=== PATIENT | male | born 1945 | race Caucasian/White ===

== ENCOUNTER 2019-05-18 07:57 | Inpatient (IN) ==
--- NOTE | 2019-05-06 10:32 | PAT Medication Instructions ---
Medication Instructions Date of Service May 06, 2019 Home Medications Medication Instructions Recorded albuterol sulfate 90 mcg/actuation 2 puffs INH Q6H PRN #8.5 gm 12/23/18 aerosol inhaler varenicline 1 mg tablet 1 mg PO BID #60 tab 04/10/19 CPAP Machine #1 ea 04/22/19 miscellaneous medical supply #1 ea 04/22/19 albuterol sulfate 90 mcg/actuation aerosol inhaler 2 puffs INH Q6H PRN aspirin 81 mg tablet,delayed release 81 mg PO DAILY atorvastatin 20 mg tablet 20 mg PO QAM citalopram 40 mg tablet 60 mg PO QAM clopidogrel 75 mg tablet 75 mg PO QAM insulin glargine 100 unit/mL (3 mL) subcutaneous pen 64 units SQ QAM magnesium oxide 200 mg PO BID metformin 1,000 mg tablet 1,000 mg PO BID nitroglycerin 0.4 mg sublingual tablet 0.4 mg SL Q5M PRN pantoprazole 40 mg tablet,delayed release 40 mg PO QAM sitagliptin 100 mg tablet 100 mg PO QAM tolterodine 4 mg capsule,extended release 24 hr 4 mg PO HS valsartan 40 mg tablet 40 mg PO HS varenicline 1 mg tablet 1 mg PO BID gabapentin [Neurontin] 600 mg PO TID Continue as directed nitroglycerin 0.4 mg sublingual tablet 0.4 mg SL Q5M PRN (if needed) ASK your prescriber and surgeon aspirin 81 mg tablet,delayed release 81 mg PO DAILY clopidogrel 75 mg tablet 75 mg PO QAM DO NOT take the morning of surgery magnesium oxide 200 mg PO BID metformin 1,000 mg tablet 1,000 mg PO BID sitagliptin 100 mg tablet 100 mg PO QAM varenicline 1 mg tablet 1 mg PO BID Take morning of surgery With a small sip of water, OTHERWISE NOTHING TO EAT OR DRINK AFTER MIDNIGHT: albuterol sulfate 90 mcg/actuation aerosol inhaler 2 puffs INH Q6H PRN (use if needed; please bring with you to hospital day of surgery if possible) atorvastatin 20 mg tablet 20 mg PO QAM citalopram 40 mg tablet 60 mg PO QAM pantoprazole 40 mg tablet,delayed release 40 mg PO QAM sitagliptin 100 mg tablet 100 mg PO QAM gabapentin [Neurontin] 600 mg PO TID Take evening before surgery albuterol sulfate 90 mcg/actuation aerosol inhaler 2 puffs INH Q6H PRN (if needed) magnesium oxide 200 mg PO BID metformin 1,000 mg tablet 1,000 mg PO BID tolterodine 4 mg capsule,extended release 24 hr 4 mg PO HS valsartan 40 mg tablet 40 mg PO HS varenicline 1 mg tablet 1 mg PO BID gabapentin [Neurontin] 600 mg PO TID Insulin Dependent Diabetic Patients * Test your blood sugar the morning of surgery * If Blood Sugar is GREATER THAN 150, take HALF of your regular dose of: insulin glargine take 32 units * If Blood Sugar is LESS THAN 150, DO NOT TAKE ANY: insulin glargine Other Notes If you have any questions please call us at [phone] or [phone] or [phone] or [phone]
--- NOTE | 2019-05-07 10:25 | Anesthesiology Consultation ---
Date of Service May 07, 2019 Assessment & Plan (1) Encounter for pre-operative examination: - Awaiting most recent vascular note (Dr. Connor). - Cardiology office visit: 04/23/19: "CHF is clinically compensated.. patient is cleared for the required back surgery from cardiac standpoint.. he will be low cardiac risk." - Check BSG AM DOS - ASA/plavix instructions per surgeon/prescriber - Possible difficult intubation: due to anatomy Chart Review Chart Review: Patient seen in Pre Admission Testing Teaching & Discussion Pre-Anesthesia Teaching/Discussion Notes: Instructed NPO after midnight before surgery,except medications with 15 cc of water. Medication instructions provided according to the PAT guidelines. History Surgery Operation Date: 05/21/19 09:55 Proposed Procedures p L5-S1 Decompression and Fusion, Possible L4-L5, Spinal Cord Monitoring - Wilberto Garcia DO Height/Weight Height: 5 ft 11 in Weight: 96.8 kg Allergies Allergy/AdvReac Type Severity Reaction Status Date / Time adhesive Allergy Unknown ADHESIVE Verified 05/07/19 11:00 TAPE: REDNESS AND BLISTERS Medications Home Medications Medication Instructions Recorded Confirmed Last Taken albuterol sulfate 90 mcg/actuation 2 puffs INH Q6H PRN #8.5 gm 12/23/18 04/30/19 Unknown aerosol inhaler aspirin 81 mg tablet,delayed 81 mg PO DAILY 12/23/18 04/30/19 Unknown release atorvastatin 20 mg tablet 20 mg PO QAM 12/23/18 04/30/19 Unknown citalopram 40 mg tablet 60 mg PO QAM 12/23/18 04/30/19 Unknown clopidogrel 75 mg tablet 75 mg PO QAM 12/23/18 04/30/19 Unknown insulin glargine 100 unit/mL (3 64 units SQ QAM ml 12/23/18 04/30/19 Unknown mL) subcutaneous pen magnesium oxide 200 mg PO BID tab 12/23/18 04/30/19 Unknown metformin 1,000 mg tablet 1,000 mg PO BID 12/23/18 04/30/19 Unknown nitroglycerin 0.4 mg sublingual 0.4 mg SL Q5M PRN 12/23/18 04/30/19 Unknown tablet pantoprazole 40 mg tablet,delayed 40 mg PO QAM 12/23/18 04/30/19 Unknown release sitagliptin 100 mg tablet 100 mg PO QAM 12/23/18 04/30/19 Unknown tolterodine 4 mg capsule,extended 4 mg PO HS 12/23/18 04/30/19 Unknown release 24 hr valsartan 40 mg tablet 40 mg PO HS tab 12/23/18 04/30/19 Unknown varenicline 1 mg tablet 1 mg PO BID #60 tab 04/10/19 04/30/19 Unknown CPAP Machine #1 ea 04/22/19 Unknown miscellaneous medical supply #1 ea 04/22/19 Unknown gabapentin [Neurontin] 600 mg PO TID 04/30/19 04/30/19 Unknown Past Medical History Medical History (Updated 05/07/19 @ 10:41 by Maria Ellison) Arthritis CAD (coronary artery disease) angioplasty/KARRIE to pRCA (2014) Carotid arterial disease "mild plaquing but no ICA stenosis.. severe left ECA stenosis" per cardiology office visit note 03/2019 Cataract COPD (chronic obstructive pulmonary disease) stable Diabetes IDDM GERD (gastroesophageal reflux disease) controlled Hyperlipidemia Hypertension Lung nodule R Peripheral arterial occlusive disease "total occlusion of the SFA and the left mid thigh area with reconstitution with collaterals and monophasic flow bilateral below knee area" per cardiology office visit note 03/2019 Sleep apnea prescribed CPAP (has not arrived yet as of 05/07/19 PAT visit) Spinal stenosis Urinary problem urinary hesitancy Exercise / Class Metabolic Activity III < 4 Walking/Shop/Light housework Past Family History Family History Mother Diabetes Heart disease Father Cancer Past Surgical History Surgical History (Updated 05/07/19 @ 10:43 by Maria Ellison) History of arthroscopy of right shoulder History of cardiac cath stent x1 (2014) History of colonoscopy History of hernia surgery X2 History of repair of left rotator cuff History of thumb surgery BILAT History of tonsillectomy Past Anesthesia History No Hx of Anesthesia Complications and No Family Hx of Anesthesia Complications History of PONV No Hx of PONV and No Hx of Motion Sickness Social History Smoking Status: Current every day smoker tobacco type: cigarettes Smoking cigarettes per day: 10 CIGS/PER DAY- TAPERING (INTERMITTENT TOBACCO USE X 50+ YEARS) Do You Dip or Chew Tobacco: No Hx Alcohol Use: Yes alcohol intake frequency: holidays/special occasions only Hx Substance Use: No substance use type: does not use Review of Systems Chronic cough (unchanged). Patient denies chest pain, shortness of breath, wheezing, palpitations. Physical Exam Vital Signs VITALS BP 150/83 P 87 TEMP 98.0 SP02 96%RA RESP 18 PHYSICAL Full neck and c-spine range of motion. Full TMJ range of motion. TMD 3.5 finger breaths Mallampati Score 4 (small oral opening) Dentition: several missing teeth, poor dentition Lungs: clear throughout to auscultation Cardiac: regular rate and rhythm, no murmurs noted Spine: normal Carotid arteries: negative bruit Extremities: no edema Testing Laboratory Results 05/07/19 10:58 05/07/19 10:58 PT 10.5 Seconds (9.0-12.0) 05/07/19 10:58 INR 1.0 (0.9-1.1) 05/07/19 10:58 APTT 27.6 Seconds (21.0-31.0) 05/07/19 10:58 Hemoglobin A1c 8.3 % (4.5-5.6) H 05/07/19 10:58 Urine Color Yellow 05/07/19 10:58 Urine Appearance Clear (Clear) 05/07/19 10:58 Urine pH 6.0 (4.5-7.5) 05/07/19 10:58 Ur Specific [place] 1.017 (1.000-1.030) 05/07/19 10:58 Urine Protein 3+ (Negative) H 05/07/19 10:58 Urine Glucose (UA) Trace (Negative) H 05/07/19 10:58 Urine Ketones Negative (Negative) 05/07/19 10:58 Urine Nitrite Negative (Negative) 05/07/19 10:58 Ur Leukocyte Esterase Negative (Negative) 05/07/19 10:58 Urine WBC (Auto) 1-5 /hpf (0-5) 05/07/19 10:58 Urine RBC (Auto) 10-30 /hpf (0-4) H 05/07/19 10:58 U Hyaline Cast (Auto) 0 /lpf (0-5) 05/07/19 10:58 U Epithel Cells (Auto) 0-5 /lpf (0-5) 05/07/19 10:58 Urine Bacteria (Auto) Negative (Negative) 05/07/19 10:58 Blood Type AB Positive 05/07/19 10:58 Antibody Screen NEGATIVE 05/07/19 10:58 *Surgeon's office made aware of elevated hgba1c/WBC. Labs will be forwarded to PCP for their reference* Electrocardiogram Date: 04/23/19 SR at 89bpm. Low voltage is precordial leads. PRWP V1-V3. Stress Test Date: 12/19/18 Type: nuclear (Lexiscan) Lexiscan stress EKG was negative for myocardial ischemia. "No ischemia noted, LVEF 47%" per cardiology office visit from 04/23/19- attempts to obtain official report nuclear portion of stress test unsuccessful. Cardiac Catheterization Date: 02/16/15 Angiographically moderate to severe 2 vessel occlusive coronary disease. S/P successful angioplasty and stenting of the pRCA with KARRIE. Other Testing Chest CT: 01/01/19: NS regions of diffuse ground-glass disease in both lungs. Findings may be secondary chronic inflammation or respiratory pneumonitis. Multiple calcified and noncalcified lymph nodes in the mediastinum. Effusion is nonspecific but may be seen in pulmonary sarcoid. Finding is stable dating back to 2014. No suspicious pulmonary nodules. Patient subsequently seen by pulmonary 01/06/19: "Patient has a combination of a specified interstitial lung disease with COPD/asthma aggravated by ongoing smoking history.. I do not believe he is a candidate currently for an open lung biopsy and the radiographic findings could be NSIP or UIP/IPF or perhaps even sarcoidosis ."
[2019-05-07 12:04] LABS: Basophils # (auto) 0.03 K/uL (0-0.2); Basophils % (auto) 0.2 %; Eosinophils # (auto) 0.12 K/uL (0-0.5); Hematocrit (blood only) 40.3 % (42-52); Hemoglobin 13.6 g/dL (14.0-18.0); Immature Granulocytes # (auto) 0.05 K/uL (0.00-0.02); Immature Granulocytes % (auto) 0.4 %; Lymphocytes # (auto) 2.33 K/uL (1.2-3.4); Mean Corpuscular Hemoglobin 32.2 pg (25-34); Mean Corpuscular Hgb Conc 33.7 g/dL (32-36); Mean Corpuscular Volume 95.3 fL (80-100); Mean Platelet Volume 9.8 fL (7.4-10.4); Monocytes # (auto) 1.02 K/uL (0.11-0.59); Monocytes % (auto) 8.3 %; Neutrophils # (auto) 8.71 K/uL (1.4-6.5); Neutrophils % (auto) 71.1 %; Platelet Count 314 K/uL (130-400); RDW Coefficient of Variation 13.1 % (11.5-14.5); RDW Standard Deviation 45.7 fL (36.4-46.3); Red Blood Count 4.23 M/uL (4.7-6.1); White Blood Count 12.26 K/uL (4.8-10.8)
[2019-05-07 12:18] LABS: BUN Creatinine Ratio 20.5 (10-20); Creatinine Clr Calc Pharmacy 52.5 ml/min; Est GFR (African American) 52.7; Est GFR (Non-African American) 45.5; Potassium 4.7 mmol/L (3.5-5.1)
[2019-05-07 12:23] LABS: Appearance Urine Clear (Clear); Bacteria Urine Automated Negative (Negative); Bilirubin Urine Negative (Negative); Blood Urine 1+ (Negative); Cast Urine Automated 0 /lpf (0-5); Color Urine Yellow; Epithelial Cell Urine Auto 0-5 /lpf (0-5); Glucose Urine UA Trace (Negative); Ketones Urine Negative (Negative); Leukocyte Esterase Urine Negative (Negative); Nitrite Urine Negative (Negative); Protein Urine 3+ (Negative); Specific Gravity Urine 1.017 (1.000-1.030); Urobilinogen Urine Negative (Negative)
[2019-05-07 12:26] LABS: Partial Thromboplastin Time 27.6 Seconds (21.0-31.0); Prothrombin Time 10.5 Seconds (9.0-12.0)
[2019-05-07 12:35] LABS: Estimated Average Glucose 192 mg/dl; Hemoglobin A1C 8.3 % (4.5-5.6)
[~2019-05-18 07:57] MED LIST: ACETAMINOPHEN 500 MG TAB PO SCH; CEFAZOLIN 2000MG 2,000 MG/15 ML SYR IV SCH; CeleBREX 200 MG CAP PO SCH; GABAPENTIN 300 MG CAP PO SCH; LR 15ML/HR IV SCH
[2019-05-18] MEDS ORDERED: LIDOCAINE HCL 2% 2 ML VIAL/AMP(20MG/ML) INFIL ONE (08:35)
[2019-05-18] MEDS ORDERED: ROCURONIUM BROMIDE 10 MG/ML 5 ML VIAL ONE (08:35)
[2019-05-18] MEDS ORDERED: ONDANSETRON INJ 2 MG/ML 2 ML VIAL ONE (08:35)
[2019-05-18] MEDS ORDERED: PROPOFOL IV EMULSION 10 MG/ML 20 ML VIAL IV ONE (08:35)
[2019-05-18] MEDS ORDERED: fentaNYL citrate 100 MCG/2 ML VIAL ONE ×2 (08:36→08:50)
[2019-05-18] MEDS ORDERED: MIDAZOLAM HCL 1 MG/ML 2ML VIAL ONE (08:36)
[2019-05-18] MEDS: D5W AND LACTATED RINGERS 1,000 ML IV SCH (09:02)
--- NOTE | 2019-05-18 09:42 | History & Physical Bridge Note ---
Date of Service May 18, 2019 History & Physical Bridge Note I have examined the patient, reviewed the History & Physical and in the interval since the performance of the History & Physical I have noted the following changes of clinical significance: no changes noted
--- NOTE | 2019-05-18 09:43 | History & Physical Report ---
Date of Service May 18, 2019 Assessment & Plan (1) Neurogenic claudication due to lumbar spinal stenosis: L5-S1 decompression/fusion, possible L4-5 Present on Admission?: Yes History of Present Illness Chief Complaint: Back and bilateral leg pain Primary Care Provider: Duran Singh This is a 73-year-old male that presents with worsening back and bilateral leg pain after failing extensive course of nonoperative care is here for surgical invention. Allergies Allergy/AdvReac Type Severity Reaction Status Date / Time adhesive Allergy Unknown ADHESIVE Verified 05/18/19 08:14 TAPE: REDNESS AND BLISTERS Home Medications Home Medications Medication Instructions Recorded Confirmed Type albuterol sulfate 90 mcg/actuation 2 puffs INH Q6H PRN #8.5 gm 12/23/18 05/18/19 Rx aerosol inhaler aspirin 81 mg tablet,delayed 81 mg PO DAILY 12/23/18 05/18/19 History release atorvastatin 20 mg tablet 20 mg PO QAM 12/23/18 05/18/19 History citalopram 40 mg tablet 60 mg PO QAM 12/23/18 05/18/19 History clopidogrel 75 mg tablet 75 mg PO QAM 12/23/18 05/18/19 History insulin glargine 100 unit/mL (3 64 units SQ QAM ml 12/23/18 05/18/19 History mL) subcutaneous pen magnesium oxide 200 mg PO BID tab 12/23/18 05/18/19 History metformin 1,000 mg tablet 1,000 mg PO BID 12/23/18 05/18/19 History nitroglycerin 0.4 mg sublingual 0.4 mg SL Q5M PRN 12/23/18 05/18/19 History tablet pantoprazole 40 mg tablet,delayed 40 mg PO QAM 12/23/18 05/18/19 History release sitagliptin 100 mg tablet 100 mg PO QAM 12/23/18 05/18/19 History tolterodine 4 mg capsule,extended 4 mg PO HS 12/23/18 05/18/19 History release 24 hr valsartan 40 mg tablet 40 mg PO HS tab 12/23/18 05/18/19 History varenicline 1 mg tablet 1 mg PO BID #60 tab 04/10/19 05/18/19 Rx CPAP Machine #1 ea 04/22/19 Rx miscellaneous medical supply #1 ea 04/22/19 Rx gabapentin [Neurontin] 600 mg PO TID 04/30/19 05/18/19 History Past Med/Surg History Family History Mother Diabetes Heart disease Father Cancer Social History (Updated 01/06/19 @ 13:22 by Munira Fagan) Preferred Language: Yoruba Communication Ability: Effective Roll Setter Required: No Beliefs That Will Affect Care: Mormon Mormon Beliefs: [employer]BAPTISM Current Living Situation: Spouse Other Information That Helps Us Care for You: No Feels Safe at Home: Yes Smoking Status: Current every day smoker Tobacco Type: cigarettes ; Cigarettes Per Day: 10 CIGS/PER DAY- TAPERING (INTERMITTENT TOBACCO USE X 50+ YEARS) ; Do You Dip or Chew Tobacco: No ; Tobacco Cessation Education Requested by Patient: No (STONE CURRENT) Hx Alcohol Use: Yes Hx Substance Use: No Childhood Exposure to Second-Hand Smoke: Yes Physical Exam Physical Exam: Patient is alert and oriented neurologically intact. Results & Data Vital Signs (Past 12 Hours) Vital Signs Temp Pulse Resp BP Pulse Ox 05/18/19 08:23 36.5 C 88 20 172/80 H 96
[2019-05-18] MEDS ORDERED: ONDANSETRON INJ 2 MG/ML 2 ML VIAL IV PRN (09:57)
[2019-05-18] MEDS ORDERED: ATROPINE SULFATE 0.1 MG/ML 10ML SYR IV PRN (09:57)
[2019-05-18] MEDS ORDERED: ALBUTEROL 0.083% NEBU SOLN 3 ML VIAL INH PRN (09:57)
[2019-05-18] MEDS ORDERED: BACITRACIN INJ 50,000 UNIT VIAL ONE (10:06)
[2019-05-18] MEDS ORDERED: BUPIVACAINE/EPINEPHRINE 0.5% MPF 1:200,000 10 ML VIAL ONE (10:06)
[2019-05-18] MEDS ORDERED: FLOSEAL HEMOSTATIC MATRIX 10ML TOP ONE (10:39)
--- NOTE | 2019-05-18 11:43 | Operative Report ---
Post Operative Report Pre & Post Diagnosis Operation Date: 05/18/19 09:35 Pre-Op Diagnosis: Neurogenic Claudication Due to lumbar Spinal Stenosis L5-S1 Post-Op Diagnosis: Neurogenic Claudication Due to lumbar Spinal Stenosis L5-S1 I identified the patient and participated in the time-out.: Yes Procedure Operation Date: 05/18/19 09:35 Actual Procedures #1 lumbar decompression with bilateral medial facetectomies and foraminotomies L4-5 L5-S1. #2 posterior spinal fusion L5-S1. #3 placement posterior instrumentation L5-S1. #4 interbody fusion L5-S1. #5 placement of peek cage 10 x 26 mm at L5-S1 peer #6 placement locally harvested morselized autograft in the posterior gutters. #7 placement infuse collagen sponge, master graft in the posterior gutters and ostial amp and interbody space. Surgeon Wilberto Garcia DO Quality Control Auditor Domi Santos Estimated Blood Loss 100 Findings Consistent with Post-Op Diagnosis Specimens None Indications This is a 73-year-old male with a marked decline in status and inability to ambulate secondary to severe neural compression. Subsequently we elected undergo the above-mentioned procedure. Description of Procedure Patient was met with identified informed consent obtained. Patient was then taken to the operative suite underwent intubation placed in a prone position on the Pedro table on top of the [place] frame. All bony prominences well-padded eyes inspected to ensure no external pressure placed upon the. This point the lumbar spine was prepped and draped in a normal sterile fashion. Sharp dissection with the assistance of Bovie cautery was performed down to and exposing the lamina and transverse processes of L5 and the sacral ala bilaterally. From caudal cephalad fashion complete laminectomy of L5 and partial laminectomy of L4 was performed including bilateral medial facetectomies and foraminotomies addressing severe spinal stenosis. Pedicle screws were then placed in L5 and S1 levels bilaterally with assistance of fluoroscopy the process siddharth plate placed by way to transfer approach and complete discectomy was performed endplates curetted to subcortical bleeding bone and a 10 x 26 mm peek cage filled with osteo-bone graft tapped in position. Rods were then locked into final position bilaterally. The transverse processes of L5 and the sacral ala burred to subcortical bleeding bone. Infuse collagen sponge master graft local autograft was placed in the posterior lateral gutters. 15 round MILES drain inserted. The incision was then closed with 1 Vicryl in the fascia 2-0 Vicryl subcutaneously and 4 Monocryl for final skin closure. Steri-Strips dressings placed. Patient will continue to PACU stable disc. Please note Domi Santos present at the entire procedure involved in patient positioning complex portions of the surgery and final skin closure. Lastly spinal cord monitoring was utilized that the procedure no changes noted. I attest to the content of the Intraoperative Record and any orders documented therein. Any exceptions are noted below.
--- NOTE | 2019-05-18 12:08 | Fluoroscopy Report ---
FL lumbar spine 2-3V CLINICAL HISTORY: L5-S1 DECOMPRESSION/FUSION/INTERBODY POSS L4-5 COMPARISON STUDY: None. FLUOROSCOPY TIME: 18 seconds. FINDINGS: 2 fluoroscopic spot images of the lower lumbar spine demonstrate posterior decompression fu lizzy at L5-S1 with pedicle screws and rods. The hardware is intact. IMPRESSION: Fluoroscopy provided for L5-S1 posterior decompression and fusion ACT 112: Negative or not required by law. Electronically signed by: Ed Rodríguez M.D. 05/18/2019 12:07 PM
[2019-05-18] MEDS: HYDROmorphone INJ 1 MG/ML SYRINGE IV PRN ×4 (12:12→12:27)
--- NOTE | 2019-05-18 12:54 | Anesthesiology Progress Note ---
Date of Service May 18, 2019 Anesthesia Post Procedure Vital Signs Vital Signs: Temp Pulse Pulse Resp BP Pulse Ox 05/18/19 12:45 36.4 C L 78 12 129/66 95 05/18/19 12:35 36.4 C L 84 12 142/63 H 98 05/18/19 12:25 86 12 129/86 98 05/18/19 12:15 83 12 156/60 H 98 05/18/19 12:05 84 13 155/68 H 99 05/18/19 11:58 36.0 C L 85 18 180/93 H 99 05/18/19 08:23 36.5 C 88 20 172/80 H 96 Pain Intensity Right Lower Back: Pain Intensity: 4 Lower Back: Pain Intensity: 5 Transfer of Care Handoff Completed per policy Notes Mental Status: alert / awake / arousable Patient Amnestic to Procedure: Yes Nausea / Vomiting: adequately controlled Pain: adequately controlled Airway Patency, RR, SpO2: stable & adequate BP & HR: stable & adequate Hydration State: stable & adequate Anesthetic Complications: no major complications apparent
[2019-05-18] MEDS ORDERED: LORazepam 0.5 MG/1 ML VIAL IV PRN (13:12)
[2019-05-18] MEDS ORDERED: ALUMINUM/MAGNESIUM SUSP 30 ML UDC PO PRN (13:12)
[2019-05-18] MEDS ORDERED: ACETAMINOPHEN 500 MG TAB PO PRN (13:12)
[2019-05-18] MEDS ORDERED: DO NOT ADMINISTER PNEUMOCOCCAL VACCINE PRN (13:12)
[2019-05-18] MEDS ORDERED: NITROGLYCERIN SL 0.4 MG/TAB TAB SL PRN (13:12)
[2019-05-18] MEDS ORDERED: ALBUTEROL HFA 8 GM INHALER INH PRN (13:12)
[2019-05-18] MEDS ORDERED: ACETAMINOPHEN 1,000 MG/100 ML VIAL IV PRN (13:12)
[2019-05-18] MEDS ORDERED: TRAMADOL HCL 50 MG TABLET PO PRN (13:12)
[2019-05-18] MEDS ORDERED: PROMETHAZINE HCL 12.5 MG in SODIUM CHLORIDE 0.9% 50 ML IV PRN (13:12)
[2019-05-18] MEDS ORDERED: FAMOTIDINE 20 MG TAB PO PRN (13:12)
[2019-05-18] MEDS ORDERED: MAGNESIUM HYDROXIDE SUSP 30 ML UDC PO PRN (13:12)
[2019-05-18] MEDS ORDERED: HYDROmorphone INJ 1 MG/ML SYRINGE IV PRN (13:12)
[2019-05-18] MEDS ORDERED: HYDROmorphone INJ 0.5 MG/0.5 ML SYR IV PRN (13:12)
[2019-05-18] MEDS ORDERED: bisacodyL 10 MG SUPP PR PRN (13:12)
[2019-05-18] MEDS ORDERED: LORazepam 0.5 MG TAB PO PRN (13:12)
[2019-05-18] MEDS ORDERED: SOD PHOSPHATE/SOD BIPHOSPHATE ENEMA 132 ML BTL PR PRN (13:12)
[2019-05-18] MEDS ORDERED: ONDANSETRON 4 MG OD TAB PO PRN (13:12)
[2019-05-18] MEDS ORDERED: NALOXONE HCL 0.4 MG/1 ML VIAL/CARP IV PRN (13:12)
[2019-05-18] MEDS ORDERED: DO NOT ADMINISTER FLU VACCINE PRN (13:12)
[2019-05-18] MEDS ORDERED: METOCLOPRAMIDE HCL INJ 5 MG/ML 2 ML VIAL IV PRN (13:12)
[2019-05-18] MEDS: OXYCODONE HCL IR 5 MG TAB (IMMEDIATE RELEASE) PO PRN ×2 (13:47→22:08)
[2019-05-18] MEDS: SODIUM CHLORIDE 0.9% 1000ML 1,000 ML IV SCH ×2 (13:48→23:40)
[2019-05-18] MEDS ORDERED: GLUCAGON FOR INJ 1 MG VIAL SQ PRN (13:59)
[2019-05-18] MEDS ORDERED: GLUCOSE 40% GEL 15 GM TUBE PO PRN (13:59)
[2019-05-18] MEDS ORDERED: GLUCOSE 10 TABS/TUBE PO PRN (13:59)
[2019-05-18] MEDS ORDERED: DEXTROSE 50% 50 ML SYRINGE IV PRN (13:59)
--- NOTE | 2019-05-18 14:08 | Consultation ---
Date of Consultation May 18, 2019 Assessment & Plan (1) Status post lumbar surgery: Post op day# 0 S/P L4-S1 lumbar decompression and fusion by Dr Garcia EBBozena#100ml -pain management per ortho -wound management per ortho -PT/OT as appropriate -DVT prophylaxis per ortho -incentive spirometry -monitor H&H for acute blood loss anemia; pre-op hgb: 13.6 (2) COPD (chronic obstructive pulmonary disease): No acute exacerbation -Continue home inhalers (3) DM type 2 (diabetes mellitus, type 2): A1c: 8.3 in 05/07/2019 -Hold metformin, sitagliptin and home insulin -Basal bolus insulin per protocol (4) Hypertension: Stable -Continue valsartan (5) CKD (chronic kidney disease), stage III: Pre-op Cr: 1.5, GFR: 45 -Monitor renal functions -Avoid nephrotoxic agents when possible (6) JAY on CPAP: -CPAP HS (7) Tobacco use: -Currently attempting to quit and is on Chantix, will continue Chantix -Smoking cessation encouraged DVT Prophylaxis -SCDs per ortho Disposition per primary service Follows with Duran Singh PA-C for routine care Pt was seen and care coordinated with Dr Mortensen . See addendum Thank you for this consultation. We will follow the patient with you during their hospital stay. You can reach a member of the [facility] Team 17/09 via pager @ [phone]. Supervising Physician Co-Signing Physician Notes Attending addendum: Patient seen and examined care coordinated with Sofya Jones PA-C This 73-year-old male underwent lumbar decompression surgery by Dr. Garcia today Denies of any chest pain shortness of breath, has moderate back pain/soreness in the surgical area Patient reports of being unable to void since recovering from anesthesia Denies of any lower abdominal discomfort or pain Patient reports he never had any problem/issue with voiding in the past Physical exam: GENERAL: No sign of distress, HEENT: Sclera nonicteric, pink-purple bilateral equal reactive to light extraocular muscle intact Normal oral mucosa, neck: No JVD, no thyromegaly, trachea midline Lungs: Clear to auscultate, no wheeze or rales Cardiovascular: Regular S1 and S2, no murmur or gallop, no JVD, no lower extremity edema Abdomen: Soft, mildly distended,, nontender Extremities: No rash or deformity, normal joint/status post lumbar decompression surgery Neuro: No focal neurological deficit, no dysarthria, no facial droop Psych: Alert awake oriented x3: Euthymic Lumbar decompression surgery: Patient is status post lumbar decompression surgery chronic back pain lumbar spinal stenosis Postoperative day 0 Continue pain management, PT OT as per orthopedics recommendation Urinary retention Developed acute urinary retention postoperatively Bladder scan showed more than 510 urine volume Possible acute urinary retention secondary to anesthesia, pain medications Ordered Gould catheter for bladder drainage, Voiding will be done a day before discharge Ordered for Flomax for possible underlying BPH Please refer to further documentation by Bety Jones PA-C for discussion of other chronic issues Katlin Mortensen MD History of Present Illness Requesting Physician: Dr Garcia Reason for Consultation: Post op medical management Attending Physician: Wilberto Garcia DO History of Present Illness Pt is 73 y/o M with PMH CAD s/p stent in 2014, DM II, CKD III, HTN, CHF, PAD, COPD, JAY on CPAP, tobacco use seen in consultation for postop medical management s/p L4-S1 decompression fusion today by Dr. Garcia. Postop patient reporting some low back pain. Denies nausea, vomiting, chest pain, shortness of breath, dizziness, headache. Denies lower extremity pain or paresthesias. Reports last BM yesterday. Denies fever/chills, diaphoresis,neck pain, orthopnea, palpitations, cough, sore throat, choking, otalgia, rhinorrhea, abdominal pain, paresthesias, extremity weakness, extremity edema, rashes, urinary symptoms. Allergies Allergy/AdvReac Type Severity Reaction Status Date / Time adhesive Allergy Unknown ADHESIVE Verified 05/18/19 08:14 TAPE: REDNESS AND BLISTERS Home Medications Home Medications Medication Instructions Recorded Confirmed Type albuterol sulfate 90 mcg/actuation 2 puffs INH Q6H PRN #8.5 gm 12/23/18 05/18/19 Rx aerosol inhaler aspirin 81 mg tablet,delayed 81 mg PO DAILY 12/23/18 05/18/19 History release atorvastatin 20 mg tablet 20 mg PO QAM 12/23/18 05/18/19 History citalopram 40 mg tablet 60 mg PO QAM 12/23/18 05/18/19 History clopidogrel 75 mg tablet 75 mg PO QAM 12/23/18 05/18/19 History insulin glargine 100 unit/mL (3 64 units SQ QAM ml 12/23/18 05/18/19 History mL) subcutaneous pen magnesium oxide 200 mg PO BID tab 12/23/18 05/18/19 History metformin 1,000 mg tablet 1,000 mg PO BID 12/23/18 05/18/19 History nitroglycerin 0.4 mg sublingual 0.4 mg SL Q5M PRN 12/23/18 05/18/19 History tablet pantoprazole 40 mg tablet,delayed 40 mg PO QAM 12/23/18 05/18/19 History release sitagliptin 100 mg tablet 100 mg PO QAM 12/23/18 05/18/19 History tolterodine 4 mg capsule,extended 4 mg PO HS 12/23/18 05/18/19 History release 24 hr valsartan 40 mg tablet 40 mg PO HS tab 12/23/18 05/18/19 History varenicline 1 mg tablet 1 mg PO BID #60 tab 04/10/19 05/18/19 Rx CPAP Machine #1 ea 04/22/19 Rx miscellaneous medical supply #1 ea 04/22/19 Rx gabapentin [Neurontin] 600 mg PO TID 04/30/19 05/18/19 History Patient History Medical History (Updated 05/18/19 @ 14:11 by Diamond Jones PA-C) Arthritis CAD (coronary artery disease) angioplasty/KARRIE to pRCA (2014) Carotid arterial disease "mild plaquing but no ICA stenosis.. severe left ECA stenosis" per cardiology office visit note 03/2019 Cataract CKD (chronic kidney disease), stage III COPD (chronic obstructive pulmonary disease) stable Diabetes IDDM GERD (gastroesophageal reflux disease) controlled Hyperlipidemia Hypertension Lung nodule R Peripheral arterial occlusive disease "total occlusion of the SFA and the left mid thigh area with reconstitution with collaterals and monophasic flow bilateral below knee area" per cardiology office visit note 03/2019 Sleep apnea prescribed CPAP (has not arrived yet as of 05/07/19 PAT visit) Spinal stenosis Urinary problem urinary hesitancy Surgical History (Updated 05/18/19 @ 14:11 by Diamond Jones PA-C) History of arthroscopy of right shoulder History of cardiac cath stent x1 (2015) History of colonoscopy History of hernia surgery X2 History of repair of left rotator cuff History of thumb surgery BILAT History of tonsillectomy Family History Mother Diabetes Heart disease Father Cancer Social History (Updated 05/18/19 @ 14:07 by Diamond Jones PA-C) Preferred Language: German Communication Ability: Effective Vegetable Vendor Required: No Beliefs That Will Affect Care: Religion Religion Beliefs: DRUZE Current Living Situation: Spouse Other Information That Helps Us Care for You: No Feels Safe at Home: Yes Smoking Status: Current every day smoker Tobacco Type: cigarettes ; Cigarettes Per Day: 1/2-1ppd, currently TAPERING (INTERMITTENT TOBACCO USE X 50+ YEARS) ; Do You Dip or Chew Tobacco: No ; Tobacco Cessation Education Requested by Patient: No (CHANTIX CURRENT) Hx Alcohol Use: Yes Alcohol Intake Frequency: Rarely Hx Substance Use: No Childhood Exposure to Second-Hand Smoke: Yes Review of Systems Review of Systems: All systems reviewed & are unremarkable except as noted in HPI & below Physical Exam Physical Exam: General: no distress, WDWN Head: normocephalic, atraumatic Eyes: PERRL, EOM's intact, conjunctiva non-injected, anicteric ENT: normal inspection external ears, nose, mucous membranes moist Neck: supple, trachea midline, non-tender Lungs: clear, no respiratory distress, no wheezing/rhonchi/rales CV: RRR, no murmur, no pretibial edema Abd: normal BS, soft, non-tender Ext: no cyanosis, no calf tenderness; pedal pushes and pulls intact bilaterally, sensation to light touch intact, distal pulses intact Back: surgical dressing dry and intact Neuro: A&O x 3, no focal deficits noted, normal affect Skin: warm, dry Results & Data ([facility]) Vital Signs (Past 12 Hours) Vital Signs Temp Pulse Pulse Pulse Resp BP Pulse Ox 05/18/19 13:38 84 15 143/63 H 95 05/18/19 13:17 36.4 C L 78 16 141/64 H 94 05/18/19 12:45 36.4 C L 78 12 129/66 95 05/18/19 12:35 36.4 C L 84 12 142/63 H 98 03/23/20 12:25 86 12 129/86 98 05/18/19 12:15 83 12 156/60 H 98 05/18/19 12:05 84 13 155/68 H 99 05/18/19 11:58 36.0 C L 85 18 180/93 H 99 05/18/19 08:23 36.5 C 88 20 172/80 H 96
[2019-05-18] MEDS: GABAPENTIN 600 MG TAB PO SCH ×2 (15:17→22:09)
[2019-05-18] MEDS: INSULIN ASPART 100 UNITS/ML 3 ML PEN SC SCH ×2 (19:10→22:11)
[2019-05-18] MEDS: CEFAZOLIN 2000MG 2,000 MG/15 ML SYR IV SCH (19:12)
[2019-05-18] MEDS ORDERED: VALSARTAN 80 MG TAB PO SCH (21:00)
[2019-05-18] MEDS ORDERED: TOLTERODINE TARTRATE LA 4 MG CAPCR PO SCH (21:00)
[2019-05-18] MEDS ORDERED: DOCUSATE SODIUM/SENNA 50/8.6MG TAB PO SCH (21:00)
[2019-05-18] MEDS: INSULIN GLARGINE SOLOSTAR 100 UNITS/ML 3 ML PEN SC SCH (22:12)
[2019-05-18] MEDS: MAGNESIUM OXIDE 400 MG TAB PO SCH (22:15)
[2019-05-18] MEDS: VARENICLINE 1 MG TAB PO SCH (22:16)
[2019-05-18] MEDS: CARBOHYDRATES FOR HYPOGLYCEMIA PO PRN (23:56)
[2019-05-19] MEDS: CARBOHYDRATES FOR HYPOGLYCEMIA PO PRN ×2 (00:10→00:25)
[2019-05-19 00:11] LABS: Appearance Urine Clear (Clear); Bilirubin Urine Negative (Negative); Blood Urine 2+ (Negative); Color Urine Yellow; Glucose Urine UA Negative (Negative); Ketones Urine Negative (Negative); Leukocyte Esterase Urine Negative (Negative); Nitrite Urine Negative (Negative); Protein Urine 1+ (Negative); Specific Gravity Urine <= 1.005 (1.000-1.030); Urobilinogen Urine Negative (Negative); pH Urine 5.5 (4.5-7.5)
[2019-05-19 00:20] LABS: Bacteria Urine Negative (Negative); RBC Urine 0-4 /hpf (0-4)
[2019-05-19] MEDS ORDERED: DEXTROSE 50% 50 ML SYRINGE IV STA (00:51)
[2019-05-19] MEDS: CEFAZOLIN 2000MG 2,000 MG/15 ML SYR IV SCH (02:07)
[2019-05-19] MEDS: OXYCODONE HCL IR 5 MG TAB (IMMEDIATE RELEASE) PO PRN ×2 (02:07→06:13)
[2019-05-19] MEDS: ONDANSETRON INJ 2 MG/ML 2 ML VIAL IV PRN (04:47)
[2019-05-19] MEDS: POLYETHYLENE (MIRALAX) 17 GM PACK PO SCH ×2 (05:46→13:07)
[2019-05-19 05:53] LABS: Basophils # (auto) 0.03 K/uL (0-0.2); Basophils % (auto) 0.2 %; Eosinophils # (auto) 0.05 K/uL (0-0.5); Eosinophils % (auto) 0.3 %; Hematocrit (blood only) 36.1 % (42-52); Hemoglobin 11.8 g/dL (14.0-18.0); Immature Granulocytes # (auto) 0.04 K/uL (0.00-0.02); Immature Granulocytes % (auto) 0.2 %; Mean Corpuscular Hemoglobin 31.6 pg (25-34); Mean Corpuscular Hgb Conc 32.7 g/dL (32-36); Mean Corpuscular Volume 96.8 fL (80-100); Monocytes % (auto) 8.5 %; Neutrophils # (auto) 12.65 K/uL (1.4-6.5); Neutrophils % (auto) 76.8 %; Platelet Count 284 K/uL (130-400); RDW Coefficient of Variation 13.5 % (11.5-14.5); RDW Standard Deviation 47.4 fL (36.4-46.3); Red Blood Count 3.73 M/uL (4.7-6.1); White Blood Count 16.47 K/uL (4.8-10.8)
[2019-05-19 06:33] LABS: BUN Creatinine Ratio 14.5 (10-20); Calcium 8.7 mg/dl (8.5-10.1); Creatinine Clr Calc Pharmacy 51.6 ml/min; Est GFR (African American) 51.9; Est GFR (Non-African American) 44.8; Potassium 5.3 mmol/L (3.5-5.1)
[2019-05-19] MEDS: D5W AND LACTATED RINGERS 1,000 ML IV SCH (08:55)
[2019-05-19] MEDS: FLUTICASONE/VILANTEROL 200/25MCG 14 PUFFS/INHALER INH SCH ×2 (08:59→10:04)
[2019-05-19] MEDS: GABAPENTIN 600 MG TAB PO SCH ×3 (09:00→15:21)
[2019-05-19] MEDS ORDERED: SITAGLIPTIN PHOSPHATE 100 MG TAB PO SCH (09:00)
[2019-05-19] MEDS: PANTOprazole 40 MG TAB PO SCH ×2 (09:00→10:05)
[2019-05-19] MEDS: MAGNESIUM OXIDE 400 MG TAB PO SCH ×2 (09:00→10:04)
[2019-05-19] MEDS: ASPIRIN 81 MG ECTAB PO SCH ×2 (09:01→10:04)
[2019-05-19] MEDS: ATORVASTATIN 20 MG TAB PO SCH ×2 (09:01→10:04)
[2019-05-19] MEDS: VARENICLINE 1 MG TAB PO SCH ×2 (09:02→10:04)
[2019-05-19] MEDS: CITALOPRAM 20 MG TAB PO SCH ×2 (09:02→10:04)
[2019-05-19] MEDS: INSULIN GLARGINE SOLOSTAR 100 UNITS/ML 3 ML PEN SC SCH (09:03)
[2019-05-19] MEDS: INSULIN ASPART 100 UNITS/ML 3 ML PEN SC SCH ×5 (09:10→23:50)
[2019-05-19] MEDS ORDERED: ACETAMINOPHEN 1,000 MG/100 ML VIAL IV STA (09:12)
[2019-05-19] MEDS: SODIUM CHLORIDE 0.9% 1000ML 1,000 ML IV SCH (09:19)
--- NOTE | 2019-05-19 09:23 | Hospitalist Progress Note ---
Date of Service May 19, 2019 Assessment & Plan (1) Somnolence: (2) Hypoxia: During my evaluation this morning patient was very somnolent and difficult to arouse. He did arouse with verbal and tactile stimuli but immediately fell back to sleep. He was alert to self and place. According to nurse patient with episode of hypoglycemia overnight with BSG in the 40s. BSG 142 this morning. He did have 0.5 mg of Dilaudid IV at approximately 4 AM; he also had IV Phenergan and 10 mg of oral oxycodone at 6 AM. Elevated temp this morning at 37.9. He did receive 1 g IV acetaminophen at 6 AM and temp now 37.5. He is otherwise hemodynamically stable. Per CMS guidelines he does meet criteria for seizures secondary to elevated heart rate 98 & leukocytosis 16 K. He did have elevated to WBC at 12 K preoperatively and he did receive IV Decadron preoperatively which could be causing the leukocytosis. Hypoxia ? 2/2 to CHF, PNA, Opoid induced, PE, CAD Placed patient on CPAP Obtain stat chest x-ray Obtain stat ABG, proBNP, lactic acid, procalcitonin, blood cultures, troponin CBC and BMP reviewed from this morning, urinalysis performed last evening which appears negative Continue oxygen segmentation obtain echocardiogram lasix 20mg IV x 1 now please refer to Dr. Mortensen addendum for further assessment and plan (3) Hyperkalemia: K5.3 Hold valsartan Repeat in a.m. (4) Urinary retention: Likely in setting of postop state as well as likely underlying BPH Continue Gould catheter for now will need voiding trial eventually Hold tolterodine (5) Status post lumbar surgery: Post op day# 1 S/P L4-S1 lumbar decompression and fusion by Dr Radha HUBER#100ml Pain/wound management per Ortho Activity and therapy as directed by Ortho Encourage use of incentive spirometry Hemoglobin 11.8 this morning; pre-op hgb: 13.6 (6) COPD (chronic obstructive pulmonary disease): as above Continue home inhalers (7) DM type 2 (diabetes mellitus, type 2): A1c: 8.3 in 05/07/2019 Hold metformin, sitagliptin and home insulin Patient with episode of hypoglycemia last evening Consult glycemic pharmacy -appreciate their input (8) Hypertension: Stable Hold valsartan 2/2 to elevated K (9) CKD (chronic kidney disease), stage III: BUN/creatinine 22 and 1.53 Pre-op Cr: 1.5, GFR: 45 Monitor renal functions Avoid nephrotoxic agents when possible (10) JAY on CPAP: CPAP HS (11) Tobacco use: Currently attempting to quit and is on Chantix, will continue Chantix Smoking cessation encouraged DVT Prophylaxis SCDs per ortho Disposition per primary service Follows with Duran Singh PA-C for routine care Pt was seen and care coordinated with Dr Mortensen . See addendum Thank you for this consultation. We will follow the patient with you during their hospital stay. You can reach a [facility] via pager @ [phone]. Admission and Anticipated Discharge Date Admission Date: May 18, 2019 Supervising Physician Co-Signing Physician Notes ATTENDING ADDENDUM : pt noted be very lethergic and hypoxic ordred for Narcane as has recieved combination of pain meds this AM for back pain pt woke up briefly remains hypoxic with requiring 3-4 L 02 via nasal canula remains unresponsive Cxray shows pulm vascular congestion lab reveals worsening of renal function cr elevated 1.9 with hyperkalemia Nephrology consulted Lasix 80 mg IV ordered pt developed acute renal failure with ATN /anuria no urine out put noted in Gould after IV Lasix repeat labs contineus to worsen pt remains lethergic due to metabolic encephalopathh with uremia D/w Neprho pt will need emegent dialysi due to vol over load causing hypoxemic resp failure /uremia , worsening of hyperkalemia , no improvement with Lasix , insuin , dextose PO kaeyxalate not given as pt was too lathergic to take PO Critical care team consulted for dilasyis catheter placemement Rt IJ temprorary catheter placed emegent HD with low K bath per nephrology LOW GRADE FEVER : no evidence of sepsis leukopcytosis noted , received IV steroids post procedure blood culture ordered Empiric ABX Van /Zosyn as pt had recent spinal surgery pro calcintoning and lactic acid negative ACUTE CHF WITH DIASTOLIC DYSFUNCITON/HFpEF vol over load due to ATN , ,with aneuria no urine out put with JOHN lasix geting emergent HD ACUTE RENAL FAILURE ON CKD STAGE 3 : no urine out put with IV fluids /ATN ? emergent HD per Nephrilogy follow BMP Acute hypoxemic resp failure : due to vol over load cont bipap Dialysis for vol and uremia management CONFUSION /LETHERGY /ALTERED MENTAL STATUS : metabolic encephalopahty due to uremia /hypoxemia emergent dialysis for vol manamement , uremia cont bipap FULL CODE pt's updated over phone DISPOSITION: pts status updated to Primary service spinal Ortho Dr Garcia discussed pts acute change of status given multiple for acute medical issues , pt will be transferred to Hospitalist service per Spine Ortho -there is no post op complication from Lumber decompression surgery Katlin Mortensen MD Subjective Patient was seen and examined in room 316-1. POD #[address] Garcia. Nurse Leandro is at bedside. According to nurse patient had a rough night as he had episode of hypoglycemia with blood sugars in the 40s. It required multiple attempts to elevate blood sugar and this morning he was in the 140s. There was also complained of some nausea around 6 AM therefore he received IV Phenergan. Regarding pain medications he did receive 0.5 mg of IV Dilaudid at approximately 4 AM and 10 mg of Roxicodone at 6 AM. I am unable to obtain history from patient as he is very somnolent. He does arouse to tactile stimuli but falls right back to sleep. He is currently requiring 4 L of oxygen which is new. Review of Systems Review of Systems: Unobtainable due to cognitive status and Unobtainable due to reduced consciousness Physical Exam Physical Exam: Constitutional: Obese male, lying in bed, very somnolent and snoring, arousable to verbal and tactile stimuli but falls right back asleep, WD/WN vitals as above, NAD Head: Normocephalic, Atraumatic Eyes: conjunctivae normal, anicteric sclerae ENMT: external ear and nose normal, oropharynx normal Neck: trachea midline, no thyromegaly normal visual inspection Respiratory: Increased respiratory effort, snoring, bilateral rales and rhonchi noted bibasilarly, mouth breathing, no accessory muscle use normal. Cardiovascular: RRR, no murmur, no edema Vessels: no JVD or carotid bruit Chest: normal inspection of chest Abdomen: Distended abdomen secondary to obesity, firm, positive BS x4, nontender, no hepatosplenomegaly Musculoskeletal: no cyanosis or clubbing, unable to examine strength secondary to somnolence Skin: no rashes, warm and dry normal turgor, lumbar dressing CDI Neurologic: nl, no face palsy, no dysarthria CN's II-XI intact bilaterally and moves all extremities Psychiatric: Somnolent, arouses to tactile and verbal stimuli A+Ox3, euthymic affect Lymphatic: no cervical or axillary lymphadenopathy : Gould catheter in place Results & Data ([facility]) Vital Signs (Past 12 Hours) Vital Signs Temp Pulse Pulse Resp BP Pulse Ox 05/19/19 07:14 37.9 C H 98 H 20 130/66 93 05/19/19 06:22 91 05/19/19 06:20 82 L 05/19/19 03:54 92 H 18 90 05/19/19 03:46 36.5 C 86 18 149/75 H 94 05/18/19 23:33 37.0 C 80 20 149/58 H 90 05/18/19 22:56 76 16 96 Laboratory Results Short CBC 05/07/19 05/18/19 05/18/19 Range/Units 10:58 08:18 09:58 WBC (4.8-10.8) K/uL Hgb (14.0-18.0) g/dL Hct (42-52) % Plt Count (130-400) K/uL Creatinine 1.51 H (0.6-1.4) mg/dl POC Glucose 74 56 L* (70-99) mg/dl 05/18/19 05/18/19 05/18/19 Range/Units 10:05 12:01 13:38 WBC (4.8-10.8) K/uL Hgb (14.0-18.0) g/dL Hct (42-52) % Plt Count (130-400) K/uL Creatinine (0.6-1.4) mg/dl POC Glucose 109 H 166 H 128 H (70-99) mg/dl 05/18/19 05/18/19 05/18/19 Range/Units 17:08 20:35 23:52 WBC (4.8-10.8) K/uL Hgb (14.0-18.0) g/dL Hct (42-52) % Plt Count (130-400) K/uL Creatinine (0.6-1.4) mg/dl POC Glucose 141 H 161 H 41 L* (70-99) mg/dl 05/19/19 05/19/19 05/19/19 Range/Units 00:08 00:22 00:37 WBC (4.8-10.8) K/uL Hgb (14.0-18.0) g/dL Hct (42-52) % Plt Count (130-400) K/uL Creatinine (0.6-1.4) mg/dl POC Glucose 49 L* 61 L* 61 L* (70-99) mg/dl 05/19/19 05/19/19 05/19/19 Range/Units 01:10 05:42 05:42 WBC 16.47 H (4.8-10.8) K/uL Hgb 11.8 L (14.0-18.0) g/dL Hct 36.1 L (42-52) % Plt Count 284 (130-400) K/uL Creatinine 1.53 H (0.6-1.4) mg/dl POC Glucose 125 H (70-99) mg/dl 05/19/19 05/19/19 05/19/19 Range/Units 05:51 07:19 08:09 WBC (4.8-10.8) K/uL Hgb (14.0-18.0) g/dL Hct (42-52) % Plt Count (130-400) K/uL Creatinine (0.6-1.4) mg/dl POC Glucose 132 H 153 H 142 H (70-99) mg/dl BMP 05/19/19 05:42 Sodium 136 Potassium 5.3 H Chloride 103 Carbon Dioxide 28 BUN 22 H Creatinine 1.53 H Glucose 140 H Calcium 8.7 Urine 05/19/19 Range/Units 00:00 Urine Color Yellow Urine Appearance Clear (Clear) Urine pH 5.5 (4.5-7.5) Ur Specific [place] <= 1.005 (1.000-1.030) Urine Protein 1+ H (Negative) Urine Glucose (UA) Negative (Negative) Medications Administered Aspirin (Ecotrin Ectab) 81 mg PO DAILY [facility] Stop: 06/18/19 08:59 Last Admin: 05/19/19 09:01 Dose: 81 mg Documented by: [id number] Atorvastatin Calcium (Lipitor) 20 mg PO [facility] Stop: 06/18/19 08:59 Last Admin: 05/19/19 09:01 Dose: 20 mg Documented by: [id number] Citalopram Hydrobromide (Celexa) 60 mg PO QAM [facility] Stop: 06/18/19 08:59 Last Admin: 05/19/19 09:02 Dose: 60 mg Documented by: [id number] Fluticasone/Vilanterol (Breo Ellipta 200/25 Mcg Inh) 1 puffs INH DAILY [facility] Stop: 06/18/19 08:59 Last Admin: 05/19/19 08:59 Dose: 1 puffs Documented by: [id number] Gabapentin (Neurontin) 600 mg PO TID [facility] Stop: 06/17/19 13:59 Last Admin: 05/19/19 09:00 Dose: 600 mg Documented by: [id number] Admin: 05/18/19 22:09 Dose: 600 mg Documented by: [id number] Admin: 05/18/19 15:17 Dose: 600 mg Documented by: [id number] Hydromorphone HCl (Dilaudid) 0.5 mg IV Q3H PRN PRN Reason: MOD pain (scale 4-6) & Pre PT Stop: 06/01/19 13:11 Last Admin: 05/19/19 04:40 Dose: 0.5 mg Documented by: [id number] Dextrose/Lactated Ringer's (D5w And Lactated Ringers) 1,000 mls @ 15 mls/hr IV .Q24H [facility] Stop: 06/17/19 08:59 Last Admin: 05/19/19 08:55 Dose: Not Given Documented by: [id number] Infusion: 05/18/19 10:08 Dose: 0 mls/hr Documented by: [id number] Admin: 05/18/19 09:02 Dose: 15 mls/hr Documented by: [id number] Acetaminophen (Ofirmev) 1,000 mg in 100 mls @ 400 mls/hr IV Q8H PRN PRN Reason: MILD Pain Rating 1,2,3 Stop: 05/19/19 13:11 Last Infusion: 05/19/19 06:09 Dose: 0 mls/hr Documented by: [id number] Admin: 05/19/19 05:54 Dose: 400 mls/hr Documented by: [id number] Promethazine HCl 12.5 mg/ (Sodium Chloride) 50.5 mls @ 204 mls/hr IV Q6H PRN PRN Reason: Nausea &/or Vomiting Stop: 06/17/19 13:11 Last Infusion: 05/19/19 06:29 Dose: 0 mls/hr Documented by: [id number] Admin: 05/19/19 06:14 Dose: 204 mls/hr Documented by: [id number] Sodium Chloride (Nss 1000ml) 1,000 mls @ 100 mls/hr IV .Q10H [facility] Stop: 06/17/19 13:11 Last Admin: 05/19/19 09:19 Dose: 100 mls/hr Documented by: [id number] Infusion: 05/19/19 09:02 Dose: 0 mls/hr Documented by: [id number] Infusion: 05/19/19 06:29 Dose: 100 mls/hr Documented by: [id number] Infusion: 05/19/19 05:54 Dose: 0 mls/hr Documented by: [id number] Admin: 05/18/19 23:40 Dose: 100 mls/hr Documented by: [id number] Infusion: 05/18/19 23:40 Dose: 100 mls/hr Documented by: [id number] Admin: 05/18/19 13:48 Dose: 100 mls/hr Documented by: [id number] Insulin Aspart (Novolog Flexpen) 0 units SC ACHS [facility] Stop: 06/17/19 16:29 Last Admin: 05/19/19 09:10 Dose: Not Given Documented by: [id number] Admin: 05/18/19 22:11 Dose: 1 units Documented by: [id number] Cosigned by: [id number] Admin: 05/18/19 19:10 Dose: 17 units Documented by: [id number] Cosigned by: [id number] Insulin Glargine (Lantus Solostar Pen) 0 - 30 units SC BID MONI; Protocol Stop: 06/17/19 20:59 Last Admin: 05/19/19 09:03 Dose: 16 units Documented by: [id number] Cosigned by: [id number] Admin: 05/18/19 22:12 Dose: 16 units Documented by: [id number] Cosigned by: [id number] Magnesium Oxide (Mag-Ox) 200 mg PO BID [facility] Stop: 06/17/19 20:59 Last Admin: 05/19/19 09:00 Dose: 200 mg Documented by: [id number] Admin: 05/18/19 22:15 Dose: 200 mg Documented by: [id number] Miscellaneous (Carbohydrates For Hypoglycemia) 15 - 30 gm PO UD PRN PRN Reason: Hypoglycemia Protocol Stop: 06/17/19 13:58 Last Admin: 05/19/19 00:25 Dose: 15 gm Documented by: [id number] Admin: 05/19/19 00:10 Dose: 30 gm Documented by: [id number] Admin: 05/18/19 23:56 Dose: 30 gm Documented by: [id number] Ondansetron HCl (Zofran) 4 mg IV Q6H PRN PRN Reason: Nausea &/or Vomiting Stop: 06/17/19 13:11 Last Admin: 05/19/19 04:47 Dose: 4 mg Documented by: [id number] Oxycodone HCl (Roxicodone Immediate Rel) 5 - 10 mg PO Q4H PRN PRN Reason: Moderate-Severe Pain & Pre PT Stop: 06/01/19 13:11 Last Admin: 05/19/19 06:13 Dose: 10 mg Documented by: [id number] Admin: 05/19/19 02:07 Dose: 10 mg Documented by: [id number] Admin: 05/18/19 22:08 Dose: 10 mg Documented by: [id number] Admin: 05/18/19 13:47 Dose: 10 mg Documented by: [id number] Pantoprazole Sodium (Protonix) 40 mg PO QAM [facility] Stop: 06/18/19 08:59 Last Admin: 05/19/19 09:00 Dose: 40 mg Documented by: [id number] Polyethylene Glycol (Miralax Powder Packet) 17 gm PO Q6 [facility] Stop: 06/18/19 05:59 Last Admin: 05/19/19 05:46 Dose: Not Given Documented by: [id number] Senna/Docusate Sodium (Senokot S) 2 tab PO HS [facility] Stop: 06/17/19 20:59 Last Admin: 05/18/19 22:09 Dose: 2 tab Documented by: [id number] Tolterodine Tartrate (Detrol La) 4 mg PO HS [facility] Stop: 06/17/19 20:59 Last Admin: 05/18/19 22:15 Dose: 4 mg Documented by: [id number] Tramadol HCl (Ultram) 50 - 100 mg PO Q4H PRN PRN Reason: Moderate-Severe Pain & Pre PT Stop: 06/17/19 13:11 Last Admin: 05/19/19 00:28 Dose: 100 mg Documented by: [id number] Valsartan (Diovan) 40 mg PO HS [facility] Stop: 06/17/19 20:59 Last Admin: 05/18/19 22:09 Dose: 40 mg Documented by: [id number] Varenicline (Chantix) 1 mg PO BID [facility] Stop: 06/17/19 20:59 Last Admin: 05/19/19 09:02 Dose: 1 mg Documented by: [id number] Admin: 05/18/19 22:16 Dose: 1 mg Documented by: [id number] Discontinued Medications Acetaminophen (Tylenol) 1,000 mg PO PREOP [facility] Stop: 05/18/19 18:00 Last Admin: 05/18/19 08:43 Dose: 1,000 mg Documented by: [id number] Bacitracin (Bacitracin) Confirm Administered Dose 50,000 units .ROUTE .STK-MED ONE Stop: 05/18/19 10:07 Last Admin: 05/18/19 11:38 Dose: 50,000 units Documented by: [id number] Bupivacaine HCl/Epinephrine Bitart (Sensorcaine/Epinephrine 0.5% Mpf 1:200,000) Confirm Administered Dose 30 ml .ROUTE .STK-MED ONE Stop: 05/18/19 10:07 Last Admin: 05/18/19 11:05 Dose: 20 ml Documented by: [id number] Celecoxib (Celebrex) 200 mg PO PREOP [facility]I Stop: 05/18/19 18:00 Last Admin: 05/18/19 08:43 Dose: 200 mg Documented by: [id number] Dextrose (Dextrose 50%) 25 ml IV NOW STA Stop: 05/19/19 00:52 Last Admin: 05/19/19 00:57 Dose: 25 ml Documented by: [id number] Gabapentin (Neurontin) 300 mg PO PREOP [facility] Stop: 05/18/19 18:00 Last Admin: 05/18/19 08:43 Dose: 300 mg Documented by: [id number] Hydromorphone HCl (Dilaudid) 0.25 mg IV Q5M PRN PRN Reason: PACU Use Only-Pain Stop: 05/18/19 17:57 Last Admin: 05/18/19 12:27 Dose: 0.25 mg Documented by: [id number] Admin: 05/18/19 12:22 Dose: 0.25 mg Documented by: [id number] Admin: 05/18/19 12:17 Dose: 0.25 mg Documented by: [id number] Admin: 05/18/19 12:12 Dose: 0.25 mg Documented by: [id number] Cefazolin Sodium (Ancef 2000mg) 2,000 mg in 15 mls @ 3.75 mls/min IV PREOP MONI; Protocol Stop: 05/18/19 18:00 Last Admin: 05/18/19 10:08 Dose: 3.75 mls/min Documented by: [id number] Lactated Ringer's (Lr) 1,000 mls @ 15 mls/hr IV .Q24H [facility] Stop: 05/19/19 05:59 Last Infusion: 05/18/19 09:00 Dose: 0 mls/hr Documented by: [id number] Admin: 05/18/19 08:35 Dose: 15 mls/hr Documented by: [id number] Cefazolin Sodium (Ancef 2000mg) 2,000 mg in 15 mls @ 3.75 mls/min IV Q8H MONI; Protocol Stop: 05/19/19 02:03 Last Admin: 05/19/19 02:07 Dose: 3.75 mls/min Documented by: [id number] Admin: 05/18/19 19:12 Dose: 3.75 mls/min Documented by: [id number] Acetaminophen (Ofirmev) 1,000 mg in 100 mls @ 400 mls/hr IV NOW STA Stop: 05/19/19 09:26 Last Infusion: 05/19/19 09:27 Dose: 0 mls/hr Documented by: [id number] Admin: 05/19/19 09:20 Dose: 400 mls/hr Documented by: [id number] Miscellaneous (Floseal Hemostatic Matrix 10ml) 10 ml TOP ONCE ONE Stop: 05/18/19 10:40 Last Admin: 05/18/19 11:38 Dose: 10 ml Documented by: [id number]
[2019-05-19] MEDS ORDERED: PHARMACY GLYCEMIC MGMT CONSULT PRN (09:31)
[2019-05-19 10:05] LABS: Basophils # (auto) 0.03 K/uL (0-0.2); Basophils % (auto) 0.2 %; Eosinophils # (auto) 0.04 K/uL (0-0.5); Eosinophils % (auto) 0.2 %; Hematocrit (blood only) 36.3 % (42-52); Hemoglobin 11.6 g/dL (14.0-18.0); Immature Granulocytes # (auto) 0.07 K/uL (0.00-0.02); Immature Granulocytes % (auto) 0.4 %; Lymphocytes # (auto) 2.39 K/uL (1.2-3.4); Lymphocytes % (auto) 13.5 %; Mean Corpuscular Hemoglobin 31.4 pg (25-34); Mean Corpuscular Volume 98.1 fL (80-100); Mean Platelet Volume 9.3 fL (7.4-10.4); Monocytes # (auto) 1.95 K/uL (0.11-0.59); Neutrophils # (auto) 13.25 K/uL (1.4-6.5); Neutrophils % (auto) 74.7 %; Platelet Count 288 K/uL (130-400); RDW Coefficient of Variation 13.5 % (11.5-14.5); RDW Standard Deviation 48.1 fL (36.4-46.3); White Blood Count 17.73 K/uL (4.8-10.8)
--- NOTE | 2019-05-19 10:06 | Anesthesiology Progress Note ---
Date of Service May 19, 2019 Anesthesia Post Procedure Vital Signs Vital Signs: Temp Pulse Pulse Pulse Resp BP Pulse Ox 05/19/19 09:05 37.5 C 91 05/19/19 07:14 37.9 C H 98 H 20 130/66 93 05/19/19 06:22 91 05/19/19 06:20 82 L 05/19/19 03:54 92 H 18 90 05/19/19 03:46 36.5 C 86 18 149/75 H 94 05/18/19 23:33 37.0 C 80 20 149/58 H 90 05/18/19 22:56 76 16 96 05/18/19 19:04 36.6 C 88 16 177/72 H 91 05/18/19 16:11 36.4 C L 82 16 158/75 H 92 05/18/19 15:09 36.3 C L 87 16 178/65 H 97 05/18/19 14:09 87 18 162/64 H 96 05/18/19 13:38 84 15 143/63 H 95 05/18/19 13:17 36.4 C L 78 16 141/64 H 94 05/18/19 12:45 36.4 C L 78 12 129/66 95 05/18/19 12:35 36.4 C L 84 12 142/63 H 98 05/18/19 12:25 86 12 129/86 98 05/18/19 12:15 83 12 156/60 H 98 05/18/19 12:05 84 13 155/68 H 99 05/18/19 11:58 36.0 C L 85 18 180/93 H 99 Pain Intensity Right Lower Back: Pain Intensity: 4 Lower Back: Pain Intensity: 4 Notes Mental Status: see notes below Pain: see Notes below Airway Patency, RR, SpO2: see Notes below Notes: Attempted to do evaluation, patient only mildly responsive on CPAP. Sat probe placed and finger, reading 79% on 4L CPAP. Pt rousing with sternal rub, but back to sleep immediately. Nurse made aware. Dr. Mortensen called and at bedside. Narcan administered by nurse, with immediate results of patient opening eyes and sats up into 90's. Patient in stable condition at this time.
--- NOTE | 2019-05-19 10:10 | Hospitalist Progress Note ---
Date of Service May 19, 2019 Assessment & Plan Admission and Anticipated Discharge Date Admission Date: May 18, 2019 Subjective ATTENDING ADDENDUM : pt noted be very lethergic and hypoxic ordred for Narcane as has recieved combination of pain meds this AM for back pain pt woke up briefly remains hypoxic with requiring 3-4 L 02 via nasal canula remains unresponsive Cxray shows pulm vascular congestion lab reveals worsening of renal function cr elevated 1.9 with hyperkalemia Nephrology consulted Lasix 80 mg IV ordered pt developed acute renal failure with ATN /anuria no urine out put noted in [place] after IV Lasix repeat labs contineus to worsen pt remains lethergic due to metabolic encephalopathh with uremia D/w Neprho pt will need emegent dialysi due to vol over load causing hypoxemic resp failure /uremia , worsening of hyperkalemia , no improvement with Lasix , insuin , dextose PO kaeyxalate not given as pt was too lathergic to take PO Critical care team consulted for dilasyis catheter placemement Rt IJ temprorary catheter placed emegent HD with low K bath per nephrology LOW GRADE FEVER : no evidence of sepsis leukopcytosis noted , received IV steroids post procedure blood culture ordered Empiric ABX Van /Zosyn as pt had recent spinal surgery pro calcintoning and lactic acid negative ACUTE CHF WITH DIASTOLIC DYSFUNCITON/HFpEF vol over load due to ATN , ,with aneuria no urine out put with JOHN lasix geting emergent HD ACUTE RENAL FAILURE ON CKD STAGE 3 : no urine out put with IV fluids /ATN ? emergent HD per Nephrilogy follow BMP Acute hypoxemic resp failure : due to vol over load cont bipap Dialysis for vol and uremia management CONFUSION /LETHERGY /ALTERED MENTAL STATUS : metabolic encephalopahty due to uremia /hypoxemia emergent dialysis for vol manamement , uremia cont bipap FULL CODE pt's updated over phone DISPOSITION: pts status updated to Primary service spinal Ortho Dr Garcia discussed pts acute change of status given multiple for acute medical issues , pt will be transferred to Hospitalist service per Spine Ortho -there is no post op complication from Lumber decompression surgery Katlin Mortensen MD Results & Data ([facility]) Vital Signs (Past 12 Hours) Vital Signs Temp Pulse Pulse Resp BP Pulse Ox 05/19/19 09:05 37.5 C 91 05/19/19 07:14 37.9 C H 98 H 20 130/66 93 05/19/19 06:22 91 05/19/19 06:20 82 L 05/19/19 03:54 92 H 18 90 05/19/19 03:46 36.5 C 86 18 149/75 H 94 05/18/19 23:33 37.0 C 80 20 149/58 H 90 05/18/19 22:56 76 16 96
--- NOTE | 2019-05-19 10:10 | XRay Report ---
XR chest 1V portable HISTORY: hypoxia COMPARISON: Chest 05/29/2012. FINDINGS: The heart is mildly enlarged. Mild diffuse interstitial and vascular thickening consistent with pulmonary edema. No pneumothorax. No pleural effusions. No new focal lung consolidations to sugg est pneumonia. IMPRESSION: Mild clinically and mild interstitial pulmonary edema. ACT 112: Negative or not required by law. Electronically signed by: Ed Rodríguez M.D. 05/19/2019 10:08 AM
[2019-05-19] MEDS ORDERED: NALOXONE HCL 0.4 MG/1 ML VIAL/CARP IV STA (10:12)
[2019-05-19 10:21] LABS: Base Excess ABG -1.3 mEq/L (-9-1.8); HCO3 ABG 26 mmol/L (19-24); PCO2 ABG 52 mmHg (35-46); PO2 ABG 46 mmHg (80-95); pH ABG 7.31 (7.35-7.45)
--- NOTE | 2019-05-19 10:23 | Pharmacy Report ---
Glycemic Control Consultation - Date of Service May 19, 2019 - Scope Scope: Glycemic Pharmacist consulted for glycemic control and to write orders per formerly [facility] inpatient glycemic control protocol. - Objective Weight: 96.116 kg Accuchecks BSG (last 24hrs): 05/18/19 05/18/19 05/18/19 12:01 13:38 17:08 Glucose POC Glucose 166 H 128 H 141 H 05/18/19 05/18/19 05/19/19 20:35 23:52 00:08 Glucose POC Glucose 161 H 41 L* 49 L* 05/19/19 05/19/19 05/19/19 00:22 00:37 01:10 Glucose POC Glucose 61 L* 61 L* 125 H 05/19/19 05/19/19 05/19/19 05:42 05:51 07:19 Glucose 140 H POC Glucose 132 H 153 H 05/19/19 08:09 Glucose POC Glucose 142 H Laboratory Data (last 24hrs): 05/19/19 05:42 Potassium 5.3 H Carbon Dioxide 28 Anion Gap 5.0 Creatinine 1.53 H Est Cr Clr Drug Dosing 51.6 HbA1c: Hemoglobin A1c 8.3 % (4.5-5.6) H 05/07/19 10:58 - Recent Pertinent Medications Outpatient Anti-diabetic Regimen: * Basaglar 64 units SQ AM * Metformin 1000 mg PO BIDM * Januvia 100 mg PO Daily * A1c = 8.3% on 05/07/2019 The patient is currently receiving: * Basal insulin: Lantus 0-30 units BID * Lantus 0 units for BSG < 110 mg/dL * Lantus 16 units for BSG 110 - 180 mg/dL * Lantus 30 units for BSG > 180 mg/dL * Correctional Insulin: Novolog Correction per scale ACHS Goal Range: Low 120 mg/dL - High 160 mg/dL Correction Factor: 15 mg/dL/unit * Prandial insulin: Per carb ratio of 1 unit per 4 grams CHO consumed * Oral Agents: on hold Risk Factors for Insulin Resistance: * Steroids: * No steroids received pre- or post-op * IVF: * D5LR @ KVO pre-op, now on NSS @ 100 cc/hr * Recent Surgery: * POD #1 s/p L4-S1 lumbar decompression and fusion * Diet: * T2DM - Assessment & Plan Assessment & Plan: ASSESSMENT: * 73 yo M who is POD #1 s/p L4-S1 lumbar decompression and fusion * Patient took 50% of home dose (Basaglar 32 units) prior to surgery on 05/17 AM * Patient was hypoglycemic (BSG 54 mg/dL) pre-op which may be indicative of too large a basal dose as an outpatient * BSGs were well controlled post-op and patient did not received pre- or post-op steroids * Patient was started on CF 15, CR 4 based on estimation of current basal needs and stress of 3 * Received 18 units novolog last evening with meal which ultimately resulted in symptomatic hypoglycemic event * Hypoglycemia was treated appropriately with 16 oz orange juice and 25 mL D50, BSG improved from 41 mg/dL --> 125 mg/dL * Patient received a total of 66 units insulin yesterday, 48 units basal * Fasting BSG 142 mg/dL this AM * Novolog parameters will need loosened for today, may need to tighten in future but not appropriate for now given hypoglycemic event PLAN FOR INPATIENT GLYCEMIC CONTROL: * Pt is maintained on oral antidiabetic agents as an outpatient * Oral agents are not recommended for inpatient use d/t drug interactions, changing PO intake, and difficulty titrating for acute hyper/hypoglycemia. ADA recommends re-initiating outpatient oral agents 1-2 days prior to discharge if/when appropriate if they were held on admission. * Will hold oral agents for admission and utilize SQ basal bolus insulin regimen which is the recommended regimen for inpatient glycemic control. * Will initiate weight based insulin dosing for insulin joann patient and titrate based on BSG trends. * ADA & AACE recommend a goal blood sugar range 140-180 mg/dl for the majority of critically ill & non-critically ill patients. However, more stringent targets may be selected in individual cases. Will utilize more stringent goal of 120 - 160 mg/dl based on patient age & comorbidities. Additionally, tighter glycemic control is warranted to facilitate wound/infection healing. * Basal insulin * Lantus 16 units this AM + 6 units with Lunch (total = 22 units) * Lantus 18-26 units PM depending on BSG * Bolus insulin * NovoLog per scale ACHS or Q6hrs while NPO * Goal Range: Low 120 mg/dL - High 160 mg/dL * LOOSENED: Correction Factor: 25 mg/dL/unit * LOOSENED: Nutritional / Prandial insulin per carb ratio of 1 unit per 8 grams CHO consumed * Please note that the plan above was derived based on current level of insulin resistance and hospital stress. These recommendations are appropriate for inpatient admission only. Plan of care upon discharge will need to be reassessed to avoid potential outpatient hypo/hyperglycemia. Thank you.
[2019-05-19 10:27] LABS: Allen Test Pos (Pos)
[2019-05-19 10:31] LABS: Albumin Globulin Ratio 0.8 (0.9-2); Albumin Level 2.8 gm/dl (3.4-5.0); Bilirubin,Total 0.3 mg/dl (0.2-1); Calcium 8.2 mg/dl (8.5-10.1); Creatinine Clr Calc Pharmacy 42.7 ml/min; Est GFR (African American) 41.2; Est GFR (Non-African American) 35.6; Globulin 3.5 gm/dl (2.5-4.0); Potassium 6.6 mmol/L (3.5-5.1); Total Protein 6.3 gm/dl (6.4-8.2)
--- NOTE | 2019-05-19 10:36 | Orthopedic Progress Note ---
Date of Service May 19, 2019 Assessment & Plan (1) Neurogenic claudication due to lumbar spinal stenosis: At this time he is being transferred to the PCU. We will advance therapy once he is able to tolerate it. Present on Admission?: Yes Admission and Anticipated Discharge Date Admission Date: May 18, 2019 Subjective Patient complaining mostly of back pain and some calf tenderness. Physical Exam Physical Exam: On exam he is sitting up in bed. He is alert and oriented. He is answering questions appropriately. He demonstrates excellent strength detailed testing to the lower extremities. Results & Data ([facility]) Vital Signs (Past 12 Hours) Vital Signs Temp Pulse Pulse Resp BP Pulse Ox 05/19/19 09:05 37.5 C 91 05/19/19 07:14 37.9 C H 98 H 20 130/66 93 05/19/19 06:22 91 05/19/19 06:20 82 L 05/19/19 03:54 92 H 18 90 05/19/19 03:46 36.5 C 86 18 149/75 H 94 05/18/19 23:33 37.0 C 80 20 149/58 H 90 05/18/19 22:56 76 16 96
[2019-05-19] MEDS ORDERED: PIPERACILL/TAZOBAC CONSULT ACTIVE PRN (10:39)
[2019-05-19] MEDS ORDERED: VANCOMYCIN CONSULT ACTIVE PRN (10:39)
[2019-05-19] MEDS ORDERED: FUROSEMIDE 20 MG in SYRINGE 0 ML IV ONE (10:45)
[2019-05-19] MEDS ORDERED: VANCOMYCIN HCL 2,250 MG in SODIUM CHLORIDE 0.9% 500 ML IV ONE (11:15)
[2019-05-19] MEDS ORDERED: PIPERACILLIN/TAZOBACTAM 4.5 GM in DEXTROSE 5% 100 ML IV ONE (11:15)
[2019-05-19] MEDS ORDERED: PERFLUTREN LIPID MICROSPHERE (DEFINITY) IV ONE (11:27)
[2019-05-19] MEDS ORDERED: INSULIN GLARGINE SOLOSTAR 100 UNITS/ML 3 ML PEN SC STA (12:02)
[2019-05-19 12:14] LABS: BUN Creatinine Ratio 13.2 (10-20); Calcium 8.2 mg/dl (8.5-10.1); Creatinine Clr Calc Pharmacy 40.7 ml/min; Est GFR (African American) 38.9; Est GFR (Non-African American) 33.6; Potassium 6.5 mmol/L (3.5-5.1)
[2019-05-19] MEDS ORDERED: SODIUM POLYSTYRENE SULFONATE 15G/60ML SUSP PO STA (12:39)
[2019-05-19] MEDS ORDERED: FUROSEMIDE 80 MG in SYRINGE 0 ML IV ONE (12:45)
[2019-05-19] MEDS ORDERED: DEXTROSE 50% 50 ML SYRINGE IV ONE (12:45)
[2019-05-19] MEDS ORDERED: SODIUM CHLORIDE 0.9% 1000ML 1,000 ML IV SCH (12:45)
[2019-05-19] MEDS ORDERED: INSULIN HUMAN REGULAR PER UNIT 10 UNITS in SYRINGE 9.9 ML IV ONE (12:45)
--- NOTE | 2019-05-19 14:08 | Pharmacy Report ---
Pharmacy Abx Initial Consult - Date of Service May 19, 2019 - Pharmacy Dosing Scope Date of Consult: 05/19/19 Consultation requested by: Andreina Chopra PA-C Pharmacy is consulted to initiate vancomycin and Zosyn IV dosing therapy, order appropriate labs and adjust drug dose/frequency. - Subjective The patient is a 73 year old M admitted on 05/18/19 12:09. - Objective Height: 5 ft 11 in Weight: 96.116 kg Vital Signs (Past 12hrs): Vital Signs Temp Pulse Pulse Resp BP Pulse Ox 05/19/19 12:03 88 05/19/19 11:57 36.6 C 88 16 135/63 90 05/19/19 11:00 36.9 C 84 16 128/68 93 05/19/19 09:05 37.5 C 91 05/19/19 07:14 37.9 C H 98 H 20 130/66 93 05/19/19 06:22 91 05/19/19 06:20 82 L 05/19/19 03:54 92 H 18 90 05/19/19 03:46 36.5 C 86 18 149/75 H 94 Lab Results (24hrs): Laboratory Tests (24 Hours) 05/19/19 05/19/19 05/19/19 11:44 09:53 09:53 WBC 17.73 H Neut # (Auto) 13.25 H Creatinine 1.94 H 1.85 H D Est Cr Clr Drug Dosing 40.7 42.7 Procalcitonin 05/19/19 05/19/19 05/19/19 09:36 09:36 05:42 WBC Neut # (Auto) Creatinine Cancelled 1.53 H Est Cr Clr Drug Dosing Cancelled 51.6 Procalcitonin < 0.05 05/19/19 05:42 WBC 16.47 H Neut # (Auto) 12.65 H Creatinine Est Cr Clr Drug Dosing Procalcitonin Micro Results: 05/19/19 09:26 Aerobic Blood Culture - Pending Blood Anaerobic Blood Culture - Pending 05/19/19 09:21 Aerobic Blood Culture - Pending Blood Anaerobic Blood Culture - Pending - Assessment & Plan Assessment 73 year old M POD #1 s/p L5-S1 decompression and fusion now ordered empiric vancomycin and Zosyn for possible sepsis. Significant PMH includes type 2 diabetes, COPD, and CKD stage 3. Blood cultures x 2 pending. JAVED noted - current SCr is 1.94 mg/dL up from 1.5 mg/dL on 05/07/19. Low grade fever this morning of 37.9 C. Procalcitonin < 0.05 ng/mL, lactate: 1.3 mmol/L. Broad spectrum antibiotics appropriate at this time. Plan Vancomycin IV * Estimated PK Parameters: Vd 0.7 L/kg, Pierce 0.038 hr-1, t1/2 18 hr * Loading dose: 2250 mg (23 mg/kg) * Maintenance dose: 1250 mg IV (13 mg/kg) every 24 hours * Goal trough level for sepsis : 15 to 20 mcg/mL * Will assess AM renal function and adjust dosing interval as necessary. Will hold off on ordering trough until AM labs can be reviewed. Piperacillin/tazobactam * 4.5 g bolus administered over 30 minutes, then 3.375 g IV extended infusion every 8 hours for CrCl greater than 20 mL/min Pharmacy will continue to follow and will adjust dose/frequency as necessary. Thank you.
[2019-05-19 15:46] LABS: HCO3 ABG 25 mmol/L (19-24); Oxygen Saturation ABG 98.5 % (90-95); PCO2 ABG 59 mmHg (35-46); PO2 ABG 134 mmHg (80-95); pH ABG 7.24 (7.35-7.45)
[2019-05-19 15:47] LABS: Allen Test POS (Pos)
[2019-05-19 16:00] LABS: BUN Creatinine Ratio 12.8 (10-20); Creatinine Clr Calc Pharmacy 35.7 ml/min; Est GFR (African American) 33.3; Est GFR (Non-African American) 28.7
[2019-05-19] MEDS: PIPERACILLIN/TAZOBACTAM 3.375 GM in DEXTROSE 5% 100 ML IV SCH ×2 (16:39→23:50)
--- NOTE | 2019-05-19 16:40 | Procedure Note ---
Procedure Note Date of Service May 19, 2019 CENTRAL LINE PROCEDURE NOTE: Procedure: Central Line Placement Provider: Wilberto Thao MD Indication: HD line for dialysis access Anesthesia: 5 mL's lidocaine 1% Site: Right internal jugular Consent was signed and placed on the chart prior to procedure. Consent was obtained via phone from the patient's and verified A time-out was completed verifying correct patient, procedure, site, positioning, and implants(s) or special equipment if applicable. Patients right neck was cleansed and draped in the typical sterile fashion using Chloraprep. The Internal Jugular Vein and Carotid Artery were identified using ultrasound. The superficial tissue was anesthetized using 5 mL's of 1% lidocaine without epinephrine under direct visualization with the ultrasound. After adequate anesthetization was achieved, the Internal Jugular vein was cannulated under direct ultrasound guidance using an introducer needle on a syringe. Good venous blood return was maintained prior to removal of syringe from introducer needle. Using Seldinger Technique, a guide wire was advanced through the introducer needle without resistance. The introducer needle was removed and ultrasound images were obtained of the guide wire within the Internal Jugular Vein and saved to the patients medical record. A small incision was made in penetrating fashion at the guide wire insertion site utilizing an 11 blade scalpel. The serial dilators was advanced to the vessel without resistance. The dilator was e xchanged for the 12 Ukrainian 13 cm temporary hemodialysis catheter which was advanced into the vessel without resistance. The guide wire was removed intact from the catheter without issue. Claves were placed on each catheter tip with confirmation of good blood flow from each lumen. Each port was easily flushed with sterile saline. The catheter was sutured in place. Antibiotic impregnated gauze was applied to the catheter and a sterile dressing was applied over the catheter with careful attention to sterility. Patient tolerated procedure well. No immediate complications were met. Post procedure x-ray was completed, placement was appropriate and no pneumothorax was noted. Images obtained are saved for permanent record Procedural Ultrasound Guidance: Procedure Date: 05/19/2019 Indication: Vascular axis Proceduralist: Wilberto Thao MD Artery AND Vein visualized: x Compressible Vein: x Line confirmed in Vein with ultrasound: x Images obtained are saved for permanent record. Coding CPT Codes Tubes, Drains, and Vasc Access - Tubes, Drains, and Vasc Access: [id number] Insertion of cannula for hemodialysis ([id number]) [facility] [place] Procedure Codes (Charges) Tubes, Drains, and Vasc Access Procedure 1: Tubes, Drains, and Vasc Access: [id number] Insertion of cannula for hemodialysis
--- NOTE | 2019-05-19 16:47 | Critical Care Consultation ---
Date of Consultation May 19, 2019 Assessment & Plan (1) Acute on chronic renal failure: Most likely due to ATN Nephrology is consulted and following and has asked us to place a temporary di alysis catheter Patient's labs were reviewed. INR, platelets are appropriate for pursuing the procedure Dr. Spencer to place dialysis line at bedside Consent was obtained by the patient's Geno over the phone as we are not permitting visitors at this time due to Covid19 policy expressed concern about pulmonary edema. Requested pulmonary consult with Dr. Can. Advised patient's that Dr. Can is not on-call this week and that Dr. Thao is doing the procedure. We anticipate the pulmonary fluid overload to improve with ultrafiltration with dialysis Also discussed with Dr. Mortensen. In the event that the patient does not improve her respiratory standpoint, Dr. Mortensen will consider pulmonary consult but will hold at this time. Thank you very much for including us in this procedure. Critical care will sign off at this time. Please call us when it is time to remove the catheter and we will gladly do so. Supervising Physician Co-Signing Physician Notes Patient seen and examined. Discussed with TODD metz and with the admitting hospitalist service. Consent for catheter was obtained via telephone from the patient's spouse. Agree with assessment and plan as noted by TODD metz. Pulmonary critical care will sign off at this point time after the line is been placed. Feel free to contact us if we can be of additional assistance History of Present Illness Attending Physician: Wilberto Garcia, History of Present Illness Attending: Dr. Thao This is a 73-year-old male that has a history of chronic kidney disease stage III, hypertension, CAD, obstructive sleep apnea, neurogenic claudication due to lumbar spinal stenosis, COPD, diabetes mellitus type 2. Patient underwent lumbar fusion by Dr. Garcia yesterday. Today he was found to be in acute renal failure suspect to be ATN. The critical care team was consulted to evaluate for a temporary dialysis catheter. Patient was obtunded and could not give permission. Patient's Geno was contacted and telephoned with consent was obtained by Dr. Thao prior to the procedure. Patient was not able to give any review of systems. And was also not able to give any past medical history. Review of the chart was completed. Patient is on clopidogrel at home daily. His last dose was last Saturday as reported by the . Patient is on aspirin 81 mg p.o. daily. This is been continued during his hospital stay. The patient is not on any other anticoagulation. Platelet count is 288. There are no other relative contraindications for the procedure. Dr. Thao will proceed with the procedure. Allergies Allergy/AdvReac Type Severity Reaction Status Date / Time adhesive Allergy Unknown ADHESIVE Verified 05/18/19 08:14 TAPE: REDNESS AND BLISTERS Home Medications Home Medications Medication Instructions Recorded Confirmed Type albuterol sulfate 90 mcg/actuation 2 puffs INH Q6H PRN #8.5 gm 12/23/18 05/18/19 Rx aerosol inhaler aspirin 81 mg tablet,delayed 81 mg PO DAILY 12/23/18 05/18/19 History release atorvastatin 20 mg tablet 20 mg PO QAM 12/23/18 05/18/19 History citalopram 40 mg tablet 60 mg PO QAM 12/23/18 05/18/19 History clopidogrel 75 mg tablet 75 mg PO QAM 12/23/18 05/18/19 History insulin glargine 100 unit/mL (3 64 units SQ QAM ml 12/23/18 05/18/19 History mL) subcutaneous pen magnesium oxide 200 mg PO BID tab 12/23/18 05/18/19 History metformin 1,000 mg tablet 1,000 mg PO BID 12/23/18 05/18/19 History nitroglycerin 0.4 mg sublingual 0.4 mg SL Q5M PRN 12/23/18 05/18/19 History tablet pantoprazole 40 mg tablet,delayed 40 mg PO QAM 12/23/18 05/18/19 History release sitagliptin 100 mg tablet 100 mg PO QAM 12/23/18 05/18/19 History tolterodine 4 mg capsule,extended 4 mg PO HS 12/23/18 05/18/19 History release 24 hr valsartan 40 mg tablet 40 mg PO HS tab 12/23/18 05/18/19 History varenicline 1 mg tablet 1 mg PO BID #60 tab 04/10/19 05/18/19 Rx CPAP Machine #1 ea 04/22/19 Rx miscellaneous medical supply #1 ea 04/22/19 Rx gabapentin [Neurontin] 600 mg PO TID 04/30/19 05/18/19 History Patient History Medical History Arthritis CAD (coronary artery disease) angioplasty/KARRIE to pRCA (2014) Carotid arterial disease "mild plaquing but no ICA stenosis.. severe left ECA stenosis" per cardiology office visit note 03/2019 Cataract CKD (chronic kidney disease), stage III COPD (chronic obstructive pulmonary disease) stable Diabetes IDDM GERD (gastroesophageal reflux disease) controlled Hyperlipidemia Hypertension Lung nodule R Peripheral arterial occlusive disease "total occlusion of the SFA and the left mid thigh area with reconstitution with collaterals and monophasic flow bilateral below knee area" per cardiology office visit note 03/2019 Sleep apnea prescribed CPAP (has not arrived yet as of 05/07/19 PAT visit) Spinal stenosis Urinary problem urinary hesitancy Surgical History History of arthroscopy of right shoulder History of cardiac cath stent x1 (2014) History of colonoscopy History of hernia surgery X2 History of repair of left rotator cuff History of thumb surgery BILAT History of tonsillectomy Family History Mother Diabetes Heart disease Father Cancer Social History Preferred Language: Gibraltarian Communication Ability: Effective [employer] Operator Required: No Beliefs That Will Affect Care: Restorationist Restorationist Beliefs: MORAVIAN Current Living Situation: Spouse Other Information That Helps Us Care for You: No Feels Safe at Home: Yes Smoking Status: Current every day smoker Tobacco Type: cigarettes ; Cigarettes Per Day: 1/2-1ppd, currently TAPERING (INTERMITTENT TOBACCO USE X 50+ YEARS) ; Do You Dip or Chew Tobacco: No ; Tobacco Cessation Education Requested by Patient: No (STONE CURRENT) Hx Alcohol Use: Yes Alcohol Intake Frequency: Rarely Hx Substance Use: No Childhood Exposure to Second-Hand Smoke: Yes Review of Systems Review of Systems: All systems reviewed & are unremarkable except as noted in HPI & below Physical Exam Physical Exam: GENERAL : No acute distress EYES: No icterus, gaze conjugate NOSE: No evidence of epistaxis MOUTH: No lesions or candidiasis NECK: Supple LUNGS: Patient has coarse rales throughout. No appreciated bronchospasm. Good breath sounds at the bases. Patient currently on BiPAP 10/10, FiO2 30% HEART: Regular, rate controlled ABDOMEN: Soft, NT, ND, BS Present EXTREMITIES: No LE edema, pedal pulses intact NEURO: Patient unresponsive and currently on BiPAP. Results & Data ([facility]) Vital Signs (Past 12 Hours) Vital Signs Temp Pulse Pulse Resp BP Pulse Ox 05/19/19 15:28 82 26 H 94 05/19/19 15:11 80 05/19/19 14:50 36.5 C 83 22 118/64 92 05/19/19 12:03 88 05/19/19 11:57 36.6 C 88 16 135/63 90 05/19/19 11:00 36.9 C 84 16 128/68 93 05/19/19 09:05 37.5 C 91 05/19/19 07:14 37.9 C H 98 H 20 130/66 93 05/19/19 06:22 91 05/19/19 06:20 82 L Laboratory Results 05/19/19 09:53 05/19/19 15:34 INR 1.0 (0.9-1.1) 05/07/19 10:58 Diagnostic Findings XR chest 1V portable HISTORY: hypoxia COMPARISON: Chest 05/29/2012. FINDINGS: The heart is mildly enlarged. Mild diffuse interstitial and vascular thickening consistent with pulmonary edema. No pneumothorax. No pleural effusions. No new focal lung consolidations to suggest pneumonia. IMPRESSION: Mild clinically and mild interstitial pulmonary edema. ACT 112: Negative or not required by law. Electronically signed by: Ed Rodríguez M.D. 05/19/2019 10:08 AM Coding Level of Care Code 32495 Inpt Consult Level 4 Diagnoses Acute on chronic renal failure N17.9; N18.9 Time Spent (min) 40 Comment 40 minutes in chart review, discussion with Dr. Morgan, discussion with at home, discussion with nephrology. This time is independent of any procedures.
--- NOTE | 2019-05-19 16:48 | XRay Report ---
XR chest 1V portable HISTORY: 73 years-old Male S/P right IJ dialysis catheter status post placement of a right IJ hemodi alysis catheter COMPARISON: Chest radiograph 05/19/2019 at 9:50 AM TECHNIQUE: Portable AP view the chest FINDINGS: Cardiac silhouette is enlarged. Persistent pulmonary vascular congestion. No pneumothorax or large pl eural effusion. The lateral right lung base is excluded from the [id number]. Status post placement of a right IJ hemodialysis catheter, distal tip terminating within the expected location of the brac hiocephalic SVC confluence. There is a subtle line projecting over the right lung apex with probable lung parenchyma interposed between the adjacent rib. No large pneumothorax. Mild left greater then ri ght bibasilar opacities. Degenerative changes of the spine. IMPRESSION: 1. Cardiomegaly with pulmonary vascular congestion. 2. Status post placement of a right IJ hemodialysis catheter, distal tip terminating in the expected location of the brachiocephalic SVC confluence. 3. Subtle line projects over the right lung apex suggestive of probable skinfold however as a precaut ionary measure follow-up inspiratory and expiratory films are recommended to exclude a tiny pneumotho rax. 4. Left lung base opacities suggest atelectasis or pneumonia. ACT 112: Negative or not required by law. The above report was generated using voice recognition software. It may contain grammatical, syntax o r spelling errors. Electronically signed by: Surya Healy M.D. 05/19/2019 4:47 PM
[2019-05-19] MEDS ORDERED: SODIUM CHLORIDE 0.9% 1000ML 1,000 ML IV PRN (16:54)
--- NOTE | 2019-05-19 17:33 | Nephrology Consultation ---
Date of Consultation May 19, 2019 Assessment & Plan (1) Acute on chronic renal failure: Patient with acute renal failure likely due to ischemic ATN in setting of lumbar fusion and postoperative NSAID use. Baseline creatinine of 1.5. Creatinine now up to 2.2 and patient is anuric. Due to hyperkalemia and somnolence, will do urgent dialysis today for 2 hours on a 1K bath and target UF of 1 L. Will reassess dialysis need tomorrow. -Continue to monitor renal function with daily BMP. -Avoid nephrotoxins such as NSAIDs and contrast unless lifesaving -We will check a urine microscopy (2) Hyperkalemia: Due to acute renal failure. Patient has received several rounds of insulin dextrose. We will dialyze him on a 1K bath. We will monitor potassium 2 hours post dialysis. (3) Hypoxia: Due to pulmonary edema based on the chest x-ray. Will take off 1 L UF today. Continue BiPAP as needed (4) Status post lumbar surgery: Patient is postoperative day 1. Management per Dr. Garcia. Recommend morphine or oxycodone for pain control. Fentanyl and Dilaudid are acceptable to use in setting of acute renal failure. History of Present Illness Reason for Consultation: Acute kidney injury Requesting Physician: Wilberto Garcia DO Attending Physician: Wilberto Garcia DO History of Present Illness This is 74-year-old male with history of hypertension, obstructive sleep apnea on CPAP, COPD, coronary disease, type 2 diabetes, neurogenic claudication due to lumbar spinal stenosis and CKD stage III with baseline creatinine of 1.5 who was admitted on 05/18/2019 for lumbar fusion. He underwent lumbar decompression and fusion on 05/18/[address] Garcia. Patient did receive some celecoxib for pain control. Postoperatively patient has remained drowsy and was found to have hyperkalemia today of 6.6 which is improved to 6.5 after a round of medical therapy with insulin dextrose. His creatinine is also jumped to 2.2. I challenged him with IV Lasix 80 mg and patient did not make any urine. At the moment patient is drowsy but arousable. He is on BiPAP. I requested ICU to place a temporary dialysis catheter which has been successfully placed in the right IJ. I spoke with the patient and his Geno who are agreeable to u rgent dialysis to correct hyperkalemia. Chest x-ray also showing pulmonary edema. Allergies Allergy/AdvReac Type Severity Reaction Status Date / Time adhesive Allergy Unknown ADHESIVE Verified 05/18/19 08:14 TAPE: REDNESS AND BLISTERS Home Medications Home Medications Medication Instructions Recorded Confirmed Type albuterol sulfate 90 mcg/actuation 2 puffs INH Q6H PRN #8.5 gm 12/23/18 05/18/19 Rx aerosol inhaler aspirin 81 mg tablet,delayed 81 mg PO DAILY 12/23/18 05/18/19 History release atorvastatin 20 mg tablet 20 mg PO QAM 12/23/18 05/18/19 History citalopram 40 mg tablet 60 mg PO QAM 12/23/18 05/18/19 History clopidogrel 75 mg tablet 75 mg PO QAM 12/23/18 05/18/19 History insulin glargine 100 unit/mL (3 64 units SQ QAM ml 12/23/18 05/18/19 History mL) subcutaneous pen magnesium oxide 200 mg PO BID tab 12/23/18 05/18/19 History metformin 1,000 mg tablet 1,000 mg PO BID 12/23/18 05/18/19 History nitroglycerin 0.4 mg sublingual 0.4 mg SL Q5M PRN 12/23/18 05/18/19 History tablet pantoprazole 40 mg tablet,delayed 40 mg PO QAM 12/23/18 05/18/19 History release sitagliptin 100 mg tablet 100 mg PO QAM 12/23/18 05/18/19 History tolterodine 4 mg capsule,extended 4 mg PO HS 12/23/18 05/18/19 History release 24 hr valsartan 40 mg tablet 40 mg PO HS tab 12/23/18 05/18/19 History varenicline 1 mg tablet 1 mg PO BID #60 tab 04/10/19 05/18/19 Rx CPAP Machine #1 ea 04/22/19 Rx miscellaneous medical supply #1 ea 04/22/19 Rx gabapentin [Neurontin] 600 mg PO TID 04/30/19 05/18/19 History Patient History Medical History Arthritis CAD (coronary artery disease) angioplasty/[facility] to [facility] (2014) Carotid arterial disease "mild plaquing but no ICA stenosis.. severe left ECA stenosis" per cardiology office visit note 03/2019 Cataract CKD (chronic kidney disease), stage III COPD (chronic obstructive pulmonary disease) stable Diabetes IDDM GERD (gastroesophageal reflux disease) controlled Hyperlipidemia Hypertension Lung nodule R Peripheral arterial occlusive disease "total occlusion of the SFA and the left mid thigh area with reconstitution with collaterals and monophasic flow bilateral below knee area" per cardiology office visit note 03/2019 Sleep apnea prescribed CPAP (has not arrived yet as of 05/07/19 PAT visit) Spinal stenosis Urinary problem urinary hesitancy Surgical History History of arthroscopy of right shoulder History of cardiac cath stent x1 (2014) History of colonoscopy History of hernia surgery X2 History of repair of left rotator cuff History of thumb surgery BILAT History of tonsillectomy Family History Mother Diabetes Heart disease Father Cancer Social History Preferred Language: Thai Communication Ability: Effective Youth Advocate Required: No Beliefs That Will Affect Care: Taoist Taoist Beliefs: ADVENTISM Current Living Situation: Spouse Other Information That Helps Us Care for You: No Feels Safe at Home: Yes Smoking Status: Current every day smoker Tobacco Type: cigarettes ; Cigarettes Per Day: 1/2-1ppd, currently TAPERING (INTERMITTENT TOBACCO USE X 50+ YEARS) ; Do You Dip or Chew Tobacco: No ; Tobacco Cessation Education Requested by Patient: No (CHANTIChristian CURRENT) Hx Alcohol Use: Yes Alcohol Intake Frequency: Rarely Hx Substance Use: No Childhood Exposure to Second-Hand Smoke: Yes Review of Systems Review of Systems: Unobtainable due to reduced consciousness Physical Exam Physical Exam: General exam: Appears comfortable, no acute distress on BiPAP HEENT: Pupils are equal and reactive to light Neck: No JVD, neck is supple trachea is midline Respiratory system: Clear breath sounds bilaterally. Gastrointestinal: Abdomen is soft, non distended, non tender, bowel sounds are present CVS: Regular rate and rhythm. No murmurs, rubs or gallops Musculoskeletal: No joint or muscle tenderness Extremities: Non tender, no edema, peripheral pulses are present Neuro: Drowsy but answers yes to his name, no tremors, no focal neurological deficits Skin: No rashes Results & Data Vital Signs (Past 12 Hours) Vital Signs Temp Pulse Pulse Resp BP Pulse Ox 05/19/19 16:00 36.7 C 88 16 138/80 95 05/19/19 15:28 82 26 H 94 05/19/19 15:11 80 05/19/19 14:50 36.5 C 83 22 118/64 92 05/19/19 12:03 88 05/19/19 11:57 36.6 C 88 16 135/63 90 05/19/19 11:00 36.9 C 84 16 128/68 93 05/19/19 09:05 37.5 C 91 05/19/19 07:14 37.9 C H 98 H 20 130/66 93 05/19/19 06:22 91 05/19/19 06:20 82 L Laboratory Results 05/19/19 15:34 05/19/19 05/19/19 05/19/19 05:42 09:53 09:53 WBC 16.47 H 17.73 H RBC 3.73 L 3.70 L MCV 96.8 98.1 MCH 31.6 31.4 MCHC 32.7 32.0 RDW Std Deviation 47.4 H 48.1 H RDW Coeff of Jono 13.5 13.5 Plt Count 284 288 MPV 9.0 9.3 Albumin 2.8 L
--- NOTE | 2019-05-19 17:46 | Electrocardiogram Report ---
Test Reason : Blood Pressure : / mmHG Vent. Rate : 082 BPM Atrial Rate : 082 BPM P-R Int : 146 ms QRS Dur : 086 ms QT Int : 390 ms P-R-T Axes : 056 056 055 degrees QTc Int : 455 ms Normal sinus rhythm No previous ECGs available Confirmed by Carlo Hofmfan ([id number]) on 05/19/2019 5:45:49 PM Referred By: Wilberto Garcia Confirmed By:Ross Hoffman
[2019-05-19 18:29] LABS: BUN Creatinine Ratio 12.7 (10-20); Calcium 8.1 mg/dl (8.5-10.1); Creatinine Clr Calc Pharmacy 34.2 ml/min; Est GFR (African American) 31.5; Est GFR (Non-African American) 27.2; Potassium 6.6 mmol/L (3.5-5.1)
[2019-05-19 18:40] LABS: Hepatitis B Surface Ab Quant < 3.10 mIU/mL (>or=10mIU/mL Immune); Hepatitis B Surface Antibody Non-Immune
[2019-05-19 18:42] LABS: Hepatitis B Surface Antigen Neg (Neg)
[2019-05-19] MEDS ORDERED: MoRPHine SULFATE 2 MG/ML CARP IV STA (20:00)
[2019-05-19 23:01] LABS: BUN Creatinine Ratio 11.2 (10-20); Creatinine Clr Calc Pharmacy 38.4 ml/min; Est GFR (African American) 34.6; Est GFR (Non-African American) 29.8; Potassium 5.5 mmol/L (3.5-5.1)
[2019-05-20] MEDS ORDERED: MoRPHine SULFATE 2 MG/ML CARP IV STA ×2 (05:29→08:06)
[2019-05-20] MEDS ORDERED: VANCOMYCIN HCL 1,000 MG in SODIUM CHLORIDE 0.9% 250 ML IV SCH (06:00)
[2019-05-20] MEDS: INSULIN ASPART 100 UNITS/ML 3 ML PEN SC SCH ×3 (06:08→17:21)
[2019-05-20 06:11] LABS: Basophils # (auto) 0.01 K/uL (0-0.2); Basophils % (auto) 0.1 %; Eosinophils # (auto) 0.04 K/uL (0-0.5); Eosinophils % (auto) 0.2 %; Hematocrit (blood only) 34.9 % (42-52); Hemoglobin 11.1 g/dL (14.0-18.0); Immature Granulocytes # (auto) 0.05 K/uL (0.00-0.02); Immature Granulocytes % (auto) 0.3 %; Lymphocytes # (auto) 1.81 K/uL (1.2-3.4); Lymphocytes % (auto) 9.8 %; Mean Corpuscular Hemoglobin 31.2 pg (25-34); Mean Corpuscular Hgb Conc 31.8 g/dL (32-36); Mean Platelet Volume 9.2 fL (7.4-10.4); Monocytes # (auto) 1.62 K/uL (0.11-0.59); Monocytes % (auto) 8.8 %; Neutrophils # (auto) 14.96 K/uL (1.4-6.5); Neutrophils % (auto) 80.8 %; Platelet Count 240 K/uL (130-400); RDW Coefficient of Variation 13.5 % (11.5-14.5); RDW Standard Deviation 48.5 fL (36.4-46.3); Red Blood Count 3.56 M/uL (4.7-6.1); White Blood Count 18.49 K/uL (4.8-10.8)
[2019-05-20 06:52] LABS: Calcium 8.7 mg/dl (8.5-10.1); Creatinine Clr Calc Pharmacy 40.5 ml/min; Est GFR (Non-African American) 32.8; Potassium 4.8 mmol/L (3.5-5.1)
[2019-05-20] MEDS: PIPERACILLIN/TAZOBACTAM 3.375 GM in DEXTROSE 5% 100 ML IV SCH (08:10)
[2019-05-20] MEDS: FLUTICASONE/VILANTEROL 200/25MCG 14 PUFFS/INHALER INH SCH (08:10)
--- NOTE | 2019-05-20 08:31 | XRay Report ---
XR chest 1V portable HISTORY: Shortness of breath. COMPARISON: Chest 05/19/2019. FINDINGS: Right jugular central venous catheter terminates at the proximal SVC. This remains unchange d. No definite pneumothorax. No pleural effusions. The heart remains borderline enlarged. There is di ffuse interstitial thickening, unchanged. No new focal lung consolidations to suggest pneumonia. IMPRESSION: 1. No definite pneumothorax. 2. Mild diffuse interstitial thickening, unchanged. This could be chronic or represent mild congestiv e change. ACT 112: Negative or not required by law. Electronically signed by: Ed Rodríguez M.D. 05/20/2019 8:29 AM
[2019-05-20 08:43] LABS: Allen Test Pos (Pos); Base Excess ABG 0.6 mEq/L (-9-1.8); HCO3 ABG 26 mmol/L (19-24); PCO2 ABG 44 mmHg (35-46); PO2 ABG 72 mmHg (80-95); pH ABG 7.39 (7.35-7.45)
[2019-05-20] MEDS: LIDOCAINE 5% 1 PATCH TD SCH (08:50)
--- NOTE | 2019-05-20 08:57 | Pulmonology Progress Note ---
Date of Service May 20, 2019 Assessment & Plan (1) Acute on chronic renal failure: Gould catheter to gravity with improved urine output No abel hematuria in the collection bag Right IJ dialysis catheter placed 05/19/[address] العراقي When patient no longer needs dialysis, please contact us for removal of the catheter Further management per nephrology and primary care team (2) Acute and chronic respiratory failure with hypercapnia: Patient placed on BiPAP yesterday with significant improvement in ABGs This morning's ABG reveals a pH of 7.39, PCO2 44, PaO2 72, HCO3 26 on an FiO2 of 40%. Patient converted to high flow O2 at 35 L/min with an FiO2 of 40% Titrate SaO2 to 88 to 92% And observation of the patient, it appears that hypoxia is exacerbated by splinting secondary to back pain Recommend getting patient out of bed to bedside chair as tolerated Continue with incentive spirometry High flow supplemental O2 during the day and continue BiPAP at night (3) JAY on CPAP: Continue BiPAP while inpatient Follow closely Further management outpatient by Dr. Can (4) COPD (chronic obstructive pulmonary disease): Home medications include albuterol HFA, Breo-Ellipta Most recent pulmonary appointment was 01/06/[address] Can PFTs 01/01/2019 * FVC 94% of predicted * FEV1 79% of predicted * FEV1/FVC percentage 67% * TLC 103% * VC 98% * DLCOunc 54% This appears to be normal spirometry with no significant postbronchodilator responseWith moderate decrease in DLCO Continue with Brio Ellipta and as needed nebulizer treatments. No bronchospasm on exam No indication for steroids at this time. Continue to monitor Thank you for including us in the care of this patient. We will continue to follow along with you. Please refer to Dr. Thao's addendum for further recommendations. Supervising Physician Co-Signing Physician Notes Patient seen and examined. EMR reviewed. Discussed with hospitalist and with TODD hurst. Agree with his assessment and plan as noted. The patient does have evidence of interstitial lung disease with increased subpleural reticular markings which have progressed over the last for 5 years. At a definitive diagnosis is not yet been made. Unclear exactly what evaluation has been conducted in the past. These findings certainly could represent a variant of smoking-related interstitial lung disease, specifically RB ILD or DIP. Treatment would primarily be directed at smoking cessation which the patient is not been able to achieve as of yet. He is not a candidate for consideration of surgical lung biopsy currently. His acute hypoxemic respiratory failure is likely multifactorial due to commendations of mild fluid overload, obesity with atelectasis, VQ mismatch, and interstitial lung disease resulting in diminished diffusion capacity. Continue oxygen for now. He should continue nocturnal positive airway pressure. Fluid m anagement per primary service and nephrology with caveat that remain the patient on a slightly euvolemic to dry side may be beneficial with regards to his breathing and oxygen requirement. We will continue to follow. Feel free to contact us with questions or concerns Subjective Attending: Dr. Thao We are asked to follow up from a pulmonary perspective. We met the patient yesterday. Please refer to the Critical Care Consult. Patient was hypercapnic yesterday with associated hypoxia. He has a history of JAY and COPD and follows with Dr. Can as an outpatient. Patient underwent dialysis yesterday but no fluid was taken off. This morning, patient reported to have hypoxia. Patient seen at bedside and found to be splinting secondary to pain. Unable to reposition without shortness of breath. Patient denies chest pain or tightness. He has persistent complaints of back pain. No hemoptysis or significant sputum production. No other acute complaints. Review of Systems Review of Systems: All systems reviewed & are unremarkable except as noted in HPI & below Results & Data ([facility]) Vital Signs (Past 12 Hours) Vital Signs Temp Pulse Pulse Resp BP Pulse Ox 05/20/19 07:41 36.7 C 110 H 21 144/70 H 86 L 05/20/19 07:07 105 H 19 98 05/20/19 04:00 36.6 C 103 H 19 140/71 95 05/20/19 03:26 103 H 20 97 05/20/19 01:38 102 H 05/19/19 23:35 37.7 C H 103 H 21 115/61 95 05/19/19 22:41 102 H 18 97 Laboratory Results 05/20/19 05:59 05/20/19 05:59 Diagnostic Findings XR chest 1V portable HISTORY: Shortness of breath. COMPARISON: Chest 05/19/2019. FINDINGS: Right jugular central venous catheter terminates at the proximal SVC. This remains unchanged. No definite pneumothorax. No pleural effusions. The heart remains borderline enlarged. There is diffuse interstitial thickening, unchanged. No new focal lung consolidations to suggest pneumonia. IMPRESSION: 1. No definite pneumothorax. 2. Mild diffuse interstitial thickening, unchanged. This could be chronic or represent mild congestive change. ACT 112: Negative or not required by law. Electronically signed by: Ed Rodríguez M.D. 05/20/2019 8:29 AM PG Care Time/CCT Total # of Minutes Spent Total Time Spent with Patient: Total time spent is greater than 50% in coordination of care (as documented) at patient's floor/unit and/or counseling patient: Coding Level of Care Code 10954 Subseq Hosp Care Lvl 3 Diagnoses Acute on chronic renal failure N17.9; N18.9 Acute and chronic respiratory failure with hypercapnia J96.22 JAY on CPAP G47.33; Z99.89 COPD (chronic obstructive pulmonary disease) J44.9
[2019-05-20] MEDS ORDERED: SODIUM CHLORIDE 0.9% 1000ML 1,000 ML IV PRN (09:00)
[2019-05-20] MEDS ORDERED: INSULIN GLARGINE SOLOSTAR 100 UNITS/ML 3 ML PEN SC SCH ×2 (09:00→21:00)
--- NOTE | 2019-05-20 09:36 | Hospitalist Progress Note ---
Date of Service May 20, 2019 Assessment & Plan (1) Acute on chronic renal failure: Renal failure with underlying CKD stage III Acute renal failure/ ATN with underlying CKD stage III Baseline creatinine 1.5/as per preop lab work on 05/07/2019 diminished urine out put with Iv Lasix challange anuric/oliguric renal failure, elevated creatinine 2.21 Patient developed hyperkalemia volume overload, overtly uremic with metabolic encephalopathy/confusion Appreciate input from nephrology- Had emergent dialysis yesterday 05/19/2019 Scheduled for repeat acute dialysis today Electrolytes improved, hyperkalemia/metabolic acidosis resolved Follow BMP daily, continue telemetry monitoring Acute CHF with diastolic dysfunction/HFp EF: Patient developed florid volume overload, Due to developed ATN, with oliguric renal failure, Given 80 mg IV Lasix, with minimum urine output Status post emergent dialysis yesterday Echo shows: No wall motion abnormality, normal ejection fraction, grade 1 diastolic dysfunction (2) Hyperkalemia: Due to acute renal failure/poor urine output Losartan discontinued Status post dialysis, with normalization of potassium level (3) Hypoxia: Possible secondary to volume overload, decompensated CHF with diastolic dysfunction Was treated with BiPAP, yesterday-patient remained on BiPAP overnight ABG this morning shows improvement of hypoxemia Respiratory status continues to improve after emergent dialysis yesterday Scheduled for repeat dialysis Chest x-ray today shows improvement of pulmonary congestion Pulmonology team consulted, appreciate input (4) Status post lumbar surgery: Day #2 of lumbar spinal decompression surgery by Dr. Garcia No postoperative complication noted, surgical site/area looked well-healed, no sign of infection Spinal orthopedics be notified to evaluate patient as experiencing severe/stabbing pain on the right buttock area (5) CAD (coronary artery disease): History of coronary artery disease, status post PTCA in 2014 No complaint of chest pain dyspnea on exertion, Echo shows no wall motion abnormality, grade 1 diastolic dysfunction Continue outpatient meds Imdur, beta-sharona, aspirin CODE STATUS: Full code DVT prophylaxis: SCD and teds, Patient status updated to over the phone Admission and Anticipated Discharge Date Admission Date: May 18, 2019 Subjective Patient is awake and alert today oriented to time place person and Complains of severe back/right buttock area pain 10 out of 10, becomes tachycardic, pulse oximetry noted to be desaturation to 70% while on 4 L oxygen via nasal cannula Patient was given 2 mg of IV morphine overnight Had dialysis yesterday, started to have urine output No cough, denies of any orthopnea no shortness of breath, No temperature spike, vitals been stable Review of Systems Review of Systems: All systems reviewed & are unremarkable except as noted in HPI & below Musculoskeletal: + back pain Back pain, mostly localized to right buttock area Physical Exam Constitutional: WD/WN, vitals as above + acute distress (Due to backslash right buttock area pain/tenderness) Eyes: PERRL, conjunctivae normal, anicteric sclerae ENMT: external ear and nose normal, oropharynx normal Neck: trachea midline, no thyromegaly Respiratory: + respiratory distress Auscultation: + crackles, + rales and + wheezes Bilateral rales/crackles noted throughout the lung field Cardiovascular: RRR, no murmur, no edema Gastrointestinal (Abdomen): Percussion/Palpation: abdomen soft; abdomen nontender Musculoskeletal: Point tenderness noted on right buttock area especially on the trochanteric side, very painful to touch, no overlying skin erythema, skin changes noted Surgical bandage present on lumbar decompression surgery area, no surrounding erythema, swelling noted MILES drain present, has minimum serosanguineous fluid Skin: no rashes, warm and dry Neurologic: PERRL, EOMI, accommodation nl, no face palsy, no dysarthria Psychiatric: Orientation: alert and oriented x 3 Mood: + anxious mood Results & Data ([facility]) Vital Signs (Past 12 Hours) Vital Signs Temp Pulse Pulse Resp BP Pulse Ox Pulse Ox 05/20/19 09:02 100 H 18 95 05/20/19 07:41 36.7 C 110 H 21 144/70 H 86 L 05/20/19 07:07 105 H 19 98 05/20/19 04:00 36.6 C 103 H 19 140/71 95 05/20/19 03:26 103 H 20 97 05/20/19 01:38 102 H 05/19/19 23:35 37.7 C H 103 H 21 115/61 95 05/19/19 22:41 102 H 18 97 Diagnostic Findings XR chest 1V portable HISTORY: hypoxia COMPARISON: Chest 05/29/2012. FINDINGS: The heart is mildly enlarged. Mild diffuse interstitial and vascular thickening consistent with pulmonary edema. No pneumothorax. No pleural effusions. No new focal lung consolidations to suggest pneumonia. IMPRESSION: Mild clinically and mild interstitial pulmonary edema. ACT 112: Negative or not required by law. Electronically signed by: Ed Rodríguez M.D. 05/19/2019 10:08 AM
[2019-05-20] MEDS ORDERED: LEVALBUTEROL 1.25MG/0.5ML NEB INH PRN (09:43)
[2019-05-20] MEDS ORDERED: XOPENEX/ATROVENT 1.25mg/0.5MG NEB COMBO NEB PRN (09:43)
[2019-05-20] MEDS ORDERED: IPRATROPIUM BROMIDE NEB SOLN 0.02% 2.5 ML VIAL INH PRN (09:43)
[2019-05-20] MEDS ORDERED: SITAGLIPTIN PHOSPHATE 100 MG TAB PO SCH (09:45)
[2019-05-20] MEDS: MAGNESIUM OXIDE 400 MG TAB PO SCH ×2 (10:04→21:34)
[2019-05-20] MEDS: ATORVASTATIN 20 MG TAB PO SCH (10:05)
[2019-05-20] MEDS: PANTOprazole 40 MG TAB PO SCH (10:05)
[2019-05-20] MEDS: ASPIRIN 81 MG ECTAB PO SCH (10:05)
[2019-05-20] MEDS: ONDANSETRON INJ 2 MG/ML 2 ML VIAL IV PRN (10:59)
[2019-05-20] MEDS ORDERED: VANCOMYCIN HCL 1,250 MG in SODIUM CHLORIDE 0.9% 250 ML IV SCH (11:00)
--- NOTE | 2019-05-20 11:09 | Pharmacy Report ---
Pharmacy Glycemic Short Note 2 - Date of Service May 20, 2019 - Glycemic Short BSG Results (Last 24 hours): 05/19/19 05/19/19 05/19/19 09:36 11:33 11:44 Glucose Cancelled 193 H POC Glucose 209 H 05/19/19 05/19/19 05/19/19 15:34 17:20 17:47 Glucose 134 H 144 H POC Glucose 137 H 05/19/19 05/19/19 05/19/19 20:03 22:11 23:46 Glucose 163 H POC Glucose 134 H 154 H 05/20/19 05/20/19 05:59 06:07 Glucose 129 H POC Glucose 134 H OUTPATIENT ANTIDIABETIC REGIMEN: * Basaglar 64 units SQ AM * Metformin 1000 mg PO BIDM * Januvia 100 mg PO Daily * A1c = 8.3% on 05/07/2019 ASSESSMENT: 05/20/19: * POD #2, on Vancomycin + Zosyn empirically, patient had hyperkalemia and was anuric yesterday, emergent dialyzed, to be dialyzed again today * BSGs ranging 142 - 209 mg/dL yesterday, received 50 units of insulin, 38 units of basal * Novolog parameters were adjusted to CF 25 CR 8 yesterday secondary to elevated lunchtime BSG * Fasting BSG this AM is 134 mg/dL, no breakfast consumed as patient was NPO, T2DM since resumed * Basal requirements may decrease given acute renal dysfunction 05/19/19: * 73 yo M who is POD #1 s/p L4-S1 lumbar decompression and fusion * Patient took 50% of home dose (Basaglar 32 units) prior to surgery on 05/17 AM * Patient was hypoglycemic (BSG 54 mg/dL) pre-op which may be indicative of too large a basal dose as an outpatient * BSGs were well controlled post-op and patient did not received pre- or post-op steroids * Patient was started on CF 15, CR 4 based on estimation of current basal needs and stress of 3 * Received 18 units novolog last evening with meal which ultimately resulted in symptomatic hypoglycemic event * Hypoglycemia was treated appropriately with 16 oz orange juice and 25 mL D50, BSG improved from 41 mg/dL --> 125 mg/dL * Patient received a total of 66 units insulin yesterday, 48 units basal * Fasting BSG 142 mg/dL this AM * Novolog parameters will need loosened for today, may need to tighten in future but not appropriate for now given hypoglycemic event PLAN FOR INPATIENT GLYCEMIC CONTROL: * Hold outpatient oral diabetes medications * Basal insulin * Lantus 20 units SQ AM * Lantus scale HS, 16-24 units depending on BSG, see protocol tab of Glargine order on APR * Bolus insulin * NovoLog per scale ACHS or Q6hrs while NPO * ADJUSTED: Goal Range: Low 120 mg/dL - High 150 mg/dL * Correction Factor: 25 mg/dL/unit * Nutritional / Prandial insulin per carb ratio of 1 unit per 8 grams CHO consumed PLAN FOR DISCHARGE: * To be determined
--- NOTE | 2019-05-20 11:39 | Nephrology Progress Note ---
Date of Service May 20, 2019 Assessment & Plan (1) Acute on chronic renal failure: Patient with acute renal failure likely due to ischemic ATN in setting of lumbar fusion and postoperative NSAID use. Baseline creatinine of 1.5. Creatinine peak 2.2 and patient anuric. Due to hyperkalemia and somnolence, Patient had urgent dialysis 05/18 for 2 hours on a 1K bath and target UF of 1 L. Patient is getting another 2 hours of isolated ultrafiltration today for net UF of 3 L. -Continue to monitor renal function with daily BMP. -Avoid nephrotoxins such as NSAIDs and contrast unless lifesaving (2) Hyperkalemia: Due to acute renal failure. Patient has received several rounds of insulin dextrose 05/18. K is better at 4.8 today We will dialyze him on a 2K bath. Monitor k daily (3) Hypoxia: Due to pulmonary edema based on the chest x-ray. Will take off 3 L UF today. Continue BiPAP as needed (4) Status post lumbar surgery: Patient is postoperative day 2. Management per Dr. Garcia. Avoid morphine or oxycodone for pain control. Fentanyl and Dilaudid are acceptable to use in setting of acute renal failure. Admission and Anticipated Discharge Date Admission Date: May 18, 2019 Subjective Patient seen and examined while on dialysis. Patient had dialysis yesterday as well for hyperkalemia. He is more awake today and able to give history. He reports shortness of breath and back pain. Review of Systems Review of Systems: All systems reviewed & are unremarkable except as noted in HPI & below Physical Exam Physical Exam: General exam: Appears comfortable On oxygen, no acute distress HEENT: Pupils are equal and reactive to light Neck: No JVD, neck is supple trachea is midline Respiratory system: Crackles bilaterally. Gastrointestinal: Abdomen is soft, non distended, non tender, bowel sounds are present CVS: Regular rate and rhythm. No murmurs, rubs or gallops Musculoskeletal: No joint or muscle tenderness Extremities: Non tender, no edema, peripheral pulses are present Neuro: Oriented, no tremors, no focal neurological deficits Skin: No rashes Results & Data ([facility]) Vital Signs (Past 12 Hours) Vital Signs Temp Pulse Pulse Resp BP Pulse Ox Pulse Ox 05/20/19 11:00 94 H 18 100 05/20/19 09:02 100 H 18 95 03/25/20 07:41 36.7 C 110 H 21 144/70 H 86 L 05/20/19 07:07 105 H 19 98 05/20/19 04:00 36.6 C 103 H 19 140/71 95 05/20/19 03:26 103 H 20 97 05/20/19 01:38 102 H 05/19/19 23:35 37.7 C H 103 H 21 115/61 95 Laboratory Results 05/20/19 05:59 05/20/19 05:59 WBC 18.49 H RBC 3.56 L MCV 98.0 MCH 31.2 MCHC 31.8 L RDW Std Deviation 48.5 H RDW Coeff of Jono 13.5 Plt Count 240 MPV 9.2 Diagnostic Findings Chest x-ray showing mild congestive changes
--- NOTE | 2019-05-20 11:57 | Orthopedic Progress Note ---
Date of Service May 20, 2019 Assessment & Plan (1) Neurogenic claudication due to lumbar spinal stenosis: At this time we will encourage bed to chair as tolerated and eventually physical therapy if okay with medicine. Strongly suspect his back pain will improve as he begins activity. Present on Admission?: Yes Admission and Anticipated Discharge Date Admission Date: May 18, 2019 Subjective Patient complaining mostly of some back pain no leg pain. Physical Exam Physical Exam: On exam is excellent strength testing. Is some tenderness palpation of the paravertebral musculature. Results & Data ([facility]) Vital Signs (Past 12 Hours) Vital Signs Temp Pulse Pulse Resp BP Pulse Ox Pulse Ox 05/20/19 11:48 37.0 C 90 18 136/62 95 05/20/19 11:00 94 H 18 100 05/20/19 09:02 100 H 18 95 05/20/19 07:41 36.7 C 110 H 21 144/70 H 86 L 05/20/19 07:07 105 H 19 98 05/20/19 04:00 36.6 C 103 H 19 140/71 95 05/20/19 03:26 103 H 20 97 05/20/19 01:38 102 H
[2019-05-21] MEDS: INSULIN ASPART 100 UNITS/ML 3 ML PEN SC SCH ×5 (00:22→21:04)
[2019-05-21 05:47] LABS: Hematocrit (blood only) 29.8 % (42-52); Hemoglobin 9.8 g/dL (14.0-18.0); Mean Corpuscular Hemoglobin 31.6 pg (25-34); Mean Corpuscular Hgb Conc 32.9 g/dL (32-36); Mean Corpuscular Volume 96.1 fL (80-100); Mean Platelet Volume 9.1 fL (7.4-10.4); Platelet Count 219 K/uL (130-400); RDW Coefficient of Variation 13.3 % (11.5-14.5); RDW Standard Deviation 46.2 fL (36.4-46.3); White Blood Count 16.23 K/uL (4.8-10.8)
[2019-05-21 06:18] LABS: BUN Creatinine Ratio 19.3 (10-20); Calcium 8.6 mg/dl (8.5-10.1); Creatinine Clr Calc Pharmacy 46.4 ml/min; Est GFR (African American) 46.7; Est GFR (Non-African American) 40.3; Potassium 4.4 mmol/L (3.5-5.1)
--- NOTE | 2019-05-21 07:15 | Hospitalist Progress Note ---
Date of Service May 21, 2019 Assessment & Plan (1) Acute on chronic renal failure: Renal failure with underlying CKD stage III Acute renal failure/ ATN with underlying CKD stage III Baseline creatinine 1.5/as per preop lab work on 05/07/2019 diminished urine out put with Iv Lasix challenge anuric/oliguric renal failure, elevated creatinine 2.21 Patient developed hyperkalemia volume overload, overtly uremic with metabolic encephalopathy/confusion Appreciate input from nephrology- Had emergent dialysis on 05/19/2019 (1L removed) then again HD on 04/21 (2.5 L removed), no anticipated HD today (05/20) per nephro. Will start IV lasix 80 BID (05/20) Electrolytes improved, hyperkalemia/metabolic acidosis resolved Follow BMP daily, continue telemetry monitoring Acute CHF with diastolic dysfunction/HFp EF: Patient developed florid volume overload, Due to developed ATN, with oliguric renal failure, Given 80 mg IV Lasix initially, with minimum urine output Status post emergent dialysis on 05/18 Echo shows: No wall motion abnormality, normal ejection fraction, grade 1 diastolic dysfunction (2) Hyperkalemia: Resolved Due to acute renal failure/poor urine output Losartan discontinued Status post dialysis, with normalization of potassium level (3) Hypoxia: Possible secondary to volume overload, decompensated CHF with diastolic dysfunction, in the setting of interstitial lung disease Was treated with BiPAP ABG showed improvement of hypoxemia yesterday AM (05/19) Respiratory status continues to improve after emergent dialysis and repeat HD Chest x-ray on 05/19 shows improvement of pulmonary congestion Pulmonology team consulted, appreciate input - switched pt from HF to NC currently on 3L satting 97% (05/20) (4) Status post lumbar surgery: Day #3 of lumbar spinal decompression surgery by Dr. Garcia No postoperative complication noted, surgical site seems to be healing, no sign of infection Spinal orthopedics was notified to evaluate patient as experiencing severe/stabbing pain on the right buttock area yesterday 05/19 - believed to be trochanteric bursitis Anemia - acute blood loss/ post op anemia - cont. to monitor (5) CAD (coronary artery disease): History of coronary artery disease, status post PTCA in 2014 No complaint of chest pain dyspnea on exertion, Echo shows no wall motion abnormality, grade 1 diastolic dysfunction Continue outpatient meds Imdur, beta-sharona, aspirin CODE STATUS: Full code DVT prophylaxis: SCD and teds Pt's updated over the phone Admission and Anticipated Discharge Date Admission Date: May 18, 2019 Subjective Sitting up on the edge of the bed, just switched from high flow to NC 3L satting 97%. Denies any fever, chills, chest pain, shortness of breath, abd. pain, nausea or vomiting. Says leg pain and back pain feel better. Had BM this AM. Still has Gould in, drains dark yellow urine. No HD anticipated today. Start IV lasix. Possibly removing R IJ catheter soon if no need for HD. Renal US ordered by Dr. Mortensen Review of Systems Review of Systems: All systems reviewed & are unremarkable except as noted in HPI & below Constitutional: no fever and no chills Respiratory: no cough and no dyspnea (but just switched from HF to NC 3L) Cardiovascular: no chest pain and no palpitations Gastrointestinal: no abdominal pain, no nausea and no vomiting Musculoskeletal: + back pain improved Physical Exam Physical Exam: Constitutional: elderly male sitting up in bed, WD/WN, vitals as above, in no acute distress, currently on 3L NC Eyes: PERRL, conjunctivae normal, anicteric sclerae ENMT: external ear and nose normal, oropharynx normal Neck: trachea midline, no thyromegaly Respiratory: no respiratory distress Auscultation: + mild bibasilar crackles, no wheezes Cardiovascular: RRR, no murmur, no edema Gastrointestinal (Abdomen): Percussion/Palpation: abdomen soft, obese, nontender Musculoskeletal: Surgical dressings present on lumbar decompression surgery area, no surrounding erythema, swelling noted : Gould placed, drains dark yellow urine Skin: no rashes, warm and dry Neurologic: PERRL, EOMI, accommodation nl, no face palsy, no dysarthria, moves extremities spontaneously Psychiatric: Orientation: alert and oriented x 3 Mood: euthymic mood Results & Data Results & Data ([facility]) Vital Signs (Past 12 Hours) Vital Signs Temp Pulse Pulse Pulse Pulse Resp BP 05/21/19 07:08 108 H 20 05/21/19 06:55 36.8 C 96 H 18 135/66 05/21/19 03:35 102 H 18 05/21/19 02:54 36.4 C L 96 H 18 154/79 H 05/20/19 23:57 37.1 C 05/20/19 23:47 96 H 18 143/66 H 05/20/19 22:30 102 H 05/20/19 22:22 102 H 25 H 05/20/19 22:17 36.8 C 101 H 18 153/53 H 05/20/19 19:19 106 H 18 Pulse Ox 05/21/19 07:08 94 05/21/19 06:55 94 05/21/19 03:35 93 05/21/19 02:54 95 05/20/19 23:57 05/20/19 23:47 95 05/20/19 22:30 05/20/19 22:22 95 05/20/19 22:17 96 05/20/19 19:19 95 Laboratory Results 05/21/19 05/21/19 05/21/19 Range/Units 05:41 05:21 05:21 WBC 16.23 H (4.8-10.8) K/uL RBC 3.10 L (4.7-6.1) M/uL Hgb 9.8 L (14.0-18.0) g/dL Hct 29.8 L (42-52) % MCV 96.1 (80-100) fL MCH 31.6 (25-34) pg MCHC 32.9 (32-36) g/dL RDW Std Deviation 46.2 (36.4-46.3) fL RDW Coeff of Jono 13.3 (11.5-14.5) % Plt Count 219 (130-400) K/uL MPV 9.1 (7.4-10.4) fL ABG pH (7.35-7.45) ABG pCO2 (35-46) mmHg ABG pO2 (80-95) mmHg ABG HCO3 (19-24) mmol/L ABG O2 Saturation (90-95) % ABG Base Excess (-9-1.8) mEq/L [place] Test (Pos) Barometric Pressure mm/Hg Oxygen Given Sodium 136 (136-145) mmol/L Potassium 4.4 (3.5-5.1) mmol/L Chloride 103 (98-107) mmol/L Carbon Dioxide 30 (21-32) mmol/L Anion Gap 2.0 L (3-11) BUN 32 H (7-18) mg/dl Creatinine 1.67 H D (0.6-1.4) mg/dl Est Cr Clr Drug Dosing 46.4 ml/min Est GFR ( Amer) 46.7 Est GFR (Non-Af Amer) 40.3 BUN/Creatinine Ratio 19.3 (10-20) Glucose 112 H (70-99) mg/dl POC Glucose 121 H (70-99) mg/dl Calcium 8.6 (8.5-10.1) mg/dl 05/21/19 05/20/19 05/20/19 Range/Units 00:19 21:37 17:02 WBC (4.8-10.8) K/uL RBC (4.7-6.1) M/uL Hgb (14.0-18.0) g/dL Hct (42-52) % MCV (80-100) fL MCH (25-34) pg MCHC (32-36) g/dL RDW Std Deviation (36.4-46.3) fL RDW Coeff of Jono (11.5-14.5) % Plt Count (130-400) K/uL MPV (7.4-10.4) fL ABG pH (7.35-7.45) ABG pCO2 (35-46) mmHg ABG pO2 (80-95) mmHg ABG HCO3 (19-24) mmol/L ABG O2 Saturation (90-95) % ABG Base Excess (-9-1.8) mEq/L D[place]a Test (Pos) Barometric Pressure mm/Hg Oxygen Given Sodium (136-145) mmol/L Potassium (3.5-5.1) mmol/L Chloride (98-107) mmol/L Carbon Dioxide (21-32) mmol/L Anion Gap (3-11) BUN (7-18) mg/dl Creatinine (0.6-1.4) mg/dl Est Cr Clr Drug Dosing ml/min Est GFR ( Amer) Est GFR (Non-Af Amer) BUN/Creatinine Ratio (10-20) Glucose (70-99) mg/dl POC Glucose 172 H 181 H 162 H (70-99) mg/dl Calcium (8.5-10.1) mg/dl 05/20/19 Range/Units 08:30 WBC (4.8-10.8) K/uL RBC (4.7-6.1) M/uL Hgb (14.0-18.0) g/dL Hct (42-52) % MCV (80-100) fL MCH (25-34) pg MCHC (32-36) g/dL RDW Std Deviation (36.4-46.3) fL RDW Coeff of Jono (11.5-14.5) % Plt Count (130-400) K/uL MPV (7.4-10.4) fL ABG pH 7.39 (7.35-7.45) ABG pCO2 44 (35-46) mmHg ABG pO2 72 L (80-95) mmHg ABG HCO3 26 H (19-24) mmol/L ABG O2 Saturation 95.0 (90-95) % ABG Base Excess 0.6 (-9-1.8) mEq/L [place] Test Pos (Pos) Barometric Pressure 731.6 mm/Hg Oxygen Given 40% Sodium (136-145) mmol/L Potassium (3.5-5.1) mmol/L Chloride (98-107) mmol/L Carbon Dioxide (21-32) mmol/L Anion Gap (3-11) BUN (7-18) mg/dl Creatinine (0.6-1.4) mg/dl Est Cr Clr Drug Dosing ml/min Est GFR ( Amer) Est GFR (Non-Af Amer) BUN/Creatinine Ratio (10-20) Glucose (70-99) mg/dl POC Glucose (70-99) mg/dl Calcium (8.5-10.1) mg/dl Medications Administered Current Inpatient Medications Albuterol (Ventolin Hfa) 2 puffs INH Q6H PRN PRN Reason: shortness of breath or wheezing Stop: 06/17/19 13:11 Aspirin (Ecotrin Ectab) 81 mg PO QAM MONI Stop: 06/19/19 09:44 Last Admin: 05/20/19 10:05 Dose: 81 mg Documented by: Atorvastatin Calcium (Lipitor) 20 mg PO QAM MONI Stop: 06/19/19 09:44 Last Admin: 05/20/19 10:05 Dose: 20 mg Documented by: Dextrose (Dextrose 50%) 25 - 50 ml IV UD PRN; Protocol PRN Reason: Hypoglycemia Protocol Stop: 06/17/19 13:58 Fluticasone/Vilanterol (Breo Ellipta 200/25 Mcg Inh) 1 puffs INH DAILY MONI Stop: 06/18/19 08:59 Last Admin: 05/20/19 08:10 Dose: 1 puffs Documented by: Glucagon (Glucagen) 1 mg SQ UD PRN; Protocol PRN Reason: Hypoglycemia Protocol Stop: 06/17/19 13:58 Glucose (Dex4 Glucose) 4 - 8 tabs PO UD PRN; Protocol PRN Reason: Hypoglycemia Protocol Stop: 06/17/19 13:58 Glucose (Glucose 40%) 15 - 30 gm PO UD PRN; Protocol PRN Reason: Hypoglycemia Protocol Stop: 06/17/19 13:58 Promethazine HCl 12.5 mg/ (Sodium Chloride) 50.5 mls @ 204 mls/hr IV Q6H PRN PRN Reason: Nausea &/or Vomiting Stop: 06/17/19 13:11 Last Infusion: 05/19/19 06:29 Dose: Infused Documented by: Influenza Virus Vaccine Quadrival (Flu Vaccine, Do Not Administer) 1 ea N/A PRN PRN PRN Reason: Notification Stop: 06/17/19 13:11 Insulin Aspart (Novolog Flexpen) 0 units SC Q6 MONI Stop: 06/19/19 00:00 Last Admin: 05/21/19 05:41 Dose: Not Given Documented by: Insulin Glargine (Lantus Solostar Pen) 0 units SC HS MONI; Protocol Stop: 06/19/19 20:59 Last Admin: 05/20/19 21:38 Dose: 24 units Documented by: Ipratropium Dexter (Atrovent 0.02% 0.5mg/2.5ml) 0.5 mg INH Q4H PRN PRN Reason: wheeze Stop: 06/19/19 09:44 Levalbuterol HCl (Xopenex 1.25mg/0.5ml Neb) 1.25 mg INH Q4 PRN PRN Reason: wheeze Stop: 06/19/19 11:59 Lidocaine (Lidoderm 5%) 1 patch TD QAM MONI Stop: 06/19/19 08:29 Last Admin: 05/20/19 08:50 Dose: 1 patch Documented by: Magnesium Oxide (Mag-Ox) 200 mg PO BID MONI Stop: 06/19/19 09:44 Last Admin: 05/20/19 21:34 Dose: 200 mg Documented by: Miscellaneous (Carbohydrates For Hypoglycemia) 15 - 30 gm PO UD PRN PRN Reason: Hypoglycemia Protocol Stop: 06/17/19 13:58 Last Admin: 05/19/19 00:25 Dose: 15 gm Documented by: Miscellaneous (Remove Lidoderm Patch) 1 ea N/A DAILY@2100 [facility] Stop: 06/19/19 20:59 Last Admin: 05/20/19 21:33 Dose: 1 ea Documented by: Miscellaneous Information (Consult Glycemic Management Pharmacy) 1 ea N/A UD PRN PRN Reason: Consult Stop: 06/18/19 09:30 Naloxone HCl (Narcan) 0.1 mg IV Q5M PRN; Protocol PRN Reason: Oversedation/Resp Depression Stop: 06/17/19 13:11 Ondansetron HCl (Zofran) 4 mg IV Q6H PRN PRN Reason: Nausea &/or Vomiting Stop: 06/17/19 13:11 Last Admin: 05/20/19 10:59 Dose: 4 mg Documented by: Pantoprazole Sodium (Protonix) 40 mg PO QAM [facility] Stop: 06/20/19 08:59 Last Admin: 05/20/19 10:05 Dose: 40 mg Documented by: Pneumococcal Polyvalent Vaccine (Pneumococcal Vacc, Do Not Administer) 1 ea N/A PRN PRN PRN Reason: Notification Stop: 06/17/19 13:11 Sodium Biphosphate/Sodium Phosphate (Fleet Enema) 132 ml NM ONE PRN PRN Reason: Constipation Stop: 06/17/19 13:11
--- NOTE | 2019-05-21 08:54 | Orthopedic Progress Note ---
Date of Service May 21, 2019 Assessment & Plan (1) Neurogenic claudication due to lumbar spinal stenosis: This time I would continue to encourage bed to chair and ambulation as tolerated. He is requesting to have his Luis Fernando BELTRE'd. This is up to medicine. Present on Admission?: Yes Admission and Anticipated Discharge Date Admission Date: May 18, 2019 Subjective Back pain improved leg pain improved. Physical Exam Physical Exam: Patient is good strength testing appears much more comfortable today. Results & Data ([facility]) Vital Signs (Past 12 Hours) Vital Signs Temp Pulse Pulse Pulse Pulse Resp BP 05/21/19 07:08 108 H 20 05/21/19 06:55 36.8 C 96 H 18 135/66 05/21/19 03:35 102 H 18 05/21/19 02:54 36.4 C L 96 H 18 154/79 H 05/20/19 23:57 37.1 C 05/20/19 23:47 96 H 18 143/66 H 05/20/19 22:30 102 H 05/20/19 22:22 102 H 25 H 05/20/19 22:17 36.8 C 101 H 18 153/53 H Pulse Ox 05/21/19 07:08 94 05/21/19 06:55 94 05/21/19 03:35 93 05/21/19 02:54 95 05/20/19 23:57 05/20/19 23:47 95 05/20/19 22:30 05/20/19 22:22 95 05/20/19 22:17 96
--- NOTE | 2019-05-21 09:59 | Pharmacy Report ---
Pharmacy Glycemic Short Note 2 - Date of Service May 21, 2019 - Glycemic Short BSG Results (Last 24 hours): 05/20/19 05/20/19 05/21/19 17:02 21:37 00:19 Glucose POC Glucose 162 H 181 H 172 H 05/21/19 05/21/19 05/21/19 05:21 05:41 07:39 Glucose 112 H POC Glucose 121 H 113 H OUTPATIENT ANTIDIABETIC REGIMEN: * Basaglar 64 units SQ AM * Metformin 1000 mg PO BIDM * Januvia 100 mg PO Daily * A1c = 8.3% on 05/07/2019 ASSESSMENT: 05/21/19: * 73 yo M who is POD #3 s/p L4-S1 lumbar decompression and fusion * BSGs ranging 134 - 181 mg/dL yesterday * Received 49 units of insulin total, 44 units basal * Patient not scheduled for dialysis today * Fasting BSG this AM was 113 mg/dL * Correctional/Prandial insulin may need adjusted secondary to high post- prandial BSGg 05/20/19: * POD #2, on Vancomycin + Zosyn empirically, patient had hyperkalemia and was anuric yesterday, emergent dialyzed, to be dialyzed again today * BSGs ranging 142 - 209 mg/dL yesterday, received 50 units of insulin, 38 units of basal * Novolog parameters were adjusted to CF 25 CR 8 yesterday secondary to elevated lunchtime BSG * Fasting BSG this AM is 134 mg/dL, no breakfast consumed as patient was NPO, T2DM since resumed * Basal requirements may decrease given acute renal dysfunction PLAN FOR INPATIENT GLYCEMIC CONTROL: * Hold outpatient oral diabetes medications * Basal insulin * Lantus 16 units SQ BID (for BSG < 110 mg/dL) * Lantus 20 units SQ BID (for BSG 110 - 180 mg/dL) * Lantus 24 units SQ BID (for BSG > 180 mg/dL) * Bolus insulin * NovoLog per scale ACHS or Q6hrs while NPO * ADJUSTED: Goal Range: Low 110 mg/dL - High 140 mg/dL * TIGHTENED: Correction Factor: 20 mg/dL/unit * TIGHTENED: Nutritional / Prandial insulin per carb ratio of 1 unit per 7 grams CHO consumed PLAN FOR DISCHARGE: * Recommend 15% reduction in Basaglar outpatient dose secondary to hypoglycemia upon admission. 15% reduction would result in Basaglar 54 units SQ AM. * Continue Metformin and Januvia.
[2019-05-21] MEDS: FLUTICASONE/VILANTEROL 200/25MCG 14 PUFFS/INHALER INH SCH (10:05)
[2019-05-21] MEDS: ASPIRIN 81 MG ECTAB PO SCH (10:07)
[2019-05-21] MEDS: MAGNESIUM OXIDE 400 MG TAB PO SCH ×2 (10:08→20:19)
[2019-05-21] MEDS: ATORVASTATIN 20 MG TAB PO SCH (10:08)
[2019-05-21] MEDS: PANTOprazole 40 MG TAB PO SCH (10:08)
[2019-05-21] MEDS: INSULIN GLARGINE SOLOSTAR 100 UNITS/ML 3 ML PEN SC SCH ×2 (10:18→21:04)
[2019-05-21] MEDS: LIDOCAINE 5% 1 PATCH TD SCH (10:19)
--- NOTE | 2019-05-21 10:40 | Pulmonology Progress Note ---
Date of Service May 21, 2019 Assessment & Plan (1) Acute on chronic renal failure: Gould catheter to gravity with improved urine output No abel hematuria in the collection bag Right IJ dialysis catheter placed 05/19/[address] العراقي Is anticipated the patient will not need any further dialysis and may have catheter removed tomorrow When patient no longer needs dialysis, please contact us for removal of the catheter Further management per nephrology and primary care team (2) Acute and chronic respiratory failure with hypercapnia: Patient placed on BiPAP 05/18/2019 with significant improvement in ABGs ABG 05/21/2019 revealed a pH of 7.39, PCO2 44, PaO2 72, HCO3 26 on an FiO2 of 40%. Patient converted to high flow O2 at 35 L/min with an FiO2 of 40% yesterday * Will discontinue high flow for now and do titration with nasal cannula as tolerated * Once patient is comfortably converted to nasal cannula, ambulate as tolerated Titrate SaO2 to 88 to 92% Hypoxia was exacerbated by splinting secondary to back pain. Patient no longer splinting and is sitting at edge of bed Continue out of bed to bedside chair as tolerated Ambulate as tolerated * Discussed with Dr. Óscar Garcia -no limitations to ambulation Continue with incentive spirometry High BiPAP HS (3) JAY on CPAP: Continue BiPAP while inpatient Follow closely Further management outpatient by Dr. Can (4) COPD (chronic obstructive pulmonary disease): Home medications include albuterol HFA, Breo-Ellipta Most recent pulmonary appointment was 01/06/[address] Can PFTs 01/01/2019 * FVC 94% of predicted * FEV1 79% of predicted * FEV1/FVC percentage 67% * TLC 103% * VC 98% * DLCOunc 54% This appears to be normal spirometry with no significant postbronchodilator responseWith moderate decrease in DLCO Continue with Brio Ellipta and as needed nebulizer treatments. No bronchospasm on exam No indication for steroids at this time. Continue to monitor Thank you for including us in the care of this patient. We will sign off at this time. Patient should follow-up outpatient with Dr. Can on discharge Admission and Anticipated Discharge Date Admission Date: May 18, 2019 Subjective Attending: Dr. Thao There is a 73-year-old male with history of COPD and JAY. Recent PFTs to not show any abnormal spirometry. Patient presented for lumbar surgery and then experienced profound hypercapnia and hypoxia. The patient had received narcotics for the pain and this exacerbated his shortness of breath. Yesterday the patient was placed on high flow oxygen. He has tolerated this well and the high flow has been titrated and he is currently on 35 L/min and an FiO2 of 30%. Patient denies any acute shortness of breath. Back pain is improved but still rated 7 out of 10. All pain meds have been held secondary to his lethargy yesterday. Patient denies any fever chills. No sweats or rigors. He has no chest pain or tightness. He has no feelings of air hunger. He can talk in full sentences without any shortness of breath. Review of Systems Review of Systems: All systems reviewed & are unremarkable except as noted in HPI & below Physical Exam Physical Exam: GENERAL : No acute distress EYES: No icterus, gaze conjugate NOSE: No evidence of epistaxis MOUTH: No lesions or candidiasis NECK: Supple LUNGS: Slight crackles at the bilateral bases. Good inspiratory effort. No cough induced with deep inspiration. HEART: Regular, rate controlled BACK: Dressing is dry and intact from recent surgery ABDOMEN: Soft, NT, ND, BS Present EXTREMITIES: No LE edema, pedal pulses intact NEURO: A&OX3 Results & Data Results & Data ([facility]) Vital Signs (Past 12 Hours) Vital Signs Temp Pulse Pulse Pulse Resp BP Pulse Ox 05/21/19 10:27 90 20 92 05/21/19 07:08 108 H 20 94 05/21/19 06:55 36.8 C 96 H 18 135/66 94 05/21/19 03:35 102 H 18 93 05/21/19 02:54 36.4 C L 96 H 18 154/79 H 95 05/20/19 23:57 37.1 C 05/20/19 23:47 96 H 18 143/66 H 95 Laboratory Results 05/21/19 05:21 05/21/19 05:21 Diagnostic Findings No further diagnostic testing from a pulmonary perspective since 05/20/2019 PG Care Time/CCT Total # of Minutes Spent Total Time Spent with Patient: Total time spent is greater than 50% in coordination of care (as documented) at patient's floor/unit and/or counseling patient: 20 minutes Coding Level of Care Code 85612 Subseq Hosp Care Lvl 2 Diagnoses Acute on chronic renal failure N17.9; N18.9 Acute and chronic respiratory failure with hypercapnia J96.22 JAY on CPAP G47.33; Z99.89 COPD (chronic obstructive pulmonary disease) J44.9
[2019-05-21] MEDS ORDERED: FUROSEMIDE 80 MG in SYRINGE 0 ML IV ONE (18:45)
--- NOTE | 2019-05-21 19:41 | Nephrology Progress Note ---
Date of Service May 21, 2019 Assessment & Plan (1) Acute on chronic renal failure: Patient with acute renal failure likely due to ischemic ATN in setting of lumbar fusion and postoperative NSAID use. Baseline creatinine of 1.5. Creatinine peak 2.2. Due to hyperkalemia and somnolence, Patient had urgent dialysis 05/18 for 2 hours on a 1K bath and target UF of 1 L. Patient had another 2 hours of isolated ultrafiltration yesterday for net UF of 2.5 L. No need for HD today -Continue to monitor renal function with daily BMP. -Avoid nephrotoxins such as NSAIDs and contrast unless lifesaving (2) Hyperkalemia: Due to acute renal failure. Patient has received several rounds of insulin dextrose 05/18. K is better at 4.4 today. Monitor k daily (3) Hypoxia: Due to pulmonary edema based on the chest x-ray. Will start lasix 80mg iv bid today. Continue BiPAP as needed (4) Status post lumbar surgery: Patient is postoperative day 3. Management per Dr. Garcia. Avoid morphine or oxycodone for pain control. Fentanyl and Dilaudid are acceptable to use in setting of acute renal failure. Admission and Anticipated Discharge Date Admission Date: May 18, 2019 Subjective He is feeling better. he requests stewart removal. He has a sitter due to pulling on things. He is high flow oxygen Review of Systems Review of Systems: All systems reviewed & are unremarkable except as noted in HPI & below Physical Exam Physical Exam: General exam: Appears comfortable, no acute distress HEENT: Pupils are equal and reactive to light Neck: No JVD, neck is supple trachea is midline Respiratory system: Reduced breath sounds bilaterally. Gastrointestinal: Abdomen is soft, non distended, non tender, bowel sounds are present CVS: Regular rate and rhythm. No murmurs, rubs or gallops Musculoskeletal: No joint or muscle tenderness Extremities: Non tender, no edema, peripheral pulses are present Neuro: Oriented, no tremors, no focal neurological deficits Skin: No rashes Results & Data ([facility]) Vital Signs (Past 12 Hours) Vital Signs Temp Pulse Pulse Resp BP BP Pulse Ox 05/21/19 16:39 100 H 05/21/19 15:54 95 05/21/19 15:35 36.9 C 90 18 141/57 H 97 05/21/19 12:00 36.6 C 94 H 15 153/61 H 98 05/21/19 10:55 36.7 C 90 15 153/61 H 99 05/21/19 10:27 90 20 92 Laboratory Results 05/21/19 05:21 05/21/19 05:21 WBC 16.23 H RBC 3.10 L MCV 96.1 MCH 31.6 MCHC 32.9 RDW Std Deviation 46.2 RDW Coeff of Jono 13.3 Plt Count 219 MPV 9.1
[2019-05-21] MEDS: DICLOFENAC SOD 1% GEL 100 GM TUBE EXT PRN (22:02)
[2019-05-22 05:41] LABS: Hemoglobin 10.7 g/dL (14.0-18.0); Mean Corpuscular Hemoglobin 31.7 pg (25-34); Mean Corpuscular Hgb Conc 33.4 g/dL (32-36); Mean Corpuscular Volume 94.7 fL (80-100); Mean Platelet Volume 9.3 fL (7.4-10.4); Platelet Count 244 K/uL (130-400); RDW Coefficient of Variation 12.8 % (11.5-14.5); RDW Standard Deviation 43.8 fL (36.4-46.3); Red Blood Count 3.38 M/uL (4.7-6.1); White Blood Count 15.38 K/uL (4.8-10.8)
[2019-05-22 06:22] LABS: BUN Creatinine Ratio 21.7 (10-20); Calcium 8.7 mg/dl (8.5-10.1); Creatinine Clr Calc Pharmacy 55.4 ml/min; Est GFR (African American) 57.3; Est GFR (Non-African American) 49.4; Magnesium 1.9 mg/dl (1.8-2.4); Phosphorus 2.7 mg/dl (2.5-4.9); Potassium 3.3 mmol/L (3.5-5.1)
[2019-05-22] MEDS ORDERED: POTASSIUM CHLORIDE 20 MEQ TABCR PO STA (07:15)
--- NOTE | 2019-05-22 07:19 | Hospitalist Progress Note ---
Date of Service May 22, 2019 Assessment & Plan (1) Acute on chronic renal failure: Renal failure with underlying CKD stage III Acute renal failure/ ATN with underlying CKD stage III Baseline creatinine 1.5/as per preop lab work on 05/07/2019 diminished urine out put with Iv Lasix challenge anuric/oliguric renal failure, elevated creatinine 2.21 Patient developed hyperkalemia volume overload, overtly uremic with metabolic encephalopathy/confusion Appreciate input from nephrology- Had emergent dialysis on 05/19/2019 (1L removed) then again HD on 05/19 (2.5 L removed) Gave 80 mg IV lasix on (05/20), no HD - No more plan for HD, ok to remove R IJ line Electrolytes improved, hyperkalemia/metabolic acidosis resolved Follow BMP daily, continue telemetry monitoring Pt now hypokalemic (from diuretics), K replaced, will cont. to monitor Acute CHF with diastolic dysfunction/HFp EF: Patient developed florid volume overload, Due to developed ATN, with oliguric renal failure, Given 80 mg IV Lasix initially, with minimum urine output Status post emergent dialysis on 05/18 Echo shows: No wall motion abnormality, normal ejection fraction, grade 1 diastolic dysfunction (2) Hyperkalemia: Resolved Due to acute renal failure/poor urine output Losartan discontinued Status post dialysis, with normalization of potassium level Pt is now hypokalemic (2/2 diuretic use), K replaced, will cont. to monitor (3) Hypoxia: Possible secondary to volume overload, decompensated CHF with diastolic dysfunction, in the setting of interstitial lung disease Was treated with BiPAP ABG showed improvement of hypoxemia (05/19) Respiratory status continues to improve after emergent dialysis and repeat HD Chest x-ray on 05/19 shows improvement of pulmonary congestion Pulmonology team consulted, appreciate input - switched pt from HF to NC, currently on 2-3L (4) Status post lumbar surgery: Day #4 of lumbar spinal decompression surgery by Dr. Garcia No postoperative complication noted, surgical site seems to be healing, no sign of infection Spinal ortho was notified to evaluate patient as experiencing severe/stabbing pain on the right buttock area on 05/19 - believed to be trochanteric bursitis, no current complaints Anemia - acute blood loss/ post op anemia - cont. to monitor (5) CAD (coronary artery disease): History of coronary artery disease, status post PTCA in 2014 No complaint of chest pain dyspnea on exertion, Echo shows no wall motion abnormality, grade 1 diastolic dysfunction Continue outpatient meds Imdur, beta-sharona, aspirin CODE STATUS: Full code DVT prophylaxis: SCD and teds Pt's updated over the phone Admission and Anticipated Discharge Date Admission Date: May 18, 2019 Subjective Pt seen and examined this AM, pt is lying in bed, in NAD, on 2-3L NC. Gould drains dark yellow urine. R IJ placed. Pt denies any fever, chills, chest pain, shortness of breath, abd. pain, nausea or vomiting. Says he feels better and is inquiring about going home. Able to ambulate in hallway with a walker. Discussed with nephrology, no plan for further HD and IV lasix discontinued, ok to remove R IJ line. Strainer Cleaner notified about no further need for the catheter. Update: Renal US reviewed, no signs of obstruction, Gould catheter removed and pt voiding w/o difficulty. Pt also weaned off O2 this PM. Pt's discussed her concern with me and CM regarding pt's discharge. They have stairs at home and she does not believe pt could ambulate at home safely. She is also concerned about his recovery and safety given his complicated hospital course. Review of Systems Review of Systems: All systems reviewed & are unremarkable except as noted in HPI & below Constitutional: no fever and no chills Respiratory: no cough and no dyspnea (but on suppl. O2) Cardiovascular: no chest pain and no palpitations Gastrointestinal: no abdominal pain, no nausea and no vomiting Musculoskeletal: + back pain improved Physical Exam Physical Exam: Constitutional: elderly male sitting up in bed, WD/WN, vitals as above, in no acute distress, currently on 2L NC Eyes: PERRL, EOMI, conjunctivae normal, anicteric sclerae ENMT: external ear and nose normal, oropharynx normal Neck: trachea midline, no thyromegaly Respiratory: no respiratory distress Auscultation: + mild bibasilar crackles, no wheezes Cardiovascular: RRR, no murmur, no edema Gastrointestinal (Abdomen): Percussion/Palpation: abdomen soft, obese, nontender Musculoskeletal: Surgical dressings present on lumbar decompression surgery area, no surrounding erythema, swelling noted : Gould placed, drains dark yellow urine Skin: no rashes, warm and dry Neurologic: PERRL, EOMI, accommodation nl, no face palsy, no dysarthria, moves extremities spontaneously Psychiatric: Orientation: alert and oriented x 3 Mood: euthymic mood Results & Data Results & Data ([facility]) Vital Signs (Past 12 Hours) Vital Signs Temp Pulse Pulse Resp BP Pulse Ox 05/22/19 03:37 37.1 C 84 16 147/65 H 95 05/22/19 00:00 99 H 05/21/19 23:17 37.3 C 91 H 18 156/68 H 94 05/21/19 19:37 36.9 C 95 H 18 139/61 97 Laboratory Results 05/22/19 05/22/19 05/22/19 Range/Units 07:08 05:27 05:27 WBC 15.38 H (4.8-10.8) K/uL RBC 3.38 L (4.7-6.1) M/uL Hgb 10.7 L (14.0-18.0) g/dL Hct 32.0 L (42-52) % MCV 94.7 (80-100) fL MCH 31.7 (25-34) pg MCHC 33.4 (32-36) g/dL RDW Std Deviation 43.8 (36.4-46.3) fL RDW Coeff of Jono 12.8 (11.5-14.5) % Plt Count 244 (130-400) K/uL MPV 9.3 (7.4-10.4) fL ABG pH ABG pCO2 ABG pO2 ABG HCO3 ABG O2 Saturation ABG Base Excess Donta Test Barometric Pressure Oxygen Given Sodium 135 L (136-145) mmol/L Potassium 3.3 L D (3.5-5.1) mmol/L Chloride 101 (98-107) mmol/L Carbon Dioxide 28 (21-32) mmol/L Anion Gap 6.0 (3-11) BUN 31 H (7-18) mg/dl Creatinine 1.41 H (0.6-1.4) mg/dl Est Cr Clr Drug Dosing 55.4 ml/min Est GFR ( Amer) 57.3 Est GFR (Non-Af Amer) 49.4 BUN/Creatinine Ratio 21.7 H (10-20) Glucose 116 H (70-99) mg/dl POC Glucose 115 H (70-99) mg/dl Calcium 8.7 (8.5-10.1) mg/dl Phosphorus 2.7 (2.5-4.9) mg/dl Magnesium 1.9 (1.8-2.4) mg/dl 05/21/19 05/21/19 05/21/19 Range/Units 23:53 20:16 16:22 WBC (4.8-10.8) K/uL RBC (4.7-6.1) M/uL Hgb (14.0-18.0) g/dL Hct (42-52) % MCV (80-100) fL MCH (25-34) pg MCHC (32-36) g/dL RDW Std Deviation (36.4-46.3) fL RDW Coeff of Jono (11.5-14.5) % Plt Count (130-400) K/uL MPV (7.4-10.4) fL ABG pH ABG pCO2 ABG pO2 ABG HCO3 ABG O2 Saturation ABG Base Excess [place] Test Barometric Pressure Oxygen Given Sodium (136-145) mmol/L Potassium (3.5-5.1) mmol/L Chloride (98-107) mmol/L Carbon Dioxide (21-32) mmol/L Anion Gap (3-11) BUN (7-18) mg/dl Creatinine (0.6-1.4) mg/dl Est Cr Clr Drug Dosing ml/min Est GFR ( Amer) Est GFR (Non-Af Amer) BUN/Creatinine Ratio (10-20) Glucose (70-99) mg/dl POC Glucose 94 84 183 H (70-99) mg/dl Calcium (8.5-10.1) mg/dl Phosphorus (2.5-4.9) mg/dl Magnesium (1.8-2.4) mg/dl 05/21/19 05/21/19 05/19/19 Range/Units 11:02 07:39 09:35 WBC (4.8-10.8) K/uL RBC (4.7-6.1) M/uL Hgb (14.0-18.0) g/dL Hct (42-52) % MCV (80-100) fL MCH (25-34) pg MCHC (32-36) g/dL RDW Std Deviation (36.4-46.3) fL RDW Coeff of Jono (11.5-14.5) % Plt Count (130-400) K/uL MPV (7.4-10.4) fL ABG pH Cancelled ABG pCO2 Cancelled ABG pO2 Cancelled ABG HCO3 Cancelled ABG O2 Saturation Cancelled ABG Base Excess Cancelled [place]a Test Cancelled Barometric Pressure Cancelled Oxygen Given Cancelled Sodium (136-145) mmol/L Potassium (3.5-5.1) mmol/L Chloride (98-107) mmol/L Carbon Dioxide (21-32) mmol/L Anion Gap (3-11) BUN (7-18) mg/dl Creatinine (0.6-1.4) mg/dl Est Cr Clr Drug Dosing ml/min Est GFR ( Amer) Est GFR (Non-Af Amer) BUN/Creatinine Ratio (10-20) Glucose (70-99) mg/dl POC Glucose 148 H 113 H (70-99) mg/dl Calcium (8.5-10.1) mg/dl Phosphorus (2.5-4.9) mg/dl Magnesium (1.8-2.4) mg/dl Medications Administered Current Inpatient Medications Acetaminophen (Tylenol) 650 mg PO Q4H PRN PRN Reason: Mild Pain Stop: 06/20/19 10:45 Albuterol (Ventolin Hfa) 2 puffs INH Q6H PRN PRN Reason: shortness of breath or wheezing Stop: 06/17/19 13:11 Aspirin (Ecotrin Ectab) 81 mg PO [facility] Stop: 06/19/19 09:44 Last Admin: 05/21/19 10:07 Dose: 81 mg Documented by: Atorvastatin Calcium (Lipitor) [facility] [place] Stop: 06/19/19 09:44 Last Admin: 05/21/19 10:08 Dose: 20 mg Documented by: Dextrose (Dextrose 50%) 25 - 50 ml IV UD PRN; Protocol PRN Reason: Hypoglycemia Protocol Stop: 06/17/19 13:58 Diclofenac Sodium (Voltaren 1% Top) 2 gm EXT TID PRN PRN Reason: Pain Stop: 06/05/19 21:35 Last Admin: 05/21/19 22:02 Dose: 2 gm Documented by: Fluticasone/Vilanterol (Breo Ellipta 200/25 Mcg Inh) 1 puffs INH DAILY MONI Stop: 06/18/19 08:59 Last Admin: 05/21/19 10:05 Dose: 1 puffs Documented by: Glucagon (Glucagen) 1 mg SQ UD PRN; Protocol PRN Reason: Hypoglycemia Protocol Stop: 06/17/19 13:58 Glucose (Dex4 Glucose) 4 - 8 tabs PO UD PRN; Protocol PRN Reason: Hypoglycemia Protocol Stop: 06/17/19 13:58 Glucose (Glucose 40%) 15 - 30 gm PO UD PRN; Protocol PRN Reason: Hypoglycemia Protocol Stop: 06/17/19 13:58 Promethazine HCl 12.5 mg/ (Sodium Chloride) 50.5 mls @ 204 mls/hr IV Q6H PRN PRN Reason: Nausea &/or Vomiting Stop: 06/17/19 13:11 Last Infusion: 05/19/19 06:29 Dose: Infused Documented by: Furosemide 80 mg/ Syringe 8 mls @ 4 mls/min IV BID17 [facility] Stop: 06/21/19 08:59 Influenza Virus Vaccine Quadrival (Flu Vaccine, Do Not Administer) 1 ea N/A PRN PRN PRN Reason: Notification Stop: 06/17/19 13:11 Insulin Aspart (Novolog Flexpen) 0 units SC ACHS [facility] Stop: 06/19/19 00:00 Last Admin: 05/21/19 21:04 Dose: Not Given Documented by: Insulin Glargine (Lantus Solostar Pen) 0 units SC BID [facility]; Protocol Stop: 06/19/19 20:59 Last Admin: 05/21/19 21:04 Dose: 16 units Documented by: Ipratropium [place] (Atrovent 0.02% 0.5mg/2.5ml) 0.5 mg INH Q4H PRN PRN Reason: wheeze Stop: 06/19/19 09:44 Levalbuterol HCl (Xopenex 1.25mg/0.5ml Neb) 1.25 mg INH Q4 PRN PRN Reason: wheeze Stop: 06/19/19 11:59 Lidocaine (Lidoderm 5%) 1 patch TD QAM MONI Stop: 06/19/19 08:29 Last Admin: 05/21/19 10:19 Dose: 1 patch Documented by: Magnesium Oxide (Mag-Ox) 200 mg PO BID [facility] Stop: 06/19/19 09:44 Last Admin: 05/21/19 20:19 Dose: 200 mg Documented by: Miscellaneous (Carbohydrates For Hypoglycemia) 15 - 30 gm PO UD PRN PRN Reason: Hypoglycemia Protocol Stop: 06/17/19 13:58 Last Admin: 05/19/19 00:25 Dose: 15 gm Documented by: Miscellaneous (Remove Lidoderm Patch) 1 ea N/A DAILY@2100 [facility] Stop: 06/19/19 20:59 Last Admin: 05/21/19 21:05 Dose: 1 ea Documented by: Miscellaneous Information (Consult Glycemic Management Pharmacy) 1 ea N/A UD PRN PRN Reason: Consult Stop: 06/18/19 09:30 Naloxone HCl (Narcan) 0.1 mg IV Q5M PRN; Protocol PRN Reason: Oversedation/Resp Depression Stop: 06/17/19 13:11 Ondansetron HCl (Zofran) 4 mg IV Q6H PRN PRN Reason: Nausea &/or Vomiting Stop: 06/17/19 13:11 Last Admin: 05/20/19 10:59 Dose: 4 mg Documented by: Pantoprazole Sodium (Protonix) 40 mg PO QAM MONI Stop: 06/20/19 08:59 Last Admin: 05/21/19 10:08 Dose: 40 mg Documented by: Pneumococcal Polyvalent Vaccine (Pneumococcal Vacc, Do Not Administer) 1 ea N/A PRN PRN PRN Reason: Notification Stop: 06/17/19 13:11 Potassium Chloride (Klor-Con M20) 40 meq PO 1300 [facility] Stop: 05/22/19 13:01 Sodium Biphosphate/Sodium Phosphate (Fleet Enema) 132 ml IA ONE PRN PRN Reason: Constipation Stop: 06/17/19 13:11
--- NOTE | 2019-05-22 07:41 | Orthopedic Progress Note ---
Date of Service May 22, 2019 Assessment & Plan (1) Neurogenic claudication due to lumbar spinal stenosis: At this time would encourage him to continue with physical therapy as tolerated. Present on Admission?: Yes Admission and Anticipated Discharge Date Admission Date: May 18, 2019 Subjective Patient resting comfortably Results & Data ([facility]) Vital Signs (Past 12 Hours) Vital Signs Temp Pulse Pulse Pulse Resp BP Pulse Ox 05/22/19 07:38 37.1 C 82 19 176/60 H 92 05/22/19 03:37 37.1 C 84 16 147/65 H 95 05/22/19 00:00 99 H 05/21/19 23:17 37.3 C 91 H 18 156/68 H 94
[2019-05-22] MEDS ORDERED: FUROSEMIDE 80 MG in SYRINGE 0 ML IV SCH (09:00)
[2019-05-22] MEDS: INSULIN ASPART 100 UNITS/ML 3 ML PEN SC SCH ×4 (09:10→21:27)
[2019-05-22] MEDS: FLUTICASONE/VILANTEROL 200/25MCG 14 PUFFS/INHALER INH SCH (09:13)
[2019-05-22] MEDS: ASPIRIN 81 MG ECTAB PO SCH (09:14)
[2019-05-22] MEDS: MAGNESIUM OXIDE 400 MG TAB PO SCH ×2 (09:14→21:27)
[2019-05-22] MEDS: PANTOprazole 40 MG TAB PO SCH (09:14)
[2019-05-22] MEDS: ATORVASTATIN 20 MG TAB PO SCH (09:14)
[2019-05-22] MEDS: LIDOCAINE 5% 1 PATCH TD SCH ×2 (09:15→10:20)
[2019-05-22] MEDS: INSULIN GLARGINE SOLOSTAR 100 UNITS/ML 3 ML PEN SC SCH ×2 (09:33→21:27)
--- NOTE | 2019-05-22 09:40 | Pharmacy Report ---
Pharmacy Glycemic Short Note 2 - Date of Service May 22, 2019 - Glycemic Short BSG Results (Last 24 hours): 05/21/19 05/21/19 05/21/19 11:02 16:22 20:16 Glucose POC Glucose 148 H 183 H 84 05/21/19 05/22/19 05/22/19 23:53 05:27 07:08 Glucose 116 H POC Glucose 94 115 H OUTPATIENT ANTIDIABETIC REGIMEN: * Basaglar 64 units SQ AM * Metformin 1000 mg PO BIDM * Januvia 100 mg PO Daily * A1c = 8.3% on 05/07/2019 ASSESSMENT: 05/22/19: * POD #4, renal function improving, unlikely to require HD today * BSGs ranging 84 - 183 mg/dL yesterday, receive 49 units of insulin total, 36 units basal * Fasting BSG this AM was 115 mg/dL * RN called to say patient is refusing breakfast this AM, instructed her to give 16 units of Lantus * Will adjust PM Lantus dose if patient continues to have poor appetite * Patient dropped from 183 mg/dL at dinner to 84 mg/dL prior to bed * Will loosen correction factor and carb ratio today 05/21/19: * 73 yo M who is POD #3 s/p L4-S1 lumbar decompression and fusion * BSGs ranging 134 - 181 mg/dL yesterday * Received 49 units of insulin total, 44 units basal * Patient not scheduled for dialysis today * Fasting BSG this AM was 113 mg/dL * Correctional/Prandial insulin may need adjusted secondary to high post- prandial BSGg PLAN FOR INPATIENT GLYCEMIC CONTROL: * Hold outpatient oral diabetes medications * Basal insulin * Lantus 16 units SQ BID (for BSG < 110 mg/dL) * Lantus 20 units SQ BID (for BSG 110 mg/dL or above) * Bolus insulin * NovoLog per scale ACHS or Q6hrs while NPO * Goal Range: Low 110 mg/dL - High 140 mg/dL * LOOSENED: Correction Factor: 25 mg/dL/unit * LOOSENED: Nutritional / Prandial insulin per carb ratio of 1 unit per 8 grams CHO consumed PLAN FOR DISCHARGE: * Recommend 15% reduction in Basaglar outpatient dose secondary to hypoglycemia upon admission. 15% reduction would result in Basaglar 54 units SQ AM. * Continue Metformin and Januvia.
--- NOTE | 2019-05-22 10:46 | Nephrology Progress Note ---
Date of Service May 22, 2019 Assessment & Plan (1) Acute on chronic renal failure: Patient with acute renal failure likely due to ischemic ATN in setting of lumbar fusion and postoperative NSAID use. Baseline creatinine of 1.5. Creatinine peak 2.2. Due to hyperkalemia and somnolence, Patient had urgent dialysis 05/18 for 2 hours on a 1K bath and target UF of 1 L. Patient had another 2 hours of isolated ultrafiltration 05/19 for net UF of 2.5 L. Patient is recovering renal function. No need for further HD -Remove right IJ catheter -Continue to monitor renal function with daily BMP. -Avoid nephrotoxins such as NSAIDs and contrast unless lifesaving (2) Hyperkalemia: Due to acute renal failure. Improved after dialysis. Potassium is now low in setting of diuresis. Agree with the potassium chloride supplementation today (3) Hypoxia: Due to pulmonary edema based on the chest x-ray. Improved with the diuresis. Patient was net -3 L yesterday. We will stop Lasix today. Continue to monitor respiratory status and diuresis as needed. (4) Status post lumbar surgery: Patient is postoperative day 4. Management per Dr. Garcia. Avoid morphine or oxycodone for pain control. Fentanyl and Dilaudid are acceptable to use in setting of acute renal failure. Admission and Anticipated Discharge Date Admission Date: May 18, 2019 Subjective Patient feels better today and eager to be discharged. He complains of back pain. He is complaining of pain for Gould catheter. He diuresed well with Lasix yesterday. No shortness of breath today Review of Systems Review of Systems: All systems reviewed & are unremarkable except as noted in HPI & below Physical Exam Physical Exam: General exam: Appears comfortable, no acute distress HEENT: Pupils are equal and reactive to light Neck: No JVD, neck is supple trachea is midline Respiratory system: Clear breath sounds bilaterally. Gastrointestinal: Abdomen is soft, non distended, non tender, bowel sounds are present CVS: Regular rate and rhythm. No murmurs, rubs or gallops Musculoskeletal: No joint or muscle tenderness Extremities: Non tender, no edema, peripheral pulses are present Neuro: Oriented, no tremors, no focal neurological deficits Skin: No rashes Results & Data ([facility]) Vital Signs (Past 12 Hours) Vital Signs Temp Pulse Pulse Pulse Resp BP Pulse Ox 05/22/19 07:38 37.1 C 82 19 176/60 H 92 05/22/19 03:37 37.1 C 84 16 147/65 H 95 05/22/19 00:00 99 H 05/21/19 23:17 37.3 C 91 H 18 156/68 H 94 Laboratory Results 05/22/19 05:27 05/22/19 05/22/19 05:27 05:27 WBC 15.38 H RBC 3.38 L MCV 94.7 MCH 31.7 MCHC 33.4 RDW Std Deviation 43.8 RDW Coeff of Jono 12.8 Plt Count 244 MPV 9.3 Phosphorus 2.7
--- NOTE | 2019-05-22 11:19 | Ultrasound Report ---
RENAL ULTRASOUND HISTORY: prior anuria, r/o obstruction COMPARISON: None. FINDINGS: Right kidney: 10.4 cm. No hydronephrosis. Normal corticomedullary differentiation and cortical thickn ess. Left kidney: 11.6 cm. No hydronephrosis. Normal corticomedullary differentiation and cortical thickne ss. Bladder: Trace urine within the bladder. The bladder is mostly decompressed by Gould catheter. IMPRESSION: No hydronephrosis. The bladder is decompressed by a Gould catheter. ACT 112: Negative or not required by law. Electronically signed by: Ed Rodríguez M.D. 05/22/2019 11:17 AM
[2019-05-22] MEDS ORDERED: POTASSIUM CHLORIDE 20 MEQ TABCR PO SCH (13:00)
[2019-05-22] MEDS: ACETAMINOPHEN 325 MG TAB PO PRN (16:40)
[2019-05-23 06:38] LABS: Creatinine Clr Calc Pharmacy 62.1 ml/min; Est GFR (African American) 66.9; Est GFR (Non-African American) 57.7; Potassium 3.8 mmol/L (3.5-5.1)
--- NOTE | 2019-05-23 08:31 | Hospitalist Progress Note ---
Date of Service May 23, 2019 Assessment & Plan (1) Acute on chronic renal failure: Renal failure with underlying CKD stage III Acute renal failure/ ATN with underlying CKD stage III Baseline creatinine 1.5/as per preop lab work on 05/07/2019 After surgery, anuric/oliguric renal failure, elevated creatinine 2.21 Patient developed hyperkalemia volume overload, overtly uremic with metabolic encephalopathy/confusion Appreciate input from nephrology- Had emergent dialysis on 05/19/2019 (1L removed) then again HD on 05/19 (2.5 L removed) Gave 80 mg IV lasix on (05/20), no HD - No more plan for HD, diuresis only as needed - ok to remove R IJ line Electrolytes improved, hyperkalemia/metabolic acidosis resolved Follow BMP daily, continue telemetry monitoring Pt then hypokalemic (from diuretics), K replaced, will cont. to monitor Acute CHF with diastolic dysfunction/HFp EF: Patient developed florid volume overload, Due to developed ATN, with oliguric renal failure, Given 80 mg IV Lasix initially, with minimum urine output Status post emergent dialysis on 05/18 Echo shows: No wall motion abnormality, normal ejection fraction, grade 1 diastolic dysfunction (2) Hyperkalemia: Resolved Due to acute renal failure/poor urine output Losartan discontinued Status post dialysis, with normalization of potassium level Pt then hypokalemic (2/2 diuretic use), K replaced, will cont. to monitor (3) Hypoxia: Possible secondary to volume overload,renal failure/ATN, decompensated CHF with diastolic dysfunction, in the setting of interstitial lung disease Was treated with BiPAP ABG showed improvement of hypoxemia (05/19) Respiratory status continues to improve after emergent dialysis and repeat HD Chest x-ray on 05/19 shows improvement of pulmonary congestion Pulmonology team consulted, appreciate input - switched pt from HF to NC, 2-3LPM - currently pt on RA, breathing comfortably, not requiring suppl. O2 (4) Status post lumbar surgery: Day #5 of lumbar spinal decompression surgery by Dr. Garcia No postoperative complication noted, surgical site seems to be healing, no sign of infection Spinal ortho was notified to evaluate patient as experiencing severe/stabbing pain on the right buttock area on 05/19 - believed to be trochanteric bursitis, no current complaints Anemia - acute blood loss/ post op anemia - stable Hgb - no s/s - cont. to monitor (5) CAD (coronary artery disease): History of coronary artery disease, status post PTCA in 2015 No complaint of chest pain dyspnea on exertion, Echo shows no wall motion abnormality, grade 1 diastolic dysfunction Continue outpatient meds Imdur, beta-sharona, aspirin CODE STATUS: Full code DVT prophylaxis: SCD and teds Pt's updated over the phone Admission and Anticipated Discharge Date Admission Date: May 18, 2019 Subjective Patient is lying in bed, complains of back pain, during my interview, he needs to switch and lay on the other side, due to back discomfort. He otherwise denies any chest pain, shortness of breath, fevers, chills, abdominal pain, nausea or vomiting. Discussed that his renal function has much improved, and the fact that he does not need any more supplemental oxygen is reassuring. Discussed that he will not need anymore dialysis, and dialysis catheter will be removed. Gould catheter was removed yesterday and renal ultrasound was also performed yesterday, no obstruction or hydronephrosis noted. Patient has been voiding after Gould removed. Patient had accident earlier though, voided on the floor, as he was not able to make it/get help in time. PT/OT Review of Systems Review of Systems: All systems reviewed & are unremarkable except as noted in HPI & below Constitutional: no fever and no chills Respiratory: no cough and no dyspnea Cardiovascular: no chest pain, no palpitations and no edema Gastrointestinal: no abdominal pain, no nausea and no vomiting Musculoskeletal: + back pain improved Physical Exam Physical Exam: Constitutional: elderly male sitting up in bed, WD/WN, vitals as above, in no acute distress, currently on RA breathing comfortably Eyes: PERRL, EOMI, conjunctivae normal, anicteric sclerae ENMT: external ear and nose normal, oropharynx normal Neck: trachea midline, no thyromegaly Respiratory: no respiratory distress Auscultation: CTAB, no rhonchi, crac kles, or wheezes Cardiovascular: RRR, no murmur, no edema Gastrointestinal (Abdomen): Percussion/Palpation: abdomen soft, obese, nontender Musculoskeletal: Surgical dressings present on lumbar decompression surgery area, no surrounding erythema, swelling noted (: Gould removed on 05/21) Skin: no rashes, warm and dry Neurologic: PERRL, EOMI, accommodation nl, no face palsy, no dysarthria, moves extremities spontaneously Psychiatric: Orientation: alert and oriented x 3 Mood: euthymic mood Results & Data Results & Data ([facility]) Vital Signs (Past 12 Hours) Vital Signs Temp Pulse Pulse Pulse Resp BP Pulse Ox 05/23/19 07:10 36.6 C 88 17 160/76 H 92 05/23/19 03:33 36.5 C 88 16 160/68 H 93 05/23/19 00:00 77 05/22/19 23:59 36.5 C 90 18 164/67 H 93 Laboratory Results 05/23/19 05/23/19 05/22/19 Range/Units 07:08 05:30 20:19 Sodium 137 (136-145) mmol/L Potassium 3.8 D (3.5-5.1) mmol/L Chloride 106 (98-107) mmol/L Carbon Dioxide 26 (21-32) mmol/L Anion Gap 5.0 (3-11) BUN 28 H (7-18) mg/dl Creatinine 1.24 (0.6-1.4) mg/dl Est Cr Clr Drug Dosing 62.1 ml/min Est GFR ( Amer) 66.9 Est GFR (Non-Af Amer) 57.7 BUN/Creatinine Ratio 23.0 H (10-20) Glucose 106 H (70-99) mg/dl POC Glucose 106 H 130 H (70-99) mg/dl Calcium 9.0 (8.5-10.1) mg/dl 05/22/19 05/22/19 Range/Units 16:41 11:10 Sodium (136-145) mmol/L Potassium (3.5-5.1) mmol/L Chloride (98-107) mmol/L Carbon Dioxide (21-32) mmol/L Anion Gap (3-11) BUN (7-18) mg/dl Creatinine (0.6-1.4) mg/dl Est Cr Clr Drug Dosing ml/min Est GFR ( Amer) Est GFR (Non-Af Amer) BUN/Creatinine Ratio (10-20) Glucose (70-99) mg/dl POC Glucose 156 H 153 H (70-99) mg/dl Calcium (8.5-10.1) mg/dl Medications Administered Current Inpatient Medications Acetaminophen (Tylenol) 650 mg PO Q4H PRN PRN Reason: Mild Pain Stop: 06/20/19 10:45 Last Admin: 05/22/19 16:40 Dose: 650 mg Documented by: Albuterol (Ventolin Hfa) 2 puffs INH Q6H PRN PRN Reason: shortness of breath or wheezing Stop: 06/17/19 13:11 Aspirin (Ecotrin Ectab) 81 mg PO QAM [facility] Stop: 06/19/19 09:44 Last Admin: 05/22/19 09:14 Dose: 81 mg Documented by: Atorvastatin Calcium (Lipitor) 20 mg PO QAM [facility] Stop: 06/19/19 09:44 Last Admin: 05/22/19 09:14 Dose: 20 mg Documented by: Dextrose (Dextrose 50%) 25 - 50 ml IV UD PRN; Protocol PRN Reason: Hypoglycemia Protocol Stop: 06/17/19 13:58 Diclofenac Sodium (Voltaren 1% Top) 2 gm EXT TID PRN PRN Reason: Pain Stop: 06/05/19 21:35 Last Admin: 05/21/19 22:02 Dose: 2 gm Documented by: Fluticasone/Vilanterol (Breo Ellipta 200/25 Mcg Inh) 1 puffs INH DAILY [facility] Stop: 06/18/19 08:59 Last Admin: 05/22/19 09:13 Dose: 1 puffs Documented by: Glucagon (Glucagen) 1 mg SQ UD PRN; Protocol PRN Reason: Hypoglycemia Protocol Stop: 06/17/19 13:58 Glucose (Dex4 Glucose) 4 - 8 tabs PO UD PRN; Protocol PRN Reason: Hypoglycemia Protocol Stop: 06/17/19 13:58 Glucose (Glucose 40%) 15 - 30 gm PO UD PRN; Protocol PRN Reason: Hypoglycemia Protocol Stop: 06/17/19 13:58 Promethazine HCl 12.5 mg/ (Sodium Chloride) 50.5 mls @ 204 mls/hr IV Q6H PRN PRN Reason: Nausea &/or Vomiting Stop: 06/17/19 13:11 Last Infusion: 05/19/19 06:29 Dose: Infused Documented by: Influenza Virus Vaccine Quadrival (Flu Vaccine, Do Not Administer) 1 ea N/A PRN PRN PRN Reason: Notification Stop: 06/17/19 13:11 Insulin Aspart (Novolog Flexpen) 0 units SC ACHS [facility] Stop: 06/19/19 00:00 Last Admin: 05/22/19 21:27 Dose: Not Given Documented by: Insulin Glargine (Lantus Solostar Pen) 15 units SC BID [facility] Stop: 06/22/19 08:59 Ipratropium Schurz (Atrovent 0.02% 0.5mg/2.5ml) 0.5 mg INH Q4H PRN PRN Reason: wheeze Stop: 06/19/19 09:44 Levalbuterol HCl (Xopenex 1.25mg/0.5ml Neb) 1.25 mg INH Q4 PRN PRN Reason: wheeze Stop: 06/19/19 11:59 Lidocaine (Lidoderm 5%) 1 patch TD QAM [facility] Stop: 06/19/19 08:29 Last Admin: 05/22/19 09:15 Dose: 1 patch Documented by: Lidocaine (Lidoderm 5%) 1 patch TD QAM [facility] Stop: 06/21/19 09:44 Last Admin: 05/22/19 10:20 Dose: 1 patch Documented by: Magnesium Oxide (Mag-Ox) 200 mg PO BID [facility] Stop: 06/19/19 09:44 Last Admin: 05/22/19 21:27 Dose: 200 mg Documented by: Miscellaneous (Carbohydrates For Hypoglycemia) 15 - 30 gm PO UD PRN PRN Reason: Hypoglycemia Protocol Stop: 06/17/19 13:58 Last Admin: 05/19/19 00:25 Dose: 15 gm Documented by: Miscellaneous (Remove Lidoderm Patch) 1 ea N/A DAILY@2099 [facility] Stop: 06/19/19 20:59 Last Admin: 05/22/19 21:28 Dose: 1 ea Documented by: Miscellaneous (Remove Lidoderm Patch) 1 ea N/A DAILY@2099 [facility] Stop: 06/21/19 20:59 Last Admin: 05/22/19 21:28 Dose: 1 ea Documented by: Miscellaneous Information (Consult Glycemic Management Pharmacy) 1 ea N/A UD PRN PRN Reason: Consult Stop: 06/18/19 09:30 Naloxone HCl (Narcan) 0.1 mg IV Q5M PRN; Protocol PRN Reason: Oversedation/Resp Depression Stop: 06/17/19 13:11 Ondansetron HCl (Zofran) 4 mg IV Q6H PRN PRN Reason: Nausea &/or Vomiting Stop: 06/17/19 13:11 Last Admin: 05/20/19 10:59 Dose: 4 mg Documented by: Pantoprazole Sodium (Protonix) [facility] [place]: 06/20/19 08:59 Last Admin: 05/22/19 09:14 Dose: 40 mg Documented by: Pneumococcal Polyvalent Vaccine (Pneumococcal Vacc, Do Not Administer) 1 ea N/A PRN PRN PRN Reason: Notification Stop: 06/17/19 13:11 Sodium Biphosphate/Sodium Phosphate (Fleet Enema) 132 ml OR ONE PRN PRN Reason: Constipation Stop: 06/17/19 13:11
--- NOTE | 2019-05-23 08:59 | Pharmacy Report ---
Glycemic Control Progress Note - Date of Service May 23, 2019 - Scope Glycemic Pharmacist consulted for glycemic control to write orders per [facility] inpatient glycemic control protocol. - Objective Accuchecks BSG(last 24 hours):: 05/22/19 05/22/19 05/22/19 11:10 16:41 20:19 Glucose POC Glucose 153 H 156 H 130 H 05/23/19 05/23/19 05:30 07:08 Glucose 106 H POC Glucose 106 H HbA1c:: Hemoglobin A1c 8.3 % (4.5-5.6) H 05/07/19 10:58 - Recent Pertinent Medications The patient is currently receiving: * Basal insulin: Lantus 16-20 units every 12 hours * Correctional Insulin: Novolog Correction per scale ACHS Goal Range: Low 110 mg/dL - High 140 mg/dL Correction Factor: 25 mg/dL/unit * Prandial insulin: Per carb ratio of 1 unit per 8 grams CHO consumed - Outpatient Anti-Diabetic Meds Basaglar 64 units SQ qAM metformin 1000 mg PO BID Januvia 100 mg PO daily - Assessment & Plan ASSESSMENT: * See progress note from 05/19/2019 for more background info, in short: * Pt receiving SQ basal bolus insulin regimen for hyperglycemia secondary to baseline DM (outpatient regimen on hold). * Patient is currently receiving an average of 42 units of insulin per day * 36 units of basal insulin * 6 units of prandial/correctional insulin * BSGs ranging 115 - 156 mg/dl over the past 24hrs * Changes needed to insulin regimen: * AM Fasting BSG = 106 mg/dl. This is in goal range for patient based on inpatient targets and co-morbidities. Fasting blood sugars have been trending downwards -- reduce basal by 20% to 15 units SQ BID. Work towards once daily dosing in the morning - give 15 units at dinner tonight. Then Give 30 units tomorrow at lunch and on Saturday give 30 units in the morning. * Post-prandial BSGs are in range therefore no changes needed to CF/CR. * Total daily dose = ~40 units. Reduced insulin appropriately. PLAN FOR INPATIENT GLYCEMIC CONTROL: * Decreasing Lantus to 15 units SQ BID * Continuing correction factor of 25 mg/dl/unit * Continuing carb ratio of 1 unit per 8 grams CHO consumed * Continuing goal range of Low 110 mg/dL - High 140 mg/dL RECOMMENDATIONS FOR DISCHARGE: * Continue Januvia and metformin as long as patient is not at risk for JAVED at home. * Recommend reduction in Basaglar dose ... could do 40 units daily. * Recommend starting Novolog or Humalog with largest meal of the day to offset extremely basal heavy regimen. Thank you.
[2019-05-23] MEDS ORDERED: INSULIN GLARGINE SOLOSTAR 100 UNITS/ML 3 ML PEN SC SCH (09:00)
--- NOTE | 2019-05-23 10:10 | Procedure Note ---
Procedure Note Date of Service May 23, 2019 Asked by hospitalist to remove hemodialysis access. Discussed case. Patient is no longer in need of dialysis. Presented to the floor. The patient was ambulating to the chair. He was placed sitting upright in the chair. The dressing was removed. Stitches were cut. The dialysis catheter was removed. The catheter was completely intact. I held pressure for 5 minutes and applied an occlusive dressing. No evidence of bleeding. He tolerated the procedure well with no complications. Please call if we can be of additional assistance Coding
--- NOTE | 2019-05-23 10:23 | Orthopedic Progress Note ---
Date of Service May 23, 2019 Assessment & Plan (1) Neurogenic claudication due to lumbar spinal stenosis: This time I will continue to encourage him to ambulate as tolerated. Encourage him to eat all his meals in a chair versus the bed. Present on Admission?: Yes Admission and Anticipated Discharge Date Admission Date: May 18, 2019 Subjective Patient is in the chair at the bedside. Is complaining of some back pain. Minimal leg pain. Physical Exam Physical Exam: Patient has reasonable strength testing. He is tenderness palpation of the lumbar spine. Results & Data ([facility]) Vital Signs (Past 12 Hours) Vital Signs Temp Pulse Pulse Pulse Resp BP Pulse Ox 05/23/19 07:10 36.6 C 88 17 160/76 H 92 05/23/19 03:33 36.5 C 88 16 160/68 H 93 05/23/19 00:00 77 05/22/19 23:59 36.5 C 90 18 164/67 H 93
[2019-05-23] MEDS: INSULIN ASPART 100 UNITS/ML 3 ML PEN SC SCH ×4 (11:21→21:11)
[2019-05-23] MEDS: MAGNESIUM OXIDE 400 MG TAB PO SCH ×2 (11:25→21:09)
[2019-05-23] MEDS: FLUTICASONE/VILANTEROL 200/25MCG 14 PUFFS/INHALER INH SCH (11:25)
[2019-05-23] MEDS: ATORVASTATIN 20 MG TAB PO SCH (11:26)
[2019-05-23] MEDS: ASPIRIN 81 MG ECTAB PO SCH (11:26)
[2019-05-23] MEDS: LIDOCAINE 5% 1 PATCH TD SCH ×2 (11:26→11:27)
[2019-05-23] MEDS: INSULIN GLARGINE SOLOSTAR 100 UNITS/ML 3 ML PEN SC SCH (11:27)
[2019-05-23] MEDS: ACETAMINOPHEN 325 MG TAB PO PRN (21:07)
[2019-05-24] MEDS: ACETAMINOPHEN 325 MG TAB PO PRN ×3 (05:54→21:07)
[2019-05-24 05:59] LABS: Hematocrit (blood only) 35.5 % (42-52); Hemoglobin 12.1 g/dL (14.0-18.0); Mean Corpuscular Hemoglobin 31.7 pg (25-34); Mean Corpuscular Hgb Conc 34.1 g/dL (32-36); Mean Corpuscular Volume 92.9 fL (80-100); Mean Platelet Volume 9.1 fL (7.4-10.4); Platelet Count 294 K/uL (130-400); RDW Coefficient of Variation 12.7 % (11.5-14.5); RDW Standard Deviation 43.1 fL (36.4-46.3); Red Blood Count 3.82 M/uL (4.7-6.1); White Blood Count 13.92 K/uL (4.8-10.8)
[2019-05-24 06:28] LABS: Calcium 9.3 mg/dl (8.5-10.1); Creatinine Clr Calc Pharmacy 53.1 ml/min; Est GFR (African American) 60.9; Est GFR (Non-African American) 52.6; Magnesium 2.2 mg/dl (1.8-2.4); Potassium 3.6 mmol/L (3.5-5.1)
[2019-05-24] MEDS ORDERED: POTASSIUM CHLORIDE 20 MEQ TABCR PO STA (07:32)
[2019-05-24] MEDS: FLUTICASONE/VILANTEROL 200/25MCG 14 PUFFS/INHALER INH SCH (08:44)
[2019-05-24] MEDS: LIDOCAINE 5% 1 PATCH TD SCH ×2 (08:45→08:46)
[2019-05-24] MEDS: PANTOprazole 40 MG TAB PO SCH (08:45)
[2019-05-24] MEDS: ASPIRIN 81 MG ECTAB PO SCH (08:45)
[2019-05-24] MEDS: MAGNESIUM OXIDE 400 MG TAB PO SCH ×2 (08:45→21:08)
[2019-05-24] MEDS: ATORVASTATIN 20 MG TAB PO SCH (08:45)
[2019-05-24] MEDS: INSULIN GLARGINE SOLOSTAR 100 UNITS/ML 3 ML PEN SC SCH (08:46)
[2019-05-24] MEDS: INSULIN ASPART 100 UNITS/ML 3 ML PEN SC SCH ×4 (08:47→21:09)
--- NOTE | 2019-05-24 10:54 | Orthopedic Progress Note ---
Date of Service May 24, 2019 Assessment & Plan (1) Neurogenic claudication due to lumbar spinal stenosis: This time we will encourage bed to chair transfers to tolerance and ambulation as tolerated. Present on Admission?: Yes Admission and Anticipated Discharge Date Admission Date: May 18, 2019 Subjective Back pain controlled leg pain improving. Physical Exam Physical Exam: Patient is neurologically intact. Results & Data ([facility]) Vital Signs (Past 12 Hours) Vital Signs Temp Pulse Pulse Resp BP BP Pulse Ox 05/24/19 07:17 36.5 C 81 18 162/57 H 96 05/24/19 04:51 36.9 C 88 17 169/81 H 95 05/23/19 23:34 36.9 C 89 16 146/90 H 96
--- NOTE | 2019-05-24 11:31 | Pharmacy Report ---
PHA: Glycemic Control AP - Date of Service May 24, 2019 - Assessment & Plan Current Regimen * Lantus 30 units daily * Novolog CF 25 CR 8 Goal Range 110-140 mg/dL ASSESSMENT: * See progress note from 05/19/2019 for more background info, in short: * Pt receiving SQ basal bolus insulin regimen for hyperglycemia secondary to baseline DM (outpatient regimen on hold). Patient s/p removal of dialysis catheter yesterday 05/25/2019. * Patient is currently receiving an average of 36 units of insulin per day * 30 units of basal insulin * 6 units of prandial/correctional insulin * BSGs ranging 106 - 154 mg/dl over the past 24hrs * Changes needed to insulin regimen: * AM Fasting BSG = 128 mg/dl. This is in goal range for patient based on inpatient targets and co-morbidities. Therefore Basal insulin will be continued at Lantus 30 units daily. * Post-prandial BSGs are in range therefore no changes needed to CF/CR. * Total daily dose = ~35-40 units. PLAN FOR INPATIENT GLYCEMIC CONTROL: * Continuing Lantus 30 units SQ daily * Continuing correction factor of 25 mg/dl/unit * Continuing carb ratio of 1 unit per 8 grams CHO consumed * Continuing goal range of Low 110 mg/dL - High 140 mg/dL RECOMMENDATIONS FOR DISCHARGE: * see note from 05/23/2019
[2019-05-24] MEDS: CLOPIDOGREL BISULFATE 75 MG TAB PO SCH (11:53)
[2019-05-24] MEDS ORDERED: INSULIN GLARGINE SOLOSTAR 100 UNITS/ML 3 ML PEN SC SCH (12:00)
--- NOTE | 2019-05-24 17:15 | Hospitalist Progress Note ---
Date of Service May 24, 2019 Assessment & Plan (1) Acute on chronic renal failure: Renal failure with underlying CKD stage III Acute renal failure/ ATN with underlying CKD stage III Baseline creatinine 1.5/as per preop lab work on 05/07/2019 After surgery, anuric/oliguric renal failure, elevated creatinine 2.21 Patient developed hyperkalemia volume overload, overtly uremic with metabolic encephalopathy/confusion Appreciate input from nephrology- Had emergent dialysis on 05/19/2019 (1L removed) then again HD on 05/19 (2.5 L removed) Gave 80 mg IV lasix on (05/20), no HD - No more plan for HD, diuresis only as needed - R IJ catheter removed Electrolytes improved, hyperkalemia/metabolic acidosis resolved Follow BMP daily, continue telemetry monitoring Pt then hypokalemic (from diuretics), K replaced, will cont. to monitor Acute CHF with diastolic dysfunction/HFp EF: Patient developed florid volume overload, Due to developed ATN, with oliguric renal failure, Given 80 mg IV Lasix initially, with minimum urine output Status post emergent dialysis on 05/18 Echo shows: No wall motion abnormality, normal ejection fraction, grade 1 diastolic dysfunction (2) Hyperkalemia: Resolved Due to acute renal failure/poor urine output Losartan discontinued Status post dialysis, with normalization of potassium level Pt then hypokalemic (2/2 diuretic use), K replaced, will cont. to monitor (3) Hypoxia: Possible secondary to volume overload,renal failure/ATN, decompensated CHF with diastolic dysfunction, in the setting of interstitial lung disease Was treated with BiPAP ABG showed improvement of hypoxemia (05/19) Respiratory status continues to improve after emergent dialysis and repeat HD Chest x-ray on 05/19 shows improvement of pulmonary congestion Pulmonology team consulted, appreciate input - switched pt from HF to NC, 2-3LPM - currently pt on RA, breathing comfortably, not requiring suppl. O2 (4) Status post lumbar surgery: Day #6 of lumbar spinal decompression surgery by Dr. Garcia No postoperative complication noted, surgical site seems to be healing, no sign of infection Spinal ortho was notified to evaluate patient as experiencing severe/stabbing pain on the right buttock area on 05/19 - believed to be trochanteric bursitis, no current complaints Anemia - acute blood loss/ post op anemia - stable Hgb - no s/s - cont. to monitor JAY - cont. CPAP (5) CAD (coronary artery disease): History of coronary artery disease, status post PTCA in 2015 No complaint of chest pain dyspnea on exertion, Echo shows no wall motion abnormality, grade 1 diastolic dysfunction Continue outpatient meds Imdur, beta-sharona, aspirin CODE STATUS: Full code DVT prophylaxis: SCD and teds Pt's appreciates updates over the phone Admission and Anticipated Discharge Date Admission Date: May 18, 2019 Subjective Pt is lying in bed in NAD. Breathing comfortably on room air. Denies any fever, chills, chest pain, shortness of breath, abd. pain, nausea or vomiting. He has abrasion on his nose (nasal bridge), poss. from CPAP/BiPAP (will need to make sure there's padding for that when using the machine), communicated this with RT Updated pt's over the phone. Also, she reported that [facility] accepted the pt and he could possibly go there on Saturday. Will check w/ CM on Saturday. Review of Systems Review of Systems: All systems reviewed & are unremarkable except as noted in HPI & below Constitutional: no fever and no chills Respiratory: no cough and no dyspnea Cardiovascular: no chest pain and no palpitations Gastrointestinal: no abdominal pain, no nausea and no vomiting Musculoskeletal: + back pain (improved) Physical Exam Physical Exam: Constitutional: elderly male sitting up in bed, WD/WN, vitals as above, in no acute distress, currently on RA breathing comfortably Eyes: PERRL, EOMI, conjunctivae normal, anicteric sclerae ENMT: external ear and nose normal, oropharynx normal Neck: trachea midline, no thyromegaly, R IJ cath. removed Respiratory: no respiratory distress Auscultation: CTAB, no rhonchi, crackles, or wheezes Cardiovascular: RRR, no murmur, no edema Gastrointestinal (Abdomen): Percussion/Palpation: abdomen soft, obese, nontender Musculoskeletal: Surgical dressings present on lumbar decompression surgery area, no surrounding erythema, swelling noted (: Gould removed on 05/21) Skin: no rashes, warm and dry Neurologic: PERRL, EOMI, accommodation nl, no face palsy, no dysarthria, moves extremities spontaneously Psychiatric: Orientation: alert and oriented x 3 Mood: euthymic mood Results & Data Results & Data ([facility]) Vital Signs (Past 12 Hours) Vital Signs Temp Pulse Pulse Resp BP Pulse Ox 05/24/19 15:45 36.7 C 79 16 173/63 H 98 05/24/19 12:20 36.4 C L 91 H 18 166/78 H 97 05/24/19 11:17 36.9 C 84 18 165/74 H 94 05/24/19 07:17 36.5 C 81 18 162/57 H 96 Laboratory Results 05/24/19 05/24/19 05/24/19 Range/Units 11:15 07:15 05:45 WBC 13.92 H (4.8-10.8) K/uL RBC 3.82 L (4.7-6.1) M/uL Hgb 12.1 L (14.0-18.0) g/dL Hct 35.5 L (42-52) % MCV 92.9 (80-100) fL MCH 31.7 (25-34) pg MCHC 34.1 (32-36) g/dL RDW Std Deviation 43.1 (36.4-46.3) fL RDW Coeff of Jono 12.7 (11.5-14.5) % Plt Count 294 (130-400) K/uL MPV 9.1 (7.4-10.4) fL Sodium (136-145) mmol/L Potassium (3.5-5.1) mmol/L Chloride (98-107) mmol/L Carbon Dioxide (21-32) mmol/L Anion Gap (3-11) BUN (7-18) mg/dl Creatinine (0.6-1.4) mg/dl Est Cr Clr Drug Dosing ml/min Est GFR ( Amer) Est GFR (Non-Af Amer) BUN/Creatinine Ratio (10-20) Glucose (70-99) mg/dl POC Glucose 138 H 136 H (70-99) mg/dl Calcium (8.5-10.1) mg/dl Magnesium (1.8-2.4) mg/dl 05/24/19 05/23/19 Range/Units 05:45 20:15 WBC (4.8-10.8) K/uL RBC (4.7-6.1) M/uL Hgb (14.0-18.0) g/dL Hct (42-52) % MCV (80-100) fL MCH (25-34) pg MCHC (32-36) g/dL RDW Std Deviation (36.4-46.3) fL RDW Coeff of Jono (11.5-14.5) % Plt Count (130-400) K/uL MPV (7.4-10.4) fL Sodium 136 (136-145) mmol/L Potassium 3.6 (3.5-5.1) mmol/L Chloride 104 (98-107) mmol/L Carbon Dioxide 26 (21-32) mmol/L Anion Gap 6.0 (3-11) BUN 32 H (7-18) mg/dl Creatinine 1.34 (0.6-1.4) mg/dl Est Cr Clr Drug Dosing 53.1 ml/min Est GFR ( Amer) 60.9 Est GFR (Non-Af Amer) 52.6 BUN/Creatinine Ratio 24.0 H (10-20) Glucose 122 H (70-99) mg/dl POC Glucose 132 H (70-99) mg/dl Calcium 9.3 (8.5-10.1) mg/dl Magnesium 2.2 (1.8-2.4) mg/dl Medications Administered Current Inpatient Medications Acetaminophen (Tylenol) 650 mg PO Q4H PRN PRN Reason: Mild Pain Stop: 06/20/19 10:45 Last Admin: 05/24/19 15:20 Dose: 650 mg Documented by: Albuterol (Ventolin Hfa) 2 puffs INH Q6H PRN PRN Reason: shortness of breath or wheezing Stop: 06/17/19 13:11 Aspirin (Ecotrin Ectab) 81 mg PO [facility] Stop: 06/19/19 09:44 Last Admin: 05/24/19 08:45 Dose: 81 mg Documented by: Atorvastatin Calcium (Lipitor) 20 mg PO [facility] Stop: 06/19/19 09:44 Last Admin: 05/24/19 08:45 Dose: 20 mg Documented by: Clopidogrel Bisulfate (Plavix) 75 mg PO [facility] Stop: 06/23/19 11:29 Last Admin: 05/24/19 11:53 Dose: 75 mg Documented by: Dextrose (Dextrose 50%) 25 - 50 ml IV UD PRN; Protocol PRN Reason: Hypoglycemia Protocol Stop: 06/17/19 13:58 Diclofenac Sodium (Voltaren 1% Top) 2 gm EXT TID PRN PRN Reason: Pain Stop: 06/05/19 21:35 Last Admin: 05/21/19 22:02 Dose: 2 gm Documented by: Fluticasone/Vilanterol (Breo Ellipta 200/25 Mcg Inh) 1 puffs INH DAILY [facility] Stop: 06/18/19 08:59 Last Admin: 05/24/19 08:44 Dose: 1 puffs Documented by: Glucagon (Glucagen) 1 mg SQ UD PRN; Protocol PRN Reason: Hypoglycemia Protocol Stop: 06/17/19 13:58 Glucose (Dex4 Glucose) 4 - 8 tabs PO UD PRN; Protocol PRN Reason: Hypoglycemia Protocol Stop: 06/17/19 13:58 Glucose (Glucose 40%) 15 - 30 gm PO UD PRN; Protocol PRN Reason: Hypoglycemia Protocol Stop: 06/17/19 13:58 Promethazine HCl 12.5 mg/ (Sodium Chloride) 50.5 mls @ 204 mls/hr IV Q6H PRN PRN Reason: Nausea &/or Vomiting Stop: 06/17/19 13:11 Last Infusion: 05/19/19 06:29 Dose: Infused Documented by: Insulin Aspart (Novolog Flexpen) 0 units SC ACHS [facility] Stop: 06/19/19 00:00 Last Admin: 05/24/19 11:53 Dose: Not Given Documented by: Insulin Glargine (Lantus Solostar Pen) [facility] Stop: 06/22/19 11:59 Last Admin: 05/24/19 08:46 Dose: 30 units Documented by: Ipratropium [place] (Atrovent 0.02% 0.5mg/2.5ml) 0.5 mg INH Q4H PRN PRN Reason: wheeze Stop: 06/19/19 09:44 Levalbuterol HCl (Xopenex 1.25mg/0.5ml Neb) 1.25 mg INH Q4 PRN PRN Reason: wheeze Stop: 06/19/19 11:59 Lidocaine (Lidoderm 5%) 1 patch [facility] [place] Stop: 06/19/19 08:29 Last Admin: 05/24/19 08:45 Dose: 1 patch Documented by: Lidocaine (Lidoderm 5%) 1 patch TD [facility] [place] Stop: 06/21/19 09:44 Last Admin: 05/24/19 08:46 Dose: 1 patch Documented by: Magnesium Oxide (Mag-Ox) 200 mg PO BID [facility] Stop: 06/19/19 09:44 Last Admin: 05/24/19 08:45 Dose: 200 mg Documented by: Miscellaneous (Carbohydrates For Hypoglycemia) 15 - 30 gm PO UD PRN PRN Reason: Hypoglycemia Protocol Stop: 06/17/19 13:58 Last Admin: 05/19/19 00:25 Dose: 15 gm Documented by: Miscellaneous (Remove Lidoderm Patch) 1 ea N/A DAILY@2099 [facility] Stop: 06/19/19 20:59 Last Admin: 05/23/19 21:12 Dose: 1 ea Documented by: Miscellaneous (Remove Lidoderm Patch) 1 ea N/A DAILY@2100 [facility] Stop: 06/21/19 20:59 Last Admin: 05/23/19 21:12 Dose: 1 ea Documented by: Miscellaneous Information (Consult Glycemic Management Pharmacy) 1 ea N/A UD PRN PRN Reason: Consult Stop: 06/18/19 09:30 Naloxone HCl (Narcan) 0.1 mg IV Q5M PRN; Protocol PRN Reason: Oversedation/Resp Depression Stop: 06/17/19 13:11 Ondansetron HCl (Zofran) 4 mg IV Q6H PRN PRN Reason: Nausea &/or Vomiting Stop: 06/17/19 13:11 Last Admin: 05/20/19 10:59 Dose: 4 mg Documented by: Pantoprazole Sodium (Protonix) 40 mg PO [facility] Stop: 06/20/19 08:59 Last Admin: 05/24/19 08:45 Dose: 40 mg Documented by: Sodium Biphosphate/Sodium Phosphate (Fleet Enema) 132 ml [place] ONE PRN PRN Reason: Constipation Stop: 06/17/19 13:11
[2019-05-25] MEDS: ACETAMINOPHEN 325 MG TAB PO PRN (05:34)
[2019-05-25] MEDS: DICLOFENAC SOD 1% GEL 100 GM TUBE EXT PRN ×2 (05:35→08:55)
[2019-05-25 06:26] LABS: BUN Creatinine Ratio 20.9 (10-20); Calcium 9.2 mg/dl (8.5-10.1); Creatinine Clr Calc Pharmacy 47.7 ml/min; Est GFR (African American) 53.6; Est GFR (Non-African American) 46.2; Magnesium 2.1 mg/dl (1.8-2.4); Potassium 3.7 mmol/L (3.5-5.1)
[2019-05-25] MEDS: INSULIN ASPART 100 UNITS/ML 3 ML PEN SC SCH ×3 (08:19→12:19)
[2019-05-25] MEDS ORDERED: HydrALAZINE HCL 20 MG/ML VIAL IV ONE (08:29)
[2019-05-25] MEDS: INSULIN GLARGINE SOLOSTAR 100 UNITS/ML 3 ML PEN SC SCH (08:34)
[2019-05-25] MEDS: ASPIRIN 81 MG ECTAB PO SCH (08:35)
[2019-05-25] MEDS: PANTOprazole 40 MG TAB PO SCH (08:36)
[2019-05-25] MEDS: MAGNESIUM OXIDE 400 MG TAB PO SCH (08:36)
[2019-05-25] MEDS: CLOPIDOGREL BISULFATE 75 MG TAB PO SCH (08:36)
[2019-05-25] MEDS: ATORVASTATIN 20 MG TAB PO SCH (08:36)
[2019-05-25] MEDS: FLUTICASONE/VILANTEROL 200/25MCG 14 PUFFS/INHALER INH SCH (08:36)
[2019-05-25] MEDS: LIDOCAINE 5% 1 PATCH TD SCH ×2 (08:37→08:38)
--- NOTE | 2019-05-25 08:37 | Hospitalist Progress Note ---
Date of Service May 25, 2019 Assessment & Plan (1) Acute on chronic renal failure: Renal failure with underlying CKD stage III Acute renal failure/ ATN with underlying CKD stage III Baseline creatinine 1.5/as per preop lab work on 05/07/2019 After surgery, anuric/oliguric renal failure, elevated creatinine 2.21 Patient developed hyperkalemia volume overload, overtly uremic with metabolic encephalopathy/confusion Appreciate input from nephrology- Had emergent dialysis on 05/19/2019 (1L removed) then again HD on 05/19 (2.5 L removed) Gave 80 mg IV lasix on (05/20), no HD - No more plan for HD, diuresis only as needed - R IJ catheter removed Electrolytes improved, hyperkalemia/metabolic acidosis resolved Follow BMP daily, continue telemetry monitoring Pt then hypokalemic (from diuretics), K replaced, will cont. to monitor Acute CHF with diastolic dysfunction/HFp EF: Patient developed florid volume overload, Due to developed ATN, with oliguric renal failure, Given 80 mg IV Lasix initially, with minimum urine output Status post emergent dialysis on 05/18 Echo shows: No wall motion abnormality, normal ejection fraction, grade 1 diastolic dysfunction (2) Hyperkalemia: Resolved Due to acute renal failure/poor urine output ARB discontinued Status post dialysis, with normalization of potassium level Pt then hypokalemic (2/2 diuretic use), K replaced, will cont. to monitor (3) Hypoxia: Possible secondary to volume overload,renal failure/ATN, decompensated CHF with diastolic dysfunction, in the setting of interstitial lung disease Was treated with BiPAP ABG showed improvement of hypoxemia (05/19) Respiratory status continued to improve after emergent dialysis and repeat HD Chest x-ray on 05/19 shows improvement of pulmonary congestion Pulmonology team consulted, appreciate input - currently pt on RA, breathing comfortably, not requiring suppl. O2 (4) Status post lumbar surgery: Day #7 of lumbar spinal decompression surgery by Dr. Garcia No postoperative complication noted, surgical site seems to be healing, no sign of infection Spinal ortho was notified to evaluate patient as experiencing severe/stabbing pain on the right buttock area on 05/19 - believed to be trochanteric bursitis, no current complaints Anemia - acute blood loss/ post op anemia - stable Hgb - no s/s - cont. to monitor JAY - cont. CPAP Hypertension - pt's BP somewhat elevated now - pt on valsartan at home, resume (5) CAD (coronary artery disease): History of coronary artery disease, status post PTCA in 2014 No complaint of chest pain dyspnea on exertion, Echo shows no wall motion abnormality, grade 1 diastolic dysfunction Continue outpatient meds Imdur, beta-sharona, aspirin CODE STATUS: Full code DVT prophylaxis: SCD and teds Pt's appreciates updates over the phone Admission and Anticipated Discharge Date Admission Date: May 18, 2019 Subjective No acute events overnight, patient refused CPAP. Currently breathing comfortably on room air. Hypertensive. Currently patient is lying in bed, in no acute distress, however complains of some back pain. Denies fevers, chills, chest pain, shortness of breath, abdominal pain, nausea or vomiting. Review of Systems Review of Systems: All systems reviewed & are unremarkable except as noted in HPI & below Constitutional: no fever and no chills Respiratory: no cough and no dyspnea Cardiovascular: no chest pain, no palpitations and no edema Gastrointestinal: no abdominal pain, no nausea and no vomiting Musculoskeletal: + back pain (improved) Physical Exam Physical Exam: Constitutional: elderly male lying in bed, WD/WN, vitals as above, in no acute distress, currently on RA breathing comfortably Eyes: PERRL, EOMI, conjunctivae normal, anicteric sclerae ENMT: external ear and nose normal, oropharynx normal Neck: trachea midline, no thyromegaly, R IJ cath. removed Respiratory: no respiratory distress Auscultation: CTAB, no rhonchi, crackles, or wheezes Cardiovascular: RRR, no murmur, no edema Gastrointestinal (Abdomen): Percussion/Palpation: abdomen soft, obese, nontender to palp. Musculoskeletal: Surgical dressings present on lumbar decompression surgery area, no surrounding erythema, swelling noted (: Gould removed on 05/21) Skin: no rashes, warm and dry Neurologic: PERRL, EOMI, accommodation nl, no face palsy, no dysarthria, moves extremities spontaneously Psychiatric: Orientation: alert and oriented x 3 Mood: somewhat anxious mood Results & Data Results & Data ([facility] [place]) Vital Signs (Past 12 Hours) Vital Signs Temp Pulse Pulse Resp BP BP Pulse Ox 05/25/19 08:32 172/84 H 05/25/19 08:09 36.8 C 90 18 195/95 H 97 05/24/19 23:20 36.7 C 79 18 165/72 H 94 Laboratory Results 05/25/19 05/25/19 05/24/19 Range/Units 08:06 05:23 20:55 Sodium 138 (136-145) mmol/L Potassium 3.7 (3.5-5.1) mmol/L Chloride 105 (98-107) mmol/L Carbon Dioxide 25 (21-32) mmol/L Anion Gap 8.0 (3-11) BUN 31 H (7-18) mg/dl Creatinine 1.49 H (0.6-1.4) mg/dl Est Cr Clr Drug Dosing 47.7 ml/min Est GFR ( Amer) 53.6 Est GFR (Non-Af Amer) 46.2 BUN/Creatinine Ratio 20.9 H (10-20) Glucose 130 H (70-99) mg/dl POC Glucose 129 H 171 H (70-99) mg/dl Calcium 9.2 (8.5-10.1) mg/dl Magnesium 2.1 (1.8-2.4) mg/dl 05/24/19 05/24/19 Range/Units 17:12 11:15 Sodium (136-145) mmol/L Potassium (3.5-5.1) mmol/L Chloride (98-107) mmol/L Carbon Dioxide (21-32) mmol/L Anion Gap (3-11) BUN (7-18) mg/dl Creatinine (0.6-1.4) mg/dl Est Cr Clr Drug Dosing ml/min Est GFR ( Amer) Est GFR (Non-Af Amer) BUN/Creatinine Ratio (10-20) Glucose (70-99) mg/dl POC Glucose 177 H 138 H (70-99) mg/dl Calcium (8.5-10.1) mg/dl Magnesium (1.8-2.4) mg/dl Medications Administered Current Inpatient Medications Acetaminophen (Tylenol) 650 mg PO Q4H PRN PRN Reason: Mild Pain Stop: 06/20/19 10:45 Last Admin: 05/25/19 05:34 Dose: 650 mg Documented by: Albuterol (Ventolin Hfa) 2 puffs INH Q6H PRN PRN Reason: shortness of breath or wheezing Stop: 06/17/19 13:11 Aspirin (Ecotrin Ectab) 81 mg PO QAM [facility] Stop: 06/19/19 09:44 Last Admin: 05/24/19 08:45 Dose: 81 mg Documented by: Atorvastatin Calcium (Lipitor) 20 mg PO QAM [facility] Stop: 06/19/19 09:44 Last Admin: 05/24/19 08:45 Dose: 20 mg Documented by: Clopidogrel Bisulfate (Plavix) 75 mg PO QAM [facility] Stop: 06/23/19 11:29 Last Admin: 05/24/19 11:53 Dose: 75 mg Documented by: Dextrose (Dextrose 50%) 25 - 50 ml IV UD PRN; Protocol PRN Reason: Hypoglycemia Protocol Stop: 06/17/19 13:58 Diclofenac Sodium (Voltaren 1% Top) 2 gm EXT TID PRN PRN Reason: Pain Stop: 06/05/19 21:35 Last Admin: 05/25/19 05:35 Dose: 2 gm Documented by: Fluticasone/Vilanterol (Breo Ellipta 200/25 Mcg Inh) 1 puffs INH DAILY [facility] Stop: 06/18/19 08:59 Last Admin: 05/24/19 08:44 Dose: 1 puffs Documented by: Furosemide (Lasix) 40 mg PO ONE ONE Stop: 05/25/19 08:46 Glucagon (Glucagen) 1 mg SQ UD PRN; Protocol PRN Reason: Hypoglycemia Protocol Stop: 06/17/19 13:58 Glucose (Dex4 Glucose) 4 - 8 tabs PO UD PRN; Protocol PRN Reason: Hypoglycemia Protocol Stop: 06/17/19 13:58 Glucose (Glucose 40%) 15 - 30 gm PO UD PRN; Protocol PRN Reason: Hypoglycemia Protocol Stop: 06/17/19 13:58 Promethazine HCl 12.5 mg/ (Sodium Chloride) 50.5 mls @ 204 mls/hr IV Q6H PRN PRN Reason: Nausea &/or Vomiting Stop: 06/17/19 13:11 Last Infusion: 05/19/19 06:29 Dose: Infused Documented by: Insulin Aspart (Novolog Flexpen) 0 units SC ACHS [facility] Stop: 06/19/19 00:00 Last Admin: 05/25/19 08:19 Dose: Not Given Documented by: Insulin Glargine (Lantus Solostar Pen) 30 units SC [facility] Stop: 06/22/19 11:59 Last Admin: 05/24/19 08:46 Dose: 30 units Documented by: Ipratropium [place] (Atrovent 0.02% 0.5mg/2.5ml) 0.5 mg INH Q4H PRN PRN Reason: wheeze Stop: 06/19/19 09:44 Levalbuterol HCl (Xopenex 1.25mg/0.5ml Neb) 1.25 mg INH Q4 PRN PRN Reason: wheeze Stop: 06/19/19 11:59 Lidocaine (Lidoderm 5%) 1 patch TD [facility] Stop: 06/19/19 08:29 Last Admin: 05/24/19 08:45 Dose: 1 patch Documented by: Lidocaine (Lidoderm 5%) 1 patch TD [facility] Stop: 06/21/19 09:44 Last Admin: 05/24/19 08:46 Dose: 1 patch Documented by: Magnesium Oxide (Mag-Ox) 200 mg PO BID [facility] Stop: 06/19/19 09:44 Last Admin: 05/24/19 21:08 Dose: 200 mg Documented by: Miscellaneous (Carbohydrates For Hypoglycemia) 15 - 30 gm PO UD PRN PRN Reason: Hypoglycemia Protocol Stop: 06/17/19 13:58 Last Admin: 05/19/19 00:25 Dose: 15 gm Documented by: Miscellaneous (Remove Lidoderm Patch) 1 ea N/A DAILY@2099 [facility] Stop: 06/19/19 20:59 Last Admin: 05/24/19 21:08 Dose: 1 ea Documented by: Miscellaneous (Remove Lidoderm Patch) 1 ea N/A DAILY@2099 [facility] Stop: 06/21/19 20:59 Last Admin: 05/24/19 21:08 Dose: 1 ea Documented by: Miscellaneous Information (Consult Glycemic Management Pharmacy) 1 ea N/A UD PRN PRN Reason: Consult Stop: 06/18/19 09:30 Naloxone HCl (Narcan) 0.1 mg IV Q5M PRN; Protocol PRN Reason: Oversedation/Resp Depression Stop: 06/17/19 13:11 Ondansetron HCl (Zofran) 4 mg IV Q6H PRN PRN Reason: Nausea &/or Vomiting Stop: 06/17/19 13:11 Last Admin: 05/20/19 10:59 Dose: 4 mg Documented by: Pantoprazole Sodium (Protonix) 40 mg PO [facility] Stop: 06/20/19 08:59 Last Admin: 05/24/19 08:45 Dose: 40 mg Documented by: Sodium Biphosphate/Sodium Phosphate (Fleet Enema) 132 ml [place] ONE PRN PRN Reason: Constipation Stop: 06/17/19 13:11
[2019-05-25] MEDS ORDERED: FUROSEMIDE 40 MG TAB PO ONE (08:45)
[2019-05-25] MEDS ORDERED: POTASSIUM CHLORIDE 20 MEQ TABCR PO ONE (09:00)
--- NOTE | 2019-05-25 09:05 | Nephrology Progress Note ---
Date of Service May 25, 2019 Assessment & Plan (1) Acute on chronic renal failure: Patient with acute renal failure likely due to ischemic ATN in setting of lumbar fusion and postoperative NSAID use. Baseline creatinine of 1.5. Creatinine peak 2.2. Due to hyperkalemia and somnolence, Patient had urgent dialysis 05/18 for 2 hours on a 1K bath and target UF of 1 L. Patient had another 2 hours of isolated ultrafiltration 05/19 for net UF of 2.5 L. Patient is recovering renal function. No need for further HD. Creatinine at 1.49 today. -From renal standpoint patient can be discharged. 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 -Continue to monitor renal function with daily BMP while in-house. -Avoid nephrotoxins such as NSAIDs and contrast unless lifesaving (2) Hyperkalemia: Due to acute renal failure. Improved after dialysis. She 3.7 today. (3) Hypoxia: Improved with the diuresis. Continue to monitor respiratory status and diuresis as needed. (4) Status post lumbar surgery: Patient is postoperative day 7. Management per Dr. Garcia. Given renal recovery, okay to use opioids for pain control. Patient appears to be in significant pain. Okay to use tramadol or Vicodin for pain control Admission and Anticipated Discharge Date Admission Date: May 18, 2019 Subjective Patient is complaining of back pain. No shortness of breath. No dysuria. Creatinine stable at 1.49. Review of Systems Review of Systems: All systems reviewed & are unremarkable except as noted in HPI & below Physical Exam Physical Exam: General exam: Appears comfortable, no acute distress HEENT: Pupils are equal and reactive to light Neck: No JVD, neck is supple trachea is midline Respiratory system: Clear breath sounds bilaterally. Gastrointestinal: Abdomen is soft, non distended, non tender, bowel sounds are present CVS: Regular rate and rhythm. No murmurs, rubs or gallops Musculoskeletal: No joint or muscle tenderness Extremities: Non tender, no edema, peripheral pulses are present Neuro: Oriented, no tremors, no focal neurological deficits Skin: No rashes Results & Data ([facility]) Vital Signs (Past 12 Hours) Vital Signs Temp Pulse Pulse Resp BP BP Pulse Ox 05/25/19 08:47 164/83 H 05/25/19 08:32 172/84 H 05/25/19 08:09 36.8 C 90 18 195/95 H 97 05/24/19 23:20 36.7 C 79 18 165/72 H 94 Laboratory Results 05/25/19 05:23
[2019-05-25] MEDS ORDERED: OXYCODONE HCL IR 5 MG TAB (IMMEDIATE RELEASE) PO PRN (09:56)
--- NOTE | 2019-05-25 09:59 | Orthopedic Progress Note ---
Date of Service May 25, 2019 Assessment & Plan (1) Neurogenic claudication due to lumbar spinal stenosis: At this time he is ambulating well. I will begin him on 1 OxyIR every 6 hours to see if this help with his pain. He is stable for discharge per orthopedic standpoint. Present on Admission?: Yes Admission and Anticipated Discharge Date Admission Date: May 18, 2019 Subjective Patient complaining of back pain and some leg pain but ambulating without difficulty. Physical Exam Physical Exam: On exam is good strength testing. Is some tenderness palpation of lumbar musculature. Results & Data ([facility]) Vital Signs (Past 12 Hours) Vital Signs Temp Pulse Pulse Resp BP BP Pulse Ox 05/25/19 08:47 164/83 H 05/25/19 08:32 172/84 H 05/25/19 08:09 36.8 C 90 18 195/95 H 97 05/24/19 23:20 36.7 C 79 18 165/72 H 94
--- NOTE | 2019-05-25 11:28 | Pharmacy Report ---
Pharmacy Glycemic Short Note 2 - Date of Service May 25, 2019 - Glycemic Short BSG Results (Last 24 hours): 05/24/19 05/24/19 05/25/19 17:12 20:55 05:23 Glucose 130 H POC Glucose 177 H 171 H 05/25/19 08:06 Glucose POC Glucose 129 H OUTPATIENT ANTIDIABETIC REGIMEN: * Basaglar 64 units SQ AM * Metformin 1000 mg PO BIDM * Januvia 100 mg PO Daily * A1c = 8.3% on 05/07/2019 ASSESSMENT: * 73 yo M with T2DM * Inpatient stressors stable * BSG's ranging 128-177 mg/dL yesterday - no changes to inpatient regimen for now PLAN FOR INPATIENT GLYCEMIC CONTROL: * Hold outpatient oral diabetes medications * Basal insulin * Lantus 30 units daily * Bolus insulin * NovoLog per scale ACHS or Q6hrs while NPO * Goal Range: Low 110 mg/dL - High 140 mg/dL * Correction Factor: 25 mg/dL/unit * Nutritional / Prandial insulin per carb ratio of 1 unit per 8 grams CHO consumed PLAN FOR DISCHARGE: * See 05/22 note
--- NOTE | 2019-05-25 12:04 | Discharge Summary ---
Date of Service May 25, 2019 Admission HPI Per Admitting Provider This is a 73-year-old male that presents with worsening back and bilateral leg pain after failing extensive course of nonoperative care is here for surgical invention. - per ortho/spine surgeon Per med consult: Pt is 73 y/o M with PMH CAD s/p stent in 2014, DM II, CKD III, HTN, CHF, PAD, COPD, JAY on CPAP, tobacco use seen in consultation for postop medical management s/p L4-S1 decompression fusion today by Dr. Garcia. Postop patient reporting some low back pain. Denies nausea, vomiting, chest pain, shortness of breath, dizziness, headache. Denies lower extremity pain or paresthesias. Reports last BM yesterday. Denies fever/chills, diaphoresis,neck pain, orthopnea, palpitations, cough, sore throat, choking, otalgia, rhinorrhea, abdominal pain, paresthesias, extremity weakness, extremity edema, rashes, urinary symptoms. Admission Exam Per Admitting Provider Physical Exam: Patient is alert and oriented neurologically intact. - per orto/spine surgery (admitting service) Physical exam per med consult team General: no distress, WDWN Head: normocephalic, atraumatic Eyes: PERRL, EOM's intact, conjunctiva non-injected, anicteric ENT: normal inspection external ears, nose, mucous membranes moist Neck: supple, trachea midline, non-tender Lungs: clear, no respiratory distress, no wheezing/rhonchi/rales CV: RRR, no murmur, no pretibial edema Abd: normal BS, soft, non-tender Ext: no cyanosis, no calf tenderness; pedal pushes and pulls intact bilaterally, sensation to light touch intact, distal pulses intact Back: surgical dressing dry and intact Neuro: A&O x 3, no focal deficits noted, normal affect Skin: warm, dry Principal Diagnosis Neurogenic claudication d/t lumbar spinal stenosis Acute on chronic renal failure (underlying CKD stage III) Hyperkalemia Acute hypoxic respiratory failure Acute CHF with diastolic dysfunction Discharge Exam Constitutional: elderly male lying in bed, WD/WN, in no acute distress, currently on RA breathing comfortably VS: BP 164/83, HR 90, %% 18, Temp. 36.8C, O2 sat 97 on room air Eyes: PERRL, EOMI, conjunctivae normal, anicteric sclerae ENMT: external ear and nose normal, oropharynx normal Neck: trachea midline, no thyromegaly, (R IJ cath. removed) Respiratory: no respiratory distress Auscultation: CTAB, no rhonchi, crackles, or wheezes Cardiovascular: RRR, no murmur, no edema Gastrointestinal (Abdomen): Percussion/Palpation: abdomen soft, obese, nontender to palp. Musculoskeletal: Surgical dressings present on lumbar decompression surgery area, no surrounding erythema, swelling noted (: Gould removed on 05/21) Skin: no rashes, warm and dry Neurologic: PERRL, EOMI, accommodation nl, no face palsy, no dysarthria, moves extremities spontaneously Psychiatric: Orientation: alert and oriented x 3 Mood: somewhat anxious mood Discharge Data Allergies Allergy/AdvReac Type Severity Reaction Status Date / Time adhesive Allergy Unknown ADHESIVE Verified 05/18/19 08:14 TAPE: REDNESS AND BLISTERS Consultations 05/18/19 13:12 Consult Case Management - Discharge Planning Routine Consult Hospitalist Routine 05/19/19 10:38 Consult Nephrology Routine 05/19/19 15:13 Consult Security Operations Manager Routine 05/20/19 08:05 Consult Pulmonology Routine Procedures Performed Operation Date: 05/18/19 09:35 Actual Procedures p L5-S1 Decompression and Fusion, Interbody Cage at L5-S1, Application of Bone Morphogenetic Protein, Application of Osteoamp Allograft, Spinal Cord Monitoring(Not Applicable) - Wilberto Garcia, Ordered Studies 05/18/19 09:35 FL fluoroscopy <1hr Routine FL lumbar spine 2-3V Routine 05/19/19 15:51 US point of care ultrasound Stat 05/22/19 10:15 US renal/blad retro comp Routine FINDINGS: Right kidney: 10.4 cm. No hydronephrosis. Normal corticomedullary differentiation and cortical thickness. Left kidney: 11.6 cm. No hydronephrosis. Normal corticomedullary differentiation and cortical thickness. Bladder: Trace urine within the bladder. The bladder is mostly decompressed by Gould catheter. IMPRESSION: No hydronephrosis. The bladder is decompressed by a Gould catheter. Hospital Course (1) Acute on chronic renal failure: Renal failure with underlying CKD stage III Acute renal failure/ ATN with underlying CKD stage III Baseline creatinine 1.5/as per preop lab work on 05/07/2019 After surgery, anuric/oliguric renal failure, elevated creatinine 2.21 Patient developed hyperkalemia volume overload, overtly uremic with metabolic encephalopathy/confusion Appreciate input from nephrology- Had emergent dialysis on 05/19/2019 (1L removed) then again HD on 05/19 (2.5 L removed) Gave 80 mg IV lasix on (05/20), no HD - No more plan for HD, diuresis only as needed - R IJ catheter removed - current Cr back to baseline - check BMP in 1 week, and follow up with nephrology in 1- 2 weeks Electrolytes improved, hyperkalemia/metabolic acidosis resolved Follow BMP daily, continue telemetry monitoring Pt then hypokalemic (from diuretics), K replaced, will cont. to monitor Acute CHF with diastolic dysfunction/HFp EF: Patient developed florid volume overload, Due to developed ATN, with oliguric renal failure, Given 80 mg IV Lasix initially, with minimum urine output Status post emergent dialysis on 05/18 Echo shows: No wall motion abnormality, normal ejection fraction, grade 1 diastolic dysfunction (2) Hyperkalemia: Resolved Due to acute renal failure/poor urine output ARB discontinued Status post dialysis, with normalization of potassium level Pt then hypokalemic (2/2 diuretic use), K replaced, will cont. to monitor - now K wnl - check BMP in 1 week (3) Hypoxia: Possible secondary to volume overload,renal failure/ATN, decompensated CHF with diastolic dysfunction, in the setting of interstitial lung disease Was treated with BiPAP ABG showed improvement of hypoxemia (05/19) Respiratory status continued to improve after emergent dialysis and repeat HD Chest x-ray on 05/19 shows improvement of pulmonary congestion Pulmonology team consulted, appreciate input - currently pt on RA, breathing comfortably, not requiring suppl. O2 (4) Status post lumbar surgery: Day #7 of lumbar spinal decompression surgery by Dr. Garcia No postoperative complication noted, surgical site seems to be healing, no sign of infection Spinal ortho was notified to evaluate patient as experiencing severe/stabbing pain on the right buttock area on 05/19 - believed to be trochanteric bursitis, no current complaints Anemia - acute blood loss/ post op anemia - stable Hgb - no s/s - cont. to monitor JAY - cont. CPAP Hypertension - pt's BP somewhat elevated now - pt on valsartan at home, resume (5) CAD (coronary artery disease): History of coronary artery disease, status post PTCA in 2014 No complaint of chest pain dyspnea on exertion, Echo shows no wall motion abnormality, grade 1 diastolic dysfunction Continue outpatient meds Imdur, beta-sharona, aspirin CODE STATUS: Full code DVT prophylaxis: SCD and teds Pt's appreciates updates over the phone Total Time Total Time Spent Total Time Spent (In Minutes): 40 Total Time Includes: Examination of the Patient, Discharge Planning, Medication Reconciliation and Communication With Other Providers Discharge Plan Discharge Items Patient Disposition: Transfer Inpatient Rehab Fac Reason For Visit: LUMBAR SPINAL STENOSIS WO NEUROGENIC CLAUDICATION Discharge Diagnosis: Neurogenic claudication d/t lumbar spinal stenosis Acute on chronic renal failure (underlying CKD stage III) Hyperkalemia Acute hypoxic respiratory failure Acute CHF with diastolic dysfunction Activity: As commented below Non-emergency contact: Primary Care Provider and Surgeon Call non-emergency contact if: you have any medication questions Follow-up/Referrals: Duran Singh PA-C [Primary Care Provider] - Diet: Carb Consistent or DM2 and Heart Healthy Addtl Attending Provider Instructions: For pain you can take Tylenol 1000 mg 3 times a day, max dose is 3000 mg a day. For more severe pain, you can take oxycodone, which was prescribed to you, every 6 hours, as needed. You will need to have a blood work done, BMP, to check on your kidney function, in 1 week. You will also need to follow-up with kidney doctor. Avoid NSAIDs, such as Aleve, ibuprofen, Motrin. Make sure to read further instructions from your orthopedic surgeon below: ACTIVITY RECOMMENDATIONS: SELF CARE INSTRUCTIONS AFTER THORACIC/LUMBAR FUSIONS 1. You may walk to your tolerance. It is good exercise for your legs and back. Expect some back and intermittent leg aches and pains. 2. You may perform "counter-top" level activities (make a sandwich, clay with a project, etc.). 3. No bending or lifting of more than 10 pounds or back twisting of any nature (roll like a log when turning in bed). 4. You may ride in a car for 20-30 minutes at a time. No driving until after your first visit with your doctor. 5. Frequent changes of position and restricting sitting to 30 minutes at a time will help limit the amount of back spasms and stiffness you may experience. 6. You may discontinue the use of ambulatory aids (cane, crutches, etc.) once your strength and confidence allow. 7. You may information services consultant the shower and let water strike your incision when you arrive home at least once daily. Do not take a tub bath, sit in a hot tub or go into a swimming pool until after your first recheck in the office. SPECIAL CARE INSTRUCTIONS: VERY IMPORTANT TO READ AND REVIEW A. Your surgical incision has been closed with a cosmetic suture under the skin that will dissolve in about 6 weeks. In 14 days, you can use a pair of clean scissors and cut the suture that is left outside of the skin at the ends of your incision. 1. The small skin tapes can be removed 7 days after surgery if they have not fallen off by that point. 2. You may keep the wound open to air as much as possible to promote healing after post-op day number 5 unless told otherwise by your doctor. 3. If you think the wound looks like it is becoming infected (redness or worsening drainage) and/or you are experiencing fever, chill or worsening back pain and muscle spasms, contact the office so that we may evaluate you as soon as possible. B. Complications are uncommon, but please contact us if you have any signs or symptoms of: 1. wound infection (fever higher than 102.5 degrees F, redness, separation of wound, drainage, or increasing pain from the incision) 2. blood clots in legs (pain, swelling, redness and warmth in legs) 3. urinary tract infection (fever higher than 102.5 degrees F, burning upon urination or increased frequency of urination) 4. nerve problems (inability to walk on your toes or heels, numbness, loss of bowel or bladder control) 5. any other symptoms that concern you C. Please call the office at if you have any concerns or questions about your operation or recovery. D. No smoking! Smoking drastically decreases the chance of a solid fusion. E. Do not take any anti-inflammatory medications (Indocin, Advil, Motrin, Aspirin, Naprosyn, etc.) as these may inhibit the chance of a solid fusion. Tylenol is okay to take for pain. MANAGING PAIN AFTER SPINAL SURGERY 1. Narcotic medication is intended for short-term use and will be provided for surgical pain. Surgical pain usually lasts for a period of 4-6 weeks. Narcotic medication includes Percocet, Vicodin, Darvocet, Tylenol #3 or Lortab. 2. Longer-term pain is more appropriately treated with non-narcotic medication such as Tylenol ES. 3. Muscle spasm is not appropriately treated with narcotics. Muscle relaxers such as Soma, Flexeril or Skelaxin can be used along with Tylenol ES. 4. Remember that we all live with some "aches and pains". This is not unusual or uncommon after an injury or as we get older. a. Back pain is expected and may include muscle spasms for 4 to 6 weeks after surgery. The pain should gradually improve. If the pain worsens for no apparent reason, please contact the office. b. Intermittent leg pain may also be experienced and should not be concerned about unless it worsens for no apparent reason. If so, please contact the office. 5. We will provide appropriate medication within the normal guidelines of their prescribed use. We will also be very cautious and aware of potential abuse and extended duration of patients' medication needs. a. Pain medications are for your comfort and to assist with sleep and rest so that the tissue can heal. They are not provided in order to return to normal activity and should not be used through the day. To do so or worsening pain at night can result from ongoing tissue damage and development of tolerance to the prescribed medicine. 6. Please allow 2-3 days to process refills. Prescriptions will not be mailed but must be picked up at the office. FOLLOW UP VISIT: Keep your scheduled follow-up appointment. Any questions, please call the office at . Addtl [facility] Provider Instructions: PLAN FOR INPATIENT GLYCEMIC CONTROL: Decreasing Lantus to 15 units SQ BID Continuing correction factor of 25 mg/dl/unit Continuing carb ratio of 1 unit per 8 grams CHO consumed Continuing goal range of Low 110 mg/dL - High 140 mg/dL RECOMMENDATIONS FOR DISCHARGE: Continue Januvia and metformin as long as patient is not at risk for JAVED at home. Recommend reduction in Basaglar dose ... could do 40 units daily. Recommend starting Novolog or Humalog with largest meal of the day to offset extremely basal heavy regimen. Pending Studies at Discharge: No Stand-Alone Forms: My [facility] [address] Skilled Items Patient informed of condition?: Yes DNR: No Discharge Level of Care: Acute rehab Communicable Disease: No Discharge Prognosis: Stable Lines: None Urinary Catheter: No Medications and DC Order Prescriptions: New oxycodone 5 mg tablet 5 mg PO Q6H PRN (Reason: pain, severe) Qty: 20 RF: 0 Continued Chantix Continuing Month Box 1 mg tablet 1 mg PO BID Qty: 60 RF: 2 (DME) CPAP Machine Misc See Rx Instructions .ROUTE .MEDSUPPLY Qty: 1 RF: 0 (DME) CPAP Supplies Misc See Rx Instructions .ROUTE .MEDSUPPLY Qty: 1 RF: 0 metformin 1,000 mg tablet 1,000 mg PO BID RF: 0 citalopram [Celexa] 40 mg tablet 60 mg PO QAM RF: 0 valsartan [Diovan] 40 mg tablet 40 mg PO HS RF: 0 Januvia 100 mg tablet 100 mg PO QAM RF: 0 atorvastatin [Lipitor] 20 mg tablet 20 mg PO QAM RF: 0 magnesium oxide 200 mg magnesium tablet 200 mg PO BID RF: 0 aspirin 81 mg tablet,delayed release (DR/EC) 81 mg PO DAILY RF: 0 clopidogrel [Plavix] 75 mg tablet 75 mg PO QAM RF: 0 pantoprazole [Protonix] 40 mg tablet,delayed release (DR/EC) 40 mg PO QAM RF: 0 nitroglycerin 0.4 mg tablet, sublingual 0.4 mg SL Q5M PRN (Reason: Chest Pain) RF: 0 fluticasone furoate-vilanterol [Breo Ellipta] 200-25 mcg/dose blister with device 1 ea inhalation QAM RF: 0 albuterol sulfate [Ventolin HFA] 90 mcg/actuation HFA aerosol inhaler 2 puffs INH Q6H PRN (Reason: shortness of breath or wheezing) Qty: 8.5 RF: 5 gabapentin [Neurontin] 600 mg Tablet 600 mg PO TID RF: 0 Changed Basaglar KwikPen U-100 Insulin 100 unit/mL (3 mL) insulin pen 40 units SQ QAM Qty: 0 RF: 0 Discontinued tolterodine [Detrol LA] 4 mg capsule,extended release 24hr 4 mg PO HS RF: 0 Discharge Orders: Discharge Order (Routine); Ordered 05/25/19 Ordered By: Patrick Monaco Admission Data Admit Date/Time: 05/18/19 12:09 Attending Provider: Patrick Monaco Admit Provider: Wilberto Garcia Primary Care Provider: Duran Singh Other Providers: Katlin Mortensen ; Wilberto Thao ; [facility] ; Edwin Partida ; Logan العراقي
== END 2019-05-25 15:37 | DRG 453 ==
LOC: ASU 07:57 → SUATTDRO 12:09 → 3E 12:09 → 2N 05-19 10:55 → 2E 05-19 15:16 → 3E 05-24 12:36

== ENCOUNTER 2021-07-27 17:03 | Observation (INO) ==
[2021-07-27] MEDS ORDERED: SODIUM CHLORIDE 0.9% 500 ML IV ONE (17:11)
--- NOTE | 2021-07-27 17:25 | XRay Report ---
XR chest 1V portable CLINICAL HISTORY: Weakness, sob. COMPARISON STUDY: 08/10/2019 TECHNIQUE: 1 view of the chest FINDINGS: Single frontal view of the chest demonstrates the cardiomediastinal silhouette to be within normal li mits. There is hyperinflation of the lungs with attenuation of the pulmonary vasculature peripherally donell cteristic of underlying chronic obstructive pulmonary disease. Mild prominence of interstitial markin gs is seen at the lung bases and unchanged. The lungs are clear of alveolar opacities. There is no ev idence for pleural effusion. There is no evidence for vascular congestion. There is no acute osseous pathology. IMPRESSION: 1. No acute cardiopulmonary disease. 2. Evidence for underlying COPD is again seen. ACT 112: Negative or not required by law. Electronically signed by: Angus Mcgarry M.D. 07/27/2021 5:23 PM
--- NOTE | 2021-07-27 17:27 | Emergency Department Note ---
Impression & Plan Acute kidney injury, Acidosis, lactic, Acute hypotension, Acute dehydration ED Provider Note Name: RAFAL BONNER Age: 75 Sex: M Arrives Via: Walk-In Informant: Patient, ED Provider: Michael Kruse MD Chief Complaint: Illness Impression: As per impression above Medical Decision Makin-year-old gentleman with a history of type 2 diabetes, CVA, CAD, PAD, anxiety/depression, hyperlipidemia, COPD, GERD, hypertension arrives for evaluation of worsening weakness, fatigue but also irritability. Patient brought to my attention by CARROLL due to illness and hypotensives and requesting physician evaluation in room P2. I immediately went and evaluated patient where he was hypotensive quite dry appearing and unwell. Severe sepsis work-up initiated and fluids begun. Patient admits that he has been taking his depression for the last few days and this made him quite irritable. He also notes that he just feels well and notes that he time some hypoglycemia at home. On examination patient is dehydrated appearing and is not septic appearing necessarily. In this setting I did feel is reasonable to get blood cultures and lactic acid that were already ordered. Work-up reveals acute JAVED with bump in his creatinine and a mild bump in his lactic acid along with generalized acidosis. He did recently return from [place] where he may not been eating and drinking as well and was in for some seconds sideroblast heat. I suspect this may be the cause of his acute renal injury and may be the cause of his acidosis as well. However in the setting of his multiple medical comorbidities I do think it prudent to give a dose of empiric antibiotics while awaiting blood cultures and further declaration from patient. He is given 2 L IV fluids and does appear vastly improved though with the initial labs I do not think would be reasonable to discharge him home at this time and he is on board with staying. Hospitalist consulted for further management. I will note patient has no headache no neurologic deficits. Prior Medical Record and Triage/Nursing Notes reviewed by Me Additional history obtained from chart and Differentials:Infection, dehydration, metabolic abnormality, hypo/hyperglyce deidre, electrolyte disturbance, anemia, hypoxia, cardiac sources, intracerebral event, toxicologic, neurologic, as well as other pathologies. Vital Signs: reviewed and remarkable for hypotensive Interventions: Normal saline bolus 2 L IV, cefepime 2 g IV Labs:Reviewed and remarkable for mildly elevated troponin, mildly elevated lactate, elevated creatinine Imagin view chest x-ray no acute findings as per radiologist EKG:Per My Interpretation: Indication weakness: NSR 95bpm, qtc 464. No Ectopy. No Ischemia. Compared to EKG May 19, 2019, no significant changes. Cardiac/Tele Monitoring: Cardiac Monitoring: An Order was placed for continuous cardiac monitoring. The monitor shows a rate of 90with a normal sinus rhythm. Consults:Dr. Montes [facility] Plan: Disposition:Hospitalization. Condition: Good History of Present Illness: 75-year-old male arrives for evaluation of illness. Patient notes he has been feeling increasingly tired and unwell for the last week. Over the last few days increasing tachypnea, exhaustion, excitability, tremors, chills, rapid breathing, dehydration, increased urination amongst other symptoms. He states he just does not feel well at all. He noted some left lower chest pain earlier today as well as some left upper abdominal pain at times. He notes pressing on the area makes it feel little bit better. He denies any significant shortness of breath or difficulty breathing but does state he feels like he is breathing faster at times. No recent change to his medications. He has not taken any new medications recently. He does have a history of hyperglycemia but notes his blood sugars have been in the 170s. He is on insulin and has not changed his dosing recently. He does have a history of CAD with stenting as well as peripheral artery disease with stenting. He has also had several strokes. He is on Plavix. Patient notes he continues to smoke daily. Any exertion makes symptoms worse and rest makes them better. ROS: See above HPI for pertinent positives & negatives. A total of 10 systems reviewed and were otherwise negative. Past Medical History:Type 2 diabetes, CVA, CAD, PAD, anxiety/depression, hyperlipidemia, COPD, GERD, hypertension Past Surgical History:Multiple cardiac and arterial stenting, amongst others, see below Family History:See Below Social History:See Below - continues to smoke Home Medications:See Below Allergies:adhesive Vitals:Blood Pressure: 94/49, Pulse 88, RR 24, T 36.4C, O2 99% on RA Physical Exam: GENERAL: Patient is unwell appearing and in moderate distress. EYES: No scleral icterus, unremarkable pupils. ENT: Mucous membranes moist, no nasal congestion. NECK: No masses appreciated, nomeningismus, trachea is midline. RESPIRATORY: Tachypneic, dyspneic. Clear to auscultation and equal bilaterally. Mild expiratory wheeze, no rhonchi. CARDIOVASCULAR: Regular rate and rhythm.No murmurs, rubs, gallops appreciated. GASTROINTESTINAL: Abdomen soft, non-tender, no peritonitis.Bowel sounds positive.No masses appreciated. BACK: No midline tenderness, no CVA tenderness EXTREMITIES: Normal motion all extremities, no cyanosis, no edema. NEUROLOGIC: Alert and oriented, no acute motor or sensory deficits, no focal weakness, cranial nerves grossly intact. SKIN: No rash, no jaundice, no diaphoresis. PSYCH: Appropriate GCS: 15 ED Course: Times/Reassessments: Patient vastly improved with normal saline bolus blood pressure has come up significantly. He looks well and he is answering questions he is agreeable to hospitalization given initial work-up and evaluation. I will note after second liter fluid patient appears quite well he is well hydrated now is not hypotensive and I do not feel further fluids are necessary at this time. Critical Care: I have personally spent 35 minutes of critical care time in the direct management of this patient. Hypotensive patient with lactic acidosis requiring fluid resuscitation and aggressive critical management. This was a life/limb threatening event. This 35 minutes is in excess of all separately billable procedures. Michael Kruse MD Past Med/Surg History Medical History (Updated 07/28/21 @ 14:16 by Michael Kurse MD) Acute and chronic respiratory failure with hypercapnia Arthritis CAD (coronary artery disease) angioplasty/KARRIE to pRCA (2014) Synergy stent (11/03/2020) after failed stress test Carotid arterial disease "no ICA stenosis.. severe left ECA stenosis" per cardiology office visit note 03/2019 > follows with Dr. Reyes in [place] Chronic obstructive pulmonary disease CKD (chronic kidney disease), stage III Diabetes IDDM DM type 2 (diabetes mellitus, type 2) GERD (gastroesophageal reflux disease) controlled Hyperkalemia Hyperlipidemia Hypertension Hypoxia Interstitial lung disease Neurogenic claudication due to lumbar spinal stenosis JAY on CPAP Peripheral arterial occlusive disease "total occlusion of the SFA and the left mid thigh area with reconstitution with collaterals and monophasic flow bilateral below knee area" per card iology office visit note 03/2019 Pulmonary nodule 1 cm or greater in diameter (08/25/20) Sleep apnea awaiting CPAP Somnolence Spinal stenosis Stroke Immediately after spinal fusion 04/2019---went into kidney failure at the same time > only deficit is sometimes he "dribbles out of the left side of his mouth" Tobacco use Urinary problem urinary hesitancy Urinary retention Surgical History (Updated 02/23/21 @ 09:17 by Caridad Servin, RN) History of arthroscopy of right shoulder History of cardiac cath stent x1 (2014) Synergy stent x1 (11/03/2020) History of colonoscopy History of elbow surgery right History of hernia surgery X2 History of lumbar spinal fusion L5-S1 decompression/fusion (09/17/19): Grade view 2, Glidescope#3, ETT 8.0 at [facility] History of melanoma excision History of repair of left rotator cuff History of thumb surgery R/L History of tonsillectomy Status post lumbar surgery Family History (Updated 04/04/21 @ 08:46 by Maryanne Morfin, ALISHA) Mother Diabetes Heart disease Cancer Lung cancer Father Cancer Oral cancer Other No family history of adverse response to anesthesia Social History (Updated 04/04/21 @ 08:51 by Maryanne Morfin RN) Smoking Status: Current every day smoker Tobacco Type: Cigarettes Cigarettes Per Day: 2; Second Hand Exposure: No; Hx Alcohol Use: Yes Alcohol type: beer and hard liquor Hx Substance Use: No Preferred Language: Sammarinese Communication Ability: Effective Visual Impairment: No Limitations Hearing Ability: Normal Worm Picker Required: No Beliefs That Will Affect Care: None Current Living Situation: Spouse current occupational status: retired Feels Safe at Home: Yes Childhood Exposure to Second-Hand Smoke: Yes Diet Comment: food choices with less carbs, uses sugar substitute Assistive Devices: None Allergies Allergies Allergy/AdvReac Type Severity Reaction Status Date / Time adhesive Allergy Mild Silk/plastic Verified 05/04/21 11:57 adhesive tape (redness, blistering) Home Meds Home Medications Medication Instructions Recorded Confirmed clopidogrel 75 mg tablet (Plavix) 75 mg PO QAM 12/23/18 07/27/21 nitroglycerin 0.4 mg sublingual 0.4 mg SL Q5M PRN 12/23/18 07/27/21 tablet pantoprazole 40 mg tablet,delayed 40 mg PO BID 12/23/18 07/27/21 release (Protonix) rosuvastatin 20 mg tablet (Crestor) 20 mg PO QAM 07/13/21 06/02/22 fluticasone furoate 100 1 inh INHALATION QAM 11/15/20 07/27/21 mcg-vilanterol 25 mcg/dose inhalation powder (Breo Ellipta) atorvastatin 20 mg tablet 20 mg PO DAILY 02/23/21 07/27/21 cholecalciferol (vitamin D3) 1,250 50,000 unit PO DAILY cap 02/23/21 07/27/21 mcg (50,000 unit) capsule docusate sodium 100 mg capsule 100 mg PO DAILY 02/23/21 07/27/21 (Colace) gabapentin 600 mg tablet 600 mg PO HS tab 02/23/21 07/27/21 (Neurontin) magnesium oxide 200 mg PO DAILY tab 02/23/21 07/27/21 citalopram 40 mg tablet (Celexa) 60 mg PO QAM tab 04/04/21 07/27/21 insulin NPH isoph U-100 human 100 0 unit SUBCUT TIDM ml 04/04/21 07/27/21 unit/mL (3 mL) subcutaneous pen (Novolin N Flexpen) insulin degludec 100 unit/mL (3 26 unit SUBCUT QAM ml 04/04/21 07/27/21 mL) subcutaneous pen (Tresiba FlexTouch U-100 insulin) valsartan 40 mg tablet (Diovan) 20 mg PO HS tab 04/04/21 07/27/21 aspirin 325 mg tablet 325 mg PO DAILY 07/27/21 07/27/21 semaglutide 1 mg/dose (4 mg/3 mL) 1 mg SUBCUT JACKSON 07/27/21 07/27/21 subcutaneous pen injector (Ozempic) Previous Rx's Medication Instructions Recorded CPAP Machine #1 ea 04/22/19 CPAP Supplies #1 ea 04/22/19 CPAP Machine #1 ea 08/10/19 albuterol sulfate 90 mcg/actuation 2 puffs INH Q6H PRN #8.5 gm 08/10/19 aerosol inhaler (Ventolin HFA) bupropion HCl (smoking deter) 150 150 mg PO BID #60 tab 03/08/21 mg tablet,12 hr sustained-release(smoking deterrent) Results & Data (ED) Vital Signs Vital Signs - 24 hr 07/27/21 17:09 07/27/21 17:38 07/27/21 17:40 Temperature 36.4 C L Temperature Source Oral Pulse Rate 88 Pulse Rate [Left] 84 Pulse Rhythm Regular Pulse Rhythm [Left] Regular Pulse Strength [Left] Normal Respiratory Rate 24 20 Respiratory Effort / Characteristics Spontaneous Non-Labored Respiratory Depth Normal Respiratory Pattern Regular Blood Pressure 94/49 L Blood Pressure [Left Arm] 130/70 Blood Pressure Mean 64 Blood Pressure Mean [Left Arm] 90 Blood Pressure Position Sitting Blood Pressure Position [Left Arm] Pulse Oximetry 99 99 100 Oxygen Delivery Method Room Air Room Air Room Air Sepsis Recent Fever Within 48 Hours No Sepsis New/Unexplained Change in Mental Status No Sepsis Action Taken by Nursing Physician Notified 07/27/21 19:04 Temperature Temperature Source Pulse Rate Pulse Rate [Left] 87 Pulse Rhythm Pulse Rhythm [Left] Regular Pulse Strength [Left] Normal Respiratory Rate 20 Respiratory Effort / Characteristics Non-Labored Respiratory Depth Normal Respiratory Pattern Blood Pressure Blood Pressure [Left Arm] 147/88 H Blood Pressure Mean Blood Pressure Mean [Left Arm] 107 Blood Pressure Position Blood Pressure Position [Left Arm] Lying Pulse Oximetry 97 Oxygen Delivery Method Room Air Sepsis Recent Fever Within 48 Hours Sepsis New/Unexplained Change in Mental Status Sepsis Action Taken by Nursing Laboratory Data Result diagrams: 07/28/21 08:04 07/28/21 08:04 Lab Results 07/27/21 07/27/21 07/27/21 Range/Units 17:34 17:34 17:34 WBC 12.38 H (4.8-10.8) K/uL RBC 4.63 L (4.7-6.1) M/uL Hgb 14.5 (14.0-18.0) g/dL Hct 42.6 (42-52) % MCV 92.0 (80-100) fL MCH 31.3 (25-34) pg MCHC 34.0 (32-36) g/dL RDW Std Deviation 50.1 H (36.4-46.3) fL RDW Coeff of Jono 14.9 H (11.5-14.5) % Plt Count 341 (130-400) K/uL MPV 9.9 (7.4-10.4) fL Immature Gran % (Auto) 0.2 % Neut % (Auto) 67.7 % Lymph % (Auto) 22.5 % [place] % (Auto) 9.0 % Eos % (Auto) 0.3 % Baso % (Auto) 0.3 % Neut # (Auto) 8.37 H (1.4-6.5) K/uL Lymph # (Auto) 2.78 (1.2-3.4) K/uL [place] # (Auto) 1.12 H (0.11-0.59) K/uL Eos # (Auto) 0.04 (0-0.5) K/uL Baso # (Auto) 0.04 (0-0.2) K/uL Immature Gran # (Auto) 0.03 H (0.00-0.02) K/uL ESR (0-20) mm/hr VBG pH (7.36-7.41) VBG pCO2 (38-50) mmHg VBG pO2 mmHg VBG HCO3 mmol/L VBG O2 Saturation % VBG Base Excess mEq/L Barometric Pressure mm/Hg Sodium (136-145) mmol/L Potassium (3.5-5.1) mmol/L Chloride (98-107) mmol/L Carbon Dioxide (21-32) mmol/L Anion Gap (3-11) BUN (6-23) mg/dl Creatinine (0.6-1.4) mg/dl Est Cr Clr Drug Dosing Est GFR ( Amer) ml/min Est GFR (Non-Af Amer) ml/min BUN/Creatinine Ratio (10-20) Glucose (70-99(Fasting)) mg/dl Osmolality (280-300) mOsm/kg Lactate 2.3 H* (0.4-2.0) mmol/L Calcium (8.5-10.1) mg/dl Magnesium (1.7-2.4) mg/dl Total Bilirubin (0.2-1.0) mg/dl AST (13-39) U/L ALT (7-52) U/L Alkaline Phosphatase (34-104) U/L Total Creatine Kinase (30-223) U/L Troponin I High Sens 64.2 H* (0-20) pg/ml Total Protein (6.0-8.3) gm/dl Albumin (3.4-5.0) gm/dl Globulin (2.5-4.0) gm/dl Albumin/Globulin Ratio (0.9-2) Procalcitonin (0-0.5) ng/ml SARS-CoV-2 (PCR) (Negative) Influenza Type A (PCR) (Neg) Influenza Type B (PCR) (Neg) RSV (RT-PCR) (Neg) 07/27/21 07/27/21 07/27/21 Range/Units 17:34 17:34 17:34 WBC (4.8-10.8) K/uL RBC (4.7-6.1) M/uL Hgb (14.0-18.0) g/dL Hct (42-52) % MCV (80-100) fL MCH (25-34) pg MCHC (32-36) g/dL RDW Std Deviation (36.4-46.3) fL RDW Coeff of Jono (11.5-14.5) % Plt Count (130-400) K/uL MPV (7.4-10.4) fL Immature Gran % (Auto) % Neut % (Auto) % Lymph % (Auto) % [place] % (Auto) % Eos % (Auto) % Baso % (Auto) % Neut # (Auto) (1.4-6.5) K/uL Lymph # (Auto) (1.2-3.4) K/uL [place] # (Auto) (0.11-0.59) K/uL Eos # (Auto) (0-0.5) K/uL Baso # (Auto) (0-0.2) K/uL Immature Gran # (Auto) (0.00-0.02) K/uL ESR 52 H (0-20) mm/hr VBG pH (7.36-7.41) VBG pCO2 (38-50) mmHg VBG pO2 mmHg VBG HCO3 mmol/L VBG O2 Saturation % VBG Base Excess mEq/L Barometric Pressure mm/Hg Sodium 134 L (136-145) mmol/L Potassium 4.1 (3.5-5.1) mmol/L Chloride 104 (98-107) mmol/L Carbon Dioxide 18 L (21-32) mmol/L Anion Gap 12 H (3-11) BUN 46 H (6-23) mg/dl Creatinine 2.37 H (0.6-1.4) mg/dl Est Cr Clr Drug Dosing Not Reportable Est GFR ( Amer) 30.1 ml/min Est GFR (Non-Af Amer) 26.0 ml/min BUN/Creatinine Ratio 19.4 (10-20) Glucose 158 H (70-99(Fasting)) mg/dl Osmolality (280-300) mOsm/kg Lactate (0.4-2.0) mmol/L Calcium 11.3 H (8.5-10.1) mg/dl Magnesium 2.0 (1.7-2.4) mg/dl Total Bilirubin 0.6 (0.2-1.0) mg/dl AST 20 (13-39) U/L ALT 12 (7-52) U/L Alkaline Phosphatase 84 (34-104) U/L Total Creatine Kinase 149 (30-223) U/L Troponin I High Sens (0-20) pg/ml Total Protein 7.2 (6.0-8.3) gm/dl Albumin 4.1 (3.4-5.0) gm/dl Globulin 3.1 (2.5-4.0) gm/dl Albumin/Globulin Ratio 1.3 (0.9-2) Procalcitonin (0-0.5) ng/ml SARS-CoV-2 (PCR) (Negative) Influenza Type A (PCR) (Neg) Influenza Type B (PCR) (Neg) RSV (RT-PCR) (Neg) 07/27/21 07/27/21 07/27/21 Range/Units 17:45 18:08 19:25 WBC (4.8-10.8) K/uL RBC (4.7-6.1) M/uL Hgb (14.0-18.0) g/dL Hct (42-52) % MCV (80-100) fL MCH (25-34) pg MCHC (32-36) g/dL RDW Std Deviation (36.4-46.3) fL RDW Coeff of Jono (11.5-14.5) % Plt Count (130-400) K/uL MPV (7.4-10.4) fL Immature Gran % (Auto) % Neut % (Auto) % Lymph % (Auto) % [place] % (Auto) % Eos % (Auto) % Baso % (Auto) % Neut # (Auto) (1.4-6.5) K/uL Lymph # (Auto) (1.2-3.4) K/uL [place] # (Auto) (0.11-0.59) K/uL Eos # (Auto) (0-0.5) K/uL Baso # (Auto) (0-0.2) K/uL Immature Gran # (Auto) (0.00-0.02) K/uL ESR (0-20) mm/hr VBG pH 7.53 H (7.36-7.41) VBG pCO2 24 L (38-50) mmHg VBG pO2 34 mmHg VBG HCO3 20 mmol/L VBG O2 Saturation 71.0 % VBG Base Excess -1.2 mEq/L Barometric Pressure 724.8 mm/Hg Sodium (136-145) mmol/L Potassium (3.5-5.1) mmol/L Chloride (98-107) mmol/L Carbon Dioxide (21-32) mmol/L Anion Gap (3-11) BUN (6-23) mg/dl Creatinine (0.6-1.4) mg/dl Est Cr Clr Drug Dosing Est GFR ( Amer) ml/min Est GFR (Non-Af Amer) ml/min BUN/Creatinine Ratio (10-20) Glucose (70-99(Fasting)) mg/dl Osmolality 301 H (280-300) mOsm/kg Lactate (0.4-2.0) mmol/L Calcium (8.5-10.1) mg/dl Magnesium (1.7-2.4) mg/dl Total Bilirubin (0.2-1.0) mg/dl AST (13-39) U/L ALT (7-52) U/L Alkaline Phosphatase (34-104) U/L Total Creatine Kinase (30-223) U/L Troponin I High Sens (0-20) pg/ml Total Protein (6.0-8.3) gm/dl Albumin (3.4-5.0) gm/dl Globulin (2.5-4.0) gm/dl Albumin/Globulin Ratio (0.9-2) Procalcitonin (0-0.5) ng/ml SARS-CoV-2 (PCR) NEGATIVE (Negative) Influenza Type A (PCR) Negative (Neg) Influenza Type B (PCR) Negative (Neg) RSV (RT-PCR) Negative (Neg) 07/27/21 07/27/21 Range/Units 19:25 19:35 WBC (4.8-10.8) K/uL RBC (4.7-6.1) M/uL Hgb (14.0-18.0) g/dL Hct (42-52) % MCV (80-100) fL MCH (25-34) pg MCHC (32-36) g/dL RDW Std Deviation (36.4-46.3) fL RDW Coeff of Jono (11.5-14.5) % Plt Count (130-400) K/uL MPV (7.4-10.4) fL Immature Gran % (Auto) % Neut % (Auto) % Lymph % (Auto) % [place] % (Auto) % Eos % (Auto) % Baso % (Auto) % Neut # (Auto) (1.4-6.5) K/uL Lymph # (Auto) (1.2-3.4) K/uL [place] # (Auto) (0.11-0.59) K/uL Eos # (Auto) (0-0.5) K/uL Baso # (Auto) (0-0.2) K/uL Immature Gran # (Auto) (0.00-0.02) K/uL ESR (0-20) mm/hr VBG pH (7.36-7.41) VBG pCO2 (38-50) mmHg VBG pO2 mmHg VBG HCO3 mmol/L VBG O2 Saturation % VBG Base Excess mEq/L Barometric Pressure mm/Hg Sodium (136-145) mmol/L Potassium (3.5-5.1) mmol/L Chloride (98-107) mmol/L Carbon Dioxide (21-32) mmol/L Anion Gap (3-11) BUN (6-23) mg/dl Creatinine (0.6-1.4) mg/dl Est Cr Clr Drug Dosing Est GFR ( Amer) ml/min Est GFR (Non-Af Amer) ml/min BUN/Creatinine Ratio (10-20) Glucose (70-99(Fasting)) mg/dl Osmolality (280-300) mOsm/kg Lactate 1.7 (0.4-2.0) mmol/L Calcium (8.5-10.1) mg/dl Magnesium (1.7-2.4) mg/dl Total Bilirubin (0.2-1.0) mg/dl AST (13-39) U/L ALT (7-52) U/L Alkaline Phosphatase (34-104) U/L Total Creatine Kinase (30-223) U/L Troponin I High Sens (0-20) pg/ml Total Protein (6.0-8.3) gm/dl Albumin (3.4-5.0) gm/dl Globulin (2.5-4.0) gm/dl Albumin/Globulin Ratio (0.9-2) Procalcitonin 0.06 (0-0.5) ng/ml SARS-CoV-2 (PCR) (Negative) Influenza Type A (PCR) (Neg) Influenza Type B (PCR) (Neg) RSV (RT-PCR) (Neg) Administered Medications Aspirin (Aspirin 325 Mg Ectab) 325 mg PO DAILY [facility] Stop: 08/27/21 08:59 Last Admin: 07/28/21 07:57 Dose: 325 mg Documented by: [id number] Bupropion HCl (Bupropion Sr 150 Mg Tabcr) 150 mg PO BID [facility] Stop: 08/27/21 08:59 Last Admin: 07/28/21 07:57 Dose: 150 mg Documented by: [id number] Citalopram Hydrobromide (Citalopram 20 Mg Tab) 60 mg PO [facility] Stop: 08/27/21 08:59 Last Admin: 07/28/21 07:57 Dose: 60 mg Documented by: [id number] Clopidogrel Bisulfate (Clopidogrel Bisulfate 75 Mg Tab) 75 mg PO [facility] Stop: 08/27/21 08:59 Last Admin: 07/28/21 07:57 Dose: 75 mg Documented by: [id number] Docusate Sodium (Docusate Sodium 100 Mg Cap) 100 mg PO DAILY [facility] Stop: 08/27/21 08:59 Last Admin: 07/28/21 08:01 Dose: 100 mg Documented by: [id number] Enoxaparin Sodium (Enoxaparin Inj 30 Mg/0.3 Ml Syr) 30 mg SQ [facility] Stop: 08/27/21 08:59 Last Admin: 07/28/21 08:01 Dose: 30 mg Documented by: [id number] Fluticasone/Vilanterol (Fluticasone/Vilanterol 100/25mcg 14 Puffs/Inhaler) 1 pu ffs INH [facility] Stop: 08/27/21 08:59 Last Admin: 07/28/21 08:01 Dose: 1 puffs Documented by: [id number] Insulin Aspart (Insulin Aspart Per Unit) 0 units SC ACHS [facility] Stop: 08/27/21 03:59 Last Admin: 07/28/21 12:16 Dose: 2 units Documented by: [id number] Cosigned by: [id number] Admin: 07/28/21 08:09 Dose: Not Given Documented by: [id number] Admin: 07/28/21 04:30 Dose: Not Given Documented by: [id number] Pantoprazole Sodium (Pantoprazole 40 Mg Tab) 40 mg PO BID [facility] Stop: 08/26/21 21:59 Last Admin: 07/28/21 07:57 Dose: 40 mg Documented by: [id number] Admin: 07/28/21 00:28 Dose: 40 mg Documented by: [id number] Rosuvastatin Calcium (Rosuvastatin Calcium 20 Mg Tab) 20 mg PO [facility] Stop: 08/27/21 08:59 Last Admin: 07/28/21 07:58 Dose: 20 mg Documented by: [id number] Discontinued Medications Bupropion HCl (Bupropion Sr 150 Mg Tabcr) 150 mg PO ONE STA Stop: 07/27/21 21:58 Last Admin: 07/27/21 22:24 Dose: 150 mg Documented by: [id number] Diphtheria/Pertussis/Tetanus Vacc (Diphtheria/Tetanus/Pertussis 0.5 Ml Syr/Vial) 0.5 ml IM .ONCE ONE Stop: 07/27/21 21:22 Last Admin: 07/27/21 22:23 Dose: 0.5 ml Documented by: [id number] Sodium Chloride (Nss) 500 mls @ 999 mls/hr IV .Q31M ONE Stop: 07/27/21 17:41 Last Infusion: 07/27/21 18:16 Dose: 0 mls/hr Documented by: [id number] Admin: 07/27/21 17:42 Dose: 999 mls/hr Documented by: [id number] Sodium Chloride (Nss 1000ml) 1,000 mls @ 999 mls/hr IV .Q1H1M ONE Stop: 07/27/21 19:59 Last Infusion: 07/27/21 20:07 Dose: 0 mls/hr Documented by: [id number] Admin: 07/27/21 19:06 Dose: 999 mls/hr Documented by: [id number] Cefepime HCl (Maxipime) 2,000 mg in 20 mls @ 5 mls/min IV NOW STA; Protocol Stop: 07/27/21 19:24 Last Admin: 07/27/21 19:43 Dose: 5 mls/min Documented by: [id number] Insulin Human Regular 5 units/ (Syringe) 5 mls @ 30 mls/min IV ONE ONE Stop: 07/28/21 00:31 Last Admin: 07/28/21 00:28 Dose: 30 mls/min Documented by: [id number] Cosigned by: [id number] Parenteral Electrolytes (Plasma-Lyte A) 1,000 mls @ 100 mls/hr IV .Q10H MONI Stop: 07/28/21 11:29 Last Infusion: 07/28/21 13:36 Dose: 0 mls/hr Documented by: [id number] Admin: 07/28/21 03:23 Dose: 100 mls/hr Documented by: [id number] Insulin Aspart (Insulin Aspart Per Unit) 0 units SC ONE ONE Stop: 07/28/21 00:31 Last Admin: 07/28/21 00:35 Dose: 11 units Documented by: [id number] Cosigned by: [id number] Insulin Glargine (Insulin Glargine Solostar 100 Units/Ml 3 Ml Pen) 10 units SC ONE ONE Stop: 07/28/21 00:31 Last Admin: 07/28/21 00:30 Dose: 10 units Documented by: [id number] Cosigned by: [id number] Imaging Data Radiologist's Impression: Chest CT 07/27/21 21:30 CT chest diagnostic wo con CT DOSE: 410.59 mGy.cm HISTORY: rib fracture chest mass TECHNIQUE: Multiaxial CT images of the chest were performed without contrast. A dose lowering technique was utilized adhering to the principles of ALARA. COMPARISON: Chest CT 04/13/2021. FINDINGS: There is an old nonunited fracture of the right coracoid process. Advanced degenerative changes within the right sternoclavicular joint. Old left- sided rib fractures are again noted. This includes a nonunited left lateral seventh rib fracture. There is a spiculated 1.8 x 1.3 cm nodule within the left upper lobe on image 137. This abuts the adjacent pleura results in mild pleural thickening at this location. This is similar in size compared to the prior chest CT. No pneumothorax. No pleural effusions. Chronic interstitial thickening and scattered peripheral groundglass densities remain unchanged. There is mild emphysema. Stable 1.2 cm subpleural nodule within the right lower lobe abutting the major fissure. There are few additional tiny peripheral nodules within the right mid to lower lung zone. These are also unchanged. Calcified granuloma again noted within the right lower lobe. No new focal lung consolidations to suggest pneumonia. No evidence for pulmonary edema. Mild diffuse bronchial wall thickening. The central airways remain patent. No mediastinal or hilar lymphadenopathy. Calcified subcarinal and right hilar lymph nodes are again noted. The heart is normal in size. No pericardial effusion. A few scattered punctate calcified granulomas within the liver and spleen. Adrenal glands are unremarkable. Renal calcifications are again noted. Normal esophagus. Mild calcified plaque within the normal caliber thoracic aorta. IMPRESSION: 1. No significant change in the 1.8 cm spiculated nodule within the left upper lobe. 2. Emphysema and chronic interstitial thickening persists. 3. Additional stable findings as described above. ACT 112: Negative or not required by law. Electronically signed by: Ed Rodríguez M.D. 07/28/2021 9:08 AM Discharge Plan Visit Data Chief Complaint: Illness Stated Complaint: SOB, FEVER, HYPER, DIZZINESS, HEADACHE ED Provider: Michael Kruse Discharge Problem: Acute kidney injury, Acidosis, lactic, Acute hypotension, Acute dehydration Patient Disposition: Admitted As Inpatient Discharge Instructions Interventions: ED Discharge Assessment Last Done: 07/27/21 22:41
[2021-07-27 17:55] LABS: Basophils # (auto) 0.04 K/uL (0-0.2); Basophils % (auto) 0.3 %; Eosinophils # (auto) 0.04 K/uL (0-0.5); Eosinophils % (auto) 0.3 %; Hematocrit (blood only) 42.6 % (42-52); Hemoglobin 14.5 g/dL (14.0-18.0); Immature Granulocytes # (auto) 0.03 K/uL (0.00-0.02); Immature Granulocytes % (auto) 0.2 %; Lymphocytes # (auto) 2.78 K/uL (1.2-3.4); Lymphocytes % (auto) 22.5 %; Mean Corpuscular Hemoglobin 31.3 pg (25-34); Mean Platelet Volume 9.9 fL (7.4-10.4); Monocytes # (auto) 1.12 K/uL (0.11-0.59); Neutrophils # (auto) 8.37 K/uL (1.4-6.5); Neutrophils % (auto) 67.7 %; Platelet Count 341 K/uL (130-400); RDW Coefficient of Variation 14.9 % (11.5-14.5); RDW Standard Deviation 50.1 fL (36.4-46.3); Red Blood Count 4.63 M/uL (4.7-6.1); White Blood Count 12.38 K/uL (4.8-10.8)
[2021-07-27 18:04] LABS: Alanine Aminotransferase 12 U/L (7-52); Albumin Globulin Ratio 1.3 (0.9-2); Albumin Level 4.1 gm/dl (3.4-5.0); Alkaline Phosphatase 84 U/L (34-104); Anion Gap 12 (3-11); Aspartate Aminotransferase 20 U/L (13-39); BUN Creatinine Ratio 19.4 (10-20); Bilirubin,Total 0.6 mg/dl (0.2-1.0); Blood Urea Nitrogen 46 mg/dl (6-23); Calcium 11.3 mg/dl (8.5-10.1); Carbon Dioxide 18 mmol/L (21-32); Chloride 104 mmol/L (98-107); Est GFR (African American) 30.1 ml/min; Globulin 3.1 gm/dl (2.5-4.0); Glucose 158 mg/dl (70-99(Fasting)); Potassium 4.1 mmol/L (3.5-5.1); Sodium 134 mmol/L (136-145); Total Protein 7.2 gm/dl (6.0-8.3)
[2021-07-27 18:41] LABS: Base Excess VBG -1.2 mEq/L; pH VBG 7.53 (7.36-7.41)
[2021-07-27 18:44] LABS: Influenza A virus by PCR Negative (Neg); Influenza B virus by PCR Negative (Neg); RSV by PCR Negative (Neg); SARS CoV2 RNA(COVID-19) InHosp NEGATIVE (Negative)
[2021-07-27] MEDS ORDERED: SODIUM CHLORIDE 0.9% 1000ML 1,000 ML IV ONE (18:59)
[2021-07-27] MEDS ORDERED: CEFEPIME 2,000 MG/20 ML VIAL IV STA (19:21)
--- NOTE | 2021-07-27 20:20 | History & Physical Report ---
Date of Service July 27, 2021 Assessment & Plan (1) Lung cancer: (2) Chest pain: (3) Peripheral arterial occlusive disease: (4) GERD (gastroesophageal reflux disease): (5) DM type 2 (diabetes mellitus, type 2): (6) CAD (coronary artery disease): (7) CKD (chronic kidney disease), stage III: (8) Hyperlipidemia: (9) Chronic obstructive pulmonary disease: Plan: 75yo Male PMH Lung cancer s/p radiation DM2 CAD with stentx2, PAD with 2 groin stends and stents in legs, CKD3, HLD, COPD here for evaluation of weakness fatigue. Found to have elevated troponin and chest pain. ()Chest Pain Left anterior rib bordering abdomen -pain on palpation increases suspicion of rib fracture -combined with elevated troponin possible pericarditis, myocarditis -WBC 12.38 possible reactive -Lactate 2.3, recieved 2L NS 1x cefepime in ED, recheck 1.7 -CXR demonstrates COPD normal heart size difficult to evaluate ribs -CT chest w/o contrast: mass noted on left lung -Bcx, UA pending -depending on patient's clinical picture can consider continued abx -recheck BMP, CBC am ()Alkalosis -possible hyperventilation -pH 7.53, CO2 24, bicarb 18 -no pain on deep inspiration expiration -continue to monitor ()Elevated Trop -Trop 64.2 repeat pending -EKG unremarkable (unchanged from prev) -Low suspicion DVT, PE -Echo in AM ()Elevated Lactate -fine crackles at base, no infiltrate noted on CXR, low risk PNA -COVID flue RSV neg -lactate 2.3 recheck 1.7, continue to monitor for signs of infection -recieved 1x cefepime in ED -ordered ESR, CRP, Procal ()Marcella Can cut -order tdap vaccine ()COPD, Tobacco Abuse -continue albuterol, breo ellipta -ordered smoking cessation counselling -continue bupropion ()DM2 -consulted glycemic management ()CAD -continue aspirin 325, plavix ()GERD -continue protonix ()HLD -continue rosuvastatin ()HTN -continue valsartan ()Depression -continue citalopram FENa: carb consistent DM2 Code Status: Full DVT PPX: lovenox 30mg, ASA plavix PT/OT: not ordered Case Management: pending Dispo: med/tele admit inYessi Dexter Do PGY 1, FCM History of Present Illness Chief Complaint: Fatigue Weakness Chest Pain Primary Care Provider: Duran Singh 75yo Male PMH Lung cancer s/p radiation DM2 CAD with stentx2, PAD with 2 groin stends and stents in legs, CKD3, HLD, COPD here for evaluation of weakness fatigue. States 4-5 days ago he woke up and started feeling off, felt jittery dizziness headache slight blurry vision SOB calves hurt panting felt hot and cold, sweating coughing spitting up white mucus, had green sinus discharge and decreased appetite. Had no new medication food injuries, last fall was several weeks ago.This would occur on and off throughout the days. Per the next day he continued to have symptoms but would also lay down exhausted. 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 Patient called PCP who directed him to the ED. Patient states he has left sided chest pain worse with palpation jumps off bed when press on anterior left chest by abdomen, states better laying on left side. States no recent falls, does have history of rib fractures. Last radiation therapy in April. At this time describes mild headache dizziness blurred vision. He has not needed to use his home nitro. He states he also got a cut on his left leg from a marcella can, unsure when last tetanus shot was. He smokes 1.5 packs a day since he was 9 years old, no alcohol or illicit drugs. PSH tonsils back and right shoulder surgery, has some residual right shoulder pain. No history blood clots. In ED found to have troponin 64.2, lactate 2.3, given 2L NS and 1x cefepime. Allergies Allergy/AdvReac Type Severity Reaction Status Date / Time adhesive Allergy Mild Silk/plastic Verified 05/04/21 11:57 adhesive tape (redness, blistering) Home Medications Medication Instructions Recorded Confirmed Type clopidogrel 75 mg tablet (Plavix) 75 mg PO QAM 12/23/18 07/27/21 History nitroglycerin 0.4 mg sublingual 0.4 mg SL Q5M PRN 12/23/18 07/27/21 History tablet pantoprazole 40 mg tablet,delayed 40 mg PO BID 12/23/18 07/27/21 History release (Protonix) CPAP Machine #1 ea 04/22/19 05/04/21 Rx CPAP Supplies #1 ea 04/22/19 05/04/21 Rx CPAP Machine #1 ea 08/10/19 05/04/21 Rx albuterol sulfate 90 mcg/actuation 2 puffs INH Q6H PRN #8.5 gm 08/10/19 07/27/21 Rx aerosol inhaler (Ventolin HFA) rosuvastatin 20 mg tablet (Crestor) 20 mg PO QAM 09/06/20 07/27/21 History fluticasone furoate 100 1 inh INHALATION QAM 11/15/20 07/27/21 History mcg-vilanterol 25 mcg/dose inhalation powder (Breo Ellipta) atorvastatin 20 mg tablet 20 mg PO DAILY 02/23/21 07/27/21 History cholecalciferol (vitamin D3) 1,250 50,000 unit PO DAILY cap 02/23/21 07/27/21 History mcg (50,000 unit) capsule docusate sodium 100 mg capsule 100 mg PO DAILY 02/23/21 07/27/21 History (Colace) gabapentin 600 mg tablet 600 mg PO HS tab 02/23/21 07/27/21 History (Neurontin) magnesium oxide 200 mg PO DAILY tab 02/23/21 07/27/21 History bupropion HCl (smoking deter) 150 150 mg PO BID #60 tab 03/08/21 07/27/21 Rx mg tablet,12 hr sustained-release(smoking deterrent) citalopram 40 mg tablet (Celexa) 60 mg PO QAM tab 04/04/21 07/27/21 History insulin NPH isoph U-100 human 100 0 unit SUBCUT TIDM ml 04/04/21 07/27/21 History unit/mL (3 mL) subcutaneous pen (Novolin N Flexpen) insulin degludec 100 unit/mL (3 26 unit SUBCUT QAM ml 04/04/21 07/27/21 History mL) subcutaneous pen (Tresiba FlexTouch U-100 insulin) valsartan 40 mg tablet (Diovan) 20 mg PO HS tab 04/04/21 07/27/21 History aspirin 325 mg tablet 325 mg PO DAILY 07/27/21 07/27/21 History semaglutide 1 mg/dose (4 mg/3 mL) 1 mg SUBCUT JACKSON 07/27/21 07/27/21 History subcutaneous pen injector (Ozempic) Past Med/Surg History Medical History (Updated 07/27/21 @ 22:26 by Yessi Plunkett DO) Acute and chronic respiratory failure with hypercapnia Arthritis CAD (coronary artery disease) angioplasty/KARRIE to pRCA (2014) Synergy stent (11/03/2020) after failed stress test Carotid arterial disease "no ICA stenosis.. severe left ECA stenosis" per cardiology office visit note 03/2019 > follows with Dr. Reyes in [place] Chronic obstructive pulmonary disease CKD (chronic kidney disease), stage III Diabetes IDDM DM type 2 (diabetes mellitus, type 2) GERD (gastroesophageal reflux disease) controlled Hyperkalemia Hyperlipidemia Hypertension Hypoxia Interstitial lung disease Neurogenic claudication due to lumbar spinal stenosis JAY on CPAP Peripheral arterial occlusive disease "total occlusion of the SFA and the left mid thigh area with reconstitution with collaterals and monophasic flow bilateral below knee area" per cardiology office visit note 03/2019 Pulmonary nodule 1 cm or greater in diameter (08/25/20) Sleep apnea awaiting CPAP Somnolence Spinal stenosis Stroke Immediately after spinal fusion 04/2019---went into kidney failure at the same time > only deficit is sometimes he "dribbles out of the left side of his mouth" Tobacco use Urinary problem urinary hesitancy Urinary retention Surgical History (Updated 02/23/21 @ 09:17 by Caridad Servin RN) History of arthroscopy of right shoulder History of cardiac cath stent x1 (2014) Synergy stent x1 (11/03/2020) History of colonoscopy History of elbow surgery right History of hernia surgery X2 History of lumbar spinal fusion L5-S1 decompression/fusion (09/17/19): Grade view 2, Glidescope#3, ETT 8.0 at [facility] History of melanoma excision History of repair of left rotator cuff History of thumb surgery R/L History of tonsillectomy Status post lumbar surgery Family History (Updated 04/04/21 @ 08:46 by Maryanne Morfin, ALISHA) Mother Diabetes Heart disease Cancer Lung cancer Father Cancer Oral cancer Other No family history of adverse response to anesthesia Social History (Updated 04/04/21 @ 08:51 by Maryanne Morfin, RN) Smoking Status: Current every day smoker Tobacco Type: Cigarettes Cigarettes Per Day: 2; Second Hand Exposure: No; Hx Alcohol Use: Yes Alcohol type: beer and hard liquor Hx Substance Use: No Preferred Language: Mohawk Communication Ability: Effective Visual Impairment: No Limitations Hearing Ability: Normal Tow Car Driver Required: No Beliefs That Will Affect Care: None Current Living Situation: Spouse current occupational status: retired Feels Safe at Home: Yes Childhood Exposure to Second-Hand Smoke: Yes Diet Comment: food choices with less carbs, uses sugar substitute Assistive Devices: Glasses Review of Systems Review of Systems: see hpi Physical Exam Constitutional: well developed, well nourished, cooperative and comfortable Eyes: PERRL, conjunctivae normal, anicteric sclerae ENMT: external ear and nose normal, oropharynx normal Neck: trachea midline, no thyromegaly Respiratory: normal respiratory effort Auscultation: + crackles (fine crackles b/l bases); no wheezes Cardiovascular: RRR, no murmur, no edema Chest (Breasts): Chest: normal inspection of chest Additional Comments: Palpation of left chest pain disproportionate to exam Gastrointestinal (Abdomen): normal bowel sounds, soft, nontender, no hepa tosplenomegaly Musculoskeletal: no cyanosis or clubbing, extremities motor strength 5/5 Skin: no rashes, warm and dry Neurologic: CN2-12 intact b/l Psychiatric: A+Ox3, euthymic affect Results & Data Results & Data ([facility]) Vital Signs (Past 12 Hours) Vital Signs Temp Pulse Pulse Resp BP BP Pulse Ox 07/27/21 17:40 84 20 130/70 100 07/27/21 17:38 99 07/27/21 17:09 36.4 C L 88 24 94/49 L 99 Laboratory Results 07/27/21 07/27/21 07/27/21 Range/Units 19:35 19:25 19:25 WBC (4.8-10.8) K/uL RBC (4.7-6.1) M/uL Hgb (14.0-18.0) g/dL Hct (42-52) % MCV (80-100) fL MCH (25-34) pg MCHC (32-36) g/dL RDW Std Deviation (36.4-46.3) fL RDW Coeff of Jono (11.5-14.5) % Plt Count (130-400) K/uL MPV (7.4-10.4) fL Immature Gran % (Auto) % Neut % (Auto) % Lymph % (Auto) % Bureau % (Auto) % Eos % (Auto) % Baso % (Auto) % Neut # (Auto) (1.4-6.5) K/uL Lymph # (Auto) (1.2-3.4) K/uL Bureau # (Auto) (0.11-0.59) K/uL Eos # (Auto) (0-0.5) K/uL Baso # (Auto) (0-0.2) K/uL Immature Gran # (Auto) (0.00-0.02) K/uL VBG pH (7.36-7.41) VBG pCO2 (38-50) mmHg VBG pO2 mmHg VBG HCO3 mmol/L VBG O2 Saturation % VBG Base Excess mEq/L Barometric Pressure mm/Hg Sodium (136-145) mmol/L Potassium (3.5-5.1) mmol/L Chloride (98-107) mmol/L Carbon Dioxide (21-32) mmol/L Anion Gap (3-11) BUN (6-23) mg/dl Creatinine (0.6-1.4) mg/dl Est Cr Clr Drug Dosing Est GFR ( Amer) ml/min Est GFR (Non-Af Amer) ml/min BUN/Creatinine Ratio (10-20) Glucose (70-99(Fasting)) mg/dl Osmolality 301 H (280-300) mOsm/kg Lactate 1.7 (0.4-2.0) mmol/L Calcium (8.5-10.1) mg/dl Magnesium (1.7-2.4) mg/dl Total Bilirubin (0.2-1.0) mg/dl AST (13-39) U/L ALT (7-52) U/L Alkaline Phosphatase (34-104) U/L Total Creatine Kinase (30-223) U/L Troponin I High Sens (0-20) pg/ml Total Protein (6.0-8.3) gm/dl Albumin (3.4-5.0) gm/dl Globulin (2.5-4.0) gm/dl Albumin/Globulin Ratio (0.9-2) Procalcitonin 0.06 (0-0.5) ng/ml SARS-CoV-2 (PCR) (Negative) Influenza Type A (PCR) (Neg) Influenza Type B (PCR) (Neg) RSV (RT-PCR) (Neg) 07/27/21 07/27/21 07/27/21 Range/Units 18:08 17:45 17:34 WBC (4.8-10.8) K/uL RBC (4.7-6.1) M/uL Hgb (14.0-18.0) g/dL Hct (42-52) % MCV (80-100) fL MCH (25-34) pg MCHC (32-36) g/dL RDW Std Deviation (36.4-46.3) fL RDW Coeff of Jono (11.5-14.5) % Plt Count (130-400) K/uL MPV (7.4-10.4) fL Immature Gran % (Auto) % Neut % (Auto) % Lymph % (Auto) % Bureau % (Auto) % Eos % (Auto) % Baso % (Auto) % Neut # (Auto) (1.4-6.5) K/uL Lymph # (Auto) (1.2-3.4) K/uL Bureau # (Auto) (0.11-0.59) K/uL Eos # (Auto) (0-0.5) K/uL Baso # (Auto) (0-0.2) K/uL Immature Gran # (Auto) (0.00-0.02) K/uL VBG pH 7.53 H (7.36-7.41) VBG pCO2 24 L (38-50) mmHg VBG pO2 34 mmHg VBG HCO3 20 mmol/L VBG O2 Saturation 71.0 % VBG Base Excess -1.2 mEq/L Barometric Pressure 724.8 mm/Hg Sodium (136-145) mmol/L Potassium (3.5-5.1) mmol/L Chloride (98-107) mmol/L Carbon Dioxide (21-32) mmol/L Anion Gap (3-11) BUN (6-23) mg/dl Creatinine (0.6-1.4) mg/dl Est Cr Clr Drug Dosing Est GFR ( Amer) ml/min Est GFR (Non-Af Amer) ml/min BUN/Creatinine Ratio (10-20) Glucose (70-99(Fasting)) mg/dl Osmolality (280-300) mOsm/kg Lactate (0.4-2.0) mmol/L Calcium (8.5-10.1) mg/dl Magnesium (1.7-2.4) mg/dl Total Bilirubin (0.2-1.0) mg/dl AST (13-39) U/L ALT (7-52) U/L Alkaline Phosphatase (34-104) U/L Total Creatine Kinase 149 (30-223) U/L Troponin I High Sens (0-20) pg/ml Total Protein (6.0-8.3) gm/dl Albumin (3.4-5.0) gm/dl Globulin (2.5-4.0) gm/dl Albumin/Globulin Ratio (0.9-2) Procalcitonin (0-0.5) ng/ml SARS-CoV-2 (PCR) NEGATIVE (Negative) Influenza Type A (PCR) Negative (Neg) Influenza Type B (PCR) Negative (Neg) RSV (RT-PCR) Negative (Neg) 07/27/21 07/27/21 07/27/21 Range/Units 17:34 17:34 17:34 WBC (4.8-10.8) K/uL RBC (4.7-6.1) M/uL Hgb (14.0-18.0) g/dL Hct (42-52) % MCV (80-100) fL MCH (25-34) pg MCHC (32-36) g/dL RDW Std Deviation (36.4-46.3) fL RDW Coeff of Jono (11.5-14.5) % Plt Count (130-400) K/uL MPV (7.4-10.4) fL Immature Gran % (Auto) % Neut % (Auto) % Lymph % (Auto) % Bureau % (Auto) % Eos % (Auto) % Baso % (Auto) % Neut # (Auto) (1.4-6.5) K/uL Lymph # (Auto) (1.2-3.4) K/uL Bureau # (Auto) (0.11-0.59) K/uL Eos # (Auto) (0-0.5) K/uL Baso # (Auto) (0-0.2) K/uL Immature Gran # (Auto) (0.00-0.02) K/uL VBG pH (7.36-7.41) VBG pCO2 (38-50) mmHg VBG pO2 mmHg VBG HCO3 mmol/L VBG O2 Saturation % VBG Base Excess mEq/L Barometric Pressure mm/Hg Sodium 134 L (136-145) mmol/L Potassium 4.1 (3.5-5.1) mmol/L Chloride 104 (98-107) mmol/L Carbon Dioxide 18 L (21-32) mmol/L Anion Gap 12 H (3-11) BUN 46 H (6-23) mg/dl Creatinine 2.37 H (0.6-1.4) mg/dl Est Cr Clr Drug Dosing Not Reportable Est GFR ( Amer) 30.1 ml/min Est GFR (Non-Af Amer) 26.0 ml/min BUN/Creatinine Ratio 19.4 (10-20) Glucose 158 H (70-99(Fasting)) mg/dl Osmolality (280-300) mOsm/kg Lactate 2.3 H* (0.4-2.0) mmol/L Calcium 11.3 H (8.5-10.1) mg/dl Magnesium 2.0 (1.7-2.4) mg/dl Total Bilirubin 0.6 (0.2-1.0) mg/dl AST 20 (13-39) U/L ALT 12 (7-52) U/L Alkaline Phosphatase 84 (34-104) U/L Total Creatine Kinase (30-223) U/L Troponin I High Sens 64.2 H* (0-20) pg/ml Total Protein 7.2 (6.0-8.3) gm/dl Albumin 4.1 (3.4-5.0) gm/dl Globulin 3.1 (2.5-4.0) gm/dl Albumin/Globulin Ratio 1.3 (0.9-2) Procalcitonin (0-0.5) ng/ml SARS-CoV-2 (PCR) (Negative) Influenza Type A (PCR) (Neg) Influenza Type B (PCR) (Neg) RSV (RT-PCR) (Neg) 07/27/21 Range/Units 17:34 WBC 12.38 H (4.8-10.8) K/uL RBC 4.63 L (4.7-6.1) M/uL Hgb 14.5 (14.0-18.0) g/dL Hct 42.6 (42-52) % MCV 92.0 (80-100) fL MCH 31.3 (25-34) pg MCHC 34.0 (32-36) g/dL RDW Std Deviation 50.1 H (36.4-46.3) fL RDW Coeff of Jono 14.9 H (11.5-14.5) % Plt Count 341 (130-400) K/uL MPV 9.9 (7.4-10.4) fL Immature Gran % (Auto) 0.2 % Neut % (Auto) 67.7 % Lymph % (Auto) 22.5 % Bureau % (Auto) 9.0 % Eos % (Auto) 0.3 % Baso % (Auto) 0.3 % Neut # (Auto) 8.37 H (1.4-6.5) K/uL Lymph # (Auto) 2.78 (1.2-3.4) K/uL Bureau # (Auto) 1.12 H (0.11-0.59) K/uL Eos # (Auto) 0.04 (0-0.5) K/uL Baso # (Auto) 0.04 (0-0.2) K/uL Immature Gran # (Auto) 0.03 H (0.00-0.02) K/uL VBG pH (7.36-7.41) VBG pCO2 (38-50) mmHg VBG pO2 mmHg VBG HCO3 mmol/L VBG O2 Saturation % VBG Base Excess mEq/L Barometric Pressure mm/Hg Sodium (136-145) mmol/L Potassium (3.5-5.1) mmol/L Chloride (98-107) mmol/L Carbon Dioxide (21-32) mmol/L Anion Gap (3-11) BUN (6-23) mg/dl Creatinine (0.6-1.4) mg/dl Est Cr Clr Drug Dosing Est GFR ( Amer) ml/min Est GFR (Non-Af Amer) ml/min BUN/Creatinine Ratio (10-20) Glucose (70-99(Fasting)) mg/dl Osmolality (280-300) mOsm/kg Lactate (0.4-2.0) mmol/L Calcium (8.5-10.1) mg/dl Magnesium (1.7-2.4) mg/dl Total Bilirubin (0.2-1.0) mg/dl AST (13-39) U/L ALT (7-52) U/L Alkaline Phosphatase (34-104) U/L Total Creatine Kinase (30-223) U/L Troponin I High Sens (0-20) pg/ml Total Protein (6.0-8.3) gm/dl Albumin (3.4-5.0) gm/dl Globulin (2.5-4.0) gm/dl Albumin/Globulin Ratio (0.9-2) Procalcitonin (0-0.5) ng/ml SARS-CoV-2 (PCR) (Negative) Influenza Type A (PCR) (Neg) Influenza Type B (PCR) (Neg) RSV (RT-PCR) (Neg) Supervising Physician Co-Signing Physician Notes Patient seen and examined, chart reviewed, case discussed with Dr. Plunkett and I agree with the assessment and plan as above. In brief, patient is a 75yo male with history of lung CA s/p XRT, CAD, DM, PAD, CKD and COPD presenting with weakness and fatigue. Patient has been feeling dizzy, "jittery", BOLIVAR with blurred vision, elevated BSG of 300 - 400. Also with tachypnea, tremors, chills, increased urination Cut on LLE from a tomato cage - possibly marcella. Last Tdap 09/27/20 by record review Given Cefepime in ER On exam he is afebrile, HD stable, nontoxic in appearance but appears restless Skin - cut on LLE with no erythema, cellulitis, crepitus or bullae HEENT -NC/AT, PERRL, MMM Heart - +S1/S2, regular, pain with palpation of left chest wall Lungs - CTA Abd - +BS, soft, NT/ND Ext - no edema Labs and images reviewed Patient with stable leukocytosis - WBC=12.38 (baseline 12-18 over the last 2 years with neutrophil predominance), procalcitonin is negative at 0.06 Elevation of Hgb and Hct compared to baseline - ?hemoconcentration/dehydration Elevation of ESR and CRP Chemistry with AGMA with gap of 12, HCO3 of 18, elevated BUN of 46 (from baseline of 30) and Cr of 2.37 (from baseline of 1.5) with respiratory alkalosis Elevated glucose 352 Elevated Ca 11.3 Troponin of 64.2 --> 49.8 Assessment/plan - 75yo male with DM, HTN, HLP, PAD, Lung CA and COPD presenting with weakness and fatigue as well as feeling jittery, BOLIVAR, blurred vision. Possibly secondary to hyperglycemia, dehydration suggested on labs. Consideration to infection - WBC stable, procalcitonin negative, no overt source identified thus far. Weakness/Fatigue:-IVF - Normosol 100mL/hr x 1 liters, Will hold additional antibiotics for now and follow cultures Hyperglycemia - 5u IV insulin given, start Lantus 10u BID with ISS, Glycemic management consultation ordered. Repeat blood sugar 158 Mild hypercalcemia - Ca=11.3. Patient with known malignancy. Will check Ionized Ca, PTH and Vitamin D level for now. JAVED - IVF as above, avoid nephrotoxic agents, will hold Losartan PAD - Continue ASA/Plavix/Crestor Anxiety - Continue Bupropion, Citalopram Remainder of plan as above Resident Activity Tracking Resident Involvement: Resident Care Provided Care Provided: Adult [facility]
[2021-07-27] MEDS ORDERED: DIPHTHERIA/TETANUS/PERTUSSIS 0.5 ML SYR/VIAL IM ONE (21:21)
[2021-07-27] MEDS ORDERED: ACETAMINOPHEN 325 MG TAB PO PRN (21:42)
[2021-07-27] MEDS ORDERED: ONDANSETRON INJ 2 MG/ML 2 ML VIAL IV PRN (21:42)
[2021-07-27] MEDS ORDERED: POLYETHYLENE (MIRALAX) 17 GM PACK PO PRN (21:42)
[2021-07-27] MEDS ORDERED: ALBUTEROL HFA 8 GM INHALER INH PRN (21:46)
[2021-07-27] MEDS ORDERED: buPROPion SR 150 MG TABCR PO STA (21:57)
[2021-07-27] MEDS ORDERED: PHARMACY GLYCEMIC MGMT CONSULT PRN (22:11)
[2021-07-27] MEDS ORDERED: DEXTROSE 50% 50 ML SYRINGE IV PRN (23:03)
[2021-07-27] MEDS ORDERED: GLUCAGON FOR INJ 1 MG VIAL SQ PRN (23:03)
[2021-07-27] MEDS ORDERED: GLUCOSE 10 TABS/TUBE PO PRN (23:03)
[2021-07-27] MEDS ORDERED: GLUCOSE 40% GEL 15 GM TUBE PO PRN (23:03)
[2021-07-27] MEDS ORDERED: CARBOHYDRATES FOR HYPOGLYCEMIA PO PRN (23:03)
[2021-07-28 00:23] LABS: C Reactive Protein 0.9 mg/dl (0-0.5)
[2021-07-28] MEDS: PANTOprazole 40 MG TAB PO SCH ×2 (00:28→07:57)
[2021-07-28] MEDS ORDERED: INSULIN HUMAN REGULAR PER UNIT 5 UNITS in SYRINGE 4.95 ML IV ONE (00:30)
[2021-07-28] MEDS ORDERED: INSULIN GLARGINE SOLOSTAR 100 UNITS/ML 3 ML PEN SC ONE (00:30)
[2021-07-28] MEDS ORDERED: INSULIN ASPART PER UNIT SC ONE (00:30)
[2021-07-28 00:51] LABS: Troponin I High Sensitivity 49.8 pg/ml (0-20)
[2021-07-28 01:01] LABS: Appearance Urine Clear (Clear); Bacteria Urine Automated Negative (Negative); Bilirubin Urine Negative (Negative); Blood Urine Negative (Negative); Color Urine Yellow; Glucose Urine UA Trace (Negative); Ketones Urine 1+ (Negative); Leukocyte Esterase Urine Negative (Negative); Nitrite Urine Negative (Negative); Protein Urine 2+ (Negative); RBC Urine Automated 0-4 /hpf (0-4); Specific Gravity Urine 1.019 (1.000-1.030); Urobilinogen Urine Negative (Negative)
--- NOTE | 2021-07-28 01:04 | Billing Data ---
Date of Service July 27, 2021 Coding Level of Care Code 72235 Initial Inpt Care Lvl 3
[2021-07-28] MEDS ORDERED: NORMOSOL-R 1,000 ML IV SCH (01:30)
[2021-07-28] MEDS: INSULIN ASPART PER UNIT SC SCH ×3 (04:30→12:16)
--- NOTE | 2021-07-28 07:27 | Hospitalist Progress Note ---
Date of Service July 28, 2021 Assessment & Plan (1) Lung cancer: Plan: 75yo Male PMH Lung cancer s/p radiation DM2 CAD with stentx2, PAD with 2 groin stends and stents in legs, CKD3, HLD, COPD here for evaluation of weakness fatigue. Found to have elevated troponin and chest pain. ()Chest Pain Left anterior rib bordering abdomen -pain on palpation increases suspicion of rib fracture -combined with elevated troponin possible pericarditis, myocarditis -WBC 12.38 possible reactive -Lactate 2.3, recieved 2L NS 1x cefepime in ED, recheck 1.7 -CXR demonstrates COPD normal heart size difficult to evaluate ribs -CT chest w/o contrast: mass noted on left lung -Bcx, UA pending -depending on patient's clinical picture can consider continued abx -recheck BMP, CBC am ()Alkalosis -possible hyperventilation -pH 7.53, CO2 24, bicarb 18 -no pain on deep inspiration expiration -continue to monitor ()Elevated Trop -Trop 64.2 repeat pending -EKG unremarkable (unchanged from prev) -Low suspicion DVT, PE -Echo in AM ()Elevated Lactate -fine crackles at base, no infiltrate noted on CXR, low risk PNA -COVID flue RSV neg -lactate 2.3 recheck 1.7, continue to monitor for signs of infection -recieved 1x cefepime in ED -ordered ESR, CRP, Procal ()Sean Can cut -order tdap vaccine ()COPD, Tobacco Abuse -continue albuterol, breo ellipta -ordered smoking cessation counselling -continue bupropion ()DM2 -consulted glycemic management ()CAD -continue aspirin 325, plavix ()GERD -continue protonix ()HLD -continue rosuvastatin ()HTN -continue valsartan ()Depression -continue citalopram FENa: carb consistent DM2 Code Status: Full DVT PPX: lovenox 30mg, ASA plavix PT/OT: not ordered Case Management: pending Dispo: med/tele admit inpt (2) Chest pain: (3) Peripheral arterial occlusive disease: (4) GERD (gastroesophageal reflux disease): (5) DM type 2 (diabetes mellitus, type 2): (6) CAD (coronary artery disease): (7) CKD (chronic kidney disease), stage III: (8) Hyperlipidemia: (9) Chronic obstructive pulmonary disease: Admission and Anticipated Discharge Date Admission Date: July 27, 2021 Results & Data Results & Data ([facility]) Vital Signs (Past 12 Hours) Vital Signs Temp Pulse Pulse Resp BP BP Pulse Ox 07/28/21 06:31 36.6 C 82 18 128/70 96 07/28/21 03:01 36.5 C 80 18 124/64 94 07/27/21 23:16 36.4 C L 84 18 121/66 94 07/27/21 23:09 85 07/27/21 22:41 73 18 123/70 97
[2021-07-28 08:22] LABS: Basophils # (auto) 0.04 K/uL (0-0.2); Basophils % (auto) 0.4 %; Eosinophils # (auto) 0.12 K/uL (0-0.5); Eosinophils % (auto) 1.3 %; Hematocrit (blood only) 38.1 % (42-52); Immature Granulocytes # (auto) 0.01 K/uL (0.00-0.02); Immature Granulocytes % (auto) 0.1 %; Lymphocytes # (auto) 3.22 K/uL (1.2-3.4); Lymphocytes % (auto) 36.1 %; Mean Corpuscular Hemoglobin 31.9 pg (25-34); Mean Corpuscular Hgb Conc 34.1 g/dL (32-36); Mean Corpuscular Volume 93.6 fL (80-100); Mean Platelet Volume 9.7 fL (7.4-10.4); Monocytes # (auto) 0.64 K/uL (0.11-0.59); Monocytes % (auto) 7.2 %; Neutrophils % (auto) 54.9 %; Platelet Count 279 K/uL (130-400); RDW Standard Deviation 51.3 fL (36.4-46.3); Red Blood Count 4.07 M/uL (4.7-6.1); White Blood Count 8.93 K/uL (4.8-10.8)
[2021-07-28 08:46] LABS: BUN Creatinine Ratio 22.6 (10-20); Creatinine Clr Calc Pharmacy 37.1 ml/min; Est GFR (African American) 40.4 ml/min; Est GFR (Non-African American) 34.9 ml/min; Potassium 3.8 mmol/L (3.5-5.1)
[2021-07-28] MEDS ORDERED: FLUTICASONE/VILANTEROL 100/25MCG 14 PUFFS/INHALER INH SCH (09:00)
[2021-07-28] MEDS ORDERED: CITALOPRAM 20 MG TAB PO SCH (09:00)
[2021-07-28] MEDS ORDERED: NON-FORMULARY MEDICATION (Cholecalciferol (Vitamin D3) 1,250 mcg (50,000 unit) capsule) PO SCH (09:00)
[2021-07-28] MEDS ORDERED: CLOPIDOGREL BISULFATE 75 MG TAB PO SCH (09:00)
[2021-07-28] MEDS ORDERED: ROSUVASTATIN CALCIUM 20 MG TAB PO SCH (09:00)
[2021-07-28] MEDS ORDERED: DOCUSATE SODIUM 100 MG CAP PO SCH (09:00)
[2021-07-28] MEDS ORDERED: buPROPion SR 150 MG TABCR PO SCH (09:00)
[2021-07-28] MEDS ORDERED: INSULIN GLARGINE SOLOSTAR 100 UNITS/ML 3 ML PEN SC SCH ×2 (09:00→21:00)
[2021-07-28] MEDS ORDERED: ENOXAPARIN INJ 30 MG/0.3 ML SYR SQ SCH (09:00)
[2021-07-28] MEDS ORDERED: ASPIRIN 325 MG ECTAB PO SCH (09:00)
--- NOTE | 2021-07-28 09:09 | CT Scan Report ---
CT chest diagnostic wo con CT DOSE: 410.59 mGy.cm HISTORY: rib fracture chest mass TECHNIQUE: Multiaxial CT images of the chest were performed without contrast. A dose lowering techni que was utilized adhering to the principles of ALARA. COMPARISON: Chest CT 04/13/2021. FINDINGS: There is an old nonunited fracture of the right coracoid process. Advanced degenerative fredy nges within the right sternoclavicular joint. Old left-sided rib fractures are again noted. This incl udes a nonunited left lateral seventh rib fracture. There is a spiculated 1.8 x 1.3 cm nodule within the left upper lobe on image 137. This abuts the adjacent pleura results in mild pleural thickening a t this location. This is similar in size compared to the prior chest CT. No pneumothorax. No pleural effusions. Chronic interstitial thickening and scattered peripheral groundglass densities remain unch anged. There is mild emphysema. Stable 1.2 cm subpleural nodule within the right lower lobe abutting the major fissure. There are few additional tiny peripheral nodules within the right mid to lower madalyn g zone. These are also unchanged. Calcified granuloma again noted within the right lower lobe. No new focal lung consolidations to suggest pneumonia. No evidence for pulmonary edema. Mild diffuse bronch ial wall thickening. The central airways remain patent. No mediastinal or hilar lymphadenopathy. Calc ified subcarinal and right hilar lymph nodes are again noted. The heart is normal in size. No pericar dial effusion. A few scattered punctate calcified granulomas within the liver and spleen. Adrenal gla nds are unremarkable. Renal calcifications are again noted. Normal esophagus. Mild calcified plaque w ithin the normal caliber thoracic aorta. IMPRESSION: 1. No significant change in the 1.8 cm spiculated nodule within the left upper lobe. 2. Emphysema and chronic interstitial thickening persists. 3. Additional stable findings as described above. ACT 112: Negative or not required by law. Electronically signed by: Ed Rodríguez M.D. 07/28/2021 9:08 AM
--- NOTE | 2021-07-28 12:47 | Discharge Summary ---
Date of Service July 28, 2021 Admission HPI Per Admitting Provider 75yo Male PMH Lung cancer s/p radiation DM2 CAD with stentx2, PAD with 2 groin stends and stents in legs, CKD3, HLD, COPD here for evaluation of weakness fatigue. States 4-5 days ago he woke up and started feeling off, felt jittery dizziness headache slight blurry vision SOB calves hurt panting felt hot and cold, sweating coughing spitting up white mucus, had green sinus discharge and decreased appetite. Had no new medication food injuries, last fall was several weeks ago.This would occur on and off throughout the days. Per the next day he continued to have symptoms but would also lay down exhausted. 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 Patient called PCP who directed him to the ED. Patient states he has left sided chest pain worse with palpation jumps off bed when press on anterior left chest by abdomen, states better laying on left side. States no recent falls, does have history of rib fractures. Last radiation t herapy in April. At this time describes mild headache dizziness blurred vision. He has not needed to use his home nitro. He states he also got a cut on his left leg from a marcella can, unsure when last tetanus shot was. He smokes 1.5 packs a day since he was 9 years old, no alcohol or illicit drugs. PSH tonsils back and right shoulder surgery, has some residual right shoulder pain. No history blood clots. In ED found to have troponin 64.2, lactate 2.3, given 2L NS and 1x cefepime. Admission Exam Per Admitting Provider Constitutional: well developed, well nourished, cooperative and comfortable Eyes: PERRL, conjunctivae normal, anicteric sclerae ENMT: external ear and nose normal, oropharynx normal Neck: trachea midline, no thyromegaly Respiratory: normal respiratory effort Auscultation: + crackles (fine crackles b/l bases); no wheezes Cardiovascular: RRR, no murmur, no edema Chest (Breasts): Chest: normal inspection of chest Additional Comments: Palpation of left chest pain disproportionate to exam Gastrointestinal (Abdomen): normal bowel sounds, soft, nontender, no hepatosplenomegaly Musculoskeletal: no cyanosis or clubbing, extremities motor strength 5/5 Skin: no rashes, warm and dry Neurologic: CN2-12 intact b/l Psychiatric: A+Ox3, euthymic affect Principal Diagnosis Hyperglycemia, JAVED, Dehydration Discharge Exam Constitutional WD/WN, vitals as above Eyes PERRL, conjunctivae normal, anicteric sclerae Neck trachea midline, no thyromegaly Respiratory normal respiratory effort, lungs clear to auscultation Cardiovascular Rate/Rhythm: regular rate and regular rhythm Gastrointestinal (Abdomen) normal bowel sounds, soft, nontender, no hepatosplenomegaly Discharge Data Allergies Allergy/AdvReac Type Severity Reaction Status Date / Time adhesive Allergy Mild Silk/plastic Verified 05/04/21 11:57 adhesive tape (redness, blistering) Consultations 07/27/21 19:28 ED Decision to Admit Stat Ordered Studies 07/27/21 21:30 CT chest diagnostic wo con Routine Hospital Course (1) Acute kidney injury: 75yo Male PMH Lung cancer s/p radiation DM2 CAD with stentx2, PAD with 2 groin stents and stents in legs, CKD3, HLD, COPD here for evaluation of weakness fatigue. Found to have elevated troponin and chest pain. Weakness/Fatigue -Last radiation therapy in April 2021 -Glucose reportedly 400+ on admission -Lactate elevated initially 2.3 -- downtrend to 1.7 after appropriate fluid hydration -Procal negative -Troponin elevated 64 on admission -- downtrend 49.8 -CT chest negative for signs concerning for pneumonia -Received 1x cefepime in ED -Suspect weakness secondary to poor PO intake in addition to Hyperglycemia on admission Acute kidney failure -Cr elevated 2.37 on admission, suspect secondary to poor PO intake per patient history -Downtrended to Cr 1.86 after 1.5L NSS in addition to 1L Normosol -Continue to hold Valsartan after discharge -Continue increased PO intake after discharge, discussed with patient -Repeat BMP at follow up PCP visit in 1 week recommended to ensure resolution of JAVED Hyperglycemia in the setting of DM2 -Improved with IV Insulin and IVF -Discussed increasing home SSI -Glucose 109 on discharge -Patient to resume home Lantus 26u QD and SSI -- appointment in 1 week to further titrate SSI with PCP CAD -Continued home ASA and Plavix COPD -Continued Albuterol, Breo ellipta -Smoking cessation discussed GERD -Continued Protonix HTN -Hold Valsartan while in JAVED -Continue to hold on discharge - resume per PCP Anxiety -Continued Bupropion and Citalopram (2) Lung cancer: (3) Chest pain: (4) Peripheral arterial occlusive disease: (5) GERD (gastroesophageal reflux disease): (6) DM type 2 (diabetes mellitus, type 2): (7) CAD (coronary artery disease): (8) CKD (chronic kidney disease), stage III: (9) Hyperlipidemia: (10) Chronic obstructive pulmonary disease: Total Time Total Time Spent Total Time Spent (In Minutes): see attending attestation Discharge Plan Discharge Items Patient Disposition: Home - Self-Care Reason For Visit: ELEVATED TROPONIN Discharge Diagnosis: Dehydration, Hyperglycemia Activity: Per Instructions section Non-emergency contact: Primary Care Provider Call non-emergency contact if: you have any medication questions and your symptoms worsen Follow-up/Referrals: Duran Singh PA-C [Primary Care Provider] - 08/17/21 12:40 pm Diet: Regular Addtl Attending Provider Instructions: Mr. Alvarez, It was our pleasure caring for you at [facility] from 07/27 - 07/28/21 for your symptoms of weakness and hyperglycemia. While inpatient, you were found to be severely hyperglycemic (high blood sugar levels) in addition to dehydrated as noted on your lab work. You were given IV fluids which improved your kidney function. You were also given Insulin to help reduce your blood sugar levels. You also had a CT scan of your lungs which did not show signs for concern for infection. In the morning you had noted that over all your symptoms had significantly improved and that you felt well enough to return home. As your kidneys are still improving, we ask that you follow up with your PCP in the next 1 week to have a repeat BMP (basic metabolic profile) to ensure that your kidney numbers return to baseline. We also ask that you continue to HOLD your Losartan until you are seen again in order to allow for your kidneys to return to baseline. Please continue to stay hydrated at home with continued oral intake of fluids. -Please follow up with your PCP in the next 1 week -Please have a repeat BMP taken at that 1 week follow up -Please continue to HOLD your Losartan until seen by your PCP and resumed at the office -If your symtpoms worsen or return, please return to the ED for reevaluation Pending Studies at Discharge: No Stand-Alone Forms: My [facility], Smoking Cessation Medications and DC Order Prescriptions: Continued atorvastatin 20 mg tablet 20 mg PO DAILY RF: 0 cholecalciferol (vitamin D3) 1,250 mcg (50,000 unit) capsule 50,000 unit PO DAILY RF: 0 docusate sodium [Colace] 100 mg capsule 100 mg PO DAILY RF: 0 (DME) CPAP Machine Misc See Rx Instructions .ROUTE .MEDSUPPLY Qty: 1 RF: 0 (DME) CPAP Supplies Misc See Rx Instructions .ROUTE .MEDSUPPLY Qty: 1 RF: 0 bupropion HCl (smoking deter) 150 mg tablet extended release 12 hr 150 mg PO BID Qty: 60 RF: 2 clopidogrel [Plavix] 75 mg tablet 75 mg PO QAM RF: 0 pantoprazole [Protonix] 40 mg tablet,delayed release (DR/EC) 40 mg PO BID RF: 0 nitroglycerin 0.4 mg tablet, sublingual 0.4 mg SL Q5M PRN (Reason: Chest Pain) RF: 0 magnesium oxide 200 mg magnesium tablet 200 mg PO DAILY RF: 0 citalopram [Celexa] 40 mg tablet 60 mg PO QAM RF: 0 valsartan [Diovan] 40 mg tablet 20 mg PO HS RF: 0 (DME) CPAP Machine Misc See Rx Instructions .ROUTE .MEDSUPPLY Qty: 1 RF: 0 albuterol sulfate [Ventolin HFA] 90 mcg/actuation HFA aerosol inhaler 2 puffs INH Q6H PRN (Reason: shortness of breath or wheezing) Qty: 8.5 RF: 5 rosuvastatin [Crestor] 20 mg tablet 20 mg PO QAM RF: 0 gabapentin [Neurontin] 600 mg tablet 600 mg PO HS RF: 0 fluticasone furoate-vilanterol [Breo Ellipta] 100-25 mcg/dose Blister With Device 1 inh INHALATION QAM RF: 0 Tresiba FlexTouch U-100 100 unit/mL (3 mL) insulin pen 26 unit SUBCUT QAM RF: 0 Novolin N Flexpen 100 unit/mL (3 mL) insulin pen 0 unit SUBCUT TIDM RF: 0 aspirin 325 mg Tablet 325 mg PO DAILY RF: 0 Ozempic 1 mg/dose (4 mg/3 mL) pen injector 1 mg SUBCUT JACKSON RF: 0 Discharge Orders: Discharge Order (Routine); Ordered 07/28/21 Ordered By: Samson Rios Admission Data Admit Date/Time: 07/27/21 21:42 Attending Provider: Caty Moralez Admit Provider: Karly Montes Primary Care Provider: Duran Singh Other Providers: Karly Montes Other Interventions: Discharge Summary Assessment (RN) Last Done: 07/28/21 14:21 Supervising Physician Co-Signing Physician Notes Resident Physician Supervision Note: I independently interviewed and examined the patient and verified the hawk history and physical, reviewed labs and image studies and agree with resident Dr. Rios findings and care plan. Resident Activity Tracking Resident Involvement: Resident Care Provided Care Provided: Adult Hospital Medicine
[2021-07-28] MEDS ORDERED: VALSARTAN 80 MG TAB PO SCH (21:00)
[2021-07-28] MEDS ORDERED: GABAPENTIN 600 MG TAB PO SCH (21:00)
--- NOTE | 2021-07-29 14:20 | Electrocardiogram Report ---
Test Reason : Blood Pressure : / mmHG Vent. Rate : 095 BPM Atrial Rate : 095 BPM P-R Int : 140 ms QRS Dur : 092 ms QT Int : 370 ms P-R-T Axes : 081 043 048 degrees QTc Int : 464 ms Normal sinus rhythm Cannot rule out Anterior infarct (cited on or before 27-JUL-2021) Abnormal ECG When compared with ECG of 19-MAY-2019 15:16, No significant change was found Confirmed by Arsen Calvo ([id number]) on 07/29/2021 2:20:11 PM Referred By: REFERRED SELF Confirmed By:Arsen Calvo
== END 2021-07-28 15:34 | disposition home or self-care (01) | DRG 181 ==
LOC: ED 17:03 → 2N 21:42 → INTOOBSV 21:42 → SUATTDRO 21:42 → 2N 22:41

== ENCOUNTER 2022-05-03 17:11 | Observation (INO) ==
[2022-05-03] MEDS ORDERED: ONDANSETRON INJ 2 MG/ML 2 ML VIAL IV STA ×2 (17:50→18:53)
[2022-05-03] MEDS ORDERED: SODIUM CHLORIDE 0.9% 500 ML IV STA (17:50)
[2022-05-03 18:11] LABS: Basophils # (auto) 0.04 K/uL (0-0.2); Basophils % (auto) 0.3 %; Eosinophils # (auto) 0.01 K/uL (0-0.50); Eosinophils % (auto) 0.1 %; Hematocrit (blood only) 47.7 % (42.0-52.0); Hemoglobin 16.6 g/dl (14.0-18.0); Immature Granulocytes # (auto) 0.04 K/uL (0.01-0.20); Immature Granulocytes % (auto) 0.3 %; Lymphocytes # (auto) 2.32 K/uL (1.2-3.4); Lymphocytes % (auto) 16.3 %; Mean Corpuscular Hemoglobin 31.7 pg (25.0-34.0); Mean Corpuscular Hgb Conc 34.8 g/dL (32.0-36.0); Mean Platelet Volume 9.6 fL (9.4-12.4); Monocytes # (auto) 0.73 K/uL (0.11-0.59); Monocytes % (auto) 5.1 %; Neutrophils # (auto) 11.07 K/uL (1.40-6.50); Neutrophils % (auto) 77.9 %; Platelet Count 294 K/uL (130-400); RDW Standard Deviation 43.3 fL (36.4-46.3); Red Blood Count 5.24 M/uL (4.70-6.10); White Blood Count 14.21 K/ul (4.8-10.8)
[2022-05-03] MEDS ORDERED: MoRPHine SULFATE 4 MG/ML 1 ML CARP\\VIAL IV STA (18:53)
[2022-05-03] MEDS ORDERED: LABETALOL HCL IV 5 MG/ML 20ML IV STA ×2 (18:53→21:05)
--- NOTE | 2022-05-03 19:02 | Emergency Department Note ---
Impression & Plan LUQ abdominal pain, Hypoxia, Leukocytosis, Pneumonia, Vomiting, Hypertension ED Provider Note NAME: RAFAL BONNER AGE: 76 SEX: M : 1945 ARRIVES VIA: Walk-In INFORMANT: [Patient][family] ED PROVIDER(S): [Asim Hernández MD] CHIEF COMPLAINT: Vomiting, left upper abdominal and back pain HISTORY OF PRESENT ILLNESS: The patient is a 76-year-old male who has had 18 hours of pain across the left upper abdomen and back/flank. The pain has been persistent. He also is vomiting. He has had some chills. No increased cough. No urinary complaints, no diarrhea. No trauma to the abdomen. Patient did have a kidney stone a very long time ago, he has not had any recent stone passage. PMHx/PSHx: See Below SOCIAL HISTORY: See Below. PHYSICAL EXAM: GENERAL: Patient is in mild distress from pain. HEENT: No acute trauma, normocephalic atraumatic, mucous membranes moist, no nasal congestion. NECK: No stridor, no adenopathy, no meningismus, trachea is midline. LUNGS: Few scattered wheezes heard, no respiratory distress, breath sounds are equal. HEART: Without murmurs gallops or rubs, regular rate and rhythm. ABDOMEN: Soft, mildly tender along the entire left side of the abdomen, no abdominal distention, no peritonitis. EXTREMITIES: No cyanosis or edema, full range of motion of all the joints without pain or difficulty, no signs for acute trauma. NEUROLOGIC: Oriented x 3, no acute motor or sensory deficits, no focal weakness. SKIN: No rash, no jaundice, no diaphoresis. DIFFERENTIAL DIAGNOSIS: Diverticulitis, pneumonia, pancreatitis, bowel obstruction, colitis, renal colic, pyelonephritis, among others. EMERGENCY DEPARTMENT COURSE/PROCEDURES: Prior/Outside records reviewed: None. ECG per my interpretation: Indication was abdominal pain. The ECG shows a normal sinus rhythm with some sinus arrhythmia. There is a poor baseline. The rate is 80. There is no obvious ST elevation, no PVCs. The QTc is 463. Continuous Cardiac Monitoring per my interpretation: An order was placed for continuous cardiac monitoring. The monitor shows a rate of 79 with normal sinus rhythm. MEDICAL DECISION MAKING: There is a leukocytosis at 14,000, this certainly could be consistent with infection. There was a normal hemoglobin and platelet count. Creatinine was slightly high at 1.56, the patient does have a history of renal insufficiency. Glucose somewhat elevated at 247, lactic acid level was not elevated making severe sepsis less likely. Magnesium was low at 1.6. No evidence for pancreatitis. ECG shows a normal sinus rhythm, no obvious ST elevation or acute ischemia. Cardiac enzyme testing x1 is slightly elevated, this elevation could be secondary to cardiac injury or potentially mismatch. BNP was elevated at 296 however, patient does not appear to be in heart failure clinically. Abdominal and pelvis CT suggested some constipation, no acute surgical process by CT imaging, no diverticulitis, no bowel perforation or bowel obstruction. Patient was given IV Zofran for nausea. He received IV saline, 500 cc. He was given IV morphine for pain, he received 2 doses of IV labetalol, 10 mg at a time for his high blood pressure. He was given IV magnesium, IV cefepime and a DuoNeb. Patient did become hypoxic here in the ED, he required O2 supplementation. I suspect the patient has pneumonia as the cause for his presentation. Given the hypoxia, given his vomiting and age, I do think a hospital stay would be warranted. I spoke with the patient and case management, the on-call hospitalist was consulted. DISPOSITION: The patient's presentation and findings warrant a hospital stay. Past Med/Surg History Medical History Acute and chronic respiratory failure with hypercapnia Arthritis CAD (coronary artery disease) angioplasty/KARRIE to pRCA (2014) Synergy stent (11/03/2020) after failed stress test Carotid arterial disease "no ICA stenosis.. severe left ECA stenosis" per cardiology office visit note 03/2019 > follows with Dr. Reyes in [place] Chronic obstructive pulmonary disease CKD (chronic kidney disease), stage III Diabetes IDDM DM type 2 (diabetes mellitus, type 2) GERD (gastroesophageal reflux disease) controlled Hyperkalemia Hyperlipidemia Hypertension Hypoxia Interstitial lung disease Neurogenic claudication due to lumbar spinal stenosis JAY on CPAP Peripheral arterial occlusive disease "total occlusion of the SFA and the left mid thigh area with reconstitution with collaterals and monophasic flow bilateral below knee area" per cardiology office visit note 03/2019 Pulmonary nodule 1 cm or greater in diameter (08/25/20) Sleep apnea awaiting CPAP Somnolence Spinal stenosis Stroke Immediately after spinal fusion 04/2019---went into kidney failure at the same time > only deficit is sometimes he "dribbles out of the left side of his mouth" Tobacco use Urinary problem urinary hesitancy Urinary retention Surgical History (Updated 02/23/21 @ 09:17 by Caridad Servin, RN) History of arthroscopy of right shoulder History of cardiac cath stent x1 (2014) Synergy stent x1 (11/03/2020) History of colonoscopy History of elbow surgery right History of hernia surgery X2 History of lumbar spinal fusion L5-S1 decompression/fusion (09/17/19): Grade view 2, Glidescope#3, ETT 8.0 at [facility] History of melanoma excision History of repair of left rotator cuff History of thumb surgery R/L History of tonsillectomy Status post lumbar surgery Family History (Updated 04/04/21 @ 08:46 by Maryanne Morfin RN) Mother Diabetes Heart disease Cancer Lung cancer Father Cancer Oral cancer Other No family history of adverse response to anesthesia Social History Smoking Status: Current every day smoker Tobacco Type: Cigarettes Cigarettes Per Day: 2; Second Hand Exposure: No; Hx Alcohol Use: Yes Alcohol type: beer and hard liquor Hx Substance Use: No Preferred Language: P[place]in[place] Communication Ability: Effective Visual Impairment: No Limitations Hearing Ability: Normal [employer] Required: No Beliefs That Will Affect Care: None Current Living Situation: Spouse current occupational status: retired Feels Safe at Home: Yes Childhood Exposure to Second-Hand Smoke: Yes Diet Comment: food choices with less carbs, uses sugar substitute Assistive Devices: None Allergies Allergies Allergy/AdvReac Type Severity Reaction Status Date / Time adhesive Allergy Mild Silk/plastic Verified 05/03/22 20:31 adhesive tape (redness, blistering) Home Meds Home Medications Medication Instructions Recorded Confirmed clopidogrel 75 mg tablet (Plavix) 75 mg PO QAM 12/23/18 05/03/22 nitroglycerin 0.4 mg sublingual 0.4 mg sublingual Q5M PRN Chest 12/23/18 05/03/22 tablet Pain pantoprazole 40 mg tablet,delayed 40 mg PO BID 12/23/18 05/03/22 release (Protonix) rosuvastatin 20 mg tablet (Crestor) 20 mg PO QAM 09/06/20 05/03/22 atorvastatin 20 mg tablet 20 mg PO DAILY 02/23/21 05/03/22 cholecalciferol (vitamin D3) 1,250 50,000 unit PO DAILY 02/23/21 05/03/22 mcg (50,000 unit) capsule docusate sodium 100 mg capsule 200 mg PO DAILY 02/23/21 05/03/22 (Colace) magnesium oxide 200 mg PO DAILY 02/23/21 05/03/22 citalopram 40 mg tablet (Celexa) 60 mg PO QAM 04/04/21 05/03/22 insulin NPH isoph U-100 human 100 0 unit subcut TIDM 04/04/21 05/03/22 unit/mL (3 mL) subcutaneous pen (Novolin N FlexPen) insulin degludec 100 unit/mL (3 26 unit subcut QAM 04/04/21 05/03/22 mL) subcutaneous pen (Tresiba FlexTouch U-100 insulin) aspirin 325 mg tablet 325 mg PO DAILY 07/27/21 05/03/22 gabapentin 600 mg tablet 800 mg PO HS 08/11/21 05/03/22 (Neurontin) semaglutide 1 mg/dose (4 mg/3 mL) 2 mg subcut WK 09/07/21 05/03/22 subcutaneous pen injector (Ozempic) Previous Rx's Medication Instructions Recorded CPAP Machine #1 ea 04/22/19 CPAP Supplies #1 ea 04/22/19 CPAP Machine #1 ea 08/10/19 albuterol sulfate 90 mcg/actuation 2 puffs inhalation Q6H PRN 08/10/19 aerosol inhaler (Ventolin HFA) shortness of breath or wheezing #8.5 grams bupropion HCl (smoking deter) 150 150 mg PO BID #60 tabs 09/07/21 mg tablet,12 hr sustained-release(smoking deterrent) fluticasone fur. 100 mcg-umeclid 1 inh inhalation DAILY #60 ea 09/07/21 62.5 mcg-vilant 25 mcg inhalat.powder (Trelegy Ellipta) Results & Data (ED) Vital Signs Vital Signs - 24 hr 05/03/22 17:24 05/03/22 18:26 05/03/22 18:17 Temperature 36.5 C Temperature Source Temporal Artery Scan Pulse Rate 82 78 Pulse Rate [Apical] Pulse Rate from SpO2 Sensor Respiratory Rate 20 Respiratory Effort / Characteristics Non-Labored Spontaneous Respiratory Depth Normal Respiratory Pattern Regular Blood Pressure 184/92 H 234/107 H Blood Pressure [Left Arm] Blood Pressure Mean 122 149 Blood Pressure Mean [Left Arm] Pulse Oximetry 99 Oxygen Delivery Method Room Air Oxygen Flow Rate Sepsis Recent Fever Within 48 Hours No Sepsis New/Unexplained Change in Mental Status N/A Sepsis Action Taken by Nursing No Action Required Oxygen Flow Rate - Titration Pulse Oximetry Post Tiitration 05/03/22 18:17 05/03/22 18:30 05/03/22 18:33 Temperature Temperature Source Pulse Rate 73 76 Pulse Rate [Apical] Pulse Rate from SpO2 Sensor 77 76 Respiratory Rate 26 H 28 H Respiratory Effort / Characteristics Respiratory Depth Respiratory Pattern Blood Pressure 227/89 H Blood Pressure [Left Arm] Blood Pressure Mean 135 Blood Pressure Mean [Left Arm] Pulse Oximetry 99 99 Oxygen Delivery Method Oxygen Flow Rate Sepsis Recent Fever Within 48 Hours Sepsis New/Unexplained Change in Mental Status Sepsis Action Taken by Nursing Oxygen Flow Rate - Titration Pulse Oximetry Post Tiitration 05/03/22 18:33 05/03/22 18:40 05/03/22 18:40 Temperature Temperature Source Pulse Rate 77 79 Pulse Rate [Apical] Pulse Rate from SpO2 Sensor 77 83 Respiratory Rate 22 24 Respiratory Effort / Characteristics Respiratory Depth Respiratory Pattern Blood Pressure 221/102 H Blood Pressure [Left Arm] Blood Pressure Mean 141 Blood Pressure Mean [Left Arm] Pulse Oximetry 99 98 Oxygen Delivery Method Oxygen Flow Rate Sepsis Recent Fever Within 48 Hours Sepsis New/Unexplained Change in Mental Status Sepsis Action Taken by Nursing Oxygen Flow Rate - Titration Pulse Oximetry Post Tiitration 05/03/22 19:16 05/03/22 19:20 05/03/22 19:40 Temperature Temperature Source Pulse Rate 88 80 Pulse Rate [Apical] 77 Pulse Rate from SpO2 Sensor 87 81 Respiratory Rate 15 16 12 Respiratory Effort / Characteristics Non-Labored Spontaneous Respiratory Depth Normal Respiratory Pattern Blood Pressure 192/94 H 211/89 H Blood Pressure [Left Arm] 213/92 H Blood Pressure Mean 126 129 Blood Pressure Mean [Left Arm] 132 Pulse Oximetry 98 94 Oxygen Delivery Method Oxygen Flow Rate Sepsis Recent Fever Within 48 Hours Sepsis New/Unexplained Change in Mental Status Sepsis Action Taken by Nursing Oxygen Flow Rate - Titration Pulse Oximetry Post Tiitration 05/03/22 19:50 05/03/22 20:00 05/03/22 20:45 Temperature Temperature Source Pulse Rate 85 79 Pulse Rate [Apical] Pulse Rate from SpO2 Sensor 81 78 Respiratory Rate 13 14 Respiratory Effort / Characteristics Respiratory Depth Respiratory Pattern Blood Pressure 206/90 H 203/89 H Blood Pressure [Left Arm] Blood Pressure Mean 128 127 Blood Pressure Mean [Left Arm] Pulse Oximetry 95 93 88 L Oxygen Delivery Method Room Air Oxygen Flow Rate 0 Sepsis Recent Fever Within 48 Hours Sepsis New/Unexplained Change in Mental Status Sepsis Action Taken by Nursing Oxygen Flow Rate - Titration 2 Pulse Oximetry Post Tiitration 97 05/03/22 20:10 05/03/22 20:20 05/03/22 20:30 Temperature Temperature Source Pulse Rate 76 82 80 Pulse Rate [Apical] Pulse Rate from SpO2 Sensor 77 81 80 Respiratory Rate 16 13 15 Respiratory Effort / Characteristics Respiratory Depth Respiratory Pattern Blood Pressure 201/99 H 185/91 H 203/101 H Blood Pressure [Left Arm] Blood Pressure Mean 133 122 135 Blood Pressure Mean [Left Arm] Pulse Oximetry 95 92 95 Oxygen Delivery Method Oxygen Flow Rate Sepsis Recent Fever Within 48 Hours Sepsis New/Unexplained Change in Mental Status Sepsis Action Taken by Nursing Oxygen Flow Rate - Titration Pulse Oximetry Post Tiitration 05/03/22 20:40 05/03/22 20:50 05/03/22 21:01 Temperature Temperature Source Pulse Rate 80 87 83 Pulse Rate [Apical] Pulse Rate from SpO2 Sensor 80 86 84 Respiratory Rate 12 22 24 Respiratory Effort / Characteristics Respiratory Depth Respiratory Pattern Blood Pressure 197/88 H 199/106 H 188/89 H Blood Pressure [Left Arm] Blood Pressure Mean 124 137 122 Blood Pressure Mean [Left Arm] Pulse Oximetry 97 97 92 Oxygen Delivery Method Oxygen Flow Rate Sepsis Recent Fever Within 48 Hours Sepsis New/Unexplained Change in Mental Status Sepsis Action Taken by Nursing Oxygen Flow Rate - Titration Pulse Oximetry Post Tiitration 05/03/22 21:10 05/03/22 21:20 05/03/22 21:30 Temperature Temperature Source Pulse Rate 87 80 80 Pulse Rate [Apical] Pulse Rate from SpO2 Sensor 86 81 80 Respiratory Rate 17 13 13 Respiratory Effort / Characteristics Respiratory Depth Respiratory Pattern Blood Pressure 204/97 H 193/84 H 169/87 H Blood Pressure [Left Arm] Blood Pressure Mean 132 120 114 Blood Pressure Mean [Left Arm] Pulse Oximetry 92 99 98 Oxygen Delivery Method Oxygen Flow Rate Sepsis Recent Fever Within 48 Hours Sepsis New/Unexplained Change in Mental Status Sepsis Action Taken by Nursing Oxygen Flow Rate - Titration Pulse Oximetry Post Tiitration 05/03/22 22:46 Temperature Temperature Source Pulse Rate 81 Pulse Rate [Apical] Pulse Rate from SpO2 Sensor Respiratory Rate Respiratory Effort / Characteristics Respiratory Depth Respiratory Pattern Blood Pressure Blood Pressure [Left Arm] Blood Pressure Mean Blood Pressure Mean [Left Arm] Pulse Oximetry Oxygen Delivery Method Oxygen Flow Rate Sepsis Recent Fever Within 48 Hours Sepsis New/Unexplained Change in Mental Status Sepsis Action Taken by Nursing Oxygen Flow Rate - Titration Pulse Oximetry Post Tiitration Home Medications Current Medication List: was personally reviewed by me Laboratory Data Attestation: I reviewed the patient's lab results. 05/03/22 17:50 05/03/22 18:43 Lab Results 05/03/22 05/03/22 05/03/22 Range/Units 17:50 17:50 18:43 WBC 14.21 H (4.8-10.8) K/ul RBC 5.24 (4.70-6.10) M/uL Hgb 16.6 (14.0-18.0) g/dl Hct 47.7 (42.0-52.0) % MCV 91.0 (80.0-100.0) fL MCH 31.7 (25.0-34.0) pg MCHC 34.8 (32.0-36.0) g/dL RDW Std Deviation 43.3 (36.4-46.3) fL RDW Coeff of Jono 13.0 (11.5-14.5) % Plt Count 294 (130-400) K/uL MPV 9.6 (9.4-12.4) fL Immature Gran % (Auto) 0.3 % Neut % (Auto) 77.9 % Lymph % (Auto) 16.3 % Twiggs % (Auto) 5.1 % Eos % (Auto) 0.1 % Baso % (Auto) 0.3 % Neut # (Auto) 11.07 H (1.40-6.50) K/uL Lymph # (Auto) 2.32 (1.2-3.4) K/uL [place]gs # (Auto) 0.73 H (0.11-0.59) K/uL Eos # (Auto) 0.01 (0-0.50) K/uL Baso # (Auto) 0.04 (0-0.2) K/uL Immature Gran # (Auto) 0.04 (0.01-0.20) K/uL Sodium Cancelled 136 Potassium Cancelled 4.3 Chloride Cancelled 100 Carbon Dioxide Cancelled 24 Anion Gap Cancelled 12 H BUN Cancelled 28 H Creatinine Cancelled 1.56 H Est Cr Clr Drug Dosing Cancelled 42.2 Est GFR ( Amer) Cancelled 49.6 Est GFR (Non-Af Amer) Cancelled 42.8 BUN/Creatinine Ratio Cancelled 17.9 Glucose Cancelled 247 H Lactate (0.4-2.0) mmol/L Calcium Cancelled 10.1 Magnesium 1.6 L (1.7-2.4) mg/dl Total Bilirubin Cancelled 0.6 AST Cancelled 13 ALT Cancelled 10 Alkaline Phosphatase Cancelled 82 Troponin I High Sens 20.2 H (0-20) pg/ml B-Natriuretic Peptide (0-100) pg/ml Total Protein Cancelled 7.1 Albumin Cancelled 3.9 Globulin Cancelled 3.2 Albumin/Globulin Ratio Cancelled 1.2 Lipase Cancelled 13 SARS-CoV-2 (PCR) (Negative) Influenza Type A (PCR) (Neg) Influenza Type B (PCR) (Neg) RSV (RT-PCR) (Neg) 05/03/22 05/03/22 05/03/22 Range/Units 19:22 20:00 20:00 WBC (4.8-10.8) K/ul RBC (4.70-6.10) M/uL Hgb (14.0-18.0) g/dl Hct (42.0-52.0) % MCV (80.0-100.0) fL MCH (25.0-34.0) pg MCHC (32.0-36.0) g/dL RDW Std Deviation (36.4-46.3) fL RDW Coeff of Jono (11.5-14.5) % Plt Count (130-400) K/uL MPV (9.4-12.4) fL Immature Gran % (Auto) % Neut % (Auto) % Lymph % (Auto) % Twiggs % (Auto) % Eos % (Auto) % Baso % (Auto) % Neut # (Auto) (1.40-6.50) K/uL Lymph # (Auto) (1.2-3.4) K/uL Twiggs # (Auto) (0.11-0.59) K/uL Eos # (Auto) (0-0.50) K/uL Baso # (Auto) (0-0.2) K/uL Immature Gran # (Auto) (0.01-0.20) K/uL Sodium Potassium Chloride Carbon Dioxide Anion Gap BUN Creatinine Est Cr Clr Drug Dosing Est GFR ( Amer) Est GFR (Non-Af Amer) BUN/Creatinine Ratio Glucose Lactate 1.8 (0.4-2.0) mmol/L Calcium Magnesium (1.7-2.4) mg/dl Total Bilirubin AST ALT Alkaline Phosphatase Troponin I High Sens (0-20) pg/ml B-Natriuretic Peptide 296 H (0-100) pg/ml Total Protein Albumin Globulin Albumin/Globulin Ratio Lipase SARS-CoV-2 (PCR) NEGATIVE (Negative) Influenza Type A (PCR) Negative (Neg) Influenza Type B (PCR) Negative (Neg) RSV (RT-PCR) Negative (Neg) Administered Medications Discontinued Medications Albuterol (Albut/Ipratrop 3mg/0.5mg Neb 3 Ml Vial) 3 ml NEB NOW STA; Protocol Stop: 05/03/22 21:05 Last Admin: 05/03/22 21:10 Dose: 3 ml Documented By: CANDIDO Sodium Chloride (Nss) 500 mls @ 999 mls/hr IV .Q31M STA Stop: 05/03/22 18:20 Last Infusion: 05/03/22 20:12 Dose: 0 mls/hr Documented By: Admin: 05/03/22 17:56 Dose: 999 mls/hr Documented By: KELLEE Cefepime HCl (Maxipime) 2,000 mg in 20 mls @ 5 mls/min IV NOW STA; Protocol Stop: 05/03/22 18:58 Last Admin: 05/03/22 20:08 Dose: 5 mls/min Documented By: CANDIDO Magnesium Sulfate/Dextrose (Magnesium Sulfate / D5w) 1 gm in 100 mls @ 100 mls/hr IV NOW STA Stop: 05/03/22 22:04 Last Infusion: 05/03/22 22:02 Dose: 0 mls/hr Documented By: Admin: 05/03/22 21:10 Dose: 100 mls/hr Documented By: CANDIDO Ioversol (Optiray 350 100ml) 83 ml IV ONCE ONE Stop: 05/03/22 21:54 Last Admin: 05/03/22 21:53 Dose: 83 ml Documented By: MICHELLE Labetalol HCl (Labetalol Hcl Iv 5 Mg/Ml 20ml) 10 mg IV NOW STA Stop: 05/03/22 18:54 Last Admin: 05/03/22 19:12 Dose: 10 mg Documented By: CANDIDO Co-signed By: IVANA Labetalol HCl (Labetalol Hcl Iv 5 Mg/Ml 20ml) 10 mg IV NOW STA Stop: 05/03/22 21:06 Last Admin: 05/03/22 21:10 Dose: 10 mg Documented By: CANDIDO Co-signed By: LUPE Morphine Sulfate (Morphine Sulfate 4 Mg/Ml 1 Ml Carp\\Vial) 4 mg IV NOW STA Stop: 05/03/22 18:54 Last Admin: 05/03/22 19:11 Dose: 4 mg Documented By: CANDIDO Ondansetron HCl (Ondansetron Inj 2 Mg/Ml 2 Ml Vial) 4 mg IV NOW STA Stop: 05/03/22 17:51 Last Admin: 05/03/22 17:56 Dose: 4 mg Documented By: KELLEE Ondansetron HCl (Ondansetron Inj 2 Mg/Ml 2 Ml Vial) 4 mg IV NOW STA Stop: 05/03/22 18:54 Last Admin: 05/03/22 19:11 Dose: 4 mg Documented By: CANDIDO Imaging Data Radiologist's Impression: Abdomen/Pelvis CT 05/03/22 18:30 Exam(s): CT ABDOMEN + PELVIS With Contrast EXAM: CT Abdomen and Pelvis With Intravenous Contrast CLINICAL HISTORY: Reason for exam: pain, vomiting. TECHNIQUE: Axial computed tomography images of the abdomen and pelvis with intravenous contrast. CTDI is 10.91 mGy and DLP is 530.31 mGy-cm. Automated exposure control was utilized for the study. A dose lowering technique was utilized adhering to the principles of ALARA. CONTRAST: 83 mL of Optiray 350. COMPARISON: April 13, 2021 FINDINGS: Lung bases: Unremarkable. No mass. No consolidation. ABDOMEN: Liver: Unremarkable. No mass. Gallbladder and bile ducts: Unremarkable. No calcified stones. No ductal dilation. Pancreas: Unremarkable. No mass. No ductal dilation. Spleen: Unremarkable. No splenomegaly. Adrenals: Unremarkable. No mass. Kidneys and ureters: Unremarkable. No solid mass. No hydronephrosis. Stomach and bowel: See below. PELVIS: Appendix: The appendix is normal. There is diverticulosis of the sigmoid colon without signs of acute diverticulitis. There is a large amount of stool throughout the right and transverse colon measuring up to 7 cm in diameter suggesting mild constipation. No acute inflammatory changes are seen involving the bowel. Bladder: Unremarkable. No mass. Reproductive: Unremarkable as visualized. ABDOMEN and PELVIS: Intraperitoneal space: Unremarkable. No free air. No significant fluid collection. Bones/joints: Artifact from instrumentation and fusion at L5-S1. There are moderate degenerative changes throughout the spine. No acute fracture or subluxation is seen. Soft tissues: Unremarkable. Vasculature: The abdominal aorta is heavily calcified but nondilated. There are bilateral external iliac artery stents which appear to be patent. Lymph nodes: Unremarkable. No enlarged lymph nodes. IMPRESSION: The appendix is normal. There is diverticulosis of the sigmoid colon without signs of acute diverticulitis. There is a large amount of stool throughout the right and transverse colon measuring up to 7 cm in diameter suggesting mild constipation. No acute inflammatory changes are seen involving the bowel. Electronically signed by: Isauro Montes MD 05/03/22 22:33 PM Chest X-Ray 05/03/22 18:30 XR chest 1V portable CLINICAL HISTORY: abd pain TECHNIQUE: Single frontal radiograph of the chest was obtained. Comparison: Comparison is made to chest radiograph 07/27/2021 FINDINGS: No lines and tubes are seen. Cardiomegaly is noted. Prominence and cephalization of the vasculature is seen. Faint bilateral airspace opacities are seen. No evidence of pleural effusion or pneumothorax. IMPRESSION: 1. Cardiomegaly and mild pulmonary edema. 2. Faint bilateral lower lung predominant airspace opacities. These may represent atelectasis, pneumonia, and/or aspiration. ACT 112: Negative or not required by law. Electronically signed by: Yuriy Romero M.D. 05/03/2022 7:01 PM Discharge Plan Visit Data Chief Complaint: Vomiting Stated Complaint: PAIN ON L SIDE AND RIB, VOMIT, ED Provider: Asim Hernández Discharge Problem: LUQ abdominal pain, Hypoxia, Leukocytosis, Pneumonia, Vomiting, Hypertension Patient Disposition: Admitted As Inpatient Condition: Fair Forms Stand Alone Forms: My [facility] Prescriptions Prescriptions: No Action atorvastatin 20 mg tablet 20 mg PO DAILY cholecalciferol (vitamin D3) 1,250 mcg (50,000 unit) capsule 50,000 unit PO DAILY docusate sodium [Colace] 100 mg capsule 200 mg PO DAILY (DME) CPAP Machine Mis See Rx Instructions .ROUTE .MEDSUPPLY Qty: 1 0RF Rx Instructions: Auto CPAP 5-17 cmH2O; heated humidification; capable of collecting AHI and compliance data with modem; duration use 99 years (DME) CPAP Supplies Misc See Rx Instructions .ROUTE .MEDSUPPLY Qty: 1 0RF Rx Instructions: tubing, filters, all appropriate supplies; mask fit clopidogrel [Plavix] 75 mg tablet 75 mg PO QAM pantoprazole [Protonix] 40 mg tablet,delayed release (DR/EC) 40 mg PO BID nitroglycerin 0.4 mg tablet, sublingual 0.4 mg SL Q5M PRN (Reason: Chest Pain) magnesium oxide 200 mg magnesium tablet 200 mg PO DAILY citalopram [Celexa] 40 mg tablet 60 mg PO QAM Patient Comments: 1.5 TAB, ( 40 MG) Trelegy Ellipta 100-62.5-25 mcg blister with device 1 inh inhalation DAILY Qty: 60 2RF bupropion HCl (smoking deter) 150 mg tablet extended release 12 hr 150 mg PO BID Qty: 60 2RF (DME) CPAP Machine [facility] [place] Rx Instructions .ROUTE .MEDSUPPLY Qty: 1 0RF Rx Instructions: INCREASE CPPAP TO 12 CMS TO OPAL HOME albuterol sulfate [Ventolin HFA] 90 mcg/actuation HFA aerosol inhaler 2 puffs INH Q6H PRN (Reason: shortness of breath or wheezing) Qty: 8.5 5RF rosuvastatin [Crestor] 20 mg tablet 20 mg PO QAM gabapentin [Neurontin] 600 mg tablet 800 mg PO HS Tresiba FlexTouch U-100 100 unit/mL (3 mL) insulin pen 26 unit SUBCUT QAM Novolin N FlexPen 100 unit/mL (3 mL) insulin pen 0 unit SUBCUT TIDM Patient Comments: With meals and at bedtime Rx Instructions: >120-10 units 121-150-15 units 151-200-20 units aspirin 325 mg Tablet 325 mg PO DAILY Ozempic 1 mg/dose (4 mg/3 mL) pen injector 2 mg SUBCUT WK Rx Instructions: SUNDAYS--PER SPOUSE "TOOK LATE THIS WEEK". Referrals Referrals: Duran Singh PA-C [Primary Care Provider] -
[2022-05-03] MEDS: CEFEPIME 2,000 MG/20 ML VIAL IV STA ×2 (19:12→20:08)
[2022-05-03 20:03] LABS: Troponin I High Sensitivity 20.2 pg/ml (0-20)
[2022-05-03 20:08] LABS: Influenza A virus by PCR Negative (Neg); Influenza B virus by PCR Negative (Neg); RSV by PCR Negative (Neg); SARS CoV2 RNA(COVID-19) Ceph NEGATIVE (Negative)
[2022-05-03 21:04] LABS: Albumin Level 3.9 gm/dl (3.4-5.0); Bilirubin,Total 0.6 mg/dl (0.2-1.0); Calcium 10.1 mg/dl (8.5-10.1); Magnesium 1.6 mg/dl (1.7-2.4); Potassium 4.3 mmol/L (3.5-5.1)
[2022-05-03] MEDS ORDERED: ALBUT/IPRATROP 3MG/0.5MG NEB 3 ML VIAL NEB STA (21:04)
[2022-05-03] MEDS ORDERED: MAGNESIUM SULFATE / D5W 1 GM/100 ML BAG IV STA (21:05)
[2022-05-03 21:10] LABS: Albumin Globulin Ratio 1.2 (0.9-2); BUN Creatinine Ratio 17.9 (10-20); Creatinine Clr Calc Pharmacy 42.2 ml/min; Est GFR (African American) 49.6 ml/min; Est GFR (Non-African American) 42.8 ml/min; Globulin 3.2 gm/dl (2.5-4.0); Total Protein 7.1 gm/dl (6.0-8.3)
[2022-05-03] MEDS ORDERED: OPTIRAY 350 100ml IV ONE (21:53)
--- NOTE | 2022-05-03 22:34 | CT Scan Report ---
Exam(s): CT ABDOMEN + PELVIS With Contrast EXAM: CT Abdomen and Pelvis With Intravenous Contrast CLINICAL HISTORY: Reason for exam: pain, vomiting. TECHNIQUE: Axial computed tomography images of the abdomen and pelvis with intravenous contrast. CTDI is 10.91 mGy and DLP is 530.31 mGy-cm. Automated exposure control was utilized for the study. A dose lowering technique was utilized adhering to the principles of ALARA. CONTRAST: 83 mL of Optiray 350. COMPARISON: April 13, 2021 FINDINGS: Lung bases: Unremarkable. No mass. No consolidation. ABDOMEN: Liver: Unremarkable. No mass. Gallbladder and bile ducts: Unremarkable. No calcified stones. No ductal dilation. Pancreas: Unremarkable. No mass. No ductal dilation. Spleen: Unremarkable. No splenomegaly. Adrenals: Unremarkable. No mass. Kidneys and ureters: Unremarkable. No solid mass. No hydronephrosis. Stomach and bowel: See below. PELVIS: Appendix: The appendix is normal. There is diverticulosis of the sigmoid colon without signs of acute diverticulitis. There is a large amount of stool throughout the right and transverse colon measuring up to 7 cm in diameter suggesting mild constipation. No acute inflammatory changes are seen involving the bowel. Bladder: Unremarkable. No mass. Reproductive: Unremarkable as visualized. ABDOMEN and PELVIS: Intraperitoneal space: Unremarkable. No free air. No significant fluid collection. Bones/joints: Artifact from instrumentation and fusion at L5-S1. There are moderate degenerative changes throughout the spine. No acute fracture or subluxation is seen. Soft tissues: Unremarkable. Vasculature: The abdominal aorta is heavily calcified but nondilated. There are bilateral external iliac artery stents which appear to be patent. Lymph nodes: Unremarkable. No enlarged lymph nodes. IMPRESSION: The appendix is normal. There is diverticulosis of the sigmoid colon without signs of acute diverticulitis. There is a large amount of stool throughout the right and transverse colon measuring up to 7 cm in diameter suggesting mild constipation. No acute inflammatory changes are seen involving the bowel. Electronically signed by: Isauro Montes MD 05/03/22 22:33 PM
--- NOTE | 2022-05-03 23:59 | History & Physical Report ---
Patient seen and examined. I agree with the history and physical and the plan as outlined in the resident's note. Date of Service May 03, 2022 Assessment & Plan (1) Pneumonia: Plan: -Admission labs with leukocytosis, CXR with b/l lower lobe airspace opacities possibly suggesting pneumonia. Will treat as CAP -Lactate negative. Pt did not meet SIRS criteria on admission -Procalcitonin, MRSA nares, BCx pending -Continue cefepime, azithromycin added for atypical coverage -Currently saturating well on RA, afebrile, hemodynamically stable -Trend CBC (2) Hypervolemia: Plan: -CXR with evidence of b/l pulmonary edema and cardiomegaly, along with elevated BNP 296 -04/2019 echocardiogram- 60-65 EF, grade 1 diastolic dysfunction, mild LVH -Pt is without overt fluid overload on exam apart from mild bibasilar crackles. No formal history of CHF in chart but may potentially have exacerbation 2/2 pneumonia. Repeat echocardiogram ordered -Lasix 20 mg IV daily ordered -Monitor I's and O's -Supplement KCl while diuresis ongoing -Trend BMP (3) Hypertension: Plan: -Pt with profound BP elevation 200s/100s+, improved with labetalol -Suspect elevation due to pain and does not represent HTN crisis -Pt seemingly not on any antihypertensives per home medications -Consider initiation as outpatient -Continue to monitor (4) Elevated troponin: Plan: -Troponin 20 on admission, EKG without acute ST change -Likely mild demand ischemia from acute illness + potential CHF exacerbation -Trend to peak (5) Chronic obstructive pulmonary disease: Plan: -Known history of COPD and pt is longstanding smoker- quit summer 2021 -Pt does have wheezing on exam and may potentially have mild COPD exacerbation from pneumonia -Currently stable respiratory status with no dyspnea and mild wheezing -Continue azithromycin -Prednisone 40 mg daily initiated -Continue home Trelegy or formulary equivalent -Albuterol PRN, duoneb PRN (6) Hypomagnesemia: Plan: -Mg 1.6 on admission -Repleted in ER -Trend Mg (7) Hyperlipidemia: Plan: -Pt apparently on atorvastatin 20 mg and rosuvastatin 20 mg per home medication list -Last PCP note 01/16 reports pt is on rosuvastatin 40 mg daily -Continue rosuvastatin 20 mg at present, this should be clarified prior to discharge by PCP (8) GERD (gastroesophageal reflux disease): Plan: -Continue home pantoprazole (9) DM type 2 (diabetes mellitus, type 2): Plan: -Last A1C 8.3% in 04/2019 -Repeat A1C ordered -Lantus, SSI ordered- adjust per glucose trend (10) CAD (coronary artery disease): Plan: -Continue aspirin, Plavix, statin -Pt not on any beta sharona per home list (11) CKD (chronic kidney disease), stage III: Plan: -Cr 1.56 on admission, unclear baseline -Suspect possible JAVED given volume losses from emesis, though as above- pt's workup does suggest volume overload. 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 -Continue Wellbutrin (13) JAY on CPAP: Plan: -CPAP Hs (14) Neurogenic claudication due to lumbar spinal stenosis: Plan: -Continue gabapentin (15) Constipation: Plan: -CTAP with evidence of constipation -Bowel regimen ordered (16) Depression: Plan: -Continue Celexa Plan FENGI: DM2, heart-healthy, fluid restriction 1500 mls Code status: Full DVT ppx: Lovenox Isolation: None Disposition: PCU History of Present Illness Chief Complaint: Chest and torso pain, vomiting Primary Care Provider: Duran Singh 76 yo M with PMH lung cancer s/p SBRT, PAD, HTN, HLD, IDDM2, CAD s/p stenting, COPD, CKD3, GERD, depression presenting with rib pain. Pt reports yesterday afternoon he experienced sudden onset chest/abdominal pain- mostly over L ribs with some radiation downward to abdomen. This was associated with dry cough, chills and posttussive NBNB emesis. Coughing exacerbates the pain. Denies substernal chest pain or fever. Symptoms persisted and increased in severity which limited his sleep last night. He continued to worsen until he came to ER this evening. Pt arrived to ER with BP over 200s/100s, normal HR, O2 normal on RA. ED labs with WBC 14, Cr 1.56 (unclear baseline), glucose 247, Mg 1.6, troponin 20, BNP 296, CTAP with evidence of stool burden in transverse and ascending colon, CXR with cardiomegaly, pulmonary edema and faint b/l airspace opacities. ER interventions include 500 cc NS bolus, Zofran, morphine, labetalol 10 mg IV x2, Mg repletion, albuterol nebulizer and cefepime. On my evaluation, pt reports feeling better than before though the L rib pain is still present. He reported fatigue and wanted to sleep. Denied dyspnea, fever, chest pain. Allergies Allergy/AdvReac Type Severity Reaction Status Date / Time adhesive Allergy Mild Silk/plastic Verified 05/03/22 20:31 adhesive tape (redness, blistering) Home Medications Medication Instructions Recorded Confirmed Type clopidogrel 75 mg tablet (Plavix) 75 mg PO QAM 12/23/18 05/03/22 History nitroglycerin 0.4 mg sublingual 0.4 mg sublingual Q5M PRN Chest 12/23/18 05/03/22 History tablet Pain pantoprazole 40 mg tablet,delayed 40 mg PO BID 12/23/18 05/03/22 History release (Protonix) CPAP Machine #1 ea 04/22/19 01/05/22 Rx CPAP Supplies #1 04/22/19 01/05/22 Rx CPAP Machine #1 ea 08/10/19 01/05/22 Rx albuterol sulfate 90 mcg/actuation 2 puffs inhalation Q6H PRN 08/10/19 05/03/22 Rx aerosol inhaler (Ventolin HFA) shortness of breath or wheezing #8.5 grams rosuvastatin 20 mg tablet (Crestor) 20 mg PO QAM 09/06/20 05/03/22 History atorvastatin 20 mg tablet 20 mg PO DAILY 02/23/21 05/03/22 History cholecalciferol (vitamin D3) 1,250 50,000 unit PO DAILY 02/23/21 05/03/22 History mcg (50,000 unit) capsule docusate sodium 100 mg capsule 200 mg PO DAILY 02/23/21 05/03/22 History (Colace) magnesium oxide 200 mg PO DAILY 02/23/21 05/03/22 History citalopram 40 mg tablet (Celexa) 60 mg PO QAM 04/04/21 05/03/22 History insulin NPH isoph U-100 human 100 0 unit subcut TIDM 04/04/21 05/03/22 History unit/mL (3 mL) subcutaneous pen (Novolin N FlexPen) insulin degludec 100 unit/mL (3 26 unit subcut QAM 04/04/21 05/03/22 History mL) subcutaneous pen (Tresiba FlexTouch U-100 insulin) aspirin 325 mg tablet 325 mg PO DAILY 07/27/21 05/03/22 History gabapentin 600 mg tablet 800 mg PO HS 08/11/21 05/03/22 History (Neurontin) bupropion HCl (smoking deter) 150 150 mg PO BID #60 tabs 09/07/21 05/03/22 Rx mg tablet,12 hr sustained-release(smoking deterrent) fluticasone fur. 100 mcg-umeclid 1 inh inhalation DAILY #60 ea 09/07/21 05/03/22 Rx 62.5 mcg-vilant 25 mcg inhalat.powder (Trelegy Ellipta) semaglutide 1 mg/dose (4 mg/3 mL) 2 mg subcut WK 09/07/21 05/03/22 History subcutaneous pen injector (Ozempic) Past Med/Surg History Medical History (Updated 05/04/22 @ 01:01 by Marlee Carrion MD) Acute and chronic respiratory failure with hypercapnia Arthritis CAD (coronary artery disease) angioplasty/KARRIE to pRCA (2014) Synergy stent (11/03/2020) after failed stress test Carotid arterial disease "no ICA stenosis.. severe left ECA stenosis" per cardiology office visit note 03/2019 > follows with Dr. Reyes in [place] Chronic obstructive pulmonary disease CKD (chronic kidney disease), stage III Diabetes IDDM DM type 2 (diabetes mellitus, type 2) GERD (gastroesophageal reflux disease) controlled Hyperkalemia Hyperlipidemia Hypertension Hypoxia Interstitial lung disease Neurogenic claudication due to lumbar spinal stenosis JAY on CPAP Peripheral arterial occlusive disease "total occlusion of the SFA and the left mid thigh area with reconstitution with collaterals and monophasic flow bilateral below knee area" per cardiology office visit note 03/2019 Pulmonary nodule 1 cm or greater in diameter (08/25/20) Sleep apnea awaiting CPAP Somnolence Spinal stenosis Stroke Immediately after spinal fusion 04/2019---went into kidney failure at the same time > only deficit is sometimes he "dribbles out of the left side of his mouth" Tobacco use Urinary problem urinary hesitancy Urinary retention Surgical History (Updated 02/23/21 @ 09:17 by Caridad Servin RN) History of arthroscopy of right shoulder History of cardiac cath stent x1 (2014) Synergy stent x1 (11/03/2020) History of colonoscopy History of elbow surgery right History of hernia surgery X2 History of lumbar spinal fusion L5-S1 decompression/fusion (09/17/19): Grade view 2, Glidescope#3, ETT 8.0 at [facility] History of melanoma excision History of repair of left rotator cuff History of thumb surgery R/L History of tonsillectomy Status post lumbar surgery Family History (Updated 04/04/21 @ 08:46 by Maryanne Morfin RN) Mother Diabetes Heart disease Cancer Lung cancer Father Cancer Oral cancer Other No family history of adverse response to anesthesia Social History Smoking Status: Current every day smoker Tobacco Type: Cigarettes Cigarettes Per Day: 2; Second Hand Exposure: No; Hx Alcohol Use: Yes Alcohol type: beer and hard liquor Hx Substance Use: No Preferred Language: [place] Communication Ability: Effective Visual Impairment: No Limitations Hearing Ability: Normal Telecommunication Lines Repairer Required: No Beliefs That Will Affect Care: None Current Living Situation: Spouse current occupational status: retired Feels Safe at Home: Yes Childhood Exposure to Second-Hand Smoke: Yes Diet Comment: food choices with less carbs, uses sugar substitute Assistive Devices: None Review of Systems Review of Systems: Per HPI Physical Exam Physical Exam: General: tired, elderly male, no acute distress, wearing nasal cannula but no oxygen flowing HEENT: moist mucous membranes, PERRLA, EOMI, no JVD b/l CV: RRR, normal S1 and S2, no murmurs Resp: Mild expiratory wheezing across upper lung casey, faint bibasilar crackles L > R, no increased work of breathing, good inspiratory effort Abd: soft, nondistended, nontender, no guarding or rebound MSK: tender to palpation along lateral L torso over rib distribution Neuro: AOx3, no focal motor or sensory deficit Skin: No rashes, warm and dry Ext: no peripheral edema, pedal pulses intact b/l, Results & Data Results & [facility] ([facility]) Vital Signs (Past 12 Hours) Vital Signs Temp Pulse Pulse Resp BP BP Pulse Ox 05/03/22 22:46 81 05/03/22 21:30 80 13 169/87 H 98 03/09/23 21:20 80 13 193/84 H 99 05/03/22 21:10 87 17 204/97 H 92 05/03/22 21:01 83 24 188/89 H 92 05/03/22 20:50 87 22 199/106 H 97 05/03/22 20:40 80 12 197/88 H 97 05/03/22 20:30 80 15 203/101 H 95 05/03/22 20:20 82 13 185/91 H 92 05/03/22 20:10 76 16 201/99 H 95 05/03/22 20:45 88 L 05/03/22 20:00 79 14 203/89 H 93 05/03/22 19:50 85 13 206/90 H 95 05/03/22 19:40 80 12 211/89 H 94 05/03/22 19:20 88 16 192/94 H 98 05/03/22 19:16 77 15 213/92 H 05/03/22 18:40 221/102 H 05/03/22 18:40 79 24 98 05/03/22 18:33 77 22 99 05/03/22 18:33 227/89 H 05/03/22 18:30 76 28 H 99 05/03/22 18:17 73 26 H 99 05/03/22 18:17 234/107 H 05/03/22 18:26 78 05/03/22 17:24 36.5 C 82 20 184/92 H 99 O2 Del Method O2 Flow Rate 05/03/22 22:46 05/03/22 21:30 05/03/22 21:20 05/03/22 21:10 05/03/22 21:01 05/03/22 20:50 05/03/22 20:40 05/03/22 20:30 05/03/22 20:20 05/03/22 20:10 05/03/22 20:45 Room Air 0 05/03/22 20:00 05/03/22 19:50 05/03/22 19:40 05/03/22 19:20 05/03/22 19:16 05/03/22 18:40 05/03/22 18:40 05/03/22 18:33 05/03/22 18:33 05/03/22 18:30 05/03/22 18:17 05/03/22 18:17 05/03/22 18:26 05/03/22 17:24 Room Air Resident Activity Tracking Resident Involvement: Resident Care Provided Care Provided: Adult Hospital Medicine (1) Pneumonia Laterality: bilateral Lung location: lower lobe of lung Pneumonia type: due to unspecified organism Qualified Code(s): J18.9 - Pneumonia, unspecified organism (3) Hypertension Hypertension type: unspecified Qualified Code(s): I10 - Essential (primary) hypertension
[2022-05-04] MEDS ORDERED: GLUCOSE 10 TAB/TUBE PO PRN (01:29)
[2022-05-04] MEDS ORDERED: GLUCOSE 40% GEL 15 GM TUBE PO PRN (01:29)
[2022-05-04] MEDS ORDERED: DEXTROSE 50% 50 ML SYRINGE IV PRN (01:29)
[2022-05-04] MEDS ORDERED: ALBUTEROL HFA 8 GM INHALER INH PRN (01:29)
[2022-05-04] MEDS ORDERED: ONDANSETRON INJ 2 MG/ML 2 ML VIAL IV PRN (01:29)
[2022-05-04] MEDS ORDERED: CARBOHYDRATES FOR HYPOGLYCEMIA PO PRN (01:29)
[2022-05-04] MEDS ORDERED: ACETAMINOPHEN 325 MG TAB PO PRN (01:29)
[2022-05-04] MEDS ORDERED: GLUCAGON FOR INJ 1 MG VIAL SQ PRN (01:29)
[2022-05-04] MEDS ORDERED: NITROGLYCERIN SL 0.4 MG/TAB TAB SL PRN (01:29)
[2022-05-04] MEDS ORDERED: ALBUT/IPRATROP 3MG/0.5MG NEB 3 ML VIAL NEB PRN (01:29)
[2022-05-04] MEDS: INSULIN ASPART PER UNIT SC SCH ×5 (01:56→21:17)
[2022-05-04] MEDS ORDERED: AZITHROMYCIN 500 MG in DEXTROSE 5% 250 ML IV ONE (02:00)
[2022-05-04 02:45] LABS: Basophils # (auto) 0.04 K/uL (0-0.2); Basophils % (auto) 0.4 %; Hematocrit (blood only) 42.8 % (42.0-52.0); Hemoglobin 14.6 g/dl (14.0-18.0); Immature Granulocytes # (auto) 0.03 K/uL (0.01-0.20); Immature Granulocytes % (auto) 0.3 %; Lymphocytes # (auto) 2.08 K/uL (1.2-3.4); Lymphocytes % (auto) 18.4 %; Mean Corpuscular Hemoglobin 31.6 pg (25.0-34.0); Mean Corpuscular Hgb Conc 34.1 g/dL (32.0-36.0); Mean Corpuscular Volume 92.6 fL (80.0-100.0); Mean Platelet Volume 9.6 fL (9.4-12.4); Monocytes # (auto) 0.64 K/uL (0.11-0.59); Monocytes % (auto) 5.6 %; Neutrophils # (auto) 8.54 K/uL (1.40-6.50); Neutrophils % (auto) 75.3 %; Platelet Count 291 K/uL (130-400); RDW Coefficient of Variation 13.2 % (11.5-14.5); Red Blood Count 4.62 M/uL (4.70-6.10); White Blood Count 11.33 K/ul (4.8-10.8)
[2022-05-04 02:51] LABS: Albumin Globulin Ratio 1.3 (0.9-2); Albumin Level 3.8 gm/dl (3.4-5.0); BUN Creatinine Ratio 17.6 (10-20); Bilirubin,Total 0.5 mg/dl (0.2-1.0); Calcium 9.8 mg/dl (8.5-10.1); Creatinine Clr Calc Pharmacy 37.4 ml/min; Est GFR (African American) 42.9 ml/min; Globulin 2.9 gm/dl (2.5-4.0); Potassium 4.7 mmol/L (3.5-5.1); Total Protein 6.7 gm/dl (6.0-8.3)
--- NOTE | 2022-05-04 06:37 | Hospitalist Progress Note ---
Date of Service May 04, 2022 Assessment & Plan (1) Pneumonia: Plan: -Admission labs with leukocytosis, CXR with b/l lower lobe airspace opacities possibly suggesting pneumonia. Will treat as CAP -Lactate negative. Pt did not meet SIRS criteria on admission -Procalcitonin, MRSA nares, BCx pending -Continue cefepime, azithromycin added for atypical coverage -Currently saturating well on RA, afebrile, hemodynamically stable -Trend CBC (2) Hypervolemia: Plan: -CXR with evidence of b/l pulmonary edema and cardiomegaly, along with elevated BNP 296 -04/2019 echocardiogram- 60-65 EF, grade 1 diastolic dysfunction, mild LVH -Pt is without overt fluid overload on exam apart from mild bibasilar crackles. No formal history of CHF in chart but may potentially have exacerbation 2/2 pneumonia. Repeat echocardiogram ordered -Lasix 20 mg IV daily ordered -Monitor I's and O's -Supplement KCl while diuresis ongoing -Trend BMP (3) Hypertension: Plan: -Pt with profound BP elevation 200s/100s+, improved with labetalol -Suspect elevation due to pain and does not represent HTN crisis -Pt seemingly not on any antihypertensives per home medications -Consider initiation as outpatient -Continue to monitor (4) Elevated troponin: Plan: -Troponin 20 on admission, EKG without acute ST change -Likely mild demand ischemia from acute illness + potential CHF exacerbation -Trend to peak (5) Chronic obstructive pulmonary disease: Plan: -Known history of COPD and pt is longstanding smoker- quit summer 2021 -Pt does have wheezing on exam and may potentially have mild COPD exacerbation from pneumonia -Currently stable respiratory status with no dyspnea and mild wheezing -Continue azithromycin -Prednisone 40 mg daily initiated -Continue home Trelegy or formulary equivalent -Albuterol PRN, duoneb PRN (6) Hypomagnesemia: Plan: -Mg 1.6 on admission -Repleted in ER -Trend Mg (7) Hyperlipidemia: Plan: -Pt apparently on atorvastatin 20 mg and rosuvastatin 20 mg per home medication list -Last PCP note 01/16 reports pt is on rosuvastatin 40 mg daily -Continue rosuvastatin 20 mg at present, this should be clarified prior to discharge by PCP (8) GERD (gastroesophageal reflux disease): Plan: -Continue home pantoprazole (9) DM type 2 (diabetes mellitus, type 2): Plan: -Last A1C 8.3% in 04/2019 -Repeat A1C ordered -[place], SSI ordered- adjust per glucose trend (10) CAD (coronary artery disease): Plan: -Continue aspirin, Plavix, statin -Pt not on any beta sharona per home list (11) CKD (chronic kidney disease), stage III: Plan: -Cr 1.56 on admission, unclear baseline -Suspect possible JAVED given volume losses from emesis, though as above- pt's workup does suggest volume overload. 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 -Continue Wellbutrin (13) JAY on CPAP: Plan: -CPAP Hs (14) Neurogenic claudication due to lumbar spinal stenosis: Plan: -Continue gabapentin (15) Constipation: Plan: -CTAP with evidence of constipation -Bowel regimen ordered (16) Depression: Plan: -Continue Celexa Plan FENGI: DM2, heart-healthy, fluid restriction 1500 mls Code status: Full DVT ppx: Lovenox Isolation: None Disposition: PCU Admission and Anticipated Discharge Date Admission Date: May 04, 2022 Review of Systems Review of Systems: All systems reviewed & are unremarkable except as noted in HPI & below Physical Exam Physical Exam: General: Grossly A&O. NAD. Cooperative. HEENT: Atraumatic, normocephalic. EOMI Pulm: CTAB. -wheezes, -rales, -rhonchi. No respiratory distress. Cardiac: RRR, -mrg. Radial pulses intact and symmetrical. Abdominal: Nontender, nondistended, soft. Results & Data Results & [facility] ([facility]) Vital Signs (Past 12 Hours) Vital Signs Temp Pulse Pulse Resp BP BP Pulse Ox 05/04/22 04:12 36.8 C 82 18 123/62 94 05/04/22 02:00 36.6 C 85 16 136/64 98 05/04/22 02:00 05/04/22 02:00 36.6 C 85 16 136/64 98 05/04/22 01:48 87 05/04/22 01:00 80 15 170/88 H 95 05/04/22 00:45 79 18 148/95 H 94 05/04/22 00:15 77 17 152/79 H 93 05/04/22 00:00 81 14 163/77 H 96 05/03/22 23:45 80 15 166/82 H 94 05/03/22 23:30 81 16 133/81 94 05/03/22 23:15 80 12 137/67 90 05/03/22 23:00 82 16 120/65 92 05/03/22 22:45 80 15 149/73 H 95 05/03/22 22:30 86 15 131/62 92 05/03/22 22:15 82 17 130/72 92 05/03/22 22:08 84 16 173/82 H 93 05/04/22 01:11 79 16 170/88 H 94 05/03/22 22:46 81 05/03/22 21:30 80 13 169/87 H 98 05/03/22 21:20 80 13 193/84 H 99 05/03/22 21:10 87 17 204/97 H 92 05/03/22 21:01 83 24 188/89 H 92 05/03/22 20:50 87 22 199/106 H 97 05/03/22 20:40 80 12 197/88 H 97 05/03/22 20:30 80 15 203/101 H 95 05/03/22 20:20 82 13 185/91 H 92 05/03/22 20:10 76 16 201/99 H 95 05/03/22 20:45 88 L 05/03/22 20:00 79 14 203/89 H 93 05/03/22 19:50 85 13 206/90 H 95 05/03/22 19:40 80 12 211/89 H 94 05/03/22 19:20 88 16 192/94 H 98 05/03/22 19:16 77 15 213/92 H 05/03/22 18:40 221/102 H 05/03/22 18:40 79 24 98 O2 Del Method O2 Flow Rate 05/04/22 04:12 Room Air 05/04/22 02:00 Nasal Cannula 2 05/04/22 02:00 Nasal Cannula 2 05/04/22 02:00 Nasal Cannula 2 05/04/22 01:48 05/04/22 01:00 05/04/22 00:45 05/04/22 00:15 05/04/22 00:00 05/03/22 23:45 05/03/22 23:30 05/03/22 23:15 05/03/22 23:00 05/03/22 22:45 05/03/22 22:30 05/03/22 22:15 05/03/22 22:08 05/04/22 01:11 Nasal Cannula 2 05/03/22 22:46 05/03/22 21:30 05/03/22 21:20 05/03/22 21:10 05/03/22 21:01 05/03/22 20:50 05/03/22 20:40 05/03/22 20:30 05/03/22 20:20 05/03/22 20:10 05/03/22 20:45 Room Air 0 05/03/22 20:00 05/03/22 19:50 05/03/22 19:40 05/03/22 19:20 05/03/22 19:16 05/03/22 18:40 05/03/22 18:40 Resident Activity Tracking Resident Involvement: Resident Care Provided Care Provided: Adult Hospital Medicine (1) Pneumonia Laterality: bilateral Lung location: lower lobe of lung Pneumonia type: due to unspecified organism Qualified Code(s): J18.9 - Pneumonia, unspecified organism (3) Hypertension Hypertension type: unspecified Qualified Code(s): I10 - Essential (primary) hypertension
[2022-05-04 06:39] LABS: Estimated Average Glucose 263 mg/dl; Hemoglobin A1C 10.8 % (4.5-5.6)
[2022-05-04] MEDS ORDERED: CEFEPIME 2,000 MG in SYRINGE 0 ML IV SCH (08:00)
[2022-05-04] MEDS: ASPIRIN 325 MG ECTAB PO SCH (08:21)
[2022-05-04] MEDS: ROSUVASTATIN CALCIUM 20 MG TAB PO SCH (08:21)
[2022-05-04] MEDS: PANTOprazole 40 MG TAB PO SCH ×2 (08:21→21:15)
[2022-05-04] MEDS: CLOPIDOGREL BISULFATE 75 MG TAB PO SCH (08:21)
[2022-05-04] MEDS: CITALOPRAM 20 MG TAB PO SCH (08:22)
[2022-05-04] MEDS: DOCUSATE SODIUM 100 MG CAP PO SCH (08:22)
[2022-05-04] MEDS: buPROPion SR 150 MG TABCR PO SCH ×2 (08:22→21:16)
[2022-05-04] MEDS: POTASSIUM CHLORIDE CRTAB 20 MEQ TABCR PO SCH (08:22)
[2022-05-04] MEDS: MAGNESIUM OXIDE 400 MG TAB PO SCH (08:22)
[2022-05-04] MEDS: ENOXAPARIN INJ 40 MG/0.4 ML SYR SQ SCH (08:23)
[2022-05-04] MEDS: POLYETHYLENE (MIRALAX) 17 GM PACK PO SCH ×2 (08:24→21:17)
[2022-05-04] MEDS: FLUTICASONE FUROATE 100MCG 14 PUFFS/INHALER INH SCH (08:24)
[2022-05-04] MEDS: UMECLIDINIUM/VILANTEROL 62.5/25MCG 7 PUFFS/INHALER INH SCH (08:24)
[2022-05-04] MEDS: LANTUS PER UNIT CHARGE SQ SCH ×2 (08:35→21:18)
[2022-05-04] MEDS ORDERED: FUROSEMIDE INJ 20 MG/2 ML VIAL IV SCH (09:00)
[2022-05-04] MEDS ORDERED: NON-FORMULARY MEDICATION (Fluticasone-Umeclidin-Vilanter [Trelegy Ellipta] 100-62.5-25 mcg INH SCH (09:00)
[2022-05-04] MEDS ORDERED: predniSONE 20 MG TAB PO SCH (09:00)
--- NOTE | 2022-05-04 15:13 | Hospitalist Progress Note ---
Date of Service May 04, 2022 Assessment & Plan (1) Hypervolemia: (2) Acute kidney injury: (3) Pneumonia: (4) Hypertension: (5) Elevated troponin: (6) Chronic obstructive pulmonary disease: (7) Hypomagnesemia: (8) Hyperlipidemia: (9) GERD (gastroesophageal reflux disease): (10) DM type 2 (diabetes mellitus, type 2): (11) CAD (coronary artery disease): (12) CKD (chronic kidney disease), stage III: (13) Tobacco use: (14) JAY on CPAP: (15) Neurogenic claudication due to lumbar spinal stenosis: (16) Constipation: (17) Depression: Yoselyn Alvarez is a 76 yo M with PMH lung nodule s/p SBRT, COPD, CAD s/p stenting, PAD, HTN, HLD, IDDM2, CKD3, GERD, and depression admitted for acute left-sided chest pain associated with dry cough, chills, and posttussive NBNB emesis that was worsening prior to hospital presentation. Hypervolemia - CXR with mild bilateral pulmonary edema, along with elevated BNP 296 - 04/2019 echocardiogram- 60-65 EF, grade 1 diastolic dysfunction, mild LVH - Pt exam with mild vs inconclusive evidence of fluid overload. - Repeat echocardiogram ordered - s/p Lasix 20 mg IV x1. No diuretics on home regimen. - Strict I's and O's Left Chest and Rib Pain - Ddx msk vs cardiac origin. Significant cardiac history and risk factors noted. - Appears to be [id number] episode of pain that has been present since 8- foot fall 1 year prior. - CXR without evidence of rib fracture. Notable tenderness on palpation of left lateral ribs. - Will continue cardiac work-up: awaiting echo result Acute Kidney Injury on CKD III - Creatinine baseline 1.4-1.5 -> 1.76 - Hold further Lasix. Trend BMP Emphysema/COPD - Quit smoking summer 2021 but has relapsed. Currently smoking 0.5 - 1 PPD. - Clinical status less suggestive of exacerbation; dc prednisone - Lower suspicion for pneumonia; dc cefepime and azithomycin - Blood cultures pending, Procalcitonin negative. RSV/COVID/Influenza A&B negative. - Continue home Trelegy; PRN DuoNebs - History suggestive of recent partial medication non-adherence. Hypertension - Pt with BP elevation 200s/100s+ in the ER, s/p with labetalol. - Returned to normotensive state, now without anti-hypertensive. - Suspect elevation due to pain and does not represent HTN crisis - Has history of hypertensive episodes in the past. - Continue to monitor Elevated Troponin - Troponin 20 on admission, EKG without acute ST change - Likely mild demand ischemia from acute illness + potential CHF exacerbation - Trend to peak Hypomagnesemia, mild, repleted Hyperlipidemia - Pt on atorvastatin 20 mg and rosuvastatin 20 mg per home medication list - Last PCP note 01/16 reports pt is on rosuvastatin 40 mg daily - Continue rosuvastatin 20 mg at present, this should be clarified prior to discharge by PCP Hyperlipidemia - Continue home pantoprazole Insulin-Dependent Diabetes Mellitus Type 2 - Last A1C 8.3% in [id number] ordered - [place], SSI ordered- adjust per glucose trend Coronary Artery Disease -Continue aspirin, Plavix, statin Spinal Stenosis leading to Neurologic Claudication -Continue gabapentin Depression -Continue Celexa NUNO: DM2, heart-healthy, low sodium, fluid restriction 1500 mls Code status: Full DVT ppx: sq Lovenox Disposition: PCU Admission and Anticipated Discharge Date Admission Date: May 04, 2022 Supervising Physician Co-Signing Physician Notes Medical Student Supervision Note: I was personally present during medical student patient encounter and independently interviewed and examined the patient and verified the hawk history and physical, reviewed labs and image studies, discussed the case with Isauro Cornejo and agree with the findings and care plan. 76 y/o M with h/o HTN, HLD, DM, copd here with shortness of breath. He had not been taking his home meds for few days. In the ED he was noted to have sbp of >200 for concern of pneumonia, copd exacerbation - he was started on IV abx and steroids. o/e - A, sleep, Ox3, heart - regular, lungs - distant heart sounds. a/p - Shortness of breath - likely Mild Acute diastolic CHF - last echo from 2020 with diastolic dysfunction. fluid overload likely from sudden rise in BP from non- compliance of meds. repeat echo ordered. received dose of lasix this am. Hold further diuretics due to rise in creatinine. continue home meds. breathing improved overnight. monitor I and Os will d/c abx and steroids. Left side chest pain - sec to previous rib injury. No concern of ACS Troponin elevation - likely from demand ischemia JAVED - received dose of lasix last night. creatinine rise likely due to it. will do bladder scan for obstructive cause. follow renal function. Subjective Robson Alvarez is a 76 yo M with PMH lung cancer s/p SBRT, COPD, CAD s/p stenting, PAD, HTN, HLD, IDDM2, CKD3, GERD, and depression admitted for acute left-sided chest pain associated with dry cough, chills, and posttussive NBNB emesis that was worsening prior to hospital presentation. He reports feeling much better today. Feels that his breathing has improved and that he can sleep better. 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 Has stopped coughing and no longer feels he has chills. Fatigue improving with better rest. Clarified that he has left rib pain is chronic and has been present for years after a 7-foot fall from a riding tractor and suspects that at that time he fractured his rib(s). He endorses, however, that the pain was worse than normal on admission yesterday and that the pain has returned to its normal chronic state today. Endorses partial home medication non-compliance over the past few days with no other change in lifestyle. Review of Systems Review of Systems: Constitutional: No fever, No chills. Sleepy. Respiratory: No shortness of breath, No cough, No wheezing. Cardiovascular: No lightheadedness/presyncope, No chest pain, No palpitations. Gastrointestinal: No nausea, No vomiting, No diarrhea, No constipation, No heartburn, No abdominal pain. Musculoskeletal: Lateral left-sided pain over ribs. Exacerbated by coughing. No trauma. Skin: No rash, No pruritus, No breakdown. Neurologic: No abnormal balance, No numbness, No tingling, No headache. Physical Exam Physical Exam: General: Alert and oriented x3. No acute distress. Sleepy. HEENT: Normocephalic, moist oral mucosa. Cardiovascular: RRR, no M/R/G. No JVD. Respiratory: Lungs clear to auscultation, Respirations non-labored, Breath sounds equal. No wheezes, rales, rhonchi. Gastrointestinal: Soft, Non-tender, Non-distended, Normal bowel sounds. Musculoskeletal: Lateral left lower rib region tender to palpation. At baseline. Integumentary: Warm, Dry. No rashes. Psych: Appropriate mood and affect. Speech is of normal pace and content Results & Data Results & Data ([facility]) Vital Signs (Past 12 Hours) Vital Signs Temp Pulse Pulse Resp BP BP Pulse Ox 05/04/22 11:01 36.6 C 84 18 136/61 95 05/04/22 09:21 05/04/22 07:44 79 05/04/22 07:40 36.6 C 70 18 120/49 L 93 05/04/22 04:12 36.8 C 82 18 123/62 94 05/04/22 02:00 36.6 C 85 16 136/64 98 05/04/22 02:00 05/04/22 02:00 36.6 C 85 16 136/64 98 05/04/22 01:48 87 05/04/22 01:00 80 15 170/88 H 95 05/04/22 00:45 79 18 148/95 H 94 05/04/22 00:15 77 17 152/79 H 93 05/04/22 00:00 81 14 163/77 H 96 05/03/22 23:45 80 15 166/82 H 94 05/03/22 23:30 81 16 133/81 94 05/03/22 23:15 80 12 137/67 90 05/03/22 23:00 82 16 120/65 92 05/03/22 22:45 80 15 149/73 H 95 05/03/22 22:30 86 15 131/62 92 05/03/22 22:15 82 17 130/72 92 05/03/22 22:08 84 16 173/82 H 93 05/04/22 01:11 79 16 170/88 H 94 05/03/22 22:46 81 05/03/22 21:30 80 13 169/87 H 98 05/03/22 21:20 80 13 193/84 H 99 05/03/22 21:10 87 17 204/97 H 92 05/03/22 21:01 83 24 188/89 H 92 05/03/22 20:50 87 22 199/106 H 97 05/03/22 20:40 80 12 197/88 H 97 05/03/22 20:30 80 15 203/101 H 95 05/03/22 20:20 82 13 185/91 H 92 05/03/22 20:10 76 16 201/99 H 95 05/03/22 20:45 88 L 05/03/22 20:00 79 14 203/89 H 93 05/03/22 19:50 85 13 206/90 H 95 05/03/22 19:40 80 12 211/89 H 94 05/03/22 19:20 88 16 192/94 H 98 05/03/22 19:16 77 15 213/92 H 05/03/22 18:40 221/102 H 05/03/22 18:40 79 24 98 05/03/22 18:33 77 22 99 05/03/22 18:33 227/89 H 05/03/22 18:30 76 28 H 99 05/03/22 18:17 73 26 H 99 05/03/22 18:17 234/107 H 05/03/22 18:26 78 05/03/22 17:24 36.5 C 82 20 184/92 H 99 O2 Del Method O2 Flow Rate 05/04/22 11:01 Room Air 05/04/22 09:21 Room Air 05/04/22 07:44 05/04/22 07:40 Room Air 05/04/22 04:12 Room Air 05/04/22 02:00 Nasal Cannula 2 05/04/22 02:00 Nasal Cannula 2 05/04/22 02:00 Nasal Cannula 2 05/04/22 01:48 05/04/22 01:00 05/04/22 00:45 05/04/22 00:15 05/04/22 00:00 05/03/22 23:45 05/03/22 23:30 05/03/22 23:15 05/03/22 23:00 05/03/22 22:45 05/03/22 22:30 05/03/22 22:15 05/03/22 22:08 05/04/22 01:11 Nasal Cannula 2 05/03/22 22:46 05/03/22 21:30 05/03/22 21:20 05/03/22 21:10 05/03/22 21:01 05/03/22 20:50 05/03/22 20:40 05/03/22 20:30 05/03/22 20:20 05/03/22 20:10 05/03/22 20:45 Room Air 0 05/03/22 20:00 05/03/22 19:50 05/03/22 19:40 05/03/22 19:20 05/03/22 19:16 05/03/22 18:40 05/03/22 18:40 05/03/22 18:33 05/03/22 18:33 05/03/22 18:30 05/03/22 18:17 05/03/22 18:17 05/03/22 18:26 05/03/22 17:24 Room Air Intake and Output 05/03/22 05/04/22 05/04/22 22:59 06:59 14:59 Intake Total 600 / 980 380 / 980 Output Total 375 / 375 Balance 600 / 605 5 / 605 Intake: IV 600 / 855 255 / 855 Azithromycin 500 mg In Dextrose 255 / 255 5% 250 ml @ 127.5 mls/hr IV ONE ONE Rx#:[id number] Magnesium Sulfate / D5w 1 gm In 100 / 100 100 ml @ 100 mls/hr IV NOW STA Rx#:[id number] Sodium Chloride 0.9% 500 ml @ 500 / 500 999 mls/hr IV .Q31M STA Rx#: [id number] Oral 125 / 125 Output: Urine 375 / 375 Other: Other Intake Source sips Weight 85.9 kg 84.2 kg Weight Measurement Method Chair Scale Standing Scale Laboratory Results Cardiac Enzymes 05/03/22 05/03/22 05/03/22 Range/Units 17:50 18:43 20:00 AST Cancelled 13 Troponin I High Sens 20.2 H (0-20) pg/ml B-Natriuretic Peptide 296 H (0-100) pg/ml 05/04/22 05/04/22 05/04/22 Range/Units 02:25 02:25 09:46 AST 13 Troponin I High Sens 26.0 H 24.0 H (0-20) pg/ml B-Natriuretic Peptide (0-100) pg/ml Coagulation 05/03/22 Range/Units 20:00 B-Natriuretic Peptide 296 H (0-100) pg/ml CBC 05/03/22 05/04/22 Range/Units 17:50 02:25 WBC 14.21 H 11.33 H (4.8-10.8) K/ul RBC 5.24 4.62 L (4.70-6.10) M/uL Hgb 16.6 14.6 (14.0-18.0) g/dl Hct 47.7 42.8 (42.0-52.0) % Plt Count 294 291 (130-400) K/uL Neut # (Auto) 11.07 H 8.54 H (1.40-6.50) K/uL Lymph # (Auto) 2.32 2.08 (1.2-3.4) K/uL [place] # (Auto) 0.73 H 0.64 H (0.11-0.59) K/uL Eos # (Auto) 0.01 0.00 (0-0.50) K/uL Baso # (Auto) 0.04 0.04 (0-0.2) K/uL Comprehensive Metabolic Panel 05/03/22 05/03/22 05/04/22 Range/Units 17:50 18:43 02:25 Sodium Cancelled 136 135 L Potassium Cancelled 4.3 4.7 Chloride Cancelled 100 99 Carbon Dioxide Cancelled 24 31 BUN Cancelled 28 H 31 H Creatinine Cancelled 1.56 H 1.76 H Glucose Cancelled 247 H 258 H Calcium Cancelled 10.1 9.8 AST Cancelled 13 13 ALT Cancelled 10 10 Alkaline Phosphatase Cancelled 82 74 Total Protein Cancelled 7.1 6.7 Albumin Cancelled 3.9 3.8 (3) Pneumonia Laterality: bilateral Lung location: lower lobe of lung Pneumonia type: due to unspecified organism Qualified Code(s): J18.9 - Pneumonia, unspecified organism (4) Hypertension Hypertension type: unspecified Qualified Code(s): I10 - Essential (primary) hypertension
[2022-05-04 15:23] LABS: Calcium 9.8 mg/dl (8.5-10.1); Est GFR (African American) 40.9 ml/min; Est GFR (Non-African American) 35.3 ml/min; Potassium 4.6 mmol/L (3.5-5.1)
--- NOTE | 2022-05-04 16:03 | XCELERA ---
[id number]
[2022-05-04] MEDS ORDERED: GABAPENTIN 800 MG TAB PO SCH (21:00)
[2022-05-05] MEDS ORDERED: AZITHROMYCIN 250 MG in DEXTROSE 5% 250 ML IV SCH (06:00)
[2022-05-05 07:52] LABS: Basophils # (auto) 0.06 K/uL (0-0.2); Basophils % (auto) 0.5 %; Eosinophils # (auto) 0.02 K/uL (0-0.50); Eosinophils % (auto) 0.2 %; Hematocrit (blood only) 38.4 % (42.0-52.0); Hemoglobin 13.4 g/dl (14.0-18.0); Immature Granulocytes # (auto) 0.03 K/uL (0.01-0.20); Immature Granulocytes % (auto) 0.2 %; Lymphocytes # (auto) 3.22 K/uL (1.2-3.4); Lymphocytes % (auto) 26.7 %; Mean Corpuscular Hemoglobin 32.2 pg (25.0-34.0); Mean Corpuscular Hgb Conc 34.9 g/dL (32.0-36.0); Mean Corpuscular Volume 92.3 fL (80.0-100.0); Mean Platelet Volume 9.6 fL (9.4-12.4); Monocytes # (auto) 1.09 K/uL (0.11-0.59); Neutrophils # (auto) 7.66 K/uL (1.40-6.50); Neutrophils % (auto) 63.4 %; Platelet Count 237 K/uL (130-400); RDW Coefficient of Variation 13.1 % (11.5-14.5); RDW Standard Deviation 44.4 fL (36.4-46.3); Red Blood Count 4.16 M/uL (4.70-6.10); White Blood Count 12.08 K/ul (4.8-10.8)
[2022-05-05 08:09] LABS: BUN Creatinine Ratio 21.5 (10-20); Calcium 9.4 mg/dl (8.5-10.1); Creatinine Clr Calc Pharmacy 37.2 ml/min; Est GFR (African American) 42.6 ml/min; Est GFR (Non-African American) 36.8 ml/min
[2022-05-05] MEDS: INSULIN ASPART PER UNIT SC SCH ×2 (08:46→11:45)
[2022-05-05] MEDS: LANTUS PER UNIT CHARGE SQ SCH (08:46)
[2022-05-05] MEDS: PANTOprazole 40 MG TAB PO SCH (08:47)
[2022-05-05] MEDS: POTASSIUM CHLORIDE CRTAB 20 MEQ TABCR PO SCH (08:47)
[2022-05-05] MEDS: buPROPion SR 150 MG TABCR PO SCH (08:47)
[2022-05-05] MEDS: ASPIRIN 325 MG ECTAB PO SCH (08:47)
[2022-05-05] MEDS: CLOPIDOGREL BISULFATE 75 MG TAB PO SCH (08:47)
[2022-05-05] MEDS: MAGNESIUM OXIDE 400 MG TAB PO SCH (08:47)
[2022-05-05] MEDS: ENOXAPARIN INJ 40 MG/0.4 ML SYR SQ SCH (08:47)
[2022-05-05] MEDS: ROSUVASTATIN CALCIUM 20 MG TAB PO SCH (08:48)
[2022-05-05] MEDS: CITALOPRAM 20 MG TAB PO SCH (08:48)
[2022-05-05] MEDS: FLUTICASONE FUROATE 100MCG 14 PUFFS/INHALER INH SCH (09:06)
[2022-05-05] MEDS: UMECLIDINIUM/VILANTEROL 62.5/25MCG 7 PUFFS/INHALER INH SCH (09:07)
[2022-05-05] MEDS: DOCUSATE SODIUM 100 MG CAP PO SCH (09:07)
[2022-05-05] MEDS: POLYETHYLENE (MIRALAX) 17 GM PACK PO SCH (09:08)
--- NOTE | 2022-05-05 09:10 | Electrocardiogram Report ---
Test Reason : Blood Pressure : / mmHG Vent. Rate : 080 BPM Atrial Rate : 080 BPM P-R Int : 140 ms QRS Dur : 088 ms QT Int : 402 ms P-R-T Axes : 068 058 055 degrees QTc Int : 463 ms Poor data quality, interpretation may be adversely affected Normal sinus rhythm with sinus arrhythmia Normal ECG When compared with ECG of 27-JUL-2021 17:18, No significant change was found Confirmed by Arsen Calvo ([id number]) on 05/05/2022 9:09:58 AM Referred By: REFERRED SELF Confirmed By:Arsen Calvo
--- NOTE | 2022-05-05 09:22 | Electrocardiogram Report ---
Test Reason : Blood Pressure : / mmHG Vent. Rate : 080 BPM Atrial Rate : 080 BPM P-R Int : 152 ms QRS Dur : 096 ms QT Int : 434 ms P-R-T Axes : 058 051 060 degrees QTc Int : 500 ms Normal sinus rhythm Normal ECG When compared with ECG of 03-MAY-2022 17:33, (unconfirmed) No significant change was found Confirmed by Arsen Calvo ([id number]) on 05/05/2022 9:22:28 AM Referred By: REFERRED SELF Confirmed By:Arsen Calvo
--- NOTE | 2022-05-05 10:52 | Discharge Summary ---
Date of Service May 05, 2022 Admission HPI Per Admitting Provider 76 yo M with PMH lung cancer s/p SBRT, PAD, HTN, HLD, IDDM2, CAD s/p stenting, COPD, CKD3, GERD, depression presenting with rib pain. Pt reports yesterday afternoon he experienced sudden onset chest/abdominal pain- mostly over L ribs with some radiation downward to abdomen. This was associated with dry cough, chills and posttussive NBNB emesis. Coughing exacerbates the pain. Denies substernal chest pain or fever. Symptoms persisted and increased in severity which limited his sleep last night. He continued to worsen until he came to ER this evening. Pt arrived to ER with BP over 200s/100s, normal HR, O2 normal on RA. ED labs with WBC 14, Cr 1.56 (unclear baseline), glucose 247, Mg 1.6, troponin 20, BNP 296, CTAP with evidence of stool burden in transverse and ascending colon, CXR with cardiomegaly, pulmonary edema and faint b/l airspace opacities. ER interventions include 500 cc NS bolus, Zofran, morphine, labetalol 10 mg IV x2, Mg repletion, albuterol nebulizer and cefepime. On my evaluation, pt reports feeling better than before though the L rib pain is still present. He reported fatigue and wanted to sleep. Denied dyspnea, fever, chest pain. Admission Exam Per Admitting Provider General: tired, elderly male, no acute distress, wearing nasal cannula but no oxygen flowing HEENT: moist mucous membranes, PERRLA, EOMI, no JVD b/l CV: RRR, normal S1 and S2, no murmurs Resp: Mild expiratory wheezing across upper lung casey, faint bibasilar crackles L > R, no increased work of breathing, good inspiratory effort Abd: soft, nondistended, nontender, no guarding or rebound MSK: tender to palpation along lateral L torso over rib distribution Neuro: AOx3, no focal motor or sensory deficit Skin: No rashes, warm and dry Ext: no peripheral edema, pedal pulses intact b/l, Principal Diagnosis MSK chest/rib pain Discharge Exam GENERAL: No acute distress. Well developed and well nourished. Vital signs reviewed. EYES: Anicteric sclerae. HENT: Moist mucous membranes. RESPIRATORY: No increased work of breathing. No rhonci. CARDIOVASCULAR: Regular rate and rhythm. No murmurs. CHEST WALL: + TTP over left chest wall ABDOMEN: Soft, non-tender and non-distended. Normal bowel sounds. SKIN: Warm, dry. NEUROLOGIC: A/O x3. Normal speech. No focal neurological deficits. PSYCHIATRIC: Cooperative. Appropriate mood and affect. Discharge Data Allergies Allergy/AdvReac Type Severity Reaction Status Date / Time adhesive Allergy Mild Silk/plastic Verified 05/03/22 20:31 adhesive tape (redness, blistering) Consultations 05/03/22 23:50 ED Decision to Admit Stat Ordered Studies 05/03/22 18:30 CT abd pelvis IV con only Stat Hospital Course (1) Chest pain: Robson Alvarez is a 76 yo M with PMH lung nodule s/p SBRT, COPD, CAD s/p sten ting, PAD, HTN, HLD, IDDM2, CKD3, GERD, and depression admitted for acute left- sided chest pain associated with dry cough, chills, and posttussive NBNB emesis that was worsening prior to hospital presentation. Left Chest and Rib Pain - Appears to be [id number] episode of pain that has been present since 7- foot fall 1 year prior. Pain exacerbated with recent episode of posttussive emesis - CXR without evidence of rib fracture. Notable tenderness on palpation of left lateral ribs. - Patient did undergo acute cardiac eval to r/o cardiac origin for his pain - Repeat echo 05/04/22 w/ LVEF 60-65%, grade 1 diastolic dysfunction Elevated Troponin Coronary Artery Disease - Troponin 20 on admission, EKG without acute ST change - Likely mild demand ischemia from acute illness - Continue aspirin, Plavix, statin Acute gastroenteritis - wasn't able to tolerate PO at home. Didn't take his home meds before admission - symptoms resolved by next day of admission. Hypertensive urgency - Pt with BP elevation 200s/100s+ in the ER, s/p with labetalol. - Returned to normotensive state, now without anti-hypertensive. - Suspect elevation due to pain and does not represent HTN crisis - Has history of hypertensive episodes in the past. - Recommend recheck with PCP within 1 week of hospital discharge Hypervolemia, likely mild acute diastolic CHF - CXR on admission with mild bilateral pulmonary edema, along with elevated BNP 296 - 04/2019 echocardiogram- 60-65 EF, grade 1 diastolic dysfunction, mild LVH - Repeat echo as noted above, unchanged - Patient did receive 1 dose of Lasix 20 mg IV during admission. SOB/hypervolemia improved overnight. No further diuretics given d/t rise in creatinine. - No diuretics on home regimen. - Fluid overload likely from sudden rise in BP from inability to take home meds Emphysema/COPD - Quit smoking summer 2021 but has relapsed. Currently smoking 0.5 - 1 PPD. - Received dose of steroid and antibiotics. No concern of infection or copd exacerbation - abx and steroids stopped. - Continue home Trelegy; - History suggestive of recent partial medication non-adherence. Acute Kidney Injury on CKD III - Creatinine baseline 1.4-1.5; 1.77 on discharge - Recommend repeat BMP as outpatient in 1 week Pulmonary Nodule - Patient under evaluation with rad/onc and pulmonology - He does have repeat scheduled outpatient chest CT scheduled for next Sunday 05/07 - Outpatient rad/onc appt scheduled for next Tuesday 05/09 - No indication for more emergent imaging or f/u at this time Hyperlipidemia - Pt on atorvastatin 20 mg and rosuvastatin 20 mg per home medication list - Last PCP note 01/16 reports pt is on rosuvastatin 40 mg daily - Continue rosuvastatin 20 mg on discharge - Patient advised to clarify this with PCP after hospital discharge Insulin-Dependent Diabetes Mellitus Type 2 - Last A1C 8.3% in [id number] ordered - Continue home regimen Continued other home meds Disposition: home/self-care Code status: Full code (2) Acute kidney injury: (3) Hypertension: (4) Hypervolemia: (5) Elevated troponin: (6) Hypomagnesemia: (7) Tobacco use: (8) Neurogenic claudication due to lumbar spinal stenosis: (9) JAY on CPAP: (10) Solitary pulmonary nodule: (11) DM type 2 (diabetes mellitus, type 2): Yoselyn Alvarez is a 76 yo M with PMH lung nodule s/p SBRT, COPD, CAD s/p stenting, PAD, HTN, HLD, IDDM2, CKD3, GERD, and depression admitted for acute left-sided chest pain associated with dry cough, chills, and posttussive NBNB emesis that was worsening prior to hospital presentation. Left Chest and Rib Pain - Appears to be [id number] episode of pain that has been present since 7- foot fall 1 year prior. Pain exacerbated with recent episode of posttussive emesis - CXR without evidence of rib fracture. Notable tenderness on palpation of left lateral ribs. - Patient did undergo acute cardiac eval to r/o cardiac origin for his pain - Repeat echo 05/04/22 w/ LVEF 60-65%, grade 1 diastolic dysfunction Elevated Troponin Coronary Artery Disease - Troponin 20 on admission, EKG without acute ST change - Likely mild demand ischemia from acute illness -Continue aspirin, Plavix, statin Acute gastroenteritis - improved on admission. - wasn't able to tolerate PO hence wasn't able to take his home meds Hypertensive urgency - Pt with BP elevation 200s/100s+ in the ER with troponin elevation - Returned to normotensive state. - Suspect elevation due to pain - Recommend recheck with PCP within 1 week of hospital discharge Possible mild acute diastolic congestion heart failure - CXR on admission with mild bilateral pulmonary edema, along with elevated BNP 296 - 04/2019 echocardiogram- 60-65 EF, grade 1 diastolic dysfunction, mild LVH - Repeat echo as noted above, unchanged - Patient did receive 1 dose of Lasix 20 mg IV during admission. No further dose due to rise in creat. -No diuretics on home regimen. -hypertensive episode likely contributed. Acute Kidney Injury on CKD III - Creatinine baseline 1.4-1.5; 1.77 on discharge - Recommend repeat BMP as outpatient in 1 week Emphysema/COPD - Quit smoking summer 2021 but has relapsed. Currently smoking 0.5 - 1 PPD. - Blood cultures negative, Procalcitonin negative. RSV/COVID/Influenza A&B negative. - started on steroids and abx but d/eliecer due to no concern of infection - Continue home Trelegy; PRN DuoNebs - History suggestive of recent partial medication non-adherence. Hyperlipidemia - Pt on atorvastatin 20 mg and rosuvastatin 20 mg per home medication list - Last PCP note 01/16 reports pt is on rosuvastatin 40 mg daily - Continue rosuvastatin 20 mg on discharge - Patient advised to clarify this with PCP after hospital discharge Insulin-Dependent Diabetes Mellitus Type 2 - Last A1C 8.3% in [id number] ordered - Continue home regimen Continued home medication Disposition: home/self-care Code status: Full code Total Time Total Time Spent Total Time Spent (In Minutes): See attending attestation Discharge Plan Discharge Items Patient Disposition: Home - Self-Care Reason For Visit: PNEUMONIA Discharge Diagnosis: Left chest wall/rib pain Condition on Discharge: Fair Activity: Resume your previous activity Non-emergency contact: Primary Care Provider Call non-emergency contact if: you have any medication questions, your symptoms worsen and your pain is not controlled Follow-up/Referrals: Duran Singh, CARROLL [Primary Care Provider] - Diet: Carb Consistent or DM2 Addtl Attending Provider Instructions: Mr. Alvarez, It was our pleasure to care for you at [facility] from 05/03/22 to 05/05/22. You initially presented to the ER with concern for LUQ abdominal/chest wall pain and vomiting with concern for pneumonia. You were admitted to the hospital and were further evaluated with close monitoring, labs, and imaging. You have done well and it appears that the left side pain is most likely related to musculoskeletal pain (from your prior ribs fractures) that was aggravated by the recent episodes of vomiting. This pain also caused your blood pressure to increase. At this time, your pain has improved, your blood pressure is stable, and we feel that it is safe for you to be discharged home. Please follow up with your outpatient chest CT as scheduled this upcoming week (05/07) and your rad/onc follow up appointment as scheduled on 05/11. Otherwise, you should follow up with your PCP in 1 week. It is important that you take all of your home medications as prescribed. There are no medication changes to your home regiment that were made during this hospitalization. It is important that you review your home medications with your PCP. Please return to the ER for any worsening or concerning symptoms including fever, chest pain, shortness of breath, or worsening pain. Pending Studies at Discharge: No Stand-Alone Forms: My [employer], Smoking Cessation Medications and DC Order Prescriptions: Continued cholecalciferol (vitamin D3) 1,250 mcg (50,000 unit) capsule 50,000 unit PO DAILY docusate sodium [Colace] 100 mg capsule 200 mg PO DAILY clopidogrel [Plavix] 75 mg tablet 75 mg PO QAM pantoprazole [Protonix] 40 mg tablet,delayed release (DR/EC) 40 mg PO BID nitroglycerin 0.4 mg tablet, sublingual 0.4 mg SL Q5M PRN (Reason: Chest Pain) magnesium oxide 200 mg magnesium tablet 200 mg PO DAILY citalopram [Celexa] 40 mg tablet 60 mg PO QAM Patient Comments: 1.5 TAB, ( 40 MG) Trelegy Ellipta 100-62.5-25 mcg blister with device 1 inh inhalation DAILY Qty: 60 2RF bupropion HCl (smoking deter) 150 mg tablet extended release 12 hr 150 mg PO BID Qty: 60 2RF albuterol sulfate [Ventolin HFA] 90 mcg/actuation HFA aerosol inhaler 2 puffs INH Q6H PRN (Reason: shortness of breath or wheezing) Qty: 8.5 5RF rosuvastatin [Crestor] 20 mg tablet 20 mg PO QAM gabapentin [Neurontin] 600 mg tablet 800 mg PO HS Tresiba FlexTouch U-100 100 unit/mL (3 mL) insulin pen 26 unit SUBCUT QAM Novolin N FlexPen 100 unit/mL (3 mL) insulin pen 0 unit SUBCUT TIDM Patient Comments: With meals and at bedtime Rx Instructions: >120-10 units 121-150-15 units 151-200-20 units aspirin 325 mg Tablet 325 mg PO DAILY Ozempic 1 mg/dose (4 mg/3 mL) pen injector 2 mg SUBCUT WK Rx Instructions: SUNDAYS--PER SPOUSE "TOOK LATE THIS WEEK". Discontinued atorvastatin 20 mg tablet 20 mg PO DAILY No Action (DME) CPAP Machine Misc See Rx Instructions .ROUTE .MEDSUPPLY Qty: 1 0RF Rx Instructions: Auto CPAP 5-17 cmH2O; heated humidification; capable of collecting AHI and compliance data with modem; duration use 99 years (DME) CPAP Supplies Misc See Rx Instructions .ROUTE .MEDSUPPLY Qty: 1 0RF Rx Instructions: tubing, filters, all appropriate supplies; mask fit (DME) CPAP Machine Misc See Rx Instructions .ROUTE .MEDSUPPLY Qty: 1 0RF Rx Instructions: INCREASE CPPAP TO 12 CMS TO OPAL HOME Discharge Orders: Discharge Order (Routine); Ordered 05/05/22 Ordered By: Savita Miranda Admission Data Admit Date/Time: 05/04/22 00:37 Attending Provider: Caty Moralez Admit Provider: Marlee Carrion Primary Care Provider: Duran Singh Other Providers: Mike Miller Other Interventions: Discharge Summary Assessment (RN) Last Done: 05/05/22 11:19 Supervising Physician Co-Signing Physician Notes Resident Physician Supervision Note: I independently interviewed and examined the patient and verified the hawk history and physical, reviewed labs and image studies and agree with resident findings and care plan.
--- NOTE | 2022-05-09 10:02 | Coding Query ---
CODING QUERY To promote full compliance with coding requirements relating to patient care, provider participation is requested in all cases of sawmill manager uncertainty. Please assist us with the question(s) below: Coding Question(s): Pneumonia is documented on the ER and H&P, and the 05/04 Progress Note documents, "Lower suspicion for pneumonia; dc cefepime and azithomycin", and the documentation, regarding Pneumonia on the Discharge Summary is under Adtl Attending Provider Instructions, "You initially presented to the ER with concern for LUQ abdominal/chest wall pain and vomiting with concern for pneumonia. You were admitted to the hospital and were further evaluated with close monitoring, labs, and imaging. You have done well and it appears that the left side pain is most likely related to musculoskeletal pain (from your prior ribs fractures) that was aggravated by the recent episodes of vomiting". Please specify below, in your clinical opinion, regarding Pneumonia: (x ) Pneumonia is Ruled-Out ( ) Pneumonia still possible ( ) Other: Please Specify Physician's Response(s): Thank you Becky Galvan Principal Diagnosis: "that condition established after study, to be chiefly responsible for occasioning the admission of the patient to the hospital for care." Co-Existing Principal Diagnosis: "when two or more diagnoses equally meet the criteria for principal diagnosis as determined by the circumstances of admission, diagnostic work up, and/or therapy provided, and the Alphabetic Index, Tabular List, or another coding guideline does not provide sequencing direction, any one of the diagnoses may be sequenced first." "When the physician has documented what appears to be a current diagnosis in the body of the record, but has not included the diagnosis in the final diagnostic statement, the physician should be asked whether the diagnosis should be added." (Source Coding [facility] 2 QTR90. p3-4) LULI
== END 2022-05-05 13:43 | disposition home or self-care (01) ==
LOC: ED 17:11 → INTOOBSV 05-04 00:37 → 4W 05-04 00:37 → SUATTDRO 05-04 00:37 → 4W 05-04 01:11
DX: E11.51 Type 2 diabetes mellitus with diabetic peripheral angiopathy without gangrene; F17.211 Nicotine dependence, cigarettes, in remission; E83.42 Hypomagnesemia; Z79.82 Long term (current) use of aspirin; E11.22 Type 2 diabetes mellitus with diabetic chronic kidney disease; I13.0 Hypertensive heart and chronic kidney disease with heart failure and stage 1 through stage 4 chronic kidney disease, or unspecified chronic kidney disease; M19.90 Unspecified osteoarthritis, unspecified site; I50.31 Acute diastolic (congestive) heart failure; Z79.02 Long term (current) use of antithrombotics/antiplatelets; E78.5 Hyperlipidemia, unspecified; Z95.5 Presence of coronary angioplasty implant and graft; R09.02 Hypoxemia; Z83.3 Family history of diabetes mellitus; Z79.51 Long term (current) use of inhaled steroids; Z79.899 Other long term (current) drug therapy; N17.9 Acute kidney failure, unspecified; M48.062 Spinal stenosis, lumbar region with neurogenic claudication; S22.39XS Fracture of one rib, unspecified side, sequela; K59.00 Constipation, unspecified; Z91.138 Patient's unintentional underdosing of medication regimen for other reason; J43.9 Emphysema, unspecified; G47.33 Obstructive sleep apnea (adult) (pediatric); N18.30 Chronic kidney disease, stage 3 unspecified; G89.21 Chronic pain due to trauma; I69.398 Other sequelae of cerebral infarction; Z91.81 History of falling; K52.9 Noninfective gastroenteritis and colitis, unspecified; T50.906A Underdosing of unspecified drugs, medicaments and biological substances, initial encounter; I16.0 Hypertensive urgency; R07.89 Other chest pain; Z91.048 Other nonmedicinal substance allergy status; I25.10 Atherosclerotic heart disease of native coronary artery without angina pectoris; I24.8 Other forms of acute ischemic heart disease; R91.1 Solitary pulmonary nodule; Z79.4 Long term (current) use of insulin; Z79.85 Long-term (current) use of injectable non-insulin antidiabetic drugs

== ENCOUNTER 2024-02-28 18:53 | Observation (INO) ==
[2024-02-28] MEDS: SODIUM CHLORIDE 0.9% 1,000 ML IV ONE (19:43)
[2024-02-28] MEDS: DEXTROSE 50% 50 ML SYRINGE IV ONE (19:47)
--- NOTE | 2024-02-28 20:35 | Emergency Department Note ---
Impression & Plan Acute hypotension, Pain in right testicle, Hypoglycemia ED Provider Note NAME: RAFAL BONNER AGE: 78 SEX: M : 1945 ARRIVES VIA: Walk-In INFORMANT: Patient, ED PROVIDER(S): Lara Dozier MD CHIEF COMPLAINT: Right testicular pain HPI: This is a 78-year-old male present for right testicular pain. Patient notes with past 2 days he has had shooting right testicular pain that is intermittent. Not associated with palpation. He has history of adrenal cancer otherwise. He notes that that he feels somewhat unwell at this time, dizzy without chest pain or shortness of breath. No fevers at home. No redness or swelling to the groin/testicle as per ROS: See above HPI for pertinent positives & negatives. A total of 10 systems reviewed and were otherwise negative. PAST MEDICAL HISTORY: See Below PAST SURGICAL HISTORY: See Below FAMILY HISTORY: See Below SOCIAL HISTORY: See Below HOME MEDICATIONS: See Below ALLERGIES: See Below VITALS: See Below PHYSICAL EXAMINATION: General: resting comfortably in no acute distress Head: Normocephalic and atraumatic Eyes: Normal inspection, extraocular muscles intact Ear, nose, throat: Normal external exam Neck: Normal range of motion Respiratory: lungs clear to auscultation bilaterally Cardiovascular: Regular rate/rhythm, no murmur GI: soft, nontender, no guarding or rebound : No obvious erythema, crepitus or tenderness to palpation of the scrotum/testicles, and palpation reveals no nodule Extremities: nontender, moves all extremities Neuro: The patient awake and alert, appropriately conversive, no focal deficits, symmetric faces Skin: Warm, dry, and intact MEDICAL DECISION MAKING: This is 78-year-old male present for right testicular pain. Consider sepsis as patient has currently 70s over 40s. 2 large-bore IVs are obtained. Patient's blood glucose is in the 30s, will give amp of D50 as well. Will give 1 L normal saline. Otherwise patient spies and looks clinically well. Consider source for sepsis possible urine, prostate, epididymitis, pneumonia. -Will do chest x-ray to help rule out for pneumonia. does mention dry cough for the past few days -Will do basic blood work and ultrasound no abdominal tenderness otherwise -No significant leukocytosis is noted, leukopenia is actually noted with a WC count of 3.42. Anemia to 9.3. Slight hyponatremia is noted. Creatinine 2.08. Urinalysis does not reveal signs of UTI -Patient not appear signs of Braulio's gangrene otherwise. -Upper respiratory panel negative -ECG independently interpreted by me with normal sinus rhythm, rate of 85, normal axis, normal VT, normal QRS, normal QTc, no ST segment elevations consistent with STEMI criteria -Ultrasound of the scrotum does not reveal torsion -Chest x-ray as Independently interpreted by me reveals stable left midlung lesion, no other focal opacities or pneumothorax -Patient required mission due to his hypotension, hypoglycemia, testicular pain -Discussed care for admission at this time Differential diagnosis: Urosepsis, testicular torsion, sepsis, PE, pneumonia, hypoglycemia Independent History obtained from: Diagnostics interpreted by me: ECG: See above Cardiac Monitoring: An order was placed for continuous cardiac monitoring. The monitor shows a rate of 84 with sinus rhythm. Critical Care Note: I have personally spent 45 minutes of critical care time in the direct management of this patient. This includes bedside care, interpretation of diagnostic studies, and testing, discussion with consultants, patient, and family members, and other required patient management activities. This 45 minutes is in excess of all separately billable procedures. Past Med/Surg History Problem List (Updated 03/01/24 @ 23:17 by Lara Dozier MD) Hypoglycemia (Acute) Pain in right testicle (Acute) Testicular pain, right Metastatic lung cancer (metastasis from lung to other site) Lesion of adrenal gland Anemia Vitamin D deficiency Stage 3b chronic kidney disease Constipation JAY on CPAP Neurogenic claudication due to lumbar spinal stenosis Tobacco use Hypomagnesemia Elevated troponin Hypervolemia LUQ abdominal pain (Acute) Hypoxia (Acute) Leukocytosis (Acute) Pneumonia (Acute) Vomiting (Acute) Hypertension (Acute) Acute kidney injury (Acute) Acidosis, lactic (Acute) Acute hypotension (Acute) Acute dehydration (Acute) Solitary pulmonary nodule (Chronic) Depression Chest pain Lung cancer Stroke Immediately after spinal fusion 04/2019---went into kidney failure at the same time > only deficit is sometimes he "dribbles out of the left side of his mouth" Peripheral arterial occlusive disease "total occlusion of the SFA and the left mid thigh area with reconstitution with collaterals and monophasic flow bilateral below knee area" per cardiology office visit note 03/2019 Hyperlipidemia GERD (gastroesophageal reflux disease) controlled DM type 2 (diabetes mellitus, type 2) CAD (coronary artery disease) angioplasty/KARRIE to pRCA (2014) Synergy stent (11/03/2020) after failed stress test Chronic obstructive pulmonary disease CKD (chronic kidney disease), stage III Pulmonary nodule 1 cm or greater in diameter (Chronic 08/25/20) Medical History (Updated 03/01/24 @ 23:17 by Lara Dozier MD) Acute and chronic respiratory failure with hypercapnia Hyperkalemia Urinary retention Hypoxia Somnolence Arthritis Urinary problem urinary hesitancy Spinal stenosis Diabetes IDDM Sleep apnea awaiting CPAP Hypertension Carotid arterial disease "no ICA stenosis.. severe left ECA stenosis" per cardiology office visit note 03/2019 > follows with Dr. Reyes in [place] Interstitial lung disease Surgical History (Updated 02/23/21 @ 09:17 by Caridad Servin RN) History of elbow surgery right History of melanoma excision History of lumbar spinal fusion L5-S1 decompression/fusion (09/17/19): Grade view 2, Glidescope#3, ETT 8.0 at [facility] Status post lumbar surgery History of arthroscopy of right shoulder History of colonoscopy History of tonsillectomy History of hernia surgery X2 History of thumb surgery R/L History of repair of left rotator cuff History of cardiac cath stent x1 (2014) Synergy stent x1 (11/03/2020) Family History (Updated 04/04/21 @ 08:46 by Maryanne Morfin RN) Mother Diabetes Heart disease Cancer Lung cancer Father Cancer Oral cancer Other No family history of adverse response to anesthesia Social History Smoking Status: Current every day smoker Tobacco Type: Cigarettes Cigarettes Per Day: 2; Second Hand Exposure: No; Do You Dip or Chew Tobacco: No; Hx Alcohol Use: Yes Alcohol type: beer and hard liquor Hx Substance Use: No Preferred Language: Malagasy Communication Ability: Effective Visual Impairment: No Limitations Hearing Ability: Normal Software Business Analyst Required: No Beliefs That Will Affect Care: None Current Living Situation: Spouse current occupational status: retired Feels Safe at Home: Yes Childhood Exposure to Second-Hand Smoke: Yes Diet Comment: food choices with less carbs, uses sugar substitute Assistive Devices: Glasses Allergies Allergies Allergy/AdvReac Type Severity Reaction Status Date / Time adhesive Allergy Mild Silk/plastic Verified 02/28/24 23:31 adhesive tape (redness, blistering) Sulfa (Sulfonamide AdvReac Intermediate nausea & Verified 02/28/24 23:31 Antibiotics) vomiting Home Meds Home Medications Medication Instructions Recorded Confirmed pantoprazole 40 mg tablet,delayed 40 mg PO BID 12/23/18 02/28/24 release (Protonix) rosuvastatin 20 mg tablet (Crestor) 20 mg PO QAM 09/06/20 02/28/24 citalopram 40 mg tablet (Celexa) 60 mg PO QAM 04/04/21 02/28/24 insulin NPH isoph U-100 human 100 0 unit subcut TIDM 04/04/21 02/28/24 unit/mL (3 mL) subcutaneous pen (Novolin N FlexPen) aspirin 325 mg tablet 325 mg PO DAILY 07/27/21 02/28/24 benzonatate 200 mg capsule 200 mg PO Q8H PRN cough 01/08/23 02/28/24 insulin aspart U-100 100 unit/mL 10 unit subcut AC 01/08/23 02/28/24 (3 mL) subcutaneous pen (Novolog FlexPen U-100 Insulin aspart) insulin degludec 100 unit/mL (3 34 unit subcut QAM diabetes 01/08/23 02/28/24 mL) subcutaneous pen (Tresiba FlexTouch U-100 insulin) linaclotide 290 mcg capsule 290 mcg PO DAILY 01/08/23 02/28/24 (Linzess) nitroglycerin 0.4 mg sublingual 0.4 mg sublingual Q5M PRN Chest 01/08/23 02/28/24 tablet (Nitrostat) Pain fluticasone furoate 50 1 inh inhalation DAILY 07/30/23 02/28/24 mcg-vilanterol 25 mcg/dose inhalation powder (Breo Ellipta) clopidogrel 75 mg tablet 75 mg PO DAILY 02/28/24 02/28/24 gabapentin 800 mg tablet 800 mg PO TID 02/28/24 02/28/24 ondansetron 8 mg disintegrating 8 mg PO Q8 PRN N/V 02/28/24 02/28/24 tablet oxycodone 5 mg tablet 5 mg PO .EVERY 4-6 HRS PRN Pain 02/28/24 02/28/24 Previous Rx's Medication Instructions Recorded CPAP Machine #1 ea 04/22/19 CPAP Supplies #1 ea 04/22/19 CPAP Machine #1 ea 08/10/19 albuterol sulfate 90 mcg/actuation 2 puffs inhalation Q6H PRN 08/10/19 aerosol inhaler (Ventolin HFA) shortness of breath or wheezing #8.5 grams cefdinir 300 mg capsule 300 mg PO BID 4 days #8 caps 03/01/24 doxycycline hyclate 100 mg capsule 100 mg PO BID 4 days #8 caps 03/01/24 magnesium oxide 400 mg PO DAILY #14 tabs 03/01/24 Results & Data (ED) Vital Signs Vital Signs - 24 hr 02/28/24 19:09 02/28/24 19:50 02/28/24 20:04 Temperature 36.4 C L Temperature Source Oral Pulse Rate 84 80 Pulse Rate [Apical] 76 Pulse Strength Normal Respiratory Rate 16 17 Respiratory Effort / Characteristics Non-Labored Spontaneous Non-Labored Respiratory Depth Normal Normal Respiratory Pattern Regular Blood Pressure 82/57 L Blood Pressure [Right Arm] 103/49 L Blood Pressure Mean 65 Blood Pressure Mean [Right Arm] 67 Blood Pressure Position Sitting Pulse Oximetry 96 92 Oxygen Delivery Method Room Air Room Air Sepsis Recent Fever Within 48 Hours No Sepsis New/Unexplained Change in Mental Status No Sepsis Action Taken by Nursing No Action Required Laboratory Data 03/01/24 05:33 03/01/24 14:02 Lab Results 02/28/24 02/28/24 02/28/24 Range/Units 19:32 19:56 20:16 WBC (4.8-10.8) K/ul RBC (4.70-6.10) M/uL Hgb (14.0-18.0) g/dl POC Hgb (14.0-18.0) g/dl Hct (42.0-52.0) % POC Hct (42-52) % MCV (80.0-100.0) fL MCH (25.0-34.0) pg MCHC (32.0-36.0) g/dL RDW Std Deviation (36.4-46.3) fL RDW Coeff of Jono (11.5-14.5) % Plt Count (130-400) K/uL MPV (9.4-12.4) fL Immature Gran % (Auto) % Neut % (Auto) % Lymph % (Auto) % Wells % (Auto) % Eos % (Auto) % Baso % (Auto) % Neut # (Auto) (1.40-6.50) K/uL Lymph # (Auto) (1.20-3.40) K/uL Wells # (Auto) (0.11-0.59) K/uL Eos # (Auto) (0.00-0.50) K/uL Baso # (Auto) (0.00-0.20) K/uL Immature Gran # (Auto) (0.01-0.20) K/uL RBC Morphology POC Sodium (135-144) mmol/L Sodium (136-145) mmol/L POC Potassium (3.3-5.0) mmol/L Potassium (3.5-5.1) mmol/L POC Chloride (101-112) mmol/L Chloride (98-107) mmol/L Carbon Dioxide (21-32) mmol/L POC Total CO2 (24-31) mmol/L Anion Gap (3-11) POC Anion Gap (16-25) mmol/L POC BUN (7-18) mg/dl BUN (6-23) mg/dl Creatinine (0.6-1.4) mg/dl POC Creatinine (0.6-1.3) mg/dl Est Cr Clr Drug Dosing eGFR BUN/Creatinine Ratio (10-20) Glucose (70-99(Fasting)) mg/dl POC Glucose 31 L* 139 H (70-99) mg/dl POC Glucose (other) (70-99) mg/dl Lactate 1.0 (0.4-2.0) mmol/L Calcium (8.6-10.3) mg/dl POC Ioniz Calcium Kassie (1.12-1.32) mmol/l Total Bilirubin (0.2-1.0) mg/dl AST (13-39) U/L ALT (7-52) U/L Alkaline Phosphatase (34-104) U/L Troponin I High Sens (0-20) pg/ml Total Protein (6.0-8.3) gm/dl Albumin (3.4-5.0) gm/dl Globulin (2.5-4.0) gm/dl Albumin/Globulin Ratio (0.9-2) Lipase (11-82) U/L Procalcitonin (0-0.5) ng/ml Urine Color Urine Appearance (Clear) Urine pH (4.5-7.5) Ur Specific [place] (1.000-1.030) Urine Protein (Negative) Urine Glucose (UA) (Negative) Urine Ketones (Negative) Urine Blood (Negative) Urine Nitrite (Negative) Urine Bilirubin (Negative) Urine Urobilinogen (Negative) Ur Leukocyte Esterase (Negative) Urine WBC (Auto) (0-5) /hpf Urine RBC (Auto) (0-2) /hpf U Hyaline Cast (Auto) (0-2) /lpf U Epithel Cells (Auto) (0-2) /hpf Urine Bacteria (Auto) (None Seen) 02/28/24 02/28/24 02/28/24 Range/Units 20:23 20:28 20:34 WBC 3.42 L (4.8-10.8) K/ul RBC 2.86 L (4.70-6.10) M/uL Hgb 9.3 L (14.0-18.0) g/dl POC Hgb 9.5 L (14.0-18.0) g/dl Hct 27.3 L (42.0-52.0) % POC Hct 28 L (42-52) % MCV 95.5 (80.0-100.0) fL MCH 32.5 (25.0-34.0) pg MCHC 34.1 (32.0-36.0) g/dL RDW Std Deviation 49.4 H (36.4-46.3) fL RDW Coeff of Jono 14.3 (11.5-14.5) % Plt Count 176 (130-400) K/uL MPV 10.3 (9.4-12.4) fL Immature Gran % (Auto) 0.0 % Neut % (Auto) 30.2 % Lymph % (Auto) 60.5 % Wells % (Auto) 6.4 % Eos % (Auto) 2.0 % Baso % (Auto) 0.9 % Neut # (Auto) 1.03 L (1.40-6.50) K/uL Lymph # (Auto) 2.07 (1.20-3.40) K/uL Wells # (Auto) 0.22 (0.11-0.59) K/uL Eos # (Auto) 0.07 (0.00-0.50) K/uL Baso # (Auto) 0.03 (0.00-0.20) K/uL Immature Gran # (Auto) 0.00 L (0.01-0.20) K/uL RBC Morphology Unremarkable POC Sodium 132 L (135-144) mmol/L Sodium 132 L (136-145) mmol/L POC Potassium 4.2 (3.3-5.0) mmol/L Potassium 4.2 (3.5-5.1) mmol/L POC Chloride 103 (101-112) mmol/L Chloride 106 (98-107) mmol/L Carbon Dioxide 21 (21-32) mmol/L POC Total CO2 19 L (24-31) mmol/L Anion Gap 5 (3-11) POC Anion Gap 16.0 (16-25) mmol/L POC BUN 50 H (7-18) mg/dl BUN 53 H (6-23) mg/dl Creatinine 2.08 H (0.6-1.4) mg/dl POC Creatinine 2.2 H (0.6-1.3) mg/dl Est Cr Clr Drug Dosing Not Reportable eGFR 32.19 BUN/Creatinine Ratio 25.5 H (10-20) Glucose 120 H (70-99(Fasting)) mg/dl POC Glucose (70-99) mg/dl POC Glucose (other) 114 H (70-99) mg/dl Lactate (0.4-2.0) mmol/L Calcium 8.3 L (8.6-10.3) mg/dl POC Ioniz Calcium Kassie 1.26 (1.12-1.32) mmol/l Total Bilirubin 0.2 (0.2-1.0) mg/dl AST 16 (13-39) U/L ALT 13 (7-52) U/L Alkaline Phosphatase 53 (34-104) U/L Troponin I High Sens 17.4 (0-20) pg/ml Total Protein 5.1 L (6.0-8.3) gm/dl Albumin 2.9 L (3.4-5.0) gm/dl Globulin 2.2 L (2.5-4.0) gm/dl Albumin/Globulin Ratio 1.3 (0.9-2) Lipase 10 L (11-82) U/L Procalcitonin 0.09 (0-0.5) ng/ml Urine Color Urine Appearance (Clear) Urine pH (4.5-7.5) Ur Specific [place] (1.000-1.030) Urine Protein (Negative) Urine Glucose (UA) (Negative) Urine Ketones (Negative) Urine Blood (Negative) Urine Nitrite (Negative) Urine Bilirubin (Negative) Urine Urobilinogen (Negative) Ur Leukocyte Esterase (Negative) Urine WBC (Auto) (0-5) /hpf Urine RBC (Auto) (0-2) /hpf U Hyaline Cast (Auto) (0-2) /lpf U Epithel Cells (Auto) (0-2) /hpf Urine Bacteria (Auto) (None Seen) 02/28/24 Range/Units 21:37 WBC (4.8-10.8) K/ul RBC (4.70-6.10) M/uL Hgb (14.0-18.0) g/dl POC Hgb (14.0-18.0) g/dl Hct (42.0-52.0) % POC Hct (42-52) % MCV (80.0-100.0) fL MCH (25.0-34.0) pg MCHC (32.0-36.0) g/dL RDW Std Deviation (36.4-46.3) fL RDW Coeff of Jono (11.5-14.5) % Plt Count (130-400) K/uL MPV (9.4-12.4) fL Immature Gran % (Auto) % Neut % (Auto) % Lymph % (Auto) % Wells % (Auto) % Eos % (Auto) % Baso % (Auto) % Neut # (Auto) (1.40-6.50) K/uL Lymph # (Auto) (1.20-3.40) K/uL Wells # (Auto) (0.11-0.59) K/uL Eos # (Auto) (0.00-0.50) K/uL Baso # (Auto) (0.00-0.20) K/uL Immature Gran # (Auto) (0.01-0.20) K/uL RBC Morphology POC Sodium (135-144) mmol/L Sodium (136-145) mmol/L POC Potassium (3.3-5.0) mmol/L Potassium (3.5-5.1) mmol/L POC Chloride (101-112) mmol/L Chloride (98-107) mmol/L Carbon Dioxide (21-32) mmol/L POC Total CO2 (24-31) mmol/L Anion Gap (3-11) POC Anion Gap (16-25) mmol/L POC BUN (7-18) mg/dl BUN (6-23) mg/dl Creatinine (0.6-1.4) mg/dl POC Creatinine (0.6-1.3) mg/dl Est Cr Clr Drug Dosing eGFR BUN/Creatinine Ratio (10-20) Glucose (70-99(Fasting)) mg/dl POC Glucose (70-99) mg/dl POC Glucose (other) (70-99) mg/dl Lactate (0.4-2.0) mmol/L Calcium (8.6-10.3) mg/dl POC Ioniz Calcium Kassie (1.12-1.32) mmol/l Total Bilirubin (0.2-1.0) mg/dl AST (13-39) U/L ALT (7-52) U/L Alkaline Phosphatase (34-104) U/L Troponin I High Sens (0-20) pg/ml Total Protein (6.0-8.3) gm/dl Albumin (3.4-5.0) gm/dl Globulin (2.5-4.0) gm/dl Albumin/Globulin Ratio (0.9-2) Lipase (11-82) U/L Procalcitonin (0-0.5) ng/ml Urine Color Yellow Urine Appearance Clear (Clear) Urine pH 5.0 (4.5-7.5) Ur Specific [place] 1.016 (1.000-1.030) Urine Protein 1+ H (Negative) Urine Glucose (UA) Negative (Negative) Urine Ketones Trace H (Negative) Urine Blood Negative (Negative) Urine Nitrite Negative (Negative) Urine Bilirubin Negative (Negative) Urine Urobilinogen Negative (Negative) Ur Leukocyte Esterase Negative (Negative) Urine WBC (Auto) 0-5 (0-5) /hpf Urine RBC (Auto) 0-2 (0-2) /hpf U Hyaline Cast (Auto) 0-2 (0-2) /lpf U Epithel Cells (Auto) 0-2 (0-2) /hpf Urine Bacteria (Auto) None Seen (None Seen) Administered Medications Discontinued Medications Acetaminophen (Acetaminophen 325 Mg Tab) 650 mg PO Q4H PRN PRN Reason: Pain or Fever Stop: 03/30/24 02:16 Last Admin: 02/29/24 12:21 Dose: 650 mg Documented By: CHENTE Aspirin (Aspirin 325 Mg Ectab) 325 mg PO DAILY [facility] Stop: 03/31/24 10:44 Last Admin: 03/01/24 11:24 Dose: 325 mg Documented By: LUIS Citalopram Hydrobromide (Citalopram 20 Mg Tab) 60 mg PO QAM [facility] Stop: 03/30/24 08:59 Last Admin: 03/01/24 08:27 Dose: 60 mg Documented By: Admin: 02/29/24 09:27 Dose: 60 mg Documented By: JULIO CESAR Clopidogrel Bisulfate (Clopidogrel Bisulfate 75 Mg Tab) 75 mg PO DAILY [facility] Stop: 03/31/24 10:44 Last Admin: 03/01/24 11:24 Dose: 75 mg Documented By: LUIS Dextrose (Dextrose 50% 50 Ml Syringe) 50 ml IV NOW ONE Stop: 02/28/24 19:43 Last Admin: 02/28/24 19:47 Dose: 50 ml Documented By: WILFRIDO Furosemide (Furosemide Inj 20 Mg/2 Ml Vial) 20 mg IV ONE ONE Stop: 03/01/24 10:49 Last Admin: 03/01/24 11:35 Dose: 20 mg Documented By: LUIS Gabapentin (Gabapentin 800 Mg Tab) 800 mg PO TID [facility] Stop: 03/30/24 08:59 Last Admin: 03/01/24 13:43 Dose: 800 mg Documented By: Admin: 03/01/24 08:27 Dose: 800 mg Documented By: Admin: 02/29/24 21:53 Dose: 800 mg Documented By: Admin: 02/29/24 15:07 Dose: 800 mg Documented By: Admin: 02/29/24 09:25 Dose: 800 mg Documented By: JULIO CESAR Heparin Sodium (Porcine) (Heparin Sod 5,000 Unit/0.5 Ml Vial) 5,000 units SQ Q12 [facility] Stop: 03/30/24 08:59 Last Admin: 03/01/24 08:31 Dose: 5,000 units Documented By: Admin: 02/29/24 21:53 Dose: 5,000 units Documented By: Admin: 02/29/24 09:29 Dose: 5,000 units Documented By: JULIO CESAR Sodium Chloride (Nss) 1,000 mls @ 999 mls/hr IV .Q1H1M ONE Stop: 02/28/24 20:42 Last Infusion: 02/29/24 00:38 Dose: Infused Documented By: designer/writer: 02/28/24 19:43 Dose: 999 mls/hr Documented By: WILFRIDO Ceftriaxone Sodium (Rocephin) 1,000 mg in 50 mls @ 100 mls/hr IV NOW STA Stop: 02/28/24 22:32 Last Infusion: 02/28/24 22:50 Dose: Infused Documented By: Admin: 02/28/24 22:11 Dose: 100 mls/hr Documented By: MED Sodium Chloride (Nss) 1,000 mls @ 999 mls/hr IV .Q1H1M MONI Stop: 02/29/24 00:15 Last Infusion: 02/29/24 03:04 Dose: Infused Documented By: Admin: 02/29/24 00:17 Dose: 999 mls/hr Documented By: MED Albumin Human (Albumin 25%) 25 gm in 100 mls @ 50 mls/hr IV Q2H MONI Stop: 02/29/24 03:29 Last Infusion: 02/29/24 05:01 Dose: Infused Documented By: Admin: 02/29/24 02:36 Dose: 50 mls/hr Documented By: Infusion: 02/29/24 02:22 Dose: Infused Documented By: designer/writer: 02/29/24 00:22 Dose: 50 mls/hr Documented By: MED Ceftriaxone Sodium (Rocephin) 2,000 mg in 50 mls @ 100 mls/hr IV Q24H MONI Stop: 03/10/24 09:59 Last Infusion: 03/01/24 10:40 Dose: Infused Documented By: Admin: 03/01/24 10:03 Dose: 100 mls/hr Documented By: Infusion: 02/29/24 12:18 Dose: Infused Documented By: Admin: 02/29/24 10:54 Dose: 100 mls/hr Documented By: MNE Sodium Chloride (Nss) 500 mls @ 999 mls/hr IV .Q31M ONE Stop: 02/29/24 08:16 Last Infusion: 02/29/24 10:28 Dose: Infused Documented By: Admin: 02/29/24 09:45 Dose: 999 mls/hr Documented By: YRIS Sodium Chloride (Nss) 500 mls @ 125 mls/hr IV .Q4H [facility] Stop: 02/29/24 11:59 Last Infusion: 02/29/24 13:36 Dose: Infused Documented By: Admin: 02/29/24 09:46 Dose: 125 mls/hr Documented By: YRIS Doxycycline Hyclate 100 mg/ (Dextrose) 100 mls @ 50 mls/hr IV Q12H [facility] Stop: 03/05/24 14:29 Last Infusion: 03/01/24 16:10 Dose: Infused Documented By: Admin: 03/01/24 14:09 Dose: 50 mls/hr Documented By: Infusion: 03/01/24 04:51 Dose: Infused Documented By: Admin: 03/01/24 02:36 Dose: 50 mls/hr Documented By: Infusion: 02/29/24 17:11 Dose: Infused Documented By: Admin: 02/29/24 15:07 Dose: 50 mls/hr Documented By: YRIS Magnesium Sulfate/Dextrose (Magnesium Sulfate / D5w) 1 gm in 100 mls @ 50 mls/hr IV ONE ONE Stop: 03/01/24 09:25 Last Infusion: 03/01/24 10:40 Dose: Infused Documented By: Admin: 03/01/24 08:21 Dose: 50 mls/hr Documented By: ARDEN Insulin Aspart (Insulin Aspart Per Unit Charge) 0 units SC ACHS [facility] Stop: 03/30/24 16:29 Last Admin: 03/01/24 16:35 Dose: Not Given Documented By: Admin: 03/01/24 11:35 Dose: 1 units Documented By: LUIS Co-signed By: KIKI Admin: 03/01/24 08:20 Dose: 2 units Documented By: ARDEN Co-signed By: LUIS Admin: 02/29/24 21:53 Dose: 1 units Documented By: KARYN Co-signed By: SAYDA Admin: 02/29/24 18:41 Dose: Not Given Documented By: HOLDEN Co-signed By: ALEXA Insulin Glargine (Lantus Per Unit Charge) [facility] [place]: 03/30/24 08:59 Last Admin: 02/29/24 09:35 Dose: 15 units Documented By: JULIO CESAR Co-signed By: EMEKA Linaclotide (Linaclotide 145 Mcg Capsule) 290 mcg PO DAILY [facility] Stop: 03/31/24 10:59 Last Admin: 03/01/24 11:23 Dose: 290 mcg Documented By: LUIS Magnesium Oxide (Magnesium Oxide 400 Mg Tab) 400 mg PO QAM [facility] Stop: 03/31/24 08:59 Last Admin: 03/01/24 08:31 Dose: 400 mg Documented By: ARDEN Miscellaneous (Breo Ellipta 50-25 Mcg/Dose - Order Awaiting Action) 1 each N/A QS [facility] Stop: 03/30/24 07:59 Last Admin: 03/01/24 16:10 Dose: Not Given Documented By: Admin: 03/01/24 08:22 Dose: Not Given Documented By: Admin: 03/01/24 00:35 Dose: Not Given Documented By: Admin: 02/29/24 18:41 Dose: Not Given Documented By: Admin: 02/29/24 10:55 Dose: Not Given Documented By: YRIS Miscellaneous (Carbohydrates For Hypoglycemia ) 15 - 30 gm PO UD PRN PRN Reason: Hypoglycemia Treatment Stop: 03/30/24 02:44 Last Admin: 02/29/24 12:54 Dose: 30 gm Documented By: YRIS Miscellaneous (Carbohydrates For Hypoglycemia ) 15 - 30 gm PO UD PRN PRN Reason: Hypoglycemia Protocol Stop: 03/30/24 12:26 Last Admin: 03/01/24 01:35 Dose: 30 gm Documented By: KARYN Morphine Sulfate (Morphine Sulfate 4 Mg/Ml 1 Ml Carp\\Vial) 4 mg IV Q3H PRN PRN Reason: Severe Pain (Scale 7, 8, 9,10) Stop: 03/13/24 23:06 Last Admin: 02/29/24 00:20 Dose: 4 mg Documented By: HAILEY Pantoprazole Sodium (Pantoprazole 40 Mg Tab) 40 mg PO BID [facility] Stop: 03/30/24 08:59 Last Admin: 03/01/24 08:27 Dose: 40 mg Documented By: Admin: 02/29/24 21:53 Dose: 40 mg Documented By: Admin: 02/29/24 09:26 Dose: 40 mg Documented By: JULIO CESAR Discharge Plan Visit Data Chief Complaint: Testicular Pain Stated Complaint: RT TESTICLE PAIN, CANCER PAT ED Provider: Lara Dozier Discharge Problem: Acute hypotension, Pain in right testicle, Hypoglycemia Patient Disposition: Admitted As Inpatient Discharge Instructions Interventions: ED Discharge Assessment Last Done: 02/29/24 02:18
[2024-02-28 20:41] LABS: iSTAT Creatinine 2.2 mg/dl (0.6-1.3); iSTAT Hemoglobin 9.5 g/dl (14.0-18.0); iSTAT Ionized Calcium 1.26 mmol/l (1.12-1.32); iSTAT Potassium 4.2 mmol/L (3.3-5.0)
[2024-02-28 20:53] LABS: Hematocrit (blood only) 27.3 % (42.0-52.0); Hemoglobin 9.3 g/dl (14.0-18.0); Mean Corpuscular Hemoglobin 32.5 pg (25.0-34.0); Mean Corpuscular Hgb Conc 34.1 g/dL (32.0-36.0); Mean Corpuscular Volume 95.5 fL (80.0-100.0); Mean Platelet Volume 10.3 fL (9.4-12.4); Platelet Count 176 K/uL (130-400); RDW Coefficient of Variation 14.3 % (11.5-14.5); RDW Standard Deviation 49.4 fL (36.4-46.3); Red Blood Count 2.86 M/uL (4.70-6.10); White Blood Count 3.42 K/ul (4.8-10.8)
[2024-02-28 21:05] LABS: Alanine Aminotransferase 13 U/L (7-52); Albumin Globulin Ratio 1.3 (0.9-2); Albumin Level 2.9 gm/dl (3.4-5.0); Alkaline Phosphatase 53 U/L (34-104); Anion Gap 5 (3-11); Aspartate Aminotransferase 16 U/L (13-39); BUN Creatinine Ratio 25.5 (10-20); Bilirubin,Total 0.2 mg/dl (0.2-1.0); Blood Urea Nitrogen 53 mg/dl (6-23); Calcium 8.3 mg/dl (8.6-10.3); Carbon Dioxide 21 mmol/L (21-32); Chloride 106 mmol/L (98-107); Globulin 2.2 gm/dl (2.5-4.0); Glucose 120 mg/dl (70-99(Fasting)); Lipase 10 U/L (11-82); Potassium 4.2 mmol/L (3.5-5.1); Sodium 132 mmol/L (136-145); Total Protein 5.1 gm/dl (6.0-8.3)
[2024-02-28 21:12] LABS: Troponin I High Sensitivity 17.4 pg/ml (0-20)
[2024-02-28 21:47] LABS: Appearance Urine Clear (Clear); Bacteria Urine Automated None Seen (None Seen); Bilirubin Urine Negative (Negative); Blood Urine Negative (Negative); Cast Urine Automated 0-2 /lpf (0-2); Color Urine Yellow; Epithelial Cell Urine Auto 0-2 /hpf (0-2); Glucose Urine UA Negative (Negative); Ketones Urine Trace (Negative); Leukocyte Esterase Urine Negative (Negative); Nitrite Urine Negative (Negative); Protein Urine 1+ (Negative); RBC Urine Automated 0-2 /hpf (0-2); Specific Gravity Urine 1.016 (1.000-1.030); Urobilinogen Urine Negative (Negative); WBC Urine Automated 0-5 /hpf (0-5)
[2024-02-28] MEDS: cefTRIAXone SODIUM 1,000 MG/50 ML BAG IV STA (22:11)
[2024-02-28 22:41] LABS: Basophils # (auto) 0.03 K/uL (0.00-0.20); Basophils % (auto) 0.9 %; Eosinophils # (auto) 0.07 K/uL (0.00-0.50); Lymphocytes # (auto) 2.07 K/uL (1.20-3.40); Lymphocytes % (auto) 60.5 %; Monocytes # (auto) 0.22 K/uL (0.11-0.59); Monocytes % (auto) 6.4 %; Neutrophils # (auto) 1.03 K/uL (1.40-6.50); Neutrophils % (auto) 30.2 %; RBC Morphology Unremarkable
--- NOTE | 2024-02-28 23:17 | History & Physical Report ---
Date of Service February 28, 2024 Assessment & Plan (1) Testicular pain, right: (2) Metastatic lung cancer (metastasis from lung to other site): (3) Anemia: (4) Stage 3b chronic kidney disease: Plan The patient is a 78-year-old male with past medical history including metastatic lung cancer, gland lesion, stage IIIb CKD, JAY on CPAP, tobacco use, hypertension, PAD, GERD, CAD, COPD, and diabetes mellitus. The patient presents to the emergency department with severe intermittent right testicular pain. He denies any trauma, he denies any urinary frequency, urgency, dysuria or hematuria. He denies fevers or chills. He denies any previous episodes. Patient did have scrotal ultrasound in the ED, which showed no torsion of either testicle. Showed small bilateral hydroceles. Bilateral inguinal hernias were present, with question of bowel within the left hernia. #Intermittent sharp right testicular pain- Of 2 days duration Follow urine culture and sensitivity Ultrasound of scrotum nonrevealing Question orchitis versus epididymitis Ceftriaxone 2 g IV daily Acetaminophen 650 mg by mouth every 6 hours as needed for mild pain or fever Oxycodone 5 mg by mouth every 4 hours as needed for moderate pain Morphine sulfate 4 mg IV every 3 hours as needed for severe pain Order follow-up CT scan demented pelvis without contrast Consult urology Hypotension- NPO Blood pressure 93/44 Status post 2 L normal saline bolus from the ED Question secondary to sepsis associated with process Albumin 50 g IV x 1 Given additional normal saline 1 L fluid bolus Admit to monitored bed Monitor for need for pressors JAY on CPAP- Consult Diabetes mellitus- Reduce Tresiba from 34 to 15 units subcu daily Placed on Accu-Cheks with NovoLog SSI Anemia- Hemoglobin was 14.1, then 12.1, with today 9.3 Hemoccult stools History of CKD stage IIIb, may be an element of anemia of chronic disease History of Present Illness Chief Complaint: The patient presents to the emergency department with his , with complaint of right testicular pain that began about 2 days ago, described as intermittent and sharp. Without any history of trauma, and without change in urinary function. Primary Care Provider: ISSAC Villarreal The patient is a 78-year-old male with past medical history including metastatic lung cancer, gland lesion, stage IIIb CKD, JAY on CPAP, tobacco use, hypertension, PAD, GERD, CAD, COPD, and diabetes mellitus. The patient presents to the emergency department with severe intermittent right testicular pain. He denies any trauma, he denies any urinary frequency, urgency, dysuria or hematuria. He denies fevers or chills. He denies any previous episodes. Patient did have scrotal ultrasound in the ED, which showed no torsion of either testicle. Showed small bilateral hydroceles. Bilateral inguinal hernias were present, with question of bowel within the left hernia. Allergies Allergy/AdvReac Type Severity Reaction Status Date / Time adhesive Allergy Mild Silk/plastic Verified 02/28/24 23:31 adhesive tape (redness, blistering) Sulfa (Sulfonamide AdvReac Intermediate nausea & Verified 02/28/24 23:31 Antibiotics) vomiting Home Medications Medication Instructions Recorded Confirmed Type pantoprazole 40 mg tablet,delayed 40 mg PO BID 12/23/18 02/28/24 History release (Protonix) CPAP Machine #1 ea 04/22/19 02/28/24 Rx CPAP Supplies #1 ea 04/22/19 02/28/24 Rx CPAP Machine #1 ea 08/10/19 02/28/24 Rx albuterol sulfate 90 mcg/actuation 2 puffs inhalation Q6H PRN 08/10/19 02/28/24 Rx aerosol inhaler (Ventolin HFA) shortness of breath or wheezing #8.5 grams rosuvastatin 20 mg tablet (Crestor) 20 mg PO QAM 09/06/20 02/28/24 History citalopram 40 mg tablet (Celexa) 60 mg PO QAM 04/04/21 02/28/24 History insulin NPH isoph U-100 human 100 0 unit subcut TIDM 04/04/21 02/28/24 History unit/mL (3 mL) subcutaneous pen (Novolin N FlexPen) aspirin 325 mg tablet 325 mg PO DAILY 07/27/21 02/28/24 History benzonatate 200 mg capsule 200 mg PO Q8H PRN cough 01/08/23 02/28/24 History insulin aspart U-100 100 unit/mL 10 unit subcut AC 01/08/23 02/28/24 History (3 mL) subcutaneous pen (Novolog FlexPen U-100 Insulin aspart) insulin degludec 100 unit/mL (3 34 unit subcut QAM diabetes 01/08/23 02/28/24 History mL) subcutaneous pen (Tresiba FlexTouch U-100 insulin) linaclotide 290 mcg capsule 290 mcg PO DAILY 01/08/23 02/28/24 History (Linzess) nitroglycerin 0.4 mg sublingual 0.4 mg sublingual Q5M PRN Chest 01/08/23 02/28/24 History tablet (Nitrostat) Pain lisinopril 5 mg tablet 5 mg PO DAILY #90 tabs 03/19/23 02/28/24 Rx fluticasone furoate 50 1 inh inhalation DAILY 07/30/23 02/28/24 History mcg-vilanterol 25 mcg/dose inhalation powder (Breo Ellipta) clopidogrel 75 mg tablet 75 mg PO DAILY 02/28/24 02/28/24 History gabapentin 800 mg tablet 800 mg PO TID 02/28/24 02/28/24 History ondansetron 8 mg disintegrating 8 mg PO Q8 PRN N/V 02/28/24 02/28/24 History tablet oxycodone 5 mg tablet 5 mg PO .EVERY 4-6 HRS PRN Pain 02/28/24 02/28/24 History Past Med/Surg History Problem List (Updated 02/29/24 @ 04:15 by Isidoro Adler MD) Testicular pain, right Metastatic lung cancer (metastasis from lung to other site) Lesion of adrenal gland Anemia Vitamin D deficiency Stage 3b chronic kidney disease Constipation JAY on CPAP Neurogenic claudication due to lumbar spinal stenosis Tobacco use Hypomagnesemia Elevated troponin Hypervolemia LUQ abdominal pain (Acute) Hypoxia (Acute) Leukocytosis (Acute) Pneumonia (Acute) Vomiting (Acute) Hypertension (Acute) Acute kidney injury (Acute) Acidosis, lactic (Acute) Acute hypotension (Acute) Acute dehydration (Acute) Solitary pulmonary nodule (Chronic) Depression Chest pain Lung cancer Stroke Immediately after spinal fusion 04/2019---went into kidney failure at the same time > only deficit is sometimes he "dribbles out of the left side of his mouth" Peripheral arterial occlusive disease "total occlusion of the SFA and the left mid thigh area with reconstitution with collaterals and monophasic flow bilateral below knee area" per cardiology office visit note 03/2019 Hyperlipidemia GERD (gastroesophageal reflux disease) controlled DM type 2 (diabetes mellitus, type 2) CAD (coronary artery disease) angioplasty/KARRIE to pRCA (2014) Synergy stent (11/03/2020) after failed stress test Chronic obstructive pulmonary disease CKD (chronic kidney disease), stage III Pulmonary nodule 1 cm or greater in diameter (Chronic 08/25/20) Medical History (Updated 02/29/24 @ 04:15 by Isidoro Adler MD) Acute and chronic respiratory failure with hypercapnia Hyperkalemia Urinary retention Hypoxia Somnolence Arthritis Urinary problem urinary hesitancy Spinal stenosis Diabetes IDDM Sleep apnea awaiting CPAP Hypertension Carotid arterial disease "no ICA stenosis.. severe left ECA stenosis" per cardiology office visit note 03/2019 > follows with Dr. Reyes in [place] Interstitial lung disease Surgical History (Updated 02/23/21 @ 09:17 by Caridad Servin, RN) History of elbow surgery right History of melanoma excision History of lumbar spinal fusion L5-S1 decompression/fusion (09/17/19): Grade view 2, Glidescope#3, ETT 8.0 at [facility] Status post lumbar surgery History of arthroscopy of right shoulder History of colonoscopy History of tonsillectomy History of hernia surgery X2 History of thumb surgery R/L History of repair of left rotator cuff History of cardiac cath stent x1 (2014) Synergy stent x1 (11/03/2020) Family History (Updated 04/04/21 @ 08:46 by Maryanne Morfin RN) Mother Diabetes Heart disease Cancer Lung cancer Father Cancer Oral cancer Other No family history of adverse response to anesthesia Social History Smoking Status: Current every day smoker Tobacco Type: Cigarettes Cigarettes Per Day: 2; Second Hand Exposure: No; Do You Dip or Chew Tobacco: No; Hx Alcohol Use: Yes Alcohol type: beer and hard liquor Hx Substance Use: No Preferred Language: [place] Communication Ability: Effective Visual Impairment: No Limitations Hearing Ability: Normal 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 Beliefs That Will Affect Care: None Current Living Situation: Spouse current occupational status: retired Feels Safe at Home: Yes Childhood Exposure to Second-Hand Smoke: Yes Diet Comment: food choices with less carbs, uses sugar substitute Assistive Devices: Glasses Review of Systems Review of Systems: The patient denies chest pain, palpitations, shortness of breath, dyspnea on exertion, cough, lower extremity swelling, sore throat, fevers, chills, sweats, weight change, fatigue, nausea, vomiting, diarrhea , constipation, blood in urine or stool, dysuria, urinary frequency or urgency, lightheadedness, dizziness, headache, memory loss, loss of consciousness, rash, abnormal bruising or bleeding, imbalance, focal or generalized weakness, numbness or tingling in arms or legs, generalized arthralgias or myalgias, back or neck pain, or night sweats. The review of systems is otherwise negative other than for that already noted above, and at least 10 systems have been reviewed. Physical Exam Physical Exam: The patient is awake, alert and oriented 3, well developed and well nourished, normocephalic and atraumatic, lying in bed and in no acute distress, except for extreme intermittent testicular pain HEENT--PERRL, EOMI, mucous membranes and oropharynx mildly dry. Neck--supple. No JVD. No bruits. Thyroid normal, trachea midline, no adenopathy. Heart--normal S1 and S2. No murmurs, rubs or gallops. Lungs--clear bilaterally, no respiratory distress, no accessory muscle use. Abdomen--normal bowel sounds and soft. Nontender. Nondistended, no hernias or masses, no organomegaly. Extremities--no cyanosis or clubbing. No edema. There are good distal pulses b/l. Dermatologic--normal skin turgor, normal color, no abnormal lymph nodes, no rash. Neurologic--cranial nerves II through XII grossly intact. Rheumatologic--normal range of motion. Psychiatric--normal affect. Results & Data Results & Data Vital Signs (Past 12 Hours) Vital Signs Temp Pulse Pulse Resp BP BP Pulse Ox 02/28/24 22:00 78 19 105/66 95 02/28/24 20:04 76 17 103/49 L 92 02/28/24 19:50 80 02/28/24 19:09 36.4 C L 84 16 82/57 L 96 O2 Del Method 02/28/24 22:00 Room Air 02/28/24 20:04 Room Air 02/28/24 19:50 02/28/24 19:09 Room Air Laboratory Results Laboratory Results WBC 3.92 K/ul (4.8-10.8) L 02/29/24 02:34 RBC 3.05 M/uL (4.70-6.10) L 02/29/24 02:34 Hgb 9.7 g/dl (14.0-18.0) L 02/29/24 02:34 POC Hgb 9.5 g/dl (14.0-18.0) L 02/28/24 20:28 Hct 29.1 % (42.0-52.0) L 02/29/24 02:34 POC Hct 28 % (42-52) L 02/28/24 20:28 MCV 95.4 fL (80.0-100.0) 02/29/24 02:34 MCH 31.8 pg (25.0-34.0) 02/29/24 02:34 MCHC 33.3 g/dL (32.0-36.0) 02/29/24 02:34 RDW Std Deviation 49.1 fL (36.4-46.3) H 02/29/24 02:34 RDW Coeff of Jono 14.3 % (11.5-14.5) 02/29/24 02:34 Plt Count 179 K/uL (130-400) 02/29/24 02:34 MPV 10.4 fL (9.4-12.4) 02/29/24 02:34 Immature Gran % (Auto) 0.3 % 02/29/24 02:34 Neut % (Auto) 29.9 % 02/29/24 02:34 Lymph % (Auto) 60.2 % 02/29/24 02:34 [place] % (Auto) 7.1 % 02/29/24 02:34 Eos % (Auto) 2.0 % 02/29/24 02:34 Baso % (Auto) 0.5 % 02/29/24 02:34 Neut # (Auto) 1.17 K/uL (1.40-6.50) L 02/29/24 02:34 Lymph # (Auto) 2.36 K/uL (1.20-3.40) 02/29/24 02:34 [place] # (Auto) 0.28 K/uL (0.11-0.59) 02/29/24 02:34 Eos # (Auto) 0.08 K/uL (0.00-0.50) 02/29/24 02:34 Baso # (Auto) 0.02 K/uL (0.00-0.20) 02/29/24 02:34 Immature Gran # (Auto) 0.01 K/uL (0.01-0.20) 02/29/24 02:34 RBC Morphology Unremarkable 02/28/24 20:23 POC Sodium 132 mmol/L (135-144) L 02/28/24 20:28 Sodium 134 mmol/L (136-145) L 02/29/24 02:34 POC Potassium 4.2 mmol/L (3.3-5.0) 02/28/24 20:28 Potassium 5.0 mmol/L (3.5-5.1) 02/29/24 02:34 POC Chloride 103 mmol/L (101-112) 02/28/24 20:28 Chloride 107 mmol/L (98-107) 02/29/24 02:34 Carbon Dioxide 21 mmol/L (21-32) 02/29/24 02:34 POC Total CO2 19 mmol/L (24-31) L 02/28/24 20:28 Anion Gap 6 (3-11) 02/29/24 02:34 POC Anion Gap 16.0 mmol/L (16-25) 02/28/24 20:28 POC BUN 50 mg/dl (7-18) H 02/28/24 20:28 BUN 55 mg/dl (6-23) H 02/29/24 02:34 Creatinine 1.95 mg/dl (0.6-1.4) H 02/29/24 02:34 POC Creatinine 2.2 mg/dl (0.6-1.3) H 02/28/24 20:28 Est Cr Clr Drug Dosing 36.5 ml/min 02/29/24 02:34 eGFR 34.78 02/29/24 02:34 BUN/Creatinine Ratio 28.2 (10-20) H 02/29/24 02:34 Glucose 77 mg/dl (70-99(Fasting)) 02/29/24 02:34 POC Glucose 139 mg/dl (70-99) H 02/28/24 20:16 POC Glucose (other) 114 mg/dl (70-99) H 02/28/24 20:28 Lactate 1.0 mmol/L (0.4-2.0) 02/28/24 19:56 Calcium 9.0 mg/dl (8.6-10.3) 02/29/24 02:34 POC Ioniz Calcium Kass[place] 1.26 mmol/l (1.12-1.32) 02/28/24 20:28 Phosphorus 3.5 mg/dl (2.5-4.9) 02/29/24 02:34 Magnesium 1.7 mg/dl (1.7-2.4) 02/29/24 02:34 Total Bilirubin 0.2 mg/dl (0.2-1.0) 02/28/24 20:23 AST 16 U/L (13-39) 02/28/24 20:23 ALT 13 U/L (7-52) 02/28/24 20:23 Alkaline Phosphatase 53 U/L (34-104) 02/28/24 20:23 Troponin I High Sens 17.4 pg/ml (0-20) 02/28/24 20:23 Total Protein 5.1 gm/dl (6.0-8.3) L 02/28/24 20:23 Albumin 3.7 gm/dl (3.4-5.0) 02/29/24 02:34 Globulin 2.2 gm/dl (2.5-4.0) L 02/28/24 20:23 Albumin/Globulin Ratio 1.3 (0.9-2) 02/28/24 20:23 Lipase 10 U/L (11-82) L 02/28/24 20:23 Urine Color Yellow 02/28/24 21:37 Urine Appearance Clear (Clear) 02/28/24 21:37 Urine pH 5.0 (4.5-7.5) 02/28/24 21:37 Ur Specific [place] 1.016 (1.000-1.030) 02/28/24 21:37 Urine Protein 1+ (Negative) H 02/28/24 21:37 Urine Glucose (UA) Negative (Negative) 02/28/24 21:37 Urine Ketones Trace (Negative) H 02/28/24 21:37 Urine Blood Negative (Negative) 02/28/24 21:37 Urine Nitrite Negative (Negative) 02/28/24 21:37 Urine Bilirubin Negative (Negative) 02/28/24 21:37 Urine Urobilinogen Negative (Negative) 02/28/24 21:37 Ur Leukocyte Esterase Negative (Negative) 02/28/24 21:37 Urine WBC (Auto) 0-5 /hpf (0-5) 02/28/24 21:37 Urine RBC (Auto) 0-2 /hpf (0-2) 02/28/24 21:37 U Hyaline Cast (Auto) 0-2 /lpf (0-2) 02/28/24 21:37 U Epithel Cells (Auto) 0-2 /hpf (0-2) 02/28/24 21:37 Urine Bacteria (Auto) None Seen (None Seen) 02/28/24 21:37 Impressions Scrotum Ultrasound 02/28/24 19:42 Exam(s): US SCROTAL EXAM: US Scrotum CLINICAL HISTORY: Concern for torsion. TECHNIQUE: Real-time ultrasound of the scrotum with color Doppler and image documentation. COMPARISON: CT abdomen and pelvis 05/03/2022. FINDINGS: Right testicle: The right testicle measures 4.0 x 1.9 x 2.7 cm. No torsion. Left testicle: The left testicle measures 2.8 x 1.7 x 2.2 cm. No torsion. Epididymides: Unremarkable. Scrotum: Small bilateral hydroceles. Inguinal canal: Bilateral inguinal hernias are present. IMPRESSION: 1. No torsion of either testicle. 2. Small bilateral hydroceles. 3. Bilateral inguinal hernias are present. Question bowel within the left hernia. Clinical correlation is recommended. Electronically signed by: Lizzie Angel MD 02/29/24 00:53 AM Chest X-Ray 02/28/24 19:43 Exam(s): XR CXR 1 VIEW EXAM: XR Chest, 1 View CLINICAL HISTORY: Pneumonia. TECHNIQUE: Frontal view of the chest. COMPARISON: Chest radiograph 01/22/2024 FINDINGS: Lungs: Left lower lobe pneumonia is not significant change. Additional subtle airspace opacities of the right lung have increased. Pleural space: Small left pleural effusion is stable. No pneumothorax. Heart: Unremarkable. No cardiomegaly. Mediastinum: Unremarkable. Normal mediastinal contour. Bones/joints: There are degenerative changes of the spine. No acute fracture. IMPRESSION: 1. Left lower lobe pneumonia is not significant changed. Recommend further evaluation with CT of the chest. 2. Additional subtle airspace opacities of the right lung have increased. 3. Small left pleural effusion is stable. Electronically signed by: Lizzie Angel MD 02/29/24 00:17 AM Code Status & VTE Plan Code Status Full code VTE Prophylaxis Plan VTE Prophylaxis will be ordered: Yes PG Care Time/CCT Total # of Minutes Spent Total Time Spent with Patient: Total time spent is greater than 50% in coordination of care (as documented) at patient's floor/unit and/or counseling patient: Coding Level of Care Code 66157 INT INP/OBS CARE 3/75MIN Diagnoses Testicular pain, right N50.811 Metastatic lung cancer (metastasis from lung to other site) C34.90 Anemia D64.9 Stage 3b chronic kidney disease N18.32
[2024-02-29] MEDS: SODIUM CHLORIDE 0.9% 1,000 ML IV SCH (00:17)
--- NOTE | 2024-02-29 00:18 | XRay Report ---
Exam(s): XR CXR 1 VIEW EXAM: XR Chest, 1 View CLINICAL HISTORY: Pneumonia. TECHNIQUE: Frontal view of the chest. COMPARISON: Chest radiograph 01/22/2024 FINDINGS: Lungs: Left lower lobe pneumonia is not significant change. Additional subtle airspace opacities of the right lung have increased. Pleural space: Small left pleural effusion is stable. No pneumothorax. Heart: Unremarkable. No cardiomegaly. Mediastinum: Unremarkable. Normal mediastinal contour. Bones/joints: There are degenerative changes of the spine. No acute fracture. IMPRESSION: 1. Left lower lobe pneumonia is not significant changed. Recommend further evaluation with CT of the chest. 2. Additional subtle airspace opacities of the right lung have increased. 3. Small left pleural effusion is stable. Electronically signed by: Lizzie Angel MD 02/29/24 00:17 AM
[2024-02-29] MEDS: MoRPHine SULFATE 4 MG/ML 1 ML CARP\\VIAL IV PRN (00:20)
[2024-02-29] MEDS: ALBUMIN 25% 25 GM/100 ML VIAL IV SCH (00:22)
--- NOTE | 2024-02-29 00:54 | Ultrasound Report ---
Exam(s): US SCROTAL EXAM: US Scrotum CLINICAL HISTORY: Concern for torsion. TECHNIQUE: Real-time ultrasound of the scrotum with color Doppler and image documentation. COMPARISON: CT abdomen and pelvis 05/03/2022. FINDINGS: Right testicle: The right testicle measures 4.0 x 1.9 x 2.7 cm. No torsion. Left testicle: The left testicle measures 2.8 x 1.7 x 2.2 cm. No torsion. Epididymides: Unremarkable. Scrotum: Small bilateral hydroceles. Inguinal canal: Bilateral inguinal hernias are present. IMPRESSION: 1. No torsion of either testicle. 2. Small bilateral hydroceles. 3. Bilateral inguinal hernias are present. Question bowel within the left hernia. Clinical correlation is recommended. Electronically signed by: Lizzie Angel MD 02/29/24 00:53 AM
[2024-02-29] MEDS ORDERED: ALBUTEROL HFA 8 GM INHALER INH PRN (02:17)
[2024-02-29] MEDS ORDERED: oxyCODONE HCL IR 5 MG TAB (IMMEDIATE RELEASE) PO PRN (02:17)
[2024-02-29] MEDS ORDERED: ONDANSETRON INJ 2 MG/ML 2 ML VIAL IV PRN (02:17)
[2024-02-29] MEDS ORDERED: GLUCAGON FOR INJ 1 MG VIAL SQ PRN ×2 (02:45→12:27)
[2024-02-29] MEDS ORDERED: GLUCOSE 40% GEL 15 GM TUBE PO PRN ×2 (02:45→12:27)
[2024-02-29] MEDS ORDERED: GLUCOSE 10 TAB/TUBE PO PRN ×2 (02:45→12:27)
[2024-02-29] MEDS ORDERED: DEXTROSE 50% 50 ML SYRINGE IV PRN ×2 (02:45→12:27)
[2024-02-29 03:13] LABS: Hematocrit (blood only) 29.1 % (42.0-52.0); Hemoglobin 9.7 g/dl (14.0-18.0); Mean Corpuscular Hemoglobin 31.8 pg (25.0-34.0); Mean Corpuscular Hgb Conc 33.3 g/dL (32.0-36.0); Mean Corpuscular Volume 95.4 fL (80.0-100.0); Mean Platelet Volume 10.4 fL (9.4-12.4); Platelet Count 179 K/uL (130-400); RDW Coefficient of Variation 14.3 % (11.5-14.5); RDW Standard Deviation 49.1 fL (36.4-46.3); Red Blood Count 3.05 M/uL (4.70-6.10); White Blood Count 3.92 K/ul (4.8-10.8)
[2024-02-29 03:28] LABS: Albumin Level 3.7 gm/dl (3.4-5.0); BUN Creatinine Ratio 28.2 (10-20); Creatinine Clr Calc Pharmacy 36.5 ml/min; Magnesium 1.7 mg/dl (1.7-2.4); Phosphorus 3.5 mg/dl (2.5-4.9)
[2024-02-29 03:59] LABS: Basophils # (auto) 0.02 K/uL (0.00-0.20); Basophils % (auto) 0.5 %; Eosinophils # (auto) 0.08 K/uL (0.00-0.50); Immature Granulocytes # (auto) 0.01 K/uL (0.01-0.20); Immature Granulocytes % (auto) 0.3 %; Lymphocytes # (auto) 2.36 K/uL (1.20-3.40); Lymphocytes % (auto) 60.2 %; Monocytes # (auto) 0.28 K/uL (0.11-0.59); Monocytes % (auto) 7.1 %; Neutrophils # (auto) 1.17 K/uL (1.40-6.50); Neutrophils % (auto) 29.9 %
--- NOTE | 2024-02-29 07:15 | CT Scan Report ---
EXAM: CT abd pelvis wo con CLINICAL HISTORY: pelvic and testicular pain, hypotension TECHNIQUE: Contiguous axial images were obtained from the level of the lower neck to the pubic symphysis without intravenous or oral contrast. Coronal and sagittal reformatted images were generated and reviewed to assist with anatomic localization and lesion detection. CT scan was performed according to ALARA (as low as reasonable achievable). COMPARISON: None. FINDINGS: CHEST: Ground-glass opacities, interstitial septal thickening and mosaic attenuation pattern noted in visualized bilateral lung parenchyma. Left pleural collection measuring up to 1.3 cm in thickness, with associated pleural thickening and few subtle pleural calcifications. ABDOMEN/PELVIS: Evaluation of the abdominal and pelvic visceral organs is limited without intravenous contrast. The unenhanced liver, spleen, pancreas, and adrenal glands are grossly unremarkable. Tiny hyperdense calculi of size 1-2 mm noted in the gallbladder lumen. The kidneys demonstrate tiny renal concretions of average size 2-3 mm at upper calyces bilaterally. No hydronephrosis or perinephric stranding. Extensive atherocalcific plaques noted in the abdominal aorta. Bilateral fat-containing inguinal hernias noted, more prominent on the right side. Redundant sigmoid colon with few small mural outpouchings, without adjacent fluid or fat stranding. Status post posterior fixation of lower lumbar vertebrae, with sclerosis and interconnecting rods in situ. Degenerative changes noted in the visualized spine. IMPRESSION: 1. Ground-glass opacities and interstitial changes in visualized lung bases with left pleural collection - dedicated chest imaging recommended for further evaluation. 2. Bilateral fat-containing inguinal hernias, larger on right side. 3. Uncomplicated sigmoid diverticulosis. 4. Tiny bilateral renal and gallbladder calculi as described. Electronically signed by Jorge Iyer 02-29-2024 07:15 AM
--- NOTE | 2024-02-29 07:46 | Hospitalist Progress Note ---
Date of Service February 29, 2024 Assessment & Plan (1) Testicular pain, right: (2) Metastatic lung cancer (metastasis from lung to other site): (3) Anemia: (4) Stage 3b chronic kidney disease: Plan The patient is a 78-year-old male with past medical history including metastatic lung cancer, gland lesion, stage IIIb CKD, JAY on CPAP, tobacco use, hypertension, PAD, GERD, CAD, COPD, and diabetes mellitus. The patient presents to the emergency department with severe intermittent right testicular pain. He denies any trauma, he denies any urinary frequency, urgency, dysuria or hematuria. He denies fevers or chills. He denies any previous episodes. Patient did have scrotal ultrasound in the ED, which showed no torsion of either testicle. Showed small bilateral hydroceles. Bilateral inguinal hernias were present, with question of bowel within the left hernia. Severe intermittent sharp right testicular pain, suspect inguinal hernia 2 days of symptoms. Patient was started on Rocephin for possible epididymitis/orchitis. UA is not infected appearing, labs do not appear infected. Patient is focally tender at the right internal inguinal ring. Suspect due to hernia rather than infectious etiology. Antibiotics discontinued for this, however with concerns for pneumonia as otherwise noted Tylenol, oxycodone, breakthrough morphine for pain control Urology consulted on admit for eval of ?epididymitis/oorchitis on admit eval. clinical findings of note on and imaging or labs. Suspected to have referred pain, no role for urologic intervention. Not suspected to have infection. Was recommended for anti-inflammatory/pain control and evaluation of alternative etiologies On exam does have tenderness on palpation of internal inguinal ring. CT does show a right fat-containing hernia. Question of bowel contained in the left hernia however pain is not present on the side. Do not see evidence of strangulation. Lactate is normal. Pain is intermittent. Patient is not obstructed/angulated and is on DAPT. Recommended for outpatient surgical follow-up.,continue multimodal pain control. NSAIDs not recommended due to renal dysfunction. Will continue Tylenol and breakthrough hydromorphone Hypotension,? Sepsis Patient with hypotension and concern for infection on admission. Does not have a white count S/p 2 L of NSS in the ER +1 additional liter on admission. This satisfies his 2820 cc recommendations for sepsis BP normalized although again hypotensive in the afternoon. No hypoxia. Additional liter ordered Low suspicion for infection. Groundglass opacity seen in inferior casey of A/P, CTchest ordered which does not show any lobar pneumonia but does show a progressive left effusion and subpleural opacity 1/4 patient has developed sinus congestion, rhinorrhea, and dry nonproductive cough. Bio fire ordered. He is hypoxic 89% in the ER, does not have a home oxygen requirement. BioFire is negative. Will include azithromycin for atypical coverage given new cough, hypoxia, and hypotension. Sputum culture pending. Pro-Thang is detectable but normal. Stage IV non-small cell lung adenocarcinoma Carbo Taxol/Keytruda treatment started 01/22/2024, recommended for consolidation radiation therapy to adrenal gland Left adrenal gland FNA showed metastatic NSCLC Patient reports he follows with Dr. Choudhury, no longer follows with pulmonology. Previously did follow for interstitial lung disease of unclear etiology but suspected tobacco related with JAY overlap, patient had quit tobacco products. No acute change in management but will need repeat imaging and follow-up for the enlarging subpleural opacity JAY Continue CPAP DM2 Tresiba home dose reduced to 15 units daily Continue SSI Goal BSG [id number] Patient was hypoglycemic prior to getting his meal tray. Did improve glucose tabs. Carb ratio temporarily held and correction factor adjusted. Pharmacy glycemic consult placed for monitoring and adjustments Anemia Gradual downtrend from 14, 12, 9.3 on admission Denies GI bleeding Hemoccult stools Hemoglobin uptrending /, 9.7. He is not microcytic DDx includes AOCD/CKD. Iron studies, B12 ordered History of NSTEMI without history of CHF Appears near euvolemic at bedside assessment Denies chest pain at any point Continue aspirin/Plavix. Patient reports that he does not get orthopnea and has not had heart failure need Lasix before. 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 Reports he has developed a cough nonproductive and a runny nose since being in the hospital. Continues to have intermittent but not constant right groin pain which is new in the last few days. He has not had this pain before. Denies nausea/vomiting/abdominal pain. Pain is a 5/10 when it occurs is sharp and last for couple of seconds. No fevers or chills. Denies chest pain chest pressure Physical Exam Physical Exam: General: A&Ox3. NAD. Cooperative. HEENT: Atraumatic, normocephalic. Hearing grossly intact Pulm: Diminished, crackles in the bases. Symmetrical chest rise. No increased work of breathing. No respiratory distress. Cardiac: RRR, -mrg. Radial pulses intact and symmetrical. Abdominal: Nontender, nondistended, soft. BS present. : No scrotal erythema/edema. Palpation of right inguinal ring with fullness and produces pain. No left-sided scrotal tenderness. Results & Data Results & Data Vital Signs (Past 12 Hours) Vital Signs Pulse Pulse Resp BP Pulse Ox Pulse Ox O2 Del Method 02/29/24 07:19 80 20 98/41 L 95 Room Air 02/29/24 06:59 78 02/29/24 05:00 77 16 115/61 96 CPAP 02/29/24 03:00 96 02/29/24 02:46 76 18 93/44 L 98 CPAP 02/29/24 02:21 82 23 91 02/29/24 01:15 85 16 98/48 L 94 Nasal Cannula 02/29/24 00:00 87 15 121/57 L 93 Nasal Cannula 02/28/24 23:45 86 02/28/24 22:00 78 19 105/66 95 Room Air 02/28/24 20:04 76 17 103/49 L 92 Room Air 02/28/24 19:50 80 O2 Del Method O2 Flow Rate 02/29/24 07:19 02/29/24 06:59 02/29/24 05:00 02/29/24 03:00 CPAP 02/29/24 02:46 02/29/24 02:21 2 02/29/24 01:15 2 02/29/24 00:00 2 02/28/24 23:45 02/28/24 22:00 02/28/24 20:04 02/28/24 19:50 PG Care Time/CCT Total # of Minutes Spent Total Time Spent with Patient: Total time spent is greater than 50% in coordination of care (as documented) at patient's floor/unit and/or counseling patient: Coding Level of Care Code 27212 SUB INP/OBS CARE 3/50MIN Diagnoses Testicular pain, right N50.811 Metastatic lung cancer (metastasis from lung to other site) C34.90 Anemia D64.9 Stage 3b chronic kidney disease N18.32
--- NOTE | 2024-02-29 08:54 | CT Scan Report ---
CT OF THE CHEST WITHOUT IV CONTRAST CLINICAL HISTORY: Sepsis, ?PNA. Metastatic lung cancer. COMPARISON STUDY: Chest CT May 07, 2022. Chest radiograph February 28, 2024. PET/CT December 14, [address] DOSE: 764.77 mGy.cm TECHNIQUE: Axial images of the chest were obtained without IV contrast. Images were reviewed in the axial, sagittal, and coronal planes. IV contrast was not administered for this examination. Automat ed exposure control was utilized for the study. A dose lowering technique was utilized adhering to t he principles of ALARA. FINDINGS: Mildly enlarged mediastinal lymph nodes are similar to PET/CT of December 14, 2023. There a re several calcified mediastinal and right hilar lymph nodes. There is no pericardial effusion. A sma ll left pleural effusion has slightly increased since PET/CT of December 14, 2023. Bandlike opacity wi thin the left upper lobe has slightly increased since prior PET/CT. Left lower lobe subpleural opacit y has slightly increased since prior PET/CT. There is underlying emphysema. Scattered groundglass opa cities are similar in appearance to prior PET/CT. There is no definite evidence for pneumonia. Multip le healing left-sided rib fractures are again noted. A 1.3 cm left adrenal nodule has decreased in si ze since PET/CT of December 14, 2023 when it measured 1.8 cm. Small gallstones within the gallbladder are noted. IMPRESSION: 1. No consolidation to suggest pneumonia. 2. Band-like left upper lobe opacity and subpleural left lower lobe opacity. These have mildly progre ssed since PET/CT of December 14, 2023. The findings may reflect posttreatment change. However, contin ued imaging follow-up is recommended to exclude the possibility of recurrent tumor. Slight increase i n size of a small left pleural effusion. 3. No change in mildly enlarged mediastinal lymph nodes. A benign etiology is favored however these a re indeterminate and can be assessed on follow-up studies. 4. Decrease in size of a FDG avid left adrenal nodule since prior PET/CT. This suggests a treatment r esponse. ACT 112: Negative or not required by law. Electronically signed by: Aubrey Carballo M.D. 02/29/2024 8:52 AM
[2024-02-29] MEDS: GABAPENTIN 800 MG TAB PO SCH (09:25)
[2024-02-29] MEDS: PANTOprazole 40 MG TAB PO SCH (09:26)
[2024-02-29] MEDS: CITALOPRAM 20 MG TAB PO SCH (09:27)
[2024-02-29] MEDS: HEPARIN SOD 5,000 UNIT/0.5 ML VIAL SQ SCH (09:29)
[2024-02-29] MEDS: LANTUS PER UNIT CHARGE SC SCH (09:35)
[2024-02-29] MEDS: SODIUM CHLORIDE 0.9% 500 ML IV ONE (09:45)
[2024-02-29] MEDS: SODIUM CHLORIDE 0.9% 500 ML IV SCH (09:46)
--- NOTE | 2024-02-29 10:32 | Urology Consultation ---
Date of Consultation February 29, 2024 Assessment & Plan (1) Testicular pain, right: 78-year-old gentleman with 2 days of right testicular pain and no clinical findings of significant note or imaging findings of significant note. He has no lab abnormalities. He had a prior spine surgery and he may have a right inguinal hernia Overall, I think this is referred pain to his testis with no primary testicular cause There is certainly no intervention indicated, no surgical role, uncertain is even an antibiotic role I would like to offer him anti-inflammatories and pain control and continue exploration of other causes of his discomfort Please call if other issues arise during this hospitalization as I do not see any role for involvement currently History of Present Illness Attending Physician: Moises Nicole MD History of Present Illness Consulted secondary to right testicular pain He reports that it has been relatively significant has been present for 2 days He has noted no visible changes No fevers, no chills, no trauma to the testis After arrival in the emergency room he has had numerous imaging studies including a CT abdomen pelvis which I personally reviewed He also had a testicular ultrasound which I personally reviewed I really do not appreciate any pathology on any of the studies He has no hydronephrosis or distal ureteral calculus to explain the testicular pain His ultrasound is stone cold normal without any issues regarding blood flow, no masses, no evidence of epididymitis or hyperemia of the testis itself He has had a prior lumbosacral spine surgery and I discussed that there is a possibility that this could be referred pain from a neuropathic cause He also appears to have some fat adjacent to his right spermatic cord and inguinal region so a hernia could also present with some impingement of the nerve and discomfort He does not seem to exhibit other signs of an incarcerated hernia and is difficult to appreciate the hernia on exam while he is supine Allergies Allergy/AdvReac Type Severity Reaction Status Date / Time adhesive Allergy Mild Silk/plastic Verified 02/28/24 23:31 adhesive tape (redness, blistering) Sulfa (Sulfonamide AdvReac Intermediate nausea & Verified 02/28/24 23:31 Antibiotics) vomiting Home Medications Medication Instructions Recorded Confirmed Type pantoprazole 40 mg tablet,delayed 40 mg PO BID 12/23/18 02/28/24 History release (Protonix) CPAP Machine #1 ea 04/22/19 02/28/24 Rx CPAP Supplies #1 ea 04/22/19 02/28/24 Rx CPAP Machine #1 ea 08/10/19 02/28/24 Rx albuterol sulfate 90 mcg/actuation 2 puffs inhalation Q6H PRN 08/10/19 02/28/24 Rx aerosol inhaler (Ventolin HFA) shortness of breath or wheezing #8.5 grams rosuvastatin 20 mg tablet (Crestor) 20 mg PO QAM 09/06/20 02/28/24 History citalopram 40 mg tablet (Celexa) 60 mg PO QAM 04/04/21 02/28/24 History insulin NPH isoph U-100 human 100 0 unit subcut TIDM 04/04/21 02/28/24 History unit/mL (3 mL) subcutaneous pen (Novolin N FlexPen) aspirin 325 mg tablet 325 mg PO DAILY 07/27/21 02/28/24 History benzonatate 200 mg capsule 200 mg PO Q8H PRN cough 01/08/23 02/28/24 History insulin aspart U-100 100 unit/mL 10 unit subcut AC 01/08/23 02/28/24 History (3 mL) subcutaneous pen (Novolog FlexPen U-100 Insulin aspart) insulin degludec 100 unit/mL (3 34 unit subcut QAM diabetes 01/08/23 02/28/24 History mL) subcutaneous pen (Tresiba FlexTouch U-100 insulin) linaclotide 290 mcg capsule 290 mcg PO DAILY 01/08/23 02/28/24 History (Linzess) nitroglycerin 0.4 mg sublingual 0.4 mg sublingual Q5M PRN Chest 01/08/23 02/28/24 History tablet (Nitrostat) Pain lisinopril 5 mg tablet 5 mg PO DAILY #90 tabs 03/19/23 02/28/24 Rx fluticasone furoate 50 1 inh inhalation DAILY 07/30/23 02/28/24 History mcg-vilanterol 25 mcg/dose inhalation powder (Breo Ellipta) clopidogrel 75 mg tablet 75 mg PO DAILY 02/28/24 02/28/24 History gabapentin 800 mg tablet 800 mg PO TID 02/28/24 02/28/24 History ondansetron 8 mg disintegrating 8 mg PO Q8 PRN N/V 02/28/24 02/28/24 History tablet oxycodone 5 mg tablet 5 mg PO .EVERY 4-6 HRS PRN Pain 02/28/24 02/28/24 History Patient History Medical History (Updated 02/29/24 @ 04:15 by Isidoro Adler MD) Acute and chronic respiratory failure with hypercapnia Hyperkalemia Urinary retention Hypoxia Somnolence Arthritis Urinary problem urinary hesitancy Spinal stenosis Diabetes IDDM Sleep apnea awaiting CPAP Hypertension Carotid arterial disease "no ICA stenosis.. severe left ECA stenosis" per cardiology office visit note 03/2019 > follows with Dr. Reyes in [place] Interstitial lung disease Surgical History (Updated 02/23/21 @ 09:17 by Caridad Servin, RN) History of elbow surgery right History of melanoma excision History of lumbar spinal fusion L5-S1 decompression/fusion (09/17/19): Grade view 2, Glidescope#3, ETT 8.0 at [facility] Status post lumbar surgery History of arthroscopy of right shoulder History of colonoscopy History of tonsillectomy History of hernia surgery X2 History of thumb surgery R/L History of repair of left rotator cuff History of cardiac cath stent x1 (2014) Synergy stent x1 (11/03/2020) Family History (Updated 04/04/21 @ 08:46 by Maryanne Morfin RN) Mother Diabetes Heart disease Cancer Lung cancer Father Cancer Oral cancer Other No family history of adverse response to anesthesia Social History Smoking Status: Current every day smoker Tobacco Type: Cigarettes Cigarettes Per Day: 2; Second Hand Exposure: No; Do You Dip or Chew Tobacco: No; Hx Alcohol Use: Yes Alcohol type: beer and hard liquor Hx Substance Use: No Preferred Language: Sinhala Communication Ability: Effective Visual Impairment: No Limitations Hearing Ability: Normal Supreme Court Judge Required: No Beliefs That Will Affect Care: None Current Living Situation: Spouse current occupational status: retired Feels Safe at Home: Yes Childhood Exposure to Second-Hand Smoke: Yes Diet Comment: food choices with less carbs, uses sugar substitute Assistive Devices: Glasses Review of Systems Review of Systems: The patient denies chest pain, palpitations, shortness of breath, dyspnea on exertion, cough, lower extremity swelling, sore throat, fevers, chills, sweats, weight change, fatigue, nausea, vomiting, diarrhea , constipation, blood in urine or stool, dysuria, urinary frequency or urgency, lightheadedness, dizziness, headache, memory loss, loss of consciousness, rash, abnormal bruising or bleeding, imbalance, focal or generalized weakness, numbness or tingling in arms or legs, generalized arthralgias or myalgias, back or neck pain, or night sweats. The review of systems is otherwise negative other than for that already noted above, and at least 10 systems have been reviewed. Physical Exam Physical Exam: Unremarkable right testicular examhe is tender but has no palpable abnormalities, no erythema, no swelling, no induration of the testis or epididymis I cannot generally appreciate an inguinal hernia although the CT suggest that he likely has a small hernia He is somewhat obese and he is supine on evaluation today Otherwise appears to be comfortable Results & Data Vital Signs (Past 12 Hours) Vital Signs Pulse Pulse Resp BP Pulse Ox Pulse Ox O2 Del Method 02/29/24 07:19 80 20 98/41 L 95 Room Air 02/29/24 06:59 78 02/29/24 05:00 77 16 115/61 96 CPAP 02/29/24 03:00 96 02/29/24 02:46 76 18 93/44 L 98 CPAP 02/29/24 02:21 82 23 91 02/29/24 01:15 85 16 98/48 L 94 Nasal Cannula 02/29/24 00:00 87 15 121/57 L 93 Nasal Cannula 02/28/24 23:45 86 O2 Del Method O2 Flow Rate 02/29/24 07:19 02/29/24 06:59 02/29/24 05:00 02/29/24 03:00 CPAP 02/29/24 02:46 02/29/24 02:21 2 02/29/24 01:15 2 02/29/24 00:00 2 02/28/24 23:45 PG Care Time/CCT Total # of Minutes Spent Total Time Spent with Patient: Total time spent is greater than 50% in coordination of care (as documented) at patient's floor/unit and/or counseling patient: Coding Level of Care Code 61317 IN/OBS CONSULT LVL 4,60M Diagnoses Testicular pain, right N50.811
[2024-02-29] MEDS: cefTRIAXone SODIUM 2,000 MG/50 ML BAG IV SCH (10:54)
[2024-02-29] MEDS: ACETAMINOPHEN 325 MG TAB PO PRN (12:21)
[2024-02-29] MEDS: CARBOHYDRATES FOR HYPOGLYCEMIA PO PRN (12:54)
[2024-02-29 13:13] LABS: Adenovirus PCR Not Detected (NotDetected); Bordetella parapertussis PCR Not Detected (NotDetected); Bordetella pertussis PCR Not Detected (NotDetected); Chlamydia pneumoniae PCR Not Detected (NotDetected); Coronavirus 229E PCR Not Detected (NotDetected); Coronavirus CoV-2 (COVID19)PCR Not Detected (NotDetected); Coronavirus HKU1 PCR Not Detected (NotDetected); Coronavirus NL63 PCR Not Detected (NotDetected); Coronavirus OC43PCR Not Detected (NotDetected); Human Metapneumovirus PCR Not Detected (NotDetected); Influenza A PCR Not Detected (NotDetected); Influenza B PCR Not Detected (NotDetected); Mycoplasma pneumoniae PCR Not Detected (NotDetected); Parainfluenza Virus 1 PCR Not Detected (NotDetected); Parainfluenza Virus 2 PCR Not Detected (NotDetected); Parainfluenza Virus 3 PCR Not Detected (NotDetected); Parainfluenza Virus 4 PCR Not Detected (NotDetected); Respiratory Syncytial VirusPCR Not Detected (NotDetected); Rhinovirus/Enterovirus PCR Not Detected (NotDetected)
[2024-02-29] MEDS ORDERED: PHARMACY GLYCEMIC MGMT CONSULT PRN (14:01)
--- NOTE | 2024-02-29 14:54 | Pharmacy Report ---
Pharmacy Glycemic Short Note 2 - Date of Service February 29, 2024 - Glycemic Short BSG Results (Last 24 hours): 02/28/24 02/28/24 02/28/24 19:32 20:16 20:23 Glucose 120 H POC Glucose 31 L* 139 H POC Glucose (other) 02/28/24 02/29/24 02/29/24 20:28 02:34 12:29 Glucose 77 POC Glucose 42 L* POC Glucose (other) 114 H 02/29/24 02/29/24 02/29/24 12:44 12:45 13:34 Glucose POC Glucose 32 L* 33 L* 91 POC Glucose (other) 02/29/24 14:39 Glucose POC Glucose 115 H POC Glucose (other) OUTPATIENT ANTIDIABETIC REGIMEN: * Tresiba 34 units SC AM * Novolog 10 units SC AC * NPH sliding scale ACHS (?) HbA1c: * 8.9% (01/21/24) ASSESSMENT: * 78 yo M admitted on 02/28/24 secondary to testicular pain. Pharmacy has been consulted to assist with inpatient glycemic management. Patient is a Type 2 diabetic as an outpatient. Please refer to outpatient regimen and most recent HbA1c above. * Patient has had two episodes of severe hypoglycemia since coming into the hospital. Upon admission, BSG was 31 mg/dL. Received an amp of D50 for this and BSG improved to 139 mg/dL. This afternoon, BSG was 42 mg/dL and worsened to 32 mg/dL. This prompted the pharmacy consult. Patient required OJ, a lunchtime and 8 glucose tabs to bring BSG up to 115 mg/dL. Did report blurred vision to nurse. Received 15 units of basal this morning but that is the only insulin. * Provider placed basal on hold. Agree with this and will continue. Novolog was loosened to CF only. PLAN FOR INPATIENT GLYCEMIC CONTROL: * Basal insulin * Lantus 15 units SC daily - ON HOLD * Bolus insulin * NovoLog per scale ACHS or Q6hrs while NPO * Goal Range: Low 120 mg/dL - High 160 mg/dL * Correction Factor: 50 mg/dL/unit *
[2024-02-29] MEDS: DOXYCYCLINE HYCLATE 100 MG in DEXTROSE 5% MINI-B 100 ML IV SCH (15:07)
[2024-02-29] MEDS: INSULIN ASPART PER UNIT CHARGE SC SCH (18:41)
[2024-02-29] MEDS ORDERED: NON-FORMULARY MEDICATION (Cpap Machine misc) SCH (21:00)
[2024-03-01] MEDS: CARBOHYDRATES FOR HYPOGLYCEMIA PO PRN (01:35)
[2024-03-01 06:30] LABS: Albumin Level 3.6 gm/dl (3.4-5.0); BUN Creatinine Ratio 29.1 (10-20); Calcium 8.8 mg/dl (8.6-10.3); Creatinine Clr Calc Pharmacy 47.3 ml/min; Magnesium 1.6 mg/dl (1.7-2.4); Phosphorus 2.8 mg/dl (2.5-4.9); Potassium 5.2 mmol/L (3.5-5.1)
[2024-03-01 06:31] LABS: Hematocrit (blood only) 29.7 % (42.0-52.0); Hemoglobin 9.8 g/dl (14.0-18.0); Mean Corpuscular Hemoglobin 31.8 pg (25.0-34.0); Mean Corpuscular Volume 96.4 fL (80.0-100.0); Mean Platelet Volume 10.4 fL (9.4-12.4); Platelet Count 164 K/uL (130-400); RDW Coefficient of Variation 14.3 % (11.5-14.5); RDW Standard Deviation 49.4 fL (36.4-46.3); Red Blood Count 3.08 M/uL (4.70-6.10)
[2024-03-01 07:38] LABS: ALC (manual) 1.06 K/uL (1.2-3.4); ANC (manual) 1.06 K/uL (1.4-6.5); Basophils # (manual) 0.05 K/uL (0-0.2); Basophils % (manual) 2 %; Lymphocytes # (manual) 1.06 K/uL (1.2-3.4); Lymphocytes % (manual) 44 %; Monocytes # (manual) 0.24 K/uL (0.11-0.59); Monocytes % (manual) 10 %; Neutrophils # (manual) 1.06 K/uL (1.40-6.50); Neutrophils % (manual) 44 %
[2024-03-01 08:06] VITALS: RESP 19
[2024-03-01] MEDS: MAGNESIUM SULFATE / D5W 1 GM/100 ML BAG IV ONE (08:21)
[2024-03-01] MEDS: MAGNESIUM OXIDE 400 MG TAB PO SCH (08:31)
[2024-03-01 10:55] VITALS: O2SAT 95
[2024-03-01] MEDS: LINACLOTIDE 145 MCG CAPSULE PO SCH (11:23)
[2024-03-01] MEDS: ASPIRIN 325 MG ECTAB PO SCH (11:24)
[2024-03-01] MEDS: CLOPIDOGREL BISULFATE 75 MG TAB PO SCH (11:24)
[2024-03-01] MEDS: FUROSEMIDE INJ 20 MG/2 ML VIAL IV ONE (11:35)
--- NOTE | 2024-03-01 14:21 | Pharmacy Report ---
Pharmacy Glycemic Short Note 2 - Date of Service March 01, 2024 - Glycemic Short BSG Results (Last 24 hours): 02/29/24 02/29/24 02/29/24 14:39 17:29 20:07 Glucose POC Glucose 115 H 172 H 181 H 03/01/24 03/01/24 03/01/24 01:31 01:33 01:50 Glucose POC Glucose 39 L* 44 L* 61 L* 03/01/24 03/01/24 03/01/24 01:51 05:33 07:19 Glucose 230 H POC Glucose 72 254 H 03/01/24 11:05 Glucose POC Glucose 172 H OUTPATIENT ANTIDIABETIC REGIMEN: * Tresiba 34 units SC AM * Novolog 10 units SC AC * NPH sliding scale ACHS (?) HbA1c: * 8.9% (01/21/24) ASSESSMENT: 03/01: * Robson only received the 15 units of basal plus 1 unit correctional yesterday. Again had hypoglycemia overnight requiring 30 g of carbs to treat. * BSG was 254 mg/dL this AM but not fasting and likely falsely elevated. Will discontinue any basal insulin. * Carb ratio removed yesterday, continue with this today. Okay with patient's BSG being in the 150-200 range given hypoglycemia. 02/28: * 78 yo M admitted on 02/28/24 secondary to testicular pain. Pharmacy has been consulted to assist with inpatient glycemic management. Patient is a Type 2 diabetic as an outpatient. Please refer to outpatient regimen and most recent HbA1c above. * Patient has had two episodes of severe hypoglycemia since coming into the hospital. Upon admission, BSG was 31 mg/dL. Received an amp of D50 for this and BSG improved to 139 mg/dL. This afternoon, BSG was 42 mg/dL and worsened to 32 mg/dL. This prompted the pharmacy consult. Patient required OJ, a lunchtime and 8 glucose tabs to bring BSG up to 115 mg/dL. Did report blurred vision to nurse. Received 15 units of basal this morning but that is the only insulin. * Provider placed basal on hold. Agree with this and will continue. Novolog was loosened to CF only. PLAN FOR INPATIENT GLYCEMIC CONTROL: * Basal insulin * None * Bolus insulin * NovoLog per scale ACHS or Q6hrs while NPO * Goal Range: Low 120 mg/dL - High 160 mg/dL * Correction Factor: 50 mg/dL/unit *
[2024-03-01 14:32] LABS: BUN Creatinine Ratio 22.6 (10-20); Calcium 9.4 mg/dl (8.6-10.3); Creatinine Clr Calc Pharmacy 41.7 ml/min; Potassium 4.9 mmol/L (3.5-5.1)
[2024-03-01 15:12] VITALS: BP 132/73; TEMP 97.9
--- NOTE | 2024-03-01 15:25 | Discharge Summary ---
Discharge Summary Date of Service March 01, 2024 Principal Dx & Hospital Course #1 = Principal Diagnosis (1) Testicular pain, right: (2) Metastatic lung cancer (metastasis from lung to other site): (3) Anemia: (4) Stage 3b chronic kidney disease: Plan The patient is a 78-year-old male with past medical history including metastatic lung cancer, gland lesion, stage IIIb CKD, JAY on CPAP, tobacco use, hypertension, PAD, GERD, CAD, COPD, and diabetes mellitus. The patient presents to the emergency department with severe intermittent right testicular pain. He denies any trauma, he denies any urinary frequency, urgency, dysuria or hematuria. He denies fevers or chills. He denies any previous episodes. Patient did have scrotal ultrasound in the ED, which showed no torsion of either testicle. Showed small bilateral hydroceles. Bilateral inguinal hernias were present, with question of bowel within the left hernia. Patient was seen in the hospital. His inguinal pain improved and was tolerable day of admission, although occurred intermittently and sporadically in the morning. Overall patient felt that this was improved and 1/10 on day of discharge. Suspected this was likely due to his not on incarcerated hernia. It was initially suspected to have a potential back pain component however on exam was directly and easily reproducible on inguinal ring palpation suspect this is more likely related to his hernia. Was recommended for outpatient surgical follow-up. Pain adequately controlled and no emergent surgical findings during admission. He did present with hypotension and concern for sepsis. No findings of acute infection on follow-up. Did have cough with some congestion differential included atypical pneumonia, no lobar pneumonia was seen on x-ray. Procalcitonin was detectable but within normal range. Bio fire was negative. Given hypotension poor clinical appearance and possibility respiratory infection patient was continued on coverage for 5 days with cefdinir and doxycycline for a typical coverage. Patient felt that he was at his normal baseline health, ambulating at his normal strength, and was able to walk the halls independently and did not have discomfort at time of discharge. To do as outpatient: 1. Complete cefdinir 300 mg twice daily x 4 days, doxycycline 100 mg twice daily x 4 days 2. Outpatient follow-up with PCP 3. Outpatient follow-up with general surgery for evaluation of symptomatic right inguinal hernia without incarceration 4. Follow-up as outpatient with oncology for enlarging subpleural opacity noted on imaging 5. Discontinue lisinopril due to hyperkalemia which normalized day of discharge. Patient's blood pressure remained normal while this was held. Severe intermittent sharp right testicular pain, suspect inguinal hernia 2 days of symptoms. Patient was started on Rocephin for possible epididymitis/orchitis. UA is not infected appearing, labs do not appear infected. Patient is focally tender at the right internal inguinal ring. Suspect due to hernia rather than infectious etiology. Antibiotics discontinued for this, however with concerns for pneumonia as otherwise noted Tylenol, oxycodone, breakthrough morphine for pain control Urology consulted on admit for eval of ?epididymitis/oorchitis on admit eval. clinical findings of note on and imaging or labs. Suspected to have referred pain, no role for urologic intervention. Not suspected to have infection. Was recommended for anti-inflammatory/pain control and evaluation of alternative etiologies On exam does have tenderness on palpation of internal inguinal ring. CT does show a right fat-containing hernia. Question of bowel contained in the left hernia however pain is not present on the side. Do not see evidence of strangulation. Lactate is normal. Pain is intermittent. Patient is not obstructed/angulated and is on DAPT. Recommended for outpatient surgical follow-up.,continue multimodal pain control. NSAIDs not recommended due to renal dysfunction. Will continue Tylenol and breakthrough hydromorphone Hypotension,? Sepsis Patient with hypotension and concern for infection on admission. Does not have a white count S/p 2 L of NSS in the ER +1 additional liter on admission. This satisfies his 2820 cc recommendations for sepsis BP normalized although again hypotensive in the afternoon. No hypoxia. Additional liter ordered Low suspicion for infection. Groundglass opacity seen in inferior casey of A/P, CTchest ordered which does not show any lobar pneumonia but does show a progressive left effusion and subpleural opacity 1/4 patient has developed sinus congestion, rhinorrhea, and dry nonproductive cough. Bio fire ordered. He is hypoxic 89% in the ER, does not have a home oxygen requirement. BioFire is negative. Will include azithromycin for atypical coverage given new cough, hypoxia, and hypotension. Sputum culture pending. Pro-Thang is detectable but normal. Stage IV non-small cell lung adenocarcinoma Carbo Taxol/Keytruda treatment started 01/22/2024, recommended for consolidation radiation therapy to adrenal gland Left adrenal gland FNA showed metastatic NSCLC Patient reports he follows with Dr. Choudhury, no longer follows with pulmonology. Previously did follow for interstitial lung disease of unclear etiology but suspected tobacco related with JAY overlap, patient had quit tobacco products. No acute change in management but will need repeat imaging and follow-up for the enlarging subpleural opacity Admission HPI Per Admitting Provider The patient is a 78-year-old male with past medical history including metastatic lung cancer, gland lesion, stage IIIb CKD, JAY on CPAP, tobacco use, hypertension, PAD, GERD, CAD, COPD, and diabetes mellitus. The patient presents to the emergency department with severe intermittent right testicular pain. He denies any trauma, he denies any urinary frequency, urgency, dysuria or hematuria. He denies fevers or chills. He denies any previous episodes. Patient did have scrotal ultrasound in the ED, which showed no torsion of either testicle. Showed small bilateral hydroceles. Bilateral inguinal hernias were present, with question of bowel within the left hernia. Discharge Exam General: A&Ox3. NAD. Cooperative. HEENT: Atraumatic, normocephalic. Hearing grossly intact Pulm: Diminished, crackles in the bases. Symmetrical chest rise. No increased work of breathing. No respiratory distress. Cardiac: RRR, -mrg. Radial pulses intact and symmetrical. Abdominal: Nontender, nondistended, soft. BS present. : No scrotal erythema/edema. Palpation of right inguinal ring with fullness and produces pain. No left-sided scrotal tenderness. Discharge Plan Discharge Items Patient Disposition: Home - Self-Care Reason For Visit: SEPIS DUE TO ORCHITIS Discharge Diagnosis: Inguinal hernia Activity: Resume your previous activity Non-emergency contact: Primary Care Provider and Surgeon Call non-emergency contact if: you have any medication questions Follow-up/Referrals: Maria M Reese CRNP [Primary Care Provider] - Diet: Regular Addtl Attending Provider Instructions: You were seen in the hospital for right groin pain. Your urine test did not show signs of infection. Palpation of your right internal inguinal ring, a structure palpable through the testes, reproduced and worsened your pain. This is consistent with a inguinal hernia. Your pain improved during admission. There was no evidence of strangulation and no surgical emergency at time of hospital assessment. Is recommended to use Tylenol 500 mg every 4 hours as needed for pain control. Do not drink alcohol while taking Tylenol. Outpatient general surgery follow-up is being scheduled for you to discuss potential options if your hernia continues to be symptomatic. Your potassium was borderline elevated during admission. Lisinopril can cause high potassium levels, this was held for high potassium. Day of discharge your potassium levels were the upper range of normal. Please discuss your lisinopril with your primary care provider before resuming this, for now it has been discontinued. Your blood pressure remained normal without this medication On admission you were hypotensive, and with some concerns for infection on your blood work. Did not show evidence of a UTI. Your chest x-ray did not show evidence of atypical pneumonia, differential included an atypical pneumonia. You were prescribed 4 days of antibiotics as below. If you develop any worsening symptoms please contact your PCP, or return to the ER for evaluation of your very concern. You have been prescribed an antibiotic cefdinir. Please take cefdinir 300 mg by mouth twice daily for 4 days. If been prescribed an antibiotic, doxycycline. Please take doxycycline 100 mg by mouth twice daily for [address] scan showed a possibly slightly enlarged subpleural nodule compared to prior imaging. This may be normal due to posttreatment change, however to rule out potential recurrent malignancy a repeat CT scan is recommended in approximately 6 weeks. Please follow-up on this result with your PCP or oncologist. If you develop any new or worsening symptoms including fever, chills, sweats, chest pain, chest pressure, difficulty breathing, uncontrolled nausea/vomiting, rash, wheezing, passing out or nearly passing out, bleeding, black/bloody bowel movements, or other new or concerning symptoms please call your primary care physician, or call 911 for re-evaluation in the emergency department if you are very concerned. Pending Studies at Discharge: No Stand-Alone Forms: My [employer], Smoking Cessation Medications and DC Order Prescriptions: New cefdinir 300 mg capsule 300 mg PO BID 4 Days Qty: 8 0RF doxycycline hyclate 100 mg capsule 100 mg PO BID 4 Days Qty: 8 0RF magnesium oxide 400 mg magnesium tablet 400 mg PO DAILY Qty: 14 0RF Continued Breo Ellipta 50-25 mcg/dose blister with device 1 inh inhalation DAILY (DME) CPAP Machine Misc See Rx Instructions .ROUTE .MEDSUPPLY Qty: 1 0RF Rx Instructions: Auto CPAP 5-17 cmH2O; heated humidification; capable of collecting AHI and compliance data with modem; duration use 99 years (DME) CPAP Supplies Mis See Rx Instructions .ROUTE .MEDSUPPLY Qty: 1 0RF Rx Instructions: tubing, filters, all appropriate supplies; mask fit benzonatate 200 mg capsule 200 mg PO Q8H PRN (Reason: cough) insulin degludec [Tresiba FlexTouch U-100] 100 unit/mL (3 mL) insulin pen 34 unit SUBCUT QAM insulin aspart U-100 [Novolog FlexPen U-100 Insulin] 100 unit/mL (3 mL) insulin pen 10 unit subcut AC Rx Instructions: Inject 10 units prior to meals as directed Linzess 290 mcg capsule 290 mcg PO DAILY nitroglycerin [Nitrostat] 0.4 mg tablet, sublingual 0.4 mg sublingual Q5M PRN (Reason: Chest Pain) Rx Instructions: 1 tablet SL as needed for chest pain. DO NOT EXCEED 3 tablets in 15 minutes. Call 911 for any unrelieved chest pain. pantoprazole [Protonix] 40 mg tablet,delayed release (DR/EC) 40 mg PO BID citalopram [Celexa] 40 mg tablet 60 mg PO QAM Patient Comments: Take 1 and 1/2 tablets daily by mouth for a total of 40 MG. (DME) CPAP Machine Misc See Rx Instructions .ROUTE .MEDSUPPLY Qty: 1 0RF Rx Instructions: INCREASE CPPAP TO 12 CMS TO OPAL HOME albuterol sulfate [Ventolin HFA] 90 mcg/actuation HFA aerosol inhaler 2 puffs INH Q6H PRN (Reason: shortness of breath or wheezing) Qty: 8.5 5RF rosuvastatin [Crestor] 20 mg tablet 20 mg PO QAM Novolin N FlexPen 100 unit/mL (3 mL) insulin pen 0 unit SUBCUT TIDM Patient Comments: With meals and at bedtime Rx Instructions: >120-10 units 121-150-15 units 151-200-20 units aspirin 325 mg Tablet 325 mg PO DAILY clopidogrel 75 mg tablet 75 mg PO DAILY ondansetron 8 mg tablet,disintegrating 8 mg PO Q8 PRN (Reason: N/V) oxycodone 5 mg tablet 5 mg PO .EVERY 4-6 HRS PRN (Reason: Pain) gabapentin 800 mg tablet 800 mg PO TID Discontinued lisinopril 5 mg tablet 5 mg PO DAILY Qty: 90 3RF Discharge Orders: Discharge Order (Routine); Ordered 03/01/24 Ordered By: Moises Nicole Admission Data Admit Date/Time: 02/28/24 23:16 Attending Provider: Moises Nicole Admit Provider: Isidoro Adler Primary Care Provider: Maria M Reese Other Providers: Isidoro Adler; Carlo Awad Other Interventions: Discharge Summary Assessment (RN) Last Done: 03/01/24 16:07 Hospital Stay Data Consultations 02/28/24 22:37 ED Decision to Admit Stat 02/29/24 04:13 Consult Urology Routine Diagnostic Imagining Performed 02/28/24 19:42 US Testicles [US scrotum/testicle] Stat 02/29/24 04:23 CT Abd and Pelvis [CT abd pelvis wo con] Stat 02/29/24 07:39 CT chest diagnostic wo con Stat Discharge Instructions Given to Patient (Per Discharging Provider) You were seen in the hospital for right groin pain. Your urine test did not show signs of infection. Palpation of your right internal inguinal ring, a structure palpable through the testes, reproduced and worsened your pain. This is consistent with a inguinal hernia. Your pain improved during admission. There was no evidence of strangulation and no surgical emergency at time of hospital assessment. Is recommended to use Tylenol 500 mg every 4 hours as needed for pain control. Do not drink alcohol while taking Tylenol. Outpatient general surgery follow-up is being scheduled for you to discuss potential options if your hernia continues to be symptomatic. Your potassium was borderline elevated during admission. Lisinopril can cause high potassium levels, this was held for high potassium. Day of discharge your potassium levels were the upper range of normal. Please discuss your lisinopril with your primary care provider before resuming this, for now it has been discontinued. Your blood pressure remained normal without this medication On admission you were hypotensive, and with some concerns for infection on your blood work. Did not show evidence of a UTI. Your chest x-ray did not show evidence of atypical pneumonia, differential included an atypical pneumonia. You were prescribed 4 days of antibiotics as below. If you develop any worsening symptoms please contact your PCP, or return to the ER for evaluation of your very concern. You have been prescribed an antibiotic cefdinir. Please take cefdinir 300 mg by mouth twice daily for 4 days. If been prescribed an antibiotic, doxycycline. Please take doxycycline 100 mg by mouth twice daily for [address] scan showed a possibly slightly enlarged subpleural nodule compared to prior imaging. This may be normal due to posttreatment change, however to rule out potential recurrent malignancy a repeat CT scan is recommended in approximately 6 weeks. Please follow-up on this result with your PCP or oncologist. If you develop any new or worsening symptoms including fever, chills, sweats, chest pain, chest pressure, difficulty breathing, uncontrolled nausea/vomiting, rash, wheezing, passing out or nearly passing out, bleeding, black/bloody bowel movements, or other new or concerning symptoms please call your primary care physician, or call 911 for re-evaluation in the emergency department if you are very concerned. Total Time Total Time Spent Total Time Spent (In Minutes): Time spend day of discharge 60 minutes including direct patient care, documentation, review of labs and images, and coordination of care. Coding Level of Care Code 88861 INP/OBS DISCH >30 MIN Diagnoses Testicular pain, right N50.811 Metastatic lung cancer (metastasis from lung to other site) C34.90 Anemia D64.9 Stage 3b chronic kidney disease N18.32
[2024-03-01 16:14] VITALS: PULSE 84
--- NOTE | 2024-03-02 08:55 | Electrocardiogram Report ---
Test Reason : Blood Pressure : */* mmHG Vent. Rate : 85 BPM Atrial Rate : 85 BPM P-R Int : 152 ms QRS Dur : 90 ms QT Int : 400 ms P-R-T Axes : 65 45 66 degrees QTcB Int : 476 ms Normal sinus rhythm Possible Anterior infarct , age undetermined Abnormal ECG When compared with ECG of 04-May-2022 10:26, No significant change was found Confirmed by Arsen Calvo ([id number]) on 03/02/2024 8:54:33 AM Referred By: REFERRED SELF Confirmed By: Arsen Calvo
== END 2024-03-01 17:45 | disposition home or self-care (01) | DRG 394 ==
LOC: ED 18:53 → EDINP 23:16 → SUATTDRO 23:16 → INTOOBSV 23:16 → 2S 02-29 02:18

== ENCOUNTER 2024-03-31 16:25 | Inpatient (IN) ==
[2024-03-31 17:05] LABS: Basophils # (auto) 0.04 K/uL (0.00-0.20); Basophils % (auto) 0.5 %; Eosinophils # (auto) 0.08 K/uL (0.00-0.50); Eosinophils % (auto) 1.1 %; Hematocrit (blood only) 34.4 % (42.0-52.0); Hemoglobin 11.7 g/dl (14.0-18.0); Immature Granulocytes # (auto) 0.06 K/uL (0.01-0.20); Immature Granulocytes % (auto) 0.8 %; Lymphocytes # (auto) 1.09 K/uL (1.20-3.40); Lymphocytes % (auto) 14.7 %; Mean Corpuscular Hemoglobin 32.3 pg (25.0-34.0); Mean Platelet Volume 10.2 fL (9.4-12.4); Monocytes # (auto) 0.11 K/uL (0.11-0.59); Monocytes % (auto) 1.5 %; Neutrophils # (auto) 6.04 K/uL (1.40-6.50); Neutrophils % (auto) 81.4 %; Platelet Count 175 K/uL (130-400); RDW Coefficient of Variation 15.7 % (11.5-14.5); Red Blood Count 3.62 M/uL (4.70-6.10); White Blood Count 7.42 K/ul (4.8-10.8)
[2024-03-31 17:22] LABS: Alanine Aminotransferase 15 U/L (7-52); Albumin Globulin Ratio 1.3 (0.9-2); Albumin Level 3.8 gm/dl (3.4-5.0); Alkaline Phosphatase 68 U/L (34-104); Anion Gap 6 (3-11); Aspartate Aminotransferase 16 U/L (13-39); BUN Creatinine Ratio 29.1 (10-20); Bilirubin,Total 0.8 mg/dl (0.2-1.0); Blood Urea Nitrogen 51 mg/dl (6-23); Calcium 10.1 mg/dl (8.6-10.3); Carbon Dioxide 26 mmol/L (21-32); Chloride 102 mmol/L (98-107); Glucose 175 mg/dl (70-99(Fasting)); Potassium 4.6 mmol/L (3.5-5.1); Sodium 134 mmol/L (136-145); Total Protein 6.8 gm/dl (6.0-8.3)
[2024-03-31 17:29] LABS: Magnesium 2.3 mg/dl (1.7-2.4)
[2024-03-31] MEDS: SODIUM CHLORIDE 0.9% 1,000 ML IV ONE (17:32)
[2024-03-31 17:34] LABS: Influenza A virus by PCR Negative (Neg); Influenza B virus by PCR Negative (Neg); RSV by PCR Negative (Neg); SARS CoV2 RNA(COVID-19) Ceph NEGATIVE (Negative)
[2024-03-31 17:34] LABS: Creatine Kinase 41 U/L (30-223)
[2024-03-31 17:37] LABS: Troponin I High Sensitivity 27.3 pg/ml (0-20)
[2024-03-31 17:38] LABS: Base Excess VBG 0 mEq/L; HCO3 VBG 25 mmol/L; Oxygen Saturation VBG < 60.0 %; PCO2 VBG 40 mmHg (38-50); PO2 VBG 26 mmHg
--- NOTE | 2024-03-31 17:52 | XRay Report ---
INDICATION: Chest pain. TECHNIQUE: Frontal radiograph of the chest. COMPARISON: Radiograph from 07/28/2024. FINDINGS: Cardiomegaly. Mild pulmonary vascular congestion. Chronic appearing left upper/lower lobe opacities and left pleural effusion. Findings unchanged from prior. No pneumothorax. No acute fracture. IMPRESSION: Mild pulmonary vascular congestion. Chronic appearing left upper/lower lobe opacities and left pleural effusion. Findings unchanged from prior. Electronically signed by Dung Mendoza 03-31-2024 5:52 PM
[2024-03-31 18:07] LABS: INR 0.9 (0.9-1.1); Partial Thromboplastin Time 26 Seconds (21-31); Prothrombin Time 10.3 Seconds (9.0-12.0)
[2024-03-31 18:34] LABS: Adenovirus PCR Not Detected (NotDetected); Bordetella parapertussis PCR Not Detected (NotDetected); Bordetella pertussis PCR Not Detected (NotDetected); Chlamydia pneumoniae PCR Not Detected (NotDetected); Coronavirus 229E PCR Not Detected (NotDetected); Coronavirus CoV-2 (COVID19)PCR Not Detected (NotDetected); Coronavirus HKU1 PCR Not Detected (NotDetected); Coronavirus NL63 PCR Not Detected (NotDetected); Coronavirus OC43PCR Not Detected (NotDetected); Human Metapneumovirus PCR Not Detected (NotDetected); Influenza A PCR Not Detected (NotDetected); Influenza B PCR Not Detected (NotDetected); Mycoplasma pneumoniae PCR Not Detected (NotDetected); Parainfluenza Virus 1 PCR Not Detected (NotDetected); Parainfluenza Virus 2 PCR Not Detected (NotDetected); Parainfluenza Virus 3 PCR Not Detected (NotDetected); Parainfluenza Virus 4 PCR Not Detected (NotDetected); Respiratory Syncytial VirusPCR Not Detected (NotDetected); Rhinovirus/Enterovirus PCR Not Detected (NotDetected)
[2024-03-31] MEDS: MoRPHine SULFATE 2 MG/ML CARP IV STA (19:10)
--- NOTE | 2024-03-31 19:23 | CT Scan Report ---
CT head without contrast History: Trauma Comparison: None Technique: Using multidetector thin collimation helical acquisition technique, axial, coronal and sagittal CT images from the skull base to the vertex were obtained without intravenous contrast. Dose reduction techniques were achieved by using automatic exposure control and/or adjustment of mA and/or kV according to patient size and/or use of iterative reconstruction technique. Findings: No intracranial hemorrhage, mass-effect, or midline shift. The ventricles are proportionate to the cerebral sulci. The grey to white matter differentiation of the cerebral hemispheres is preserved. The basal cisterns are patent. There is moderate cerebral atrophy. Moderate, patchy low-attenuation changes in the white matter, most suggestive of sequelae of chronic small vessel ischemic disease. The visualized paranasal sinuses are clear. Mastoid air cells are clear. Impression: No acute intracranial pathology. Electronically signed by Carlo Pierson 03-31-2024 7:23 PM
--- NOTE | 2024-03-31 19:24 | CT Scan Report ---
CT cervical spine without IV contrast History: Trauma Comparison: None Technique: Using multidetector thin collimation helical acquisition technique, axial, coronal and sagittal CT images through the cervical spine were obtained without intravenous contrast. Dose reduction techniques were achieved by using automatic exposure control and/or adjustment of mA and/or kV according to patient size and/or use of iterative reconstruction technique. Findings: The cervical vertebrae are normally aligned. Straightened cervical lordosis. No acute fracture or subluxation. No prevertebral edema. Mild multilevel discogenic and facet degenerative changes. There is moderate atlantodental degenerative change. No abnormality of the paraspinous soft tissues. The lungs appear emphysematous. A left pleural effusion is partially seen. Impression: No acute fracture or traumatic subluxation. A left pleural effusion is partially seen at the left lung apex. Electronically signed by Carlo Pierson 03-31-2024 7:23 PM
--- NOTE | 2024-03-31 19:24 | CT Scan Report ---
EXAMINATION: CT of the abdomen and pelvis performed without contrast TECHNIQUE: Helical CT images from the lung bases through the symphysis pubis were obtained without contrast. Coronal and sagittal reformatted images were generated at a workstation for further assessment. Dose reduction techniques were achieved by using automatic exposure control and/or adjustment of mA and/or kV according to patient size and/or use of iterative reconstruction technique. COMPARISON: None HISTORY: Trauma FINDINGS: Lower chest: There is a small left basilar pleural effusion seen. Mild scattered areas of patchy groundglass and small nodular opacity throughout the lung bases in the right middle lobe. Liver: No suspicious liver lesions. Gallbladder: Punctate gallstone seen at the neck. No evidence of acute cholecystitis. Spleen: Normal size. Pancreas: No suspicious pancreatic lesions. The pancreatic duct is not dilated. Adrenal glands: No adrenal nodules. Kidneys: No hydronephrosis or obstructing renal stones. There is an 8 mm lesion at the inferior pole of the left kidney which is high in attenuation, most consistent with a hemorrhagic/proteinaceous cyst. Otherwise no additional visualized masses seen on this noncontrast CT. Bladder / Pelvic organs: Unremarkable. Bowel: No bowel obstruction. No abnormal bowel wall thickening. The appendix is unremarkable. Left colonic diverticulosis without evidence for diverticulitis. There is a large colonic stool burden. Lymph nodes: No retroperitoneal, mesenteric, or pelvic lymphadenopathy. Peritoneum / Retroperitoneum: No free fluid or air within the abdomen. Vessels: No infrarenal aortic aneurysm. Heavy aortoiliac calcification. Bones and soft tissues: No suspicious lesion in the bones. L5-S1 fixation changes. Small fat-containing inguinal hernias. IMPRESSION: No evidence for an acute traumatic abnormality of the abdomen or pelvis. Patchy groundglass and nodular densities in the right middle lobe and lower lungs, appear infectious. There is a small left pleural effusion. Electronically signed by Carlo Pierson 03-31-2024 7:23 PM
--- NOTE | 2024-03-31 20:01 | Emergency Department Note ---
History of Present Illness General Chief complaint: Illness Stated complaint: CX PT, PAIN LEVEL IN BODY, NAUSEA, NOT EATING Time Seen by Provider: 03/31/24 17:07 History of Present Illness Provider complaint: Illness Maximum Pain Intensity: 8 78-year-old male presents emergency department for illness. Patient has a history of lung cancer with metastasis. He states since his last chemo treatment 1 week ago he has been having diffuse myalgias. No fevers. Reports he has been weak and not eating. reports he fell 2 weeks ago. Home Medications Medication Instructions Recorded Confirmed Type pantoprazole 40 mg tablet,delayed 40 mg PO BID 12/23/18 03/23/24 History release (Protonix) CPAP Machine #1 ea 04/22/19 03/23/24 Rx CPAP Supplies #1 04/22/19 03/23/24 Rx CPAP Machine #1 08/10/19 03/23/24 Rx albuterol sulfate 90 mcg/actuation 2 puffs inhalation Q6H PRN 08/10/19 03/23/24 Rx aerosol inhaler (Ventolin HFA) shortness of breath or wheezing #8.5 grams rosuvastatin 20 mg tablet (Crestor) 20 mg PO QAM 09/06/20 03/23/24 History citalopram 40 mg tablet (Celexa) 60 mg PO QAM 04/04/21 03/23/24 History aspirin 325 mg tablet 325 mg PO DAILY 07/27/21 03/23/24 History benzonatate 200 mg capsule 200 mg PO Q8H PRN cough 01/08/23 03/23/24 History insulin aspart U-100 100 unit/mL 10 unit subcut AC 01/08/23 03/23/24 History (3 mL) subcutaneous pen (Novolog FlexPen U-100 Insulin aspart) insulin degludec 100 unit/mL (3 34 unit subcut QAM diabetes 01/08/23 03/23/24 History mL) subcutaneous pen (Tresiba FlexTouch U-100 insulin) linaclotide 290 mcg capsule 290 mcg PO DAILY 01/08/23 03/23/24 History (Linzess) nitroglycerin 0.4 mg sublingual 0.4 mg sublingual Q5M PRN Chest 01/08/23 03/23/24 History tablet (Nitrostat) Pain fluticasone furoate 50 1 inh inhalation DAILY 07/30/23 03/23/24 History mcg-vilanterol 25 mcg/dose inhalation powder (Breo Ellipta) clopidogrel 75 mg tablet 75 mg PO DAILY 02/28/24 03/23/24 History gabapentin 800 mg tablet 800 mg PO TID 02/28/24 03/23/24 History ondansetron 8 mg disintegrating 8 mg PO Q8 PRN N/V 02/28/24 03/23/24 History tablet oxycodone 5 mg tablet 5 mg PO .EVERY 4-6 HRS PRN Pain 02/28/24 03/23/24 History magnesium oxide 400 mg PO DAILY #14 tabs 03/01/24 03/23/24 Rx insulin NPH isoph U-100 human 100 15 unit (0.15 mL) subcut .COMPLEX 03/23/24 03/23/24 Rx unit/mL (3 mL) subcutaneous pen #15 mL (Humulin N NPH U-100 Insulin KwikPen) Allergies Allergy/AdvReac Type Severity Reaction Status Date / Time adhesive Allergy Mild Silk/plastic Verified 03/23/24 09:58 adhesive tape (redness, blistering) Sulfa (Sulfonamide AdvReac Intermediate nausea & Verified 03/23/24 09:58 Antibiotics) vomiting Past Med/Surg History Problem List (Updated 03/31/24 @ 20:11 by Eliseo Phillip MD) Pneumonia (Acute) Hypoxia (Acute) Hypercalcemia Hypoglycemia (Acute) Pain in right testicle (Acute) Testicular pain, right Metastatic lung cancer (metastasis from lung to other site) Lesion of adrenal gland Anemia Vitamin D deficiency Stage 3b chronic kidney disease Constipation JAY on CPAP Neurogenic claudication due to lumbar spinal stenosis Tobacco use Hypomagnesemia Elevated troponin Hypervolemia LUQ abdominal pain (Acute) Hypoxia (Acute) Leukocytosis (Acute) Pneumonia (Acute) Vomiting (Acute) Hypertension (Acute) Acute kidney injury (Acute) Acidosis, lactic (Acute) Acute hypotension (Acute) Acute dehydration (Acute) Solitary pulmonary nodule (Chronic) Depression Chest pain Lung cancer Stroke Immediately after spinal fusion 04/2019---went into kidney failure at the same time > only deficit is sometimes he "dribbles out of the left side of his mouth" Peripheral arterial occlusive disease "total occlusion of the SFA and the left mid thigh area with reconstitution with collaterals and monophasic flow bilateral below knee area" per cardiology office visit note 03/2019 Hyperlipidemia GERD (gastroesophageal reflux disease) controlled DM type 2 (diabetes mellitus, type 2) CAD (coronary artery disease) angioplasty/KARRIE to pRCA (2014) Synergy stent (11/03/2020) after failed stress test Chronic obstructive pulmonary disease CKD (chronic kidney disease), stage III Pulmonary nodule 1 cm or greater in diameter (Chronic 08/25/20) Medical History Acute and chronic respiratory failure with hypercapnia Hyperkalemia Urinary retention Hypoxia Somnolence Arthritis Urinary problem urinary hesitancy Spinal stenosis Diabetes IDDM Sleep apnea awaiting CPAP Hypertension Carotid arterial disease "no ICA stenosis.. severe left ECA stenosis" per cardiology office visit note 03/2019 > follows with Dr. Reyes in [place] Interstitial lung disease Surgical History History of elbow surgery right History of melanoma excision History of lumbar spinal fusion L5-S1 decompression/fusion (09/17/19): Grade view 2, Glidescope#3, ETT 8.0 at [facility] Status post lumbar surgery History of arthroscopy of right shoulder History of colonoscopy History of tonsillectomy History of hernia surgery X2 History of thumb surgery R/L History of repair of left rotator cuff History of cardiac cath stent x1 (2014) Synergy stent x1 (11/03/2020) Family History Mother Diabetes Heart disease Cancer Lung cancer Father Cancer Oral cancer Other No family history of adverse response to anesthesia Social History Smoking Status: Current every day smoker Tobacco Type: Cigarettes Cigarettes Per Day: 2; Second Hand Exposure: No; Do You Dip or Chew Tobacco: No; Hx Alcohol Use: Yes Alcohol type: beer and hard liquor Hx Substance Use: No Preferred Language: Burkinan Communication Ability: Effective Visual Impairment: No Limitations Hearing Ability: Normal Entry Operator Required: No Beliefs That Will Affect Care: None Current Living Situation: Spouse current occupational status: retired Feels Safe at Home: Yes Childhood Exposure to Second-Hand Smoke: Yes Diet Comment: food choices with less carbs, uses sugar substitute Assistive Devices: Glasses Physical Exam Vital Signs Vital Signs - 24 hr 03/31/24 16:33 03/31/24 17:17 03/31/24 18:01 Temperature 37.1 C Temperature Source Temporal Artery Scan Pulse Rate 88 80 Pulse Rate [Left Finger] 77 Pulse Rate from SpO2 Sensor Respiratory Rate 18 18 Blood Pressure 97/58 L Blood Pressure [Right Arm] 130/76 Blood Pressure Mean 71 Blood Pressure Mean [Right Arm] 94 Pulse Oximetry 96 93 Oxygen Delivery Method Room Air Room Air Oxygen Flow Rate Sepsis Recent Fever Within 48 Hours No Sepsis New/Unexplained Change in Mental Status N/A Sepsis Action Taken by Nursing No Action Required 03/31/24 18:11 03/31/24 18:11 03/31/24 19:03 Temperature Temperature Source Pulse Rate 84 Pulse Rate [Left Finger] Pulse Rate from SpO2 Sensor 84 Respiratory Rate 20 Blood Pressure 138/66 Blood Pressure [Right Arm] Blood Pressure Mean 90 Blood Pressure Mean [Right Arm] Pulse Oximetry 85 L 93 96 Oxygen Delivery Method Room Air Nasal Cannula Nasal Cannula Oxygen Flow Rate 3 3 Sepsis Recent Fever Within 48 Hours Sepsis New/Unexplained Change in Mental Status Sepsis Action Taken by Nursing Physical Exam GENERAL: Ill-appearing. HENT: Exam performed. - Head: Abrasion to the head. - Mouth/Throat: The oropharynx is clear and moist. No trismus in the jaw. No dental abscesses or uvula swelling. No oropharyngeal exudate or tonsillar abscesses. EYES: Conjunctivae and EOM are normal. Pupils are equal, round, and reactive to light. Right eye exhibits no discharge. Left eye exhibits no discharge. No scleral icterus. NECK: Normal range of motion. Neck supple. No JVD present. No spinous process tenderness present. CV: Normal rate, regular rhythm, normal heart sounds and intact distal pulses. There is no peripheral edema. Palpable radial pulses bue. PULM/CHEST: Effort normal and breath sounds normal. No respiratory distress. No stridor. He has no wheezes. He has no rales. - Chest Wall: He exhibits no tenderness. No crepitus bilaterally. ABD: The abdomen is soft. Ecchymosis over the anterior abdominal wall. There is no tenderness. There is no rebound, no guarding MUSC/SKEL: Pelvis stable. NEURO: Motor and sensation grossly intact. Course Course 170: The patient was evaluated in room . A complete history and physical exam was performed Cardiac monitoring: An order was placed for continuous cardiac monitoring. The monitor shows a rate of 90 with sinus rhythm interpreted by me 1900: Patient came hypoxic on room air. Supplemental oxygen applied which improved the patient's oxygen saturation. 2006: Vital signs stable supplemental oxygen via nasal cannula. Labs show normal white blood cell count. VBG and coagulation studies within normal limits. Creatinine at baseline 1.75. Procalcitonin lactic acid and BioFire negative. Chest x-ray shows pulmonary vascular congestion with chronic appearing left upper and lower lobe opacities and left-sided pleural effusion. CT abdomen pelvis shows groundglass nodular densities right middle and lower lobe that appear to be infectious. Patient's BNP is mildly elevated 131. Given the patient's history of breathing no compromise secondary to chemo patient will treat with Zosyn. Discussed case with [facility] hospitalist Dr. Montes who will evaluate patient for admission. Administered Medications Discontinued Medications Sodium Chloride (Nss) 1,000 mls @ 999 mls/hr IV .Q1H1M ONE Stop: 03/31/24 18:10 Last Infusion: 03/31/24 19:13 Dose: Infused Documented By: Admin: 03/31/24 17:32 Dose: 999 mls/hr Documented By: JOSE Morphine Sulfate (Morphine Sulfate 2 Mg/Ml Carp) 2 mg IV NOW STA Stop: 03/31/24 19:01 Last Admin: 03/31/24 19:10 Dose: 2 mg Documented By: DIMAS Critical Care Time Critical Care Time: Yes Total Critical Care Time: 38 I have personally spent greater than 38 minutes of critical care time in the direct management of this patient. This includes bedside care, interpretation of diagnostic studies, and testing, discussion with consultants, patient, and family members, and other required patient management activities. This 38 minutes is in excess of all separately billable procedures. Medical Decision Making Laboratory Data Attestation: I reviewed the patient's lab results. 03/31/24 16:48 03/31/24 16:48 Lab Results 03/31/24 03/31/24 03/31/24 Range/Units 16:47 16:48 17:25 WBC 7.42 (4.8-10.8) K/ul RBC 3.62 L (4.70-6.10) M/uL Hgb 11.7 L (14.0-18.0) g/dl Hct 34.4 L (42.0-52.0) % MCV 95.0 (80.0-100.0) fL MCH 32.3 (25.0-34.0) pg MCHC 34.0 (32.0-36.0) g/dL RDW Std Deviation 55.0 H (36.4-46.3) fL RDW Coeff of Jono 15.7 H (11.5-14.5) % Plt Count 175 (130-400) K/uL MPV 10.2 (9.4-12.4) fL Immature Gran % (Auto) 0.8 % Neut % (Auto) 81.4 % Lymph % (Auto) 14.7 % [place] % (Auto) 1.5 % Eos % (Auto) 1.1 % Baso % (Auto) 0.5 % Neut # (Auto) 6.04 (1.40-6.50) K/uL Lymph # (Auto) 1.09 L (1.20-3.40) K/uL [place] # (Auto) 0.11 (0.11-0.59) K/uL Eos # (Auto) 0.08 (0.00-0.50) K/uL Baso # (Auto) 0.04 (0.00-0.20) K/uL Immature Gran # (Auto) 0.06 (0.01-0.20) K/uL PT 10.3 (9.0-12.0) Seconds INR 0.9 (0.9-1.1) APTT 26 (21-31) Seconds PTT Ratio 1.0 VBG pH 7.40 (7.36-7.41) VBG pCO2 40 (38-50) mmHg VBG pO2 26 mmHg VBG HCO3 25 mmol/L VBG O2 Saturation < 60.0 % VBG Base Excess 0 mEq/L Sodium 134 L (136-145) mmol/L Potassium 4.6 (3.5-5.1) mmol/L Chloride 102 (98-107) mmol/L Carbon Dioxide 26 (21-32) mmol/L Anion Gap 6 (3-11) BUN 51 H (6-23) mg/dl Creatinine 1.75 H (0.6-1.4) mg/dl Est Cr Clr Drug Dosing Not Reportable eGFR 39.61 BUN/Creatinine Ratio 29.1 H (10-20) Glucose 175 H (70-99(Fasting)) mg/dl Lactate 1.7 (0.4-2.0) mmol/L Calcium 10.1 (8.6-10.3) mg/dl Magnesium 2.3 (1.7-2.4) mg/dl Total Bilirubin 0.8 (0.2-1.0) mg/dl AST 16 (13-39) U/L ALT 15 (7-52) U/L Alkaline Phosphatase 68 (34-104) U/L Total Creatine Kinase 41 (30-223) U/L Troponin I High Sens 27.3 H (0-20) pg/ml B-Natriuretic Peptide (0-100) pg/ml Total Protein 6.8 (6.0-8.3) gm/dl Albumin 3.8 (3.4-5.0) gm/dl Globulin 3.0 (2.5-4.0) gm/dl Albumin/Globulin Ratio 1.3 (0.9-2) Procalcitonin 0.12 (0-0.5) ng/ml Adenovirus (PCR) Not Detected (NotDetected) B. pertussis DNA (PCR) Not Detected (NotDetected) B.parapertussis DNA PCR Not Detected (NotDetected) C. pneumoniae DNA (PCR) Not Detected (NotDetected) Coronavirus OC43 (PCR) Not Detected (NotDetected) Coronavirus HKU1 (PCR) Not Detected (NotDetected) Coronavirus 229E (PCR) Not Detected (NotDetected) SARS-CoV-2 (PCR) NEGATIVE Not Detected (Negative) Coronavirus NL63 (PCR) Not Detected (NotDetected) Human Metapneumovir PCR Not Detected (NotDetected) Influenza Type A (PCR) Negative Not Detected (Neg) Influenza Type B (PCR) Negative Not Detected (Neg) M. pneumoniae (PCR) Not Detected (NotDetected) Parainfluenza 1 (PCR) Not Detected (NotDetected) Parainfluenza 2 (PCR) Not Detected (NotDetected) Parainfluenza 3 (PCR) Not Detected (NotDetected) Parainfluenza 4 (PCR) Not Detected (NotDetected) RSV (RT-PCR) Negative (Neg) RSV (PCR) Not Detected (NotDetected) Entero/Rhino (PCR) Not Detected (NotDetected) 03/31/24 Range/Units 19:00 WBC (4.8-10.8) K/ul RBC (4.70-6.10) M/uL Hgb (14.0-18.0) g/dl Hct (42.0-52.0) % MCV (80.0-100.0) fL MCH (25.0-34.0) pg MCHC (32.0-36.0) g/dL RDW Std Deviation (36.4-46.3) fL RDW Coeff of Jono (11.5-14.5) % Plt Count (130-400) K/uL MPV (9.4-12.4) fL Immature Gran % (Auto) % Neut % (Auto) % Lymph % (Auto) % [place] % (Auto) % Eos % (Auto) % Baso % (Auto) % Neut # (Auto) (1.40-6.50) K/uL Lymph # (Auto) (1.20-3.40) K/uL [place] # (Auto) (0.11-0.59) K/uL Eos # (Auto) (0.00-0.50) K/uL Baso # (Auto) (0.00-0.20) K/uL Immature Gran # (Auto) (0.01-0.20) K/uL PT (9.0-12.0) Seconds INR (0.9-1.1) APTT (21-31) Seconds PTT Ratio VBG pH (7.36-7.41) VBG pCO2 (38-50) mmHg VBG pO2 mmHg VBG HCO3 mmol/L VBG O2 Saturation % VBG Base Excess mEq/L Sodium (136-145) mmol/L Potassium (3.5-5.1) mmol/L Chloride (98-107) mmol/L Carbon Dioxide (21-32) mmol/L Anion Gap (3-11) BUN (6-23) mg/dl Creatinine (0.6-1.4) mg/dl Est Cr Clr Drug Dosing eGFR BUN/Creatinine Ratio (10-20) Glucose (70-99(Fasting)) mg/dl Lactate (0.4-2.0) mmol/L Calcium (8.6-10.3) mg/dl Magnesium (1.7-2.4) mg/dl Total Bilirubin (0.2-1.0) mg/dl AST (13-39) U/L ALT (7-52) U/L Alkaline Phosphatase (34-104) U/L Total Creatine Kinase (30-223) U/L Troponin I High Sens 25.5 H (0-20) pg/ml B-Natriuretic Peptide 131 H (0-100) pg/ml Total Protein (6.0-8.3) gm/dl Albumin (3.4-5.0) gm/dl Globulin (2.5-4.0) gm/dl Albumin/Globulin Ratio (0.9-2) Procalcitonin (0-0.5) ng/ml Adenovirus (PCR) (NotDetected) B. pertussis DNA (PCR) (NotDetected) B.parapertussis DNA PCR (NotDetected) C. pneumoniae DNA (PCR) (NotDetected) Coronavirus OC43 (PCR) (NotDetected) Coronavirus HKU1 (PCR) (NotDetected) Coronavirus 229E (PCR) (NotDetected) SARS-CoV-2 (PCR) (Negative) Coronavirus NL63 (PCR) (NotDetected) Human Metapneumovir PCR (NotDetected) Influenza Type A (PCR) (Neg) Influenza Type B (PCR) (Neg) M. pneumoniae (PCR) (NotDetected) Parainfluenza 1 (PCR) (NotDetected) Parainfluenza 2 (PCR) (NotDetected) Parainfluenza 3 (PCR) (NotDetected) Parainfluenza 4 (PCR) (NotDetected) RSV (RT-PCR) (Neg) RSV (PCR) (NotDetected) Entero/Rhino (PCR) (NotDetected) Imaging Data Radiologist's Impression: Abdomen/Pelvis CT 03/31/24 17:07 EXAMINATION: CT of the abdomen and pelvis performed without contrast TECHNIQUE: Helical CT images from the lung bases through the symphysis pubis were obtained without contrast. Coronal and sagittal reformatted images were generated at a workstation for further assessment. Dose reduction techniques were achieved by using automatic exposure control and/or adjustment of mA and/or kV according to patient size and/or use of iterative reconstruction technique. COMPARISON: None HISTORY: Trauma FINDINGS: Lower chest: There is a small left basilar pleural effusion seen. Mild scattered areas of patchy groundglass and small nodular opacity throughout the lung bases in the right middle lobe. Liver: No suspicious liver lesions. Gallbladder: Punctate gallstone seen at the neck. No evidence of acute cholecystitis. Spleen: Normal size. Pancreas: No suspicious pancreatic lesions. The pancreatic duct is not dilated. Adrenal glands: No adrenal nodules. Kidneys: No hydronephrosis or obstructing renal stones. There is an 8 mm lesion at the inferior pole of the left kidney which is high in attenuation, most consistent with a hemorrhagic/proteinaceous cyst. Otherwise no additional visualized masses seen on this noncontrast CT. Bladder / Pelvic organs: Unremarkable. Bowel: No bowel obstruction. No abnormal bowel wall thickening. The appendix is unremarkable. Left colonic diverticulosis without evidence for diverticulitis. There is a large colonic stool burden. Lymph nodes: No retroperitoneal, mesenteric, or pelvic lymphadenopathy. Peritoneum / Retroperitoneum: No free fluid or air within the abdomen. Vessels: No infrarenal aortic aneurysm. Heavy aortoiliac calcification. Bones and soft tissues: No suspicious lesion in the bones. L5-S1 fixation changes. Small fat-containing inguinal hernias. IMPRESSION: No evidence for an acute traumatic abnormality of the abdomen or pelvis. Patchy groundglass and nodular densities in the right middle lobe and lower lungs, appear infectious. There is a small left pleural effusion. Electronically signed by Carlo Pierson 03-31-2024 7:23 PM Chest X-Ray 03/31/24 17:07 INDICATION: Chest pain. TECHNIQUE: Frontal radiograph of the chest. COMPARISON: Radiograph from 07/28/2024. FINDINGS: Cardiomegaly. Mild pulmonary vascular congestion. Chronic appearing left upper/lower lobe opacities and left pleural effusion. Findings unchanged from prior. No pneumothorax. No acute fracture. IMPRESSION: Mild pulmonary vascular congestion. Chronic appearing left upper/lower lobe opacities and left pleural effusion. Findings unchanged from prior. Electronically signed by Dung Mendoza 03-31-2024 5:[address] 03/31/24 17:16 CT cervical spine without IV contrast History: Trauma Comparison: None Technique: Using multidetector thin collimation helical acquisition technique, axial, coronal and sagittal CT images through the cervical spine were obtained without intravenous contrast. Dose reduction techniques were achieved by using automatic exposure control and/or adjustment of mA and/or kV according to patient size and/or use of iterative reconstruction technique. Findings: The cervical vertebrae are normally aligned. Straightened cervical lordosis. No acute fracture or subluxation. No prevertebral edema. Mild multilevel discogenic and facet degenerative changes. There is moderate atlantodental degenerative change. No abnormality of the paraspinous soft tissues. The lungs appear emphysematous. A left pleural effusion is partially seen. Impression: No acute fracture or traumatic subluxation. A left pleural effusion is partially seen at the left lung apex. Electronically signed by Carlo Pierson 03-31-2024 7:[address] 03/31/24 17:16 CT head without contrast History: Trauma Comparison: None Technique: Using multidetector thin collimation helical acquisition technique, axial, coronal and sagittal CT images from the skull base to the vertex were obtained without intravenous contrast. Dose reduction techniques were achieved by using automatic exposure control and/or adjustment of mA and/or kV according to patient size and/or use of iterative reconstruction technique. Findings: No intracranial hemorrhage, mass-effect, or midline shift. The ventricles are proportionate to the cerebral sulci. The grey to white matter differentiation of the cerebral hemispheres is preserved. The basal cisterns are patent. There is moderate cerebral atrophy. Moderate, patchy low-attenuation changes in the white matter, most suggestive of sequelae of chronic small vessel ischemic disease. The visualized paranasal sinuses are clear. Mastoid air cells are clear. Impression: No acute intracranial pathology. Electronically signed by Carlo Pierson 03-31-2024 7:23 PM ECG Data Attestation: I personally reviewed and interpreted this ECG as follows: Rate (beats per minute): 89 Rhythm: + normal sinus ECG Intervals/blocks: + Normal QRS, + Normal AK and + Normal QT-c ECG ST segments: + Normal ST segments [facility] Narrative 1707: The patient was evaluated in room . A complete history and physical exam was performed Cardiac monitoring: An order was placed for continuous cardiac monitoring. The monitor shows a rate of 90 with sinus rhythm interpreted by me 1900: Patient came hypoxic on room air. Supplemental oxygen applied which improved the patient's oxygen saturation. 2006: Vital signs stable supplemental oxygen via nasal cannula. Labs show normal white blood cell count. VBG and coagulation studies within normal limits. Creatinine at baseline 1.75. Procalcitonin lactic acid and BioFire negative. Chest x-ray shows pulmonary vascular congestion with chronic appearing left upper and lower lobe opacities and left-sided pleural effusion. CT abdomen pelvis shows groundglass nodular densities right middle and lower lobe that appear to be infectious. Patient's BNP is mildly elevated 131. Given the patient's history of breathing no compromise secondary to chemo patient will treat with Zosyn. Discussed case with [facility] hospitalist Dr. Montes who will evaluate patient for admission. Impression & Plan Hypoxia, Pneumonia Discharge Plan Visit Data Chief Complaint: Illness Stated Complaint: CX PT, PAIN LEVEL IN BODY, NAUSEA, NOT EATING ED Provider: Eliseo Phillip Discharge Problem: Hypoxia, Pneumonia Patient Disposition: Admitted As Inpatient Forms Stand Alone Forms: My [facility] Prescriptions Prescriptions: No Action Breo Ellipta 50-25 mcg/dose blister with device 1 inh inhalation DAILY (DME) CPAP Machine Misc See Rx Instructions .ROUTE .MEDSUPPLY Qty: 1 0RF Rx Instructions: Auto CPAP 5-17 cmH2O; heated humidification; capable of collecting AHI and compliance data with modem; duration use 99 years (DME) CPAP Supplies Misc See Rx Instructions .ROUTE .MEDSUPPLY Qty: 1 0RF Rx Instructions: tubing, filters, all appropriate supplies; mask fit benzonatate 200 mg capsule 200 mg PO Q8H PRN (Reason: cough) insulin degludec [Tresiba FlexTouch U-100] 100 unit/mL (3 mL) insulin pen 34 unit SUBCUT QAM insulin aspart U-100 [Novolog FlexPen U-100 Insulin] 100 unit/mL (3 mL) insulin pen 10 unit subcut AC Rx Instructions: Inject 10 units prior to meals as directed Linzess 290 mcg capsule 290 mcg PO DAILY nitroglycerin [Nitrostat] 0.4 mg tablet, sublingual 0.4 mg sublingual Q5M PRN (Reason: Chest Pain) Rx Instructions: 1 tablet SL as needed for chest pain. DO NOT EXCEED 3 tablets in 15 minutes. Call 911 for any unrelieved chest pain. pantoprazole [Protonix] 40 mg tablet,delayed release (DR/EC) 40 mg PO BID citalopram [Celexa] 40 mg tablet 60 mg PO QAM Patient Comments: Take 1 and 1/2 tablets daily by mouth for a total of 40 MG. (DME) CPAP Machine Misc See Rx Instructions .ROUTE .MEDSUPPLY Qty: 1 0RF Rx Instructions: INCREASE CPPAP TO 12 CMS TO OPAL HOME albuterol sulfate [Ventolin HFA] 90 mcg/actuation HFA aerosol inhaler 2 puffs INH Q6H PRN (Reason: shortness of breath or wheezing) Qty: 8.5 5RF rosuvastatin [Crestor] 20 mg tablet 20 mg PO QAM Humulin N NPH Insulin KwikPen 100 unit/mL (3 mL) insulin pen 15 unit subcut .COMPLEX Qty: 15 3RF Rx Instructions: Inject 15 units first thing with steroid treatment. aspirin 325 mg Tablet 325 mg PO DAILY clopidogrel 75 mg tablet 75 mg PO DAILY ondansetron 8 mg tablet,disintegrating 8 mg PO Q8 PRN (Reason: N/V) oxycodone 5 mg tablet 5 mg PO .EVERY 4-6 HRS PRN (Reason: Pain) gabapentin 800 mg tablet 800 mg PO TID magnesium oxide 400 mg magnesium tablet 400 mg PO DAILY Qty: 14 0RF Referrals Referrals: Maria M Reese CRNP [Primary Care Provider] - Discharge Problem: Pneumonia Qualifiers: Pneumonia type: due to unspecified organism Laterality: right Lung location: u nspecified part of lung Qualified Code(s): J18.9 - Pneumonia, unspecified organism
[2024-03-31] MEDS: PIPERACILLIN/TAZOBACTAM 4.5 GM/120 ML BAG IV ONE (20:16)
--- NOTE | 2024-03-31 20:25 | History & Physical Report ---
Date of Service March 31, 2024 Assessment & Plan (1) Diffuse pain: Plan: 78yo male with history of metastatic adenocarcinoma of the lung currently on chemotherapy with Carboplatin, Paclitaxel and Pembrolizumab presenting with diffuse body pain, persistent despite PO Oxycodone taken at home. Patient has experienced similar pain in the past - thought likely due to his chemotherapy treatment. Typically occurs every other month. Some improvement with IV morphine given in the ER. -Admit to Medical -Morphine 2-4mg IV q 3 hours as needed for pain management -Zofran PRN nausea -Narcan available for accidental overdose -Docusate/Senna and Miralax available for bowel management -Continue Gabapentin -Tylenol PRN (2) Metastatic lung cancer (metastasis from lung to other site): Plan: Patient follows with Oncology - on active chemotherapy. Question of possible pneumonitis given his ongoing SOB and cough. His Cycle 3 of treatment was recently held and he was treated with steroids. -Oncology consultation appreciated -Continue Zosyn for now due to concern for possible PNA noted on imaging - patchy groundglass and nodular densities in the RML and lower lungs ?infection. ?inflammation possible given chemo tx? (3) DM type 2 (diabetes mellitus, type 2): Plan: Chronic. Last [id number]=2.9 on 01/21/24. Patient with variable blood sugars - response to the steroids he receives with chemotherapy. He has been seen by [facility] for this issue on 03/23/24. -Lantus 12u BID with ISS -Goal blood sugar 110 - 140 Plan Chronic Medical Issues: COPD -Continue Breo-Ellipta -Continue Albuterol PRN -Continue Tessalon PRN JAY -Continue CPAP Hyperlipidemia -Continue Crestor 20mg po daily GERD -Continue Protonix 40mg po BID Depression -Continue Citalopram 60mg po qAM F/E/N - NSS at 80mL/hr x 1L Ppx - Lovenox 40u Code - Full per discussion with patient Dispo - Admit to medical History of Present Illness Chief Complaint: diffuse body pain Primary Care Provider: ISSAC Villarreal Robson Alvarez is a 78yo male with history of DM, HTN, HLP, COPD. He has a history of metastatic adenocarcinoma of the lung and is currently receiving Carboplatin, Paclitaxel and Pembrolizumab. He follows with Dr. Ajala of Oncology. Patient presents today with diffuse, severe body pain. He reports pain involves his bones, joints, muscles. Has been severe 12/04, ongoing since 03/27/24. He has not been able to eat, sleep or ambulate. He has been taking Oxycodone 10mg po q 4 hours at home with no improvement in pain. Additionally reports chills, nausea and constipation as well as persistent cough productive for clear/yellow sputum and some shortness of breath. Patient has had similar pain in the past. He and his reports that he develops similar symptoms approximately once every other month. They are uncertain how the pain temporally relates to his chemotherapy treatments. No fever, abdominal pain, vomiting or diarrhea. In the ER patient hypoxic requiring placement of supplemental O2. Did receive some relief with IV Morphine administered in the ER. ER Course: Morphine Zosyn NSS Protonix 40mg PO Gabapentin 800mg PO Allergies Allergy/AdvReac Type Severity Reaction Status Date / Time adhesive Allergy Mild Silk/plastic Verified 03/23/24 09:58 adhesive tape (redness, blistering) Sulfa (Sulfonamide AdvReac Intermediate nausea & Verified 03/23/24 09:58 Antibiotics) vomiting Home Medications Medication Instructions Recorded Confirmed Type pantoprazole 40 mg tablet,delayed 40 mg PO BID 12/23/18 03/23/24 History release (Protonix) CPAP Machine #1 04/22/19 03/23/24 Rx CPAP Supplies #1 04/22/19 03/23/24 Rx CPAP Machine #1 08/10/19 03/23/24 Rx albuterol sulfate 90 mcg/actuation 2 puffs inhalation Q6H PRN 08/10/19 03/23/24 Rx aerosol inhaler (Ventolin HFA) shortness of breath or wheezing #8.5 grams rosuvastatin 20 mg tablet (Crestor) 20 mg PO QAM 09/06/20 03/23/24 History citalopram 40 mg tablet (Celexa) 60 mg PO QAM 04/04/21 03/23/24 History aspirin 325 mg tablet 325 mg PO DAILY 07/27/21 03/23/24 History benzonatate 200 mg capsule 200 mg PO Q8H PRN cough 01/08/23 03/23/24 History insulin aspart U-100 100 unit/mL 10 unit subcut AC 01/08/23 03/23/24 History (3 mL) subcutaneous pen (Novolog FlexPen U-100 Insulin aspart) insulin degludec 100 unit/mL (3 34 unit subcut QAM diabetes 01/08/23 03/23/24 History mL) subcutaneous pen (Tresiba FlexTouch U-100 insulin) linaclotide 290 mcg capsule 290 mcg PO DAILY 01/08/23 03/23/24 History (Linzess) nitroglycerin 0.4 mg sublingual 0.4 mg sublingual Q5M PRN Chest 01/08/23 03/23/24 History tablet (Nitrostat) Pain fluticasone furoate 50 1 inh inhalation DAILY 07/30/23 03/23/24 History mcg-vilanterol 25 mcg/dose inhalation powder (Breo Ellipta) clopidogrel 75 mg tablet 75 mg PO DAILY 02/28/24 03/23/24 History gabapentin 800 mg tablet 800 mg PO TID 02/28/24 03/23/24 History ondansetron 8 mg disintegrating 8 mg PO Q8 PRN N/V 02/28/24 03/23/24 History tablet oxycodone 5 mg tablet 5 mg PO .EVERY 4-6 HRS PRN Pain 02/28/24 03/23/24 History magnesium oxide 400 mg PO DAILY #14 tabs 03/01/24 03/23/24 Rx insulin NPH isoph U-100 human 100 15 unit (0.15 mL) subcut .COMPLEX 03/23/24 03/23/24 Rx unit/mL (3 mL) subcutaneous pen #15 mL (Humulin N NPH U-100 Insulin KwikPen) Past Med/Surg History Problem List (Updated 04/01/24 @ 01:06 by Karly Montes DO) Diffuse pain Pneumonia (Acute) Hypoxia (Acute) Hypercalcemia Hypoglycemia (Acute) Pain in right testicle (Acute) Testicular pain, right Metastatic lung cancer (metastasis from lung to other site) Lesion of adrenal gland Anemia Vitamin D deficiency Stage 3b chronic kidney disease Constipation JAY on CPAP Neurogenic claudication due to lumbar spinal stenosis Tobacco use Hypomagnesemia Elevated troponin Hypervolemia LUQ abdominal pain (Acute) Hypoxia (Acute) Leukocytosis (Acute) Pneumonia (Acute) Vomiting (Acute) Hypertension (Acute) Acute kidney injury (Acute) Acidosis, lactic (Acute) Acute hypotension (Acute) Acute dehydration (Acute) Solitary pulmonary nodule (Chronic) Depression Chest pain Lung cancer Stroke Immediately after spinal fusion 04/2019---went into kidney failure at the same time > only deficit is sometimes he "dribbles out of the left side of his mouth" Peripheral arterial occlusive disease "total occlusion of the SFA and the left mid thigh area with reconstitution with collaterals and monophasic flow bilateral below knee area" per cardiology office visit note 03/2019 Hyperlipidemia GERD (gastroesophageal reflux disease) controlled DM type 2 (diabetes mellitus, type 2) CAD (coronary artery disease) angioplasty/KARRIE to pRCA (2014) Synergy stent (11/03/2020) after failed stress test Chronic obstructive pulmonary disease CKD (chronic kidney disease), stage III Pulmonary nodule 1 cm or greater in diameter (Chronic 08/25/20) Medical History Acute and chronic respiratory failure with hypercapnia Hyperkalemia Urinary retention Hypoxia Somnolence Arthritis Urinary problem urinary hesitancy Spinal stenosis Diabetes IDDM Sleep apnea awaiting CPAP Hypertension Carotid arterial disease "no ICA stenosis.. severe left ECA stenosis" per cardiology office visit note 03/2019 > follows with Dr. Reyes in [place] Interstitial lung disease Surgical History History of elbow surgery right History of melanoma excision History of lumbar spinal fusion L5-S1 decompression/fusion (09/17/19): Grade view 2, Glidescope#3, ETT 8.0 at [facility] Status post lumbar surgery History of arthroscopy of right shoulder History of colonoscopy History of tonsillectomy History of hernia surgery X2 History of thumb surgery R/L History of repair of left rotator cuff History of cardiac cath stent x1 (2014) Synergy stent x1 (11/03/2020) Family History Mother Diabetes Heart disease Cancer Lung cancer Father Cancer Oral cancer Other No family history of adverse response to anesthesia Social History Smoking Status: Current every day smoker Tobacco Type: Cigarettes Cigarettes Per Day: A pack; Second Hand Exposure: No; Do You Dip or Chew Tobacco: No; Tobacco Cessation Education Requested by Patient: No Hx Alcohol Use: No Hx Substance Use: No Preferred Language: Jamaican Communication Ability: Effective Visual Impairment: No Limitations Hearing Ability: Normal Storage Architect Required: No Beliefs That Will Affect Care: None Current Living Situation: Spouse Current Living Situation Comment: Home current occupational status: retired Other Information That Helps Us Care for You: No Feels Safe at Home: Yes Childhood Exposure to Second-Hand Smoke: Yes Diet Comment: food choices with less carbs, uses sugar substitute Assistive Devices: None Review of Systems Review of Systems: All systems reviewed & are unremarkable except as noted in HPI & below Physical Exam Physical Exam: General: patient in moderate distress secondary to pain, unable to get comfortable in the bed Skin: warm, dry, intact, no rashes or lesions HEENT: NC/AT, PERRL, EOMI, anicteric sclera, conjunctiva without injection, external ear normal to inspection and nontender, nares patent, moist mucus membranes, dentition intact, no oropharyngeal lesions, neck supple, trachea midline, no LAD, no thyromegaly, no JVD Heart: +S1/S2, regular, no m/r/g Lungs: equal air entry bilaterally, no rales/rhonchi/wheezes Abd: +BS, soft, NT/ND, no masses/organomegaly/ascites Ext: warm, 2+ pulses in UE/LE bilaterally, no clubbing/cyanosis or edema Neuro: nonfocal, patient AA&O x 4, speech intact, no facial droop, moving all extremities on command with equal strength 5/5 Results & Data Results & Data Vital Signs (Past 12 Hours) Vital Signs Temp Pulse Pulse Resp BP BP Pulse Ox 03/31/24 19:03 84 20 138/66 96 03/31/24 18:11 93 03/31/24 18:11 85 L 03/31/24 18:01 80 03/31/24 17:17 77 18 130/76 93 03/31/24 16:33 37.1 C 88 18 97/58 L 96 O2 Del Method O2 Flow Rate 03/31/24 19:03 Nasal Cannula 3 03/31/24 18:11 Nasal Cannula 3 03/31/24 18:11 Room Air 03/31/24 18:01 03/31/24 17:17 Room Air 03/31/24 16:33 Room Air Laboratory Results Laboratory Results WBC 7.42 K/ul (4.8-10.8) 02/04/25 16:48 RBC 3.62 M/uL (4.70-6.10) L 03/31/24 16:48 Hgb 11.7 g/dl (14.0-18.0) L 03/31/24 16:48 Hct 34.4 % (42.0-52.0) L 03/31/24 16:48 MCV 95.0 fL (80.0-100.0) 03/31/24 16:48 MCH 32.3 pg (25.0-34.0) 03/31/24 16:48 MCHC 34.0 g/dL (32.0-36.0) 03/31/24 16:48 RDW Std Deviation 55.0 fL (36.4-46.3) H 03/31/24 16:48 RDW Coeff of Jono 15.7 % (11.5-14.5) H 03/31/24 16:48 Plt Count 175 K/uL (130-400) 03/31/24 16:48 MPV 10.2 fL (9.4-12.4) 03/31/24 16:48 Immature Gran % (Auto) 0.8 % 03/31/24 16:48 Neut % (Auto) 81.4 % 03/31/24 16:48 Lymph % (Auto) 14.7 % 03/31/24 16:48 Gila % (Auto) 1.5 % 03/31/24 16:48 Eos % (Auto) 1.1 % 03/31/24 16:48 Baso % (Auto) 0.5 % 03/31/24 16:48 Neut # (Auto) 6.04 K/uL (1.40-6.50) 03/31/24 16:48 Lymph # (Auto) 1.09 K/uL (1.20-3.40) L 03/31/24 16:48 Gila # (Auto) 0.11 K/uL (0.11-0.59) 03/31/24 16:48 Eos # (Auto) 0.08 K/uL (0.00-0.50) 03/31/24 16:48 Baso # (Auto) 0.04 K/uL (0.00-0.20) 03/31/24 16:48 Immature Gran # (Auto) 0.06 K/uL (0.01-0.20) 03/31/24 16:48 PT 10.3 Seconds (9.0-12.0) 03/31/24 16:48 INR 0.9 (0.9-1.1) 03/31/24 16:48 APTT 26 Seconds (21-31) 03/31/24 16:48 PTT Ratio 1.0 03/31/24 16:48 VBG pH 7.40 (7.36-7.41) 03/31/24 17:25 VBG pCO2 40 mmHg (38-50) 03/31/24 17:25 VBG pO2 26 mmHg 03/31/24 17:25 VBG HCO3 25 mmol/L 03/31/24 17:25 VBG O2 Saturation < 60.0 % 03/31/24 17:25 VBG Base Excess 0 mEq/L 03/31/24 17:25 Sodium 134 mmol/L (136-145) L 03/31/24 16:48 Potassium 4.6 mmol/L (3.5-5.1) 03/31/24 16:48 Chloride 102 mmol/L (98-107) 03/31/24 16:48 Carbon Dioxide 26 mmol/L (21-32) 03/31/24 16:48 Anion Gap 6 (3-11) 03/31/24 16:48 BUN 51 mg/dl (6-23) H 03/31/24 16:48 Creatinine 1.75 mg/dl (0.6-1.4) H 03/31/24 16:48 Est Cr Clr Drug Dosing Not Reportable 03/31/24 16:48 eGFR 39.61 03/31/24 16:48 BUN/Creatinine Ratio 29.1 (10-20) H 03/31/24 16:48 Glucose 175 mg/dl (70-99(Fasting)) H 03/31/24 16:48 POC Glucose 147 mg/dl (70-99) H 03/31/24 22:11 Lactate 1.7 mmol/L (0.4-2.0) 03/31/24 17:25 Calcium 10.1 mg/dl (8.6-10.3) 03/31/24 16:48 Phosphorus 3.4 mg/dl (2.5-4.9) 03/31/24 22:36 Magnesium 2.3 mg/dl (1.7-2.4) 03/31/24 16:48 Total Bilirubin 0.8 mg/dl (0.2-1.0) 03/31/24 16:48 AST 16 U/L (13-39) 03/31/24 16:48 ALT 15 U/L (7-52) 03/31/24 16:48 Alkaline Phosphatase 68 U/L (34-104) 03/31/24 16:48 Total Creatine Kinase 41 U/L (30-223) 03/31/24 16:48 Troponin I High Sens 25.1 pg/ml (0-20) H 03/31/24 22:36 B-Natriuretic Peptide 131 pg/ml (0-100) H 03/31/24 19:00 Total Protein 6.8 gm/dl (6.0-8.3) 03/31/24 16:48 Albumin 3.8 gm/dl (3.4-5.0) 03/31/24 16:48 Globulin 3.0 gm/dl (2.5-4.0) 03/31/24 16:48 Albumin/Globulin Ratio 1.3 (0.9-2) 03/31/24 16:48 Procalcitonin 0.12 ng/ml (0-0.5) 03/31/24 16:48 Urine Color Yellow 04/01/24 00:31 Urine Appearance Clear (Clear) 04/01/24 00:31 Urine pH 6.0 (4.5-7.5) 04/01/24 00:31 Ur Specific [place]y 1.018 (1.000-1.030) 04/01/24 00:31 Urine Protein 2+ (Negative) H 04/01/24 00:31 Urine Glucose (UA) Negative (Negative) 04/01/24 00:31 Urine Ketones Negative (Negative) 04/01/24 00: Urine Blood Negative (Negative) 04/01/24 00: Urine Nitrite Negative (Negative) 04/01/24 00:31 Urine Bilirubin Negative (Negative) 04/01/24 00:31 Urine Urobilinogen Negative (Negative) 04/01/24 00:31 Ur Leukocyte Esterase Negative (Negative) 04/01/24 00:31 Urine WBC (Auto) 0-5 /hpf (0-5) 04/01/24 00:31 Urine RBC (Auto) 0-2 /hpf (0-2) 04/01/24 00:31 U Hyaline Cast (Auto) 0-2 /lpf (0-2) 04/01/24 00:31 U Epithel Cells (Auto) 0-2 /hpf (0-2) 04/01/24 00:31 Urine Bacteria (Auto) None Seen (None Seen) 04/01/24 00:31 Adenovirus (PCR) Not Detected (NotDetected) 03/31/24 17:25 B. pertussis DNA (PCR) Not Detected (NotDetected) 03/31/24 17:25 B.parapertussis DNA PCR Not Detected (NotDetected) 03/31/24 17:25 C. pneumoniae DNA (PCR) Not Detected (NotDetected) 03/31/24 17:25 Coronavirus OC43 (PCR) Not Detected (NotDetected) 03/31/24 17:25 Coronavirus HKU1 (PCR) Not Detected (NotDetected) 03/31/24 17:25 Coronavirus 229E (PCR) Not Detected (NotDetected) 03/31/24 17:25 SARS-CoV-2 (PCR) Not Detected (NotDetected) 03/31/24 17:25 Coronavirus NL63 (PCR) Not Detected (NotDetected) 03/31/24 17:25 Human Metapneumovir PCR Not Detected (NotDetected) 03/31/24 17:25 Influenza Type A (PCR) Not Detected (NotDetected) 03/31/24 17:25 Influenza Type B (PCR) Not Detected (NotDetected) 03/31/24 17:25 M. pneumoniae (PCR) Not Detected (NotDetected) 03/31/24 17:25 Parainfluenza 1 (PCR) Not Detected (NotDetected) 03/31/24 17:25 Parainfluenza 2 (PCR) Not Detected (NotDetected) 03/31/24 17:25 Parainfluenza 3 (PCR) Not Detected (NotDetected) 03/31/24 17:25 Parainfluenza 4 (PCR) Not Detected (NotDetected) 03/31/24 17:25 RSV (RT-PCR) Negative (Neg) 03/31/24 16:47 RSV (PCR) Not Detected (NotDetected) 03/31/24 17:25 Entero/Rhino (PCR) Not Detected (NotDetected) 03/31/24 17:25 Impressions Abdomen/Pelvis CT 03/31/24 17:07 EXAMINATION: CT of the abdomen and pelvis performed without contrast TECHNIQUE: Helical CT images from the lung bases through the symphysis pubis were obtained without contrast. Coronal and sagittal reformatted images were generated at a workstation for further assessment. Dose reduction techniques were achieved by using automatic exposure control and/or adjustment of mA and/or kV according to patient size and/or use of iterative reconstruction technique. COMPARISON: None HISTORY: Trauma FINDINGS: Lower chest: There is a small left basilar pleural effusion seen. Mild scattered areas of patchy groundglass and small nodular opacity throughout the lung bases in the right middle lobe. Liver: No suspicious liver lesions. Gallbladder: Punctate gallstone seen at the neck. No evidence of acute cholecystitis. Spleen: Normal size. Pancreas: No suspicious pancreatic lesions. The pancreatic duct is not dilated. Adrenal glands: No adrenal nodules. Kidneys: No hydronephrosis or obstructing renal stones. There is an 8 mm lesion at the inferior pole of the left kidney which is high in attenuation, most consistent with a hemorrhagic/proteinaceous cyst. Otherwise no additional visualized masses seen on this noncontrast CT. Bladder / Pelvic organs: Unremarkable. Bowel: No bowel obstruction. No abnormal bowel wall thickening. The appendix is unremarkable. Left colonic diverticulosis without evidence for diverticulitis. There is a large colonic stool burden. Lymph nodes: No retroperitoneal, mesenteric, or pelvic lymphadenopathy. Peritoneum / Retroperitoneum: No free fluid or air within the abdomen. Vessels: No infrarenal aortic aneurysm. Heavy aortoiliac calcification. Bones and soft tissues: No suspicious lesion in the bones. L5-S1 fixation changes. Small fat-containing inguinal hernias. IMPRESSION: No evidence for an acute traumatic abnormality of the abdomen or pelvis. Patchy groundglass and nodular densities in the right middle lobe and lower lungs, appear infectious. There is a small left pleural effusion. Electronically signed by Carlo Pierson 03-31-2024 7:23 PM Chest X-Ray 03/31/24 17:07 INDICATION: Chest pain. TECHNIQUE: Frontal radiograph of the chest. COMPARISON: Radiograph from 07/28/2024. FINDINGS: Cardiomegaly. Mild pulmonary vascular congestion. Chronic appearing left upper/lower lobe opacities and left pleural effusion. Findings unchanged from prior. No pneumothorax. No acute fracture. IMPRESSION: Mild pulmonary vascular congestion. Chronic appearing left upper/lower lobe opacities and left pleural effusion. Findings unchanged from prior. Electronically signed by Dung Mendoza 03-31-2024 5:[address] 03/31/24 17:16 CT cervical spine without IV contrast History: Trauma Comparison: None Technique: Using multidetector thin collimation helical acquisition technique, axial, coronal and sagittal CT images through the cervical spine were obtained without intravenous contrast. Dose reduction techniques were achieved by using automatic exposure control and/or adjustment of mA and/or kV according to patient size and/or use of iterative reconstruction technique. Findings: The cervical vertebrae are normally aligned. Straightened cervical lordosis. No acute fracture or subluxation. No prevertebral edema. Mild multilevel discogenic and facet degenerative changes. There is moderate atlantodental degenerative change. No abnormality of the paraspinous soft tissues. The lungs appear emphysematous. A left pleural effusion is partially seen. Impression: No acute fracture or traumatic subluxation. A left pleural effusion is partially seen at the left lung apex. Electronically signed by Carlo Pierson 03-31-2024 7:[address] 03/31/24 17:16 CT head without contrast History: Trauma Comparison: None Technique: Using multidetector thin collimation helical acquisition technique, axial, coronal and sagittal CT images from the skull base to the vertex were obtained without intravenous contrast. Dose reduction techniques were achieved by using automatic exposure control and/or adjustment of mA and/or kV according to patient size and/or use of iterative reconstruction technique. Findings: No intracranial hemorrhage, mass-effect, or midline shift. The ventricles are proportionate to the cerebral sulci. The grey to white matter differentiation of the cerebral hemispheres is preserved. The basal cisterns are patent. There is moderate cerebral atrophy. Moderate, patchy low-attenuation changes in the white matter, most suggestive of sequelae of chronic small vessel ischemic disease. The visualized paranasal sinuses are clear. Mastoid air cells are clear. Impression: No acute intracranial pathology. Electronically signed by Carlo Pierson 03-31-2024 7:23 PM Code Status & VTE Plan VTE Prophylaxis Plan VTE Prophylaxis will be ordered: Yes PG Care Time/CCT Total # of Minutes Spent Total Time Spent with Patient: Total time spent is greater than 50% in coordination of care (as documented) at patient's floor/unit and/or counseling patient: Coding Level of Care Code 81019 INT INP/OBS CARE 3/75MIN Diagnoses Diffuse pain R52 Metastatic lung cancer (metastasis from lung to other site) C34.90 DM type 2 (diabetes mellitus, type 2) E11.9
[2024-03-31] MEDS: GABAPENTIN 800 MG TAB PO STA (20:34)
[2024-03-31] MEDS: PANTOprazole 40 MG TAB PO STA (20:34)
[2024-03-31] MEDS ORDERED: GLUCAGON FOR INJ 1 MG VIAL SQ PRN (22:02)
[2024-03-31] MEDS ORDERED: bisacodyL 10 MG SUPP PR PRN (22:02)
[2024-03-31] MEDS ORDERED: GLUCOSE 40% GEL 15 GM TUBE PO PRN (22:02)
[2024-03-31] MEDS ORDERED: GLUCOSE 10 TAB/TUBE PO PRN (22:02)
[2024-03-31] MEDS ORDERED: POLYETHYLENE (MIRALAX) 17 GM PACK PO PRN (22:02)
[2024-03-31] MEDS: INSULIN ASPART PER UNIT CHARGE SC SCH (22:41)
[2024-03-31] MEDS: LANTUS PER UNIT CHARGE SQ SCH (22:42)
[2024-03-31] MEDS: SODIUM CHLORIDE 0.9% 1,000 ML IV SCH (22:43)
[2024-03-31] MEDS: ENOXAPARIN INJ 40 MG/0.4 ML SYR SQ SCH (22:43)
[2024-03-31] MEDS: MoRPHine SULFATE 4 MG/ML 1 ML CARP\\VIAL IV PRN (22:51)
[2024-03-31 23:21] LABS: Phosphorus 3.4 mg/dl (2.5-4.9)
[2024-03-31] MEDS: Continuous Glucose Monitor SCH (23:23)
[2024-03-31 23:27] LABS: Troponin I High Sensitivity 25.1 pg/ml (0-20)
[2024-04-01 00:43] LABS: Appearance Urine Clear (Clear); Bacteria Urine Automated None Seen (None Seen); Bilirubin Urine Negative (Negative); Blood Urine Negative (Negative); Cast Urine Automated 0-2 /lpf (0-2); Color Urine Yellow; Epithelial Cell Urine Auto 0-2 /hpf (0-2); Glucose Urine UA Negative (Negative); Ketones Urine Negative (Negative); Leukocyte Esterase Urine Negative (Negative); Nitrite Urine Negative (Negative); Protein Urine 2+ (Negative); RBC Urine Automated 0-2 /hpf (0-2); Specific Gravity Urine 1.018 (1.000-1.030); Urobilinogen Urine Negative (Negative); WBC Urine Automated 0-5 /hpf (0-5)
[2024-04-01] MEDS ORDERED: NALOXONE HCL 0.4 MG/1 ML VIAL/CARP IV PRN ×2 (01:10→01:12)
[2024-04-01] MEDS ORDERED: ALBUTEROL HFA 8 GM INHALER INH PRN (01:21)
[2024-04-01] MEDS: PIPERACILLIN/TAZOBACTAM 4.5 GM/100 ML BAG IV SCH (01:49)
[2024-04-01] MEDS: MoRPHine SULFATE 2 MG/ML CARP IV PRN (04:53)
[2024-04-01] MEDS: CARBOHYDRATES FOR HYPOGLYCEMIA PO PRN (06:34)
[2024-04-01] MEDS: DEXTROSE 50% 50 ML SYRINGE IV PRN (07:00)
[2024-04-01 07:02] LABS: Hematocrit (blood only) 28.9 % (42.0-52.0); Hemoglobin 9.5 g/dl (14.0-18.0); Mean Corpuscular Hemoglobin 32.2 pg (25.0-34.0); Mean Corpuscular Hgb Conc 32.9 g/dL (32.0-36.0); Platelet Count 123 K/uL (130-400); RDW Coefficient of Variation 15.9 % (11.5-14.5); RDW Standard Deviation 56.3 fL (36.4-46.3); Red Blood Count 2.95 M/uL (4.70-6.10); White Blood Count 3.15 K/ul (4.8-10.8)
[2024-04-01 07:23] LABS: BUN Creatinine Ratio 26.3 (10-20); Calcium 9.2 mg/dl (8.6-10.3); Creatinine Clr Calc Pharmacy 41.1 ml/min; Potassium 4.3 mmol/L (3.5-5.1)
[2024-04-01 07:29] LABS: Troponin I High Sensitivity 24.6 pg/ml (0-20)
[2024-04-01] MEDS: D5W AND NSS 1,000 ML IV SCH (07:32)
[2024-04-01] MEDS: CLOPIDOGREL BISULFATE 75 MG TAB PO SCH (08:06)
[2024-04-01] MEDS: LINACLOTIDE 145 MCG CAPSULE PO SCH (08:07)
[2024-04-01] MEDS: CITALOPRAM 20 MG TAB PO SCH (08:07)
[2024-04-01] MEDS: PANTOprazole 40 MG TAB PO SCH (08:07)
[2024-04-01] MEDS: ASPIRIN 325 MG ECTAB PO SCH (08:07)
[2024-04-01] MEDS: ROSUVASTATIN CALCIUM 20 MG TAB PO SCH (08:07)
[2024-04-01] MEDS: FLUTICASONE/VILANTEROL 100/25MCG 14 PUFFS/INHALER INH SCH (08:08)
[2024-04-01] MEDS: GABAPENTIN 800 MG TAB PO SCH (08:08)
[2024-04-01] MEDS: DOCUSATE SODIUM/SENNA 50/8.6MG TAB PO SCH (08:17)
[2024-04-01] MEDS: LANTUS PER UNIT CHARGE SQ SCH (08:17)
--- NOTE | 2024-04-01 08:44 | Electrocardiogram Report ---
Test Reason : Blood Pressure : */* mmHG Vent. Rate : 89 BPM Atrial Rate : 89 BPM P-R Int : 134 ms QRS Dur : 84 ms QT Int : 378 ms P-R-T Axes : 36 10 36 degrees QTcB Int : 459 ms Normal sinus rhythm Poor R wave progression, consider anterior ND vs. lead placement vs. LVH Abnormal ECG When compared with ECG of 28-Feb-2024 19:22, No significant change Confirmed by Hans Hernandez ([id number]) on 04/01/2024 8:44:22 AM Referred By: Clarisse Choudhury Confirmed By: Hans Hernandez
--- NOTE | 2024-04-01 09:03 | Oncology Consultation ---
Date of Consultation April 01, 2024 Assessment & Plan (1) Diffuse pain: (2) Pneumonia: (3) Hypoglycemia: (4) Metastatic lung cancer (metastasis from lung to other site): Plan Concerned that symptoms are due to immunotherapy -Recommend filgrastim 480mcg daily x 2-3 days (ANC>1000) -Check cortisol, ACTH level -Would start steroids 1g IV methylprednisolone daily after checking cortisol,ACTH level Thank you for this consult,will continue to follow while he is in the hospital History of Present Illness Reason for Consultation: Lung cancer Attending Physician: Forest Massey History of Present Illness 78 year old with metastatic lung cancer who received cycle 1 of pembrolizumab on 01/22/2024 and cycle 1 of carboplatin/paclitaxel on 01/29/2024. He received cycle 3 of treatment with carboplatin/paclitaxel on 03/26/2024. Pembrolizumab was held with cycle 3 due to concern for immunotherapy induced pneumonitis. He presented to ER with diffuse bone pain. Has been hypotensive, developed JAVED on CKD and is neutropenic Allergies Allergy/AdvReac Type Severity Reaction Status Date / Time adhesive Allergy Mild Silk/plastic Verified 03/23/24 09:58 adhesive tape (redness, blistering) Sulfa (Sulfonamide AdvReac Intermediate nausea & Verified 03/23/24 09:58 Antibiotics) vomiting Home Medications Medication Instructions Recorded Confirmed Type pantoprazole 40 mg tablet,delayed 40 mg PO BID 12/23/18 03/23/24 History release (Protonix) CPAP Machine #1 ea 04/22/19 03/23/24 Rx CPAP Supplies #1 ea 04/22/19 03/23/24 Rx CPAP Machine #1 ea 08/10/19 03/23/24 Rx albuterol sulfate 90 mcg/actuation 2 puffs inhalation Q6H PRN 08/10/19 03/23/24 Rx aerosol inhaler (Ventolin HFA) shortness of breath or wheezing #8.5 grams rosuvastatin 20 mg tablet (Crestor) 20 mg PO QAM 09/06/20 03/23/24 History citalopram 40 mg tablet (Celexa) 60 mg PO QAM 04/04/21 03/23/24 History aspirin 325 mg tablet 325 mg PO DAILY 07/27/21 03/23/24 History benzonatate 200 mg capsule 200 mg PO Q8H PRN cough 11/14/23 01/27/25 History insulin aspart U-100 100 unit/mL 10 unit subcut AC 01/08/23 03/23/24 History (3 mL) subcutaneous pen (Novolog FlexPen U-100 Insulin aspart) insulin degludec 100 unit/mL (3 34 unit subcut QAM diabetes 01/08/23 03/23/24 History mL) subcutaneous pen (Tresiba FlexTouch U-100 insulin) linaclotide 290 mcg capsule 290 mcg PO DAILY 01/08/23 03/23/24 History (Linzess) nitroglycerin 0.4 mg sublingual 0.4 mg sublingual Q5M PRN Chest 01/08/23 03/23/24 History tablet (Nitrostat) Pain fluticasone furoate 50 1 inh inhalation DAILY 07/30/23 03/23/24 History mcg-vilanterol 25 mcg/dose inhalation powder (Breo Ellipta) clopidogrel 75 mg tablet 75 mg PO DAILY 02/28/24 03/23/24 History gabapentin 800 mg tablet 800 mg PO TID 02/28/24 03/23/24 History ondansetron 8 mg disintegrating 8 mg PO Q8 PRN N/V 02/28/24 03/23/24 History tablet oxycodone 5 mg tablet 5 mg PO .EVERY 4-6 HRS PRN Pain 02/28/24 03/23/24 History magnesium oxide 400 mg PO DAILY #14 tabs 03/01/24 03/23/24 Rx insulin NPH isoph U-100 human 100 15 unit (0.15 mL) subcut .COMPLEX 03/23/24 03/23/24 Rx unit/mL (3 mL) subcutaneous pen #15 mL (Humulin N NPH U-100 Insulin KwikPen) Patient History Medical History Acute and chronic respiratory failure with hypercapnia Hyperkalemia Urinary retention Hypoxia Somnolence Arthritis Urinary problem urinary hesitancy Spinal stenosis Diabetes IDDM Sleep apnea awaiting CPAP Hypertension Carotid arterial disease "no ICA stenosis.. severe left ECA stenosis" per cardiology office visit note 03/2019 > follows with Dr. Reyes in [place] Interstitial lung disease Surgical History History of elbow surgery right History of melanoma excision History of lumbar spinal fusion L5-S1 decompression/fusion (09/17/19): Grade view 2, Glidescope#3, ETT 8.0 at [facility] Status post lumbar surgery History of arthroscopy of right shoulder History of colonoscopy History of tonsillectomy History of hernia surgery X2 History of thumb surgery R/L History of repair of left rotator cuff History of cardiac cath stent x1 (2014) Synergy stent x1 (11/03/2020) Family History Mother Diabetes Heart disease Cancer Lung cancer Father Cancer Oral cancer Other No family history of adverse response to anesthesia Social History Smoking Status: Current every day smoker Tobacco Type: Cigarettes Cigarettes Per Day: A pack; Second Hand Exposure: No; Do You Dip or Chew Tobacco: No; Tobacco Cessation Education Requested by Patient: No Hx Alcohol Use: No Hx Substance Use: No Preferred Language: Citizen Of [place] Communication Ability: Effective Visual Impairment: No Limitations Hearing Ability: Normal Music Engineer Required: No Beliefs That Will Affect Care: None Current Living Situation: Spouse Current Living Situation Comment: Home current occupational status: retired Other Information That Helps Us Care for You: No Feels Safe at Home: Yes Childhood Exposure to Second-Hand Smoke: Yes Diet Comment: food choices with less carbs, uses sugar substitute Assistive Devices: None Results & Data Vital Signs (Past 12 Hours) Vital Signs Temp Pulse Resp BP BP Pulse Ox O2 Del Method 04/01/24 08:22 Nasal Cannula 04/01/24 07:29 36.6 C 83 16 117/53 L 94 Nasal Cannula 03/31/24 21:45 Nasal Cannula 03/31/24 21:45 36.7 C 99 H 18 147/62 H 97 Nasal Cannula O2 Flow Rate 04/01/24 08:22 2 04/01/24 07:29 2 03/31/24 21:45 2 03/31/24 21:45 2 (2) Pneumonia Laterality: right Lung location: unspecified part of lung Pneumonia type: due to unspecified organism Qualified Code(s): J18.9 - Pneumonia, unspecified organism
[2024-04-01] MEDS: ONDANSETRON INJ 2 MG/ML 2 ML VIAL IV PRN (09:57)
--- NOTE | 2024-04-01 22:41 | Hospitalist Progress Note ---
Date of Service April 01, 2024 Assessment & Plan (1) Diffuse pain: Plan: 78yo male with history of metastatic adenocarcinoma of the lung currently on chemotherapy with Carboplatin, Paclitaxel and Pembrolizumab presenting with diffuse body pain, persistent despite PO Oxycodone taken at home. Patient has experienced similar pain in the past - thought likely due to his chemotherapy treatment. Typically occurs every other month. Some improvement with IV morphine given in the ER. -Admit to Medical -Morphine 2-4mg IV q 3 hours as needed for pain management -Zofran PRN nausea -Narcan available for accidental overdose -Docusate/Senna and Miralax available for bowel management pain appears better controlled. will continue above meds. d/w heme oncology -Continue Gabapentin -Tylenol PRN (2) Metastatic lung cancer (metastasis from lung to other site): Plan: Patient follows with Oncology - on active chemotherapy. Question of possible pneumonitis given his ongoing SOB and cough. His Cycle 3 of treatment was recently held and he was treated with steroids. -Oncology consultation appreciated -Continue Zosyn for now due to concern for possible PNA noted on imaging - patchy groundglass and nodular densities in the RML and lower lungs ?infection. ?inflammation possible given chemo tx? will repeat blood work in am, check procal and crp (3) DM type 2 (diabetes mellitus, type 2): Plan: Chronic. Last [id number]=4.9 on 01/21/24. Patient with variable blood sugars - response to the steroids he receives with chemotherapy. He has been seen by Diabetes Clinic for this issue on 03/23/24. -Lantus 12u BID with ISS -Goal blood sugar 110 - 140 Plan Chronic Medical Issues: COPD -Continue Breo-Ellipta -Continue Albuterol PRN -Continue Tessalon PRN JAY -Continue CPAP Hyperlipidemia -Continue Crestor 20mg po daily GERD -Continue Protonix 40mg po BID Depression -Continue Citalopram 60mg po qAM F/E/N - NSS at 80mL/hr x 1L Ppx - Lovenox 40u Code - Full per discussion with patient Dispo - Admit to medical Admission and Anticipated Discharge Date Admission Date: March 31, 2024 Subjective 78 yo male reports no new symptoms. Physical Exam Physical Exam: General: patient reports no new symptoms. Skin: warm, dry, intact, no rashes or lesions HEENT: NC/AT, PERRL, EOMI Heart: +S1/S2, regular, no m/r/g Lungs: equal air entry bilaterally, no rales/rhonchi/wheezes Abd: +BS, soft, NT/ND, no masses/organomegaly/ascites Ext: warm, 2+ pulses in UE/LE bilaterally, no clubbing/cyanosis or edema Neuro: nonfocal, patient AA&O x 4 Results & Data Results & Data Vital Signs (Past 12 Hours) Vital Signs Temp Pulse Resp BP BP Pulse Ox O2 Del Method 04/01/24 19:24 37.0 C 84 18 114/56 L 93 Nasal Cannula 04/01/24 15:54 110/60 94 Nasal Cannula 04/01/24 15:30 36.7 C 81 18 98/63 L Room Air O2 Flow Rate 04/01/24 19:24 2 04/01/24 15:54 2 04/01/24 15:30 PG Care Time/CCT Total # of Minutes Spent Total Time Spent with Patient: Total time spent is greater than 50% in coordination of care (as documented) at patient's floor/unit and/or counseling patient: Coding Level of Care Code 90829 SUB INP/OBS CARE 3/50MIN Diagnoses Diffuse pain R52 Metastatic lung cancer (metastasis from lung to other site) C34.90 DM type 2 (diabetes mellitus, type 2) E11.9
[2024-04-02 07:34] LABS: Hematocrit (blood only) 25.1 % (42.0-52.0); Hemoglobin 8.4 g/dl (14.0-18.0); Mean Corpuscular Hemoglobin 33.2 pg (25.0-34.0); Mean Corpuscular Hgb Conc 33.5 g/dL (32.0-36.0); Mean Corpuscular Volume 99.2 fL (80.0-100.0); Mean Platelet Volume 9.8 fL (9.4-12.4); Platelet Count 94 K/uL (130-400); Platelet Estimate Decreased (Normal); RDW Coefficient of Variation 15.6 % (11.5-14.5); RDW Standard Deviation 56.7 fL (36.4-46.3); Red Blood Count 2.53 M/uL (4.70-6.10); White Blood Count 1.88 K/ul (4.8-10.8)
[2024-04-02 08:10] LABS: BUN Creatinine Ratio 21.6 (10-20); C Reactive Protein 6.96 mg/dl (0-0.5); Calcium 8.5 mg/dl (8.6-10.3); Creatinine Clr Calc Pharmacy 37.8 ml/min; Potassium 4.2 mmol/L (3.5-5.1)
[2024-04-02] MEDS: LANTUS PER UNIT CHARGE SQ SCH (09:17)
[2024-04-02] MEDS: DICLOFENAC SOD 1% GEL 100 GM TUBE EXT SCH (09:18)
--- NOTE | 2024-04-02 14:38 | XRay Report ---
XR chest 2V PA/lateral CLINICAL HISTORY: hypoxia COMPARISON STUDY: 03/31/2024 x-ray and CT of 02/29/2024. FINDINGS: Heart size and pulmonary vasculature are normal. There is a stable small left pleural effus ion and adjacent atelectasis or scarring at the left mid and lower lung. No new consolidation or pleu ral effusion seen. No pneumothorax. IMPRESSION: Stable exam. ACT 112: Negative or not required by law. Electronically signed by: Keith Burger M.D. 04/02/2024 2:36 PM
[2024-04-02] MEDS: oxyCODONE HCL IR 5 MG TAB (IMMEDIATE RELEASE) PO PRN (15:00)
[2024-04-02] MEDS: SODIUM CHLOR 7% 4 ML NEB NEB SCH (18:26)
--- NOTE | 2024-04-02 22:49 | Hospitalist Progress Note ---
Date of Service April 02, 2024 Assessment & Plan (1) Diffuse pain: Plan: 78yo male with history of metastatic adenocarcinoma of the lung currently on chemotherapy with Carboplatin, Paclitaxel and Pembrolizumab presenting with diffuse body pain, persistent despite PO Oxycodone taken at home. Patient has experienced similar pain in the past - thought likely due to his chemotherapy treatment. Typically occurs every other month. Some improvement with IV morphine given in the ER. -Admit to Medical -Morphine 2-4mg IV q 3 hours as needed for pain management -Zofran PRN nausea -Narcan available for accidental overdose -Docusate/Senna and Miralax available for bowel management pain appears better controlled. will continue above meds. awaiting input form PT d/w heme oncology -Continue Gabapentin -Tylenol PRN Chronic kindey disease stage 3b creatinine appears slightly higher. will monitor. recheck in AM (2) Metastatic lung cancer (metastasis from lung to other site): Plan: Patient follows with Oncology - on active chemotherapy. Question of possible pneumonitis given his ongoing SOB and cough. His Cycle 3 of treatment was recently held and he was treated with steroids. -Oncology consultation appreciated procal is negative. no fevers, will hold empiric zosyn moving forward repeat chest x ray did not show any signs of consiloidation. (3) DM type 2 (diabetes mellitus, type 2): Plan: Chronic. Last [id number]=0.9 on 01/21/24. Patient with variable blood sugars - response to the steroids he receives with chemotherapy. He has been seen by Diabetes Clinic for this issue on 03/23/24. -Lantus 12u BID with ISS -Goal blood sugar 110 - 140 Plan Chronic Medical Issues: COPD -Continue Breo-Ellipta -Continue Albuterol PRN -Continue Tessalon PRN JAY -Continue CPAP Hyperlipidemia -Continue Crestor 20mg po daily GERD -Continue Protonix 40mg po BID Depression -Continue Citalopram 60mg po qAM F/E/N - NSS at 80mL/hr x 1L Ppx - Lovenox 40u Code - Full per discussion with patient Dispo - Admit to medical Admission and Anticipated Discharge Date Admission Date: March 31, 2024 Subjective Patient reports no new symptoms. Continue to have pain. Physical Exam Physical Exam: General: patient reports no new symptoms. Skin: warm, dry, intact, no rashes or lesions HEENT: NC/AT, PERRL, EOMI Heart: +S1/S2, regular, no m/r/g Lungs: equal air entry bilaterally, no rales/rhonchi/wheezes Abd: +BS, soft, NT/ND, no masses/organomegaly/ascites Ext: warm, 2+ pulses in UE/LE bilaterally, no clubbing/cyanosis or edema Neuro: nonfocal, patient AA&O x 4 Results & Data Results & Data Vital Signs (Past 12 Hours) Vital Signs Temp Pulse Resp BP Pulse Ox O2 Del Method O2 Flow Rate 04/02/24 19:45 37.3 C 78 18 101/59 L 92 Nasal Cannula 2 04/02/24 19:15 Nasal Cannula 2 04/02/24 18:27 101 H 18 91 Nasal Cannula 2 04/02/24 14:56 82 18 116/64 94 Nasal Cannula 2 04/02/24 12:25 Nasal Cannula 2 04/02/24 11:50 36.7 C 70 20 141/72 H 98 Room Air PG Care Time/CCT Total # of Minutes Spent Total Time Spent with Patient: Total time spent is greater than 50% in coordination of care (as documented) at patient's floor/unit and/or counseling patient: Coding Level of Care Code 34189 SUB INP/OBS CARE 3/50MIN Diagnoses Diffuse pain R52 Metastatic lung cancer (metastasis from lung to other site) C34.90 DM type 2 (diabetes mellitus, type 2) E11.9
[2024-04-03 07:13] LABS: BUN Creatinine Ratio 20.3 (10-20); C Reactive Protein 9.14 mg/dl (0-0.5); Calcium 8.9 mg/dl (8.6-10.3); Creatinine Clr Calc Pharmacy 36.5 ml/min; Potassium 4.7 mmol/L (3.5-5.1)
[2024-04-03 07:35] LABS: Partial Thromboplastin Ratio 1.1; Partial Thromboplastin Time 29 Seconds (21-31); Prothrombin Time 10.9 Seconds (9.0-12.0)
[2024-04-03 07:59] LABS: Hematocrit (blood only) 26.1 % (42.0-52.0); Hemoglobin 8.8 g/dl (14.0-18.0); Mean Corpuscular Hemoglobin 32.5 pg (25.0-34.0); Mean Corpuscular Hgb Conc 33.7 g/dL (32.0-36.0); Mean Corpuscular Volume 96.3 fL (80.0-100.0); Neutrophils # (auto) < 0.50 K/uL (1.40-6.50); Platelet Count 83 K/uL (130-400); RDW Coefficient of Variation 15.1 % (11.5-14.5); RDW Standard Deviation 52.7 fL (36.4-46.3); Red Blood Count 2.71 M/uL (4.70-6.10); White Blood Count 0.39 K/ul (4.8-10.8)
--- NOTE | 2024-04-03 08:18 | CT Scan Report ---
EXAM: CT head/brain wo con CLINICAL HISTORY: Fall. TECHNIQUE: Axial non-contrast CT scan of the brain was performed from the skull base to the high parietal region with coronal and sagittal reformats. One of the following dose reduction techniques were utilized for this exam: Automated exposure control, adjustment of the mA and/or kV according to patient size, use of iterative reconstruction. CTDI: 37.7mGy, DLP: 547.75mGy*cm. COMPARISON: None. FINDINGS: Accentuated bilateral cerebral periventricular white matter hypodensities denoting hypoperfusion with bilateral fronto-parietal periventricular and subcortical hypodense foci are noted. The grey white mater differentiation is preserved. Normal CT appearance of the posterior fossa structures. No intracerebral or extra axial hematoma. Dilated ventricular system, cortical sulci and extra-axial CSF spaces. No midline shifts or deformity. No definite calvarial fractures. The osseous structures in the skull base are unremarkable. The scanned paranasal sinuses are unremarkable IMPRESSION: 1. No skull fractures. 2. No intra or extra-axial hemorrhage. 3. No parenchymal territorial hypodense areas suggestive of acute ischemic insult. 4. Microvascular ischemic changes with age matches mild brain involutional changes. Electronically signed by Keiko Feng 04-03-2024 08:17 AM
[2024-04-03] MEDS: LACTATED RINGER'S 1,000 ML IV SCH (09:21)
--- NOTE | 2024-04-03 09:23 | Nephrology Consultation ---
Date of Consultation April 03, 2024 Assessment & Plan (1) Acute kidney injury: Non-oliguric. Electrolytes normal. Volume depleted and PO intake is poor. IV LR infusion has been started. Goal is to encourage a slightly positive fluid balance. Creatinine known to fluctuate at baseline. Poor oral intake and Robson is hypotensive. There is no emergent indication for [place]. Urine acellular. CT demonstrates that kidneys to be unobstructed. Document strict I/O's. Repeat metabolic profile tomorrow AM. (2) CKD (chronic kidney disease), stage III: CKD IIIb A3. Baseline creatinine 1.5-2.0 mg/dL. History of JAVED requiring dialysis in 2019. 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 MACR 1610 mcg/mg. Follows with Dr. De León as outpatient. Medications are appropriate for kidney function. Gabapentin excessive at 800 mg TID. I would advise trying to wean this medication as tolerated. (3) Metastatic lung cancer (metastasis from lung to other site): Oncology consultation pending. Suggest palliative care consultation to assist with goals of care and pain control. History of Present Illness Reason for Consultation: JAVED Requesting Physician: Forest Massey Attending Physician: Forest Massey History of Present Illness Mr. Robson Alvarez is a 78 year-old male with metastatic NSCLC, COPD, tobacco abuse, coronary artery disease, diabetes mellitus II, hypertension, JAY, spinal stenosis, and CKD. He started treatment for metastatic lung adenocarcinoma with pembrolizumab + carboplatin/paclitaxel in late December 2023. Robson follows in the [facility] with Dr. Choudhury. He established in the [facility] nephrology clinic with Dr. De León last month. Robson has a history of JAVED requiring temporary dialysis in 2019. He has CKD IIIb A3. Baseline creatinine has been 1.5-2.0 mg/dL. MACR 1610 mcg/mg. Urine acellular. CT scan obtained on admission demonstrating the kidneys to be unobstructed. Dr. De León had prescribed lisinopril but it does not appear Robson started the medication. He was admitted to [facility] last month with testicular pain which was felt to be related to an inguinal hernia. Elevated WBC and procal were noted on admission. Cefdinir and doxycycline x 7 days for coverage of possible infection, most likely sinusitis based on clinical history. Robson returned to [facility] on 03/31 with diffuse pain which was uncontrolled with oxycodone as well and poor appetite and significantly decreased PO intake. He also reported a cough. Imaging demonstrating a patchy density in the right middle lobe on CT. Zosyn was started but subsequently stopped due to low clinical suspicion and reassuring follow up CXR. Oncology consultation is pending. Robson is being treated with gabapentin 800 mg TID + PRN morphine +/- oxycodone for pain. He remains non-oliguric. Serum creatinine on admission 1.77 mg/dL is now 1.97 mg/dL. Serum electrolytes are normal. UA demonstrates 2+ protein and microscopy is acellular. LR has been requested to run at 80 ml/hr. Robson remains chronically hypotensive. Temp 36.0 this AM. Supplemental O2 at 3 L/min. Robson suffered a presyncopal episode with fall this AM injuring the right side of his face + eye. He was seen and evaluated upon transfer to the PCU following the event. Allergies Allergy/AdvReac Type Severity Reaction Status Date / Time adhesive Allergy Mild Silk/plastic Verified 03/23/24 09:58 adhesive tape (redness, blistering) Sulfa (Sulfonamide AdvReac Intermediate nausea & Verified 03/23/24 09:58 Antibiotics) vomiting Home Medications Medication Instructions Recorded Confirmed Type pantoprazole 40 mg tablet,delayed 40 mg PO BID 12/23/18 03/23/24 History release (Protonix) CPAP Machine #1 ea 04/22/19 03/23/24 Rx CPAP Supplies #1 ea 04/22/19 03/23/24 Rx CPAP Machine #1 ea 08/10/19 03/23/24 Rx albuterol sulfate 90 mcg/actuation 2 puffs inhalation Q6H PRN 08/10/19 03/23/24 Rx aerosol inhaler (Ventolin HFA) shortness of breath or wheezing #8.5 grams rosuvastatin 20 mg tablet (Crestor) 20 mg PO QAM 09/06/20 03/23/24 History citalopram 40 mg tablet (Celexa) 60 mg PO QAM 04/04/21 03/23/24 History aspirin 325 mg tablet 325 mg PO DAILY 07/27/21 03/23/24 History benzonatate 200 mg capsule 200 mg PO Q8H PRN cough 01/08/23 03/23/24 History insulin aspart U-100 100 unit/mL 10 unit subcut AC 01/08/23 03/23/24 History (3 mL) subcutaneous pen (Novolog FlexPen U-100 Insulin aspart) insulin degludec 100 unit/mL (3 34 unit subcut QAM diabetes 01/08/23 03/23/24 History mL) subcutaneous pen (Tresiba FlexTouch U-100 insulin) linaclotide 290 mcg capsule 290 mcg PO DAILY 01/08/23 03/23/24 History (Linzess) nitroglycerin 0.4 mg sublingual 0.4 mg sublingual Q5M PRN Chest 01/08/23 03/23/24 History tablet (Nitrostat) Pain fluticasone furoate 50 1 inh inhalation DAILY 07/30/23 03/23/24 History mcg-vilanterol 25 mcg/dose inhalation powder (Breo Ellipta) clopidogrel 75 mg tablet 75 mg PO DAILY 02/28/24 03/23/24 History gabapentin 800 mg tablet 800 mg PO TID 02/28/24 03/23/24 History ondansetron 8 mg disintegrating 8 mg PO Q8 PRN N/V 02/28/24 03/23/24 History tablet oxycodone 5 mg tablet 5 mg PO .EVERY 4-6 HRS PRN Pain 02/28/24 03/23/24 History magnesium oxide 400 mg PO DAILY #14 tabs 03/01/24 03/23/24 Rx insulin NPH isoph U-100 human 100 15 unit (0.15 mL) subcut .COMPLEX 03/23/24 03/23/24 Rx unit/mL (3 mL) subcutaneous pen #15 mL (Humulin N NPH U-100 Insulin KwikPen) Patient History Medical History Acute and chronic respiratory failure with hypercapnia Hyperkalemia Urinary retention Hypoxia Somnolence Arthritis Urinary problem urinary hesitancy Spinal stenosis Diabetes IDDM Sleep apnea awaiting CPAP Hypertension Carotid arterial disease "no ICA stenosis.. severe left ECA stenosis" per cardiology office visit note 03/2019 > follows with Dr. Reyes in [place] Interstitial lung disease Surgical History History of elbow surgery right History of melanoma excision History of lumbar spinal fusion L5-S1 decompression/fusion (09/17/19): Grade view 2, Glidescope#3, ETT 8.0 at [facility] Status post lumbar surgery History of arthroscopy of right shoulder History of colonoscopy History of tonsillectomy History of hernia surgery X2 History of thumb surgery R/L History of repair of left rotator cuff History of cardiac cath stent x1 (2014) Synergy stent x1 (11/03/2020) Family History Mother Diabetes Heart disease Cancer Lung cancer Father Cancer Oral cancer Other No family history of adverse response to anesthesia Social History Smoking Status: Current every day smoker Tobacco Type: Cigarettes Cigarettes Per Day: A pack; Second Hand Exposure: No; Do You Dip or Chew Tobacco: No; Tobacco Cessation Education Requested by Patient: No Hx Alcohol Use: No Hx Substance Use: No Preferred Language: Telugu Communication Ability: Effective Visual Impairment: No Limitations Hearing Ability: Normal Admitted Attorneys Required: No Beliefs That Will Affect Care: None Current Living Situation: Spouse Current Living Situation Comment: Home current occupational status: retired Other Information That Helps Us Care for You: No Feels Safe at Home: Yes Childhood Exposure to Second-Hand Smoke: Yes Diet Comment: food choices with less carbs, uses sugar substitute Assistive Devices: None Review of Systems Review of Systems: All systems reviewed & are unremarkable except as noted in HPI & below Physical Exam Constitutional: well developed and + frail appearing; no acute distress Eyes: large subconjunctival hemorrhage right eye ENMT: Mouth: + dry oral mucous membranes; no oral mucosal abnormality Neck: normal visual inspection and trachea midline Respiratory: normal respiratory effort Auscultation: lungs clear to auscultation bilaterally and + rhonchi Cardiovascular: Rate/Rhythm: regular rate Heart Sounds: normal S1 and normal S2 Extremities: + edema (trace - 1+ dependent) Musculoskeletal: Extremities: no cyanosis and no clubbing Skin: + turgor decreased and + ecchymosis; no jaundice Neurologic: Motor/Sensory: no tremor and no asterixis Psychiatric: Orientation: alert and oriented x 3 Results & Data Vital Signs (Past 12 Hours) Vital Signs Temp Pulse Pulse Pulse Resp BP Pulse Ox 04/03/24 08:53 36.0 C L 89 14 86/52 L 04/03/24 07:39 36.7 C 88 16 96/56 L 92 04/03/24 06:20 36.9 C 100 H 20 100/50 L 90 O2 Del Method O2 Flow Rate 04/03/24 08:53 Nasal Cannula 3 04/03/24 07:39 Nasal Cannula 3 04/03/24 06:20 Oxymask 2 Laboratory Results Laboratory Results - last 24 hr 04/02/24 04/02/24 04/02/24 11:41 16:27 20:18 WBC RBC Hgb Hct MCV MCH MCHC RDW Std Deviation RDW Coeff of Jono Plt Count MPV Neut # (Auto) PT INR APTT PTT Ratio Sodium Potassium Chloride Carbon Dioxide Anion Gap BUN Creatinine Est Cr Clr Drug Dosing eGFR BUN/Creatinine Ratio Glucose POC Glucose 124 H 133 H 114 H Calcium C-Reactive Protein Stl C. cayetanensis PCR Stool Rotavirus A PCR Stl Adenov F 40/41 PCR Stool Astrovirus (PCR) Stool Campylobacter PCR Stool Cryptosporidium PCR Stl E.coli Shiga Tox PCR Stl Enterotoxigenic E PCR Stool EAEC (PCR) Stl E. histolytica PCR Stool Giardia Lamblia PCR Stool Salmonella PCR Stool Sapovirus (PCR) Stl P. shigelloides PCR Stl Shigella/EIEC PCR St Y.enterocolitica PCR Stool Vibrio (PCR) Stl Vibrio cholerae PCR Stl Norovirus GI/GII PCR 04/02/24 04/03/24 04/03/24 22:10 06:13 06:30 WBC 0.39 L* RBC 2.71 L Hgb 8.8 L Hct 26.1 L MCV 96.3 MCH 32.5 MCHC 33.7 RDW Std Deviation 52.7 H RDW Coeff of Jono 15.1 H Plt Count 83 L MPV 10.0 Neut # (Auto) < 0.50 L* PT INR APTT PTT Ratio Sodium 132 L Potassium 4.7 Chloride 105 Carbon Dioxide 22 Anion Gap 5 BUN 40 H Creatinine 1.97 H Est Cr Clr Drug Dosing 36.5 eGFR 34.36 BUN/Creatinine Ratio 20.3 H Glucose 105 H POC Glucose 104 H 128 H Calcium 8.9 C-Reactive Protein 9.14 H Stl C. cayetanensis PCR Stool Rotavirus A PCR Stl Adenov F 40/41 PCR Stool Astrovirus (PCR) Stool Campylobacter PCR Stool Cryptosporidium PCR Stl E.coli Shiga Tox PCR Stl Enterotoxigenic E PCR Stool EAEC (PCR) Stl E. histolytica PCR Stool Giardia Lamblia PCR Stool Salmonella PCR Stool Sapovirus (PCR) Stl P. shigelloides PCR Stl Shigella/EIEC PCR St Y.enterocolitica PCR Stool Vibrio (PCR) Stl Vibrio cholerae PCR Stl Norovirus GI/GII PCR 04/03/24 04/03/24 06:56 09:04 WBC RBC Hgb Hct MCV MCH MCHC RDW Std Deviation RDW Coeff of Jono Plt Count MPV Neut # (Auto) PT 10.9 INR 1.0 APTT 29 PTT Ratio 1.1 Sodium Potassium Chloride Carbon Dioxide Anion Gap BUN Creatinine Est Cr Clr Drug Dosing eGFR BUN/Creatinine Ratio Glucose POC Glucose Calcium C-Reactive Protein Stl C. cayetanensis PCR Pending Stool Rotavirus A PCR Pending Stl Adenov F 40/41 PCR Pending Stool Astrovirus (PCR) Pending Stool Campylobacter PCR Pending Stool Cryptosporidium PCR Pending Stl E.coli Shiga Tox PCR Pending Stl Enterotoxigenic E PCR Pending Stool EAEC (PCR) Pending Stl E. histolytica PCR Pending Stool Giardia Lamblia PCR Pending Stool Salmonella PCR Pending Stool Sapovirus (PCR) Pending Stl P. shigelloides PCR Pending Stl Shigella/EIEC PCR Pending St Y.enterocolitica PCR Pending Stool Vibrio (PCR) Pending Stl Vibrio cholerae PCR Pending Stl Norovirus GI/GII PCR Pending Diagnostic Findings XR chest 2V PA/lateral COMPARISON STUDY: 03/31/2024 x-ray and CT of 02/29/2024. FINDINGS: Heart size and pulmonary vasculature are normal. There is a stable small left pleural effusion and adjacent atelectasis or scarring at the left mid and lower lung. No new consolidation or pleural effusion seen. No pneumothorax. IMPRESSION: Stable exam. CT of the abdomen and pelvis performed without contrast COMPARISON: None FINDINGS: Lower chest: There is a small left basilar pleural effusion seen. Mild scattered areas of patchy groundglass and small nodular opacity throughout the lung bases in the right middle lobe. Liver: No suspicious liver lesions. Gallbladder: Punctate gallstone seen at the neck. No evidence of acute cholecystitis. Spleen: Normal size. Pancreas: No suspicious pancreatic lesions. The pancreatic duct is not dilated. Adrenal glands: No adrenal nodules. Kidneys: No hydronephrosis or obstructing renal stones. There is an 8 mm lesion at the inferior pole of the left kidney which is high in attenuation, most consistent with a hemorrhagic/proteinaceous cyst. Otherwise no additional visualized masses seen on this noncontrast CT. Bladder / Pelvic organs: Unremarkable. Bowel: No bowel obstruction. No abnormal bowel wall thickening. The appendix is unremarkable. Left colonic diverticulosis without evidence for diverticulitis. There is a large colonic stool burden. Lymph nodes: No retroperitoneal, mesenteric, or pelvic lymphadenopathy. Peritoneum / Retroperitoneum: No free fluid or air within the abdomen. Vessels: No infrarenal aortic aneurysm. Heavy aortoiliac calcification. Bones and soft tissues: No suspicious lesion in the bones. L5-S1 fixation changes. Small fat-containing inguinal hernias. IMPRESSION: No evidence for an acute traumatic abnormality of the abdomen or pelvis. Patchy groundglass and nodular densities in the right middle lobe and lower lungs, appear infectious. There is a small left pleural effusion. PG Care Time/CCT Total # of Minutes Spent Total Time Spent with Patient: Total time spent is greater than 50% in coordination of care (as documented) at patient's floor/unit and/or counseling patient: Coding Level of Care Code 72711 IN/OBS CONSULT LVL 4,60M Diagnoses Acute kidney injury N17.9 CKD (chronic kidney disease), stage III N18.3 Metastatic lung cancer (metastasis from lung to other site) C34.90
--- NOTE | 2024-04-03 10:11 | CT Scan Report ---
CT OF THE CHEST WITHOUT IV CONTRAST CLINICAL HISTORY: Hypoxia. History of lung cancer. COMPARISON STUDY: Chest CT February 29, 2024. CT of the abdomen and pelvis March 31, 2024. Chest rad iograph April 02, 2024. CT DOSE: 525.96 mGy.cm TECHNIQUE: Axial images of the chest were obtained without IV contrast. Images were reviewed in the axial, sagittal, and coronal planes. IV contrast was not administered for this examination. Automat ed exposure control was utilized for the study. A dose lowering technique was utilized adhering to t he principles of ALARA. FINDINGS: The heart is mildly enlarged. There is moderate coronary artery and aortic valvular calcif ication. There is no pericardial effusion. Calcified mediastinal and right hilar lymph nodes are note d. Prominent mediastinal lymph nodes are similar to CT of February 29, 2024. A prevascular lymph node o n image 85 measures 1.2 x 0.8 cm. A small left pleural effusion has mildly increased in size since CT of February 29, 2024. There is no right pleural effusion. There is no pneumothorax. Band-like left upp er lobe opacity and subpleural left lower lobe opacity are similar to CT of February 29, 2024. Central airways are patent. There is no consolidation to suggest pneumonia. Interlobular septal thickening is present. There are groundglass opacities within the lungs. There is underlying emphysema. Mild alveo lar opacities within the right middle lobe are present. These are similar to CT of May 07, 2022. Mu ltiple subacute to chronic left-sided rib fractures are again noted. There are no acute fractures wit hin the thorax. IMPRESSION: 1. Minimal right middle lobe airspace opacity suggestive of an infectious process. 2. Findings suggestive of mild interstitial pulmonary edema. 3. Mild increase in size of a small left pleural effusion. This remains indeterminate and may be dina tment-related however imaging follow-up to ensure resolution/stability is recommended. 4. Band-like left upper lobe opacity and subpleural left lower lobe opacity. These are unchanged sinc e prior chest CT and favor posttreatment change. However, continued imaging follow-up is recommended to exclude the possibility of recurrent tumor. 5. No change in mildly enlarged mediastinal lymph nodes which are likely benign but can be assessed o n follow-up exams. ACT 112: Negative or not required by law. Electronically signed by: Aubrey Carballo M.D. 04/03/2024 10:10 AM
[2024-04-03 10:32] LABS: Adenovirus F 40/41 PCR Not Detected (NotDetected); Astrovirus PCR Not Detected (NotDetected); Campylobacter PCR Not Detected (NotDetected); Cryptosporidium PCR Not Detected (NotDetected); Cyclospora cayetanensis PCR Not Detected (NotDetected); Entamoeba histolytica PCR Not Detected (NotDetected); Enteroaggregative E.coli(EAEC) Not Detected (NotDetected); Enteropathogenic E.coli (EPEC) Not Detected (NotDetected); Enterotoxigenic E.coli (ETEC) Not Detected (NotDetected); Giardia lamblia PCR Not Detected (NotDetected); Norovirus GI/GII PCR Not Detected (NotDetected); Plesiomonas shigelloides PCR Not Detected (NotDetected); Rotavirus A PCR Not Detected (NotDetected); Salmonella PCR Not Detected (NotDetected); Sapovirus PCR Not Detected (NotDetected); Shiga-like Toxin E.coli (STEC) Not Detected (NotDetected); Shigella/Enteroinvasive E.coli Not Detected (NotDetected); Vibrio cholerae PCR Not Detected (NotDetected); Vibrio species PCR Not Detected (NotDetected); Yersinia enterocolitica PCR Not Detected (NotDetected)
[2024-04-03] MEDS ORDERED: methylPREDNISolone 10 mg/mL (For Ped Dose < 7mg) IV SCH (11:30)
[2024-04-03] MEDS: methylPREDNISolone 1,000 MG in NSS 250 ML IV SCH (12:24)
[2024-04-03] MEDS: FILGRASTIM 480 MCG/1.6 ML VIAL SC SCH (12:42)
[2024-04-03] MEDS: LOPERAMIDE HCL 2 MG CAP PO PRN (13:18)
--- NOTE | 2024-04-03 18:09 | Palliative Care Consultation ---
Date of Consultation April 03, 2024 Assessment & Plan (1) Anxiety associated with cancer diagnosis: Begin a trial of Ativan 0.25mg po q6h prn anxiety/nausea and Ativan 0.5mg po QHS prn insomnia and anxiety Will follow along in OP Pall Onc clinic (2) Chronic post-traumatic stress disorder (PTSD) after combat: [place] [employer] (3) Diarrhea: (4) Dyspnea and respiratory abnormalities: (5) Palliative care by specialist: Introduced Palliative Medicine and explained our role in patient's care. Patient and/or family were receptive to palliative services for goals of care discussions. Reviewed we are different from hospice, a home health nurse visiting service. (6) Metastatic lung cancer (metastasis from lung to other site): Plan As above Thank you for allowing us to participate in the ongoing care of this patient. Please page with any additional concerns. Emily Ashley DNP Director, Palliative Medicine History of Present Illness Reason for Consultation: goals and sx mgt Attending Physician: Forest Massey History of Present Illness Robson Alvarez is a 78 year old with metastatic lung cancer admitted with resp failure d/t ICI toxicity/pneumonitis. He is followed by Dr Choudhury in [facility] and s/p cycle 1 of pembrolizumab on 01/22/2024 and cycle 1 of carboplatin/paclitaxel on 01/29/2024. He received cycle 3 of treatment with carboplatin/paclitaxel on 03/26/2024. Pembrolizumab was held with cycle 3 due to concern for immunotherapy induced pneumonitis. He struggles with severe PTSD since [place] tours of duty.He has an emotional support dog, a 2yo Corgi named Amada, present at bedside along with his He admits to signif anxiety, it consumes his days and nights.He tells me he cannot turn off his mind and the speed of thoughts racing thru his head overwhelm and frighten him. Being in the confined space of the hospital also makes this worse. Having his and Rosalind the support dog present has greatly helped his mood. He is not sleeping well and since cancer dx, this has worsened. feels he does not get enough oxygen with sleep and exertion so they have a pulm eval pending in OP clinic. Allergies Allergy/AdvReac Type Severity Reaction Status Date / Time adhesive Allergy Mild Silk/plastic Verified 03/23/24 09:58 adhesive tape (redness, blistering) Sulfa (Sulfonamide AdvReac Intermediate nausea & Verified 03/23/24 09:58 Antibiotics) vomiting Home Medications Medication Instructions Recorded Confirmed Type pantoprazole 40 mg tablet,delayed 40 mg PO BID 12/23/18 03/23/24 History release (Protonix) CPAP Machine #1 ea 04/22/19 03/23/24 Rx CPAP Supplies #1 04/22/19 03/23/24 Rx CPAP Machine #1 08/10/19 03/23/24 Rx albuterol sulfate 90 mcg/actuation 2 puffs inhalation Q6H PRN 08/10/19 03/23/24 Rx aerosol inhaler (Ventolin HFA) shortness of breath or wheezing #8.5 grams rosuvastatin 20 mg tablet (Crestor) 20 mg PO QAM 09/06/20 03/23/24 History citalopram 40 mg tablet (Celexa) 60 mg PO QAM 04/04/21 03/23/24 History aspirin 325 mg tablet 325 mg PO DAILY 07/27/21 03/23/24 History benzonatate 200 mg capsule 200 mg PO Q8H PRN cough 01/08/23 03/23/24 History insulin aspart U-100 100 unit/mL 10 unit subcut AC 01/08/23 03/23/24 History (3 mL) subcutaneous pen (Novolog FlexPen U-100 Insulin aspart) insulin degludec 100 unit/mL (3 34 unit subcut QAM diabetes 01/08/23 03/23/24 History mL) subcutaneous pen (Tresiba FlexTouch U-100 insulin) linaclotide 290 mcg capsule 290 mcg PO DAILY 01/08/23 03/23/24 History (Linzess) nitroglycerin 0.4 mg sublingual 0.4 mg sublingual Q5M PRN Chest 01/08/23 03/23/24 History tablet (Nitrostat) Pain fluticasone furoate 50 1 inh inhalation DAILY 07/30/23 03/23/24 History mcg-vilanterol 25 mcg/dose inhalation powder (Breo Ellipta) clopidogrel 75 mg tablet 75 mg PO DAILY 02/28/24 03/23/24 History gabapentin 800 mg tablet 800 mg PO TID 02/28/24 03/23/24 History ondansetron 8 mg disintegrating 8 mg PO Q8 PRN N/V 02/28/24 03/23/24 History tablet oxycodone 5 mg tablet 5 mg PO .EVERY 4-6 HRS PRN Pain 02/28/24 03/23/24 History magnesium oxide 400 mg PO DAILY #14 tabs 03/01/24 03/23/24 Rx insulin NPH isoph U-100 human 100 15 unit (0.15 mL) subcut .COMPLEX 03/23/24 03/23/24 Rx unit/mL (3 mL) subcutaneous pen #15 mL (Humulin N NPH U-100 Insulin KwikPen) Patient History Medical History Acute and chronic respiratory failure with hypercapnia Hyperkalemia Urinary retention Hypoxia Somnolence Arthritis Urinary problem urinary hesitancy Spinal stenosis Diabetes IDDM Sleep apnea awaiting CPAP Hypertension Carotid arterial disease "no ICA stenosis.. severe left ECA stenosis" per cardiology office visit note 03/2019 > follows with Dr. Reyes in [place] Interstitial lung disease Surgical History History of elbow surgery right History of melanoma excision History of lumbar spinal fusion L5-S1 decompression/fusion (09/17/19): Grade view 2, Glidescope#3, ETT 8.0 at [facility] Status post lumbar surgery History of arthroscopy of right shoulder History of colonoscopy History of tonsillectomy History of hernia surgery X2 History of thumb surgery R/L History of repair of left rotator cuff History of cardiac cath stent x1 (2014) Synergy stent x1 (11/03/2020) Family History Mother Diabetes Heart disease Cancer Lung cancer Father Cancer Oral cancer Other No family history of adverse response to anesthesia Social History Smoking Status: Current every day smoker Tobacco Type: Cigarettes Cigarettes Per Day: A pack; Second Hand Exposure: No; Do You Dip or Chew Tobacco: No; Tobacco Cessation Education Requested by Patient: No Hx Alcohol Use: No Hx Substance Use: No Preferred Language: Icelandic Communication Ability: Effective Visual Impairment: No Limitations Hearing Ability: Normal Press Offbearer Required: No Beliefs That Will Affect Care: None Current Living Situation: Spouse Current Living Situation Comment: Home current occupational status: retired Other Information That Helps Us Care for You: No Feels Safe at Home: Yes Childhood Exposure to Second-Hand Smoke: Yes Diet Comment: food choices with less carbs, uses sugar substitute Assistive Devices: None Review of Systems Review of Systems: All systems reviewed & are unremarkable except as noted in Subjective Physical Exam Physical Exam: Supine in bed, support dog at his side anxiety noted bitemp wasting/mod perrla, eomi's pharynx pink, dentition poor neck supple, no stridor resp effort mild increased, oxygen in place s1s2 abd soft, +Bs hyperactive gen weakness/mild AAOx3 anxious skin pale, dry Results & Data Vital Signs (Past 12 Hours) Vital Signs Temp Pulse Pulse Pulse Pulse Resp BP 04/03/24 16:05 82 04/03/24 16:00 36.4 C L 75 18 133/62 04/03/24 14:26 04/03/24 11:07 111/61 04/03/24 10:00 04/03/24 09:28 04/03/24 09:27 97/45 L 04/03/24 08:53 36.0 C L 89 14 86/52 L 04/03/24 07:39 36.7 C 88 16 96/56 L 04/03/24 06:20 36.9 C 100 H 20 100/50 L BP Pulse Ox Pulse Ox Pulse Ox O2 Del Method O2 Flow Rate O2 Flow Rate 04/03/24 16:05 04/03/24 16:00 94 Nasal Cannula 2.0 04/03/24 14:26 94 85 L 4 04/03/24 11:07 04/03/24 10:00 Nasal Cannula 2 04/03/24 09:28 Nasal Cannula 3 04/03/24 09:27 78/44 L 04/03/24 08:53 Nasal Cannula 3 04/03/24 07:39 92 Nasal Cannula 3 04/03/24 06:20 90 Oxymask 2 O2 Flow Rate 04/03/24 16:05 04/03/24 16:00 04/03/24 14:26 0 04/03/24 11:07 04/03/24 10:00 04/03/24 09:28 04/03/24 09:27 04/03/24 08:53 04/03/24 07:39 04/03/24 06:20 Laboratory Results 04/03/24 04/03/24 04/03/24 Range/Units 16:01 11:09 11:05 WBC (4.8-10.8) K/ul RBC (4.70-6.10) M/uL Hgb (14.0-18.0) g/dl Hct (42.0-52.0) % MCV (80.0-100.0) fL MCH (25.0-34.0) pg MCHC (32.0-36.0) g/dL RDW Std Deviation (36.4-46.3) fL RDW Coeff of Jono (11.5-14.5) % Plt Count (130-400) K/uL MPV (9.4-12.4) fL Immature Gran % (Auto) % Neut % (Auto) % Lymph % (Auto) % Cidra % (Auto) % Eos % (Auto) % Baso % (Auto) % Neut # (Auto) (1.40-6.50) K/uL Lymph # (Auto) (1.20-3.40) K/uL Cidra # (Auto) (0.11-0.59) K/uL Eos # (Auto) (0.00-0.50) K/uL Baso # (Auto) (0.00-0.20) K/uL Immature Gran # (Auto) (0.01-0.20) K/uL Platelet Estimate (Normal) PT (9.0-12.0) Seconds INR (0.9-1.1) APTT (21-31) Seconds PTT Ratio VBG pH (7.36-7.41) VBG pCO2 (38-50) mmHg VBG pO2 mmHg VBG HCO3 mmol/L VBG O2 Saturation % VBG Base Excess mEq/L Sodium (136-145) mmol/L Potassium (3.5-5.1) mmol/L Chloride (98-107) mmol/L Carbon Dioxide (21-32) mmol/L Anion Gap (3-11) BUN (6-23) mg/dl Creatinine (0.6-1.4) mg/dl Est Cr Clr Drug Dosing eGFR BUN/Creatinine Ratio (10-20) Glucose (70-99(Fasting)) mg/dl POC Glucose 183 H 162 H (70-99) mg/dl Lactate (0.4-2.0) mmol/L Calcium (8.6-10.3) mg/dl Phosphorus (2.5-4.9) mg/dl Magnesium (1.7-2.4) mg/dl Total Bilirubin (0.2-1.0) mg/dl AST (13-39) U/L ALT (7-52) U/L Alkaline Phosphatase (34-104) U/L Total Creatine Kinase (30-223) U/L Troponin I High Sens (0-20) pg/ml C-Reactive Protein (0-0.5) mg/dl B-Natriuretic Peptide (0-100) pg/ml Total Protein (6.0-8.3) gm/dl Albumin (3.4-5.0) gm/dl Globulin (2.5-4.0) gm/dl Albumin/Globulin Ratio (0.9-2) Procalcitonin (0-0.5) ng/ml Random Cortisol 22.58 mcg/dl ACTH Pending Urine Color Urine Appearance (Clear) Urine pH (4.5-7.5) Ur Specific Gunter (1.000-1.030) Urine Protein (Negative) Urine Glucose (UA) (Negative) Urine Ketones (Negative) Urine Blood (Negative) Urine Nitrite (Negative) Urine Bilirubin (Negative) Urine Urobilinogen (Negative) Ur Leukocyte Esterase (Negative) Urine WBC (Auto) (0-5) /hpf Urine RBC (Auto) (0-2) /hpf U Hyaline Cast (Auto) (0-2) /lpf U Epithel Cells (Auto) (0-2) /hpf Urine Bacteria (Auto) (None Seen) Stl C. cayetanensis PCR (NotDetected) Stool Rotavirus A PCR (NotDetected) Stl Adenov F 40/41 PCR (NotDetected) Stool Astrovirus (PCR) (NotDetected) Stool Campylobacter PCR (NotDetected) Stool Cryptosporidium PCR (NotDetected) Stl E.coli Shiga Tox PCR (NotDetected) Stl Enterotoxigenic E PCR (NotDetected) Stool EPEC (PCR) (NotDetected) Stool EAEC (PCR) (NotDetected) Stl E. histolytica PCR (NotDetected) Stool Giardia Lamblia PCR (NotDetected) Stool Salmonella PCR (NotDetected) Stool Sapovirus (PCR) (NotDetected) Stl P. shigelloides PCR (NotDetected) Stl Shigella/EIEC PCR (NotDetected) St Y.enterocolitica PCR (NotDetected) Stool Vibrio (PCR) (NotDetected) Stl Vibrio cholerae PCR (NotDetected) Stl Norovirus GI/GII PCR (NotDetected) Adenovirus (PCR) (NotDetected) B. pertussis DNA (PCR) (NotDetected) B.parapertussis DNA PCR (NotDetected) C. pneumoniae DNA (PCR) (NotDetected) Coronavirus OC43 (PCR) (NotDetected) Coronavirus HKU1 (PCR) (NotDetected) Coronavirus 229E (PCR) (NotDetected) SARS-CoV-2 (PCR) (Negative) Coronavirus NL63 (PCR) (NotDetected) Human Metapneumovir PCR (NotDetected) Influenza Type A (PCR) (Neg) Influenza Type B (PCR) (Neg) M. pneumoniae (PCR) (NotDetected) Parainfluenza 1 (PCR) (NotDetected) Parainfluenza 2 (PCR) (NotDetected) Parainfluenza 3 (PCR) (NotDetected) Parainfluenza 4 (PCR) (NotDetected) RSV (RT-PCR) (Neg) RSV (PCR) (NotDetected) Entero/Rhino (PCR) (NotDetected) 04/03/24 04/03/24 04/03/24 Range/Units 09:04 06:56 06:30 WBC 0.39 L* (4.8-10.8) K/ul RBC 2.71 L (4.70-6.10) M/uL Hgb 8.8 L (14.0-18.0) g/dl Hct 26.1 L (42.0-52.0) % MCV 96.3 (80.0-100.0) fL MCH 32.5 (25.0-34.0) pg MCHC 33.7 (32.0-36.0) g/dL RDW Std Deviation 52.7 H (36.4-46.3) fL RDW Coeff of Jono 15.1 H (11.5-14.5) % Plt Count 83 L (130-400) K/uL MPV 10.0 (9.4-12.4) fL Immature Gran % (Auto) % Neut % (Auto) % Lymph % (Auto) % Cidra % (Auto) % Eos % (Auto) % Baso % (Auto) % Neut # (Auto) < 0.50 L* (1.40-6.50) K/uL Lymph # (Auto) (1.20-3.40) K/uL Cidra # (Auto) (0.11-0.59) K/uL Eos # (Auto) (0.00-0.50) K/uL Baso # (Auto) (0.00-0.20) K/uL Immature Gran # (Auto) (0.01-0.20) K/uL Platelet Estimate (Normal) PT 10.9 (9.0-12.0) Seconds INR 1.0 (0.9-1.1) APTT 29 (21-31) Seconds PTT Ratio 1.1 VBG pH (7.36-7.41) VBG pCO2 (38-50) mmHg VBG pO2 mmHg VBG HCO3 mmol/L VBG O2 Saturation % VBG Base Excess mEq/L Sodium 132 L (136-145) mmol/L Potassium 4.7 (3.5-5.1) mmol/L Chloride 105 (98-107) mmol/L Carbon Dioxide 22 (21-32) mmol/L Anion Gap 5 (3-11) BUN 40 H (6-23) mg/dl Creatinine 1.97 H (0.6-1.4) mg/dl Est Cr Clr Drug Dosing 36.5 eGFR 34.36 BUN/Creatinine Ratio 20.3 H (10-20) Glucose 105 H (70-99(Fasting)) mg/dl POC Glucose (70-99) mg/dl Lactate (0.4-2.0) mmol/L Calcium 8.9 (8.6-10.3) mg/dl Phosphorus (2.5-4.9) mg/dl Magnesium (1.7-2.4) mg/dl Total Bilirubin (0.2-1.0) mg/dl AST (13-39) U/L ALT (7-52) U/L Alkaline Phosphatase (34-104) U/L Total Creatine Kinase (30-223) U/L Troponin I High Sens (0-20) pg/ml C-Reactive Protein 9.14 H (0-0.5) mg/dl B-Natriuretic Peptide (0-100) pg/ml Total Protein (6.0-8.3) gm/dl Albumin (3.4-5.0) gm/dl Globulin (2.5-4.0) gm/dl Albumin/Globulin Ratio (0.9-2) Procalcitonin (0-0.5) ng/ml Random Cortisol mcg/dl ACTH Urine Color Urine Appearance (Clear) Urine pH (4.5-7.5) Ur Specific Gunter (1.000-1.030) Urine Protein (Negative) Urine Glucose (UA) (Negative) Urine Ketones (Negative) Urine Blood (Negative) Urine Nitrite (Negative) Urine Bilirubin (Negative) Urine Urobilinogen (Negative) Ur Leukocyte Esterase (Negative) Urine WBC (Auto) (0-5) /hpf Urine RBC (Auto) (0-2) /hpf U Hyaline Cast (Auto) (0-2) /lpf U Epithel Cells (Auto) (0-2) /hpf Urine Bacteria (Auto) (None Seen) Stl C. cayetanensis PCR Not Detected (NotDetected) Stool Rotavirus A PCR Not Detected (NotDetected) Stl Adenov F 40/41 PCR Not Detected (NotDetected) Stool Astrovirus (PCR) Not Detected (NotDetected) Stool Campylobacter PCR Not Detected (NotDetected) Stool Cryptosporidium PCR Not Detected (NotDetected) Stl E.coli Shiga Tox PCR Not Detected (NotDetected) Stl Enterotoxigenic E PCR Not Detected (NotDetected) Stool EPEC (PCR) Not Detected (NotDetected) Stool EAEC (PCR) Not Detected (NotDetected) Stl E. histolytica PCR Not Detected (NotDetected) Stool Giardia Lamblia PCR Not Detected (NotDetected) Stool Salmonella PCR Not Detected (NotDetected) Stool Sapovirus (PCR) Not Detected (NotDetected) Stl P. shigelloides PCR Not Detected (NotDetected) Stl Shigella/EIEC PCR Not Detected (NotDetected) St Y.enterocolitica PCR Not Detected (NotDetected) Stool Vibrio (PCR) Not Detected (NotDetected) Stl Vibrio cholerae PCR Not Detected (NotDetected) Stl Norovirus GI/GII PCR Not Detected (NotDetected) Adenovirus (PCR) (NotDetected) B. pertussis DNA (PCR) (NotDetected) B.parapertussis DNA PCR (NotDetected) C. pneumoniae DNA (PCR) (NotDetected) Coronavirus OC43 (PCR) (NotDetected) Coronavirus HKU1 (PCR) (NotDetected) Coronavirus 229E (PCR) (NotDetected) SARS-CoV-2 (PCR) (Negative) Coronavirus NL63 (PCR) (NotDetected) Human Metapneumovir PCR (NotDetected) Influenza Type A (PCR) (Neg) Influenza Type B (PCR) (Neg) M. pneumoniae (PCR) (NotDetected) Parainfluenza 1 (PCR) (NotDetected) Parainfluenza 2 (PCR) (NotDetected) Parainfluenza 3 (PCR) (NotDetected) Parainfluenza 4 (PCR) (NotDetected) RSV (RT-PCR) (Neg) RSV (PCR) (NotDetected) Entero/Rhino (PCR) (NotDetected) 04/03/24 04/02/24 04/02/24 Range/Units 06:13 22:10 20:18 WBC (4.8-10.8) K/ul RBC (4.70-6.10) M/uL Hgb (14.0-18.0) g/dl Hct (42.0-52.0) % MCV (80.0-100.0) fL MCH (25.0-34.0) pg MCHC (32.0-36.0) g/dL RDW Std Deviation (36.4-46.3) fL RDW Coeff of Jono (11.5-14.5) % Plt Count (130-400) K/uL MPV (9.4-12.4) fL Immature Gran % (Auto) % Neut % (Auto) % Lymph % (Auto) % [place]ra % (Auto) % Eos % (Auto) % Baso % (Auto) % Neut # (Auto) (1.40-6.50) K/uL Lymph # (Auto) (1.20-3.40) K/uL Cidra # (Auto) (0.11-0.59) K/uL Eos # (Auto) (0.00-0.50) K/uL Baso # (Auto) (0.00-0.20) K/uL Immature Gran # (Auto) (0.01-0.20) K/uL Platelet Estimate (Normal) PT (9.0-12.0) Seconds INR (0.9-1.1) APTT (21-31) Seconds PTT Ratio VBG pH (7.36-7.41) VBG pCO2 (38-50) mmHg VBG pO2 mmHg VBG HCO3 mmol/L VBG O2 Saturation % VBG Base Excess mEq/L Sodium (136-145) mmol/L Potassium (3.5-5.1) mmol/L Chloride (98-107) mmol/L Carbon Dioxide (21-32) mmol/L Anion Gap (3-11) BUN (6-23) mg/dl Creatinine (0.6-1.4) mg/dl Est Cr Clr Drug Dosing eGFR BUN/Creatinine Ratio (10-20) Glucose (70-99(Fasting)) mg/dl POC Glucose 128 H 104 H 114 H (70-99) mg/dl Lactate (0.4-2.0) mmol/L Calcium (8.6-10.3) mg/dl Phosphorus (2.5-4.9) mg/dl Magnesium (1.7-2.4) mg/dl Total Bilirubin (0.2-1.0) mg/dl AST (13-39) U/L ALT (7-52) U/L Alkaline Phosphatase (34-104) U/L Total Creatine Kinase (30-223) U/L Troponin I High Sens (0-20) pg/ml C-Reactive Protein (0-0.5) mg/dl B-Natriuretic Peptide (0-100) pg/ml Total Protein (6.0-8.3) gm/dl Albumin (3.4-5.0) gm/dl Globulin (2.5-4.0) gm/dl Albumin/Globulin Ratio (0.9-2) Procalcitonin (0-0.5) ng/ml Random Cortisol mcg/dl ACTH Urine Color Urine Appearance (Clear) Urine pH (4.5-7.5) Ur Specific Gunter (1.000-1.030) Urine Protein (Negative) Urine Glucose (UA) (Negative) Urine Ketones (Negative) Urine Blood (Negative) Urine Nitrite (Negative) Urine Bilirubin (Negative) Urine Urobilinogen (Negative) Ur Leukocyte Esterase (Negative) Urine WBC (Auto) (0-5) /hpf Urine RBC (Auto) (0-2) /hpf U Hyaline Cast (Auto) (0-2) /lpf U Epithel Cells (Auto) (0-2) /hpf Urine Bacteria (Auto) (None Seen) Stl C. cayetanensis PCR (NotDetected) Stool Rotavirus A PCR (NotDetected) Stl Adenov F 40/41 PCR (NotDetected) Stool Astrovirus (PCR) (NotDetected) Stool Campylobacter PCR (NotDetected) Stool Cryptosporidium PCR (NotDetected) Stl E.coli Shiga Tox PCR (NotDetected) Stl Enterotoxigenic E PCR (NotDetected) Stool EPEC (PCR) (NotDetected) Stool EAEC (PCR) (NotDetected) Stl E. histolytica PCR (NotDetected) Stool Giardia Lamblia PCR (NotDetected) Stool Salmonella PCR (NotDetected) Stool Sapovirus (PCR) (NotDetected) Stl P. shigelloides PCR (NotDetected) Stl Shigella/EIEC PCR (NotDetected) St Y.enterocolitica PCR (NotDetected) Stool Vibrio (PCR) (NotDetected) Stl Vibrio cholerae PCR (NotDetected) Stl Norovirus GI/GII PCR (NotDetected) Adenovirus (PCR) (NotDetected) B. pertussis DNA (PCR) (NotDetected) B.parapertussis DNA PCR (NotDetected) C. pneumoniae DNA (PCR) (NotDetected) Coronavirus OC43 (PCR) (NotDetected) Coronavirus HKU1 (PCR) (NotDetected) Coronavirus 229E (PCR) (NotDetected) SARS-CoV-2 (PCR) (Negative) Coronavirus NL63 (PCR) (NotDetected) Human Metapneumovir PCR (NotDetected) Influenza Type A (PCR) (Neg) Influenza Type B (PCR) (Neg) M. pneumoniae (PCR) (NotDetected) Parainfluenza 1 (PCR) (NotDetected) Parainfluenza 2 (PCR) (NotDetected) Parainfluenza 3 (PCR) (NotDetected) Parainfluenza 4 (PCR) (NotDetected) RSV (RT-PCR) (Neg) RSV (PCR) (NotDetected) Entero/Rhino (PCR) (NotDetected) 04/02/24 04/02/24 04/02/24 Range/Units 16:27 11:41 07:38 WBC (4.8-10.8) K/ul RBC (4.70-6.10) M/uL Hgb (14.0-18.0) g/dl Hct (42.0-52.0) % MCV (80.0-100.0) fL MCH (25.0-34.0) pg MCHC (32.0-36.0) g/dL RDW Std Deviation (36.4-46.3) fL RDW Coeff of Jono (11.5-14.5) % Plt Count (130-400) K/uL MPV (9.4-12.4) fL Immature Gran % (Auto) % Neut % (Auto) % Lymph % (Auto) % Cidra % (Auto) % Eos % (Auto) % Baso % (Auto) % Neut # (Auto) (1.40-6.50) K/uL Lymph # (Auto) (1.20-3.40) K/uL Cidra # (Auto) (0.11-0.59) K/uL Eos # (Auto) (0.00-0.50) K/uL Baso # (Auto) (0.00-0.20) K/uL Immature Gran # (Auto) (0.01-0.20) K/uL Platelet Estimate (Normal) PT (9.0-12.0) Seconds INR (0.9-1.1) APTT (21-31) Seconds PTT Ratio VBG pH (7.36-7.41) VBG pCO2 (38-50) mmHg VBG pO2 mmHg VBG HCO3 mmol/L VBG O2 Saturation % VBG Base Excess mEq/L Sodium (136-145) mmol/L Potassium (3.5-5.1) mmol/L Chloride (98-107) mmol/L Carbon Dioxide (21-32) mmol/L Anion Gap (3-11) BUN (6-23) mg/dl Creatinine (0.6-1.4) mg/dl Est Cr Clr Drug Dosing eGFR BUN/Creatinine Ratio (10-20) Glucose (70-99(Fasting)) mg/dl POC Glucose 133 H 124 H 71 (70-99) mg/dl Lactate (0.4-2.0) mmol/L Calcium (8.6-10.3) mg/dl Phosphorus (2.5-4.9) mg/dl Magnesium (1.7-2.4) mg/dl Total Bilirubin (0.2-1.0) mg/dl AST (13-39) U/L ALT (7-52) U/L Alkaline Phosphatase (34-104) U/L Total Creatine Kinase (30-223) U/L Troponin I High Sens (0-20) pg/ml C-Reactive Protein (0-0.5) mg/dl B-Natriuretic Peptide (0-100) pg/ml Total Protein (6.0-8.3) gm/dl Albumin (3.4-5.0) gm/dl Globulin (2.5-4.0) gm/dl Albumin/Globulin Ratio (0.9-2) Procalcitonin (0-0.5) ng/ml Random Cortisol mcg/dl ACTH Urine Color Urine Appearance (Clear) Urine pH (4.5-7.5) Ur Specific Gunter (1.000-1.030) Urine Protein (Negative) Urine Glucose (UA) (Negative) Urine Ketones (Negative) Urine Blood (Negative) Urine Nitrite (Negative) Urine Bilirubin (Negative) Urine Urobilinogen (Negative) Ur Leukocyte Esterase (Negative) Urine WBC (Auto) (0-5) /hpf Urine RBC (Auto) (0-2) /hpf U Hyaline Cast (Auto) (0-2) /lpf U Epithel Cells (Auto) (0-2) /hpf Urine Bacteria (Auto) (None Seen) Stl C. cayetanensis PCR (NotDetected) Stool Rotavirus A PCR (NotDetected) Stl Adenov F 40/41 PCR (NotDetected) Stool Astrovirus (PCR) (NotDetected) Stool Campylobacter PCR (NotDetected) Stool Cryptosporidium PCR (NotDetected) Stl E.coli Shiga Tox PCR (NotDetected) Stl Enterotoxigenic E PCR (NotDetected) Stool EPEC (PCR) (NotDetected) Stool EAEC (PCR) (NotDetected) Stl E. histolytica PCR (NotDetected) Stool Giardia Lamblia PCR (NotDetected) Stool Salmonella PCR (NotDetected) Stool Sapovirus (PCR) (NotDetected) Stl P. shigelloides PCR (NotDetected) Stl Shigella/EIEC PCR (NotDetected) St Y.enterocolitica PCR (NotDetected) Stool Vibrio (PCR) (NotDetected) Stl Vibrio cholerae PCR (NotDetected) Stl Norovirus GI/GII PCR (NotDetected) Adenovirus (PCR) (NotDetected) B. pertussis DNA (PCR) (NotDetected) B.parapertussis DNA PCR (NotDetected) C. pneumoniae DNA (PCR) (NotDetected) Coronavirus OC43 (PCR) (NotDetected) Coronavirus HKU1 (PCR) (NotDetected) Coronavirus 229E (PCR) (NotDetected) SARS-CoV-2 (PCR) (Negative) Coronavirus NL63 (PCR) (NotDetected) Human Metapneumovir PCR (NotDetected) Influenza Type A (PCR) (Neg) Influenza Type B (PCR) (Neg) M. pneumoniae (PCR) (NotDetected) Parainfluenza 1 (PCR) (NotDetected) Parainfluenza 2 (PCR) (NotDetected) Parainfluenza 3 (PCR) (NotDetected) Parainfluenza 4 (PCR) (NotDetected) RSV (RT-PCR) (Neg) RSV (PCR) (NotDetected) Entero/Rhino (PCR) (NotDetected) 04/02/24 04/02/24 04/02/24 Range/Units 06:50 04:10 00:05 WBC 1.88 L (4.8-10.8) K/ul RBC 2.53 L (4.70-6.10) M/uL Hgb 8.4 L (14.0-18.0) g/dl Hct 25.1 L (42.0-52.0) % MCV 99.2 (80.0-100.0) fL MCH 33.2 (25.0-34.0) pg MCHC 33.5 (32.0-36.0) g/dL RDW Std Deviation 56.7 H (36.4-46.3) fL RDW Coeff of Jono 15.6 H (11.5-14.5) % Plt Count 94 L (130-400) K/uL MPV 9.8 (9.4-12.4) fL Immature Gran % (Auto) % Neut % (Auto) % Lymph % (Auto) % [place] % (Auto) % Eos % (Auto) % Baso % (Auto) % Neut # (Auto) (1.40-6.50) K/uL Lymph # (Auto) (1.20-3.40) K/uL [place] # (Auto) (0.11-0.59) K/uL Eos # (Auto) (0.00-0.50) K/uL Baso # (Auto) (0.00-0.20) K/uL Immature Gran # (Auto) (0.01-0.20) K/uL Platelet Estimate Decreased L (Normal) PT (9.0-12.0) Seconds INR (0.9-1.1) APTT (21-31) Seconds PTT Ratio VBG pH (7.36-7.41) VBG pCO2 (38-50) mmHg VBG pO2 mmHg VBG HCO3 mmol/L VBG O2 Saturation % VBG Base Excess mEq/L Sodium 134 L (136-145) mmol/L Potassium 4.2 (3.5-5.1) mmol/L Chloride 104 (98-107) mmol/L Carbon Dioxide 26 (21-32) mmol/L Anion Gap 4 (3-11) BUN 41 H (6-23) mg/dl Creatinine 1.90 H (0.6-1.4) mg/dl Est Cr Clr Drug Dosing 37.8 eGFR 35.88 BUN/Creatinine Ratio 21.6 H (10-20) Glucose 55 L (70-99(Fasting)) mg/dl POC Glucose 80 103 H (70-99) mg/dl Lactate (0.4-2.0) mmol/L Calcium 8.5 L (8.6-10.3) mg/dl Phosphorus (2.5-4.9) mg/dl Magnesium (1.7-2.4) mg/dl Total Bilirubin (0.2-1.0) mg/dl AST (13-39) U/L ALT (7-52) U/L Alkaline Phosphatase (34-104) U/L Total Creatine Kinase (30-223) U/L Troponin I High Sens (0-20) pg/ml C-Reactive Protein 6.96 H (0-0.5) mg/dl B-Natriuretic Peptide (0-100) pg/ml Total Protein (6.0-8.3) gm/dl Albumin (3.4-5.0) gm/dl Globulin (2.5-4.0) gm/dl Albumin/Globulin Ratio (0.9-2) Procalcitonin 0.13 (0-0.5) ng/ml Random Cortisol mcg/dl ACTH Urine Color Urine Appearance (Clear) Urine pH (4.5-7.5) Ur Specific Gunter (1.000-1.030) Urine Protein (Negative) Urine Glucose (UA) (Negative) Urine Ketones (Negative) Urine Blood (Negative) Urine Nitrite (Negative) Urine Bilirubin (Negative) Urine Urobilinogen (Negative) Ur Leukocyte Esterase (Negative) Urine WBC (Auto) (0-5) /hpf Urine RBC (Auto) (0-2) /hpf U Hyaline Cast (Auto) (0-2) /lpf U Epithel Cells (Auto) (0-2) /hpf Urine Bacteria (Auto) (None Seen) Stl C. cayetanensis PCR (NotDetected) Stool Rotavirus A PCR (NotDetected) Stl Adenov F 40/41 PCR (NotDetected) Stool Astrovirus (PCR) (NotDetected) Stool Campylobacter PCR (NotDetected) Stool Cryptosporidium PCR (NotDetected) Stl E.coli Shiga Tox PCR (NotDetected) Stl Enterotoxigenic E PCR (NotDetected) Stool EPEC (PCR) (NotDetected) Stool EAEC (PCR) (NotDetected) Stl E. histolytica PCR (NotDetected) Stool Giardia Lamblia PCR (NotDetected) Stool Salmonella PCR (NotDetected) Stool Sapovirus (PCR) (NotDetected) Stl P. shigelloides PCR (NotDetected) Stl Shigella/EIEC PCR (NotDetected) St Y.enterocolitica PCR (NotDetected) Stool Vibrio (PCR) (NotDetected) Stl Vibrio cholerae PCR (NotDetected) Stl Norovirus GI/GII PCR (NotDetected) Adenovirus (PCR) (NotDetected) B. pertussis DNA (PCR) (NotDetected) B.parapertussis DNA PCR (NotDetected) C. pneumoniae DNA (PCR) (NotDetected) Coronavirus OC43 (PCR) (NotDetected) Coronavirus HKU1 (PCR) (NotDetected) Coronavirus 229E (PCR) (NotDetected) SARS-CoV-2 (PCR) (Negative) Coronavirus NL63 (PCR) (NotDetected) Human Metapneumovir PCR (NotDetected) Influenza Type A (PCR) (Neg) Influenza Type B (PCR) (Neg) M. pneumoniae (PCR) (NotDetected) Parainfluenza 1 (PCR) (NotDetected) Parainfluenza 2 (PCR) (NotDetected) Parainfluenza 3 (PCR) (NotDetected) Parainfluenza 4 (PCR) (NotDetected) RSV (RT-PCR) (Neg) RSV (PCR) (NotDetected) Entero/Rhino (PCR) (NotDetected) 04/01/24 04/01/24 04/01/24 Range/Units 20:04 16:27 11:22 WBC (4.8-10.8) K/ul RBC (4.70-6.10) M/uL Hgb (14.0-18.0) g/dl Hct (42.0-52.0) % MCV (80.0-100.0) fL MCH (25.0-34.0) pg MCHC (32.0-36.0) g/dL RDW Std Deviation (36.4-46.3) fL RDW Coeff of Jono (11.5-14.5) % Plt Count (130-400) K/uL MPV (9.4-12.4) fL Immature Gran % (Auto) % Neut % (Auto) % Lymph % (Auto) % [place] % (Auto) % Eos % (Auto) % Baso % (Auto) % Neut # (Auto) (1.40-6.50) K/uL Lymph # (Auto) (1.20-3.40) K/uL [place] # (Auto) (0.11-0.59) K/uL Eos # (Auto) (0.00-0.50) K/uL Baso # (Auto) (0.00-0.20) K/uL Immature Gran # (Auto) (0.01-0.20) K/uL Platelet Estimate (Normal) PT (9.0-12.0) Seconds INR (0.9-1.1) APTT (21-31) Seconds PTT Ratio VBG pH (7.36-7.41) VBG pCO2 (38-50) mmHg VBG pO2 mmHg VBG HCO3 mmol/L VBG O2 Saturation % VBG Base Excess mEq/L Sodium (136-145) mmol/L Potassium (3.5-5.1) mmol/L Chloride (98-107) mmol/L Carbon Dioxide (21-32) mmol/L Anion Gap (3-11) BUN (6-23) mg/dl Creatinine (0.6-1.4) mg/dl Est Cr Clr Drug Dosing eGFR BUN/Creatinine Ratio (10-20) Glucose (70-99(Fasting)) mg/dl POC Glucose 172 H 151 H 178 H (70-99) mg/dl Lactate (0.4-2.0) mmol/L Calcium (8.6-10.3) mg/dl Phosphorus (2.5-4.9) mg/dl Magnesium (1.7-2.4) mg/dl Total Bilirubin (0.2-1.0) mg/dl AST (13-39) U/L ALT (7-52) U/L Alkaline Phosphatase (34-104) U/L Total Creatine Kinase (30-223) U/L Troponin I High Sens (0-20) pg/ml C-Reactive Protein (0-0.5) mg/dl B-Natriuretic Peptide (0-100) pg/ml Total Protein (6.0-8.3) gm/dl Albumin (3.4-5.0) gm/dl Globulin (2.5-4.0) gm/dl Albumin/Globulin Ratio (0.9-2) Procalcitonin (0-0.5) ng/ml Random Cortisol mcg/dl ACTH Urine Color Urine Appearance (Clear) Urine pH (4.5-7.5) Ur Specific Gunter (1.000-1.030) Urine Protein (Negative) Urine Glucose (UA) (Negative) Urine Ketones (Negative) Urine Blood (Negative) Urine Nitrite (Negative) Urine Bilirubin (Negative) Urine Urobilinogen (Negative) Ur Leukocyte Esterase (Negative) Urine WBC (Auto) (0-5) /hpf Urine RBC (Auto) (0-2) /hpf U Hyaline Cast (Auto) (0-2) /lpf U Epithel Cells (Auto) (0-2) /hpf Urine Bacteria (Auto) (None Seen) Stl C. cayetanensis PCR (NotDetected) Stool Rotavirus A PCR (NotDetected) Stl Adenov F 40/41 PCR (NotDetected) Stool Astrovirus (PCR) (NotDetected) Stool Campylobacter PCR (NotDetected) Stool Cryptosporidium PCR (NotDetected) Stl E.coli Shiga Tox PCR (NotDetected) Stl Enterotoxigenic E PCR (NotDetected) Stool EPEC (PCR) (NotDetected) Stool EAEC (PCR) (NotDetected) Stl E. histolytica PCR (NotDetected) Stool Giardia Lamblia PCR (NotDetected) Stool Salmonella PCR (NotDetected) Stool Sapovirus (PCR) (NotDetected) Stl P. shigelloides PCR (NotDetected) Stl Shigella/EIEC PCR (NotDetected) St Y.enterocolitica PCR (NotDetected) Stool Vibrio (PCR) (NotDetected) Stl Vibrio cholerae PCR (NotDetected) Stl Norovirus GI/GII PCR (NotDetected) Adenovirus (PCR) (NotDetected) B. pertussis DNA (PCR) (NotDetected) B.parapertussis DNA PCR (NotDetected) C. pneumoniae DNA (PCR) (NotDetected) Coronavirus OC43 (PCR) (NotDetected) Coronavirus HKU1 (PCR) (NotDetected) Coronavirus 229E (PCR) (NotDetected) SARS-CoV-2 (PCR) (Negative) Coronavirus NL63 (PCR) (NotDetected) Human Metapneumovir PCR (NotDetected) Influenza Type A (PCR) (Neg) Influenza Type B (PCR) (Neg) M. pneumoniae (PCR) (NotDetected) Parainfluenza 1 (PCR) (NotDetected) Parainfluenza 2 (PCR) (NotDetected) Parainfluenza 3 (PCR) (NotDetected) Parainfluenza 4 (PCR) (NotDetected) RSV (RT-PCR) (Neg) RSV (PCR) (NotDetected) Entero/Rhino (PCR) (NotDetected) 04/01/24 04/01/24 04/01/24 Range/Units 10:29 09:08 07:57 WBC (4.8-10.8) K/ul RBC (4.70-6.10) M/uL Hgb (14.0-18.0) g/dl Hct (42.0-52.0) % MCV (80.0-100.0) fL MCH (25.0-34.0) pg MCHC (32.0-36.0) g/dL RDW Std Deviation (36.4-46.3) fL RDW Coeff of Jono (11.5-14.5) % Plt Count (130-400) K/uL MPV (9.4-12.4) fL Immature Gran % (Auto) % Neut % (Auto) % Lymph % (Auto) % [place] % (Auto) % Eos % (Auto) % Baso % (Auto) % Neut # (Auto) (1.40-6.50) K/uL Lymph # (Auto) (1.20-3.40) K/uL [place] # (Auto) (0.11-0.59) K/uL Eos # (Auto) (0.00-0.50) K/uL Baso # (Auto) (0.00-0.20) K/uL Immature Gran # (Auto) (0.01-0.20) K/uL Platelet Estimate (Normal) PT (9.0-12.0) Seconds INR (0.9-1.1) APTT (21-31) Seconds PTT Ratio VBG pH (7.36-7.41) VBG pCO2 (38-50) mmHg VBG pO2 mmHg VBG HCO3 mmol/L VBG O2 Saturation % VBG Base Excess mEq/L Sodium (136-145) mmol/L Potassium (3.5-5.1) mmol/L Chloride (98-107) mmol/L Carbon Dioxide (21-32) mmol/L Anion Gap (3-11) BUN (6-23) mg/dl Creatinine (0.6-1.4) mg/dl Est Cr Clr Drug Dosing eGFR BUN/Creatinine Ratio (10-20) Glucose (70-99(Fasting)) mg/dl POC Glucose 223 H 174 H (70-99) mg/dl Lactate (0.4-2.0) mmol/L Calcium (8.6-10.3) mg/dl Phosphorus (2.5-4.9) mg/dl Magnesium (1.7-2.4) mg/dl Total Bilirubin (0.2-1.0) mg/dl AST (13-39) U/L ALT (7-52) U/L Alkaline Phosphatase (34-104) U/L Total Creatine Kinase (30-223) U/L Troponin I High Sens 22.2 H (0-20) pg/ml C-Reactive Protein (0-0.5) mg/dl B-Natriuretic Peptide (0-100) pg/ml Total Protein (6.0-8.3) gm/dl Albumin (3.4-5.0) gm/dl Globulin (2.5-4.0) gm/dl Albumin/Globulin Ratio (0.9-2) Procalcitonin (0-0.5) ng/ml Random Cortisol mcg/dl ACTH Urine Color Urine Appearance (Clear) Urine pH (4.5-7.5) Ur Specific Gunter (1.000-1.030) Urine Protein (Negative) Urine Glucose (UA) (Negative) Urine Ketones (Negative) Urine Blood (Negative) Urine Nitrite (Negative) Urine Bilirubin (Negative) Urine Urobilinogen (Negative) Ur Leukocyte Esterase (Negative) Urine WBC (Auto) (0-5) /hpf Urine RBC (Auto) (0-2) /hpf U Hyaline Cast (Auto) (0-2) /lpf U Epithel Cells (Auto) (0-2) /hpf Urine Bacteria (Auto) (None Seen) Stl C. cayetanensis PCR (NotDetected) Stool Rotavirus A PCR (NotDetected) Stl Adenov F 40/41 PCR (NotDetected) Stool Astrovirus (PCR) (NotDetected) Stool Campylobacter PCR (NotDetected) Stool Cryptosporidium PCR (NotDetected) Stl E.coli Shiga Tox PCR (NotDetected) Stl Enterotoxigenic E PCR (NotDetected) Stool EPEC (PCR) (NotDetected) Stool EAEC (PCR) (NotDetected) Stl E. histolytica PCR (NotDetected) Stool Giardia Lamblia PCR (NotDetected) Stool Salmonella PCR (NotDetected) Stool Sapovirus (PCR) (NotDetected) Stl P. shigelloides PCR (NotDetected) Stl Shigella/EIEC PCR (NotDetected) St Y.enterocolitica PCR (NotDetected) Stool Vibrio (PCR) (NotDetected) Stl Vibrio cholerae PCR (NotDetected) Stl Norovirus GI/GII PCR (NotDetected) Adenovirus (PCR) (NotDetected) B. pertussis DNA (PCR) (NotDetected) B.parapertussis DNA PCR (NotDetected) C. pneumoniae DNA (PCR) (NotDetected) Coronavirus OC43 (PCR) (NotDetected) Coronavirus HKU1 (PCR) (NotDetected) Coronavirus 229E (PCR) (NotDetected) SARS-CoV-2 (PCR) (Negative) Coronavirus NL63 (PCR) (NotDetected) Human Metapneumovir PCR (NotDetected) Influenza Type A (PCR) (Neg) Influenza Type B (PCR) (Neg) M. pneumoniae (PCR) (NotDetected) Parainfluenza 1 (PCR) (NotDetected) Parainfluenza 2 (PCR) (NotDetected) Parainfluenza 3 (PCR) (NotDetected) Parainfluenza 4 (PCR) (NotDetected) RSV (RT-PCR) (Neg) RSV (PCR) (NotDetected) Entero/Rhino (PCR) (NotDetected) 04/01/24 04/01/24 04/01/24 Range/Units 07:22 06:49 06:29 WBC (4.8-10.8) K/ul RBC (4.70-6.10) M/uL Hgb (14.0-18.0) g/dl Hct (42.0-52.0) % MCV (80.0-100.0) fL MCH (25.0-34.0) pg MCHC (32.0-36.0) g/dL RDW Std Deviation (36.4-46.3) fL RDW Coeff of Jono (11.5-14.5) % Plt Count (130-400) K/uL MPV (9.4-12.4) fL Immature Gran % (Auto) % Neut % (Auto) % Lymph % (Auto) % [place] % (Auto) % Eos % (Auto) % Baso % (Auto) % Neut # (Auto) (1.40-6.50) K/uL Lymph # (Auto) (1.20-3.40) K/uL [place] # (Auto) (0.11-0.59) K/uL Eos # (Auto) (0.00-0.50) K/uL Baso # (Auto) (0.00-0.20) K/uL Immature Gran # (Auto) (0.01-0.20) K/uL Platelet Estimate (Normal) PT (9.0-12.0) Seconds INR (0.9-1.1) APTT (21-31) Seconds PTT Ratio VBG pH (7.36-7.41) VBG pCO2 (38-50) mmHg VBG pO2 mmHg VBG HCO3 mmol/L VBG O2 Saturation % VBG Base Excess mEq/L Sodium (136-145) mmol/L Potassium (3.5-5.1) mmol/L Chloride (98-107) mmol/L Carbon Dioxide (21-32) mmol/L Anion Gap (3-11) BUN (6-23) mg/dl Creatinine (0.6-1.4) mg/dl Est Cr Clr Drug Dosing eGFR BUN/Creatinine Ratio (10-20) Glucose (70-99(Fasting)) mg/dl POC Glucose 154 H 50 L* 54 L* (70-99) mg/dl Lactate (0.4-2.0) mmol/L Calcium (8.6-10.3) mg/dl Phosphorus (2.5-4.9) mg/dl Magnesium (1.7-2.4) mg/dl Total Bilirubin (0.2-1.0) mg/dl AST (13-39) U/L ALT (7-52) U/L Alkaline Phosphatase (34-104) U/L Total Creatine Kinase (30-223) U/L Troponin I High Sens (0-20) pg/ml C-Reactive Protein (0-0.5) mg/dl B-Natriuretic Peptide (0-100) pg/ml Total Protein (6.0-8.3) gm/dl Albumin (3.4-5.0) gm/dl Globulin (2.5-4.0) gm/dl Albumin/Globulin Ratio (0.9-2) Procalcitonin (0-0.5) ng/ml Random Cortisol mcg/dl ACTH Urine Color Urine Appearance (Clear) Urine pH (4.5-7.5) Ur Specific Gunter (1.000-1.030) Urine Protein (Negative) Urine Glucose (UA) (Negative) Urine Ketones (Negative) Urine Blood (Negative) Urine Nitrite (Negative) Urine Bilirubin (Negative) Urine Urobilinogen (Negative) Ur Leukocyte Esterase (Negative) Urine WBC (Auto) (0-5) /hpf Urine RBC (Auto) (0-2) /hpf U Hyaline Cast (Auto) (0-2) /lpf U Epithel Cells (Auto) (0-2) /hpf Urine Bacteria (Auto) (None Seen) Stl C. cayetanensis PCR (NotDetected) Stool Rotavirus A PCR (NotDetected) Stl Adenov F 40/41 PCR (NotDetected) Stool Astrovirus (PCR) (NotDetected) Stool Campylobacter PCR (NotDetected) Stool Cryptosporidium PCR (NotDetected) Stl E.coli Shiga Tox PCR (NotDetected) Stl Enterotoxigenic E PCR (NotDetected) Stool EPEC (PCR) (NotDetected) Stool EAEC (PCR) (NotDetected) Stl E. histolytica PCR (NotDetected) Stool Giardia Lamblia PCR (NotDetected) Stool Salmonella PCR (NotDetected) Stool Sapovirus (PCR) (NotDetected) Stl P. shigelloides PCR (NotDetected) Stl Shigella/EIEC PCR (NotDetected) St Y.enterocolitica PCR (NotDetected) Stool Vibrio (PCR) (NotDetected) Stl Vibrio cholerae PCR (NotDetected) Stl Norovirus GI/GII PCR (NotDetected) Adenovirus (PCR) (NotDetected) B. pertussis DNA (PCR) (NotDetected) B.parapertussis DNA PCR (NotDetected) C. pneumoniae DNA (PCR) (NotDetected) Coronavirus OC43 (PCR) (NotDetected) Coronavirus HKU1 (PCR) (NotDetected) Coronavirus 229E (PCR) (NotDetected) SARS-CoV-2 (PCR) (Negative) Coronavirus NL63 (PCR) (NotDetected) Human Metapneumovir PCR (NotDetected) Influenza Type A (PCR) (Neg) Influenza Type B (PCR) (Neg) M. pneumoniae (PCR) (NotDetected) Parainfluenza 1 (PCR) (NotDetected) Parainfluenza 2 (PCR) (NotDetected) Parainfluenza 3 (PCR) (NotDetected) Parainfluenza 4 (PCR) (NotDetected) RSV (RT-PCR) (Neg) RSV (PCR) (NotDetected) Entero/Rhino (PCR) (NotDetected) 02/05/25 02/05/25 02/05/25 Range/Units 06:26 03:05 00:31 WBC 3.15 L (4.8-10.8) K/ul RBC 2.95 L (4.70-6.10) M/uL Hgb 9.5 L (14.0-18.0) g/dl Hct 28.9 L (42.0-52.0) % MCV 98.0 (80.0-100.0) fL MCH 32.2 (25.0-34.0) pg MCHC 32.9 (32.0-36.0) g/dL RDW Std Deviation 56.3 H (36.4-46.3) fL RDW Coeff of Jono 15.9 H (11.5-14.5) % Plt Count 123 L (130-400) K/uL MPV 10.0 (9.4-12.4) fL Immature Gran % (Auto) % Neut % (Auto) % Lymph % (Auto) % [place] % (Auto) % Eos % (Auto) % Baso % (Auto) % Neut # (Auto) (1.40-6.50) K/uL Lymph # (Auto) (1.20-3.40) K/uL [place] # (Auto) (0.11-0.59) K/uL Eos # (Auto) (0.00-0.50) K/uL Baso # (Auto) (0.00-0.20) K/uL Immature Gran # (Auto) (0.01-0.20) K/uL Platelet Estimate (Normal) PT (9.0-12.0) Seconds INR (0.9-1.1) APTT (21-31) Seconds PTT Ratio VBG pH (7.36-7.41) VBG pCO2 (38-50) mmHg VBG pO2 mmHg VBG HCO3 mmol/L VBG O2 Saturation % VBG Base Excess mEq/L Sodium 136 (136-145) mmol/L Potassium 4.3 (3.5-5.1) mmol/L Chloride 104 (98-107) mmol/L Carbon Dioxide 28 (21-32) mmol/L Anion Gap 4 (3-11) BUN 46 H (6-23) mg/dl Creatinine 1.75 H (0.6-1.4) mg/dl Est Cr Clr Drug Dosing 41.1 eGFR 39.61 BUN/Creatinine Ratio 26.3 H (10-20) Glucose 47 L* (70-99(Fasting)) mg/dl POC Glucose 90 (70-99) mg/dl Lactate (0.4-2.0) mmol/L Calcium 9.2 (8.6-10.3) mg/dl Phosphorus (2.5-4.9) mg/dl Magnesium (1.7-2.4) mg/dl Total Bilirubin (0.2-1.0) mg/dl AST (13-39) U/L ALT (7-52) U/L Alkaline Phosphatase (34-104) U/L Total Creatine Kinase 35 (30-223) U/L Troponin I High Sens 24.6 H (0-20) pg/ml C-Reactive Protein (0-0.5) mg/dl B-Natriuretic Peptide (0-100) pg/ml Total Protein (6.0-8.3) gm/dl Albumin (3.4-5.0) gm/dl Globulin (2.5-4.0) gm/dl Albumin/Globulin Ratio (0.9-2) Procalcitonin (0-0.5) ng/ml Random Cortisol mcg/dl ACTH Urine Color Yellow Urine Appearance Clear (Clear) Urine pH 6.0 (4.5-7.5) Ur Specific Gunter 1.018 (1.000-1.030) Urine Protein 2+ H (Negative) Urine Glucose (UA) Negative (Negative) Urine Ketones Negative (Negative) Urine Blood Negative (Negative) Urine Nitrite Negative (Negative) Urine Bilirubin Negative (Negative) Urine Urobilinogen Negative (Negative) Ur Leukocyte Esterase Negative (Negative) Urine WBC (Auto) 0-5 (0-5) /hpf Urine RBC (Auto) 0-2 (0-2) /hpf U Hyaline Cast (Auto) 0-2 (0-2) /lpf U Epithel Cells (Auto) 0-2 (0-2) /hpf Urine Bacteria (Auto) None Seen (None Seen) Stl C. cayetanensis PCR (NotDetected) Stool Rotavirus A PCR (NotDetected) Stl Adenov F 40/41 PCR (NotDetected) Stool Astrovirus (PCR) (NotDetected) Stool Campylobacter PCR (NotDetected) Stool Cryptosporidium PCR (NotDetected) Stl E.coli Shiga Tox PCR (NotDetected) Stl Enterotoxigenic E PCR (NotDetected) Stool EPEC (PCR) (NotDetected) Stool EAEC (PCR) (NotDetected) Stl E. histolytica PCR (NotDetected) Stool Giardia Lamblia PCR (NotDetected) Stool Salmonella PCR (NotDetected) Stool Sapovirus (PCR) (NotDetected) Stl P. shigelloides PCR (NotDetected) Stl Shigella/EIEC PCR (NotDetected) St Y.enterocolitica PCR (NotDetected) Stool Vibrio (PCR) (NotDetected) Stl Vibrio cholerae PCR (NotDetected) Stl Norovirus GI/GII PCR (NotDetected) Adenovirus (PCR) (NotDetected) B. pertussis DNA (PCR) (NotDetected) B.parapertussis DNA PCR (NotDetected) C. pneumoniae DNA (PCR) (NotDetected) Coronavirus OC43 (PCR) (NotDetected) Coronavirus HKU1 (PCR) (NotDetected) Coronavirus 229E (PCR) (NotDetected) SARS-CoV-2 (PCR) (Negative) Coronavirus NL63 (PCR) (NotDetected) Human Metapneumovir PCR (NotDetected) Influenza Type A (PCR) (Neg) Influenza Type B (PCR) (Neg) M. pneumoniae (PCR) (NotDetected) Parainfluenza 1 (PCR) (NotDetected) Parainfluenza 2 (PCR) (NotDetected) Parainfluenza 3 (PCR) (NotDetected) Parainfluenza 4 (PCR) (NotDetected) RSV (RT-PCR) (Neg) RSV (PCR) (NotDetected) Entero/Rhino (PCR) (NotDetected) 03/31/24 03/31/24 03/31/24 Range/Units 22:36 22:11 19:00 WBC (4.8-10.8) K/ul RBC (4.70-6.10) M/uL Hgb (14.0-18.0) g/dl Hct (42.0-52.0) % MCV (80.0-100.0) fL MCH (25.0-34.0) pg MCHC (32.0-36.0) g/dL RDW Std Deviation (36.4-46.3) fL RDW Coeff of Jono (11.5-14.5) % Plt Count (130-400) K/uL MPV (9.4-12.4) fL Immature Gran % (Auto) % Neut % (Auto) % Lymph % (Auto) % [place] % (Auto) % Eos % (Auto) % Baso % (Auto) % Neut # (Auto) (1.40-6.50) K/uL Lymph # (Auto) (1.20-3.40) K/uL [place] # (Auto) (0.11-0.59) K/uL Eos # (Auto) (0.00-0.50) K/uL Baso # (Auto) (0.00-0.20) K/uL Immature Gran # (Auto) (0.01-0.20) K/uL Platelet Estimate (Normal) PT (9.0-12.0) Seconds INR (0.9-1.1) APTT (21-31) Seconds PTT Ratio VBG pH (7.36-7.41) VBG pCO2 (38-50) mmHg VBG pO2 mmHg VBG HCO3 mmol/L VBG O2 Saturation % VBG Base Excess mEq/L Sodium (136-145) mmol/L Potassium (3.5-5.1) mmol/L Chloride (98-107) mmol/L Carbon Dioxide (21-32) mmol/L Anion Gap (3-11) BUN (6-23) mg/dl Creatinine (0.6-1.4) mg/dl Est Cr Clr Drug Dosing eGFR BUN/Creatinine Ratio (10-20) Glucose (70-99(Fasting)) mg/dl POC Glucose 147 H (70-99) mg/dl Lactate (0.4-2.0) mmol/L Calcium (8.6-10.3) mg/dl Phosphorus 3.4 (2.5-4.9) mg/dl Magnesium (1.7-2.4) mg/dl Total Bilirubin (0.2-1.0) mg/dl AST (13-39) U/L ALT (7-52) U/L Alkaline Phosphatase (34-104) U/L Total Creatine Kinase (30-223) U/L Troponin I High Sens 25.1 H 25.5 H (0-20) pg/ml C-Reactive Protein (0-0.5) mg/dl B-Natriuretic Peptide 131 H (0-100) pg/ml Total Protein (6.0-8.3) gm/dl Albumin (3.4-5.0) gm/dl Globulin (2.5-4.0) gm/dl Albumin/Globulin Ratio (0.9-2) Procalcitonin (0-0.5) ng/ml Random Cortisol mcg/dl ACTH Urine Color Urine Appearance (Clear) Urine pH (4.5-7.5) Ur Specific Gunter (1.000-1.030) Urine Protein (Negative) Urine Glucose (UA) (Negative) Urine Ketones (Negative) Urine Blood (Negative) Urine Nitrite (Negative) Urine Bilirubin (Negative) Urine Urobilinogen (Negative) Ur Leukocyte Esterase (Negative) Urine WBC (Auto) (0-5) /hpf Urine RBC (Auto) (0-2) /hpf U Hyaline Cast (Auto) (0-2) /lpf U Epithel Cells (Auto) (0-2) /hpf Urine Bacteria (Auto) (None Seen) Stl C. cayetanensis PCR (NotDetected) Stool Rotavirus A PCR (NotDetected) Stl Adenov F 40/41 PCR (NotDetected) Stool Astrovirus (PCR) (NotDetected) Stool Campylobacter PCR (NotDetected) Stool Cryptosporidium PCR (NotDetected) Stl E.coli Shiga Tox PCR (NotDetected) Stl Enterotoxigenic E PCR (NotDetected) Stool EPEC (PCR) (NotDetected) Stool EAEC (PCR) (NotDetected) Stl E. histolytica PCR (NotDetected) Stool Giardia Lamblia PCR (NotDetected) Stool Salmonella PCR (NotDetected) Stool Sapovirus (PCR) (NotDetected) Stl P. shigelloides PCR (NotDetected) Stl Shigella/EIEC PCR (NotDetected) St Y.enterocolitica PCR (NotDetected) Stool Vibrio (PCR) (NotDetected) Stl Vibrio cholerae PCR (NotDetected) Stl Norovirus GI/GII PCR (NotDetected) Adenovirus (PCR) (NotDetected) B. pertussis DNA (PCR) (NotDetected) B.parapertussis DNA PCR (NotDetected) C. pneumoniae DNA (PCR) (NotDetected) Coronavirus OC43 (PCR) (NotDetected) Coronavirus HKU1 (PCR) (NotDetected) Coronavirus 229E (PCR) (NotDetected) SARS-CoV-2 (PCR) (Negative) Coronavirus NL63 (PCR) (NotDetected) Human Metapneumovir PCR (NotDetected) Influenza Type A (PCR) (Neg) Influenza Type B (PCR) (Neg) M. pneumoniae (PCR) (NotDetected) Parainfluenza 1 (PCR) (NotDetected) Parainfluenza 2 (PCR) (NotDetected) Parainfluenza 3 (PCR) (NotDetected) Parainfluenza 4 (PCR) (NotDetected) RSV (RT-PCR) (Neg) RSV (PCR) (NotDetected) Entero/Rhino (PCR) (NotDetected) 03/31/24 03/31/24 03/31/24 Range/Units 17:25 16:48 16:47 WBC 7.42 (4.8-10.8) K/ul RBC 3.62 L (4.70-6.10) M/uL Hgb 11.7 L (14.0-18.0) g/dl Hct 34.4 L (42.0-52.0) % MCV 95.0 (80.0-100.0) fL MCH 32.3 (25.0-34.0) pg MCHC 34.0 (32.0-36.0) g/dL RDW Std Deviation 55.0 H (36.4-46.3) fL RDW Coeff of Jono 15.7 H (11.5-14.5) % Plt Count 175 (130-400) K/uL MPV 10.2 (9.4-12.4) fL Immature Gran % (Auto) 0.8 % Neut % (Auto) 81.4 % Lymph % (Auto) 14.7 % [place] % (Auto) 1.5 % Eos % (Auto) 1.1 % Baso % (Auto) 0.5 % Neut # (Auto) 6.04 (1.40-6.50) K/uL Lymph # (Auto) 1.09 L (1.20-3.40) K/uL [place] # (Auto) 0.11 (0.11-0.59) K/uL Eos # (Auto) 0.08 (0.00-0.50) K/uL Baso # (Auto) 0.04 (0.00-0.20) K/uL Immature Gran # (Auto) 0.06 (0.01-0.20) K/uL Platelet Estimate (Normal) PT 10.3 (9.0-12.0) Seconds INR 0.9 (0.9-1.1) APTT 26 (21-31) Seconds PTT Ratio 1.0 VBG pH 7.40 (7.36-7.41) VBG pCO2 40 (38-50) mmHg VBG pO2 26 mmHg VBG HCO3 25 mmol/L VBG O2 Saturation < 60.0 % VBG Base Excess 0 mEq/L Sodium 134 L (136-145) mmol/L Potassium 4.6 (3.5-5.1) mmol/L Chloride 102 (98-107) mmol/L Carbon Dioxide 26 (21-32) mmol/L Anion Gap 6 (3-11) BUN 51 H (6-23) mg/dl Creatinine 1.75 H (0.6-1.4) mg/dl Est Cr Clr Drug Dosing Not Reportable eGFR 39.61 BUN/Creatinine Ratio 29.1 H (10-20) Glucose 175 H (70-99(Fasting)) mg/dl POC Glucose (70-99) mg/dl Lactate 1.7 (0.4-2.0) mmol/L Calcium 10.1 (8.6-10.3) mg/dl Phosphorus (2.5-4.9) mg/dl Magnesium 2.3 (1.7-2.4) mg/dl Total Bilirubin 0.8 (0.2-1.0) mg/dl AST 16 (13-39) U/L ALT 15 (7-52) U/L Alkaline Phosphatase 68 (34-104) U/L Total Creatine Kinase 41 (30-223) U/L Troponin I High Sens 27.3 H (0-20) pg/ml C-Reactive Protein (0-0.5) mg/dl B-Natriuretic Peptide (0-100) pg/ml Total Protein 6.8 (6.0-8.3) gm/dl Albumin 3.8 (3.4-5.0) gm/dl Globulin 3.0 (2.5-4.0) gm/dl Albumin/Globulin Ratio 1.3 (0.9-2) Procalcitonin 0.12 (0-0.5) ng/ml Random Cortisol mcg/dl ACTH Urine Color Urine Appearance (Clear) Urine pH (4.5-7.5) Ur Specific Gunter (1.000-1.030) Urine Protein (Negative) Urine Glucose (UA) (Negative) Urine Ketones (Negative) Urine Blood (Negative) Urine Nitrite (Negative) Urine Bilirubin (Negative) Urine Urobilinogen (Negative) Ur Leukocyte Esterase (Negative) Urine WBC (Auto) (0-5) /hpf Urine RBC (Auto) (0-2) /hpf U Hyaline Cast (Auto) (0-2) /lpf U Epithel Cells (Auto) (0-2) /hpf Urine Bacteria (Auto) (None Seen) Stl C. cayetanensis PCR (NotDetected) Stool Rotavirus A PCR (NotDetected) Stl Adenov F 40/41 PCR (NotDetected) Stool Astrovirus (PCR) (NotDetected) Stool Campylobacter PCR (NotDetected) Stool Cryptosporidium PCR (NotDetected) Stl E.coli Shiga Tox PCR (NotDetected) Stl Enterotoxigenic E PCR (NotDetected) Stool EPEC (PCR) (NotDetected) Stool EAEC (PCR) (NotDetected) Stl E. histolytica PCR (NotDetected) Stool Giardia Lamblia PCR (NotDetected) Stool Salmonella PCR (NotDetected) Stool Sapovirus (PCR) (NotDetected) Stl P. shigelloides PCR (NotDetected) Stl Shigella/EIEC PCR (NotDetected) St Y.enterocolitica PCR (NotDetected) Stool Vibrio (PCR) (NotDetected) Stl Vibrio cholerae PCR (NotDetected) Stl Norovirus GI/GII PCR (NotDetected) Adenovirus (PCR) Not Detected (NotDetected) B. pertussis DNA (PCR) Not Detected (NotDetected) B.parapertussis DNA PCR Not Detected (NotDetected) C. pneumoniae DNA (PCR) Not Detected (NotDetected) Coronavirus OC43 (PCR) Not Detected (NotDetected) Coronavirus HKU1 (PCR) Not Detected (NotDetected) Coronavirus 229E (PCR) Not Detected (NotDetected) SARS-CoV-2 (PCR) Not Detected NEGATIVE (Negative) Coronavirus NL63 (PCR) Not Detected (NotDetected) Human Metapneumovir PCR Not Detected (NotDetected) Influenza Type A (PCR) Not Detected Negative (Neg) Influenza Type B (PCR) Not Detected Negative (Neg) M. pneumoniae (PCR) Not Detected (NotDetected) Parainfluenza 1 (PCR) Not Detected (NotDetected) Parainfluenza 2 (PCR) Not Detected (NotDetected) Parainfluenza 3 (PCR) Not Detected (NotDetected) Parainfluenza 4 (PCR) Not Detected (NotDetected) RSV (RT-PCR) Negative (Neg) RSV (PCR) Not Detected (NotDetected) Entero/Rhino (PCR) Not Detected (NotDetected) Diagnostic Findings Abdomen/Pelvis CT 03/31/24 17:07 EXAMINATION: CT of the abdomen and pelvis performed without contrast TECHNIQUE: Helical CT images from the lung bases through the symphysis pubis were obtained without contrast. Coronal and sagittal reformatted images were generated at a workstation for further assessment. Dose reduction techniques were achieved by using automatic exposure control and/or adjustment of mA and/or kV according to patient size and/or use of iterative reconstruction technique. COMPARISON: None HISTORY: Trauma FINDINGS: Lower chest: There is a small left basilar pleural effusion seen. Mild scattered areas of patchy groundglass and small nodular opacity throughout the lung bases in the right middle lobe. Liver: No suspicious liver lesions. Gallbladder: Punctate gallstone seen at the neck. No evidence of acute cholecystitis. Spleen: Normal size. Pancreas: No suspicious pancreatic lesions. The pancreatic duct is not dilated. Adrenal glands: No adrenal nodules. Kidneys: No hydronephrosis or obstructing renal stones. There is an 8 mm lesion at the inferior pole of the left kidney which is high in attenuation, most consistent with a hemorrhagic/proteinaceous cyst. Otherwise no additional visualized masses seen on this noncontrast CT. Bladder / Pelvic organs: Unremarkable. Bowel: No bowel obstruction. No abnormal bowel wall thickening. The appendix is unremarkable. Left colonic diverticulosis without evidence for diverticulitis. There is a large colonic stool burden. Lymph nodes: No retroperitoneal, mesenteric, or pelvic lymphadenopathy. Peritoneum / Retroperitoneum: No free fluid or air within the abdomen. Vessels: No infrarenal aortic aneurysm. Heavy aortoiliac calcification. Bones and soft tissues: No suspicious lesion in the bones. L5-S1 fixation changes. Small fat-containing inguinal hernias. IMPRESSION: No evidence for an acute traumatic abnormality of the abdomen or pelvis. Patchy groundglass and nodular densities in the right middle lobe and lower lungs, appear infectious. There is a small left pleural effusion. Electronically signed by Carlo Pierson 03-31-2024 7:23 PM Chest X-Ray 03/31/24 17:07 INDICATION: Chest pain. TECHNIQUE: Frontal radiograph of the chest. COMPARISON: Radiograph from 07/28/2024. FINDINGS: Cardiomegaly. Mild pulmonary vascular congestion. Chronic appearing left upper/lower lobe opacities and left pleural effusion. Findings unchanged from prior. No pneumothorax. No acute fracture. IMPRESSION: Mild pulmonary vascular congestion. Chronic appearing left upper/lower lobe opacities and left pleural effusion. Findings unchanged from prior. Electronically signed by Dung Mendoza 03-31-2024 5:[address] 03/31/24 17:16 CT cervical spine without IV contrast History: Trauma Comparison: None Technique: Using multidetector thin collimation helical acquisition technique, axial, coronal and sagittal CT images through the cervical spine were obtained without intravenous contrast. Dose reduction techniques were achieved by using automatic exposure control and/or adjustment of mA and/or kV according to patient size and/or use of iterative reconstruction technique. Findings: The cervical vertebrae are normally aligned. Straightened cervical lordosis. No acute fracture or subluxation. No prevertebral edema. Mild multilevel discogenic and facet degenerative changes. There is moderate atlantodental degenerative change. No abnormality of the paraspinous soft tissues. The lungs appear emphysematous. A left pleural effusion is partially seen. Impression: No acute fracture or traumatic subluxation. A left pleural effusion is partially seen at the left lung apex. Electronically signed by Carlo Pierson 03-31-2024 7:[address] 03/31/24 17:16 CT head without contrast History: Trauma Comparison: None Technique: Using multidetector thin collimation helical acquisition technique, axial, coronal and sagittal CT images from the skull base to the vertex were obtained without intravenous contrast. Dose reduction techniques were achieved by using automatic exposure control and/or adjustment of mA and/or kV according to patient size and/or use of iterative reconstruction technique. Findings: No intracranial hemorrhage, mass-effect, or midline shift. The ventricles are proportionate to the cerebral sulci. The grey to white matter differentiation of the cerebral hemispheres is preserved. The basal cisterns are patent. There is moderate cerebral atrophy. Moderate, patchy low-attenuation changes in the white matter, most suggestive of sequelae of chronic small vessel ischemic disease. The visualized paranasal sinuses are clear. Mastoid air cells are clear. Impression: No acute intracranial pathology. Electronically signed by Carlo Pierson 03-31-2024 7:23 PM Chest X-Ray 04/02/24 13:48 XR chest 2V PA/lateral CLINICAL HISTORY: hypoxia COMPARISON STUDY: 03/31/2024 x-ray and CT of 02/29/2024. FINDINGS: Heart size and pulmonary vasculature are normal. There is a stable small left pleural effusion and adjacent atelectasis or scarring at the left mid and lower lung. No new consolidation or pleural effusion seen. No pneumothorax. IMPRESSION: Stable exam. ACT 112: Negative or not required by law. Electronically signed by: Keith Burger M.D. 04/02/2024 2:[address] 04/03/24 06:50 EXAM: CT head/brain wo con CLINICAL HISTORY: Fall. TECHNIQUE: Axial non-contrast CT scan of the brain was performed from the skull base to the high parietal region with coronal and sagittal reformats. One of the following dose reduction techniques were utilized for this exam: Automated exposure control, adjustment of the mA and/or kV according to patient size, use of iterative reconstruction. CTDI: 37.7mGy, DLP: 547.75mGy*cm. COMPARISON: None. FINDINGS: Accentuated bilateral cerebral periventricular white matter hypodensities denoting hypoperfusion with bilateral fronto-parietal periventricular and subcortical hypodense foci are noted. The grey white mater differentiation is preserved. Normal CT appearance of the posterior fossa structures. No intracerebral or extra axial hematoma. Dilated ventricular system, cortical sulci and extra-axial CSF spaces. No midline shifts or deformity. No definite calvarial fractures. The osseous structures in the skull base are unremarkable. The scanned paranasal sinuses are unremarkable IMPRESSION: 1. No skull fractures. 2. No intra or extra-axial hemorrhage. 3. No parenchymal territorial hypodense areas suggestive of acute ischemic insult. 4. Microvascular ischemic changes with age matches mild brain involutional changes. Electronically signed by Keiko Feng 04-03-2024 08:[address] 04/03/24 08:56 CT OF THE CHEST WITHOUT IV CONTRAST CLINICAL HISTORY: Hypoxia. History of lung cancer. COMPARISON STUDY: Chest CT February 29, 2024. CT of the abdomen and pelvis March 31, 2024. Chest radiograph April 02, 2024. CT DOSE: 525.96 mGy.cm TECHNIQUE: Axial images of the chest were obtained without IV contrast. Images were reviewed in the axial, sagittal, and coronal planes. IV contrast was not administered for this examination. Automated exposure control was utilized for the study. A dose lowering technique was utilized adhering to the principles of ALARA. FINDINGS: The heart is mildly enlarged. There is moderate coronary artery and aortic valvular calcification. There is no pericardial effusion. Calcified mediastinal and right hilar lymph nodes are noted. Prominent mediastinal lymph nodes are similar to CT of February 29, 2024. A prevascular lymph node on image 85 measures 1.2 x 0.8 cm. A small left pleural effusion has mildly increased in size since CT of February 29, 2024. There is no right pleural effusion. There is no pneumothorax. Band-like left upper lobe opacity and subpleural left lower lobe opacity are similar to CT of February 29, 2024. Central airways are patent. There is no consolidation to suggest pneumonia. Interlobular septal thickening is present. There are groundglass opacities within the lungs. There is underlying emphysema. Mild alveolar opacities within the right middle lobe are present. These are similar to CT of May 07, 2022. Multiple subacute to chronic left-sided rib fractures are again noted. There are no acute fractures within the thorax. IMPRESSION: 1. Minimal right middle lobe airspace opacity suggestive of an infectious process. 2. Findings suggestive of mild interstitial pulmonary edema. 3. Mild increase in size of a small left pleural effusion. This remains indeterminate and may be treatment-related however imaging follow-up to ensure resolution/stability is recommended. 4. Band-like left upper lobe opacity and subpleural left lower lobe opacity. These are unchanged since prior chest CT and favor posttreatment change. However, continued imaging follow-up is recommended to exclude the possibility of recurrent tumor. 5. No change in mildly enlarged mediastinal lymph nodes which are likely benign but can be assessed on follow-up exams. ACT 112: Negative or not required by law. Electronically signed by: Aubrey Carballo M.D. 04/03/2024 10:10 AM PG Care Time/CCT Total # of Minutes Spent Total Time Spent with Patient: Total time spent is greater than 50% in coordination of care (as documented) at patient's floor/unit and/or counseling patient: I spent 60 minutes overall addressing this case: 15 min in medical data review/discussion with referring provider(s) and/or preparation for the visit 15 min in direct interaction with the patient/exam 00 min in Advance Care Planning/Goals of Care discussions as detailed above in note (must be >16min) 15 min in subsequent review and synthesis of assessment and plan 15 min communicating with other providers regarding the patient's case: [place] [address] IN/OBS CONSULT LVL 4,60M Patient Type New History Comprehensive Exam Comprehensive Medical Decision Making High Complexity Diagnoses 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
--- NOTE | 2024-04-03 22:59 | Hospitalist Progress Note ---
Date of Service April 03, 2024 Assessment & Plan (1) Diffuse pain: Plan: 78yo male with history of metastatic adenocarcinoma of the lung currently on chemotherapy with Carboplatin, Paclitaxel and Pembrolizumab presenting with diffuse body pain, persistent despite PO Oxycodone taken at home. Patient has experienced similar pain in the past - thought likely due to his chemotherapy treatment. Typically occurs every other month. Some improvement with IV morphine given in the ER. -Admit to Medical -Morphine 2-4mg IV q 3 hours as needed for pain management -Zofran PRN nausea -Narcan available for accidental overdose -Docusate/Senna and Miralax available for bowel management pain appears better controlled. will continue above meds. After sustaining a fall, patient had a ct scan of his head: negative. Due to hypoxia, concern that this is pneumonitis from immunotherapy. added corticosteroids. heme ordered cortisol/ acth prior to giving steroids. cortisol is negative. Patient transferred to [facility] d/w [facility] oncology -Continue Gabapentin -Tylenol PRN Chronic kidney disease stage 3b creatinine appears slightly higher. will monitor. recheck in AM (2) Metastatic lung cancer (metastasis from lung to other site): Plan: Patient follows with Oncology - on active chemotherapy. Question of possible pneumonitis given his ongoing SOB and cough. His Cycle 3 of treatment was recently held and he was treated with steroids. -Oncology consultation appreciated procal is negative. no fevers, will hold empiric zosyn moving forward repeat chest x ray did not show any signs of consiloidation. (3) DM type 2 (diabetes mellitus, type 2): Plan: Chronic. Last [id number]=7.9 on 01/21/24. Patient with variable blood sugars - response to the steroids he receives with chemotherapy. He has been seen by [facility] for this issue on 03/23/24. -Lantus 12u BID with ISS -Goal blood sugar 110 - 140 Plan Chronic Medical Issues: COPD -Continue Breo-Ellipta -Continue Albuterol PRN -Continue Tessalon PRN JAY -Continue CPAP Hyperlipidemia -Continue Crestor 20mg po daily GERD -Continue Protonix 40mg po BID Depression -Continue Citalopram 60mg po qAM F/E/N - NSS at 80mL/hr x 1L Ppx - Lovenox 40u Code - Full per discussion with patient Dispo - Admit to medical Admission and Anticipated Discharge Date Admission Date: March 31, 2024 Subjective Patient sustained a fall today. No head injury. at bedside states patient needs to urinate quickly and suffers from chronic urgency. Physical Exam Physical Exam: General: patient reports no new symptoms. eye: right eye had red sclera but no pain. able to see Skin: warm, dry, intact, no rashes or lesions HEENT: NC/AT, PERRL, EOMI Heart: +S1/S2, regular, no m/r/g Lungs: equal air entry bilaterally, no rales/rhonchi/wheezes Abd: +BS, soft, NT/ND, no masses/organomegaly/ascites Ext: warm, 2+ pulses in UE/LE bilaterally, no clubbing/cyanosis or edema Neuro: nonfocal, patient AA&O x 4 Results & Data Results & Data Vital Signs (Past 12 Hours) Vital Signs Temp Pulse Pulse Pulse Resp BP Pulse Ox 04/03/24 21:54 78 04/03/24 21:15 04/03/24 19:32 74 18 94 04/03/24 19:18 36.5 C 70 18 128/55 L 95 04/03/24 16:05 82 04/03/24 16:00 36.4 C L 75 18 133/62 94 04/03/24 14:26 04/03/24 11:07 111/61 Pulse Ox Pulse Ox O2 Del Method O2 Flow Rate O2 Flow Rate O2 Flow Rate 04/03/24 21:54 04/03/24 21:15 Nasal Cannula 2 04/03/24 19:32 Nasal Cannula 4 04/03/24 19:18 Nasal Cannula 2 04/03/24 16:05 04/03/24 16:00 Nasal Cannula 2.0 04/03/24 14:26 94 85 L 4 0 04/03/24 11:07 PG Care Time/CCT Total # of Minutes Spent Total Time Spent with Patient: Total time spent is greater than 50% in coordination of care (as documented) at patient's floor/unit and/or counseling patient: Coding Level of Care Code 99723 SUB INP/OBS CARE 3/50MIN Diagnoses Diffuse pain R52 Metastatic lung cancer (metastasis from lung to other site) C34.90 DM type 2 (diabetes mellitus, type 2) E11.9
[2024-04-04] MEDS: CALCIUM CARBONATE 500 MG CHEWABLE TAB PO PRN (06:22)
[2024-04-04 06:23] LABS: Hematocrit (blood only) 23.8 % (42.0-52.0); Hemoglobin 8.3 g/dl (14.0-18.0); Mean Corpuscular Hemoglobin 33.2 pg (25.0-34.0); Mean Corpuscular Hgb Conc 34.9 g/dL (32.0-36.0); Mean Corpuscular Volume 95.2 fL (80.0-100.0); Mean Platelet Volume 10.4 fL (9.4-12.4); Platelet Count 90 K/uL (130-400); RDW Coefficient of Variation 14.9 % (11.5-14.5); RDW Standard Deviation 52.3 fL (36.4-46.3); White Blood Count 0.52 K/ul (4.8-10.8)
[2024-04-04 06:27] LABS: C Reactive Protein 26.22 mg/dl (0-0.5); Creatinine Clr Calc Pharmacy 39.3 ml/min; Potassium 4.5 mmol/L (3.5-5.1)
--- NOTE | 2024-04-04 08:53 | Nephrology Progress Note ---
Date of Service April 04, 2024 Assessment & Plan (1) Acute kidney injury: Plan: * Resolved following IV hydration * Patient is nonoliguric * DC IV LR * Encourage oral hydration (2) CKD (chronic kidney disease), stage III: Plan: * CKD stage G3a/A3. Baseline Cr1.5-2.0 mg/dL. History of JAVED requiring dialysis in 2019. 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 MACR 1610 mcg/mg. Follows with Dr. De León as outpatient. (3) Hyponatremia: Plan: * Mild, asymptomatic hyponatremia * Clinically euvolemic to volume contracted * Start NaCl 1 g p.o. twice daily * Monitor BMP, check Uosm (4) Metastatic lung cancer (metastasis from lung to other site): Plan: * Oncology has ordered Neupogen for correction of neutropenia * Cortisol and a TCH level has been ordered. Patient has been started on Solu- Medrol therapy. * Palliative care has met with patient and provided Ativan for management of anxiety/nausea. Admission and Anticipated Discharge Date Admission Date: March 31, 2024 Subjective Mr. Alvarez was evaluated in his hospital room this morning. He was breathing comfortably flat in bed on O2 at 3 L/minute. He voices no medical concerns. Review of Systems Constitutional: no fever Eyes: no problem reported Ear, Nose, Mouth, Throat: no problem reported Respiratory: no cough and no dyspnea Cardiovascular: no chest pain Gastrointestinal: no abdominal pain, no nausea, no vomiting and no diarrhea/loose stools Genitourinary: no dysuria or no hematuria Physical Exam Constitutional: + frail appearing; not in distress Eyes: R subconjunctival hemorrhage ENMT: external ear and nose normal, oropharynx normal Neck: trachea midline, no thyromegaly Respiratory: normal respiratory effort, lungs clear to auscultation Cardiovascular: RRR, no murmur, no edema Gastrointestinal (Abdomen): normal bowel sounds, soft, nontender, no hepatosplenomegaly Musculoskeletal: Extremities: no cyanosis Neurologic: awake; not confused Results & Data Vital Signs (Past 12 Hours) Vital Signs Temp Pulse Pulse Pulse Resp BP Pulse Ox 04/04/24 07:19 97 H 18 95 04/04/24 07:16 36.4 C L 94 H 20 154/74 H 95 04/04/24 03:17 36.3 C L 81 18 151/60 H 98 02/07/25 23:24 36.9 C 81 18 140/57 L 93 04/03/24 21:54 78 04/03/24 21:15 O2 Del Method O2 Flow Rate 04/04/24 07:19 Nasal Cannula 3 04/04/24 07:16 Nasal Cannula 3 04/04/24 03:17 Nasal Cannula 4 04/03/24 23:24 Nasal Cannula 2 04/03/24 21:54 04/03/24 21:15 Nasal Cannula 2 Laboratory Results Laboratory Results - last 24 hr 04/03/24 04/03/24 04/03/24 09:04 11:05 11:09 WBC RBC Hgb Hct MCV MCH MCHC RDW Std Deviation RDW Coeff of Jono Plt Count MPV Sodium Potassium Chloride Carbon Dioxide Anion Gap BUN Creatinine Est Cr Clr Drug Dosing eGFR BUN/Creatinine Ratio Glucose POC Glucose 162 H Calcium C-Reactive Protein Procalcitonin Random Cortisol 22.58 ACTH Pending Stl C. cayetanensis PCR Not Detected Stool Rotavirus A PCR Not Detected Stl Adenov F 40/41 PCR Not Detected Stool Astrovirus (PCR) Not Detected Stool Campylobacter PCR Not Detected Stool Cryptosporidium PCR Not Detected Stl E.coli Shiga Tox PCR Not Detected Stl Enterotoxigenic E PCR Not Detected Stool EPEC (PCR) Not Detected Stool EAEC (PCR) Not Detected Stl E. histolytica PCR Not Detected Stool Giardia Lamblia PCR Not Detected Stool Salmonella PCR Not Detected Stool Sapovirus (PCR) Not Detected Stl P. shigelloides PCR Not Detected Stl Shigella/EIEC PCR Not Detected St Y.enterocolitica PCR Not Detected Stool Vibrio (PCR) Not Detected Stl Vibrio cholerae PCR Not Detected Stl Norovirus GI/GII PCR Not Detected 04/03/24 04/03/24 04/04/24 16:01 19:37 05:59 WBC 0.52 L* RBC 2.50 L Hgb 8.3 L Hct 23.8 L MCV 95.2 MCH 33.2 MCHC 34.9 RDW Std Deviation 52.3 H RDW Coeff of Jono 14.9 H Plt Count 90 L MPV 10.4 Sodium 130 L Potassium 4.5 Chloride 101 Carbon Dioxide 21 Anion Gap 8 BUN 44 H Creatinine 1.83 H Est Cr Clr Drug Dosing 39.3 eGFR 37.54 BUN/Creatinine Ratio 24.0 H Glucose 237 H POC Glucose 183 H 219 H Calcium 9.0 C-Reactive Protein 26.22 H Procalcitonin Pending Random Cortisol ACTH Stl C. cayetanensis PCR Stool Rotavirus A PCR Stl Adenov F 40/ PCR Stool Astrovirus (PCR) Stool Campylobacter PCR Stool Cryptosporidium PCR Stl E.coli Shiga Tox PCR Stl Enterotoxigenic E PCR Stool EPEC (PCR) Stool EAEC (PCR) Stl E. histolytica PCR Stool Giardia Lamblia PCR Stool Salmonella PCR Stool Sapovirus (PCR) Stl P. shigelloides PCR Stl Shigella/EIEC PCR St Y.enterocolitica PCR Stool Vibrio (PCR) Stl Vibrio cholerae PCR Stl Norovirus GI/GII PCR 04/04/24 07:16 WBC RBC Hgb Hct MCV MCH MCHC RDW Std Deviation RDW Coeff of Jono Plt Count MPV Sodium Potassium Chloride Carbon Dioxide Anion Gap BUN Creatinine Est Cr Clr Drug Dosing eGFR BUN/Creatinine Ratio Glucose POC Glucose 276 H Calcium C-Reactive Protein Procalcitonin Random Cortisol ACTH Stl C. cayetanensis PCR Stool Rotavirus A PCR Stl Adenov F 40/ PCR Stool Astrovirus (PCR) Stool Campylobacter PCR Stool Cryptosporidium PCR Stl E.coli Shiga Tox PCR Stl Enterotoxigenic E PCR Stool EPEC (PCR) Stool EAEC (PCR) Stl E. histolytica PCR Stool Giardia Lamblia PCR Stool Salmonella PCR Stool Sapovirus (PCR) Stl P. shigelloides PCR Stl Shigella/EIEC PCR St Y.enterocolitica PCR Stool Vibrio (PCR) Stl Vibrio cholerae PCR Stl Norovirus GI/GII PCR Laboratory Results WBC 0.52 K/ul (4.8-10.8) L* 04/04/24 05:59 RBC 2.50 M/uL (4.70-6.10) L 04/04/24 05:59 Hgb 8.3 g/dl (14.0-18.0) L 04/04/24 05:59 Hct 23.8 % (42.0-52.0) L 04/04/24 05:59 MCV 95.2 fL (80.0-100.0) 04/04/24 05:59 MCH 33.2 pg (25.0-34.0) 04/04/24 05:59 MCHC 34.9 g/dL (32.0-36.0) 04/04/24 05:59 RDW Std Deviation 52.3 fL (36.4-46.3) H 04/04/24 05:59 RDW Coeff of Jono 14.9 % (11.5-14.5) H 04/04/24 05:59 Plt Count 90 K/uL (130-400) L 04/04/24 05:59 MPV 10.4 fL (9.4-12.4) 04/04/24 05:59 Immature Gran % (Auto) 0.8 % 03/31/24 16:48 Neut % (Auto) 81.4 % 03/31/24 16:48 Lymph % (Auto) 14.7 % 03/31/24 16:48 [place] % (Auto) 1.5 % 03/31/24 16:48 Eos % (Auto) 1.1 % 03/31/24 16:48 Baso % (Auto) 0.5 % 03/31/24 16:48 Neut # (Auto) < 0.50 K/uL (1.40-6.50) L* 04/03/24 06:30 Lymph # (Auto) 1.09 K/uL (1.20-3.40) L 03/31/24 16:48 [place] # (Auto) 0.11 K/uL (0.11-0.59) 03/31/24 16:48 Eos # (Auto) 0.08 K/uL (0.00-0.50) 03/31/24 16:48 Baso # (Auto) 0.04 K/uL (0.00-0.20) 03/31/24 16:48 Immature Gran # (Auto) 0.06 K/uL (0.01-0.20) 03/31/24 16:48 Platelet Estimate Decreased (Normal) L 04/02/24 06:50 PT 10.9 Seconds (9.0-12.0) 04/03/24 06:56 INR 1.0 (0.9-1.1) 04/03/24 06:56 APTT 29 Seconds (21-31) 04/03/24 06:56 PTT Ratio 1.1 04/03/24 06:56 VBG pH 7.40 (7.36-7.41) 03/31/24 17:25 VBG pCO2 40 mmHg (38-50) 03/31/24 17:25 VBG pO2 26 mmHg 03/31/24 17:25 VBG HCO3 25 mmol/L 03/31/24 17:25 VBG O2 Saturation < 60.0 % 03/31/24 17:25 VBG Base Excess 0 mEq/L 03/31/24 17:25 Sodium 130 mmol/L (136-145) L 04/04/24 05:59 Potassium 4.5 mmol/L (3.5-5.1) 04/04/24 05:59 Chloride 101 mmol/L (98-107) 04/04/24 05:59 Carbon Dioxide 21 mmol/L (21-32) 04/04/24 05:59 Anion Gap 8 (3-11) 04/04/24 05:59 BUN 44 mg/dl (6-23) H 04/04/24 05:59 Creatinine 1.83 mg/dl (0.6-1.4) H 04/04/24 05:59 Est Cr Clr Drug Dosing 39.3 ml/min 04/04/24 05:59 eGFR 37.54 04/04/24 05:59 BUN/Creatinine Ratio 24.0 (10-20) H 04/04/24 05:59 Glucose 237 mg/dl (70-99(Fasting)) H 04/04/24 05:59 POC Glucose 276 mg/dl (70-99) H 04/04/24 07:16 Lactate 1.7 mmol/L (0.4-2.0) 03/31/24 17:25 Calcium 9.0 mg/dl (8.6-10.3) 04/04/24 05:59 Phosphorus 3.4 mg/dl (2.5-4.9) 03/31/24 22:36 Magnesium 2.3 mg/dl (1.7-2.4) 03/31/24 16:48 Total Bilirubin 0.8 mg/dl (0.2-1.0) 03/31/24 16:48 AST 16 U/L (13-39) 03/31/24 16:48 ALT 15 U/L (7-52) 03/31/24 16:48 Alkaline Phosphatase 68 U/L (34-104) 03/31/24 16:48 Total Creatine Kinase 35 U/L (30-223) 04/01/24 06:26 Troponin I High Sens 22.2 pg/ml (0-20) H 04/01/24 10:29 C-Reactive Protein 26.22 mg/dl (0-0.5) H 04/04/24 05:59 B-Natriuretic Peptide 131 pg/ml (0-100) H 03/31/24 19:00 Total Protein 6.8 gm/dl (6.0-8.3) 03/31/24 16:48 Albumin 3.8 gm/dl (3.4-5.0) 03/31/24 16:48 Globulin 3.0 gm/dl (2.5-4.0) 03/31/24 16:48 Albumin/Globulin Ratio 1.3 (0.9-2) 03/31/24 16:48 Procalcitonin 0.13 ng/ml (0-0.5) 04/02/24 06:50 Random Cortisol 22.58 mcg/dl 04/03/24 11:09 Urine Color Yellow 04/01/24 00:31 Urine Appearance Clear (Clear) 04/01/24 00:31 Urine pH 6.0 (4.5-7.5) 04/01/24 00:31 Ur Specific [place] 1.018 (1.000-1.030) 04/01/24 00:31 Urine Protein 2+ (Negative) H 04/01/24 00:31 Urine Glucose (UA) Negative (Negative) 04/01/24 00:31 Urine Ketones Negative (Negative) 04/01/24 00:31 Urine Blood Negative (Negative) 04/01/24 00: Urine Nitrite Negative (Negative) 04/01/24 00:31 Urine Bilirubin Negative (Negative) 04/01/24 00:31 Urine Urobilinogen Negative (Negative) 04/01/24 00:31 Ur Leukocyte Esterase Negative (Negative) 04/01/24 00:31 Urine WBC (Auto) 0-5 /hpf (0-5) 04/01/24 00:31 Urine RBC (Auto) 0-2 /hpf (0-2) 04/01/24 00:31 U Hyaline Cast (Auto) 0-2 /lpf (0-2) 04/01/24 00:31 U Epithel Cells (Auto) 0-2 /hpf (0-2) 04/01/24 00:31 Urine Bacteria (Auto) None Seen (None Seen) 04/01/24 00:31 Stl C. cayetanensis PCR Not Detected (NotDetected) 04/03/24 09:04 Stool Rotavirus A PCR Not Detected (NotDetected) 04/03/24 09:04 Stl Adenov F 40/41 PCR Not Detected (NotDetected) 04/03/24 09:04 Stool Astrovirus (PCR) Not Detected (NotDetected) 04/03/24 09:04 Stool Campylobacter PCR Not Detected (NotDetected) 04/03/24 09:04 Stool Cryptosporidium PCR Not Detected (NotDetected) 04/03/24 09:04 Stl E.coli Shiga Tox PCR Not Detected (NotDetected) 04/03/24 09:04 Stl Enterotoxigenic E PCR Not Detected (NotDetected) 04/03/24 09:04 Stool EPEC (PCR) Not Detected (NotDetected) 04/03/24 09:04 Stool EAEC (PCR) Not Detected (NotDetected) 04/03/24 09:04 Stl E. histolytica PCR Not Detected (NotDetected) 04/03/24 09:04 Stool Giardia Lamblia PCR Not Detected (NotDetected) 04/03/24 09:04 Stool Salmonella PCR Not Detected (NotDetected) 04/03/24 09:04 Stool Sapovirus (PCR) Not Detected (NotDetected) 04/03/24 09:04 Stl P. shigelloides PCR Not Detected (NotDetected) 04/03/24 09:04 Stl Shigella/EIEC PCR Not Detected (NotDetected) 04/03/24 09:04 St Y.enterocolitica PCR Not Detected (NotDetected) 04/03/24 09:04 Stool Vibrio (PCR) Not Detected (NotDetected) 04/03/24 09:04 Stl Vibrio cholerae PCR Not Detected (NotDetected) 04/03/24 09:04 Stl Norovirus GI/GII PCR Not Detected (NotDetected) 04/03/24 09:04 Adenovirus (PCR) Not Detected (NotDetected) 03/31/24 17:25 B. pertussis DNA (PCR) Not Detected (NotDetected) 03/31/24 17:25 B.parapertussis DNA PCR Not Detected (NotDetected) 03/31/24 17:25 C. pneumoniae DNA (PCR) Not Detected (NotDetected) 03/31/24 17:25 Coronavirus OC43 (PCR) Not Detected (NotDetected) 03/31/24 17:25 Coronavirus HKU1 (PCR) Not Detected (NotDetected) 03/31/24 17:25 Coronavirus 229E (PCR) Not Detected (NotDetected) 03/31/24 17:25 SARS-CoV-2 (PCR) Not Detected (NotDetected) 03/31/24 17:25 Coronavirus NL63 (PCR) Not Detected (NotDetected) 03/31/24 17:25 Human Metapneumovir PCR Not Detected (NotDetected) 03/31/24 17:25 Influenza Type A (PCR) Not Detected (NotDetected) 03/31/24 17:25 Influenza Type B (PCR) Not Detected (NotDetected) 03/31/24 17:25 M. pneumoniae (PCR) Not Detected (NotDetected) 03/31/24 17:25 Parainfluenza 1 (PCR) Not Detected (NotDetected) 03/31/24 17:25 Parainfluenza 2 (PCR) Not Detected (NotDetected) 03/31/24 17:25 Parainfluenza 3 (PCR) Not Detected (NotDetected) 03/31/24 17:25 Parainfluenza 4 (PCR) Not Detected (NotDetected) 03/31/24 17:25 RSV (RT-PCR) Negative (Neg) 03/31/24 16:47 RSV (PCR) Not Detected (NotDetected) 03/31/24 17:25 Entero/Rhino (PCR) Not Detected (NotDetected) 03/31/24 17:25 Impressions Abdomen/Pelvis CT 03/31/24 17:07 EXAMINATION: CT of the abdomen and pelvis performed without contrast TECHNIQUE: Helical CT images from the lung bases through the symphysis pubis were obtained without contrast. Coronal and sagittal reformatted images were generated at a workstation for further assessment. Dose reduction techniques were achieved by using automatic exposure control and/or adjustment of mA and/or kV according to patient size and/or use of iterative reconstruction technique. COMPARISON: None HISTORY: Trauma FINDINGS: Lower chest: There is a small left basilar pleural effusion seen. Mild scattered areas of patchy groundglass and small nodular opacity throughout the lung bases in the right middle lobe. Liver: No suspicious liver lesions. Gallbladder: Punctate gallstone seen at the neck. No evidence of acute cholecystitis. Spleen: Normal size. Pancreas: No suspicious pancreatic lesions. The pancreatic duct is not dilated. Adrenal glands: No adrenal nodules. Kidneys: No hydronephrosis or obstructing renal stones. There is an 8 mm lesion at the inferior pole of the left kidney which is high in attenuation, most consistent with a hemorrhagic/proteinaceous cyst. Otherwise no additional visualized masses seen on this noncontrast CT. Bladder / Pelvic organs: Unremarkable. Bowel: No bowel obstruction. No abnormal bowel wall thickening. The appendix is unremarkable. Left colonic diverticulosis without evidence for diverticulitis. There is a large colonic stool burden. Lymph nodes: No retroperitoneal, mesenteric, or pelvic lymphadenopathy. Peritoneum / Retroperitoneum: No free fluid or air within the abdomen. Vessels: No infrarenal aortic aneurysm. Heavy aortoiliac calcification. Bones and soft tissues: No suspicious lesion in the bones. L5-S1 fixation changes. Small fat-containing inguinal hernias. IMPRESSION: No evidence for an acute traumatic abnormality of the abdomen or pelvis. Patchy groundglass and nodular densities in the right middle lobe and lower lungs, appear infectious. There is a small left pleural effusion. Electronically signed by Carlo Pierson 03-31-2024 7:[address] 03/31/24 17:16 CT cervical spine without IV contrast History: Trauma Comparison: None Technique: Using multidetector thin collimation helical acquisition technique, axial, coronal and sagittal CT images through the cervical spine were obtained without intravenous contrast. Dose reduction techniques were achieved by using automatic exposure control and/or adjustment of mA and/or kV according to patient size and/or use of iterative reconstruction technique. Findings: The cervical vertebrae are normally aligned. Straightened cervical lordosis. No acute fracture or subluxation. No prevertebral edema. Mild multilevel discogenic and facet degenerative changes. There is moderate atlantodental degenerative change. No abnormality of the paraspinous soft tissues. The lungs appear emphysematous. A left pleural effusion is partially seen. Impression: No acute fracture or traumatic subluxation. A left pleural effusion is partially seen at the left lung apex. Electronically signed by Carlo Pierson 03-31-2024 7:23 PM Chest X-Ray 04/02/24 13:48 XR chest 2V PA/lateral CLINICAL HISTORY: hypoxia COMPARISON STUDY: 03/31/2024 x-ray and CT of 02/29/2024. FINDINGS: Heart size and pulmonary vasculature are normal. There is a stable small left pleural effusion and adjacent atelectasis or scarring at the left mid and lower lung. No new consolidation or pleural effusion seen. No pneumothorax. IMPRESSION: Stable exam. ACT 112: Negative or not required by law. Electronically signed by: Keith Burger M.D. 04/02/2024 2:[address] 04/03/24 06:50 EXAM: CT head/brain wo con CLINICAL HISTORY: Fall. TECHNIQUE: Axial non-contrast CT scan of the brain was performed from the skull base to the high parietal region with coronal and sagittal reformats. One of the following dose reduction techniques were utilized for this exam: Automated exposure control, adjustment of the mA and/or kV according to patient size, use of iterative reconstruction. CTDI: 37.7mGy, DLP: 547.75mGy*cm. COMPARISON: None. FINDINGS: Accentuated bilateral cerebral periventricular white matter hypodensities denoting hypoperfusion with bilateral fronto-parietal periventricular and subcortical hypodense foci are noted. The grey white mater differentiation is preserved. Normal CT appearance of the posterior fossa structures. No intracerebral or extra axial hematoma. Dilated ventricular system, cortical sulci and extra-axial CSF spaces. No midline shifts or deformity. No definite calvarial fractures. The osseous structures in the skull base are unremarkable. The scanned paranasal sinuses are unremarkable IMPRESSION: 1. No skull fractures. 2. No intra or extra-axial hemorrhage. 3. No parenchymal territorial hypodense areas suggestive of acute ischemic insult. 4. Microvascular ischemic changes with age matches mild brain involutional changes. Electronically signed by Keiko Feng 04-03-2024 08:[address] 04/03/24 08:56 CT OF THE CHEST WITHOUT IV CONTRAST CLINICAL HISTORY: Hypoxia. History of lung cancer. COMPARISON STUDY: Chest CT February 29, 2024. CT of the abdomen and pelvis March 31, 2024. Chest radiograph April 02, 2024. CT DOSE: 525.96 mGy.cm TECHNIQUE: Axial images of the chest were obtained without IV contrast. Images were reviewed in the axial, sagittal, and coronal planes. IV contrast was not administered for this examination. Automated exposure control was utilized for the study. A dose lowering technique was utilized adhering to the principles of ALARA. FINDINGS: The heart is mildly enlarged. There is moderate coronary artery and aortic valvular calcification. There is no pericardial effusion. Calcified mediastinal and right hilar lymph nodes are noted. Prominent mediastinal lymph nodes are similar to CT of February 29, 2024. A prevascular lymph node on image 85 measures 1.2 x 0.8 cm. A small left pleural effusion has mildly increased in size since CT of February 29, 2024. There is no right pleural effusion. There is no pneumothorax. Band-like left upper lobe opacity and subpleural left lower lobe opacity are similar to CT of February 29, 2024. Central airways are patent. There is no consolidation to suggest pneumonia. Interlobular septal thickening is present. There are groundglass opacities within the lungs. There is underlying emphysema. Mild alveolar opacities within the right middle lobe are present. These are similar to CT of May 07, 2022. Multiple subacute to chronic left-sided rib fractures are again noted. There are no acute fractures within the thorax. IMPRESSION: 1. Minimal right middle lobe airspace opacity suggestive of an infectious process. 2. Findings suggestive of mild interstitial pulmonary edema. 3. Mild increase in size of a small left pleural effusion. This remains indeterminate and may be treatment-related however imaging follow-up to ensure resolution/stability is recommended. 4. Band-like left upper lobe opacity and subpleural left lower lobe opacity. These are unchanged since prior chest CT and favor posttreatment change. However, continued imaging follow-up is recommended to exclude the possibility of recurrent tumor. 5. No change in mildly enlarged mediastinal lymph nodes which are likely benign but can be assessed on follow-up exams. ACT 112: Negative or not required by law. Electronically signed by: Aubrey Carballo M.D. 04/03/2024 10:10 AM PG Care Time/CCT Total # of Minutes Spent Total Time Spent with Patient: Total time spent is greater than 50% in coordination of care (as documented) at patient's floor/unit and/or counseling patient: Coding Level of Care Code 49912 SUB INP/OBS CARE MIN Diagnoses Acute kidney injury N17.9 CKD (chronic kidney disease), stage III N18.3 Hyponatremia E87.1 Metastatic lung cancer (metastasis from lung to other site) C34.90
[2024-04-04] MEDS: SODIUM CHLORIDE 1 GM TABLET PO SCH (12:19)
[2024-04-04] MEDS ORDERED: SODIUM CHLOR 7% 4 ML NEB NEB PRN (15:59)
--- NOTE | 2024-04-04 23:37 | Hospitalist Progress Note ---
Date of Service April 04, 2024 Assessment & Plan (1) Diffuse pain: Plan: 78yo male with history of metastatic adenocarcinoma of the lung currently on chemotherapy with Carboplatin, Paclitaxel and Pembrolizumab presenting with diffuse body pain, persistent despite PO Oxycodone taken at home. Patient has experienced similar pain in the past - thought likely due to his chemotherapy treatment. Typically occurs every other month. Some improvement with IV morphine given in the ER. -Admit to Medical -Morphine 2-4mg IV q 3 hours as needed for pain management -Zofran PRN nausea -Narcan available for accidental overdose -Docusate/Senna and Miralax available for bowel management pain appears better controlled. will continue above meds. After sustaining a fall, patient had a ct scan of his head: negative. Due to hypoxia, concern that this is pneumonitis from immunotherapy. added corticosteroids. heme ordered cortisol/ acth prior to giving steroids. cortisol is negative. Patient transferred to tele No new symptoms. awaiting Placement d/w heme oncology -Continue Gabapentin -Tylenol PRN Chronic kidney disease stage 3b creatinine appears slightly higher. will monitor. recheck in AM (2) Metastatic lung cancer (metastasis from lung to other site): Plan: Patient follows with Oncology - on active chemotherapy. Question of possible pneumonitis given his ongoing SOB and cough. His Cycle 3 of treatment was recently held and he was treated with steroids. -Oncology consultation appreciated procal is negative. no fevers, will hold empiric zosyn moving forward repeat chest x ray did not show any signs of consiloidation. (3) DM type 2 (diabetes mellitus, type 2): Plan: Chronic. Last [id number]=4.9 on 01/21/24. Patient with variable blood sugars - response to the steroids he receives with chemotherapy. He has been seen by [facility] for this issue on 03/23/24. -Lantus 12u BID with ISS -Goal blood sugar 110 - 140 Plan Chronic Medical Issues: COPD -Continue Breo-Ellipta -Continue Albuterol PRN -Continue Tessalon PRN JAY -Continue CPAP Hyperlipidemia -Continue Crestor 20mg po daily GERD -Continue Protonix 40mg po BID Depression -Continue Citalopram 60mg po qAM F/E/N - NSS at 80mL/hr x 1L Ppx - Lovenox 40u Code - Full per discussion with patient Dispo - Admit to medical Admission and Anticipated Discharge Date Admission Date: March 31, 2024 Subjective Patient reports no loss of vision in his right eye, no pain. Physical Exam Physical Exam: General: patient reports no new symptoms. eye: right eye had red sclera but no pain. able to see Skin: warm, dry, intact, no rashes or lesions HEENT: NC/AT, PERRL, EOMI Heart: +S1/S2, regular, no m/r/g Lungs: equal air entry bilaterally, no rales/rhonchi/wheezes Abd: +BS, soft, NT/ND, no masses/organomegaly/ascites Ext: warm, 2+ pulses in UE/LE bilaterally, no clubbing/cyanosis or edema Neuro: nonfocal, patient AA&O x 4 Results & Data Results & Data Vital Signs (Past 12 Hours) Vital Signs Temp Pulse Pulse Pulse Resp BP BP 04/04/24 22:05 04/04/24 22:02 36.4 C L 77 18 119/69 04/04/24 21:45 78 04/04/24 19:21 36.4 C L 93 H 18 145/54 H 04/04/24 18:10 91 H 04/04/24 17:51 36.7 C 90 18 118/62 04/04/24 15:51 37.0 C 87 19 117/54 L 04/04/24 14:00 89 Pulse Ox O2 Del Method O2 Flow Rate 04/04/24 22:05 Room Air 04/04/24 22:02 98 Nasal Cannula 3 04/04/24 21:45 04/04/24 19:21 93 Nasal Cannula 3 04/04/24 18:10 04/04/24 17:51 92 Nasal Cannula 2 04/04/24 15:51 91 Nasal Cannula 3 04/04/24 14:00 PG Care Time/CCT Total # of Minutes Spent Total Time Spent with Patient: Total time spent is greater than 50% in coordination of care (as documented) at patient's floor/unit and/or counseling patient: Coding Level of Care Code 07515 SUB INP/OBS CARE 2/35MIN Diagnoses Diffuse pain R52 Metastatic lung cancer (metastasis from lung to other site) C34.90 DM type 2 (diabetes mellitus, type 2) E11.9
[2024-04-05 07:47] LABS: Hematocrit (blood only) 22.2 % (42.0-52.0); Hemoglobin 7.7 g/dl (14.0-18.0); Mean Corpuscular Hemoglobin 32.8 pg (25.0-34.0); Mean Corpuscular Hgb Conc 34.7 g/dL (32.0-36.0); Mean Corpuscular Volume 94.5 fL (80.0-100.0); Mean Platelet Volume 11.1 fL (9.4-12.4); Platelet Count 84 K/uL (130-400); RDW Coefficient of Variation 15.4 % (11.5-14.5); RDW Standard Deviation 53.7 fL (36.4-46.3); Red Blood Count 2.35 M/uL (4.70-6.10); White Blood Count 0.87 K/ul (4.8-10.8)
[2024-04-05 08:09] LABS: BUN Creatinine Ratio 30.3 (10-20); Calcium 9.1 mg/dl (8.6-10.3); Creatinine Clr Calc Pharmacy 46.3 ml/min; Potassium 4.5 mmol/L (3.5-5.1)
[2024-04-05] MEDS: ACETAMINOPHEN 325 MG TAB PO PRN (08:58)
--- NOTE | 2024-04-05 09:24 | Nephrology Progress Note ---
Date of Service April 05, 2024 Assessment & Plan (1) Acute kidney injury: Plan: * Resolved following IV hydration * Patient is nonoliguric * Encourage oral hydration (2) CKD (chronic kidney disease), stage III: Plan: * CKD stage G3a/A3. Baseline Cr1.5-2.0 mg/dL. History of JAVED requiring dialysis in 2019. 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 MACR 1610 mcg/mg. Follows with Dr. De León as outpatient. (3) Hyponatremia: Plan: * Mild, asymptomatic hyponatremia * Clinically euvolemic to volume contracted * Continue NaCl 1 g p.o. twice daily * Uosm > 300 c/w ADH effect * Monitor BMP (4) Metastatic lung cancer (metastasis from lung to other site): Plan: * Oncology has ordered Neupogen for correction of neutropenia * Cortisol and a TCH level has been ordered. Patient has been started on Solu- Medrol therapy. * Palliative care has met with patient and provided Ativan for management of anxiety/nausea. Admission and Anticipated Discharge Date Admission Date: March 31, 2024 Subjective Mr. Alvarez was evaluated in his hospital room this morning. He was breathing comfortably flat in bed on O2 at 3 L/minute. He is tolerating NaCl supplement without GI upset Review of Systems Constitutional: no fever Eyes: no problem reported Ear, Nose, Mouth, Throat: no problem reported Respiratory: no cough and no dyspnea Cardiovascular: no chest pain Gastrointestinal: no abdominal pain, no nausea, no vomiting and no diarrhea/loose stools Genitourinary: no dysuria or no hematuria Physical Exam Constitutional: + frail appearing; not in distress ENMT: external ear and nose normal, oropharynx normal Neck: trachea midline, no thyromegaly Respiratory: normal respiratory effort, lungs clear to auscultation Cardiovascular: RRR, no murmur, no edema Gastrointestinal (Abdomen): normal bowel sounds, soft, nontender, no hepatosplenomegaly Musculoskeletal: Extremities: no cyanosis Neurologic: awake; not confused Results & Data Vital Signs (Past 12 Hours) Vital Signs Temp Pulse Pulse Resp BP BP Pulse Ox 04/05/24 09:16 80 04/05/24 07:51 36.3 C L 94 H 16 121/72 98 04/05/24 07:07 75 04/05/24 03:27 36.5 C 78 18 112/67 97 04/04/24 22:05 04/04/24 22:02 36.4 C L 77 18 119/69 98 04/04/24 21:45 78 O2 Del Method O2 Flow Rate 04/05/24 09:16 04/05/24 07:51 Nasal Cannula 3 04/05/24 07:07 04/05/24 03:27 Nasal Cannula 2 04/04/24 22:05 Room Air 04/04/24 22:02 Nasal Cannula 3 04/04/24 21:45 Laboratory Results Laboratory Results - last 24 hr 04/04/24 04/04/24 04/04/24 05:59 11:32 13:50 WBC RBC Hgb Hct MCV MCH MCHC RDW Std Deviation RDW Coeff of Jono Plt Count MPV Sodium Potassium Chloride Carbon Dioxide Anion Gap BUN Creatinine Est Cr Clr Drug Dosing eGFR BUN/Creatinine Ratio Glucose POC Glucose 249 H Calcium Procalcitonin 6.60 H Urine Osmolality 515 04/04/24 04/04/24 04/05/24 15:55 20:12 07:24 WBC 0.87 L* RBC 2.35 L Hgb 7.7 L Hct 22.2 L MCV 94.5 MCH 32.8 MCHC 34.7 RDW Std Deviation 53.7 H RDW Coeff of Jono 15.4 H Plt Count 84 L MPV 11.1 Sodium 133 L Potassium 4.5 Chloride 103 Carbon Dioxide 22 Anion Gap 8 BUN 47 H Creatinine 1.55 H Est Cr Clr Drug Dosing 46.3 eGFR 45.81 BUN/Creatinine Ratio 30.3 H Glucose 226 H POC Glucose 227 H 264 H Calcium 9.1 Procalcitonin Urine Osmolality 04/05/24 08:07 WBC RBC Hgb Hct MCV MCH MCHC RDW Std Deviation RDW Coeff of Jono Plt Count MPV Sodium Potassium Chloride Carbon Dioxide Anion Gap BUN Creatinine Est Cr Clr Drug Dosing eGFR BUN/Creatinine Ratio Glucose POC Glucose 243 H Calcium Procalcitonin Urine Osmolality PG Care Time/CCT Total # of Minutes Spent Total Time Spent with Patient: Total time spent is greater than 50% in coordination of care (as documented) at patient's floor/unit and/or counseling patient: Coding Level of Care Code 76522 SUB INP/OBS CARE 3/50MIN Diagnoses Acute kidney injury N17.9 CKD (chronic kidney disease), stage III N18.3 Hyponatremia E87.1 Metastatic lung cancer (metastasis from lung to other site) C34.90
--- NOTE | 2024-04-05 09:39 | XRay Report ---
XR chest 1V portable HISTORY: 78 years-old Male elevated procal acute shortness of breath COMPARISON: Chest CT 04/03/2024 TECHNIQUE: AP view of the chest FINDINGS: Cardiac silhouette is enlarged with pulmonary vascular congestion. Small left pleural effusion with u nchanged linear left midlung and left basilar consolidation. No pneumothorax. Bones appear grossly in tact. Emphysema with chronic pulmonary fibrosis. IMPRESSION: 1. Emphysema Emphysema with chronic fibrosis. 2. Unchanged left pleural effusion and left basilar linear scarring/atelectasis. 3. Linear lucency projected over the right lung base is likely secondary to summation density. No def inite pneumoperitoneum identified. Correlation with upright abdominal radiograph may be considered. ACT 112: Negative or not required by law. The above report was generated using voice recognition software. It may contain grammatical, syntax o r spelling errors. Electronically signed by: Dinh Healy M.D. 04/05/2024 9:37 AM
--- NOTE | 2024-04-05 09:40 | XRay Report ---
KUB HISTORY: Acute onset abdominal pain with constipation constipation COMPARISON: CT abdomen and pelvis 03/31/2024 FINDINGS: Moderate fecal retention. Nonobstructive bowel gas pattern. Bibasilar densities are again n oted. Iliac stent grafts. Lumbar spinal fusion hardware. No renal calculi. No ureteral calculi. No p neumoperitoneum or pneumatosis. No fracture. IMPRESSION: Nonobstructive bowel gas pattern with moderate colonic fecal retention. ACT 112: Negative or not required by law. The above report was generated using voice recognition software. It may contain grammatical, syntax o r spelling errors. Electronically signed by: Dinh Healy M.D. 04/05/2024 9:39 AM
[2024-04-05] MEDS: METOPROLOL TARTRATE 1 MG/ML VIAL IV STA ×2 (09:59→11:38)
[2024-04-05] MEDS ORDERED: 0.2 MICRON FILTER SET 1 EACH IV STA (10:38)
[2024-04-05] MEDS ORDERED: STAT IV Infusion **Titration per Protocol STA (10:38)
[2024-04-05] MEDS: AMIODARONE / D5W 150 MG/100 ML BAG IV STA (13:15)
[2024-04-05] MEDS: AMIODARONE IV BOLUS & DRIP IV STA (13:21)
[2024-04-05] MEDS: AMIODARONE / D5W 360 MG/200 ML BAG IV ONE (13:42)
[2024-04-05] MEDS: AMIODARONE / D5W 360 MG/200 ML BAG IV SCH (16:24)
[2024-04-05] MEDS ORDERED: AMIODARONE / D5W 360 MG/200 ML BAG IV SCH (18:50)
[2024-04-05] MEDS: MoRPHine SULFATE 2 MG/ML CARP IV PRN (20:40)
--- NOTE | 2024-04-05 21:02 | Electrocardiogram Report ---
Test Reason : Blood Pressure : */* mmHG Vent. Rate : 118 BPM Atrial Rate : 104 BPM P-R Int : * ms QRS Dur : 108 ms QT Int : 362 ms P-R-T Axes : * 54 72 degrees QTcB Int : 507 ms Atrial fibrillation with rapid ventricular response Nonspecific ST abnormality Cannot rule out Inferior infarct Abnormal ECG When compared with ECG of 31-Mar-2024 16:42, Atrial fibrillation has replaced Sinus rhythm QRS duration has increased Nonspecific T wave abnormality now evident in Lateral leads Confirmed by Haris Mustafa ([id number]) on 04/05/2024 9:02:05 PM Referred By: Clarisse Choudhury Confirmed By: Haris Mustafa
--- NOTE | 2024-04-05 21:18 | Magnetic Resonance Report ---
EXAM: MR brain wo con CLINICAL HISTORY: Right hand weakness TECHNIQUE: MRI of the brain was performed without IV contrast with multiplanar sequences obtained. COMPARISON: Prior CT brain dated 04/03/2024 was reviewed. FINDINGS: Brain Parenchyma: No evidence of acute infarction or hemorrhage. Normal grey-white matter differentiation. No mass lesions identified. Bilateral deep white matter periventricular sheets and small adjacent foci of bright T2 and FLAIR signal with no related edema or mass effect denoting chronic deep white matter ischemia. Ventricles and Sulci: Mild bilateral symmetrical dilatation of the supra-tentorial ventricular system with no midline shift with widened cortical sulci and extraaxial CSF spaces (age matched involutional changes). No evidence of hydrocephalus. Posterior Fossa: Cerebellum appears normal without evidence of mass lesions or signal abnormalities. A 4 x 2 mm focal area of CSF signal is involving the right midbrain aspect, representing old lacunar infarct. Cranial Nerves: Normal course and appearance of cranial nerves identified. Vessels: No evidence of vascular malformations or aneurysms. Intracranial arteries and veins appear normal without evidence of stenosis or occlusion. Orbits and Skull Base: Orbits and skull base structures are normal without evidence of abnormalities. IMPRESSION: 1. No acute intracranial abnormality identified. 2. Chronic deep white matter ischemia 3. 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 4. Age matched involutional brain changes. 5. Findings are matched with prior CT brain. Electronically signed by Keiko Feng 04-05-2024 9:18 PM
[2024-04-05] MEDS: LORazepam 0.5 MG TAB PO PRN (23:30)
--- NOTE | 2024-04-05 23:33 | Hospitalist Progress Note ---
Date of Service April 05, 2024 Assessment & Plan (1) Diffuse pain: Plan: 1.) diffuse pain due to chemotherapy 2.) Antineoplastic chemotherapy induced pancytopenia 78yo male with history of metastatic adenocarcinoma of the lung currently on chemotherapy with Carboplatin, Paclitaxel and Pembrolizumab presenting with diffuse body pain, persistent despite PO Oxycodone taken at home. Patient has experienced similar pain in the past - thought likely due to his chemotherapy treatment. Typically occurs every other month. Some improvement with IV morphine given in the ER. -Admit to Medical -Morphine 2-4mg IV q 3 hours as needed for pain management -Zofran PRN nausea -Narcan available for accidental overdose -Docusate/Senna and Miralax available for bowel management pain appears better controlled. will continue above meds. After sustaining a fall, patient had a ct scan of his head: negative. Right eye had subconjunctival hemorrhage, no pain or change in vision Due to hypoxia, concern that this is pneumonitis from immunotherapy. added IV corticosteroids x 2 days. will start prednisone 90 mg in AM. heme ordered cortisol/ acth prior to giving steroids. cortisol is normal Ordered MRI negative for stroke. Due to anemia: recommended transfusion, patient refused. New onset atrial fibrillation Started patient on amiodarone drip, due to hypotension, transitioned to lower rate d/w heme oncology -Continue Gabapentin -Tylenol PRN Chronic kidney disease stage 3b creatinine improving will monitor. (2) Metastatic lung cancer (metastasis from lung to other site): Plan: Patient follows with Oncology - on active chemotherapy. Question of possible pneumonitis given his ongoing SOB and cough. His Cycle 3 of treatment was recently held and he was treated with steroids. -Oncology consultation appreciated procal is negative. no fevers, will hold empiric zosyn moving forward repeat chest x ray did not show any signs of consiloidation. (3) DM type 2 (diabetes mellitus, type 2): Plan: Chronic. Last KozD1O=2.9 on 01/21/24. Patient with variable blood sugars - response to the steroids he receives with chemotherapy. He has been seen by Diabetes [facility] for this issue on 03/23/24. -Lantus 12u BID with ISS -Goal blood sugar 110 - 140 Plan Chronic Medical Issues: COPD -Continue Breo-Ellipta -Continue Albuterol PRN -Continue Tessalon PRN JAY -Continue CPAP Hyperlipidemia -Continue Crestor 20mg po daily GERD -Continue Protonix 40mg po BID Depression -Continue Citalopram 60mg po qAM F/E/N - NSS at 80mL/hr x 1L Ppx - Lovenox 40u Code - Full per discussion with patient Dispo - Admit to medical Admission and Anticipated Discharge Date Admission Date: March 31, 2024 Subjective Patient reports having right hand numbness, though this has been ongoing for 3 days now. Physical Exam Physical Exam: General: patient reports no new symptoms. eye: right eye had red sclera but no pain. able to see Skin: warm, dry, intact, no rashes or lesions HEENT: NC/AT, PERRL, EOMI Heart: +S1/S2, regular, no m/r/g Lungs: equal air entry bilaterally, no rales/rhonchi/wheezes Abd: +BS, soft, NT/ND, no masses/organomegaly/ascites Ext: warm, 2+ pulses in UE/LE bilaterally, no clubbing/cyanosis or edema Neuro: nonfocal, patient AA&O x 4 Results & Data Results & Data Vital Signs (Past 12 Hours) Vital Signs Temp Pulse Pulse Resp BP BP BP 04/05/24 19:23 36.4 C L 81 20 135/57 L 04/05/24 17:25 125/66 04/05/24 16:04 80 116/63 04/05/24 15:35 107/66 04/05/24 14:48 36.6 C 100 H 17 82/49 L 04/05/24 14:15 108 H 04/05/24 13:34 04/05/24 13:31 91 H 93/51 L 04/05/24 12:59 36.6 C 101 H 16 115/71 04/05/24 12:45 112 H 04/05/24 11:54 93 H 95/59 L 04/05/24 11:38 106 H 110/63 Pulse Ox O2 Del Method O2 Flow Rate 04/05/24 19:23 95 Room Air 04/05/24 17:25 04/05/24 16:04 04/05/24 15:35 04/05/24 14:48 97 Nasal Cannula 2 04/05/24 14:15 04/05/24 13:34 Nasal Cannula 3 04/05/24 13:31 04/05/24 12:59 95 Nasal Cannula 3 04/05/24 12:45 04/05/24 11:54 04/05/24 11:38 PG Care Time/CCT Total # of Minutes Spent Total Time Spent with Patient: Total time spent is greater than 50% in coordination of care (as documented) at patient's floor/unit and/or counseling patient: Coding Level of Care Code 63350 SUB INP/OBS CARE 3/50MIN Diagnoses Diffuse pain R52 Metastatic lung cancer (metastasis from lung to other site) C34.90 DM type 2 (diabetes mellitus, type 2) E11.9
[2024-04-06 07:09] LABS: Hematocrit (blood only) 21.7 % (42.0-52.0); Hemoglobin 7.6 g/dl (14.0-18.0); Mean Corpuscular Hemoglobin 33.9 pg (25.0-34.0); Mean Corpuscular Volume 96.9 fL (80.0-100.0); Mean Platelet Volume 11.8 fL (9.4-12.4); Nucleated RBC # (auto) 0.02 K/uL (0.00-0.12); Nucleated RBC % (auto) 0.5 %; Platelet Count 91 K/uL (130-400); RDW Coefficient of Variation 15.8 % (11.5-14.5); RDW Standard Deviation 55.3 fL (36.4-46.3); Red Blood Count 2.24 M/uL (4.70-6.10); White Blood Count 3.79 K/ul (4.8-10.8)
[2024-04-06 07:22] LABS: Creatinine Clr Calc Pharmacy 31.8 ml/min; Potassium 3.9 mmol/L (3.5-5.1)
--- NOTE | 2024-04-06 07:36 | Hospitalist Progress Note ---
Date of Service April 06, 2024 Assessment & Plan (1) Diffuse pain: Plan: (2) Metastatic lung cancer (metastasis from lung to other site): (3) DM type 2 (diabetes mellitus, type 2): Plan 78yo male with history of metastatic adenocarcinoma of the lung currently on chemotherapy with Carboplatin, Paclitaxel and Pembrolizumab presenting with diffuse body pain, persistent despite PO Oxycodone taken at home. Patient has experienced similar pain in the past - thought likely due to his chemotherapy treatment. opiate induced constipation. Antineoplastic chemotherapy induced pancytopenia-resolved with neupogen -Morphine 2-4mg IV q 3 hours as needed for pain management -Continue Oxycodone Gabapentin-Tylenol PRN After sustaining a fall, patient had a ct scan of his head: negative.Ordered MRI negative for stroke/ [facility] mets Right eye had subconjunctival hemorrhage, no pain or change in vision Due to hypoxia, concern that this is pneumonitis from immunotherapy. Baseline history of COPD on home inhalers and cpap at night added IV corticosteroids x 2 days., on Zosyn briefly now stopped prednisone 90 mg in AM.( high dose with concern for pneumonitis) heme ordered cortisol/ acth prior to giving steroids. cortisol is normal Due to anemia: recommended transfusion, patient refused. New onset atrial fibrillation rvr, now sinus rhythm Started patient on amiodarone drip, due to hypotension, transitioned to lower rate transition to po 04/06 Diabetes Chronic. Last [id number]=8.9 on 01/21/24. Patient with variable blood sugars - He has been seen by Diabetes Clinic for this issue on 03/23/24. -Lantus 12u BID with ISS -Goal blood sugar 110 - 140 -Docusate/Senna and Miralax available for bowel management pain appears better controlled. will continue above meds. una with Chronic kidney disease stage 3b creatinine rising up, pt with poor po intake, pt is not on comfort care at this time will use gentle hydration and discuss Hyperlipidemia -Continue Crestor 20mg po daily GERD -Continue Protonix 40mg po BID Depression -Continue Citalopram 60mg po qAM Ppx - Lovenox 40u Code - Full per discussion with patient Admission and Anticipated Discharge Date Admission Date: March 31, 2024 Subjective pt has some left knee pain after fall, knee has effusion confirmed on xray but no fracture, has visible ecchymosis. mild dementia, [place], agreeable to hospice Physical Exam Physical Exam: cardiac exam with murmur, regular(recent afib RVR) lungs diminished at bases ext , left knee with ecchymosis and effusion, no particularly tender spots, no joint instability Results & Data Results & Data Vital Signs (Past 12 Hours) Vital Signs Temp Pulse Pulse Resp BP Pulse Ox O2 Del Method 04/06/24 03:38 98.1 F 83 18 128/65 92 Nasal Cannula 04/05/24 23:49 84 04/05/24 23:34 99.1 F 76 16 128/86 94 Nasal Cannula 04/05/24 21:30 Nasal Cannula O2 Flow Rate 04/06/24 03:38 3.0 04/05/24 23:49 04/05/24 23:34 3.0 04/05/24 21:30 3 Laboratory Results review cbc review chemistry PG Care Time/CCT Total # of Minutes Spent Total Time Spent with Patient: Total time spent is greater than 50% in coordination of care (as documented) at patient's floor/unit and/or counseling patient: Coding Level of Care Code 64001 SUB INP/OBS CARE 3/50MIN Diagnoses Diffuse pain R52 Metastatic lung cancer (metastasis from lung to other site) C34.90 DM type 2 (diabetes mellitus, type 2) E11.9
[2024-04-06] MEDS ORDERED: oxyCODONE HCL IR 5 MG TAB (IMMEDIATE RELEASE) PO PRN ×2 (07:39→11:44)
[2024-04-06] MEDS: MoRPHine SULFATE 4 MG/ML 1 ML CARP\\VIAL IV PRN (07:50)
[2024-04-06] MEDS: ASPIRIN 81 MG ECTAB PO SCH (08:30)
--- NOTE | 2024-04-06 08:55 | Nephrology Progress Note ---
Date of Service April 06, 2024 Assessment & Plan (1) Acute kidney injury: Plan: * Resolved following IV hydration * Patient is nonoliguric * Encourage oral hydration (2) CKD (chronic kidney disease), stage III: Plan: * CKD stage G3a/A3. Baseline Cr1.5-2.0 mg/dL. History of JAVED requiring dialysis in 2019. 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 MACR 1610 mcg/mg. Follows with Dr. De León as outpatient. (3) Hyponatremia: Plan: * Mild, asymptomatic hyponatremia * Clinically euvolemic to volume contracted * Serum Na 131 today * Increase NaCl to 2 g p.o. BID * Uosm > 300 c/w ADH effect * Monitor BMP (4) Metastatic lung cancer (metastasis from lung to other site): Plan: * Oncology has ordered Neupogen for correction of neutropenia * Cortisol and a TCH level has been ordered. Patient has been started on Solu- Medrol therapy. * Palliative care has met with patient and provided Ativan for management of anxiety/nausea. Admission and Anticipated Discharge Date Admission Date: March 31, 2024 Subjective Mr. Alvarez was evaluated in his hospital room this morning. He was breathing comfortably flat in bed on O2 at 3 L/minute. He is tolerating NaCl supplement without GI upset Review of Systems Constitutional: no fever Eyes: no problem reported Ear, Nose, Mouth, Throat: no problem reported Respiratory: no cough and no dyspnea Cardiovascular: no chest pain Gastrointestinal: no abdominal pain, no nausea, no vomiting and no diarrhea/loose stools Genitourinary: no dysuria or no hematuria Physical Exam Constitutional: + frail appearing; not in distress ENMT: external ear and nose normal, oropharynx normal Neck: trachea midline, no thyromegaly Respiratory: normal respiratory effort, lungs clear to auscultation Cardiovascular: RRR, no murmur, no edema Gastrointestinal (Abdomen): normal bowel sounds, soft, nontender, no hepatosplenomegaly Musculoskeletal: Extremities: no cyanosis Neurologic: awake; not confused Results & Data Vital Signs (Past 12 Hours) Vital Signs Temp Pulse Pulse Resp BP Pulse Ox O2 Del Method 04/06/24 07:39 36.5 C 82 19 128/53 L 90 Nasal Cannula 04/06/24 03:38 36.7 C 83 18 128/65 92 Nasal Cannula 04/05/24 23:49 84 02/09/25 23:34 37.3 C 76 16 128/86 94 Nasal Cannula 04/05/24 21:30 Nasal Cannula O2 Flow Rate 04/06/24 07:39 3.0 04/06/24 03:38 3.0 04/05/24 23:49 04/05/24 23:34 3.0 04/05/24 21:30 3 Laboratory Results Laboratory Results - last 24 hr 04/05/24 04/05/24 04/05/24 12:03 16:07 20:44 WBC RBC Hgb Hct MCV MCH MCHC RDW Std Deviation RDW Coeff of Jono Plt Count MPV Absolute Nucleated RBC Nucleated RBC % (auto) Sodium Potassium Chloride Carbon Dioxide Anion Gap BUN Creatinine Est Cr Clr Drug Dosing eGFR BUN/Creatinine Ratio Glucose POC Glucose 296 H 239 H 239 H Calcium Urine Osmolality 04/06/24 04/06/24 04/06/24 05:32 05:40 07:34 WBC 3.79 L RBC 2.24 L Hgb 7.6 L Hct 21.7 L MCV 96.9 MCH 33.9 MCHC 35.0 RDW Std Deviation 55.3 H RDW Coeff of Jono 15.8 H Plt Count 91 L MPV 11.8 Absolute Nucleated RBC 0.02 Nucleated RBC % (auto) 0.5 Sodium 131 L Potassium 3.9 Chloride 101 Carbon Dioxide 22 Anion Gap 8 BUN 60 H Creatinine 2.07 H D Est Cr Clr Drug Dosing 31.8 eGFR 32.38 BUN/Creatinine Ratio 29.0 H Glucose 132 H POC Glucose 143 H Calcium 9.0 Urine Osmolality 491 L PG Care Time/CCT Total # of Minutes Spent Total Time Spent with Patient: Total time spent is greater than 50% in coordination of care (as documented) at patient's floor/unit and/or counseling patient: Coding Level of Care Code 68227 SUB INP/OBS CARE 3/50MIN Diagnoses Acute kidney injury N17.9 CKD (chronic kidney disease), stage III N18.3 Hyponatremia E87.1 Metastatic lung cancer (metastasis from lung to other site) C34.90
[2024-04-06] MEDS: predniSONE 20 MG TAB PO SCH (09:04)
[2024-04-06] MEDS: AMIODARONE 200 MG TAB PO SCH (09:05)
[2024-04-06] MEDS: oxyCODONE HCL IR 5 MG TAB (IMMEDIATE RELEASE) PO PRN (10:25)
[2024-04-06] MEDS: LORazepam 0.5 MG TAB PO PRN (10:51)
[2024-04-06] MEDS: MoRPHine SULFATE 4 MG/ML 1 ML CARP\\VIAL IV STA (10:53)
--- NOTE | 2024-04-06 12:07 | Palliative Care Progress Note ---
Date of Service April 06, 2024 Assessment & Plan (1) Palliative care by specialist: (2) Acute pain due to injury: Plan: Pt c/o severe unremitting left knee pain since GLF on 04/03. See subjective section for details. Pt shared that the current opiate analgesics are offering no relief of pain. Discussed that he has had minimal usage of either the oxy or morphine. He shared that the 5mg oxycodone PO and 2mg IV morphine do not touch his pain at all. Discussed with the pt that he has not been using the PRN medications as ordered for pain and therefore not optimizing analgesic use. He shared that he avoids opiates for fear of addiction. Discussed importance of optimizing pain management and benefits for overall health and healing. Encouraged Pt to request PRN medications for pain before pain escalates. PLAN Ordered one time morphine 4mg IV for acute pain crisis Increased oxycodone IR to 10mg PO q4h PRN for mild-mod pain Increased oxycodone IR to 15mg PO q4h PRN for severe pain Will reassess need for scheduled pain medications and have further conversation with pt when he is not in severe acute pain. (3) Anxiety associated with cancer diagnosis: Plan: Pt started yesterday on ativan 0.25mg IVP q6h PRN and 0.5mg ativan PRN at bedtime for anxiety/insomnia. He shared that he has not gotten any sleep in 2 days and medications not helping. Discussed with the pt that he has not been using the PRN medications as ordered for anxiety and encouraged asking BSRN for medication for anxiety as needed. Encouraged BSRN to frequently assess need for PRN medications. Will consider increase dose vs scheduled doses of ativan dosing if current regime optimized and not controlling complaint. Pt shared that his knee pain is also making it difficult to sleep (see #2). Plan see above Plan discussed with attending, pt, and BSRN. Encouraged BSRN to optimize pain/anxiety management with PRN medications. Admission and Anticipated Discharge Date Admission Date: March 31, 2024 Subjective Saw pt at bedside as continuation of care per previous palliative care provider notes. No visitors present. Pt lying in bed, moaning in pain and rubbing/holding hhis left knee which is elevated on pillows. Pt states he has had severe pain in this knee since a GLF on 04/03/24. He shared that the pain is sharp and constant. He could not i dentify any relieving factors. It is exacerbated with any movement. He shared that neither the morphine oxycodone offers any relief as ordered. He shared that he did not sleep at all last night due to refractory pain. Requested BSRN offer pt 4mg morphine IVP x1 and then reassess pain level. Review of Systems Review of Systems: All systems reviewed & are unremarkable except as noted in Subjective Physical Exam Physical Exam: Pt lying in bed, tachypneic and moaning in pain. Constitutional: well developed, + obese and + in distress; + uncomfortable pt in distress 2/2 knee pain Eyes: PERRL, conjunctivae normal, anicteric sclerae ENMT: external ear and nose normal, oropharynx normal Neck: trachea midline, no thyromegaly Respiratory: normal respiratory effort, able to speak in complete sentences and + tachypneic; no respiratory distress Cardiovascular: RRR, no murmur, no edema Gastrointestinal (Abdomen): normal bowel sounds, soft, nontender, no hepatosplenomegaly Musculoskeletal: no cyanosis or clubbing, extremities motor strength 5/5 Skin: normal turgor; no jaundice pale, warm and dry Neurologic: PERRL, EOMI, accommodation nl, no face palsy, no dysarthria Results & Data Vital Signs (Past 12 Hours) Vital Signs Temp Pulse Pulse Resp BP Pulse Ox O2 Del Method 04/06/24 11:25 36.5 C 107 H 18 116/61 93 Nasal Cannula 04/06/24 10:34 Nasal Cannula 04/06/24 09:34 88 04/06/24 07:39 36.5 C 82 19 128/53 L 90 Nasal Cannula 04/06/24 03:38 36.7 C 83 18 128/65 92 Nasal Cannula 04/05/24 23:49 84 O2 Flow Rate 04/06/24 11:25 3.0 04/06/24 10:34 3 04/06/24 09:34 04/06/24 07:39 3.0 04/06/24 03:38 3.0 04/05/24 23:49 Laboratory Results Abnormal lab results 04/05/24 04/05/24 04/05/24 Range/Units 12:03 16:07 20:44 WBC (4.8-10.8) K/ul RBC (4.70-6.10) M/uL Hgb (14.0-18.0) g/dl Hct (42.0-52.0) % RDW Std Deviation (36.4-46.3) fL RDW Coeff of Jono (11.5-14.5) % Plt Count (130-400) K/uL Sodium (136-145) mmol/L BUN (6-23) mg/dl Creatinine (0.6-1.4) mg/dl BUN/Creatinine Ratio (10-20) Glucose (70-99(Fasting)) mg/dl POC Glucose 296 H 239 H 239 H (70-99) mg/dl Urine Osmolality (500-800) mOsm/kg 04/06/24 04/06/24 04/06/24 Range/Units 05:32 05:40 07:34 WBC 3.79 L (4.8-10.8) K/ul RBC 2.24 L (4.70-6.10) M/uL Hgb 7.6 L (14.0-18.0) g/dl Hct 21.7 L (42.0-52.0) % RDW Std Deviation 55.3 H (36.4-46.3) fL RDW Coeff of Jono 15.8 H (11.5-14.5) % Plt Count 91 L (130-400) K/uL Sodium 131 L (136-145) mmol/L BUN 60 H (6-23) mg/dl Creatinine 2.07 H D (0.6-1.4) mg/dl BUN/Creatinine Ratio 29.0 H (10-20) Glucose 132 H (70-99(Fasting)) mg/dl POC Glucose 143 H (70-99) mg/dl Urine Osmolality 491 L (500-800) mOsm/kg 04/06/24 Range/Units 11:21 WBC (4.8-10.8) K/ul RBC (4.70-6.10) M/uL Hgb (14.0-18.0) g/dl Hct (42.0-52.0) % RDW Std Deviation (36.4-46.3) fL RDW Coeff of Jono (11.5-14.5) % Plt Count (130-400) K/uL Sodium (136-145) mmol/L BUN (6-23) mg/dl Creatinine (0.6-1.4) mg/dl BUN/Creatinine Ratio (10-20) Glucose (70-99(Fasting)) mg/dl POC Glucose 162 H (70-99) mg/dl Urine Osmolality (500-800) mOsm/kg Diagnostic Findings Abdomen/Pelvis CT 03/31/24 17:07 EXAMINATION: CT of the abdomen and pelvis performed without contrast TECHNIQUE: Helical CT images from the lung bases through the symphysis pubis were obtained without contrast. Coronal and sagittal reformatted images were generated at a workstation for further assessment. Dose reduction techniques were achieved by using automatic exposure control and/or adjustment of mA and/or kV according to patient size and/or use of iterative reconstruction technique. COMPARISON: None HISTORY: Trauma FINDINGS: Lower chest: There is a small left basilar pleural effusion seen. Mild scattered areas of patchy groundglass and small nodular opacity throughout the lung bases in the right middle lobe. Liver: No suspicious liver lesions. Gallbladder: Punctate gallstone seen at the neck. No evidence of acute cholecystitis. Spleen: Normal size. Pancreas: No suspicious pancreatic lesions. The pancreatic duct is not dilated. Adrenal glands: No adrenal nodules. Kidneys: No hydronephrosis or obstructing renal stones. There is an 8 mm lesion at the inferior pole of the left kidney which is high in attenuation, most consistent with a hemorrhagic/proteinaceous cyst. Otherwise no additional visualized masses seen on this noncontrast CT. Bladder / Pelvic organs: Unremarkable. Bowel: No bowel obstruction. No abnormal bowel wall thickening. The appendix is unremarkable. Left colonic diverticulosis without evidence for diverticulitis. There is a large colonic stool burden. Lymph nodes: No retroperitoneal, mesenteric, or pelvic lymphadenopathy. Peritoneum / Retroperitoneum: No free fluid or air within the abdomen. Vessels: No infrarenal aortic aneurysm. Heavy aortoiliac calcification. Bones and soft tissues: No suspicious lesion in the bones. L5-S1 fixation changes. Small fat-containing inguinal hernias. IMPRESSION: No evidence for an acute traumatic abnormality of the abdomen or pelvis. Patchy groundglass and nodular densities in the right middle lobe and lower lungs, appear infectious. There is a small left pleural effusion. Electronically signed by Carlo Pierson 03-31-2024 7:[address] 03/31/24 17:16 CT cervical spine without IV contrast History: Trauma Comparison: None Technique: Using multidetector thin collimation helical acquisition technique, axial, coronal and sagittal CT images through the cervical spine were obtained without intravenous contrast. Dose reduction techniques were achieved by using automatic exposure control and/or adjustment of mA and/or kV according to patient size and/or use of iterative reconstruction technique. Findings: The cervical vertebrae are normally aligned. Straightened cervical lordosis. No acute fracture or subluxation. No prevertebral edema. Mild multilevel discogenic and facet degenerative changes. There is moderate atlantodental degenerative change. No abnormality of the paraspinous soft tissues. The lungs appear emphysematous. A left pleural effusion is partially seen. Impression: No acute fracture or traumatic subluxation. A left pleural effusion is partially seen at the left lung apex. Electronically signed by Carlo Pierson 03-31-2024 7:[address] 04/03/24 06:50 EXAM: CT head/brain wo con CLINICAL HISTORY: Fall. TECHNIQUE: Axial non-contrast CT scan of the brain was performed from the skull base to the high parietal region with coronal and sagittal reformats. One of the following dose reduction techniques were utilized for this exam: Automated exposure control, adjustment of the mA and/or kV according to patient size, use of iterative reconstruction. CTDI: 37.7mGy, DLP: 547.75mGy*cm. COMPARISON: None. FINDINGS: Accentuated bilateral cerebral periventricular white matter hypodensities denoting hypoperfusion with bilateral fronto-parietal periventricular and subcortical hypodense foci are noted. The grey white mater differentiation is preserved. Normal CT appearance of the posterior fossa structures. No intracerebral or extra axial hematoma. Dilated ventricular system, cortical sulci and extra-axial CSF spaces. No midline shifts or deformity. No definite calvarial fractures. The osseous structures in the skull base are unremarkable. The scanned paranasal sinuses are unremarkable IMPRESSION: 1. No skull fractures. 2. No intra or extra-axial hemorrhage. 3. No parenchymal territorial hypodense areas suggestive of acute ischemic insult. 4. Microvascular ischemic changes with age matches mild brain involutional changes. Electronically signed by Keiko Feng 04-03-2024 08:[address] 04/03/24 08:56 CT OF THE CHEST WITHOUT IV CONTRAST CLINICAL HISTORY: Hypoxia. History of lung cancer. COMPARISON STUDY: Chest CT February 29, 2024. CT of the abdomen and pelvis March 31, 2024. Chest radiograph April 02, 2024. CT DOSE: 525.96 mGy.cm TECHNIQUE: Axial images of the chest were obtained without IV contrast. Images were reviewed in the axial, sagittal, and coronal planes. IV contrast was not administered for this examination. Automated exposure control was utilized for the study. A dose lowering technique was utilized adhering to the principles of ALARA. FINDINGS: The heart is mildly enlarged. There is moderate coronary artery and aortic valvular calcification. There is no pericardial effusion. Calcified mediastinal and right hilar lymph nodes are noted. Prominent mediastinal lymph nodes are similar to CT of February 29, 2024. A prevascular lymph node on image 85 measures 1.2 x 0.8 cm. A small left pleural effusion has mildly increased in size since CT of February 29, 2024. There is no right pleural effusion. There is no pneumothorax. Band-like left upper lobe opacity and subpleural left lower lobe opacity are similar to CT of February 29, 2024. Central airways are patent. There is no consolidation to suggest pneumonia. Interlobular septal thickening is present. There are groundglass opacities within the lungs. There is underlying emphysema. Mild alveolar opacities within the right middle lobe are present. These are similar to CT of May 07, 2022. Multiple subacute to chronic left-sided rib fractures are again noted. There are no acute fractures within the thorax. IMPRESSION: 1. Minimal right middle lobe airspace opacity suggestive of an infectious process. 2. Findings suggestive of mild interstitial pulmonary edema. 3. Mild increase in size of a small left pleural effusion. This remains indeterminate and may be treatment-related however imaging follow-up to ensure resolution/stability is recommended. 4. Band-like left upper lobe opacity and subpleural left lower lobe opacity. These are unchanged since prior chest CT and favor posttreatment change. However, continued imaging follow-up is recommended to exclude the possibility of recurrent tumor. 5. No change in mildly enlarged mediastinal lymph nodes which are likely benign but can be assessed on follow-up exams. ACT 112: Negative or not required by law. Electronically signed by: Aubrey Carballo M.D. 04/03/2024 10:10 AM Chest X-Ray 04/05/24 08:54 XR chest 1V portable HISTORY: 78 years-old Male elevated procal acute shortness of breath COMPARISON: Chest CT 04/03/2024 TECHNIQUE: AP view of the chest FINDINGS: Cardiac silhouette is enlarged with pulmonary vascular congestion. Small left pleural effusion with unchanged linear left midlung and left basilar consolidation. No pneumothorax. Bones appear grossly intact. Emphysema with chronic pulmonary fibrosis. IMPRESSION: 1. Emphysema Emphysema with chronic fibrosis. 2. Unchanged left pleural effusion and left basilar linear scarring/atelectasis. 3. Linear lucency projected over the right lung base is likely secondary to summation density. No definite pneumoperitoneum identified. Correlation with upright abdominal radiograph may be considered. ACT 112: Negative or not required by law. The above report was generated using voice recognition software. It may contain grammatical, syntax or spelling errors. Electronically signed by: Dinh Healy M.D. 04/05/2024 9:37 AM KUB X-Ray 04/05/24 08:54 KUB HISTORY: Acute onset abdominal pain with constipation constipation COMPARISON: CT abdomen and pelvis 03/31/2024 FINDINGS: Moderate fecal retention. Nonobstructive bowel gas pattern. Bibasilar densities are again noted. Iliac stent grafts. Lumbar spinal fusion hardware. No renal calculi. No ureteral calculi. No pneumoperitoneum or pneumatosis. No fracture. IMPRESSION: Nonobstructive bowel gas pattern with moderate colonic fecal retention. ACT 112: Negative or not required by law. The above report was generated using voice recognition software. It may contain grammatical, syntax or spelling errors. Electronically signed by: Dinh Healy M.D. 04/05/2024 9:39 AM Brain MRI 04/05/24 14:36 EXAM: MR brain wo con CLINICAL HISTORY: Right hand weakness TECHNIQUE: MRI of the brain was performed without IV contrast with multiplanar sequences obtained. COMPARISON: Prior CT brain dated 04/03/2024 was reviewed. FINDINGS: Brain Parenchyma: No evidence of acute infarction or hemorrhage. Normal grey-white matter differentiation. No mass lesions identified. Bilateral deep white matter periventricular sheets and small adjacent foci of bright T2 and FLAIR signal with no related edema or mass effect denoting chronic deep white matter ischemia. Ventricles and Sulci: Mild bilateral symmetrical dilatation of the supra-tentorial ventricular system with no midline shift with widened cortical sulci and extraaxial CSF spaces (age matched involutional changes). No evidence of hydrocephalus. Posterior Fossa: Cerebellum appears normal without evidence of mass lesions or signal abnormalities. A 4 x 2 mm focal area of CSF signal is involving the right midbrain aspect, representing old lacunar infarct. Cranial Nerves: Normal course and appearance of cranial nerves identified. Vessels: No evidence of vascular malformations or aneurysms. Intracranial arteries and veins appear normal without evidence of stenosis or occlusion. Orbits and Skull Base: Orbits and skull base structures are normal without evidence of abnormalities. IMPRESSION: 1. No acute intracranial abnormality identified. 2. Chronic deep white matter ischemia 3. 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 4. Age matched involutional brain changes. 5. Findings are matched with prior CT brain. Electronically signed by Keiko Feng 04-05-2024 9:18 PM Medications Administered Current Inpatient Medications Acetaminophen (Acetaminophen 325 Mg Tab) 650 mg PO Q4H PRN PRN Reason: Pain or Fever Stop: 04/30/24 22:01 Last Admin: 04/06/24 00:11 Dose: 650 mg Albuterol (Albuterol Hfa 8 Gm Inhaler) 2 puffs INH Q6H PRN PRN Reason: shortness of breath or wheezing Stop: 05/01/24 01:20 Amiodarone HCl (Amiodarone 200 Mg Tab) 400 mg PO BIDM [facility] Stop: 05/06/24 07:59 Last Admin: 04/06/24 09:05 Dose: 400 mg Aspirin (Aspirin 81 Mg Ectab) 81 mg PO QAM [facility] Stop: 05/03/24 08:59 Last Admin: 04/06/24 08:30 Dose: 81 mg Benzonatate (Benzonatate 100 Mg Capsule) 200 mg PO Q8H PRN PRN Reason: cough Stop: 05/01/24 01:20 Bisacodyl (Bisacodyl 10 Mg Supp) 10 mg SD DAILY PRN PRN Reason: Constipation Stop: 04/30/24 22:01 Calcium Carbonate (Calcium Carbonate 500 Mg Chewable Tab) 1,500 mg PO Q4H PRN PRN Reason: Indigestion Stop: 05/04/24 06:12 Last Admin: 04/04/24 06:22 Dose: 1,500 mg Clopidogrel Bisulfate (Clopidogrel Bisulfate 75 Mg Tab) 75 mg PO DAILY [facility] Stop: 05/01/24 08:59 Last Admin: 04/06/24 08:31 Dose: 75 mg Dextrose (Dextrose 50% 50 Ml Syringe) 25 - 50 ml IV UD PRN; Protocol PRN Reason: Hypoglycemia Protocol Stop: 04/30/24 22:01 Last Admin: 04/01/24 07:00 Dose: 50 ml Diclofenac Sodium (Diclofenac Sod 1% Gel 100 Gm Tube) 2 gm EXT BID MONI; Protocol Stop: 05/02/24 08:59 Last Admin: 04/06/24 08:31 Dose: 2 gm Enoxaparin Sodium (Enoxaparin Inj 40 Mg/0.4 Ml Syr) 40 mg SQ HS [facility] Stop: 04/30/24 22:29 Last Admin: 04/05/24 21:26 Dose: 40 mg Fluticasone/Vilanterol (Fluticasone/Vilanterol 100/25mcg 14 Puffs/Inhaler) 1 puffs INH DAILY [facility] Stop: 05/01/24 08:59 Last Admin: 04/06/24 08:33 Dose: 1 puffs Gabapentin (Gabapentin 800 Mg Tab) 800 mg PO TID [facility] Stop: 05/01/24 08:59 Last Admin: 04/06/24 08:34 Dose: 800 mg Glucagon (Glucagon For Inj 1 Mg Vial) 1 mg SQ UD PRN; Protocol PRN Reason: Hypoglycemia Protocol Stop: 04/30/24 22:01 Glucose (Glucose 40% Gel 15 Gm Tube) 15 - 30 gm PO UD PRN; Protocol PRN Reason: Hypoglycemia Protocol Stop: 04/30/24 22:01 Glucose (Glucose 10 Tab/Tube) 4 - 8 tab PO UD PRN; Protocol PRN Reason: Hypoglycemia Protocol Stop: 04/30/24 22:01 Insulin Aspart (Insulin Aspart Per Unit Charge) 0 units SC ACHS [facility] Stop: 04/30/24 22:01 Last Admin: 04/06/24 08:27 Dose: 1 units Insulin Glargine (Lantus Per Unit Charge) 6 units SQ BID [facility] Stop: 05/02/24 08:59 Last Admin: 04/06/24 08:42 Dose: 6 units Linaclotide (Linaclotide 145 Mcg Capsule) 145 mcg PO DAILY [facility] Stop: 05/01/24 08:59 Last Admin: 04/06/24 08:35 Dose: 145 mcg Loperamide HCl (Loperamide Hcl 2 Mg Cap) 2 mg PO DAILY PRN PRN Reason: Diarrhea Stop: 05/03/24 06:50 Last Admin: 04/03/24 13:18 Dose: 2 mg Lorazepam (Lorazepam 0.5 Mg Tab) 0.5 mg PO HS PRN PRN Reason: Anxiety,insomnia Stop: 05/03/24 15:22 Last Admin: 04/05/24 23:30 Dose: 0.5 mg Lorazepam (Lorazepam 0.5 Mg Tab) 0.25 mg PO Q6H PRN PRN Reason: Anxiety,nausea Stop: 05/03/24 15:23 Last Admin: 04/06/24 10:51 Dose: 0.25 mg Miscellaneous (Carbohydrates For Hypoglycemia ) 15 - 30 gm PO UD PRN PRN Reason: Hypoglycemia Protocol Stop: 04/30/24 22:01 Last Admin: 04/01/24 06:34 Dose: 30 gm Miscellaneous (Remove Lidoderm Patch) 1 each N/A DAILY@2100 [facility] Stop: 04/06/24 21:01 Morphine Sulfate (Morphine Sulfate 4 Mg/Ml 1 Ml Carp\Vial) 2 mg IV Q3H PRN PRN Reason: Pain (6,7,8,9,10) Stop: 04/14/24 22:01 Last Admin: 04/06/24 07:50 Dose: 2 mg Naloxone HCl (Naloxone Hcl 0.4 Mg/1 Ml Vial/Carp) 0.1 mg IV Q5M PRN PRN Reason: Oversedation/Resp Depression Stop: 05/01/24 01:11 Ondansetron HCl (Ondansetron Inj 2 Mg/Ml 2 Ml Vial) 4 mg IV Q6H PRN PRN Reason: Nausea And Vomiting Stop: 04/30/24 22:01 Last Admin: 04/04/24 07:28 Dose: 4 mg Oxycodone HCl (Oxycodone Hcl Ir 5 Mg Tab (Immediate Release)) 15 mg PO Q4H PRN PRN Reason: Mild Pain (Scale 1, 2, 3) Stop: 04/15/24 01:20 Oxycodone HCl (Oxycodone Hcl Ir 5 Mg Tab (Immediate Release)) 10 mg PO Q4H PRN PRN Reason: Moderate Pain 4-6/10 Stop: 04/20/24 07:38 Pantoprazole Sodium (Pantoprazole 40 Mg Tab) 40 mg PO BID [facility] Stop: 05/01/24 08:59 Last Admin: 04/06/24 08:35 Dose: 40 mg Polyethylene Glycol (Polyethylene (Miralax) 17 Gm Pack) 17 gm PO DAILY PRN PRN Reason: Constipation Stop: 04/30/24 22:01 Prednisone (Prednisone 20 Mg Tab) 90 mg PO DAILY [facility] Stop: 05/06/24 08:59 Last Admin: 04/06/24 09:04 Dose: 90 mg Rosuvastatin Calcium (Rosuvastatin Calcium 20 Mg Tab) 20 mg PO QAM [facility] Stop: 05/01/24 08:59 Last Admin: 04/06/24 08:35 Dose: 20 mg Senna/Docusate Sodium (Docusate Sodium/Senna 50/8.6mg Tab) 1 tab PO QAM [facility] Stop: 05/01/24 08:59 Last Admin: 04/06/24 08:34 Dose: 1 tab Sodium Chloride (Sodium Chlor 7% 4 Ml Neb) 4 ml NEB BIDR PRN PRN Reason: sputum induction Stop: 05/02/24 18:59 Sodium Chloride (Sodium Chloride 1 Gm Tablet) 2 gm PO BID [facility] Stop: 05/06/24 20:59 PG Care Time/CCT Total # of Minutes Spent Total Time Spent with Patient: Total time spent is greater than 50% in coordination of care (as documented) at patient's floor/unit and/or counseling patient: Coding [place] [address] SUB INP/OBS CARE 2/35MIN Patient Type Established History Expanded Problem Focused Exam Expanded Problem Focused Medical Decision Making Moderate Complexity Diagnoses Palliative care by specialist Z51.5 Acute pain due to injury G89.11 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; C80.1
[2024-04-06] MEDS: LIDOCAINE 5% 1 PATCH TD STA (12:21)
--- NOTE | 2024-04-06 13:27 | XRay Report ---
XR knee LT 1 or 2V routine HISTORY: 78 years-old Male fall with knee pain COMPARISON: None TECHNIQUE: 2 views of the left knee FINDINGS: Chondrocalcinosis. Moderate medial with mild to moderate patellofemoral and mild lateral compartment osteoarthritis. Moderate size joint effusion. Arterial calcifications with mid thigh arterial graft w hich is partially imaged. No acute fracture or dislocation. IMPRESSION: 1. Moderate sized joint effusion without acute fracture or dislocation. 2. Tricompartmental osteoarthritis with chondrocalcinosis. ACT 112: Negative or not required by law. The above report was generated using voice recognition software. It may contain grammatical, syntax o r spelling errors. Electronically signed by: Dinh Healy M.D. 04/06/2024 1:25 PM
[2024-04-06] MEDS: SODIUM CHLORIDE 0.9% 1,000 ML IV SCH (15:14)
--- NOTE | 2024-04-06 18:07 | Hematology/Oncology Prog Note ---
Date of Service April 06, 2024 Assessment & Plan (1) Acute pain due to injury: (2) Diffuse pain: (3) Metastatic lung cancer (metastasis from lung to other site): Plan -Given severity of pain requiring opioids and moderate-sized effusion noted on imaging as well as on clinical exam, recommend orthopedics evaluation to see if he may benefit from drainage -Continue with prednisone since this has helped improve energy level, generalized joint pain and respiratory symptoms. -Transfuse for hemoglobin below 7.5 or if symptomatic Admission and Anticipated Discharge Date Admission Date: March 31, 2024 Subjective Complaining of severe left knee pain. , Pain was noticed shortly after a fall. Knee x-ray revealed moderate-sized joint effusion. Remains on prednisone 90 mg p.o. daily for immunotherapy related side effects. Results & Data Vital Signs (Past 12 Hours) Vital Signs Temp Pulse Pulse Resp BP Pulse Ox O2 Del Method 04/06/24 15:44 36.7 C 93 H 18 157/68 H Nasal Cannula 04/06/24 13:50 89 04/06/24 11:25 36.5 C 107 H 18 116/61 93 Nasal Cannula 04/06/24 10:34 Nasal Cannula 04/06/24 09:34 88 04/06/24 07:39 36.5 C 82 19 128/53 L 90 Nasal Cannula O2 Flow Rate 04/06/24 15:44 3.0 04/06/24 13:50 04/06/24 11:25 3.0 04/06/24 10:34 3 04/06/24 09:34 04/06/24 07:39 3.0
[2024-04-06] MEDS: SODIUM CHLORIDE 1 GM TABLET PO SCH (20:57)
--- NOTE | 2024-04-07 07:52 | Hospitalist Progress Note ---
Date of Service April 07, 2024 Assessment & Plan (1) Diffuse pain: Plan: (2) Metastatic lung cancer (metastasis from lung to other site): (3) DM type 2 (diabetes mellitus, type 2): Plan 78yo male with history of metastatic adenocarcinoma of the lung currently on chemotherapy with Carboplatin, Paclitaxel and Pembrolizumab presenting with diffuse body pain, persistent despite PO Oxycodone taken at home. Patient has experienced similar pain in the past - thought likely due to his chemotherapy treatment. opiate induced constipation. Antineoplastic chemotherapy induced pancytopenia-resolved with neupogen -Patient has had reducing doses of parenteral opiates for pain control -Continue Oxycodone Gabapentin-Tylenol PRN After sustaining a fall, patient had a ct scan of his head: negative.Ordered MRI negative for stroke/ [facility] Right eye had subconjunctival hemorrhage, no pain or change in vision Right knee x-ray due to pain shows joint effusion but no hardware issues or fractures Due to hypoxia, concern that this is pneumonitis from immunotherapy. Baseline history of COPD on home inhalers and cpap at night added IV corticosteroids x 2 days., Chest x-ray looks slightly worsened will reinstitute Zosyn therapy for HAP Still with requirement for oxygen supplementation due to acute respiratory failure with hypoxia prednisone 90 mg in AM.( high dose with concern for pneumonitis) heme ordered cortisol/ acth prior to giving steroids. cortisol is normal Due to anemia: recommended transfusion, patient refused, hemoglobin is remain low but stable. New onset atrial fibrillation rvr, now sinus rhythm diverts discussion for anticoagulation long-term Started patient on amiodarone drip, transition to po 04/06 Diabetes Chronic. Last [id number]=3.9 on 01/21/24. Patient with variable blood sugars - He has been seen by [facility] for this issue on 03/23/24. -Lantus 12u BID with ISS -Goal blood sugar 110 - 140 -Docusate/Senna and Miralax available for bowel management pain appears better controlled. will continue above meds. una with Chronic kidney disease stage 3b Improved with gentle hydration Hyperlipidemia -Continue Crestor 20mg po daily GERD -Continue Protonix 40mg po BID Depression -Continue Citalopram 60mg po qAM Ppx - Lovenox 40u Code - Full per discussion with patient and reconfirmed on 04/07/2023 Admission and Anticipated Discharge Date Admission Date: March 31, 2024 Subjective Patient looks improved today. Has still required oxygen which he typically does not wear at home. Review of chest x-ray looks like progression of pneumonia. [place] on antibiotics for HAP Discussed goals of care with the patient and he wishes to have be full code and continue with aggressive treatment for his cancer Physical Exam Physical Exam: cardiac exam with murmur, regular(recent afib RVR) lungs diminished at bases, overall increased rhonchi ext , left knee with ecchymosis and effusion, no particularly tender spots, no joint instability Results & Data Results & Data Vital Signs (Past 12 Hours) Vital Signs Temp Pulse Pulse Resp BP Pulse Ox O2 Del Method 04/07/24 07:19 82 04/07/24 03:25 97.9 F 84 18 155/77 H 92 Nasal Cannula 04/06/24 23:53 86 04/06/24 23:25 98.2 F 90 18 155/68 H 91 Nasal Cannula 04/06/24 20:00 Nasal Cannula 04/06/24 19:53 98.1 F 94 H 16 135/67 90 Room Air O2 Flow Rate 04/07/24 07:19 04/07/24 03:25 3.0 04/06/24 23:53 04/06/24 23:25 3.0 04/06/24 20:00 3 04/06/24 19:53 Laboratory Results Reviewed chemistry Reviewed chest x-ray Reviewed [id number] glucose PG Care Time/CCT Total # of Minutes Spent Total Time Spent with Patient: Total time spent is greater than 50% in coordination of care (as documented) at patient's floor/unit and/or counseling patient: Coding Level of Care Code 50016 SUB INP/OBS CARE 3/50MIN Diagnoses Diffuse pain R52 Metastatic lung cancer (metastasis from lung to other site) C34.90 DM type 2 (diabetes mellitus, type 2) E11.9
[2024-04-07 08:21] LABS: BUN Creatinine Ratio 34.9 (10-20); Calcium 8.7 mg/dl (8.6-10.3); Creatinine Clr Calc Pharmacy 38.3 ml/min; Potassium 3.9 mmol/L (3.5-5.1)
--- NOTE | 2024-04-07 08:41 | XRay Report ---
XR chest 1V portable CLINICAL HISTORY: eval for worsening pneumonia COMPARISON STUDY: Chest radiograph April 05, 2024. Chest CT February 29, 2024. Chest CT April 03, 2024. FINDINGS: There is no pneumothorax. A small left pleural effusion has slightly increased. Associated airspace opacity is similar to prior exam. Underlying emphysema. Right lung airspace opacities have p rogressed since prior CT. Cardiomediastinal silhouette is stable. IMPRESSION: 1. Progression of right lung airspace opacities suggestive of pneumonia. 2. Slight increase in a small left pleural effusion with associated subpleural opacity which favors a telectasis or post treatment change. Continued radiographic follow-up is recommended. ACT 112: Negative or not required by law. Electronically signed by: Aubrey Carballo M.D. 04/07/2024 8:40 AM
--- NOTE | 2024-04-07 08:44 | Nephrology Progress Note ---
Date of Service April 07, 2024 Assessment & Plan (1) Acute kidney injury: Plan: * Resolved following IV hydration * Patient is nonoliguric * Encourage oral hydration (2) CKD (chronic kidney disease), stage III: Plan: * CKD stage G3a/A3. Baseline Cr1.5-2.0 mg/dL. History of JAVED requiring dialysis in 2019. 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 MACR 1610 mcg/mg. Follows with Dr. De León as outpatient. (3) Hyponatremia: Plan: * Mild, asymptomatic hyponatremia * Clinically euvolemic to volume contracted * Serum Na improved to 134 today * Continue NaCl 2 g p.o. BID * Uosm > 300 c/w ADH effect * Monitor BMP (4) Metastatic lung cancer (metastasis from lung to other site): Plan: * Oncology has ordered Neupogen for correction of neutropenia * Cortisol and a TCH level has been ordered. Patient has been started on Solu- Medrol therapy. * Palliative care has met with patient and provided Ativan for management of anxiety/nausea. Admission and Anticipated Discharge Date Admission Date: March 31, 2024 Subjective Mr. Alvarez was evaluated in his hospital room this morning. He was breathing comfortably flat in bed on O2 at 3 L/minute. He is tolerating NaCl supplement without GI upset Review of Systems Constitutional: no fever Eyes: no problem reported Ear, Nose, Mouth, Throat: no problem reported Respiratory: no cough and no dyspnea Cardiovascular: no chest pain Gastrointestinal: no abdominal pain, no nausea, no vomiting and no diarrhea/loose stools Genitourinary: no dysuria or no hematuria Physical Exam Constitutional: + frail appearing; not in distress ENMT: external ear and nose normal, oropharynx normal Neck: trachea midline, no thyromegaly Respiratory: normal respiratory effort, lungs clear to auscultation Cardiovascular: RRR, no murmur, no edema Gastrointestinal (Abdomen): normal bowel sounds, soft, nontender, no hepat osplenomegaly Musculoskeletal: Extremities: no cyanosis Neurologic: awake; not confused Results & Data Vital Signs (Past 12 Hours) Vital Signs Temp Pulse Pulse Resp BP Pulse Ox O2 Del Method 04/07/24 08:00 36.6 C 94 H 20 130/61 91 Nasal Cannula 04/07/24 07:19 82 04/07/24 03:25 36.6 C 84 18 155/77 H 92 Nasal Cannula 04/06/24 23:53 86 04/06/24 23:25 36.8 C 90 18 155/68 H 91 Nasal Cannula O2 Flow Rate 04/07/24 08:00 04/07/24 07:19 04/07/24 03:25 3.0 04/06/24 23:53 04/06/24 23:25 3.0 Laboratory Results Laboratory Results - last 24 hr 04/06/24 04/06/24 04/06/24 11:21 16:31 20:19 Sodium Potassium Chloride Carbon Dioxide Anion Gap BUN Creatinine Est Cr Clr Drug Dosing eGFR BUN/Creatinine Ratio Glucose POC Glucose 162 H 196 H 181 H Calcium 04/07/24 04/07/24 07:28 07:35 Sodium 134 L Potassium 3.9 Chloride 105 Carbon Dioxide 21 Anion Gap 8 BUN 60 H Creatinine 1.72 H D Est Cr Clr Drug Dosing 38.3 eGFR 40.44 BUN/Creatinine Ratio 34.9 H Glucose 191 H POC Glucose 226 H Calcium 8.7 PG Care Time/CCT Total # of Minutes Spent Total Time Spent with Patient: Total time spent is greater than 50% in coordination of care (as documented) at patient's floor/unit and/or counseling patient: Coding Level of Care Code 76293 SUB INP/OBS CARE 3/50MIN Diagnoses Acute kidney injury N17.9 CKD (chronic kidney disease), stage III N18.3 Hyponatremia E87.1 Metastatic lung cancer (metastasis from lung to other site) C34.90
[2024-04-07] MEDS: PIPERACILLIN/TAZOBACTAM 4.5 GM/100 ML BAG IV STA (09:59)
--- NOTE | 2024-04-07 11:34 | Orthopedic Consultation ---
Date of Service April 07, 2024 Assessment & Plan (1) Osteoarthritis of left knee: Assessment: Osteoarthritis of the left knee with moderate joint effusion. Plan: I long discussion today with the patient about his left knee pathology with ample amount time for patient ask any questions stated concerns. All question concerns were answered the patient satisfaction. At this point in time, he is dealing with osteoarthritis of the left knee with a moderate joint effusion. He does not need any emergent surgical intervention at this point in time. I do feel that this joint effusion is from his chronic osteoarthritis rather than a infectious in nature 1. I did discuss with him conservative treatment options today. I did discuss about aspiration with insertion of corticosteroid into the left knee. He is hesitant at this point in time and would like to see how today goes since he is feeling little bit better with his current pain medication regimen that they have him on. I did discuss with his hospitalist team about doing an injection in his knee if he wishes and they feel that even with his current medical history that a little dose of steroids would not significantly impact him. I will reevaluate him tomorrow morning to see if he would like me to proceed with the aspiration alone or with an aspiration with the insertion of corticosteroid into his knee. He may be weightbearing as tolerated. Physical therapy/Occupational Therapy ordered. No orthopedic restrictions at this time. Will continue to monitor. History of Present Illness Reason for Consultation: . Left knee effusion/pain. Requesting Physician: . Attending Physician: Samson Marshall MD . Patient is a 78-year-old gentleman who presented to the hospital back on 31 March for generalized severe body discomfort/pain. He currently does have a significant past medical history including metastatic adenocarcinoma of the lung and is currently receiving carboplatin, paclitaxel, pembrolizumab for this. He is also currently at home taking 10 mg of oxycodone with no improvement. Starting yesterday evening, he was experiencing severe pain to the left knee in which at that point orthopedics was consulted for his left knee pain. He discussed with me that this has been an ongoing issue with his left knee prior to his admission to the hospital. They did do x-rays to his left knee which did show a moderate joint effusion as well as tricompartmental osteoarthritis. He denies any low back pain, distal extremity pain, numbness/ting, or paresthesias. Denies any other concerns today. Allergies Allergy/AdvReac Type Severity Reaction Status Date / Time adhesive Allergy Mild Silk/plastic Verified 03/23/24 09:58 adhesive tape (redness, blistering) Sulfa (Sulfonamide AdvReac Intermediate nausea & Verified 03/23/24 09:58 Antibiotics) vomiting Home Medications Medication Instructions Recorded Confirmed Type pantoprazole 40 mg tablet,delayed 40 mg PO BID 12/23/18 03/23/24 History release (Protonix) CPAP Machine #1 ea 04/22/19 03/23/24 Rx CPAP Supplies #1 ea 04/22/19 03/23/24 Rx CPAP Machine #1 ea 08/10/19 03/23/24 Rx albuterol sulfate 90 mcg/actuation 2 puffs inhalation Q6H PRN 08/10/19 03/23/24 Rx aerosol inhaler (Ventolin HFA) shortness of breath or wheezing #8.5 grams rosuvastatin 20 mg tablet (Crestor) 20 mg PO QAM 09/06/20 03/23/24 History citalopram 40 mg tablet (Celexa) 60 mg PO QAM 04/04/21 03/23/24 History aspirin 325 mg tablet 325 mg PO DAILY 07/27/21 03/23/24 History benzonatate 200 mg capsule 200 mg PO Q8H PRN cough 01/08/23 03/23/24 History insulin aspart U-100 100 unit/mL 10 unit subcut AC 01/08/23 03/23/24 History (3 mL) subcutaneous pen (Novolog FlexPen U-100 Insulin aspart) insulin degludec 100 unit/mL (3 34 unit subcut QAM diabetes 01/08/23 03/23/24 History mL) subcutaneous pen (Tresiba FlexTouch U-100 insulin) linaclotide 290 mcg capsule 290 mcg PO DAILY 01/08/23 03/23/24 History (Linzess) nitroglycerin 0.4 mg sublingual 0.4 mg sublingual Q5M PRN Chest 01/08/23 03/23/24 History tablet (Nitrostat) Pain fluticasone furoate 50 1 inh inhalation DAILY 07/30/23 03/23/24 History mcg-vilanterol 25 mcg/dose inhalation powder (Breo Ellipta) clopidogrel 75 mg tablet 75 mg PO DAILY 02/28/24 03/23/24 History gabapentin 800 mg tablet 800 mg PO TID 02/28/24 03/23/24 History ondansetron 8 mg disintegrating 8 mg PO Q8 PRN N/V 02/28/24 03/23/24 History tablet oxycodone 5 mg tablet 5 mg PO .EVERY 4-6 HRS PRN Pain 02/28/24 03/23/24 History magnesium oxide 400 mg PO DAILY #14 tabs 03/01/24 03/23/24 Rx insulin NPH isoph U-100 human 100 15 unit (0.15 mL) subcut .COMPLEX 03/23/24 03/23/24 Rx unit/mL (3 mL) subcutaneous pen #15 mL (Humulin N NPH U-100 Insulin KwikPen) Past Med/Surg History Problem List (Updated 04/07/24 @ 12:32 by Dinh Marcum PA-C) Osteoarthritis of left knee Acute pain due to injury Pain Hyponatremia Chronic post-traumatic stress disorder (PTSD) after combat Diarrhea Dyspnea and respiratory abnormalities Anxiety associated with cancer diagnosis Palliative care by specialist Diffuse pain Pneumonia (Acute) Hypoxia (Acute) Hypercalcemia Hypoglycemia (Acute) Pain in right testicle (Acute) Testicular pain, right Metastatic lung cancer (metastasis from lung to other site) Lesion of adrenal gland Anemia Vitamin D deficiency Stage 3b chronic kidney disease Constipation JAY on CPAP Neurogenic claudication due to lumbar spinal stenosis Tobacco use Hypomagnesemia Elevated troponin Hypervolemia LUQ abdominal pain (Acute) Hypoxia (Acute) Leukocytosis (Acute) Pneumonia (Acute) Vomiting (Acute) Hypertension (Acute) Acute kidney injury (Acute) Acidosis, lactic (Acute) Acute hypotension (Acute) Acute dehydration (Acute) Solitary pulmonary nodule (Chronic) Depression Chest pain Lung cancer Stroke Immediately after spinal fusion 04/2019---went into kidney failure at the same time > only deficit is sometimes he "dribbles out of the left side of his mouth" Peripheral arterial occlusive disease "total occlusion of the SFA and the left mid thigh area with reconstitution with collaterals and monophasic flow bilateral below knee area" per cardiology office visit note 03/2019 Hyperlipidemia GERD (gastroesophageal reflux disease) controlled DM type 2 (diabetes mellitus, type 2) CAD (coronary artery disease) angioplasty/KARRIE to pRCA (2014) Synergy stent (11/03/2020) after failed stress test Chronic obstructive pulmonary disease CKD (chronic kidney disease), stage III Pulmonary nodule 1 cm or greater in diameter (Chronic 08/25/20) Medical History Acute and chronic respiratory failure with hypercapnia Hyperkalemia Urinary retention Hypoxia Somnolence Arthritis Urinary problem urinary hesitancy Spinal stenosis Diabetes IDDM Sleep apnea awaiting CPAP Hypertension Carotid arterial disease "no ICA stenosis.. severe left ECA stenosis" per cardiology office visit note 03/2019 > follows with Dr. Reyes in [place] Interstitial lung disease Surgical History History of elbow surgery right History of melanoma excision History of lumbar spinal fusion L5-S1 decompression/fusion (09/17/19): Grade view 2, Glidescope#3, ETT 8.0 at [facility] Status post lumbar surgery History of arthroscopy of right shoulder History of colonoscopy History of tonsillectomy History of hernia surgery X2 History of thumb surgery R/L History of repair of left rotator cuff History of cardiac cath stent x1 (2014) Synergy stent x1 (11/03/2020) Family History Mother Diabetes Heart disease Cancer Lung cancer Father Cancer Oral cancer Other No family history of adverse response to anesthesia Social History Smoking Status: Current every day smoker Tobacco Type: Cigarettes Cigarettes Per Day: A pack; Second Hand Exposure: No; Do You Dip or Chew Tobacco: No; Tobacco Cessation Education Requested by Patient: No Hx Alcohol Use: No Hx Substance Use: No Preferred Language: Italian Communication Ability: Effective Visual Impairment: No Limitations Hearing Ability: Normal Door Fitter Required: No Beliefs That Will Affect Care: None Current Living Situation: Spouse Current Living Situation Comment: Home current occupational status: retired Other Information That Helps Us Care for You: No Feels Safe at Home: Yes Childhood Exposure to Second-Hand Smoke: Yes Diet Comment: food choices with less carbs, uses sugar substitute Assistive Devices: None Review of Systems All systems reviewed & are unremarkable except as noted in HPI & below. Physical Exam . Constitutional: WD/WN, vitals as above no acute distress Musculoskeletal: On physical examination of the left knee, the there is a notable joint effusion to the left knee with no erythema, ecchymosis, or any other obvious deformities. Tenderness to palpation diffusely throughout the knee joint. Limited range of motion and strength secondary secondary to discomfort. Calf soft nontender to palpation. Negative Homans' sign. Intact plantarflexion dorsiflexion of left ankle. +2 DP and PT pulses. Less than 2- second capillary refill. Normal sensation. Neurovascular intact. Results & Data Results & Data Laboratory Results . Diagnostic Findings . Knee X-Ray 04/06/24 11:53 XR knee LT 1 or 2V routine HISTORY: 78 years-old Male fall with knee pain COMPARISON: None TECHNIQUE: 2 views of the left knee FINDINGS: Chondrocalcinosis. Moderate medial with mild to moderate patellofemoral and mild lateral compartment osteoarthritis. Moderate size joint effusion. Arterial calcifications with mid thigh arterial graft which is partially imaged. No acute fracture or dislocation. IMPRESSION: 1. Moderate sized joint effusion without acute fracture or dislocation. 2. Tricompartmental osteoarthritis with chondrocalcinosis. ACT 112: Negative or not required by law. The above report was generated using voice recognition software. It may contain grammatical, syntax or spelling errors. Electronically signed by: Dinh Healy M.D. 04/06/2024 1:25 PM PG Care Time/CCT Total # of Minutes Spent Total Time Spent with Patient: Total time spent is greater than 50% in coordination of care (as documented) at patient's floor/unit and/or counseling patient: Coding Level of Care Code 96560 IN/OBS CONSULT LVL 3,45M Diagnoses Primary osteoarthritis of left knee M17.12 Osteoarthritis type: primary (1) Osteoarthritis of left knee Osteoarthritis type: primary Qualified Code(s): M17.12 - Unilateral primary osteoarthritis, left knee
[2024-04-07] MEDS: PIPERACILLIN/TAZOBACTAM 4.5 GM/100 ML BAG IV SCH (14:40)
[2024-04-07] MEDS ORDERED: INSULIN HUMAN NPH SC ONE (17:11)
[2024-04-07] MEDS: NovoLIN-N (NPH) PER UNIT CHARGE SQ ONE (17:51)
[2024-04-08 06:58] LABS: BUN Creatinine Ratio 29.8 (10-20); Creatinine Clr Calc Pharmacy 36.4 ml/min; Potassium 3.7 mmol/L (3.5-5.1)
--- NOTE | 2024-04-08 08:37 | Nephrology Progress Note ---
Date of Service April 08, 2024 Assessment & Plan (1) Acute kidney injury: Plan: * Resolved following IV hydration * Patient is nonoliguric * Encourage oral hydration (2) CKD (chronic kidney disease), stage III: Plan: * CKD stage G3a/A3. Baseline Cr1.5-2.0 mg/dL. History of JAVED requiring dialysis in 2019. 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 MACR 1610 mcg/mg. Follows with Dr. De León as outpatient. (3) Hyponatremia: Plan: * Hyponatremia corrected * Serum Na improved to 139 today * Continue NaCl 2 g p.o. BID * Uosm > 300 c/w ADH effect * Monitor BMP * No further nephrology evaluation indicated at this time. Will sign off. Please call if further assistance is needed (4) Metastatic lung cancer (metastasis from lung to other site): Admission and Anticipated Discharge Date Admission Date: March 31, 2024 Subjective Mr. Alvarez was evaluated in his hospital room this morning. He was breathing comfortably flat in bed on O2 at 4 L/minute. He is tolerating NaCl supplement without GI upset Review of Systems Constitutional: no fever Eyes: no problem reported Ear, Nose, Mouth, Throat: no problem reported Respiratory: no cough and no dyspnea Cardiovascular: no chest pain Gastrointestinal: no abdominal pain, no nausea, no vomiting and no diarrhea/loose stools Genitourinary: no dysuria or no hematuria Physical Exam Constitutional: + frail appearing; not in distress ENMT: external ear and nose normal, oropharynx normal Neck: trachea midline, no thyromegaly Respiratory: normal respiratory effort, lungs clear to auscultation Cardiovascular: RRR, no murmur, no edema Gastrointestinal (Abdomen): normal bowel sounds, soft, nontender, no hepatosplenomegaly Musculoskeletal: Extremities: no cyanosis Neurologic: awake; not confused Results & Data Vital Signs (Past 12 Hours) Vital Signs Temp Pulse Pulse Resp BP Pulse Ox O2 Del Method 04/08/24 07:43 36.3 C L 82 19 150/63 H 93 Nasal Cannula 04/08/24 03:43 36.3 C L 82 20 160/64 H 91 Nasal Cannula 04/07/24 23:42 36.4 C L 84 20 154/66 H 94 Nasal Cannula 04/07/24 22:19 86 04/07/24 21:00 Nasal Cannula O2 Flow Rate 04/08/24 07:43 4.0 04/08/24 03:43 4.0 04/07/24 23:42 4.0 04/07/24 22:19 04/07/24 21:00 3 Laboratory Results Laboratory Results - last 24 hr 04/07/24 04/07/24 04/07/24 11:17 16:22 16:24 Sodium Potassium Chloride Carbon Dioxide Anion Gap BUN Creatinine Est Cr Clr Drug Dosing eGFR BUN/Creatinine Ratio Glucose POC Glucose 272 H 326 H* 325 H* Calcium 04/07/24 04/07/24 04/08/24 20:58 21:01 06:03 Sodium 139 Potassium 3.7 Chloride 108 H Carbon Dioxide 24 Anion Gap 7 BUN 54 H Creatinine 1.81 H Est Cr Clr Drug Dosing 36.4 eGFR 38.04 BUN/Creatinine Ratio 29.8 H Glucose 156 H POC Glucose 317 H* 286 H Calcium 9.0 04/08/24 07:40 Sodium Potassium Chloride Carbon Dioxide Anion Gap BUN Creatinine Est Cr Clr Drug Dosing eGFR BUN/Creatinine Ratio Glucose POC Glucose 195 H Calcium PG Care Time/CCT Total # of Minutes Spent Total Time Spent with Patient: Total time spent is greater than 50% in coordination of care (as documented) at patient's floor/unit and/or counseling patient: Coding Level of Care Code 14030 SUB INP/OBS CARE 3/50MIN Diagnoses Acute kidney injury N17.9 CKD (chronic kidney disease), stage III N18.3 Hyponatremia E87.1 Metastatic lung cancer (metastasis from lung to other site) C34.90
--- NOTE | 2024-04-08 12:04 | Orthopedic Progress Note ---
Date of Service April 08, 2024 Assessment & Plan (1) Osteoarthritis of left knee: Assessment: Osteoarthritis of the left knee with joint effusion. Plan: Overall, he is doing well today with good pain control to his left knee. He is not interested in any aspiration or injection at this point in time. I di d discuss that if at any point during his hospital course if he changes his mind to let the staff know to reach out to us. He may follow-up with orthopedics on the outpatient side for his left knee. During his stay, I do recommend that he continues working with physical therapy to continue working on range of motion and strength to the left lower extremity. Continue with the rest, ice, and elev ation procedures. Continue current pain medication regimen. Medical management per primary. At this point in time, orthopedic is going to sign off on this patient. Please reach out to [facility] if the patient situation is to change or if he wishes to proceed with an aspiration and/or injection into the left knee. Subjective . Patient is a 78-year-old gentleman who we are asked to see on consultation for left knee effusion and severe pain. He notes that his knee is feeling great today. He is not having any concerns with the knee at this point. He has been able to work with therapy and notes some improvement of any issues. He denies any other concerns today. Review of Systems All systems reviewed & are unremarkable except as noted in HPI & below. Physical Exam . Constitutional: WD/WN, vitals as above no acute distress Musculoskeletal: On physical examination of the left knee, the there is a notable joint effusion to the left knee with no erythema, ecchymosis, or any other obvious deformities. Tenderness to palpation diffusely throughout the knee joint. Limited range of motion and strength secondary secondary to discomfort. Calf soft nontender to palpation. Negative Homans' sign. Intact plantarflexion dorsiflexion of left ankle. +2 DP and PT pulses. Less than 2- second capillary refill. Normal sensation. Neurovascular intact. Results & Data Results & Data Laboratory Results . Diagnostic Findings . PG Care Time/CCT Total # of Minutes Spent Total Time Spent with Patient: Total time spent is greater than 50% in coordination of care (as documented) at patient's floor/unit and/or counseling patient: Coding Level of Care Code 08523 SUB INP/OBS CARE 03/21MIN Diagnoses Primary osteoarthritis of left knee M17.12 Osteoarthritis type: primary (1) Osteoarthritis of left knee Osteoarthritis type: primary Qualified Code(s): M17.12 - Unilateral primary osteoarthritis, left knee
--- NOTE | 2024-04-08 13:02 | Hospitalist Progress Note ---
Date of Service April 08, 2024 Assessment & Plan (1) Diffuse pain: Plan: (2) Metastatic lung cancer (metastasis from lung to other site): (3) DM type 2 (diabetes mellitus, type 2): Plan 78yo male with history of metastatic adenocarcinoma of the lung currently on chemotherapy with Carboplatin, Paclitaxel and Pembrolizumab presenting with diffuse body pain, persistent despite PO Oxycodone taken at home. Patient has experienced similar pain in the past - thought likely due to his chemotherapy treatment. opiate induced constipation. 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 Baseline history of COPD on home inhalers and cpap at night added IV corticosteroids x 2 days., Chest x-ray concern for HAP did reinstitute Zosyn 04/07/24 Still with requirement for oxygen supplementation due to acute respiratory failure with hypoxia prednisone 90 mg in AM.( high dose with concern for pneumonitis) Ct chest ordered 04/07 Due to anemia: recommended transfusion, patient refused, hemoglobin is remain low but stable. New onset atrial fibrillation rvr, now sinus rhythm diverts discussion for anticoagulation long-term Started patient on amiodarone drip, transition to po 04/06 Diabetes Chronic. Last [id number]=[id number] on 01/21/24. Patient with variable blood sugars - He has been seen by [facility] for this issue on 03/23/24. -Lantus 12u BID with ISS needed additional nph and adjustment of ssi on 04/07 -Docusate/Senna and Miralax available for bowel management pain appears better controlled. will continue above meds. una with Chronic kidney disease stage 3b Improved with gentle hydration Hyperlipidemia -Continue Crestor 20mg po daily GERD -Continue Protonix 40mg po BID Depression -Continue Citalopram 60mg po qAM Ppx - Lovenox 40u Code - Full per discussion with patient and reconfirmed on 04/07/2023 Admission and Anticipated Discharge Date Admission Date: March 31, 2024 Subjective pt states he feels short of breath, he has a Non productive cough, he has still required oxygen supplementation and he usualy does not have this at baseline still desires to go home, therapy recommends rehab Physical Exam Physical Exam: cardiac exam with murmur, regular(recent afib RVR) lungs diminished at bases, overall increased rhonchi, wheezes ext , left knee with ecchymosis and effusion, no particularly tender spots, no joint instability Results & Data Results & Data Vital Signs (Past 12 Hours) Vital Signs Temp Pulse Pulse Resp BP Pulse Ox O2 Del Method 04/08/24 11:24 97.3 F L 83 19 158/67 H 93 Nasal Cannula 04/08/24 09:00 Nasal Cannula 04/08/24 08:00 77 04/08/24 07:43 97.3 F L 82 19 150/63 H 93 Nasal Cannula 04/08/24 03:43 97.3 F L 82 20 160/64 H 91 Nasal Cannula O2 Flow Rate 04/08/24 11:24 4.0 04/08/24 09:00 3 04/08/24 08:00 04/08/24 07:43 4.0 04/08/24 03:43 4.0 Laboratory Results review chemistry review poc glucose after adjusting insulin PG Care Time/CCT Total # of Minutes Spent Total Time Spent with Patient: Total time spent is greater than 50% in coordination of care (as documented) at patient's floor/unit and/or counseling patient: Coding Level of Care Code 68045 SUB INP/OBS CARE 2/35MIN Diagnoses Diffuse pain R52 Metastatic lung cancer (metastasis from lung to other site) C34.90 DM type 2 (diabetes mellitus, type 2) E11.9
--- NOTE | 2024-04-08 14:24 | CT Scan Report ---
CT chest diagnostic wo con CT DOSE: 722.59 mGy.cm CLINICAL HISTORY: 78 years-old Male with lung cancer, concern for HAP or progession of CA. Follow-up study patient with history of lung cancer TECHNIQUE: Multiaxial CT images of the chest were performed without contrast. A dose lowering techni que was utilized adhering to the principles of ALARA. COMPARISON: Chest radiograph 04/07/2024, chest CT to April 03, 2024, Chest CT February 29, 2024. CT of the abdomen and pelvis March 31, 2024. Chest radiograph April 02, 2024. FINDINGS: The heart is mildly enlarged. There is moderate coronary artery and aortic valvular calcifi cation. There is no pericardial effusion. Calcified mediastinal and right hilar lymph nodes are uncha nged. As previously described, the prominent mediastinal lymph nodes are similar to CT of February 29, 2024. A prevascular lymph node on image 103 measures 1.2 x 0.8 cm. A small left pleural effusion is redemonstrated and appears to be mildly decreased in size from the study. Left-sided pleural thickening is unchanged. No right pleural effusion. There is no pne umothorax. Band-like left upper lobe opacity and subpleural left lower lobe opacity are similar to CT of February 29, 2024. Central airways are patent. Interlobular septal thickening has progressed from t he 04/03/2024 exam. Moderate pulmonary emphysema with bronchial wall thickening. Interval progression o f the patchy bilateral ground glass densities with mild nodular right midlung consolidation and scatt ered reticulonodular opacities. Multiple subacute to chronic left-sided rib fractures are again noted. There are no acute fractures w ithin the thorax. Small hiatal hernia with distal esophageal wall thickening. No acute upper abdomina l abnormality. IMPRESSION: 1. Progressive multifocal pneumonia compared to the 04/03/2024 study. 2. Cardiomegaly with mild interstitial pulmonary edema. 3. Left-sided pleural thickening redemonstrated along with a small left pleural effusion which which has slightly decreased in size from the 04/03/2024 exam. This remains indeterminate and may be treatmen t-related however imaging follow-up to ensure resolution/stability is recommended. 4. Band-like left upper lobe opacity and subpleural left lower lobe opacity, unchanged since prior est CT and again favors posttreatment change. Attention on follow-up recommended. 5. Unchanged mild lymphadenopathy. ACT 112: Negative or not required by law. Electronically signed by: Dinh Healy M.D. 04/08/2024 2:22 PM
[2024-04-09] MEDS: oxyCODONE HCL IR 5 MG TAB (IMMEDIATE RELEASE) PO PRN (08:26)
--- NOTE | 2024-04-09 12:01 | Hospitalist Progress Note ---
Date of Service April 09, 2024 Assessment & Plan (1) Diffuse pain: Plan: (2) Metastatic lung cancer (metastasis from lung to other site): (3) DM type 2 (diabetes mellitus, type 2): Plan 78yo male with history of metastatic adenocarcinoma of the lung currently on chemotherapy with Carboplatin, Paclitaxel and Pembrolizumab presenting with diffuse body pain, persistent despite PO Oxycodone taken at home. Patient has experienced similar pain in the past - thought likely due to his chemotherapy treatment. opiate induced constipation. 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 New onset atrial fibrillation rvr, now sinus rhythm diverts discussion for anticoagulation long-term Started patient on amiodarone drip, transition to po 04/06 Diabetes Chronic. Last [id number]=9.9 on 01/21/24. Patient with variable blood sugars - He has been seen by [facility] for this issue on 03/23/24. -Lantus 12u BID with ISS needed additional nph and adjustment of ssi on 04/07 -Docusate/Senna and Miralax available for bowel management pain appears better controlled. will continue above meds. una with Chronic kidney disease stage 3b Improved with gentle hydration Hyperlipidemia -Continue Crestor 20mg po daily GERD -Continue Protonix 40mg po BID Depression -Continue Citalopram 60mg po qAM Constipation on Miralax Ppx - Lovenox 40u Code - Full per discussion with patient and reconfirmed on 04/07/2023 Admission and Anticipated Discharge Date Admission Date: March 31, 2024 Subjective patient seen and examined, still short of breath Review of Systems Review of Systems: All systems reviewed are negative, apart from the ones contained in the history. Physical Exam Physical Exam: The patient is awake, alert and oriented 3, well developed and well nourished, normocephalic and atraumatic, lying in bed and in no acute distress. HEENT--PERRL, EOMI, mucous membranes and oropharynx mildly dry Neck--supple. No JVD. No bruits. Thyroid normal, trachea midline, no adeno caridad. Heart--normal S1 and S2. No murmurs, rubs or gallops. Lungs--reduce air entry, crackles Abdomen--normal bowel sounds and soft. Extremities--no cyanosis or clubbing. No edema. Dermatologic--normal skin turgor, normal color, no abnormal lymph nodes, no rash. Neurologic--cranial nerves II through XII grossly intact. Rheumatologic--normal range of motion. Psychiatric--normal affect. Results & Data Results & Data Vital Signs (Past 12 Hours) Vital Signs Temp Pulse Pulse Resp BP Pulse Ox O2 Del Method 04/09/24 11:44 97.3 F L 75 18 157/73 H 91 Nasal Cannula 04/09/24 08:05 97.3 F L 80 18 174/68 H 90 Nasal Cannula 04/09/24 08:00 77 04/09/24 03:23 97.3 F L 78 18 181/75 H 93 Nasal Cannula O2 Flow Rate 04/09/24 11:44 4 04/09/24 08:05 4 04/09/24 08:00 04/09/24 03:23 4.0 PG Care Time/CCT Total # of Minutes Spent Total Time Spent with Patient: Total time spent is greater than 50% in coordination of care (as documented) at patient's floor/unit and/or counseling patient: Coding Level of Care Code 39681 SUB INP/OBS CARE 2/35MIN Diagnoses Diffuse pain R52 Metastatic lung cancer (metastasis from lung to other site) C34.90 DM type 2 (diabetes mellitus, type 2) E11.9 Time Spent (min) 35
[2024-04-09] MEDS: NICOTINE 21 MG/24 HR TDSY TD SCH (17:41)
--- NOTE | 2024-04-10 01:29 | Palliative Care Progress Note ---
Date of Service April 09, 2024 Assessment & Plan (1) Palliative care by specialist: Plan: Palliative care continuing to follow for pain mgmt, Goals of care are clearly established to continue all other life prolonging therapies (2) Acute pain due to injury: Plan: Pt shared that his knee pain is well controlled and wishes to continue with current pain medications. He shard that he is considering having the fluid on his knee drained but unclear if he wishes to pursue. PLAN Continue oxycodone IR to 10mg PO q4h PRN for mild-mod pain Continue oxycodone IR to 15mg PO q4h PRN for severe pain please use IV morphine ONLY if pt not able to take PO (3) Anxiety associated with cancer diagnosis: Plan: Pt shared that he is getting better sleep and ativan is helping with anxiety. He requests no changes at this time. Plan see above Plan discussed with attending, pt, and BSRN. Encouraged BSRN to optimize pain/anxiety management with PRN PO medications. Admission and Anticipated Discharge Date Admission Date: March 31, 2024 Subjective Pt awake and in good spirits today. He shared that his knee pain is well controlled today and denies any other complaint. No visitors. Review of Systems Review of Systems: All systems reviewed & are unremarkable except as noted in Subjective Physical Exam Physical Exam: Pt lying in bed, tachypneic and moaning in pain. Constitutional: well developed, + obese and + in distress; + uncomfortable pt in distress 2/2 knee pain Eyes: PERRL, conjunctivae normal, anicteric sclerae ENMT: external ear and nose normal, oropharynx normal Neck: trachea midline, no thyromegaly Respiratory: normal respiratory effort, able to speak in complete sentences and + tachypneic; no respiratory distress Cardiovascular: RRR, no murmur, no edema Gastrointestinal (Abdomen): normal bowel sounds, soft, nontender, no hepatosplenomegaly Musculoskeletal: no cyanosis or clubbing, extremities motor strength 5/5 Skin: normal turgor; no jaundice pale, warm and dry Neurologic: PERRL, EOMI, accommodation nl, no face palsy, no dysarthria Results & Data Vital Signs (Past 12 Hours) Vital Signs Temp Pulse Pulse Resp BP Pulse Ox O2 Del Method 04/09/24 23:24 36.6 C 79 18 181/69 H 93 Nasal Cannula 04/09/24 19:55 36.4 C L 79 18 184/73 H 96 Nasal Cannula 04/09/24 16:29 77 04/09/24 15:11 36.4 C L 84 18 170/72 H 95 Nasal Cannula O2 Flow Rate 04/09/24 23:24 4.0 04/09/24 19:55 4.0 04/09/24 16:29 04/09/24 15:11 Laboratory Results Abnormal lab results 04/09/24 04/09/24 04/09/24 Range/Units 07:39 08:23 11:24 POC Glucose 203 H 223 H 194 H (70-99) mg/dl 04/09/24 04/09/24 Range/Units 16:07 20:33 POC Glucose 251 H 260 H (70-99) mg/dl Diagnostic Findings Abdomen/Pelvis CT 03/31/24 17:07 EXAMINATION: CT of the abdomen and pelvis performed without contrast TECHNIQUE: Helical CT images from the lung bases through the symphysis pubis were obtained without contrast. Coronal and sagittal reformatted images were generated at a workstation for further assessment. Dose reduction techniques were achieved by using automatic exposure control and/or adjustment of mA and/or kV according to patient size and/or use of iterative reconstruction technique. COMPARISON: None HISTORY: Trauma FINDINGS: Lower chest: There is a small left basilar pleural effusion seen. Mild scattered areas of patchy groundglass and small nodular opacity throughout the lung bases in the right middle lobe. Liver: No suspicious liver lesions. Gallbladder: Punctate gallstone seen at the neck. No evidence of acute cholecystitis. Spleen: Normal size. Pancreas: No suspicious pancreatic lesions. The pancreatic duct is not dilated. Adrenal glands: No adrenal nodules. Kidneys: No hydronephrosis or obstructing renal stones. There is an 8 mm lesion at the inferior pole of the left kidney which is high in attenuation, most consistent with a hemorrhagic/proteinaceous cyst. Otherwise no additional visualized masses seen on this noncontrast CT. Bladder / Pelvic organs: Unremarkable. Bowel: No bowel obstruction. No abnormal bowel wall thickening. The appendix is unremarkable. Left colonic diverticulosis without evidence for diverticulitis. There is a large colonic stool burden. Lymph nodes: No retroperitoneal, mesenteric, or pelvic lymphadenopathy. Peritoneum / Retroperitoneum: No free fluid or air within the abdomen. Vessels: No infrarenal aortic aneurysm. Heavy aortoiliac calcification. Bones and soft tissues: No suspicious lesion in the bones. L5-S1 fixation changes. Small fat-containing inguinal hernias. IMPRESSION: No evidence for an acute traumatic abnormality of the abdomen or pelvis. Patchy groundglass and nodular densities in the right middle lobe and lower lungs, appear infectious. There is a small left pleural effusion. Electronically signed by Carlo Pierson 03-31-2024 7:[address] 03/31/24 17:16 CT cervical spine without IV contrast History: Trauma Comparison: None Technique: Using multidetector thin collimation helical acquisition technique, axial, coronal and sagittal CT images through the cervical spine were obtained without intravenous contrast. Dose reduction techniques were achieved by using automatic exposure control and/or adjustment of mA and/or kV according to patient size and/or use of iterative reconstruction technique. Findings: The cervical vertebrae are normally aligned. Straightened cervical lordosis. No acute fracture or subluxation. No prevertebral edema. Mild multilevel discogenic and facet degenerative changes. There is moderate atlantodental degenerative change. No abnormality of the paraspinous soft tissues. The lungs appear emphysematous. A left pleural effusion is partially seen. Impression: No acute fracture or traumatic subluxation. A left pleural effusion is partially seen at the left lung apex. Electronically signed by Carlo Pierson 03-31-2024 7:[address] 04/03/24 06:50 EXAM: CT head/brain wo con CLINICAL HISTORY: Fall. TECHNIQUE: Axial non-contrast CT scan of the brain was performed from the skull base to the high parietal region with coronal and sagittal reformats. One of the following dose reduction techniques were utilized for this exam: Automated exposure control, adjustment of the mA and/or kV according to patient size, use of iterative reconstruction. CTDI: 37.7mGy, DLP: 547.75mGy*cm. COMPARISON: None. FINDINGS: Accentuated bilateral cerebral periventricular white matter hypodensities denoting hypoperfusion with bilateral fronto-parietal periventricular and subcortical hypodense foci are noted. The grey white mater differentiation is preserved. Normal CT appearance of the posterior fossa structures. No intracerebral or extra axial hematoma. Dilated ventricular system, cortical sulci and extra-axial CSF spaces. No midline shifts or deformity. No definite calvarial fractures. The osseous structures in the skull base are unremarkable. The scanned paranasal sinuses are unremarkable IMPRESSION: 1. No skull fractures. 2. No intra or extra-axial hemorrhage. 3. No parenchymal territorial hypodense areas suggestive of acute ischemic insult. 4. Microvascular ischemic changes with age matches mild brain involutional changes. Electronically signed by Keiko Feng 04-03-2024 08:17 AM KUB X-Ray 04/05/24 08:54 KUB HISTORY: Acute onset abdominal pain with constipation constipation COMPARISON: CT abdomen and pelvis 03/31/2024 FINDINGS: Moderate fecal retention. Nonobstructive bowel gas pattern. Bibasilar densities are again noted. Iliac stent grafts. Lumbar spinal fusion hardware. No renal calculi. No ureteral calculi. No pneumoperitoneum or pneumatosis. No fracture. IMPRESSION: Nonobstructive bowel gas pattern with moderate colonic fecal retention. ACT 112: Negative or not required by law. The above report was generated using voice recognition software. It may contain grammatical, syntax or spelling errors. Electronically signed by: Dinh Healy M.D. 04/05/2024 9:39 AM Brain MRI 04/05/24 14:36 EXAM: MR brain wo con CLINICAL HISTORY: Right hand weakness TECHNIQUE: MRI of the brain was performed without IV contrast with multiplanar sequences obtained. COMPARISON: Prior CT brain dated 04/03/2024 was reviewed. FINDINGS: Brain Parenchyma: No evidence of acute infarction or hemorrhage. Normal grey-white matter differentiation. No mass lesions identified. Bilateral deep white matter periventricular sheets and small adjacent foci of bright T2 and FLAIR signal with no related edema or mass effect denoting chronic deep white matter ischemia. Ventricles and Sulci: Mild bilateral symmetrical dilatation of the supra-tentorial ventricular system with no midline shift with widened cortical sulci and extraaxial CSF spaces (age matched involutional changes). No evidence of hydrocephalus. Posterior Fossa: Cerebellum appears normal without evidence of mass lesions or signal abnormalities. A 4 x 2 mm focal area of CSF signal is involving the right midbrain aspect, representing old lacunar infarct. Cranial Nerves: Normal course and appearance of cranial nerves identified. Vessels: No evidence of vascular malformations or aneurysms. Intracranial arteries and veins appear normal without evidence of stenosis or occlusion. Orbits and Skull Base: Orbits and skull base structures are normal without evidence of abnormalities. IMPRESSION: 1. No acute intracranial abnormality identified. 2. Chronic deep white matter ischemia 3. 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 4. Age matched involutional brain changes. 5. Findings are matched with prior CT brain. Electronically signed by Keiko Feng 04-05-2024 9:18 PM Knee X-Ray 04/06/24 11:53 XR knee LT 1 or 2V routine HISTORY: 78 years-old Male fall with knee pain COMPARISON: None TECHNIQUE: 2 views of the left knee FINDINGS: Chondrocalcinosis. Moderate medial with mild to moderate patellofemoral and mild lateral compartment osteoarthritis. Moderate size joint effusion. Arterial calcifications with mid thigh arterial graft which is partially imaged. No acute fracture or dislocation. IMPRESSION: 1. Moderate sized joint effusion without acute fracture or dislocation. 2. Tricompartmental osteoarthritis with chondrocalcinosis. ACT 112: Negative or not required by law. The above report was generated using voice recognition software. It may contain grammatical, syntax or spelling errors. Electronically signed by: Dinh Healy M.D. 04/06/2024 1:25 PM Chest X-Ray 04/07/24 07:55 XR chest 1V portable CLINICAL HISTORY: eval for worsening pneumonia COMPARISON STUDY: Chest radiograph April 05, 2024. Chest CT February 29, 2024. Chest CT April 03, 2024. FINDINGS: There is no pneumothorax. A small left pleural effusion has slightly increased. Associated airspace opacity is similar to prior exam. Underlying emphysema. Right lung airspace opacities have progressed since prior CT. Cardiomediastinal silhouette is stable. IMPRESSION: 1. Progression of right lung airspace opacities suggestive of pneumonia. 2. Slight increase in a small left pleural effusion with associated subpleural opacity which favors atelectasis or post treatment change. Continued radiographic follow-up is recommended. ACT 112: Negative or not required by law. Electronically signed by: Aubrey Carballo M.D. 04/07/2024 8:[address] 04/08/24 12:30 CT chest diagnostic wo con CT DOSE: 722.59 mGy.cm CLINICAL HISTORY: 78 years-old Male with lung cancer, concern for HAP or progession of CA. Follow-up study patient with history of lung cancer TECHNIQUE: Multiaxial CT images of the chest were performed without contrast. A dose lowering technique was utilized adhering to the principles of ALARA. COMPARISON: Chest radiograph 04/07/2024, chest CT to April 03, 2024, Chest CT February 29, 2024. CT of the abdomen and pelvis March 31, 2024. Chest radiograph April 02, 2024. FINDINGS: The heart is mildly enlarged. There is moderate coronary artery and aortic valvular calcification. There is no pericardial effusion. Calcified mediastinal and right hilar lymph nodes are unchanged. As previously described, the prominent mediastinal lymph nodes are similar to CT of February 29, 2024. A prevascular lymph node on image 103 measures 1.2 x 0.8 cm. A small left pleural effusion is redemonstrated and appears to be mildly decreased in size from the 04/03/2024 study. Left-sided pleural thickening is unchanged. No right pleural effusion. There is no pneumothorax. Band-like left upper lobe opacity and subpleural left lower lobe opacity are similar to CT of February 29, 2024. Central airways are patent. Interlobular septal thickening has progressed from the 04/03/2024 exam. Moderate pulmonary emphysema with bronchial wall thickening. Interval progression of the patchy bilateral ground glass densities with mild nodular right midlung consolidation and scattered reticulonodular opacities. Multiple subacute to chronic left-sided rib fractures are again noted. There are no acute fractures within the thorax. Small hiatal hernia with distal esophageal wall thickening. No acute upper abdominal abnormality. IMPRESSION: 1. Progressive multifocal pneumonia compared to the 04/03/2024 study. 2. Cardiomegaly with mild interstitial pulmonary edema. 3. Left-sided pleural thickening redemonstrated along with a small left pleural effusion which which has slightly decreased in size from the 04/03/2024 exam. This remains indeterminate and may be treatment-related however imaging follow-up to ensure resolution/stability is recommended. 4. Band-like left upper lobe opacity and subpleural left lower lobe opacity, unchanged since prior chest CT and again favors posttreatment change. Attention on follow-up recommended. 5. Unchanged mild lymphadenopathy. ACT 112: Negative or not required by law. Electronically signed by: Dinh Healy M.D. 04/08/2024 2:22 PM Medications Administered Current Inpatient Medications Acetaminophen (Acetaminophen 325 Mg Tab) 650 mg PO Q4H PRN PRN Reason: Pain or Fever Stop: 04/30/24 22:01 Last Admin: 04/09/24 08:38 Dose: 650 mg Albuterol (Albuterol Hfa 8 Gm Inhaler) 2 puffs INH Q6H PRN PRN Reason: shortness of breath or wheezing Stop: 05/01/24 01:20 Amiodarone HCl (Amiodarone 200 Mg Tab) 400 mg PO BIDM [facility] Stop: 05/06/24 07:59 Last Admin: 04/09/24 17:44 Dose: 400 mg Aspirin (Aspirin 81 Mg Ectab) 81 mg PO QAM [facility] Stop: 05/03/24 08:59 Last Admin: 04/09/24 08:29 Dose: 81 mg Benzonatate (Benzonatate 100 Mg Capsule) 200 mg PO Q8H PRN PRN Reason: cough Stop: 05/01/24 01:20 Bisacodyl (Bisacodyl 10 Mg Supp) 10 mg KS DAILY PRN PRN Reason: Constipation Stop: 04/30/24 22:01 Calcium Carbonate (Calcium Carbonate 500 Mg Chewable Tab) 1,500 mg PO Q4H PRN PRN Reason: Indigestion Stop: 05/04/24 06:12 Last Admin: 04/04/24 06:22 Dose: 1,500 mg Clopidogrel Bisulfate (Clopidogrel Bisulfate 75 Mg Tab) 75 mg PO DAILY [facility] Stop: 05/01/24 08:59 Last Admin: 04/09/24 08:30 Dose: 75 mg Dextrose (Dextrose 50% 50 Ml Syringe) 25 - 50 ml IV UD PRN; Protocol PRN Reason: Hypoglycemia Protocol Stop: 04/30/24 22:01 Last Admin: 04/01/24 07:00 Dose: 50 ml Diclofenac Sodium (Diclofenac Sod 1% Gel 100 Gm Tube) 2 gm EXT BID [facility]; Protocol Stop: 05/02/24 08:59 Last Admin: 04/09/24 19:27 Dose: 2 gm Enoxaparin Sodium (Enoxaparin Inj 40 Mg/0.4 Ml Syr) 40 mg SQ HS [facility] Stop: 04/30/24 22:29 Last Admin: 04/09/24 19:40 Dose: Not Given Fluticasone/Vilanterol (Fluticasone/Vilanterol 100/25mcg 14 Puffs/Inhaler) 1 puffs INH DAILY [facility] Stop: 05/01/24 08:59 Last Admin: 04/09/24 08:34 Dose: 1 puffs Gabapentin (Gabapentin 800 Mg Tab) 800 mg PO TID [facility] Stop: 05/01/24 08:59 Last Admin: 04/09/24 20:48 Dose: 800 mg Glucagon (Glucagon For Inj 1 Mg Vial) 1 mg SQ UD PRN; Protocol PRN Reason: Hypoglycemia Protocol Stop: 04/30/24 22:01 Glucose (Glucose 40% Gel 15 Gm Tube) 15 - 30 gm PO UD PRN; Protocol PRN Reason: Hypoglycemia Protocol Stop: 04/30/24 22:01 Glucose (Glucose 10 Tab/Tube) 4 - 8 tab PO UD PRN; Protocol PRN Reason: Hypoglycemia Protocol Stop: 04/30/24 22:01 Piperacillin Sod/Tazobactam Sod (Zosyn) 4.5 gm in 100 mls @ 25 mls/hr IV Q8H MONI; Protocol Stop: 04/14/24 14:29 Last Infusion: 04/09/24 20:42 Dose: Infused Insulin Aspart (Insulin Aspart Per Unit Charge) 0 units SC ACHS [facility] Stop: 04/30/24 22:01 Last Admin: 04/09/24 20:46 Dose: 4 units Insulin Glargine (Lantus Per Unit Charge) 6 units SQ BID [facility] Stop: 05/02/24 08:59 Last Admin: 04/09/24 20:47 Dose: 6 units Linaclotide (Linaclotide 145 Mcg Capsule) 145 mcg PO DAILY [facility] Stop: 05/01/24 08:59 Last Admin: 04/09/24 08:30 Dose: 145 mcg Loperamide HCl (Loperamide Hcl 2 Mg Cap) 2 mg PO DAILY PRN PRN Reason: Diarrhea Stop: 05/03/24 06:50 Last Admin: 04/03/24 13:18 Dose: 2 mg Lorazepam (Lorazepam 0.5 Mg Tab) 0.5 mg PO HS PRN PRN Reason: Anxiety,insomnia Stop: 05/03/24 15:22 Last Admin: 04/09/24 19:21 Dose: 0.5 mg Lorazepam (Lorazepam 0.5 Mg Tab) 0.25 mg PO Q6H PRN PRN Reason: Anxiety,nausea Stop: 05/03/24 15:23 Last Admin: 04/06/24 10:51 Dose: 0.25 mg Miscellaneous (Carbohydrates For Hypoglycemia ) 15 - 30 gm PO UD PRN PRN Reason: Hypoglycemia Protocol Stop: 04/30/24 22:01 Last Admin: 04/01/24 06:34 Dose: 30 gm Miscellaneous (Remove Nicoderm Patch) 1 each N/A DAILY@0859 [facility] Stop: 05/10/24 08:58 Morphine Sulfate (Morphine Sulfate 4 Mg/Ml 1 Ml Carp\Vial) 2 mg IV Q3H PRN PRN Reason: Pain (6,7,8,9,10) Stop: 04/14/24 22:01 Last Admin: 04/06/24 07:50 Dose: 2 mg Naloxone HCl (Naloxone Hcl 0.4 Mg/1 Ml Vial/Carp) 0.1 mg IV Q5M PRN PRN Reason: Oversedation/Resp Depression Stop: 05/01/24 01:11 Nicotine (Nicotine 21 Mg/24 Hr Tdsy) 1 patch TD QAM [facility] Stop: 05/09/24 17:29 Last Admin: 04/09/24 17:41 Dose: 1 patch Ondansetron HCl (Ondansetron Inj 2 Mg/Ml 2 Ml Vial) 4 mg IV Q6H PRN PRN Reason: Nausea And Vomiting Stop: 04/30/24 22:01 Last Admin: 04/04/24 07:28 Dose: 4 mg Oxycodone HCl (Oxycodone Hcl Ir 5 Mg Tab (Immediate Release)) 15 mg PO Q4H PRN PRN Reason: Mild Pain (Scale 1, 2, 3) Stop: 04/15/24 01:20 Oxycodone HCl (Oxycodone Hcl Ir 5 Mg Tab (Immediate Release)) 10 mg PO Q4H PRN PRN Reason: Moderate Pain 4-6/10 Stop: 04/20/24 07:38 Last Admin: 04/09/24 19:22 Dose: 10 mg Pantoprazole Sodium (Pantoprazole 40 Mg Tab) 40 mg PO BID [facility] Stop: 05/01/24 08:59 Last Admin: 04/09/24 20:48 Dose: 40 mg Polyethylene Glycol (Polyethylene (Miralax) 17 Gm Pack) 17 gm PO DAILY PRN PRN Reason: Constipation Stop: 04/30/24 22:01 Prednisone (Prednisone 20 Mg Tab) 90 mg PO DAILY [facility] Stop: 05/06/24 08:59 Last Admin: 04/09/24 08:30 Dose: 90 mg Rosuvastatin Calcium (Rosuvastatin Calcium 20 Mg Tab) 20 mg PO QAM [facility] Stop: 05/01/24 08:59 Last Admin: 04/09/24 08:29 Dose: 20 mg Senna/Docusate Sodium (Docusate Sodium/Senna 50/8.6mg Tab) 1 tab PO QAM [facility] Stop: 05/01/24 08:59 Last Admin: 04/09/24 12:30 Dose: 1 tab Sodium Chloride (Sodium Chlor 7% 4 Ml Neb) 4 ml NEB BIDR PRN PRN Reason: sputum induction Stop: 05/02/24 18:59 Sodium Chloride (Sodium Chloride 1 Gm Tablet) 2 gm PO BID [facility] Stop: 05/06/24 20:59 Last Admin: 04/09/24 20:48 Dose: 2 gm PG Care Time/CCT Total # of Minutes Spent Total Time Spent with Patient: Total time spent is greater than 50% in coordination of care (as documented) at patient's floor/unit and/or counseling patient: Coding [place] [address] SUB INP/OBS CARE 03/21MIN Patient Type Established History Problem Focused Exam Problem Focused Medical Decision Making Low Complexity Diagnoses Palliative care by specialist Z51.5 Acute pain due to injury G89.11 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; C80.1
[2024-04-10 06:12] LABS: Hematocrit (blood only) 24.2 % (42.0-52.0); Hemoglobin 8.2 g/dl (14.0-18.0); Mean Corpuscular Hemoglobin 32.3 pg (25.0-34.0); Mean Corpuscular Hgb Conc 33.9 g/dL (32.0-36.0); Mean Corpuscular Volume 95.3 fL (80.0-100.0); Mean Platelet Volume 11.1 fL (9.4-12.4); Nucleated RBC # (auto) 0.03 K/uL (0.00-0.12); Nucleated RBC % (auto) 0.2 %; Platelet Count 116 K/uL (130-400); RDW Coefficient of Variation 17.2 % (11.5-14.5); RDW Standard Deviation 59.3 fL (36.4-46.3); Red Blood Count 2.54 M/uL (4.70-6.10); White Blood Count 16.01 K/ul (4.8-10.8)
[2024-04-10 06:23] LABS: BUN Creatinine Ratio 26.7 (10-20); Calcium 8.7 mg/dl (8.6-10.3); Creatinine Clr Calc Pharmacy 43.9 ml/min; Potassium 3.1 mmol/L (3.5-5.1)
[2024-04-10] MEDS: POTASSIUM CHLORIDE CRTAB 20 MEQ TABCR PO STA (08:44)
[2024-04-10 08:54] LABS: C Reactive Protein 12.98 mg/dl (0-0.5)
--- NOTE | 2024-04-10 09:46 | Infectious Disease Consult ---
Date of Consultation April 10, 2024 Consultation Information Consultation was provided via telemedicine using two-way real-time interactive telecommunication between the patient and the telemedicine provider. For the duration of the visit, the provider was performing the assessment from a different facility than the patient. This includesuse of bluetooth stethoscope forauscultationperformed by the telepresenter that the telemedicine provider can hear if described in the physical exam. Wheel Adjuster contact information: Please call [facility] . (Phone Number For Physician Use Only) After establishing a telemedicine visit, patient was: Patient was verified with two unique identifiers, Patient/authorized rep acknowledged consent and understanding and Gave permission to continue telehealth session Time Spent with Patient: Initial => 40 min History of Present Illness Reason for Consultation: Worsening pneumonia Attending Physician: Melina Escalante MD Allergies Allergy/AdvReac Type Severity Reaction Status Date / Time adhesive Allergy Mild Silk/plastic Verified 03/23/24 09:58 adhesive tape (redness, blistering) Sulfa (Sulfonamide AdvReac Intermediate nausea & Verified 03/23/24 09:58 Antibiotics) vomiting Home Medications Medication Instructions Recorded Confirmed Type pantoprazole 40 mg tablet,delayed 40 mg PO BID 12/23/18 03/23/24 History release (Protonix) CPAP Machine #1 ea 04/22/19 03/23/24 Rx CPAP Supplies #1 04/22/19 03/23/24 Rx CPAP Machine #1 ea 08/10/19 03/23/24 Rx albuterol sulfate 90 mcg/actuation 2 puffs inhalation Q6H PRN 08/10/19 03/23/24 Rx aerosol inhaler (Ventolin HFA) shortness of breath or wheezing #8.5 grams rosuvastatin 20 mg tablet (Crestor) 20 mg PO QAM 09/06/20 03/23/24 History citalopram 40 mg tablet (Celexa) 60 mg PO QAM 04/04/21 03/23/24 History aspirin 325 mg tablet 325 mg PO DAILY 07/27/21 03/23/24 History benzonatate 200 mg capsule 200 mg PO Q8H PRN cough 01/08/23 03/23/24 History insulin aspart U-100 100 unit/mL 10 unit subcut AC 01/08/23 03/23/24 History (3 mL) subcutaneous pen (Novolog FlexPen U-100 Insulin aspart) insulin degludec 100 unit/mL (3 34 unit subcut QAM diabetes 01/08/23 03/23/24 History mL) subcutaneous pen (Tresiba FlexTouch U-100 insulin) linaclotide 290 mcg capsule 290 mcg PO DAILY 01/08/23 03/23/24 History (Linzess) nitroglycerin 0.4 mg sublingual 0.4 mg sublingual Q5M PRN Chest 01/08/23 03/23/24 History tablet (Nitrostat) Pain fluticasone furoate 50 1 inh inhalation DAILY 07/30/23 03/23/24 History mcg-vilanterol 25 mcg/dose inhalation powder (Breo Ellipta) clopidogrel 75 mg tablet 75 mg PO DAILY 02/28/24 03/23/24 History gabapentin 800 mg tablet 800 mg PO TID 02/28/24 03/23/24 History ondansetron 8 mg disintegrating 8 mg PO Q8 PRN N/V 02/28/24 03/23/24 History tablet oxycodone 5 mg tablet 5 mg PO .EVERY 4-6 HRS PRN Pain 02/28/24 03/23/24 History magnesium oxide 400 mg PO DAILY #14 tabs 03/01/24 03/23/24 Rx insulin NPH isoph U-100 human 100 15 unit (0.15 mL) subcut .COMPLEX 03/23/24 03/23/24 Rx unit/mL (3 mL) subcutaneous pen #15 mL (Humulin N NPH U-100 Insulin KwikPen) Patient History Medical History Acute and chronic respiratory failure with hypercapnia Hyperkalemia Urinary retention Hypoxia Somnolence Arthritis Urinary problem urinary hesitancy Spinal stenosis Diabetes IDDM Sleep apnea awaiting CPAP Hypertension Carotid arterial disease "no ICA stenosis.. severe left ECA stenosis" per cardiology office visit note 03/2019 > follows with Dr. Reyes in [place] Interstitial lung disease Surgical History History of elbow surgery right History of melanoma excision History of lumbar spinal fusion L5-S1 decompression/fusion (09/17/19): Grade view 2, Glidescope#3, ETT 8.0 at [facility] Status post lumbar surgery History of arthroscopy of right shoulder History of colonoscopy History of tonsillectomy History of hernia surgery X2 History of thumb surgery R/L History of repair of left rotator cuff History of cardiac cath stent x1 (2014) Synergy stent x1 (11/03/2020) Family History Mother Diabetes Heart disease Cancer Lung cancer Father Cancer Oral cancer Other No family history of adverse response to anesthesia Social History Smoking Status: Current every day smoker Tobacco Type: Cigarettes Cigarettes Per Day: A pack; Second Hand Exposure: No; Do You Dip or Chew Tobacco: No; Tobacco Cessation Education Requested by Patient: No Hx Alcohol Use: No Hx Substance Use: No Preferred Language: Yi Communication Ability: Effective Visual Impairment: No Limitations Hearing Ability: Normal Court Registry Officer Required: No Beliefs That Will Affect Care: None Current Living Situation: Spouse Current Living Situation Comment: Home current occupational status: retired Other Information That Helps Us Care for You: No Feels Safe at Home: Yes Childhood Exposure to Second-Hand Smoke: Yes Diet Comment: food choices with less carbs, uses sugar substitute Assistive Devices: None Results & Data Vital Signs (Past 12 Hours) Vital Signs Temp Pulse Pulse Resp BP Pulse Ox O2 Del Method 04/10/24 08:00 36.5 C 79 18 177/68 H 95 Nasal Cannula 04/10/24 02:46 36.3 C L 85 20 185/73 H 91 Nasal Cannula 04/10/24 00:00 Nasal Cannula 04/09/24 23:24 36.6 C 79 18 181/69 H 93 Nasal Cannula 04/09/24 21:46 85 O2 Flow Rate 04/10/24 08:00 4 04/10/24 02:46 4.0 04/10/24 00:00 4 04/09/24 23:24 4.0 04/09/24 21:46
--- NOTE | 2024-04-10 12:02 | Hospitalist Progress Note ---
Date of Service April 10, 2024 Assessment & Plan (1) Diffuse pain: Plan: (2) Metastatic lung cancer (metastasis from lung to other site): (3) DM type 2 (diabetes mellitus, type 2): Plan 78yo male with history of metastatic adenocarcinoma of the lung currently on chemotherapy with Carboplatin, Paclitaxel and Pembrolizumab presenting with diffuse body pain, persistent despite PO Oxycodone taken at home. Patient has experienced similar pain in the past - thought likely due to his chemotherapy treatment. opiate induced constipation. Antineoplastic chemotherapy induced pancytopenia-resolved with neupogen Multifocal PNA Repeat CT chest was done Progressive multifocal pneumonia compared to the 04/03/2024 study However, i think its probably his lung cancer Clinically, he looks better and feels better The elevated WBC is probably from the steroids IV zosyn was reinstituted, will continue while in hospital, transition to PO Augmentin upon discharge -Pain control has improved -Continue Oxycodone Gabapentin-Tylenol PRN After sustaining a fall, patient had a ct scan of his head: negative.Ordered MRI negative for stroke/ [employer] mets Right eye had subconjunctival hemorrhage, no pain or change in vision Right knee x-ray due to pain shows joint effusion but no hardware issues or fractures Refusing joint aspiration Hypoxic resp failure Baseline history of COPD on home inhalers and cpap at night added IV corticosteroids x 2 days., Still with requirement for oxygen supplementation prednisone 90 mg in AM.( high dose with concern for pneumonitis) Due to anemia: recommended transfusion, patient refused, hemoglobin is remain low but stable. New onset atrial fibrillation rvr, now sinus rhythm diverts discussion for anticoagulation long-term Started patient on amiodarone drip, transition to po 04/06 Diabetes Chronic. Last VanW3Y=0.9 on 01/21/24. Patient with variable blood sugars - He has been seen by Diabetes [facility] for this issue on 03/23/24. -Lantus 12u BID with ISS -Docusate/Senna and Miralax available for bowel management pain appears better controlled. will continue above meds. una with Chronic kidney disease stage 3b Improved with gentle hydration Hyperlipidemia -Continue Crestor 20mg po daily GERD -Continue Protonix 40mg po BID Depression -Continue Citalopram 60mg po qAM Constipation on Miralax Ppx - Lovenox 40u Code - Full Disposition: i spoke to the patient and he says he wants to go home, however, i spoke to the and she says home is not ready yet, that [facility] Admission and Anticipated Discharge Date Admission Date: March 31, 2024 Subjective patient seen and examined, says he feels great and would want to go home Review of Systems Review of Systems: All systems reviewed are negative, apart from the ones contained in the history. Physical Exam Physical Exam: The patient is awake, alert and oriented 3, well developed and well nourished, normocephalic and atraumatic, lying in bed and in no acute distress. HEENT--PERRL, EOMI, mucous membranes and oropharynx mildly dry Neck--supple. No JVD. No bruits. Thyroid normal, trachea midline, no adenopathy. Heart--normal S1 and S2. No murmurs, rubs or gallops. Lungs--reduce air entry, crackles Abdomen--normal bowel sounds and soft. Extremities--no cyanosis or clubbing. No edema. Dermatologic--normal skin turgor, normal color, no abnormal lymph nodes, no rash. Neurologic--cranial nerves II through XII grossly intact. Rheumatologic--normal range of motion. Psychiatric--normal affect. Results & Data Results & Data Vital Signs (Past 12 Hours) Vital Signs Temp Pulse Pulse Resp BP Pulse Ox O2 Del Method 04/10/24 10:35 79 04/10/24 10:26 Nasal Cannula 04/10/24 08:00 97.7 F 79 18 177/68 H 95 Nasal Cannula 04/10/24 02:46 97.3 F L 85 20 185/73 H 91 Nasal Cannula 04/10/24 00:00 Nasal Cannula O2 Flow Rate 04/10/24 10:35 04/10/24 10:26 3 04/10/24 08:00 4 04/10/24 02:46 4.0 04/10/24 00:00 4 PG Care Time/CCT Total # of Minutes Spent Total Time Spent with Patient: Total time spent is greater than 50% in coordination of care (as documented) at patient's floor/unit and/or counseling patient: Coding Level of Care Code 88463 SUB INP/OBS CARE 2/35MIN Diagnoses Diffuse pain R52 Metastatic lung cancer (metastasis from lung to other site) C34.90 DM type 2 (diabetes mellitus, type 2) E11.9 Time Spent (min) 35
[2024-04-10] MEDS: BENZONATATE 100 MG CAPSULE PO PRN (21:18)
[2024-04-11] MEDS: predniSONE 50 MG TAB PO SCH (08:19)
--- NOTE | 2024-04-11 12:11 | Discharge Summary ---
Date of Service April 11, 2024 Admission HPI Per Admitting Provider Robson Alvarez is a 78yo male with history of DM, HTN, HLP, COPD. He has a history of metastatic adenocarcinoma of the lung and is currently receiving Carboplatin, Paclitaxel and Pembrolizumab. He follows with Dr. Choudhury of Oncology. Patient presents today with diffuse, severe body pain. He reports pain involves his bones, joints, muscles. Has been severe 12/04, ongoing since 03/27/24. He has not been able to eat, sleep or ambulate. He has been taking Oxycodone 10mg po q 4 hours at home with no improvement in pain. Additionally reports chills, nausea and constipation as well as persistent cough productive for clear/yellow sputum and some shortness of breath. Patient has had similar pain in the past. He and his reports that he develops similar symptoms approximately once every other month. They are uncertain how the pain temporally relates to his chemotherapy treatments. No fever, abdominal pain, vomiting or diarrhea. In the ER patient hypoxic requiring placement of supplemental O2. Did receive some relief with IV Morphine administered in the ER. ER Course: Morphine Zosyn NSS Protonix 40mg PO Gabapentin 800mg PO Admission Exam (Per Admitting) Constitutional The patient is awake, alert and oriented 3, well developed and well nourished, normocephalic and atraumatic, lying in bed and in no acute distress. HEENT--PERRL, EOMI, mucous membranes and oropharynx mildly dry Neck--supple. No JVD. No bruits. Thyroid normal, trachea midline, no adenopathy. Heart--normal S1 and S2. No murmurs, rubs or gallops. Lungs--clear bilaterally, no respiratory distress, no accessory muscle use. Abdomen--normal bowel sounds and soft. Extremities--no cyanosis or clubbing. No edema. Dermatologic--normal skin turgor, normal color, no abnormal lymph nodes, no rash. Neurologic--cranial nerves II through XII grossly intact. Rheumatologic--normal range of motion. Psychiatric--normal affect. Discharge Data Consultations 03/31/24 19:33 ED Decision to Admit Stat 03/31/24 23:41 Consult Oncology Routine 04/03/24 08:54 Consult Nephrology Routine 04/03/24 10:27 Consult Palliative Care Routine 04/06/24 18:10 Consult Orthopedic Surgery Routine 04/10/24 07:47 Consult Infectious Diseases Routine Hospital Course (1) Diffuse pain: (2) Metastatic lung cancer (metastasis from lung to other site): (3) DM type 2 (diabetes mellitus, type 2): Plan 78yo male with history of metastatic adenocarcinoma of the lung currently on chemotherapy with Carboplatin, Paclitaxel and Pembrolizumab presenting with diffuse body pain, persistent despite PO Oxycodone taken at home. Patient has experienced similar pain in the past - thought likely due to his chemotherapy treatment. opiate induced constipation. Antineoplastic chemotherapy induced pancytopenia-resolved with neupogen Multifocal PNA Repeat CT chest was done Progressive multifocal pneumonia compared to the 04/03/2024 study However, i think its probably his lung cancer Clinically, he looks better and feels better The elevated WBC is probably from the steroids IV zosyn was reinstituted, will continue while in hospital, transition to PO Augmentin upon discharge -Pain control has improved -Continue Oxycodone Gabapentin-Tylenol PRN After sustaining a fall, patient had a ct scan of his head: negative.Ordered MRI negative for stroke/ [employer] mets Right eye had subconjunctival hemorrhage, no pain or change in vision Right knee x-ray due to pain shows joint effusion but no hardware issues or fractures Refusing joint aspiration Hypoxic resp failure Baseline history of COPD on home inhalers and cpap at night added IV corticosteroids x 2 days., Still with requirement for oxygen supplementation prednisone 90 mg in AM.( high dose with concern for pneumonitis) Due to anemia: recommended transfusion, patient refused, hemoglobin is remain low but stable. New onset atrial fibrillation rvr, now sinus rhythm diverts discussion for anticoagulation long-term Started patient on amiodarone drip, transition to po 04/06 Diabetes Chronic. Last LusL2D=8.9 on 01/21/24. Patient with variable blood sugars - He has been seen by Diabetes Clinic for this issue on 03/23/24. -Lantus 12u BID with ISS -Docusate/Senna and Miralax available for bowel management pain appears better controlled. will continue above meds. una with Chronic kidney disease stage 3b Improved with gentle hydration Hyperlipidemia -Continue Crestor 20mg po daily GERD -Continue Protonix 40mg po BID Depression -Continue Citalopram 60mg po qAM Constipation on Miralax Ppx - Lovenox 40u Code - Full Disposition: i spoke to the patient and he says he wants to go home, however, i spoke to the and she says home is not ready yet, that [facility] Coding Level of Care Code 26604 INP/OBS DISCH >30 MIN Diagnoses Diffuse pain R52 Metastatic lung cancer (metastasis from lung to other site) C34.90 DM type 2 (diabetes mellitus, type 2) E11.9 Time Spent (min) 35
--- NOTE | 2024-04-11 14:29 | Hospitalist Progress Note ---
Date of Service April 11, 2024 Assessment & Plan (1) Diffuse pain: Plan: (2) Metastatic lung cancer (metastasis from lung to other site): (3) DM type 2 (diabetes mellitus, type 2): Plan 78yo male with history of metastatic adenocarcinoma of the lung currently on chemotherapy with Carboplatin, Paclitaxel and Pembrolizumab presenting with diffuse body pain, persistent despite PO Oxycodone taken at home. Patient has experienced similar pain in the past - thought likely due to his chemotherapy treatment. opiate induced constipation. Antineoplastic chemotherapy induced pancytopenia-resolved with neupogen Multifocal PNA Repeat CT chest was done Progressive multifocal pneumonia compared to the 04/03/2024 study However, i think its probably his lung cancer Clinically, he looks better and feels better The elevated WBC is probably from the steroids IV zosyn was reinstituted, will continue while in hospital, transition to PO Augmentin upon discharge -Pain control has improved -Continue Oxycodone Gabapentin-Tylenol PRN After sustaining a fall, patient had a ct scan of his head: negative.Ordered MRI negative for stroke/ [employer] mets Right eye had subconjunctival hemorrhage, no pain or change in vision Right knee x-ray due to pain shows joint effusion but no hardware issues or fractures Refusing joint aspiration Hypoxic resp failure Baseline history of COPD on home inhalers and cpap at night added IV corticosteroids x 2 days., Still with requirement for oxygen supplementation prednisone 90 mg in AM.( high dose with concern for pneumonitis) Due to anemia: recommended transfusion, patient refused, hemoglobin is remain low but stable. New onset atrial fibrillation rvr, now sinus rhythm diverts discussion for anticoagulation long-term Started patient on amiodarone drip, transition to po 04/06 Diabetes Chronic. Last ZcgW8M=7.9 on 01/21/24. Patient with variable blood sugars - He has been seen by Diabetes Clinic for this issue on 03/23/24. -Lantus 12u BID with ISS -Docusate/Senna and Miralax available for bowel management pain appears better controlled. will continue above meds. una with Chronic kidney disease stage 3b Improved with gentle hydration Hyperlipidemia -Continue Crestor 20mg po daily GERD -Continue Protonix 40mg po BID Depression -Continue Citalopram 60mg po qAM Constipation on Miralax Ppx - Lovenox 40u Code - Full Disposition: i spoke to the patient and he says he wants to go home, however, i spoke to the and she says home is not ready yet, that [facility] Admission and Anticipated Discharge Date Admission Date: March 31, 2024 Subjective patient seen and examined, says he feels great and would want to go home Review of Systems Review of Systems: All systems reviewed are negative, apart from the ones contained in the history. Physical Exam Physical Exam: The patient is awake, alert and oriented 3, well developed and well nourished, normocephalic and atraumatic, lying in bed and in no acute distress. HEENT--PERRL, EOMI, mucous membranes and oropharynx mildly dry Neck--supple. No JVD. No bruits. Thyroid normal, trachea midline, no adenopathy. Heart--normal S1 and S2. No murmurs, rubs or gallops. Lungs--reduce air entry, crackles Abdomen--normal bowel sounds and soft. Extremities--no cyanosis or clubbing. No edema. Dermatologic--normal skin turgor, normal color, no abnormal lymph nodes, no rash. Neurologic--cranial nerves II through XII grossly intact. Rheumatologic--normal range of motion. Psychiatric--normal affect. Results & Data Results & Data Vital Signs (Past 12 Hours) Vital Signs Temp Pulse Pulse Resp BP BP Pulse Ox 04/11/24 14:00 88 04/11/24 12:53 97.9 F 97 H 16 161/79 H 125/66 96 04/11/24 12:00 97.9 F 97 H 16 161/79 H 96 04/11/24 09:00 04/11/24 09:00 83 04/11/24 07:30 97.7 F 88 18 158/76 H 95 04/11/24 03:34 97.5 F L 74 18 168/80 H 93 O2 Del Method O2 Flow Rate 04/11/24 14:00 04/11/24 12:53 04/11/24 12:00 Nasal Cannula 4 04/11/24 09:00 Nasal Cannula 3 04/11/24 09:00 04/11/24 07:30 Nasal Cannula 4 04/11/24 03:34 Nasal Cannula PG Care Time/CCT Total # of Minutes Spent Total Time Spent with Patient: Total time spent is greater than 50% in coordination of care (as documented) at patient's floor/unit and/or counseling patient: Coding Level of Care Code 59857 SUB INP/OBS CARE 2/35MIN Diagnoses Diffuse pain R52 Metastatic lung cancer (metastasis from lung to other site) C34.90 DM type 2 (diabetes mellitus, type 2) E11.9 Time Spent (min) 35
[2024-04-11 16:49] VITALS: PULSE 87; RESP 18; TEMP 98.2; O2SAT 98
[2024-04-11 17:05] VITALS: BP 125/66
== END 2024-04-11 17:26 | DRG 947 ==
LOC: ED 16:25 → SUATTDRO 20:24 → 3E 20:24 → 2E 04-03 09:26 → 2N 04-04 17:59 → 2S 04-05 12:31

== ENCOUNTER 2024-04-22 14:37 | Inpatient (IN) ==
--- NOTE | 2024-04-22 14:49 | Emergency Department Note ---
Impression & Plan Septic arthritis, Pneumonia, Hypoglycemia, Anemia ED Provider Note NAME: RAFAL BONNER AGE: 78 SEX: M : 1945 ARRIVES VIA: Ambulance INFORMANT: Patient, EMS ED PROVIDER(S): Rio Barrow DO CHIEF COMPLAINT: Sepsis HPI: The patient is a 78-year-old male who presented to my department for evaluation of sepsis. Patient was recently in our facility and evaluated for pneumonia. The patient was sent for rehab. The patient started develop knee swelling. Patient was noted to have hypotension. He was sent to the emergency department for further evaluation. Patient denies having any abdominal pain. He does complain of difficulty breathing. He states has been compliant with his outpatient medications ROS: See above HPI for pertinent positives & negatives. A total of 10 systems reviewed and were otherwise negative. PAST MEDICAL HISTORY: See Below PAST SURGICAL HISTORY: See Below FAMILY HISTORY: See Below SOCIAL HISTORY: See Below HOME MEDICATIONS: See Below ALLERGIES: See Below VITALS: See Below PHYSICAL EXAMINATION: GENERAL: The patient is awake and alert. The patient is somewhat anxious appearing. EYES: The conjunctivae are clear. The pupils are round and reactive. EARS, NOSE, MOUTH AND THROAT: The nose is without any evidence of any deformity. NECK: The neck is nontender and supple. RESPIRATORY: Normal respiratory effort is noted there is no evidence of wheezing rhonchi or rales CARDIOVASCULAR: Regular rate and rhythm noted there no murmurs rubs or gallops normal S1 normal S2. GASTROINTESTINAL: The abdomen is soft. Abdomen is nontender. MUSCULOSKELETAL/EXTREMITIES: There is pain with range of motion testing of the left knee. There is an effusion noted palpation. There is no significant erythema SKIN: Skin is warm and dry. Pedal edema was noted bilaterally NEUROLOGIC: Patient is awake alert and oriented x3 MEDICAL DECISION MAKING: The patient is a 78-year-old male who presented to the emergency department for an evaluation of septic like complaints. The patient was diagnosed with pneumonia and is currently at inpatient rehab. The patient was complaining of knee pain and swelling. He had an arthrocentesis which was positive for bacteria in the joint. The patient was started on IV antibiotics in the emergency department. He was also treated with IV fluids. I discussed patient's laboratory and radiographic studies with him. I discussed his condition with the on-call [facility] orthopedist for the patient's primary group as well as the on-call [facility] hospitalist. They have agreed to evaluate the patient in the emergency department for further management and disposition. Triage Nursing notes reviewed. Prior medical records reviewed Vital Signs: reviewed and remarkable for initial hypotension. Differential diagnosis: Etiologies such as cellulitis, abscess, MRSA infection, dermatitis, drug eruption, necrotizing fasciitis, DVT as well as others were entertained. ER treatment provided: See below Diagnostics interpreted by me: ECG: EKG was obtained in the emergency department today with sinus rhythm at 95 beats per minute. There was noted. Nonspecific ST abnormalities noted. Cardiac Monitoring: An order was placed for continuous cardiac monitoring. The monitor shows a rate of 78 bpm with sinus rhythm Laboratory studies: As stated above and show below. Imaging studies: See below. Radiographic imaging was reviewed by myself Consultation(s): I discussed this case with Dr. Calderon [facility] I discussed this case with Dr. Kumari who is on-call for orthopedics. Past Med/Surg History Problem List (Updated 04/22/24 @ 21:57 by Rio Barrow DO) Anemia (Acute) Hypoglycemia (Acute) Pneumonia (Acute) Septic arthritis (Acute) Septic joint of left knee joint Pseudogout of left knee Effusion, left knee Acute hypoxemic respiratory failure Osteoarthritis of left knee Acute pain due to injury Pain Hyponatremia Chronic post-traumatic stress disorder (PTSD) after combat Diarrhea Dyspnea and respiratory abnormalities Anxiety associated with cancer diagnosis Palliative care by specialist Diffuse pain Pneumonia (Acute) Hypoxia (Acute) Hypercalcemia Hypoglycemia (Acute) Pain in right testicle (Acute) Testicular pain, right Metastatic lung cancer (metastasis from lung to other site) Lesion of adrenal gland Anemia Vitamin D deficiency Stage 3b chronic kidney disease Constipation JAY on CPAP Neurogenic claudication due to lumbar spinal stenosis Tobacco use Hypomagnesemia Elevated troponin Hypervolemia LUQ abdominal pain (Acute) Hypoxia (Acute) Leukocytosis (Acute) Pneumonia (Acute) Vomiting (Acute) Hypertension (Acute) Acute kidney injury (Acute) Acidosis, lactic (Acute) Acute hypotension (Acute) Acute dehydration (Acute) Solitary pulmonary nodule (Chronic) Depression Chest pain Lung cancer Stroke Immediately after spinal fusion 04/2019---went into kidney failure at the same time > only deficit is sometimes he "dribbles out of the left side of his mouth" Peripheral arterial occlusive disease "total occlusion of the SFA and the left mid thigh area with reconstitution with collaterals and monophasic flow bilateral below knee area" per cardiology office visit note 03/2019 Hyperlipidemia GERD (gastroesophageal reflux disease) controlled DM type 2 (diabetes mellitus, type 2) CAD (coronary artery disease) angioplasty/KARRIE to pRCA (2014) Synergy stent (11/03/2020) after failed stress test Chronic obstructive pulmonary disease CKD (chronic kidney disease), stage III Pulmonary nodule 1 cm or greater in diameter (Chronic 08/25/20) Medical History Acute and chronic respiratory failure with hypercapnia Hyperkalemia Urinary retention Hypoxia Somnolence Arthritis Urinary problem urinary hesitancy Spinal stenosis Diabetes IDDM Sleep apnea awaiting CPAP Hypertension Carotid arterial disease "no ICA stenosis.. severe left ECA stenosis" per cardiology office visit note 03/2019 > follows with Dr. Reyes in [place] Interstitial lung disease Surgical History History of elbow surgery right History of melanoma excision History of lumbar spinal fusion L5-S1 decompression/fusion (09/17/19): Grade view 2, Glidescope#3, ETT 8.0 at [facility] Status post lumbar surgery History of arthroscopy of right shoulder History of colonoscopy History of tonsillectomy History of hernia surgery X2 History of thumb surgery R/L History of repair of left rotator cuff History of cardiac cath stent x1 (2014) Synergy stent x1 (11/03/2020) Family History Mother Diabetes Heart disease Cancer Lung cancer Father Cancer Oral cancer Other No family history of adverse response to anesthesia Social History Smoking Status: Current every day smoker Tobacco Type: Cigarettes Cigarettes Per Day: A pack; Second Hand Exposure: No; Do You Dip or Chew Tobacco: No; Hx Alcohol Use: No Hx Substance Use: No Preferred Language: Latvian Communication Ability: Effective Visual Impairment: No Limitations Hearing Ability: Normal [employer] Required: No Beliefs That Will Affect Care: None Current Living Situation: Spouse Current Living Situation Comment: Home current occupational status: retired Feels Safe at Home: Yes Safety Concerns: Feels Safe At This Time Childhood Exposure to Second-Hand Smoke: Yes Diet Comment: food choices with less carbs, uses sugar substitute Assistive Devices: None Allergies Allergies Allergy/AdvReac Type Severity Reaction Status Date / Time adhesive Allergy Mild Silk/plastic Verified 03/23/24 09:58 adhesive tape (redness, blistering) Sulfa (Sulfonamide AdvReac Intermediate nausea & Verified 03/23/24 09:58 Antibiotics) vomiting Home Meds Home Medications Medication Instructions Recorded Confirmed pantoprazole 40 mg tablet,delayed 40 mg PO BID 12/23/18 04/22/24 release (Protonix) citalopram 40 mg tablet (Celexa) 60 mg PO QAM 04/04/21 04/22/24 aspirin 325 mg tablet 325 mg PO DAILY 07/27/21 04/22/24 benzonatate 200 mg capsule 200 mg PO Q8H PRN cough 01/08/23 04/22/24 insulin degludec 100 unit/mL (3 34 unit subcut QAM diabetes 01/08/23 04/22/24 mL) subcutaneous pen (Tresiba FlexTouch U-100 insulin) linaclotide 290 mcg capsule 290 mcg PO DAILY 01/08/23 04/22/24 (Linzess) nitroglycerin 0.4 mg sublingual 0.4 mg sublingual Q5M PRN Chest 01/08/23 04/22/24 tablet (Nitrostat) Pain fluticasone furoate 50 1 inh inhalation DAILY 07/30/23 04/22/24 mcg-vilanterol 25 mcg/dose inhalation powder (Breo Ellipta) clopidogrel 75 mg tablet 75 mg PO DAILY 02/28/24 04/22/24 gabapentin 800 mg tablet 800 mg PO TID 02/28/24 04/22/24 ondansetron 8 mg disintegrating 8 mg PO Q8 PRN N/V 02/28/24 04/22/24 tablet oxycodone 5 mg tablet 5 mg PO .EVERY 4-6 HRS PRN Pain 02/28/24 04/22/24 insulin aspart 10 unit subcut AC 04/22/24 04/22/24 (niacinamide)(U-100) 100 unit/mL(3 mL) subcutaneous pen (Fiasp FlexTouch U-100 Insulin) rosuvastatin 40 mg tablet 40 mg PO DAILY 04/22/24 04/22/24 Previous Rx's Medication Instructions Recorded CPAP Machine #1 ea 04/22/19 CPAP Supplies #1 ea 04/22/19 CPAP Machine #1 ea 08/10/19 albuterol sulfate 90 mcg/actuation 2 puffs inhalation Q6H PRN 08/10/19 aerosol inhaler (Ventolin HFA) shortness of breath or wheezing #8.5 grams magnesium oxide 400 mg PO DAILY #14 tabs 03/01/24 insulin NPH isoph U-100 human 100 15 unit (0.15 mL) subcut .COMPLEX 03/23/24 unit/mL (3 mL) subcutaneous pen #15 mL (Humulin N NPH U-100 Insulin KwikPen) Results & Data (ED) Vital Signs Vital Signs - 24 hr 04/22/24 14:12 04/22/24 14:24 04/22/24 14:38 Temperature 37.0 C Temperature Source Oral Pulse Rate 93 H Pulse Rate [Apical] Pulse Rate from SpO2 Sensor Respiratory Rate 18 18 16 Blood Pressure 129/53 L Blood Pressure [Left Arm] Blood Pressure Mean 78 Blood Pressure Mean [Left Arm] Pulse Oximetry 99 88 L Oxygen Delivery Method Nasal Cannula Oxygen Flow Rate 6 Sepsis Recent Fever Within 48 Hours No Sepsis New/Unexplained Change in Mental Status N/A Sepsis Action Taken by Nursing No Action Required 04/22/24 14:38 04/22/24 14:51 04/22/24 15:00 Temperature Temperature Source Pulse Rate 92 H Pulse Rate [Apical] Pulse Rate from SpO2 Sensor 92 H Respiratory Rate 21 Blood Pressure 121/57 L Blood Pressure [Left Arm] Blood Pressure Mean 76 Blood Pressure Mean [Left Arm] Pulse Oximetry 89 L 89 L Oxygen Delivery Method Nasal Cannula Oxygen Flow Rate 6 Sepsis Recent Fever Within 48 Hours Sepsis New/Unexplained Change in Mental Status Sepsis Action Taken by Nursing 04/22/24 15:00 04/22/24 15:06 04/22/24 15:12 Temperature Temperature Source Pulse Rate 90 89 Pulse Rate [Apical] Pulse Rate from SpO2 Sensor 89 89 Respiratory Rate 18 22 Blood Pressure 121/57 L Blood Pressure [Left Arm] Blood Pressure Mean 76 Blood Pressure Mean [Left Arm] Pulse Oximetry 90 89 L Oxygen Delivery Method Oxygen Flow Rate Sepsis Recent Fever Within 48 Hours Sepsis New/Unexplained Change in Mental Status Sepsis Action Taken by Nursing 04/22/24 15:15 04/22/24 15:15 04/22/24 15:15 Temperature Temperature Source Pulse Rate 89 Pulse Rate [Apical] Pulse Rate from SpO2 Sensor 89 Respiratory Rate 19 Blood Pressure 120/64 120/64 Blood Pressure [Left Arm] Blood Pressure Mean 77 77 Blood Pressure Mean [Left Arm] Pulse Oximetry 92 Oxygen Delivery Method Oxygen Flow Rate Sepsis Recent Fever Within 48 Hours Sepsis New/Unexplained Change in Mental Status Sepsis Action Taken by Nursing 04/22/24 15:15 04/22/24 15:27 04/22/24 15:28 Temperature Temperature Source Pulse Rate 89 Pulse Rate [Apical] Pulse Rate from SpO2 Sensor 88 Respiratory Rate 22 18 Blood Pressure 120/64 Blood Pressure [Left Arm] Blood Pressure Mean 77 Blood Pressure Mean [Left Arm] Pulse Oximetry 97 Oxygen Delivery Method Oxygen Flow Rate Sepsis Recent Fever Within 48 Hours Sepsis New/Unexplained Change in Mental Status Sepsis Action Taken by Nursing 04/22/24 15:30 04/22/24 15:30 04/22/24 15:30 Temperature Temperature Source Pulse Rate Pulse Rate [Apical] Pulse Rate from SpO2 Sensor Respiratory Rate 18 Blood Pressure 161/90 H 161/90 H Blood Pressure [Left Arm] Blood Pressure Mean 127 127 Blood Pressure Mean [Left Arm] Pulse Oximetry Oxygen Delivery Method Oxygen Flow Rate Sepsis Recent Fever Within 48 Hours Sepsis New/Unexplained Change in Mental Status Sepsis Action Taken by Nursing 04/22/24 15:30 04/22/24 15:30 04/22/24 15:42 Temperature Temperature Source Pulse Rate 88 87 Pulse Rate [Apical] Pulse Rate from SpO2 Sensor 88 88 Respiratory Rate 20 25 H Blood Pressure 161/90 H Blood Pressure [Left Arm] Blood Pressure Mean 127 Blood Pressure Mean [Left Arm] Pulse Oximetry 97 98 Oxygen Delivery Method Oxygen Flow Rate Sepsis Recent Fever Within 48 Hours Sepsis New/Unexplained Change in Mental Status Sepsis Action Taken by Nursing 04/22/24 15:45 04/22/24 15:45 04/22/24 15:45 Temperature Temperature Source Pulse Rate 89 Pulse Rate [Apical] Pulse Rate from SpO2 Sensor 89 Respiratory Rate 23 Blood Pressure 152/61 H 152/61 H Blood Pressure [Left Arm] Blood Pressure Mean 99 99 Blood Pressure Mean [Left Arm] Pulse Oximetry 98 Oxygen Delivery Method Oxygen Flow Rate Sepsis Recent Fever Within 48 Hours Sepsis New/Unexplained Change in Mental Status Sepsis Action Taken by Nursing 04/22/24 15:48 04/22/24 15:49 04/22/24 16:00 Temperature Temperature Source Pulse Rate 86 86 Pulse Rate [Apical] 86 Pulse Rate from SpO2 Sensor 87 Respiratory Rate 18 17 Blood Pressure Blood Pressure [Left Arm] 153/61 H Blood Pressure Mean Blood Pressure Mean [Left Arm] 91 Pulse Oximetry 97 95 Oxygen Delivery Method Oxygen Flow Rate Sepsis Recent Fever Within 48 Hours Sepsis New/Unexplained Change in Mental Status Sepsis Action Taken by Nursing 04/22/24 16:00 04/22/24 16:00 04/22/24 16:00 Temperature Temperature Source Pulse Rate Pulse Rate [Apical] Pulse Rate from SpO2 Sensor Respiratory Rate Blood Pressure 130/56 L 130/56 L 130/56 L Blood Pressure [Left Arm] Blood Pressure Mean 84 84 84 Blood Pressure Mean [Left Arm] Pulse Oximetry Oxygen Delivery Method Oxygen Flow Rate Sepsis Recent Fever Within 48 Hours Sepsis New/Unexplained Change in Mental Status Sepsis Action Taken by Nursing 04/22/24 16:21 04/22/24 16:24 04/22/24 16:30 Temperature Temperature Source Pulse Rate 85 Pulse Rate [Apical] 85 Pulse Rate from SpO2 Sensor 85 Respiratory Rate 16 18 Blood Pressure 121/51 L Blood Pressure [Left Arm] 128/58 L Blood Pressure Mean 94 Blood Pressure Mean [Left Arm] 81 Pulse Oximetry 95 96 Oxygen Delivery Method Oxymask Oxygen Flow Rate 4 Sepsis Recent Fever Within 48 Hours Sepsis New/Unexplained Change in Mental Status Sepsis Action Taken by Nursing 04/22/24 16:30 Temperature Temperature Source Pulse Rate 82 Pulse Rate [Apical] Pulse Rate from SpO2 Sensor 88 Respiratory Rate 14 Blood Pressure Blood Pressure [Left Arm] Blood Pressure Mean Blood Pressure Mean [Left Arm] Pulse Oximetry 95 Oxygen Delivery Method Oxygen Flow Rate Sepsis Recent Fever Within 48 Hours Sepsis New/Unexplained Change in Mental Status Sepsis Action Taken by Long-Term Medications Current Medication List: was personally reviewed by ar Laboratory Data Attestation: I reviewed the patient's lab results. 04/22/24 17:01 04/22/24 14:50 Lab Results 04/22/24 04/22/24 04/22/24 Range/Units 14:50 15:08 15:22 WBC 4.21 L (4.8-10.8) K/ul RBC 2.10 L (4.70-6.10) M/uL Hgb 7.1 L (14.0-18.0) g/dl Hct 21.5 L (42.0-52.0) % MCV 102.4 H (80.0-100.0) fL MCH 33.8 (25.0-34.0) pg MCHC 33.0 (32.0-36.0) g/dL RDW Std Deviation 64.1 H (36.4-46.3) fL RDW Coeff of Jono 17.8 H (11.5-14.5) % Plt Count 196 (130-400) K/uL MPV 10.0 (9.4-12.4) fL Immature Gran % (Auto) 0.2 % Neut % (Auto) 74.0 % Lymph % (Auto) 15.9 % Tama % (Auto) 9.7 % Eos % (Auto) 0.2 % Baso % (Auto) 0.0 % Neut # (Auto) 3.11 (1.40-6.50) K/uL Lymph # (Auto) 0.67 L (1.20-3.40) K/uL Tama # (Auto) 0.41 (0.11-0.59) K/uL Eos # (Auto) 0.01 (0.00-0.50) K/uL Baso # (Auto) 0.00 (0.00-0.20) K/uL Immature Gran # (Auto) 0.01 (0.01-0.20) K/uL Absolute Nucleated RBC 0.02 (0.00-0.12) K/uL Nucleated RBC % (auto) 0.5 % Toxic Granulation 1+ Dohle Bodies 1+ Polychromasia 1+ PT 11.0 (9.0-12.0) Seconds INR 1.0 (0.9-1.1) APTT 23 (21-31) Seconds PTT Ratio 0.9 VBG pH 7.43 H (7.36-7.41) VBG pCO2 40 (38-50) mmHg VBG pO2 38 mmHg VBG HCO3 27 mmol/L VBG O2 Saturation 68.0 % VBG Base Excess 2.0 mEq/L Sodium 141 (136-145) mmol/L Potassium 4.4 (3.5-5.1) mmol/L Chloride 108 H (98-107) mmol/L Carbon Dioxide 27 (21-32) mmol/L Anion Gap 6 (3-11) BUN 31 H (6-23) mg/dl Creatinine 1.49 H (0.6-1.4) mg/dl Est Cr Clr Drug Dosing 49.1 ml/min eGFR 48.04 BUN/Creatinine Ratio 20.8 H (10-20) Glucose 44 L* (70-99(Fasting)) mg/dl Lactate 2.0 (0.4-2.0) mmol/L Calcium 8.2 L (8.6-10.3) mg/dl Magnesium 1.5 L (1.7-2.4) mg/dl Total Bilirubin 0.3 (0.2-1.0) mg/dl Direct Bilirubin 0.1 (0-0.2) mg/dl AST 14 (13-39) U/L ALT 15 (7-52) U/L Alkaline Phosphatase 57 (34-104) U/L Troponin I High Sens 44.9 H (0-20) pg/ml Total Protein 5.2 L (6.0-8.3) gm/dl Albumin 2.3 L (3.4-5.0) gm/dl Procalcitonin 0.16 (0-0.5) ng/ml Fluid Comment Synovial Source Synovial Color Synovial Appearance Synovial WBC (Auto) (0-200) /ul Synovial RBC (Auto) /uL Synovial Polynuclear % % Synovial Mononuclear % % SARS-CoV-2 (PCR) NEGATIVE (Negative) Influenza Type A (PCR) Negative (Neg) Influenza Type B (PCR) Negative (Neg) RSV (RT-PCR) Negative (Neg) 04/22/24 Range/Units 16:40 WBC (4.8-10.8) K/ul RBC (4.70-6.10) M/uL Hgb (14.0-18.0) g/dl Hct (42.0-52.0) % MCV (80.0-100.0) fL MCH (25.0-34.0) pg MCHC (32.0-36.0) g/dL RDW Std Deviation (36.4-46.3) fL RDW Coeff of Jono (11.5-14.5) % Plt Count (130-400) K/uL MPV (9.4-12.4) fL Immature Gran % (Auto) % Neut % (Auto) % Lymph % (Auto) % Tama % (Auto) % Eos % (Auto) % Baso % (Auto) % Neut # (Auto) (1.40-6.50) K/uL Lymph # (Auto) (1.20-3.40) K/uL Tama # (Auto) (0.11-0.59) K/uL Eos # (Auto) (0.00-0.50) K/uL Baso # (Auto) (0.00-0.20) K/uL Immature Gran # (Auto) (0.01-0.20) K/uL Absolute Nucleated RBC (0.00-0.12) K/uL Nucleated RBC % (auto) % Toxic Granulation Dohle Bodies Polychromasia PT (9.0-12.0) Seconds INR (0.9-1.1) APTT (21-31) Seconds PTT Ratio VBG pH (7.36-7.41) VBG pCO2 (38-50) mmHg VBG pO2 mmHg VBG HCO3 mmol/L VBG O2 Saturation % VBG Base Excess mEq/L Sodium (136-145) mmol/L Potassium (3.5-5.1) mmol/L Chloride (98-107) mmol/L Carbon Dioxide (21-32) mmol/L Anion Gap (3-11) BUN (6-23) mg/dl Creatinine (0.6-1.4) mg/dl Est Cr Clr Drug Dosing ml/min eGFR BUN/Creatinine Ratio (10-20) Glucose (70-99(Fasting)) mg/dl Lactate (0.4-2.0) mmol/L Calcium (8.6-10.3) mg/dl Magnesium (1.7-2.4) mg/dl Total Bilirubin (0.2-1.0) mg/dl Direct Bilirubin (0-0.2) mg/dl AST (13-39) U/L ALT (7-52) U/L Alkaline Phosphatase (34-104) U/L Troponin I High Sens (0-20) pg/ml Total Protein (6.0-8.3) gm/dl Albumin (3.4-5.0) gm/dl Procalcitonin (0-0.5) ng/ml Fluid Comment Synovial Source Left Knee Synovial Color Munira Synovial Appearance Cloudy Synovial WBC (Auto) 99431 H (0-200) /ul Synovial RBC (Auto) 29289 /uL Synovial Polynuclear % 94.2 % Synovial Mononuclear % 5.8 % SARS-CoV-2 (PCR) (Negative) Influenza Type A (PCR) (Neg) Influenza Type B (PCR) (Neg) RSV (RT-PCR) (Neg) Administered Medications Albuterol (Albut/Ipratrop 3mg/0.5mg Neb 3 Ml Vial) 3 ml NEB QIDR MONI; Protocol Stop: 05/22/24 18:59 Last Admin: 04/22/24 20:18 Dose: 3 ml Documented By: NLEI Gabapentin (Gabapentin 600 Mg Tab) 600 mg PO TID MONI Stop: 05/22/24 20:59 Last Admin: 04/22/24 20:48 Dose: 600 mg Documented By: CONSTANZA Oxycodone HCl (Oxycodone Hcl Ir 5 Mg Tab (Immediate Release)) 5 mg PO Q6 PRN PRN Reason: Pain Stop: 05/06/24 18:19 Last Admin: 04/22/24 19:49 Dose: 5 mg Documented By: CONSTANZA Pantoprazole Sodium (Pantoprazole 40 Mg Tab) 40 mg PO BID MONI Stop: 05/22/24 20:59 Last Admin: 04/22/24 20:48 Dose: 40 mg Documented By: CONSTANZA Discontinued Medications Dextrose (Dextrose 50% 50 Ml Syringe) Confirm Administered Dose 50 ml IV .STK- MED ONE Stop: 04/22/24 15:45 Last Admin: 04/22/24 15:45 Dose: 25 ml Documented By: AKILAH Dextrose (Dextrose 50% 50 Ml Syringe) Confirm Administered Dose 50 ml IV .STK- MED ONE Stop: 04/22/24 16:30 Last Admin: 04/22/24 16:31 Dose: 50 ml Documented By: AKILAH Sodium Chloride (Nss) 1,000 mls @ 999 mls/hr IV .Q1H1M ONE Stop: 04/22/24 15:38 Last Infusion: 04/22/24 17:09 Dose: Infused Documented By: Admin: 04/22/24 15:20 Dose: 999 mls/hr Documented By: AKILAH Cefepime HCl (Maxipime 2000mg) 2,000 mg in 20 mls @ 5 mls/min IV NOW STA; Protocol Stop: 04/22/24 14:44 Last Admin: 04/22/24 15:20 Dose: 5 mls/min Documented By: AKILAH Magnesium Sulfate/Dextrose (Magnesium Sulfate / D5w) 1 gm in 100 mls @ 100 mls/hr IV Q1H MONI Stop: 04/22/24 18:02 Last Infusion: 04/22/24 19:54 Dose: Infused Documented By: Admin: 04/22/24 17:28 Dose: 100 mls/hr Documented By: Infusion: 04/22/24 17:28 Dose: Infused Documented By: Admin: 04/22/24 16:28 Dose: 100 mls/hr Documented By: AKILAH Vancomycin HCl 2,000 mg/ (Sodium Chloride) 540 mls @ 200 mls/hr IV 1715 ONE Stop: 04/22/24 19:56 Last Admin: 04/22/24 20:48 Dose: 200 mls/hr Documented By: CONSTANZA Lidocaine/Epinephrine (Lidocaine 1%/Epinephrine 1:100,000 50 Ml Vial) Confirm Administered Dose 1 ml .ROUTE .[facility] ONE Stop: 04/22/24 16:34 Last Admin: 04/22/24 16:37 Dose: 50 ml Documented By: MIAN Imaging Data Attestation: I personally reviewed and interpreted this imaging study as follows: My Impression: 1 view chest x-ray was obtained in the emergency department. My interpretation is left lower lobe infiltrate, final report below. Radiologist's Impression: Chest X-Ray 04/22/24 14:38 XR chest 1V portable CLINICAL HISTORY: Sepsis COMPARISON STUDY: 04/07/2024 FINDINGS: Stable cardiomegaly with mild pulmonary vascular congestion. There is small to moderate left pleural effusion, increased. There is increased consolidation at the left lung base. Stable diffuse pulmonary interstitial opacities otherwise. IMPRESSION: Increased pleural effusion and consolidation on the left. ACT 112: Negative or not required by law. Electronically signed by: Keith Burger M.D. 04/22/2024 3:38 PM Discharge Plan Visit Data Chief Complaint: Infection Stated Complaint: KNEE INFECTION, HYPOTENSION ED Provider: Rio Barrow Discharge Problem: Septic arthritis, Pneumonia, Hypoglycemia, Anemia Patient Disposition: Being Evaluated by Hospitalist
[2024-04-22 15:14] LABS: Eosinophils # (auto) 0.01 K/uL (0.00-0.50); Eosinophils % (auto) 0.2 %; Hematocrit (blood only) 21.5 % (42.0-52.0); Hemoglobin 7.1 g/dl (14.0-18.0); Immature Granulocytes # (auto) 0.01 K/uL (0.01-0.20); Immature Granulocytes % (auto) 0.2 %; Lymphocytes # (auto) 0.67 K/uL (1.20-3.40); Lymphocytes % (auto) 15.9 %; Mean Corpuscular Hemoglobin 33.8 pg (25.0-34.0); Mean Corpuscular Volume 102.4 fL (80.0-100.0); Monocytes # (auto) 0.41 K/uL (0.11-0.59); Monocytes % (auto) 9.7 %; Neutrophils # (auto) 3.11 K/uL (1.40-6.50); Nucleated RBC # (auto) 0.02 K/uL (0.00-0.12); Nucleated RBC % (auto) 0.5 %; Platelet Count 196 K/uL (130-400); RDW Coefficient of Variation 17.8 % (11.5-14.5); RDW Standard Deviation 64.1 fL (36.4-46.3); White Blood Count 4.21 K/ul (4.8-10.8)
[2024-04-22] MEDS: CEFEPIME 2000MG 2,000 MG/20 ML SYR IV STA (15:20)
[2024-04-22] MEDS: SODIUM CHLORIDE 0.9% 1,000 ML IV ONE (15:20)
[2024-04-22 15:25] LABS: HCO3 VBG 27 mmol/L; PCO2 VBG 40 mmHg (38-50); PO2 VBG 38 mmHg; pH VBG 7.43 (7.36-7.41)
--- NOTE | 2024-04-22 15:39 | XRay Report ---
XR chest 1V portable CLINICAL HISTORY: Sepsis COMPARISON STUDY: 04/07/2024 FINDINGS: Stable cardiomegaly with mild pulmonary vascular congestion. There is small to moderate lef t pleural effusion, increased. There is increased consolidation at the left lung base. Stable diffuse pulmonary interstitial opacities otherwise. IMPRESSION: Increased pleural effusion and consolidation on the left. ACT 112: Negative or not required by law. Electronically signed by: Keith Burger M.D. 04/22/2024 3:38 PM
[2024-04-22 15:43] LABS: Albumin Level 2.3 gm/dl (3.4-5.0); BUN Creatinine Ratio 20.8 (10-20); Bilirubin Direct 0.1 mg/dl (0-0.2); Bilirubin,Total 0.3 mg/dl (0.2-1.0); Calcium 8.2 mg/dl (8.6-10.3); Creatinine Clr Calc Pharmacy 49.1 ml/min; Magnesium 1.5 mg/dl (1.7-2.4); Potassium 4.4 mmol/L (3.5-5.1); Total Protein 5.2 gm/dl (6.0-8.3); Troponin I High Sensitivity 44.9 pg/ml (0-20)
[2024-04-22 15:45] LABS: Partial Thromboplastin Ratio 0.9; Partial Thromboplastin Time 23 Seconds (21-31)
[2024-04-22] MEDS: DEXTROSE 50% 50 ML SYRINGE IV ONE ×2 (15:45→16:31)
[2024-04-22 15:56] LABS: Dohle Bodies 1+; Polychromasia 1+; Toxic Granulation 1+
[2024-04-22 16:15] LABS: Influenza A virus by PCR Negative (Neg); Influenza B virus by PCR Negative (Neg); RSV by PCR Negative (Neg); SARS CoV2 RNA(COVID-19) Ceph NEGATIVE (Negative)
[2024-04-22] MEDS: MAGNESIUM SULFATE / D5W 1 GM/100 ML BAG IV SCH (16:28)
[2024-04-22] MEDS: LIDOCAINE 1%/EPINEPHRINE 1:100,000 50 ML VIAL ONE (16:37)
[2024-04-22] MEDS ORDERED: SODIUM CHLORIDE 0.9% 100 ML IV PRN ×2 (16:41→17:09)
[2024-04-22] MEDS ORDERED: SODIUM CHLORIDE 0.9% 50 ML IV PRN ×2 (16:41→17:09)
[2024-04-22] MEDS ORDERED: VANCOMYCIN CONSULT ACTIVE PRN (16:44)
[2024-04-22] MEDS ORDERED: ONDANSETRON INJ 2 MG/ML 2 ML VIAL IV PRN (16:50)
[2024-04-22] MEDS ORDERED: ALBUTEROL 0.083% NEBU SOLN 3 ML VIAL NEB PRN (16:56)
--- NOTE | 2024-04-22 17:07 | History & Physical Report ---
Date of Service April 22, 2024 Assessment & Plan (1) Acute hypoxemic respiratory failure: Plan: Assessment: 1. Acute hypoxemic respiratory failure. Pulmonary toilet as discussed below. 2. Left lung pneumonia with moderate-sized parapneumonic effusion. IV vanc omycin. IV cefepime. Sputum cultures. Nebulizer treatments. Pulmonology consultation for possible therapeutic and diagnostic thoracentesis. Have communicated personally with pulmonology on-call. 3. Left knee effusion with possible septic joint. Orthopedics consulted. Dr. Kumari at the bedside during my exam. Status post arthrocentesis yesterday and again today at the bedside. Sent for culture. Continue IV cefepime and IV vancomycin. 4. Acute on chronic anemia. Symptomatic now with elevated troponins and hypoxemia. We will transfuse 2 units of packed red blood cells. He stools for occult blood. Hold off on antiplatelet and anticoagulation therapy. Will do iron studies prior to transfusion. Informed consent was obtained at the bedside with nursing staff present and form signed. 5. History of paroxysmal atrial fibrillation during his last admission. Was commenced on amiodarone at that time. I do not appreciate where he is placed on DOAC therapy. However med reconciliation not completed. 6. Diabetes mellitus type 2. Insulin requiring. Insulins will be held off on on this time given the significant hypoglycemia. Will check blood glucoses every 4 hours. On-call provider will be notified if less than 80 or greater than 180. 7. Hypoglycemia. Refractory. 44. After D50 still 71. Additional amp of D50. Every 4 hour blood glucose checks physician to be called less than 80 or greater than 180 at which time insulin therapy can be instituted cautiously. 8. Lung cancer with renal cell carcinoma. Under active treatment per the patient family. 9. COPD with exacerbation secondary to pneumonia. 10. Sleep apnea. Patient does not use CPAP currently at home. Although he does have a history of this. Will do continuous pulse ox. 11. History of depression. Continue home medication. 12. History of GERD. Will do Protonix twice daily. 13. History of dyslipidemia. Continue medication. 14. Mildly elevated troponins probably from demand ischemia due to hypoxemic respiratory failure. Trend. Echocardiogram. 15. History of carotid artery disease follows with vascular surgery in [place]. 15. Hypomagnesemia. Replaced. Will be rechecked. Plan: As discussed above. Please refer to orders for further planning. History of Present Illness Chief Complaint: Shortness of breath, altered mental status, hypoxemia, left knee pain and swelling. Primary Care Provider: ISSAC Villarreal Pleasant 78-year-old male who presents with complex conglomeration of chief complaints including the above. Recently hospitalized with acute hypoxemic respiratory failure and multifocal pneumonia. Approximately 2 weeks ago. At that time he was treated with antibiotic therapy. He went into atrial fibrillation during that admission for which she was commenced on amiodarone. I do not see where he is fully anticoagulated but his med reconciliation is not completed yet he is on Plavix and aspirin chronically. He is also under the treatment for metastatic lung cancer with a history of renal carcinoma. Last chemotherapy was around March 23. Has been having some increased pain in his left knee and swelling. He had a arthrocentesis yesterday which is a lot of white cells and occasional Kle bsiella. With his fever and altered mental status he was sent to the ER for further evaluation and treatment. He was found to be hypoxemic requiring up to 6 L oxygen nasal cannula. Viral respiratory panel was negative. Chest x-ray was pertinent for a large left lower middle lobe infiltrate with a parapneumonic effusion moderate in size. Patient was found to have a hemoglobin of 7.1 which is trending downward from his baseline over the last couple months. Is also found to have a mildly elevated troponin at 44.9. Magnesium low at 1.5. Blood glucose was found to be 44 by lab draw. Course in the ER blood cultures were obtained. He received 2 g of IV cefepime. An amp of D50. We are called admit the patient for further evaluation and treatment. Orthopedics was consulted. They repeated arthrocentesis at the bedside and sent for culture. We are ordering IV vancomycin and IV cefepime for the possible infected left knee joint as well as his possible hospital-acquired pneumonia. W e have consulted pulmonology for consideration of thoracentesis. We have ordered stool for occult blood and iron studies. I will hold off on his Plavix and aspirin. Will going to transfuse 2 units p acked red blood cells given his respiratory failure and elevated cardiac enzymes with a hemoglobin of 7.1. Last echocardiogram was approximately a year ago when he had a well-preserved left ventricular ejection fraction. Allergies Allergy/AdvReac Type Severity Reaction Status Date / Time adhesive Allergy Mild Silk/plastic Verified 03/23/24 09:58 adhesive tape (redness, blistering) Sulfa (Sulfonamide AdvReac Intermediate nausea & Verified 03/23/24 09:58 Antibiotics) vomiting Home Medications Medication Instructions Recorded Confirmed Type pantoprazole 40 mg tablet,delayed 40 mg PO BID 12/23/18 03/23/24 History release (Protonix) CPAP Machine #1 ea 04/22/19 03/23/24 Rx CPAP Supplies #1 ea 04/22/19 03/23/24 Rx CPAP Machine #1 ea 08/10/19 03/23/24 Rx albuterol sulfate 90 mcg/actuation 2 puffs inhalation Q6H PRN 08/10/19 03/23/24 Rx aerosol inhaler (Ventolin HFA) shortness of breath or wheezing #8.5 grams rosuvastatin 20 mg tablet (Crestor) 20 mg PO QAM 09/06/20 03/23/24 History citalopram 40 mg tablet (Celexa) 60 mg PO QAM 04/04/21 03/23/24 History aspirin 325 mg tablet 325 mg PO DAILY 07/27/21 03/23/24 History benzonatate 200 mg capsule 200 mg PO Q8H PRN cough 01/08/23 03/23/24 History insulin aspart U-100 100 unit/mL 10 unit subcut AC 01/08/23 03/23/24 History (3 mL) subcutaneous pen (Novolog FlexPen U-100 Insulin aspart) insulin degludec 100 unit/mL (3 34 unit subcut QAM diabetes 01/08/23 03/23/24 History mL) subcutaneous pen (Tresiba FlexTouch U-100 insulin) linaclotide 290 mcg capsule 290 mcg PO DAILY 01/08/23 03/23/24 History (Linzess) nitroglycerin 0.4 mg sublingual 0.4 mg sublingual Q5M PRN Chest 01/08/23 03/23/24 History tablet (Nitrostat) Pain fluticasone furoate 50 1 inh inhalation DAILY 07/30/23 03/23/24 History mcg-vilanterol 25 mcg/dose inhalation powder (Breo Ellipta) clopidogrel 75 mg tablet 75 mg PO DAILY 02/28/24 03/23/24 History gabapentin 800 mg tablet 800 mg PO TID 02/28/24 03/23/24 History ondansetron 8 mg disintegrating 8 mg PO Q8 PRN N/V 02/28/24 03/23/24 History tablet oxycodone 5 mg tablet 5 mg PO .EVERY 4-6 HRS PRN Pain 02/28/24 03/23/24 History magnesium oxide 400 mg PO DAILY #14 tabs 03/01/24 03/23/24 Rx insulin NPH isoph U-100 human 100 15 unit (0.15 mL) subcut .COMPLEX 03/23/24 03/23/24 Rx unit/mL (3 mL) subcutaneous pen #15 mL (Humulin N NPH U-100 Insulin KwikPen) Past Med/Surg History Problem List (Updated 04/22/24 @ 17:02 by Melvin Calderon, PhD, DO) Acute hypoxemic respiratory failure Osteoarthritis of left knee Acute pain due to injury Pain Hyponatremia Chronic post-traumatic stress disorder (PTSD) after combat Diarrhea Dyspnea and respiratory abnormalities Anxiety associated with cancer diagnosis Palliative care by specialist Diffuse pain Pneumonia (Acute) Hypoxia (Acute) Hypercalcemia Hypoglycemia (Acute) Pain in right testicle (Acute) Testicular pain, right Metastatic lung cancer (metastasis from lung to other site) Lesion of adrenal gland Anemia Vitamin D deficiency Stage 3b chronic kidney disease Constipation JAY on CPAP Neurogenic claudication due to lumbar spinal stenosis Tobacco use Hypomagnesemia Elevated troponin Hypervolemia LUQ abdominal pain (Acute) Hypoxia (Acute) Leukocytosis (Acute) Pneumonia (Acute) Vomiting (Acute) Hypertension (Acute) Acute kidney injury (Acute) Acidosis, lactic (Acute) Acute hypotension (Acute) Acute dehydration (Acute) Solitary pulmonary nodule (Chronic) Depression Chest pain Lung cancer Stroke Immediately after spinal fusion 04/2019---went into kidney failure at the same time > only deficit is sometimes he "dribbles out of the left side of his mouth" Peripheral arterial occlusive disease "total occlusion of the SFA and the left mid thigh area with reconstitution with collaterals and monophasic flow bilateral below knee area" per cardiology office visit note 03/2019 Hyperlipidemia GERD (gastroesophageal reflux disease) controlled DM type 2 (diabetes mellitus, type 2) CAD (coronary artery disease) angioplasty/KARRIE to pRCA (2014) Synergy stent (11/03/2020) after failed stress test Chronic obstructive pulmonary disease CKD (chronic kidney disease), stage III Pulmonary nodule 1 cm or greater in diameter (Chronic 08/25/20) Medical History Acute and chronic respiratory failure with hypercapnia Hyperkalemia Urinary retention Hypoxia Somnolence Arthritis Urinary problem urinary hesitancy Spinal stenosis Diabetes IDDM Sleep apnea awaiting CPAP Hypertension Carotid arterial disease "no ICA stenosis.. severe left ECA stenosis" per cardiology office visit note 03/2019 > follows with Dr. Reyes in [place] Interstitial lung disease Surgical History History of elbow surgery right History of melanoma excision History of lumbar spinal fusion L5-S1 decompression/fusion (09/17/19): Grade view 2, Glidescope#3, ETT 8.0 at [facility] Status post lumbar surgery History of arthroscopy of right shoulder History of colonoscopy History of tonsillectomy History of hernia surgery X2 History of thumb surgery R/L History of repair of left rotator cuff History of cardiac cath stent x1 (2014) Synergy stent x1 (11/03/2020) Family History Mother Diabetes Heart disease Cancer Lung cancer Father Cancer Oral cancer Other No family history of adverse response to anesthesia Social History Smoking Status: Never smoker Tobacco Type: Cigarettes Cigarettes Per Day: A pack; Second Hand Exposure: No; Do You Dip or Chew Tobacco: No; Hx Alcohol Use: No Hx Substance Use: No Preferred Language: Cuban Communication Ability: Effective Visual Impairment: No Limitations Hearing Ability: Normal Junior Software 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 Physical Exam Physical Exam: In General: In general this is a pleasant 78-year-old male who is alert and oriented x 3 at the time of my examination. Approximately 20 minutes after his amp of D50 his blood glucose is still 71. Will give an additional amp of D50. 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 HEENT: Normocephalic atraumatic pupils are equal round and reactive to light bilaterally. No scleral icterus no conjunctival injection external auditory canals are patent septum is in the midline nose is without discharge oral mucosa is pink and moist without lesion. NECK: Supple no rigidity no lymphadenopathy no thyromegaly no carotid bruits no JVD no masses. HEART: Regular rate and rhythm I do not appreciate any ectopy or rub. No murmur. LUNGS: Lungs are coarse bilaterally with bilateral wheezes but globally diminished in the left lower and midlung casey with rhonchi. ABDOMEN: Soft nontender, no rebound, no peritoneal signs, positive bowel sounds, no appreciable organomegaly. EXTREMITIES: Intact. Obvious left knee effusion. No cutaneous changes of erythema or warmth to the touch. NEUROLOGICAL: Cranial nerves II through XII are grossly intact with no focal deficit elicited upon examination. Results & Data Results & Data Vital Signs (Past 12 Hours) Vital Signs Temp Pulse Pulse Resp BP BP Pulse Ox 04/22/24 16:52 79 18 121/51 L 97 04/22/24 16:21 85 16 128/58 L 95 04/22/24 16:00 130/56 L 04/22/24 16:00 130/56 L 04/22/24 16:00 86 17 95 04/22/24 15:49 86 18 153/61 H 97 04/22/24 15:48 86 04/22/24 15:45 152/61 H 04/22/24 15:45 152/61 H 04/22/24 15:45 89 23 98 04/22/24 15:42 87 25 H 98 04/22/24 15:30 88 20 97 04/22/24 15:30 161/90 H 04/22/24 15:30 161/90 H 04/22/24 15:30 161/90 H 04/22/24 15:30 18 04/22/24 15:28 18 04/22/24 15:27 89 22 97 04/22/24 15:15 120/64 04/22/24 15:15 120/64 04/22/24 15:15 120/64 04/22/24 15:15 89 19 92 04/22/24 15:12 89 22 89 L 04/22/24 15:06 90 18 90 04/22/24 15:00 121/57 L 04/22/24 15:00 121/57 L 04/22/24 14:51 92 H 21 89 L 04/22/24 14:38 89 L 04/22/24 14:38 16 88 L 04/22/24 14:24 18 04/22/24 14:12 37.0 C 93 H 18 129/53 L 99 O2 Del Method O2 Flow Rate 04/22/24 16:52 04/22/24 16:21 Oxymask 4 04/22/24 16:00 04/22/24 16:00 04/22/24 16:00 04/22/24 15:49 04/22/24 15:48 04/22/24 15:45 04/22/24 15:45 04/22/24 15:45 04/22/24 15:42 04/22/24 15:30 04/22/24 15:30 04/22/24 15:30 04/22/24 15:30 04/22/24 15:30 04/22/24 15:28 04/22/24 15:27 04/22/24 15:15 04/22/24 15:15 04/22/24 15:15 04/22/24 15:15 04/22/24 15:12 04/22/24 15:06 04/22/24 15:00 04/22/24 15:00 04/22/24 14:51 04/22/24 14:38 Nasal Cannula 6 04/22/24 14:38 Nasal Cannula 6 04/22/24 14:24 04/22/24 14:12 Code Status & VTE Plan Code Status Full code. I personally discussed with patient at the bedside with his . VTE Prophylaxis Plan VTE Prophylaxis will be ordered: Yes PG Care Time/CCT Total # of Minutes Spent Total Time Spent with Patient: Total time spent is greater than 50% in coordination of care (as documented) at patient's floor/unit and/or counseling patient: Coding Level of Care Code 00546 INT INP/OBS CARE 3/75MIN Diagnoses Acute hypoxemic respiratory failure J96.01
--- NOTE | 2024-04-22 17:37 | Orthopedic Consultation ---
Date of Service April 22, 2024 Assessment & Plan (1) Osteoarthritis of left knee: (2) Effusion, left knee: (3) Pseudogout of left knee: (4) Septic joint of left knee joint: Plan 78-year-old male with multiple medical comorbidities but most pertinently adenocarcinoma lung and kidney, DM2 requiring insulin, and acute hypoxemic respiratory failure admitted after positive culture on a knee aspiration for subacute effusion. Found to have pseudogout and rare Klebsiella on the asp irate. I explained to the patient and his and admitting hospitalist that we should treat this as a deep joint infection. He can be treated nonoperatively by antibiotic therapy and serial aspiration. For more definitive care, he would benefit from a knee arthroscopic irrigation and debridement. This does not need to be urgent because he already has end-stage osteoarthritis. Antibiotics are the urgency for this admission. I recommended admission and medical optimization and consideration of general anesthesia for his knee arthroscopic irrigation debridement. Recommend infectious disease consultation for antibiotic management, particular in the case that we cannot get him healthy enough to undergo surgical management of this potential septic knee. In the interim, he can be treated with continued pain management and IV antibiotics. Compression and ice may help with pain but not mandatory. He can be weightbearing and range of motion as tolerated. Will tentatively plan for irrigation and debridement on Saturday, depending on medical optimization and clearance and anesthesia consultation. Will see how he responds additional antibiotic therapy History of Present Illness Reason for Consultation: Left knee recurrent effusion, possibly septic Requesting Physician: . 78-year-old male previously admitted to [facility] where he experienced some knee pain and swelling. He was offered knee aspiration and potentially steroid injection amidst multiple other medical comorbidities and active diagnoses. He avoided the aspiration at that point. He was transitioned to [facility] for inpatient rehabilitation after his inpatient stay at [facility]. He followed up for his knee with Dr. René Odonnell as an outpatient. At that visit, they did aspirate the knee due to his significant pain and swelling. The aspirate showed pseudogout and a delayed culture response with Klebsiella, rare. He was returned to the [facility] emergency room because of worsening pain and the concern for the bacterial culture from his knee aspiration. The patient was accompanied by his today in the ER. She helped with some of the history. He says his knee pain seems only to be worsening. His said he had a history of his elbow sepsis treated by Dr. Patricio with [facility] in 2011. He had a good outcome after surgical treatment. He has not been well lately and is recently finished chemotherapy in February. He has not had any treatments for about a month. He is supposed undergo radiation therapy for his renal cell carcinoma. There is concern for nodules in his lung, as well. They are waiting for clarity on that with his oncologist. He is having some more difficulty with breathing and keeping his oxygenation saturation. He was admitted to medicine. Allergies Allergy/AdvReac Type Severity Reaction Status Date / Time adhesive Allergy Mild Silk/plastic Verified 03/23/24 09:58 adhesive tape (redness, blistering) Sulfa (Sulfonamide AdvReac Intermediate nausea & Verified 03/23/24 09:58 Antibiotics) vomiting Home Medications Medication Instructions Recorded Confirmed Type pantoprazole 40 mg tablet,delayed 40 mg PO BID 12/23/18 04/22/24 History release (Protonix) CPAP Machine #1 04/22/19 04/22/24 Rx CPAP Supplies #1 04/22/19 04/22/24 Rx CPAP Machine #1 08/10/19 04/22/24 Rx albuterol sulfate 90 mcg/actuation 2 puffs inhalation Q6H PRN 08/10/19 04/22/24 Rx aerosol inhaler (Ventolin HFA) shortness of breath or wheezing #8.5 grams citalopram 40 mg tablet (Celexa) 60 mg PO QAM 04/04/21 04/22/24 History aspirin 325 mg tablet 325 mg PO DAILY 07/27/21 04/22/24 History benzonatate 200 mg capsule 200 mg PO Q8H PRN cough 01/08/23 04/22/24 History insulin degludec 100 unit/mL (3 34 unit subcut QAM diabetes 01/08/23 04/22/24 History mL) subcutaneous pen (Tresiba FlexTouch U-100 insulin) linaclotide 290 mcg capsule 290 mcg PO DAILY 01/08/23 04/22/24 History (Linzess) nitroglycerin 0.4 mg sublingual 0.4 mg sublingual Q5M PRN Chest 01/08/23 04/22/24 History tablet (Nitrostat) Pain fluticasone furoate 50 1 inh inhalation DAILY 07/30/23 04/22/24 History mcg-vilanterol 25 mcg/dose inhalation powder (Breo Ellipta) clopidogrel 75 mg tablet 75 mg PO DAILY 02/28/24 04/22/24 History gabapentin 800 mg tablet 800 mg PO TID 02/28/24 04/22/24 History ondansetron 8 mg disintegrating 8 mg PO Q8 PRN N/V 02/28/24 04/22/24 History tablet oxycodone 5 mg tablet 5 mg PO .EVERY 4-6 HRS PRN Pain 02/28/24 04/22/24 History magnesium oxide 400 mg PO DAILY #14 tabs 03/01/24 04/22/24 Rx insulin NPH isoph U-100 human 100 15 unit (0.15 mL) subcut .COMPLEX 03/23/24 04/22/24 Rx unit/mL (3 mL) subcutaneous pen #15 mL (Humulin N NPH U-100 Insulin KwikPen) insulin aspart 10 unit subcut AC 04/22/24 04/22/24 History (niacinamide)(U-100) 100 unit/mL(3 mL) subcutaneous pen (Fiasp FlexTouch U-100 Insulin) rosuvastatin 40 mg tablet 40 mg PO DAILY 04/22/24 04/22/24 History Past Med/Surg History Problem List (Updated 04/22/24 @ 17:38 by Kvng Kumari MD) Septic joint of left knee joint Pseudogout of left knee Effusion, left knee Acute hypoxemic respiratory failure Osteoarthritis of left knee Acute pain due to injury Pain Hyponatremia Chronic post-traumatic stress disorder (PTSD) after combat Diarrhea Dyspnea and respiratory abnormalities Anxiety associated with cancer diagnosis Palliative care by specialist Diffuse pain Pneumonia (Acute) Hypoxia (Acute) Hypercalcemia Hypoglycemia (Acute) Pain in right testicle (Acute) Testicular pain, right Metastatic lung cancer (metastasis from lung to other site) Lesion of adrenal gland Anemia Vitamin D deficiency Stage 3b chronic kidney disease Constipation JAY on CPAP Neurogenic claudication due to lumbar spinal stenosis Tobacco use Hypomagnesemia Elevated troponin Hypervolemia LUQ abdominal pain (Acute) Hypoxia (Acute) Leukocytosis (Acute) Pneumonia (Acute) Vomiting (Acute) Hypertension (Acute) Acute kidney injury (Acute) Acidosis, lactic (Acute) Acute hypotension (Acute) Acute dehydration (Acute) Solitary pulmonary nodule (Chronic) Depression Chest pain Lung cancer Stroke Immediately after spinal fusion 04/2019---went into kidney failure at the same time > only deficit is sometimes he "dribbles out of the left side of his mouth" Peripheral arterial occlusive disease "total occlusion of the SFA and the left mid thigh area with reconstitution with collaterals and monophasic flow bilateral below knee area" per cardiology office visit note 03/2019 Hyperlipidemia GERD (gastroesophageal reflux disease) controlled DM type 2 (diabetes mellitus, type 2) CAD (coronary artery disease) angioplasty/KARRIE to pRCA (2014) Synergy stent (11/03/2020) after failed stress test Chronic obstructive pulmonary disease CKD (chronic kidney disease), stage III Pulmonary nodule 1 cm or greater in diameter (Chronic 08/25/20) Medical History Acute and chronic respiratory failure with hypercapnia Hyperkalemia Urinary retention Hypoxia Somnolence Arthritis Urinary problem urinary hesitancy Spinal stenosis Diabetes IDDM Sleep apnea awaiting CPAP Hypertension Carotid arterial disease "no ICA stenosis.. severe left ECA stenosis" per cardiology office visit note 03/2019 > follows with Dr. Reyes in [place] Interstitial lung disease Surgical History History of elbow surgery right History of melanoma excision History of lumbar spinal fusion L5-S1 decompression/fusion (09/17/19): Grade view 2, Glidescope#3, ETT 8.0 at [facility] Status post lumbar surgery History of arthroscopy of right shoulder History of colonoscopy History of tonsillectomy History of hernia surgery X2 History of thumb surgery R/L History of repair of left rotator cuff History of cardiac cath stent x1 (2014) Synergy stent x1 (11/03/2020) Family History Mother Diabetes Heart disease Cancer Lung cancer Father Cancer Oral cancer Other No family history of adverse response to anesthesia Social History Smoking Status: Never smoker Tobacco Type: Cigarettes Cigarettes Per Day: A pack; Second Hand Exposure: No; Do You Dip or Chew Tobacco: No; Hx Alcohol Use: No Hx Substance Use: No Preferred Language: Zambian Communication Ability: Effective Visual Impairment: No Limitations Hearing Ability: Normal Safety Deposit Boxes Custodian Required: No Beliefs That Will Affect Care: None Current Living Situation: Spouse Current Living Situation Comment: Home current occupational status: retired Feels Safe at Home: Yes Childhood Exposure to Second-Hand Smoke: Yes Diet Comment: food choices with less carbs, uses sugar substitute Assistive Devices: None Review of Systems All systems reviewed & are unremarkable except as noted in HPI & below. Physical Exam He was on nasal cannula oxygen. Vital stable. LLE: Symmetric bilateral lower extremity mild edema. The left knee shows no erythema. It is mildly and diffusely tender. There is an obvious moderate effusion. He can activate his quad and perform a straight leg raise with slight flexion contracture/lag. He can flex to about 100 degrees, limited by discomfort. He can actively return to full near full extension without assistance and against gravity. Neuro vastly intact distally. Does not have the picture of an aggressive septic arthritis. Constitutional no acute distress and not intoxicated appearing Respiratory normal respiratory effort; no labored breathing Cardiovascular Extremities: normal capillary refill Results & Data Results & Data Laboratory Results H & H 04/22/24 Range/Units 14:50 Hgb 7.1 L (14.0-18.0) g/dl Hct 21.5 L (42.0-52.0) % Coagulation 04/22/24 Range/Units 14:50 INR 1.0 (0.9-1.1) Laboratory Tests 04/22/24 04/22/24 04/22/24 14:50 14:50 15:08 WBC 4.21 L Plt Count 196 Neut % (Auto) 74.0 Lymph # (Auto) 0.67 L VBG pH 7.43 H Creatinine 1.49 H Glucose 44 L* Albumin 2.3 L April 21, 2024 left knee aspirate synovial count 17,000. Rare Klebsiella on culture day 1. Diagnostic Findings 04/21/2024 left knee radiographs demonstrate end-stage osteoarthritis with [id number] articulation in the medial compartment. PG Care Time/CCT Total # of Minutes Spent Total Time Spent with Patient: Total time spent is greater than 50% in coordination of care (as documented) at patient's floor/unit and/or counseling patient: Coding Level of Care Code 44813 IN/OBS CONSULT LVL 4,60M (57 - DECISION FOR SURGERY) Diagnoses Primary osteoarthritis of left knee M17.12 Osteoarthritis type: primary Effusion, left knee M25.462 Pseudogout of left knee M11.262 Septic joint of left knee joint M00.9 (1) Osteoarthritis of left knee Osteoarthritis type: primary Qualified Code(s): M17.12 - Unilateral primary osteoarthritis, left knee
[2024-04-22 17:45] LABS: Troponin I High Sensitivity 41.6 pg/ml (0-20)
[2024-04-22 17:57] LABS: Hematocrit (blood only) 21.4 % (42.0-52.0); Hemoglobin 6.8 g/dl (14.0-18.0)
[2024-04-22 18:01] LABS: Appearance Synovial Fluid Cloudy; Color Synovial Fluid Amber; Mononuclear WBC Synovial 5.8 %; Polynuclear WBC Synovial 94.2 %; RBC Synovial Fluid Auto 15000 /uL; Source Synovial Fluid Left Knee; WBC Synovial Fluid Auto 37125 /ul (0-200)
--- NOTE | 2024-04-22 19:13 | Pharmacy Report ---
Pharmacy PK ABX Note - Date of Service April 22, 2024 - Assessment and Plan Assessment 78 year old M receiving vancomycin and cefepime for potential pneumonia/joint infection. Pulmonology consulted for potential thoracentesis. Ortho also consulted as patient s/p arthrocentesis yesterday. PMHx significant for lung/renal cell carcinoma, COPD, DM. Blood and knee cultures pending. Plan Vancomycin * Loading dose: 2000 mg IV x 1 * Maintenance dose: 1500 mg IV every 24 hours * Regimen is predicted to achieve target AUC/CHINTAN of 400-600 mg/L.hr * Plan to collect vancomycin level if continued >48 hours Pharmacy will continue to follow and will adjust dose/frequency as necessary. Thank you. Pharmacy has transitioned to AUC monitoring for vancomycin. AUC/CHINTAN is the preferred PK/PD target and is associated with decreased risk of nephrotoxicity compared to traditional trough targets.
[2024-04-22] MEDS: oxyCODONE HCL IR 5 MG TAB (IMMEDIATE RELEASE) PO PRN (19:49)
[2024-04-22] MEDS: ALBUT/IPRATROP 3MG/0.5MG NEB 3 ML VIAL NEB SCH (20:18)
[2024-04-22] MEDS: VANCOMYCIN HCL 2,000 MG in SODIUM CHLORIDE 0.9% 500 ML IV ONE (20:48)
[2024-04-22] MEDS: PANTOprazole 40 MG TAB PO SCH (20:48)
[2024-04-22] MEDS: GABAPENTIN 600 MG TAB PO SCH (20:48)
[2024-04-23 03:32] LABS: Appearance Urine Clear (Clear); Bacteria Urine Automated None Seen (None Seen); Bilirubin Urine Negative (Negative); Blood Urine Negative (Negative); Cast Urine Automated 0-2 /lpf (0-2); Color Urine Yellow; Epithelial Cell Urine Auto 0-2 /hpf (0-2); Glucose Urine UA Trace (Negative); Ketones Urine Negative (Negative); Leukocyte Esterase Urine Negative (Negative); Nitrite Urine Negative (Negative); Protein Urine 2+ (Negative); RBC Urine Automated 0-2 /hpf (0-2); Specific Gravity Urine 1.015 (1.000-1.030); Urobilinogen Urine Negative (Negative); WBC Urine Automated 0-5 /hpf (0-5); pH Urine 5.5 (4.5-7.5)
[2024-04-23] MEDS: CEFEPIME 2000MG 2,000 MG/20 ML SYR IV SCH (03:53)
[2024-04-23] MEDS ORDERED: VANCOMYCIN HCL 1,500 MG in SODIUM CHLORIDE 0.9% 500 ML IV SCH (05:00)
[2024-04-23 07:07] LABS: Eosinophils # (auto) 0.04 K/uL (0.00-0.50); Eosinophils % (auto) 0.8 %; Hematocrit (blood only) 27.6 % (42.0-52.0); Hemoglobin 9.2 g/dl (14.0-18.0); Immature Granulocytes # (auto) 0.02 K/uL (0.01-0.20); Immature Granulocytes % (auto) 0.4 %; Lymphocytes # (auto) 1.55 K/uL (1.20-3.40); Lymphocytes % (auto) 29.7 %; Mean Corpuscular Hemoglobin 32.5 pg (25.0-34.0); Mean Corpuscular Hgb Conc 33.3 g/dL (32.0-36.0); Mean Corpuscular Volume 97.5 fL (80.0-100.0); Mean Platelet Volume 9.9 fL (9.4-12.4); Monocytes # (auto) 0.44 K/uL (0.11-0.59); Monocytes % (auto) 8.4 %; Neutrophils # (auto) 3.17 K/uL (1.40-6.50); Neutrophils % (auto) 60.7 %; Platelet Count 181 K/uL (130-400); RDW Coefficient of Variation 19.2 % (11.5-14.5); RDW Standard Deviation 65.5 fL (36.4-46.3); Red Blood Count 2.83 M/uL (4.70-6.10); White Blood Count 5.22 K/ul (4.8-10.8)
[2024-04-23 07:18] LABS: Albumin Globulin Ratio 0.8 (0.9-2); Albumin Level 2.3 gm/dl (3.4-5.0); BUN Creatinine Ratio 21.2 (10-20); Bilirubin,Total 0.6 mg/dl (0.2-1.0); Calcium 8.4 mg/dl (8.6-10.3); Chol HDL Ratio 1.8 (0-5); Creatinine Clr Calc Pharmacy 49.9 ml/min; Globulin 2.9 gm/dl (2.5-4.0); Magnesium 1.8 mg/dl (1.7-2.4); Potassium 4.5 mmol/L (3.5-5.1); Total Protein 5.2 gm/dl (6.0-8.3)
[2024-04-23 07:31] LABS: Thyroid Stimulating Hormone 1.89 uIu/ml (0.300-4.500)
[2024-04-23] MEDS: LINACLOTIDE 145 MCG CAPSULE PO SCH (08:06)
[2024-04-23] MEDS: ROSUVASTATIN CALCIUM 20 MG TAB PO SCH (08:07)
[2024-04-23] MEDS: CITALOPRAM 20 MG TAB PO SCH (08:07)
[2024-04-23] MEDS: MAGNESIUM OXIDE 400 MG TAB PO SCH (08:07)
[2024-04-23 08:58] LABS: Estimated Average Glucose 163 mg/dl; Hemoglobin A1C 7.3 % (4.5-5.6)
--- NOTE | 2024-04-23 10:29 | Orthopedic Progress Note ---
Date of Service April 23, 2024 Assessment & Plan (1) Osteoarthritis of left knee: (2) Pseudogout of left knee: (3) Effusion, left knee: (4) Septic joint of left knee joint: Plan Patient seems to be experiencing some mild improvement. Further explained to the patient that at the moment we are continuing nonoperative treatment with antibiotic therapy and potential serial aspiration. However, it is felt that he may benefit from an arthroscopic irrigation and debridement procedure. With this noted, he will need to be optimized medically. On another note, if the infectious disease service feels that the patient can be managed with antibiotic treatment alone, then we may consider foregoing the surgical intervention. At the moment, we will consult anesthesia for assistance with medical optimization and surgical clearance for possible surgery Saturday, 04/24 vs. Saturday, 04/27. Continue current pain management regimen. Continue compression and application of ice as needed. Patient may remain WB and ROM as tolerated on the LLE. Subjective Patient says that his left knee pain is slightly improved today compared to yesterday. He understands that, taking into consideration his multiple medical comorbidities, we are attempting to optimize him for potential arthroscopic surgery tomorrow. He is currently on cefepime and vancomycin IV antibiotics. Patient admits to 1 major and 2 minor heart attacks in the past. Review of Systems All systems reviewed & are unremarkable except as noted in HPI & below. Physical Exam GENERAL: AA&Ox3, NAD. Pleasant, affect is calm. Sitting in bed w/ mask rebreather in place. RESPIRATORY: Mild difficulty with respiratory effort, but with no signs of distress. CARDIOVASCULAR: 2+ left pretibial pitting edema. No pitting edema noted to RLE. SKIN: [place], warm and dry. LLE: Symmetric bilateral lower extremity mild edema. No erythema noted to left knee. Palpable warmth noted, possibly abnormal. Mild effusion/edema to left knee, which is diffusely tender. + quad activation and SLR w/ slight flexion contracture/lag. Flexion 100 degrees, limited by discomfort/apprehension. Passive left knee extension does not seem to cause any additional pain. NVI distally. Calf soft, NT. PT pulse intact, but difficult to palpate. Results & Data Results & Data Laboratory Results . Diagnostic Findings . PG Care Time/CCT Total # of Minutes Spent Total Time Spent with Patient: Total time spent is greater than 50% in coordination of care (as documented) at patient's floor/unit and/or counseling patient: Coding [place] [address] SUB INP/OBS CARE 50MIN Patient Type Established History Detailed Exam Detailed Medical Decision Making Moderate Complexity Diagnoses Primary osteoarthritis of left knee M17.12 Osteoarthritis type: primary Pseudogout of left knee M11.262 Effusion, left knee M25.462 Septic joint of left knee joint M00.9 (1) Osteoarthritis of left knee Osteoarthritis type: primary Qualified Code(s): M17.12 - Unilateral primary osteoarthritis, left knee
--- NOTE | 2024-04-23 10:42 | Anesthesiology Consultation ---
Date of Service April 23, 2024 Assessment & Plan (1) Encounter for pre-operative examination: (2) Paroxysmal A-fib: Plan Patient appears to have been on plavix so for a week we would not be able to do a spinal which may be advantageous due to his lung disease and plural effusion. If the procedure is more urgent than that we would do a general anesthetic with some risk of pulmonary complications but it appears today he is okay on only 2 liters of oxygen so if not worsened likely would be ok for an urgent relatively low impact procedure tomorrow. Chart Review Chart Review: Acceptable Risk for Surgery (to be evaluated for changes tomorrow pre-op) History Height/Weight Height: 5 ft 11 in Weight: 86.9 kg Allergies Allergy/AdvReac Type Severity Reaction Status Date / Time adhesive Allergy Mild Silk/plastic Verified 03/23/24 09:58 adhesive tape (redness, blistering) Sulfa (Sulfonamide AdvReac Intermediate nausea & Verified 03/23/24 09:58 Antibiotics) vomiting Medications Home Medications Medication Instructions Recorded Confirmed Last Taken pantoprazole 40 mg tablet,delayed 40 mg PO BID 12/23/18 04/22/24 05/02/22 release (Protonix) CPAP Machine #1 04/22/19 04/22/24 Unknown CPAP Supplies #1 04/22/19 04/22/24 Unknown CPAP Machine #1 08/10/19 04/22/24 Unknown albuterol sulfate 90 mcg/actuation 2 puffs inhalation Q6H PRN 08/10/19 04/22/24 Unknown aerosol inhaler (Ventolin HFA) shortness of breath or wheezing #8.5 grams citalopram 40 mg tablet (Celexa) 60 mg PO QAM 04/04/21 04/22/24 05/02/22 aspirin 325 mg tablet 325 mg PO DAILY 07/27/21 04/22/24 05/02/22 benzonatate 200 mg capsule 200 mg PO Q8H PRN cough 01/08/23 04/22/24 Unknown insulin degludec 100 unit/mL (3 34 unit subcut QAM diabetes 01/08/23 04/22/24 Unknown mL) subcutaneous pen (Tresiba FlexTouch U-100 insulin) linaclotide 290 mcg capsule 290 mcg PO DAILY 01/08/23 04/22/24 Unknown (Linzess) nitroglycerin 0.4 mg sublingual 0.4 mg sublingual Q5M PRN Chest 01/08/23 04/22/24 Unknown tablet (Nitrostat) Pain fluticasone furoate 50 1 inh inhalation DAILY 07/30/23 04/22/24 Unknown mcg-vilanterol 25 mcg/dose inhalation powder (Breo Ellipta) clopidogrel 75 mg tablet 75 mg PO DAILY 02/28/24 04/22/24 Unknown gabapentin 800 mg tablet 800 mg PO TID 02/28/24 04/22/24 Unknown ondansetron 8 mg disintegrating 8 mg PO Q8 PRN N/V 02/28/24 04/22/24 Unknown tablet oxycodone 5 mg tablet 5 mg PO .EVERY 4-6 HRS PRN Pain 02/28/24 04/22/24 Unknown magnesium oxide 400 mg PO DAILY #14 tabs 03/01/24 04/22/24 Unknown insulin NPH isoph U-100 human 100 15 unit (0.15 mL) subcut .COMPLEX 03/23/24 04/22/24 Unknown unit/mL (3 mL) subcutaneous pen #15 mL (Humulin N NPH U-100 Insulin KwikPen) insulin aspart 10 unit subcut AC 04/22/24 04/22/24 Unknown (niacinamide)(U-100) 100 unit/mL(3 mL) subcutaneous pen (Fiasp FlexTouch U-100 Insulin) rosuvastatin 40 mg tablet 40 mg PO DAILY 04/22/24 04/22/24 Unknown Active Medications Generic Name Dose Route Start Last Admin Trade Name Freq PRN Reason Stop Dose Admin Albuterol 3 ml 04/22/24 19:00 04/23/24 10:50 Albut/Ipratrop 3mg/0.5mg Neb 3 Ml Vial NEB 05/22/24 18:59 3 ml QIDR MONI Administration Protocol Citalopram Hydrobromide 60 mg 04/23/24 09:00 04/23/24 08:07 Citalopram 20 Mg Tab PO 05/23/24 08:59 60 mg QAM MONI Administration Gabapentin 600 mg 04/22/24 21:00 04/23/24 08:06 Gabapentin 600 Mg Tab PO 05/22/24 20:59 600 mg TID MONI Administration Cefepime HCl 2,000 mg in 20 mls @ 5 mls/min 04/23/24 04:00 04/23/24 03:53 Maxipime 2000mg IV 04/30/24 03:59 5 mls/min Q12H MONI Administration Protocol Linaclotide 290 mcg 04/23/24 09:00 04/23/24 08:06 Linaclotide 145 Mcg Capsule PO 05/23/24 08:59 290 mcg DAILY MONI Administration Magnesium Oxide 400 mg 04/23/24 09:00 04/23/24 08:07 Magnesium Oxide 400 Mg Tab PO 05/23/24 08:59 400 mg DAILY MONI Administration Miscellaneous 1 each 04/23/24 00:00 04/23/24 07:12 Order Awaiting Action Breo Ellipta 50_25 N/A 05/23/24 00:00 Not Given QS MONI Oxycodone HCl 5 mg 04/22/24 18:20 04/22/24 19:49 Oxycodone Hcl Ir 5 Mg Tab (Immediate Release) PO 05/06/24 18:19 5 mg Q6 PRN Administration Pain Pantoprazole Sodium 40 mg 04/22/24 21:00 04/23/24 08:06 Pantoprazole 40 Mg Tab PO 05/22/24 20:59 40 mg BID MONI Administration Rosuvastatin Calcium 40 mg 04/23/24 09:00 04/23/24 08:07 Rosuvastatin Calcium 20 Mg Tab PO 05/23/24 08:59 40 mg DAILY MONI Administration Past Medical History Medical History (Updated 04/23/24 @ 10:54 by Óscar Lyons MD) Paroxysmal A-fib Stage 3b chronic kidney disease Stroke Immediately after spinal fusion 04/2019---went into kidney failure at the same time > only deficit is sometimes he "dribbles out of the left side of his mouth" CAD (coronary artery disease) angioplasty/KARRIE to pRCA (2014) Synergy stent (11/03/2020) after failed stress test Acute and chronic respiratory failure with hypercapnia Hyperkalemia Urinary retention Hypoxia Somnolence Arthritis Urinary problem urinary hesitancy Spinal stenosis Diabetes IDDM Sleep apnea awaiting CPAP Hypertension Carotid arterial disease "no ICA stenosis.. severe left ECA stenosis" per cardiology office visit note 03/2019 > follows with Dr. Reyes in [place] Interstitial lung disease Past Family History Family History Mother Diabetes Heart disease Cancer Lung cancer Father Cancer Oral cancer Other No family history of adverse response to anesthesia Past Surgical History Surgical History History of elbow surgery right History of melanoma excision History of lumbar spinal fusion L5-S1 decompression/fusion (09/17/19): Grade view 2, Glidescope#3, ETT 8.0 at [facility] Status post lumbar surgery History of arthroscopy of right shoulder History of colonoscopy History of tonsillectomy History of hernia surgery X2 History of thumb surgery R/L History of repair of left rotator cuff History of cardiac cath stent x1 (2014) Synergy stent x1 (11/03/2020) Social History Smoking Status: Current every day smoker tobacco type: cigarettes Smoking cigarettes per day: A pack Do You Dip or Chew Tobacco: No Hx Alcohol Use: No Alcohol type: beer and hard liquor alcohol intake frequency: holidays/special occasions only Hx Substance Use: No substance use type: does not use Physical Exam Vital Signs Last Vital Signs Temp 36.6 C 04/23/24 07:29 Pulse 83 04/23/24 07:29 Resp 18 04/23/24 07:29 BP 153/76 H 04/23/24 07:29 Pulse Ox 94 04/23/24 07:29 O2 Del Method Oxymask 04/23/24 07:45 O2 Flow Rate 2 04/23/24 07:45 Testing Laboratory Results 04/23/24 06:27 04/23/24 06:27 PT 11.0 Seconds (9.0-12.0) 04/22/24 14:50 INR 1.0 (0.9-1.1) 04/22/24 14:50 APTT 23 Seconds (21-31) 04/22/24 14:50 Hemoglobin A1c 7.3 % (4.5-5.6) H 04/23/24 06:27 Urine Color Yellow 04/23/24 02:03 Urine Appearance Clear (Clear) 04/23/24 02:03 Urine pH 5.5 (4.5-7.5) 04/23/24 02:03 Ur Specific [place] 1.015 (1.000-1.030) 04/23/24 02:03 Urine Protein 2+ (Negative) H 04/23/24 02:03 Urine Glucose (UA) Trace (Negative) H 04/23/24 02:03 Urine Ketones Negative (Negative) 04/23/24 02:03 Urine Nitrite Negative (Negative) 04/23/24 02:03 Ur Leukocyte Esterase Negative (Negative) 04/23/24 02:03 Urine WBC (Auto) 0-5 /hpf (0-5) 04/23/24 02:03 Urine RBC (Auto) 0-2 /hpf (0-2) 04/23/24 02:03 U Hyaline Cast (Auto) 0-2 /lpf (0-2) 04/23/24 02:03 U Epithel Cells (Auto) 0-2 /hpf (0-2) 04/23/24 02:03 Urine Bacteria (Auto) None Seen (None Seen) 04/23/24 02:03 Blood Type AB Positive 04/22/24 17:01 Antibody Screen NEGATIVE 04/22/24 17:01 04/22/24 16:40 Gram Stain - Final Knee,Left Aerobic and Anaerobic Culture - Preliminary Klebsiella pneumoniae 04/23/24 04/23/24 04/22/24 07:55 05:25 23:41 POC Glucose 163 H 70 235 H Chest X-Ray Date: 04/22/24 Findings: + cardiomegaly, + pulmonary vascular congestion and + pleural effusion (small to moderate and increased from prior) Echocardiogram Date: 06/10/23 EF: 50-55% LV Function: normal Valvular Disease: + no significant valvular disease
[2024-04-23] MEDS ORDERED: ALBUT/IPRATROP 3MG/0.5MG NEB 3 ML VIAL NEB PRN (11:32)
[2024-04-23] MEDS: VANCOMYCIN HCL 1,500 MG in SODIUM CHLORIDE 0.9% 500 ML IV SCH (12:06)
--- NOTE | 2024-04-23 12:20 | Hospitalist Progress Note ---
Date of Service April 23, 2024 Assessment & Plan (1) Acute hypoxemic respiratory failure: Plan: Assessment: 1. Acute hypoxemic respiratory failure. Secondary to pleural effusion and PNA continue supplemenatl oxygen Will continue Vanc and Cefepime 2. Left lung pneumonia with moderate-sized parapneumonic effusion. Chest x ray shows worsening pleural effusion and consolidation Patient was treated for PNA a couple of weeks ago Continue IV vancomycin. IV cefepime. Sputum cultures. Nebulizer treatments. Pulmonology consultation for possible therapeutic and diagnostic thoracentesis. 3. Left knee effusion with possible septic joint. Orthopedics consulted. Dr. Kumari at the bedside during my exam. Status post arthrocentesis x 2. shows evidence of pseudogout Cultures growing klebsiella Continue IV cefepime and IV vancomycin. consult ID [id number]. Acute on chronic anemia. Symptomatic now with elevated troponins and hypoxemia. We will transfuse 2 units of packed red blood cells. He stools for occult blood. Hold off on antiplatelet and anticoagulation therapy. Will do iron studies prior to transfusion. Informed consent was obtained at the bedside with nursing staff present and form signed. 5. History of paroxysmal atrial fibrillation during his last admission. Was commenced on amiodarone at that time. Not on anticoagulation due to GI bleed 6. Diabetes mellitus type 2. Insulin requiring. Insulins will be held off on on this time given the significant hypoglycemia. Will check blood glucoses every 4 hours. On-call provider will be notified if less than 80 or greater than 180. 7. Hypoglycemia. Refractory. 44. After D50 still 71. Additional amp of D50. Every 4 hour blood glucose checks physician to be called less than 80 or greater than 180 at which time insulin therapy can be instituted cautiously. 8. Lung cancer with renal cell carcinoma. Under active treatment per the patient family. 9. COPD with exacerbation secondary to pneumonia. 10. Sleep apnea. Patient does not use CPAP currently at home. Although he does have a history of this. Will do continuous pulse ox. 11. History of depression. Continue home medication. 12. History of GERD. Will do Protonix twice daily. 13. History of dyslipidemia. Continue medication. 14. Mildly elevated troponins probably from demand ischemia due to hypoxemic respiratory failure. Trend. Echocardiogram. 15. History of carotid artery disease follows with vascular surgery in [place]. 15. Hypomagnesemia. Replaced. Will be rechecked. Plan: continue hospitalization Admission and Anticipated Discharge Date Admission Date: April 22, 2024 Subjective patient seen and examined, says he is still having some SOB and cough, with left knee pain Review of Systems Review of Systems: All systems reviewed are negative, apart from the ones contained in the history. Physical Exam Physical Exam: The patient is awake, alert and oriented 3, well developed and well nourished, normocephalic and atraumatic, lying in bed and in no acute distress. HEENT--PERRL, EOMI, mucous membranes and oropharynx mildly dry Neck--supple. No JVD. No bruits. Thyroid normal, trachea midline, no adenopathy. Heart--normal S1 and S2. No murmurs, rubs or gallops. Lungs--reduced air entry on auscultation Abdomen--normal bowel sounds and soft. Extremities--no cyanosis or clubbing. No edema. Dermatologic--normal skin turgor, normal color, no abnormal lymph nodes, no rash. Neurologic--cranial nerves II through XII grossly intact. Rheumatologic--normal range of motion. Psychiatric--normal affect. Results & Data Results & Data Vital Signs (Past 12 Hours) Vital Signs Temp Pulse Pulse Resp BP BP Pulse Ox 04/23/24 10:58 98.1 F 81 18 149/83 H 94 04/23/24 10:50 81 18 91 04/23/24 07:45 04/23/24 07:29 97.9 F 83 18 153/76 H 94 04/23/24 07:26 81 04/23/24 02:26 97.7 F 85 17 169/77 H 97 04/23/24 01:26 97.3 F L 75 17 140/72 96 04/23/24 00:26 97.3 F L 74 16 149/76 H 93 04/23/24 00:14 O2 Del Method O2 Flow Rate 04/23/24 10:58 Oxymask 04/23/24 10:50 Oxymask 4 04/23/24 07:45 Oxymask 2 04/23/24 07:29 Oxymask 2 04/23/24 07:26 04/23/24 02:26 3 04/23/24 01:26 3 04/23/24 00:26 3 04/23/24 00:14 Oxymask 3 PG Care Time/CCT Total # of Minutes Spent Total Time Spent with Patient: Total time spent is greater than 50% in coordination of care (as documented) at patient's floor/unit and/or counseling patient: Coding Level of Care Code 50507 SUB INP/OBS CARE 2/35MIN Diagnoses Acute hypoxemic respiratory failure J96.01 Time Spent (min) 35
--- NOTE | 2024-04-23 12:52 | XCELERA ---
[id number] \\[id number]
--- NOTE | 2024-04-23 13:46 | Infectious Disease Consult ---
Date of Consultation April 23, 2024 Assessment & Plan (1) Acute respiratory failure with hypoxia: (2) Loculated pleural effusion: (3) Septic joint of left knee joint: (4) Pseudogout of left knee: Plan This is a 78-year-old man with past medical history of metastatic adenocarcinoma of the lung (sp cycle 1 pembrolizumab on 01/22/24 / held cycle 3 and sp cycle 1 carboplatin, paclitaxel 01/29/24 and cycle 3 03/26/24), COPD, DM 2, hypertension recently admitted 03/31/24 - 04/11/24 for acute hypoxic respiratory failure thought to be 2/2 possible multifocal pneumonia, pancytopenia and diffuse bone and joint pain. He was treated with Zosyn inpatient and discharged on Augmentin. He also was noted to have a left knee effusion but declined aspiration and was treated with pain medication. He was discharged to in patient rehab He continued to complain of progressive Left knee pain/swelling and was seen by orthopedic outpatient. He underwent an arthrocentesis on 02/18 which showed 17, 584 WBC with 92% and grew rare Klebsiella pneumoniae and rare possible calcium pyrophosphate dihydrate crystals c/f pseudogout. He presents to the ED on 04/22/24 from inpatient rehab for evaluation of left knee septic arthritis. On admission, he is afebrile, pulse 93, blood pressure 129/53, hypoxic and required 6 L nasal cannula. Labs: WBC 4.21, hemoglobin 6.8, hematocrit 21.4, BUN 31, creatinine 1.49, procalcitonin 0.16. UA negative for pyuria. MRSA nasal screen negative. Repeat arthrocentesis shows 37, 125 WBC with 94% neutrophils, growing rare Klebsiella pneumoniae. Chest x-ray showed increased left pleural effusion and consolidation.. He is being followed by orthopedic surgery who initially recommended antibiotic therapy and serial aspiration, however they feel that he will benefit from an arthroscopic irrigation and debridement once medically optimized. He is scheduled for left knee arthroscopic debridement on 04/24/24. He is pending pulmonary evaluation for possible therapeutic and diagnostic thoracentesis. He is receiving cefepime and vancomycin. ID consulted for septic knee. No Tele-presenter available for live tele-visit at time of consult. E-consult completed via chart review Microbiology; Left knee synovial fluid culture 04/21/2024 rare Klebsiella pneumoniae (pansensitive) Blood culture 04/22/2024 NGTD Left knee synovial fluid culture 04/22 rare Klebsiella pneumoniae (prelim) MRSA nasal screen 04/23/2024 negative Antibiotics Cefepime 04/22ongoing Vancomycin 04/22ongoing #Left [place] knee septic arthritis with Klebsiella pneumoniae # Left Parapneumonic versus loculated pleural effusion status post ? pneumonia # Acute hypoxic respiratory failure # Metastatic lung adenocarcinoma on immunotherapy and chemotherapy -Status post pembrolizumab times 1, carboplatin/paclitaxel times cycle 1 and 3 Discussion. Agree with pending arthroscopic debridement for [place] left knee joint septic arthritis. Would also pursue diagnostic/therapeutic thoracentesis for parapneumonic vs loculated pleural effusion vs malignant effusion. Although Klebsiella pneumoniae from synovial fluid on 04/21/24 is pansensitive, would continue broad gram-negative coverage pending pleural fluid cultures. MRSA nares is negative so this makes a MRSA pulmonary infection less likely. Recommendations ; Continue cefepime 2 g IV every 12 hours (creatinine clearance 49.9) Discontinued vancomycin Follow-up pulmonary evaluation. If undergoes thoracentesis, will follow-up results. Follow-up pending or report and synovial fluid/tissue cultures. Thank you for this consult.ID will continue to follow. Concepcion Mayen MD, MPH Infectious Disease [facility] Call [phone] with questions Consultation Information This patient recommendation is based on a telemedicine consult request which was completed asynchronously through chart review and information provided by the primary physician. The patient was not seen or examined today. The evaluation is consultative in nature and all patient care and treatment decisions can either be accepted or rejected by the patient's primary hospital-based treating physician using their own independent medical judgment for their patient. Chemical Reclamation Equipment Operator contact information: Please call [facility] Call Center . (Phone Number For Physician Use Only) Time Spent Reviewing Chart: 31+ minutes History of Present Illness Reason for Consultation: Knee joint infection Requesting Physician: Melina Escalante MD Attending Physician: Melina Escalante MD History of Present Illness This is a 78-year-old man with past medical history of metastatic adenocarcinoma of the lung (sp cycle 1 pembrolizumab on 01/22/24 / held cycle 3 and sp cycle 1 carboplatin, paclitaxel 01/29/24 and cycle 3 03/26/24), COPD, DM 2, hypertension recently admitted 03/31/24 - 04/11/24 for acute hypoxic respiratory failure thought to be 2/2 possible multifocal pneumonia, pancytopenia and diffuse bone and joint pain. He was treated with Zosyn inpatient and discharged on Augmentin. He also was noted to have a left knee effusion but declined aspiration and was treated with pain medication. He was discharged to in patient rehab He continued to complain of progressive Left knee pain/swelling and was seen by orthopedic outpatient. He underwent an arthrocentesis on 02/18 which showed 17, 584 WBC with 92% and grew rare Klebsiella pneumoniae and rare possible calcium pyrophosphate dihydrate crystals c/f pseudogout. He presents to the ED on 04/22/24 from inpatient rehab for evaluation of left knee septic arthritis. On admission, he is afebrile, pulse 93, blood pressure 129/53, hypoxic and required 6 L nasal cannula. Labs: WBC 4.21, hemoglobin 6.8, hematocrit 21.4, BUN 31, creatinine 1.49, procalcitonin 0.16. UA negative for pyuria. MRSA nasal screen negative. Repeat arthrocentesis shows 37, 125 WBC with 94% neutrophils, growing rare Klebsiella pneumoniae. Chest x-ray showed increased left pleural effusion and consolidation.. He is being followed by orthopedic surgery who initially recommended antibiotic therapy and serial aspiration, however they feel that he will benefit from an arthroscopic irrigation and debridement once medically optimized. He is scheduled for left knee arthroscopic debridement on 04/24/24. He is pending pulmonary evaluation for possible therapeutic and diagnostic thoracentesis. He is receiving cefepime and vancomycin. ID consulted for septic knee. No Tele-presenter available for live tele-visit at time of consult. E-consult completed via chart review Allergies Allergy/AdvReac Type Severity Reaction Status Date / Time adhesive Allergy Mild Silk/plastic Verified 03/23/24 09:58 adhesive tape (redness, blistering) Sulfa (Sulfonamide AdvReac Intermediate nausea & Verified 03/23/24 09:58 Antibiotics) vomiting Home Medications Medication Instructions Recorded Confirmed Type pantoprazole 40 mg tablet,delayed 40 mg PO BID 12/23/18 04/22/24 History release (Protonix) CPAP Machine #1 ea 04/22/19 04/22/24 Rx CPAP Supplies #1 ea 04/22/19 04/22/24 Rx CPAP Machine #1 ea 08/10/19 04/22/24 Rx albuterol sulfate 90 mcg/actuation 2 puffs inhalation Q6H PRN 08/10/19 04/22/24 Rx aerosol inhaler (Ventolin HFA) shortness of breath or wheezing #8.5 grams citalopram 40 mg tablet (Celexa) 60 mg PO QAM 04/04/21 04/22/24 History aspirin 325 mg tablet 325 mg PO DAILY 07/27/21 04/22/24 History benzonatate 200 mg capsule 200 mg PO Q8H PRN cough 01/08/23 04/22/24 History insulin degludec 100 unit/mL (3 34 unit subcut QAM diabetes 01/08/23 04/22/24 History mL) subcutaneous pen (Tresiba FlexTouch U-100 insulin) linaclotide 290 mcg capsule 290 mcg PO DAILY 01/08/23 04/22/24 History (Linzess) nitroglycerin 0.4 mg sublingual 0.4 mg sublingual Q5M PRN Chest 01/08/23 04/22/24 History tablet (Nitrostat) Pain fluticasone furoate 50 1 inh inhalation DAILY 07/30/23 04/22/24 History mcg-vilanterol 25 mcg/dose inhalation powder (Breo Ellipta) clopidogrel 75 mg tablet 75 mg PO DAILY 02/28/24 04/22/24 History gabapentin 800 mg tablet 800 mg PO TID 02/28/24 04/22/24 History ondansetron 8 mg disintegrating 8 mg PO Q8 PRN N/V 02/28/24 04/22/24 History tablet oxycodone 5 mg tablet 5 mg PO .EVERY 4-6 HRS PRN Pain 02/28/24 04/22/24 History magnesium oxide 400 mg PO DAILY #14 tabs 03/01/24 04/22/24 Rx insulin NPH isoph U-100 human 100 15 unit (0.15 mL) subcut .COMPLEX 03/23/24 04/22/24 Rx unit/mL (3 mL) subcutaneous pen #15 mL (Humulin N NPH U-100 Insulin KwikPen) insulin aspart 10 unit subcut AC 04/22/24 04/22/24 History (niacinamide)(U-100) 100 unit/mL(3 mL) subcutaneous pen (Fiasp FlexTouch U-100 Insulin) rosuvastatin 40 mg tablet 40 mg PO DAILY 04/22/24 04/22/24 History Patient History Medical History (Updated 04/23/24 @ 16:43 by Mignon Cancino MD, [facility]) Paroxysmal A-fib Stage 3b chronic kidney disease Stroke Immediately after spinal fusion 04/2019---went into kidney failure at the same time > only deficit is sometimes he "dribbles out of the left side of his mouth" CAD (coronary artery disease) angioplasty/KARRIE to pRCA (2014) Synergy stent (11/03/2020) after failed stress test Acute and chronic respiratory failure with hypercapnia Hyperkalemia Urinary retention Hypoxia Somnolence Arthritis Urinary problem urinary hesitancy Spinal stenosis Diabetes IDDM Sleep apnea awaiting CPAP Hypertension Carotid arterial disease "no ICA stenosis.. severe left ECA stenosis" per cardiology office visit note 03/2019 > follows with Dr. Reyes in [place] Interstitial lung disease Surgical History History of elbow surgery right History of melanoma excision History of lumbar spinal fusion L5-S1 decompression/fusion (09/17/19): Grade view 2, Glidescope#3, ETT 8.0 at [facility] Status post lumbar surgery History of arthroscopy of right shoulder History of colonoscopy History of tonsillectomy History of hernia surgery X2 History of thumb surgery R/L History of repair of left rotator cuff History of cardiac cath stent x1 (2014) Synergy stent x1 (11/03/2020) Family History Mother Diabetes Heart disease Cancer Lung cancer Father Cancer Oral cancer Other No family history of adverse response to anesthesia Social History Smoking Status: Current every day smoker Tobacco Type: Cigarettes Cigarettes Per Day: A pack; Second Hand Exposure: No; Do You Dip or Chew Tobacco: No; Hx Alcohol Use: No Hx Substance Use: No Preferred Language: Slovenian Communication Ability: Effective Visual Impairment: No Limitations Hearing Ability: Normal Ice Delivery Driver Required: No Beliefs That Will Affect Care: None Current Living Situation: Spouse Current Living Situation Comment: Home current occupational status: retired Feels Safe at Home: Yes Childhood Exposure to Second-Hand Smoke: Yes Diet Comment: food choices with less carbs, uses sugar substitute Assistive Devices: Glasses and Walker Results & Data Vital Signs (Past 12 Hours) Vital Signs Temp Pulse Pulse Resp BP BP Pulse Ox 04/23/24 10:58 36.7 C 81 18 149/83 H 94 04/23/24 10:50 81 18 91 04/23/24 07:45 04/23/24 07:29 36.6 C 83 18 153/76 H 94 04/23/24 07:26 81 04/23/24 02:26 36.5 C 85 17 169/77 H 97 O2 Del Method O2 Flow Rate 04/23/24 10:58 Oxymask 04/23/24 10:50 Oxymask 4 04/23/24 07:45 Oxymask 2 04/23/24 07:29 Oxymask 2 04/23/24 07:26 04/23/24 02:26 3 Laboratory Results Laboratory Results - last 48 hr 04/22/24 04/22/24 04/22/24 14:50 15:08 15:22 WBC 4.21 L RBC 2.10 L Hgb 7.1 L Hct 21.5 L MCV 102.4 H MCH 33.8 MCHC 33.0 RDW Std Deviation 64.1 H RDW Coeff of Jono 17.8 H Plt Count 196 MPV 10.0 Immature Gran % (Auto) 0.2 Neut % (Auto) 74.0 Lymph % (Auto) 15.9 [place] % (Auto) 9.7 Eos % (Auto) 0.2 Baso % (Auto) 0.0 Neut # (Auto) 3.11 Lymph # (Auto) 0.67 L [place] # (Auto) 0.41 Eos # (Auto) 0.01 Baso # (Auto) 0.00 Immature Gran # (Auto) 0.01 Absolute Nucleated RBC 0.02 Nucleated RBC % (auto) 0.5 Toxic Granulation 1+ Dohle Bodies 1+ Polychromasia 1+ PT 11.0 INR 1.0 APTT 23 PTT Ratio 0.9 VBG pH 7.43 H VBG pCO2 40 VBG pO2 38 VBG HCO3 27 VBG O2 Saturation 68.0 VBG Base Excess 2.0 Sodium 141 Potassium 4.4 Chloride 108 H Carbon Dioxide 27 Anion Gap 6 BUN 31 H Creatinine 1.49 H Est Cr Clr Drug Dosing 49.1 eGFR 48.04 BUN/Creatinine Ratio 20.8 H Glucose 44 L* POC Glucose Estimat Average Glucose Hemoglobin A1c Lactate 2.0 Calcium 8.2 L Magnesium 1.5 L Iron TIBC Transferrin Transferrin % Sat Total Bilirubin 0.3 Direct Bilirubin 0.1 AST 14 ALT 15 Alkaline Phosphatase 57 Troponin I High Sens 44.9 H Total Protein 5.2 L Albumin 2.3 L Globulin Albumin/Globulin Ratio Triglycerides Cholesterol LDL Cholesterol, Calc VLDL Cholesterol, Calc HDL Cholesterol Cholesterol/HDL Ratio Procalcitonin 0.16 TSH Urine Color Urine Appearance Urine pH Ur Specific [place] Urine Protein Urine Glucose (UA) Urine Ketones Urine Blood Urine Nitrite Urine Bilirubin Urine Urobilinogen Ur Leukocyte Esterase Urine WBC (Auto) Urine RBC (Auto) U Hyaline Cast (Auto) U Epithel Cells (Auto) Urine Bacteria (Auto) Fluid Comment Synovial Source Synovial Color Synovial Appearance Synovial WBC (Auto) Synovial RBC (Auto) Synovial Polynuclear % Synovial Mononuclear % Nasal Screen MRSA (PCR) Stool Occult Bld Scrn SARS-CoV-2 (PCR) NEGATIVE Influenza Type A (PCR) Negative Influenza Type B (PCR) Negative RSV (RT-PCR) Negative Blood Type Antibody Screen Crossmatch 04/22/24 04/22/24 04/22/24 16:40 17:01 18:13 WBC RBC Hgb 6.8 L* Hct 21.4 L MCV MCH MCHC RDW Std Deviation RDW Coeff of Jono Plt Count MPV Immature Gran % (Auto) Neut % (Auto) Lymph % (Auto) [place] % (Auto) Eos % (Auto) Baso % (Auto) Neut # (Auto) Lymph # (Auto) [place] # (Auto) Eos # (Auto) Baso # (Auto) Immature Gran # (Auto) Absolute Nucleated RBC Nucleated RBC % (auto) Toxic Granulation Dohle Bodies Polychromasia PT INR APTT PTT Ratio VBG pH VBG pCO2 VBG pO2 VBG HCO3 VBG O2 Saturation VBG Base Excess Sodium Potassium Chloride Carbon Dioxide Anion Gap BUN Creatinine Est Cr Clr Drug Dosing eGFR BUN/Creatinine Ratio Glucose POC Glucose 126 H Estimat Average Glucose Hemoglobin A1c Lactate Calcium Magnesium Iron 31 L TIBC 206 L Transferrin 147 L Transferrin % Sat 15 L Total Bilirubin Direct Bilirubin AST ALT Alkaline Phosphatase Troponin I High Sens 41.6 H Total Protein Albumin Globulin Albumin/Globulin Ratio Triglycerides Cholesterol LDL Cholesterol, Calc VLDL Cholesterol, Calc HDL Cholesterol Cholesterol/HDL Ratio Procalcitonin TSH Urine Color Urine Appearance Urine pH Ur Specific [place] Urine Protein Urine Glucose (UA) Urine Ketones Urine Blood Urine Nitrite Urine Bilirubin Urine Urobilinogen Ur Leukocyte Esterase Urine WBC (Auto) Urine RBC (Auto) U Hyaline Cast (Auto) U Epithel Cells (Auto) Urine Bacteria (Auto) Fluid Comment Synovial Source Left Knee Synovial Color [place] Synovial Appearance Cloudy Synovial WBC (Auto) 86103 H Synovial RBC (Auto) 57973 Synovial Polynuclear % 94.2 Synovial Mononuclear % 5.8 Nasal Screen MRSA (PCR) Stool Occult Bld Scrn SARS-CoV-2 (PCR) Influenza Type A (PCR) Influenza Type B (PCR) RSV (RT-PCR) Blood Type AB Positive Antibody Screen NEGATIVE Crossmatch See Detail 04/22/24 04/22/24 04/22/24 20:31 23:12 23:41 WBC RBC Hgb Hct MCV MCH MCHC RDW Std Deviation RDW Coeff of Jono Plt Count MPV Immature Gran % (Auto) Neut % (Auto) Lymph % (Auto) [place] % (Auto) Eos % (Auto) Baso % (Auto) Neut # (Auto) Lymph # (Auto) [place] # (Auto) Eos # (Auto) Baso # (Auto) Immature Gran # (Auto) Absolute Nucleated RBC Nucleated RBC % (auto) Toxic Granulation Dohle Bodies Polychromasia PT INR APTT PTT Ratio VBG pH VBG pCO2 VBG pO2 VBG HCO3 VBG O2 Saturation VBG Base Excess Sodium Potassium Chloride Carbon Dioxide Anion Gap BUN Creatinine Est Cr Clr Drug Dosing eGFR BUN/Creatinine Ratio Glucose POC Glucose 246 H 235 H Estimat Average Glucose Hemoglobin A1c Lactate Calcium Magnesium Iron TIBC Transferrin Transferrin % Sat Total Bilirubin Direct Bilirubin AST ALT Alkaline Phosphatase Troponin I High Sens 37.8 H Total Protein Albumin Globulin Albumin/Globulin Ratio Triglycerides Cholesterol LDL Cholesterol, Calc VLDL Cholesterol, Calc HDL Cholesterol Cholesterol/HDL Ratio Procalcitonin TSH Urine Color Urine Appearance Urine pH Ur Specific [place] Urine Protein Urine Glucose (UA) Urine Ketones Urine Blood Urine Nitrite Urine Bilirubin Urine Urobilinogen Ur Leukocyte Esterase Urine WBC (Auto) Urine RBC (Auto) U Hyaline Cast (Auto) U Epithel Cells (Auto) Urine Bacteria (Auto) Fluid Comment Synovial Source Synovial Color Synovial Appearance Synovial WBC (Auto) Synovial RBC (Auto) Synovial Polynuclear % Synovial Mononuclear % Nasal Screen MRSA (PCR) Stool Occult Bld Scrn SARS-CoV-2 (PCR) Influenza Type A (PCR) Influenza Type B (PCR) RSV (RT-PCR) Blood Type Antibody Screen Crossmatch 04/23/24 04/23/24 04/23/24 02:03 05:25 06:27 WBC 5.22 RBC 2.83 L Hgb 9.2 L Hct 27.6 L MCV 97.5 MCH 32.5 MCHC 33.3 RDW Std Deviation 65.5 H RDW Coeff of Jono 19.2 H Plt Count 181 MPV 9.9 Immature Gran % (Auto) 0.4 Neut % (Auto) 60.7 Lymph % (Auto) 29.7 [place] % (Auto) 8.4 Eos % (Auto) 0.8 Baso % (Auto) 0.0 Neut # (Auto) 3.17 Lymph # (Auto) 1.55 [place] # (Auto) 0.44 Eos # (Auto) 0.04 Baso # (Auto) 0.00 Immature Gran # (Auto) 0.02 Absolute Nucleated RBC Nucleated RBC % (auto) Toxic Granulation Dohle Bodies Polychromasia PT INR APTT PTT Ratio VBG pH VBG pCO2 VBG pO2 VBG HCO3 VBG O2 Saturation VBG Base Excess Sodium 138 Potassium 4.5 Chloride 108 H Carbon Dioxide 27 Anion Gap 3 BUN 28 H Creatinine 1.32 Est Cr Clr Drug Dosing 49.9 eGFR 55.55 BUN/Creatinine Ratio 21.2 H Glucose 136 H POC Glucose 70 Estimat Average Glucose 163 Hemoglobin A1c 7.3 H Lactate Calcium 8.4 L Magnesium 1.8 Iron TIBC Transferrin Transferrin % Sat Total Bilirubin 0.6 Direct Bilirubin AST 14 ALT 15 Alkaline Phosphatase 58 Troponin I High Sens Total Protein 5.2 L Albumin 2.3 L Globulin 2.9 Albumin/Globulin Ratio 0.8 L Triglycerides 69 Cholesterol 75 LDL Cholesterol, Calc 20 VLDL Cholesterol, Calc 14 HDL Cholesterol 41 Cholesterol/HDL Ratio 1.8 Procalcitonin TSH 1.890 Urine Color Yellow Urine Appearance Clear Urine pH 5.5 Ur Specific [place] 1.015 Urine Protein 2+ H Urine Glucose (UA) Trace H Urine Ketones Negative Urine Blood Negative Urine Nitrite Negative Urine Bilirubin Negative Urine Urobilinogen Negative Ur Leukocyte Esterase Negative Urine WBC (Auto) 0-5 Urine RBC (Auto) 0-2 U Hyaline Cast (Auto) 0-2 U Epithel Cells (Auto) 0-2 Urine Bacteria (Auto) None Seen Fluid Comment Synovial Source Synovial Color Synovial Appearance Synovial WBC (Auto) Synovial RBC (Auto) Synovial Polynuclear % Synovial Mononuclear % Nasal Screen MRSA (PCR) Negative Stool Occult Bld Scrn Negative SARS-CoV-2 (PCR) Influenza Type A (PCR) Influenza Type B (PCR) RSV (RT-PCR) Blood Type Antibody Screen Crossmatch 04/23/24 04/23/24 04/23/24 07:55 12:38 16:23 WBC RBC Hgb Hct MCV MCH MCHC RDW Std Deviation RDW Coeff of Jono Plt Count MPV Immature Gran % (Auto) Neut % (Auto) Lymph % (Auto) [place] % (Auto) Eos % (Auto) Baso % (Auto) Neut # (Auto) Lymph # (Auto) [place] # (Auto) Eos # (Auto) Baso # (Auto) Immature Gran # (Auto) Absolute Nucleated RBC Nucleated RBC % (auto) Toxic Granulation Dohle Bodies Polychromasia PT INR APTT PTT Ratio VBG pH VBG pCO2 VBG pO2 VBG HCO3 VBG O2 Saturation VBG Base Excess Sodium Potassium Chloride Carbon Dioxide Anion Gap BUN Creatinine Est Cr Clr Drug Dosing eGFR BUN/Creatinine Ratio Glucose POC Glucose 163 H 205 H 171 H Estimat Average Glucose Hemoglobin A1c Lactate Calcium Magnesium Iron TIBC Transferrin Transferrin % Sat Total Bilirubin Direct Bilirubin AST ALT Alkaline Phosphatase Troponin I High Sens Total Protein Albumin Globulin Albumin/Globulin Ratio Triglycerides Cholesterol LDL Cholesterol, Calc VLDL Cholesterol, Calc HDL Cholesterol Cholesterol/HDL Ratio Procalcitonin TSH Urine Color Urine Appearance Urine pH Ur Specific [place] Urine Protein Urine Glucose (UA) Urine Ketones Urine Blood Urine Nitrite Urine Bilirubin Urine Urobilinogen Ur Leukocyte Esterase Urine WBC (Auto) Urine RBC (Auto) U Hyaline Cast (Auto) U Epithel Cells (Auto) Urine Bacteria (Auto) Fluid Comment Synovial Source Synovial Color Synovial Appearance Synovial WBC (Auto) Synovial RBC (Auto) Synovial Polynuclear % Synovial Mononuclear % Nasal Screen MRSA (PCR) Stool Occult Bld Scrn SARS-CoV-2 (PCR) Influenza Type A (PCR) Influenza Type B (PCR) RSV (RT-PCR) Blood Type Antibody Screen Crossmatch Diagnostic Findings Microbiology 04/22/24 15:08 Blood Aerobic Blood Culture - Preliminary No growth in Aerobic bottle after 24 hours. 04/22/24 15:08 Blood Anaerobic Blood Culture - Preliminary No growth in Anaerobic bottle after 24 hours. 04/22/24 14:50 Blood Aerobic Blood Culture - Preliminary No growth in Aerobic bottle after 24 hours. 04/22/24 14:50 Blood Anaerobic Blood Culture - Preliminary No growth in Anaerobic bottle after 24 hours. 04/22/24 16:40 Knee,Left Gram Stain - Final 04/22/24 16:40 Knee,Left Aerobic and Anaerobic Culture - Preliminary Klebsiella pneumoniae Chest X-Ray 04/22/24 14:38 XR chest 1V portable CLINICAL HISTORY: Sepsis COMPARISON STUDY: 04/07/2024 FINDINGS: Stable cardiomegaly with mild pulmonary vascular congestion. There is small to moderate left pleural effusion, increased. There is increased consolidation at the left lung base. Stable diffuse pulmonary interstitial opacities otherwise. IMPRESSION: Increased pleural effusion and consolidation on the left. ACT 112: Negative or not required by law. Electronically signed by: Keith Burger M.D. 04/22/2024 3:38 PM Medications Administered Home Medications Medication Instructions Recorded Confirmed Last Taken pantoprazole 40 mg tablet,delayed 40 mg PO BID 12/23/18 04/22/24 05/02/22 release (Protonix) CPAP Machine #1 04/22/19 04/22/24 Unknown CPAP Supplies #1 ea 04/22/19 04/22/24 Unknown CPAP Machine #1 ea 08/10/19 04/22/24 Unknown albuterol sulfate 90 mcg/actuation 2 puffs inhalation Q6H PRN 08/10/19 04/22/24 Unknown aerosol inhaler (Ventolin HFA) shortness of breath or wheezing #8.5 grams citalopram 40 mg tablet (Celexa) 60 mg PO QAM 04/04/21 04/22/24 05/02/22 aspirin 325 mg tablet 325 mg PO DAILY 07/27/21 04/22/24 05/02/22 benzonatate 200 mg capsule 200 mg PO Q8H PRN cough 01/08/23 04/22/24 Unknown insulin degludec 100 unit/mL (3 34 unit subcut QAM diabetes 01/08/23 04/22/24 Unknown mL) subcutaneous pen (Tresiba FlexTouch U-100 insulin) linaclotide 290 mcg capsule 290 mcg PO DAILY 01/08/23 04/22/24 Unknown (Linzess) nitroglycerin 0.4 mg sublingual 0.4 mg sublingual Q5M PRN Chest 01/08/23 04/22/24 Unknown tablet (Nitrostat) Pain fluticasone furoate 50 1 inh inhalation DAILY 07/30/23 04/22/24 Unknown mcg-vilanterol 25 mcg/dose inhalation powder (Breo Ellipta) clopidogrel 75 mg tablet 75 mg PO DAILY 02/28/24 04/22/24 Unknown gabapentin 800 mg tablet 800 mg PO TID 02/28/24 04/22/24 Unknown ondansetron 8 mg disintegrating 8 mg PO Q8 PRN N/V 02/28/24 04/22/24 Unknown tablet oxycodone 5 mg tablet 5 mg PO .EVERY 4-6 HRS PRN Pain 02/28/24 04/22/24 Unknown magnesium oxide 400 mg PO DAILY #14 tabs 03/01/24 04/22/24 Unknown insulin NPH isoph U-100 human 100 15 unit (0.15 mL) subcut .COMPLEX 03/23/24 04/22/24 Unknown unit/mL (3 mL) subcutaneous pen #15 mL (Humulin N NPH U-100 Insulin KwikPen) insulin aspart 10 unit subcut AC 04/22/24 04/22/24 Unknown (niacinamide)(U-100) 100 unit/mL(3 mL) subcutaneous pen (Fiasp FlexTouch U-100 Insulin) rosuvastatin 40 mg tablet 40 mg PO DAILY 04/22/24 04/22/24 Unknown Active Medications Generic Name Dose Route Start Last Admin Trade Name Freq PRN Reason Stop Dose Admin Citalopram Hydrobromide 60 mg 04/23/24 09:00 04/23/24 08:07 Citalopram 20 Mg Tab PO 05/23/24 08:59 60 mg QAM MONI Administration Gabapentin 600 mg 04/22/24 21:00 04/23/24 14:24 Gabapentin 600 Mg Tab PO 05/22/24 20:59 600 mg TID MONI Administration Cefepime HCl 2,000 mg in 20 mls @ 5 mls/min 04/23/24 04:00 04/23/24 16:56 Maxipime 2000mg IV 04/30/24 03:59 5 mls/min Q12H MONI Administration Protocol Vancomycin HCl 1,500 mg/ 530 mls @ 200 mls/hr 04/23/24 12:00 04/23/24 14:48 Sodium Chloride IV 04/28/24 11:59 Infused Q24H MONI Infusion Linaclotide 290 mcg 04/23/24 09:00 04/23/24 08:06 Linaclotide 145 Mcg Capsule PO 05/23/24 08:59 290 mcg DAILY MONI Administration Magnesium Oxide 400 mg 04/23/24 09:00 04/23/24 08:07 Magnesium Oxide 400 Mg Tab PO 05/23/24 08:59 400 mg DAILY MONI Administration Miscellaneous 1 each 04/23/24 00:00 04/23/24 15:12 Order Awaiting Action Darrell Ellipta 50_25 N/A 05/23/24 00:00 Not Given QS MONI Oxycodone HCl 5 mg 04/22/24 18:20 04/23/24 14:24 Oxycodone Hcl Ir 5 Mg Tab (Immediate Release) PO 05/06/24 18:19 5 mg Q6 PRN Administration Pain Pantoprazole Sodium 40 mg 04/22/24 21:00 04/23/24 08:06 Pantoprazole 40 Mg Tab PO 05/22/24 20:59 40 mg BID MONI Administration Rosuvastatin Calcium 40 mg 04/23/24 09:00 04/23/24 08:07 Rosuvastatin Calcium 20 Mg Tab PO 05/23/24 08:59 40 mg DAILY MONI Administration
--- NOTE | 2024-04-23 16:47 | Pulmonary Consultation ---
Date of Consultation April 23, 2024 Assessment & Plan (1) Loculated pleural effusion: (2) Chronic obstructive pulmonary disease: (3) Acute respiratory failure with hypoxia: (4) Metastatic lung cancer (metastasis from lung to other site): Plan PFT 10/07/2020: Moderate obstructive lung dysfunction, moderate restriction, severe decrease in DLCO FVC 2.90 L 63%, FEV1 1.86 L 54%, FEV1/FVC 64%, TLC 56%, DLCO 70% CT chest 04/08/2024 personally reviewed: Centrilobular emphysema appreciated bilaterally Increase in talar lobular and interstitial marking bilaterally especially in the right upper lobe Small left-sided pleural effusion Calcified mediastinal lymph nodes 2D echo 04/23/2024: EF 60-65%, mild MR, normal RVSP, grade 2 diastolic dysfunction -- Left-sided pleural effusion Seems to be loculated based on the chest x-ray Procalcitonin 0.16 --COPD with emphysema, current smoker On Breo 50 at home > [id number] smoking history currently smoking a pack a day --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 Patient understands and wants to go ahead with the procedures Consent signed, witnessed and put in the chart Please note the above document was generated using voice recognition software. It may contain grammatical, syntax or spelling errors.Any formal questions or concerns about the content, text or information contained within the body of this dictation should be directly addressed to the provider for clarification. History of Present Illness Attending Physician: Melina Escalante MD History of Present Illness 78-year-old male present to the hospital with complaints of left knee swelling, he was found to have left-sided pleural effusion, pulmonary consulted for the same Past medical history: Left-sided lung cancer initially diagnosed in 2020 with relapse in May 2023, COPD, A-fib At the time of examination patient was resting comfortably on the bed, he was saturating 92-93% on 2 L oxygen Denied any pleuritic chest pain He did state that there breathing was getting worse The main issue he came to the hospital was so left knee pain. Denied any nausea vomiting No dysuria, no diarrhea No unusual headache or blurry vision Social history:> 30-uakj-egkc smoking history, currently smoking a pack a day Allergies Allergy/AdvReac Type Severity Reaction Status Date / Time adhesive Allergy Mild Silk/plastic Verified 03/23/24 09:58 adhesive tape (redness, blistering) Sulfa (Sulfonamide AdvReac Intermediate nausea & Verified 03/23/24 09:58 Antibiotics) vomiting Home Medications Medication Instructions Recorded Confirmed Type pantoprazole 40 mg tablet,delayed 40 mg PO BID 12/23/18 04/22/24 History release (Protonix) CPAP Machine #1 04/22/19 04/22/24 Rx CPAP Supplies #1 04/22/19 04/22/24 Rx CPAP Machine #1 08/10/19 04/22/24 Rx albuterol sulfate 90 mcg/actuation 2 puffs inhalation Q6H PRN 08/10/19 04/22/24 Rx aerosol inhaler (Ventolin HFA) shortness of breath or wheezing #8.5 grams citalopram 40 mg tablet (Celexa) 60 mg PO QAM 04/04/21 04/22/24 History aspirin 325 mg tablet 325 mg PO DAILY 07/27/21 04/22/24 History benzonatate 200 mg capsule 200 mg PO Q8H PRN cough 01/08/23 04/22/24 History insulin degludec 100 unit/mL (3 34 unit subcut QAM diabetes 01/08/23 04/22/24 History mL) subcutaneous pen (Tresiba FlexTouch U-100 insulin) linaclotide 290 mcg capsule 290 mcg PO DAILY 01/08/23 04/22/24 History (Linzess) nitroglycerin 0.4 mg sublingual 0.4 mg sublingual Q5M PRN Chest 01/08/23 04/22/24 History tablet (Nitrostat) Pain fluticasone furoate 50 1 inh inhalation DAILY 07/30/23 04/22/24 History mcg-vilanterol 25 mcg/dose inhalation powder (Breo Ellipta) clopidogrel 75 mg tablet 75 mg PO DAILY 02/28/24 04/22/24 History gabapentin 800 mg tablet 800 mg PO TID 02/28/24 04/22/24 History ondansetron 8 mg disintegrating 8 mg PO Q8 PRN N/V 02/28/24 04/22/24 History tablet oxycodone 5 mg tablet 5 mg PO .EVERY 4-6 HRS PRN Pain 02/28/24 04/22/24 History magnesium oxide 400 mg PO DAILY #14 tabs 03/01/24 04/22/24 Rx insulin NPH isoph U-100 human 100 15 unit (0.15 mL) subcut .COMPLEX 03/23/24 04/22/24 Rx unit/mL (3 mL) subcutaneous pen #15 mL (Humulin N NPH U-100 Insulin KwikPen) insulin aspart 10 unit subcut AC 04/22/24 04/22/24 History (niacinamide)(U-100) 100 unit/mL(3 mL) subcutaneous pen (Fiasp FlexTouch U-100 Insulin) rosuvastatin 40 mg tablet 40 mg PO DAILY 04/22/24 04/22/24 History Patient History Medical History (Updated 04/23/24 @ 16:43 by Mignon Cancino MD, [facility]) Paroxysmal A-fib Stage 3b chronic kidney disease Stroke Immediately after spinal fusion 04/2019---went into kidney failure at the same time > only deficit is sometimes he "dribbles out of the left side of his mouth" CAD (coronary artery disease) angioplasty/[facility] to [facility] (2014) Synergy stent (11/03/2020) after failed stress test Acute and chronic respiratory failure with hypercapnia Hyperkalemia Urinary retention Hypoxia Somnolence Arthritis Urinary problem urinary hesitancy Spinal stenosis Diabetes IDDM Sleep apnea awaiting CPAP Hypertension Carotid arterial disease "no ICA stenosis.. severe left ECA stenosis" per cardiology office visit note 03/2019 > follows with Dr. Reyes in [place] Interstitial lung disease Surgical History History of elbow surgery right History of melanoma excision History of lumbar spinal fusion L5-S1 decompression/fusion (09/17/19): Grade view 2, Glidescope#3, ETT 8.0 at [facility] Status post lumbar surgery History of arthroscopy of right shoulder History of colonoscopy History of tonsillectomy History of hernia surgery X2 History of thumb surgery R/L History of repair of left rotator cuff History of cardiac cath stent x1 (2014) Synergy stent x1 (11/03/2020) Family History Mother Diabetes Heart disease Cancer Lung cancer Father Cancer Oral cancer Other No family history of adverse response to anesthesia Social History Smoking Status: Current every day smoker Tobacco Type: Cigarettes Cigarettes Per Day: A pack; Second Hand Exposure: No; Do You Dip or Chew Tobacco: No; Hx Alcohol Use: No Hx Substance Use: No Preferred Language: Nepalese Communication Ability: Effective Visual Impairment: No Limitations Hearing Ability: Normal Compounding Technician Required: No Beliefs That Will Affect Care: None Current Living Situation: Spouse Current Living Situation Comment: Home current occupational status: retired Feels Safe at Home: Yes Childhood Exposure to Second-Hand Smoke: Yes Diet Comment: food choices with less carbs, uses sugar substitute Assistive Devices: Glasses and Walker Review of Systems 2 Review of Systems: All systems reviewed & are unremarkable except as noted in HPI & below Physical Exam 2 Physical Exam: Constitutional: No acute distress HEENT: EOMI, PERRLA, forehead midline scar Respiratory system: Decreased air entry on the left side, no wheeze, no rhonchi, mild crackles bilateral lower lobe CVS: S1-S2 positive, no murmurs or gallops Abdomen: Soft, nontender, nondistended, positive bowel sounds x4 Extremities: +2 pulses bilaterally radialis/ dorsalis pedis, no cyanosis, +2 pitting edema left lower extremity, +1 pitting edema right lower extremity Neuro: Awake alert oriented x3 Psych: Normal mood and affect G/U: No Gould Skin: no rashes, warm and dry Lymphatic: no cervical or axillary lymphadenopathy Results & Data Results & Data Vital Signs (Past 12 Hours) Vital Signs Temp Pulse Pulse Resp BP Pulse Ox Pulse Ox 04/23/24 15:21 36.9 C 94 H 18 149/63 H 92 04/23/24 14:57 90 04/23/24 14:40 91 04/23/24 10:58 36.7 C 81 18 149/83 H 94 04/23/24 10:50 81 18 91 04/23/24 07:45 04/23/24 07:29 36.6 C 83 18 153/76 H 94 04/23/24 07:26 81 O2 Del Method O2 Del Method O2 Flow Rate O2 Flow Rate 04/23/24 15:21 Oxymask 2 04/23/24 14:57 04/23/24 14:40 Oxymask 2 04/23/24 10:58 Oxymask 04/23/24 10:50 Oxymask 4 04/23/24 07:45 Oxymask 2 04/23/24 07:29 Oxymask 2 04/23/24 07:26 Laboratory Results 04/23/24 06:27 04/23/24 06:27 PG Care Time/CCT Total # of Minutes Spent Total Time Spent with Patient: Total time spent is greater than 50% in coordination of care (as documented) at patient's floor/unit and/or counseling patient: Coding Level of Care Code 90805 INT INP/OBS CARE 3/75MIN Diagnoses Loculated pleural effusion J90 Chronic obstructive pulmonary disease J44.9 Acute respiratory failure with hypoxia J96.01 Metastatic lung cancer (metastasis from lung to other site) C34.90
--- NOTE | 2024-04-23 18:00 | Procedure Note ---
Procedure Note Date of Service April 23, 2024 Procedure: Diagnostic therapeutic ultrasound-guided catheter thoracentesis Senior Energy Consultant: Dr. Mignon Cancino Indication: Left-sided pleural effusion Consent: Signed by patient and verified with timeout prior to procedure Anesthesia: 1% lidocaine without epinephrine local. Procedure: Consent was verified and timeout performed. Appropriate imaging studies were reviewed prior to the procedure. Patient was placed in a seated position and limited thoracic ultrasound was performed of the left chest. See separate imaging. Appropriate site above the diaphragm for thoracentesis was selected. The skin was prepped and draped in normal sterile fashion. Lidocaine was used for local analgesia. Fluid was aspirated via the finder needle. A small skin nicole was made with the scalpel and the catheter over the needle apparatus was advanced over the rib into the pleural space. Using the syringe one-way valve system, a total of 750 mL's of dark serosanguineous fluid was removed. The catheter was removed and observed to be intact. A sterile dressing was applied. Post procedure chest x-ray was ordered. Fluid was sent for labs, culture and cytology. Complications: None Blood loss: None [facility] Procedure Codes (Charges) Pulmonary/Thoracic Procedure 1: Pulmonary and Thoracic: 62248 Thoracentesis w imaging Coding CPT Codes Pulmonary/Thoracic - Pulmonary and Thoracic: 04736 Thoracentesis w imaging ([id number]) Additional Codes Date of Service ([facility].SURGERY)
--- NOTE | 2024-04-23 18:17 | XRay Report ---
EXAM: Radiograph of the Chest 1 View INDICATION: Left thoracentesis TECHNIQUE: Frontal view of the chest. Image obtained at 5:40 PM COMPARISON: 04/07/2024 FINDINGS: Lungs and pleural spaces: Loculated left pleural effusion is slightly decreased. Stable coarse consolidation in the left midlung and worsening generalized interstitial and patchy airspace infiltrates throughout the right lung. No pneumothorax. Heart: Stable large cardiac shadow. Mediastinum: Normal contour. Bones/joints: No fracture, erosion or dislocation. Soft tissues: No abnormality noted. No radiopaque foreign body noted. Lymph nodes: Oval calcification projects over the left mainstem bronchus which could be artifactual or a node. Upper abdomen: No abnormality noted. IMPRESSION: 1. Slight decrease loculated left pleural effusion. No pneumothorax. 2. Worsening interstitial and airspace infiltrates may reflect developing alveolar edema and/or pneumonia. ACT 112: Negative or not required by law. Electronically signed by Roselyn Leal 04-23-2024 6:17 PM
[2024-04-23 19:01] LABS: Albumin Level 2.4 gm/dl (3.4-5.0); Bilirubin,Total 0.6 mg/dl (0.2-1.0)
[2024-04-23 19:35] LABS: Amylase Pleural Fluid 15 U/L; Glucose Pleural Fluid 99 mg/dl
[2024-04-23 19:36] LABS: Total Protein Pleural Fluid < 3.0 gm/dl
[2024-04-23 19:49] LABS: LDH Pleural Fluid 2548 U/L
[2024-04-23 20:04] LABS: Appearance Pleural Fluid Hazy; Color Pleural Fluid Yellow; Lymphocytes, Fluid 9 %; Mono,Macrophage,Mesothelial 9 %; Neutrophils, Fluid 82 %; RBC Pleural Fluid Auto 8000 /uL; Source Pleural Fluid Left Lung; WBC Pleural Fluid Auto 717 /uL
--- NOTE | 2024-04-23 21:40 | Electrocardiogram Report ---
Test Reason : Blood Pressure : */* mmHG Vent. Rate : 92 BPM Atrial Rate : 92 BPM P-R Int : 112 ms QRS Dur : 94 ms QT Int : 402 ms P-R-T Axes : 64 35 117 degrees QTcB Int : 497 ms Poor data quality, interpretation may be adversely affected Normal sinus rhythm T wave abnormality, consider anterior ischemia Prolonged QT Abnormal ECG When compared with ECG of 05-Apr-2024 09:31, Sinus rhythm has replaced Atrial fibrillation T wave inversion now evident in Anterior leads Confirmed by Haris Mustafa ([id number]) on 04/23/2024 9:40:17 PM Referred By: Confirmed By: Haris Mustafa
[2024-04-24 07:46] LABS: Creatinine Clr Calc Pharmacy 51.1 ml/min
--- NOTE | 2024-04-24 08:18 | Orthopedic Progress Note ---
Date of Service April 24, 2024 Assessment & Plan (1) Septic joint of left knee joint: (2) Pseudogout of left knee: Plan 78-year-old male with Klebsiella septic knee arthritis in his [place] knee with background pseudogout. Appreciate medical optimization and anesthesia evaluation. His best path forward to less pain and improved function and eradication his infection is in the arthroscopic irrigation and debridement. Sometimes serial debridement is needed. Will plan to do the arthroscopic debridement today. He should remain n.p.o. for now. Plan for postoperative drain in the knee. Will take cultures as well. The informed consent was reviewed and confirmed with the patient. I reviewed the risks and benefits the procedure in detail. He was agreeable to proceed today. Subjective Patient reports progressive pain in the left knee. He wants to have something done. Culture from the ER aspiration revealed the same Klebsiella species Review of Systems All systems reviewed & are unremarkable except as noted in HPI & below. Physical Exam Left knee: Moderate effusion has returned. Painful arc of motion. Constitutional WD/WN, vitals as above no acute distress and not intoxicated appearing Respiratory normal respiratory effort; no labored breathing Cardiovascular Extremities: normal capillary refill Results & Data Results & Data Laboratory Results ER aspiration yielded Klebsiella on day 1 of culture. Increased WBCs Diagnostic Findings . PG Care Time/CCT Total # of Minutes Spent Total Time Spent with Patient: Total time spent is greater than 50% in coordination of care (as documented) at patient's floor/unit and/or counseling patient: Coding Level of Care Code 87179 SUB INP/OBS CARE 3/50MIN (57 - DECISION FOR SURGERY) Diagnoses Septic joint of left knee joint M00.9 Pseudogout of left knee M11.262
--- NOTE | 2024-04-24 09:24 | Pulmonology Progress Note ---
Date of Service April 24, 2024 Assessment & Plan (1) Loculated pleural effusion: (2) Chronic obstructive pulmonary disease: (3) Acute respiratory failure with hypoxia: (4) Metastatic lung cancer (metastasis from lung to other site): Plan PFT 10/07/2020: Moderate obstructive lung dysfunction, moderate restriction, severe decrease in DLCO FVC 2.90 L 63%, FEV1 1.86 L 54%, FEV1/FVC 64%, TLC 56%, DLCO 70% CT chest 04/08/2024 personally reviewed: Centrilobular emphysema appreciated bilaterally Increase in talar lobular and interstitial marking bilaterally especially in the right upper lobe Small left-sided pleural effusion Calcified mediastinal lymph nodes 2D echo 04/23/2024: EF 60-65%, mild MR, normal RVSP, grade 2 diastolic dysfunction -- Left-sided pleural effusion, exudative Seems to be loculated based on the chest x-ray Procalcitonin 0.16, nasal MRSA negative BNP 1076 S/p thoracentesis 04/23/2024, 750 mL of cloudy serosanguineous fluid removed, e xudative as per lights criteria, neutrophilic Pleural fluid: LDH 2548, protein <3, pH 7.27 Serum: LDH 189, protein 5.2 --COPD with emphysema, current smoker On Breo 50 at home > [id number] smoking history currently smoking a pack a day --Metastatic stage IV adenocarcinoma of the lung Initially diagnosed 09/2020 status post SBRT Relapse 05/[address]-guided biopsy of the left adrenal gland PD-L1 40% Received 1 cycle of pembrolizumab and 1 cycle of carboplatin/paclitaxel January 2024 which is complicated by diarrhea and poor appetite -- JAY Noncompliant with CPAP Plan: Given the elevated BNP, I would recommend patient to be diuresed to keep him negative balance Repeat chest x-ray in the morning Follow-up cytology of the fluid Incentive spirometry will be beneficial Recommend CPAP of 12 cm H2O nightly Case was discussed with RN at bedside Please note the above document was generated using voice recognition software. It may contain grammatical, syntax or spelling errors.Any formal questions or concerns about the content, text or information contained within the body of this dictation should be directly addressed to the provider for clarification. Admission and Anticipated Discharge Date Admission Date: April 22, 2024 Subjective Patient seen and examined at bedside. No acute distress, no adverse events overnight Patient states that she is feeling better after we took the fluid out on the left side Denies any chest pain Still complaining of discomfort in the left knee He was saturating 95 to 95% on 3 L OxyMask, I went down to 2 L Review of Systems 2 Review of Systems: All systems reviewed & are unremarkable except as noted in Subjective Physical Exam 2 Physical Exam: Constitutional: No acute distress HEENT: EOMI, PERRLA, forehead midline scar Respiratory system: Decreased air entry on the left side, improved from yesterday, no wheeze, no rhonchi, positive crackles left lower lobe CVS: S1-S2 positive, no murmurs or gallops Abdomen: Soft, nontender, nondistended, positive bowel sounds x4 Extremities: +2 pulses bilaterally radialis/ dorsalis pedis, no cyanosis, +2 pitting edema left lower extremity, +1 pitting edema right lower extremity Neuro: Awake alert oriented x3 Psych: Normal mood and affect G/U: No Gould Skin: no rashes, warm and dry Lymphatic: no cervical or axillary lymphadenopathy Results & Data Results & Data Vital Signs (Past 12 Hours) Vital Signs Temp Pulse Pulse Resp BP Pulse Ox O2 Del Method 04/24/24 08:19 36.4 C L 89 18 171/67 H 93 Oxymask 04/24/24 07:29 87 04/24/24 03:13 36.7 C 89 22 146/75 H 95 Oxymask 04/23/24 22:46 36.8 C 78 20 116/79 95 Oxymask 04/23/24 21:41 86 O2 Flow Rate 04/24/24 08:19 3 04/24/24 07:29 04/24/24 03:13 2 04/23/24 22:46 2 04/23/24 21:41 Laboratory Results 04/23/24 06:27 04/24/24 06:26 PG Care Time/CCT Total # of Minutes Spent Total Time Spent with Patient: Total time spent is greater than 50% in coordination of care (as documented) at patient's floor/unit and/or counseling patient: Coding Level of Care Code 88439 SUB INP/OBS CARE 3/50MIN Diagnoses Loculated pleural effusion J90 Chronic obstructive pulmonary disease J44.9 Acute respiratory failure with hypoxia J96.01 Metastatic lung cancer (metastasis from lung to other site) C34.90
--- NOTE | 2024-04-24 11:27 | Hospitalist Progress Note ---
Date of Service April 24, 2024 Assessment & Plan (1) Acute hypoxemic respiratory failure: Plan: Assessment: 1. Acute hypoxemic respiratory failure. Secondary to COPD, pleural effusion and PNA some improvement following Thoracentesis continue supplemental oxygen 2. Left lung pneumonia with moderate-sized parapneumonic effusion. Chest x ray shows worsening pleural effusion and consolidation Patient was treated for PNA a couple of weeks ago Now s/p thoracentesis with removal of about 750cc of serosanguineous fluid Continue IV vancomycin. IV cefepime. 3. Left knee effusion with possible septic joint. had athrocentesis and fluid shows evidence of pseudogout, culture also growing klebsiella Orthopedics consulted. Plan is for arthrocentesis and debridement and washout today in the OR Continue IV cefepime and IV vancomycin. Appreciate Ortho and ID 4. Acute on chronic anemia. Hb stable following Blood transfusion 5. History of paroxysmal atrial fibrillation during his last admission. Was commenced on amiodarone at that time. Not on anticoagulation due to GI bleed 6. Diabetes mellitus type 2. Insulin requiring. Insulins will be held off on on this time given the significant hypoglycemia. Will check blood glucoses every 4 hours. On-call provider will be notified if less than 80 or greater than 180. 7. Hypoglycemia. Resolved 8. Lung cancer with renal cell carcinoma. Under active treatment per the patient family. 9. COPD with exacerbation secondary to pneumonia. Continue duoenbs 10. Sleep apnea. Patient does not use CPAP currently at home. Although he does have a history of this. Will do continuous pulse ox. 11. History of depression. Continue home medication. 12. History of GERD. Will do Protonix twice daily. 13. History of dyslipidemia. Continue medication. 14. Mildly elevated troponins probably from demand ischemia due to hypoxemic respiratory failure. Trend. Echocardiogram. 15. History of carotid artery disease follows with vascular surgery in [place]. 15. Hypomagnesemia. Replaced. Will be rechecked. Plan: continue hospitalization Admission and Anticipated Discharge Date Admission Date: April 22, 2024 Subjective patient seen and examined, feels a little better following thoracentesis, still has knee pain Review of Systems Review of Systems: All systems reviewed are negative, apart from the ones contained in the history. Physical Exam Physical Exam: The patient is awake, alert and oriented 3, well developed and well nourished, normocephalic and atraumatic, lying in bed and in no acute distress. HEENT--PERRL, EOMI, mucous membranes and oropharynx mildly dry Neck--supple. No JVD. No bruits. Thyroid normal, trachea midline, no adenopathy. Heart--normal S1 and S2. No murmurs, rubs or gallops. Lungs--reduced air entry on auscultation Abdomen--normal bowel sounds and soft. Extremities--no cyanosis or clubbing. No edema. Dermatologic--normal skin turgor, normal color, no abnormal lymph nodes, no rash. Neurologic--cranial nerves II through XII grossly intact. Rheumatologic--normal range of motion. Psychiatric--normal affect. Results & Data Results & Data Vital Signs (Past 12 Hours) Vital Signs Temp Pulse Pulse Resp BP Pulse Ox O2 Del Method 04/24/24 08:19 97.5 F L 89 18 171/67 H 93 Oxymask 04/24/24 08:15 Oxymask 04/24/24 07:29 87 04/24/24 03:13 98.1 F 89 22 146/75 H 95 Oxymask O2 Flow Rate 04/24/24 08:19 3 04/24/24 08:15 2 04/24/24 07:29 04/24/24 03:13 2 PG Care Time/CCT Total # of Minutes Spent Total Time Spent with Patient: Total time spent is greater than 50% in coordination of care (as documented) at patient's floor/unit and/or counseling patient: Coding Level of Care Code 11583 SUB INP/OBS CARE 2/35MIN Diagnoses Acute hypoxemic respiratory failure J96.01 Time Spent (min) 35
--- NOTE | 2024-04-24 14:09 | Infectious Disease Progress Nt ---
Date of Service April 24, 2024 Assessment & Plan (1) Acute respiratory failure with hypoxia: (2) Loculated pleural effusion: (3) Septic joint of left knee joint: (4) Pseudogout of left knee: Plan This is a 78-year-old man with past medical history of metastatic adenocarcinoma of the lung (sp cycle 1 pembrolizumab on 01/22/24 /cycle 3 held and sp cycle 1 carboplatin/paclitaxel 01/29/24 and cycle 3 03/26/24), COPD, DM 2, hypertension recently admitted 03/31/24 - 04/11/24 for acute hypoxic respiratory failure thought to be 2/2 possible multifocal pneumonia, pancytopenia and diffuse bone and joint pain. He was treated with Zosyn inpatient and discharged on Augmentin. He also was noted to have a left knee effusion but declined aspiration and was treated with pain medication. He was discharged to inpatient rehab. He had progressive left knee pain/swelling and was seen by orthopedic surgery outpatient. He underwent an arthrocentesis on 04/21/24 which showed 17,584 WBC with 92% neutrophils and grew rare Klebsiella pneumoniae and rare possible calcium pyrophosphate dihydrate crystals c/f pseudogout. He presents to the ED on 04/22/24 from inpatient rehab for evaluation of left knee septic arthritis. On admission, he is afebrile, pulse 93, blood pressure 129/53, hypoxic and required 6 L nasal cannula. Labs: WBC 4.21, hemoglobin 6.8, hematocrit 21.4, BUN 31, creatinine 1.49, procalcitonin 0.16. UA negative for pyuria. MRSA nasal screen negative. Repeat arthrocentesis shows 37, 125 WBC with 94% neutrophils, growing rare Klebsiella pneumoniae. Chest x-ray showed increased left pleural effusion and consolidation. He is being followed by orthopedic s urgery who initially recommended antibiotic therapy and serial aspiration, however they feel that he will benefit from an arthroscopic irrigation and debridement once medically optimized. He is scheduled for left knee arthroscopic debridement on 04/24/24. He underwent thoracentesis. He is receiving cefepime and vancomycin. ID consulted for septic knee. No Tele-presenter available for live tele-visit at time of consult or follow up. E-consult completed via chart review Microbiology; Left knee synovial fluid culture 04/21/2024 rare Klebsiella pneumoniae (pansensitive) Blood culture 04/22/2024 NGTD Left knee synovial fluid culture 04/22 rare Klebsiella pneumoniae (pansensitive) MRSA nasal screen 04/23/2024 negative Pleural fluid culture 04/24/24 pending Antibiotics Cefepime 04/22ongoing Vancomycin #Left solomon knee septic arthritis with Klebsiella pneumoniae # Left Parapneumonic versus loculated pleural effusion # Acute hypoxic respiratory failure # Metastatic lung adenocarcinoma on immunotherapy and chemotherapy -Status post pembrolizumab times 1, carboplatin/paclitaxel times cycle 1 and 3 Discussion. Agree with pending arthroscopic debridement for solomon left knee joint septic arthritis. He underwent thoracentesis today, 04/24. Fluid is exudative per lights criteria. Pleural culture and cytology is pending. Although Klebsiella pneumoniae from synovial fluid is pansensitive, would continue broad gram-negative coverage pending pleural fluid cultures. MRSA nares is negative so this makes a MRSA pulmonary infection less likely. Vancomycin discontinued 04/23/24 Recommendations ; Continue cefepime 2 g IV every 12 hours (creatinine clearance 51) for left septic knee. IF no growth from pleural fluid culture or same Klebsiella pna as in knee grows, then deescalate to Ceftriaxone 2 g iv daily. Follow pleural culture and cytology Follow-up pending or report and synovial fluid/tissue cultures. ID will not round or review the chart over the weekend. Call covering provider at [facility] at [phone] with questions. ID coverage will return on service , Saturday04/27/24. Concepcion Mayen MD, MPH Infectious Disease [facility], [facility] Division Admission and Anticipated Discharge Date Admission Date: April 22, 2024 Subjective This patient recommendation is based on a telemedicine consult request which was completed asynchronously through chart review and information provided by the primary physician. The patient was not seen or examined today. The evaluation is consultative in nature and all patient care and treatment decisions can either be accepted or rejected by the patient's primary hospital-based treating physician using their own independent medical judgment for their patient. Time Spent Reviewing Chart: 21 - 30 minutes No Tele-presenter available for live tele follow up visit. E-consult completed via chart review Sp Thoracentesis, fluid is exudative. Results & Data Vital Signs (Past 12 Hours) Vital Signs Temp Pulse Pulse Resp BP Pulse Ox O2 Del Method 04/24/24 14:07 83 04/24/24 11:26 146/75 H 02/28/25 11:20 36.8 C 83 20 92 Oxymask 04/24/24 08:19 36.4 C L 89 18 171/67 H 93 Oxymask 04/24/24 08:15 Oxymask 04/24/24 07:29 87 04/24/24 03:13 36.7 C 89 22 146/75 H 95 Oxymask O2 Flow Rate 04/24/24 14:07 04/24/24 11:26 04/24/24 11:20 3 04/24/24 08:19 3 04/24/24 08:15 2 04/24/24 07:29 04/24/24 03:13 2 Laboratory Results Laboratory Results - last 48 hr 04/22/24 04/22/24 04/22/24 14:50 15:08 15:22 WBC 4.21 L RBC 2.10 L Hgb 7.1 L Hct 21.5 L MCV 102.4 H MCH 33.8 MCHC 33.0 RDW Std Deviation 64.1 H RDW Coeff of Jono 17.8 H Plt Count 196 MPV 10.0 Immature Gran % (Auto) 0.2 Neut % (Auto) 74.0 Lymph % (Auto) 15.9 [place] % (Auto) 9.7 Eos % (Auto) 0.2 Baso % (Auto) 0.0 Neut # (Auto) 3.11 Lymph # (Auto) 0.67 L [place] # (Auto) 0.41 Eos # (Auto) 0.01 Baso # (Auto) 0.00 Immature Gran # (Auto) 0.01 Absolute Nucleated RBC 0.02 Nucleated RBC % (auto) 0.5 Toxic Granulation 1+ Dohle Bodies 1+ Polychromasia 1+ PT 11.0 INR 1.0 APTT 23 PTT Ratio 0.9 VBG pH 7.43 H VBG pCO2 40 VBG pO2 38 VBG HCO3 27 VBG O2 Saturation 68.0 VBG Base Excess 2.0 Sodium 141 Potassium 4.4 Chloride 108 H Carbon Dioxide 27 Anion Gap 6 BUN 31 H Creatinine 1.49 H Est Cr Clr Drug Dosing 49.1 eGFR 48.04 BUN/Creatinine Ratio 20.8 H Glucose 44 L* POC Glucose Estimat Average Glucose Hemoglobin A1c Lactate 2.0 Calcium 8.2 L Magnesium 1.5 L Iron TIBC Transferrin Transferrin % Sat Total Bilirubin 0.3 Direct Bilirubin 0.1 AST 14 ALT 15 Alkaline Phosphatase 57 Lactate Dehydrogenase Troponin I High Sens 44.9 H B-Natriuretic Peptide Total Protein 5.2 L Albumin 2.3 L Globulin Albumin/Globulin Ratio Triglycerides Cholesterol LDL Cholesterol, Calc VLDL Cholesterol, Calc HDL Cholesterol Cholesterol/HDL Ratio Procalcitonin 0.16 TSH Urine Color Urine Appearance Urine pH Ur Specific [place] Urine Protein Urine Glucose (UA) Urine Ketones Urine Blood Urine Nitrite Urine Bilirubin Urine Urobilinogen Ur Leukocyte Esterase Urine WBC (Auto) Urine RBC (Auto) U Hyaline Cast (Auto) U Epithel Cells (Auto) Urine Bacteria (Auto) Fluid Neutrophils % Fluid Lymphocytes % Fluid [place]/Macro/[place] % Fluid Comment Pleural Fluid Source Pleural Color Pleural Appearance Pleural pH Pleural WBC (Auto) Pleural RBC (Auto) Pleural Total Protein Pleural LDH Pleural Glucose Pleural Amylase Synovial Source Synovial Color Synovial Appearance Synovial WBC (Auto) Synovial RBC (Auto) Synovial Polynuclear % Synovial Mononuclear % Nasal Screen MRSA (PCR) Stool Occult Bld Scrn Random Vancomycin SARS-CoV-2 (PCR) NEGATIVE Influenza Type A (PCR) Negative Influenza Type B (PCR) Negative RSV (RT-PCR) Negative Blood Type Antibody Screen Crossmatch 04/22/24 04/22/24 04/22/24 16:40 17:01 18:13 WBC RBC Hgb 6.8 L* Hct 21.4 L MCV MCH MCHC RDW Std Deviation RDW Coeff of Jono Plt Count MPV Immature Gran % (Auto) Neut % (Auto) Lymph % (Auto) [place] % (Auto) Eos % (Auto) Baso % (Auto) Neut # (Auto) Lymph # (Auto) [place] # (Auto) Eos # (Auto) Baso # (Auto) Immature Gran # (Auto) Absolute Nucleated RBC Nucleated RBC % (auto) Toxic Granulation Dohle Bodies Polychromasia PT INR APTT PTT Ratio VBG pH VBG pCO2 VBG pO2 VBG HCO3 VBG O2 Saturation VBG Base Excess Sodium Potassium Chloride Carbon Dioxide Anion Gap BUN Creatinine Est Cr Clr Drug Dosing eGFR BUN/Creatinine Ratio Glucose POC Glucose 126 H Estimat Average Glucose Hemoglobin A1c Lactate Calcium Magnesium Iron 31 L TIBC 206 L Transferrin 147 L Transferrin % Sat 15 L Total Bilirubin Direct Bilirubin AST ALT Alkaline Phosphatase Lactate Dehydrogenase Troponin I High Sens 41.6 H B-Natriuretic Peptide Total Protein Albumin Globulin Albumin/Globulin Ratio Triglycerides Cholesterol LDL Cholesterol, Calc VLDL Cholesterol, Calc HDL Cholesterol Cholesterol/HDL Ratio Procalcitonin TSH Urine Color Urine Appearance Urine pH Ur Specific [place] Urine Protein Urine Glucose (UA) Urine Ketones Urine Blood Urine Nitrite Urine Bilirubin Urine Urobilinogen Ur Leukocyte Esterase Urine WBC (Auto) Urine RBC (Auto) U Hyaline Cast (Auto) U Epithel Cells (Auto) Urine Bacteria (Auto) Fluid Neutrophils % Fluid Lymphocytes % Fluid Mes[place]/Macro/[place] % Fluid Comment Pleural Fluid Source Pleural Color Pleural Appearance Pleural pH Pleural WBC (Auto) Pleural RBC (Auto) Pleural Total Protein Pleural LDH Pleural Glucose Pleural Amylase Synovial Source Left Knee Synovial Color [place] Synovial Appearance Cloudy Synovial WBC (Auto) 26285 H Synovial RBC (Auto) 75442 Synovial Polynuclear % 94.2 Synovial Mononuclear % 5.8 Nasal Screen MRSA (PCR) Stool Occult Bld Scrn Random Vancomycin SARS-CoV-2 (PCR) Influenza Type A (PCR) Influenza Type B (PCR) RSV (RT-PCR) Blood Type AB Positive Antibody Screen NEGATIVE Crossmatch See Detail 04/22/24 04/22/24 04/22/24 20:31 23:12 23:41 WBC RBC Hgb Hct MCV MCH MCHC RDW Std Deviation RDW Coeff of Jono Plt Count MPV Immature Gran % (Auto) Neut % (Auto) Lymph % (Auto) [place] % (Auto) Eos % (Auto) Baso % (Auto) Neut # (Auto) Lymph # (Auto) [place] # (Auto) Eos # (Auto) Baso # (Auto) Immature Gran # (Auto) Absolute Nucleated RBC Nucleated RBC % (auto) Toxic Granulation Dohle Bodies Polychromasia PT INR APTT PTT Ratio VBG pH VBG pCO2 VBG pO2 VBG HCO3 VBG O2 Saturation VBG Base Excess Sodium Potassium Chloride Carbon Dioxide Anion Gap BUN Creatinine Est Cr Clr Drug Dosing eGFR BUN/Creatinine Ratio Glucose POC Glucose 246 H 235 H Estimat Average Glucose Hemoglobin A1c Lactate Calcium Magnesium Iron TIBC Transferrin Transferrin % Sat Total Bilirubin Direct Bilirubin AST ALT Alkaline Phosphatase Lactate Dehydrogenase Troponin I High Sens 37.8 H B-Natriuretic Peptide Total Protein Albumin Globulin Albumin/Globulin Ratio Triglycerides Cholesterol LDL Cholesterol, Calc VLDL Cholesterol, Calc HDL Cholesterol Cholesterol/HDL Ratio Procalcitonin TSH Urine Color Urine Appearance Urine pH Ur Specific [place] Urine Protein Urine Glucose (UA) Urine Ketones Urine Blood Urine Nitrite Urine Bilirubin Urine Urobilinogen Ur Leukocyte Esterase Urine WBC (Auto) Urine RBC (Auto) U Hyaline Cast (Auto) U Epithel Cells (Auto) Urine Bacteria (Auto) Fluid Neutrophils % Fluid Lymphocytes % Fluid Mes[place]/Macro/[place] % Fluid Comment Pleural Fluid Source Pleural Color Pleural Appearance Pleural pH Pleural WBC (Auto) Pleural RBC (Auto) Pleural Total Protein Pleural LDH Pleural Glucose Pleural Amylase Synovial Source Synovial Color Synovial Appearance Synovial WBC (Auto) Synovial RBC (Auto) Synovial Polynuclear % Synovial Mononuclear % Nasal Screen MRSA (PCR) Stool Occult Bld Scrn Random Vancomycin SARS-CoV-2 (PCR) Influenza Type A (PCR) Influenza Type B (PCR) RSV (RT-PCR) Blood Type Antibody Screen Crossmatch 04/23/24 04/23/24 04/23/24 02:03 05:25 06:27 WBC 5.22 RBC 2.83 L Hgb 9.2 L Hct 27.6 L MCV 97.5 MCH 32.5 MCHC 33.3 RDW Std Deviation 65.5 H RDW Coeff of Jono 19.2 H Plt Count 181 MPV 9.9 Immature Gran % (Auto) 0.4 Neut % (Auto) 60.7 Lymph % (Auto) 29.7 [place] % (Auto) 8.4 Eos % (Auto) 0.8 Baso % (Auto) 0.0 Neut # (Auto) 3.17 Lymph # (Auto) 1.55 [place] # (Auto) 0.44 Eos # (Auto) 0.04 Baso # (Auto) 0.00 Immature Gran # (Auto) 0.02 Absolute Nucleated RBC Nucleated RBC % (auto) Toxic Granulation Dohle Bodies Polychromasia PT INR APTT PTT Ratio VBG pH VBG pCO2 VBG pO2 VBG HCO3 VBG O2 Saturation VBG Base Excess Sodium 138 Potassium 4.5 Chloride 108 H Carbon Dioxide 27 Anion Gap 3 BUN 28 H Creatinine 1.32 Est Cr Clr Drug Dosing 49.9 eGFR 55.55 BUN/Creatinine Ratio 21.2 H Glucose 136 H POC Glucose 70 Estimat Average Glucose 163 Hemoglobin A1c 7.3 H Lactate Calcium 8.4 L Magnesium 1.8 Iron TIBC Transferrin Transferrin % Sat Total Bilirubin 0.6 Direct Bilirubin AST 14 ALT 15 Alkaline Phosphatase 58 Lactate Dehydrogenase Troponin I High Sens B-Natriuretic Peptide Total Protein 5.2 L Albumin 2.3 L Globulin 2.9 Albumin/Globulin Ratio 0.8 L Triglycerides 69 Cholesterol 75 LDL Cholesterol, Calc 20 VLDL Cholesterol, Calc 14 HDL Cholesterol 41 Cholesterol/HDL Ratio 1.8 Procalcitonin TSH 1.890 Urine Color Yellow Urine Appearance Clear Urine pH 5.5 Ur Specific [place] 1.015 Urine Protein 2+ H Urine Glucose (UA) Trace H Urine Ketones Negative Urine Blood Negative Urine Nitrite Negative Urine Bilirubin Negative Urine Urobilinogen Negative Ur Leukocyte Esterase Negative Urine WBC (Auto) 0-5 Urine RBC (Auto) 0-2 U Hyaline Cast (Auto) 0-2 U Epithel Cells (Auto) 0-2 Urine Bacteria (Auto) None Seen Fluid Neutrophils % Fluid Lymphocytes % Fluid [place]/Macro/[place] % Fluid Comment Pleural Fluid Source Pleural Color Pleural Appearance Pleural pH Pleural WBC (Auto) Pleural RBC (Auto) Pleural Total Protein Pleural LDH Pleural Glucose Pleural Amylase Synovial Source Synovial Color Synovial Appearance Synovial WBC (Auto) Synovial RBC (Auto) Synovial Polynuclear % Synovial Mononuclear % Nasal Screen MRSA (PCR) Negative Stool Occult Bld Scrn Negative Random Vancomycin SARS-CoV-2 (PCR) Influenza Type A (PCR) Influenza Type B (PCR) RSV (RT-PCR) Blood Type Antibody Screen Crossmatch 04/23/24 04/23/24 04/23/24 07:55 12:38 16:23 WBC RBC Hgb Hct MCV MCH MCHC RDW Std Deviation RDW Coeff of Jono Plt Count MPV Immature Gran % (Auto) Neut % (Auto) Lymph % (Auto) [place] % (Auto) Eos % (Auto) Baso % (Auto) Neut # (Auto) Lymph # (Auto) [place] # (Auto) Eos # (Auto) Baso # (Auto) Immature Gran # (Auto) Absolute Nucleated RBC Nucleated RBC % (auto) Toxic Granulation Dohle Bodies Polychromasia PT INR APTT PTT Ratio VBG pH VBG pCO2 VBG pO2 VBG HCO3 VBG O2 Saturation VBG Base Excess Sodium Potassium Chloride Carbon Dioxide Anion Gap BUN Creatinine Est Cr Clr Drug Dosing eGFR BUN/Creatinine Ratio Glucose POC Glucose 163 H 205 H 171 H Estimat Average Glucose Hemoglobin A1c Lactate Calcium Magnesium Iron TIBC Transferrin Transferrin % Sat Total Bilirubin Direct Bilirubin AST ALT Alkaline Phosphatase Lactate Dehydrogenase Troponin I High Sens B-Natriuretic Peptide Total Protein Albumin Globulin Albumin/Globulin Ratio Triglycerides Cholesterol LDL Cholesterol, Calc VLDL Cholesterol, Calc HDL Cholesterol Cholesterol/HDL Ratio Procalcitonin TSH Urine Color Urine Appearance Urine pH Ur Specific [place] Urine Protein Urine Glucose (UA) Urine Ketones Urine Blood Urine Nitrite Urine Bilirubin Urine Urobilinogen Ur Leukocyte Esterase Urine WBC (Auto) Urine RBC (Auto) U Hyaline Cast (Auto) U Epithel Cells (Auto) Urine Bacteria (Auto) Fluid Neutrophils % Fluid Lymphocytes % Fluid [place]/Mac[place] % Fluid Comment Pleural Fluid Source Pleural Color Pleural Appearance Pleural pH Pleural WBC (Auto) Pleural RBC (Auto) Pleural Total Protein Pleural LDH Pleural Glucose Pleural Amylase Synovial Source Synovial Color Synovial Appearance Synovial WBC (Auto) Synovial RBC (Auto) Synovial Polynuclear % Synovial Mononuclear % Nasal Screen MRSA (PCR) Stool Occult Bld Scrn Random Vancomycin SARS-CoV-2 (PCR) Influenza Type A (PCR) Influenza Type B (PCR) RSV (RT-PCR) Blood Type Antibody Screen Crossmatch 04/23/24 04/23/24 04/24/24 17:40 18:28 00:10 WBC RBC Hgb Hct MCV MCH MCHC RDW Std Deviation RDW Coeff of Jono Plt Count MPV Immature Gran % (Auto) Neut % (Auto) Lymph % (Auto) [place] % (Auto) Eos % (Auto) Baso % (Auto) Neut # (Auto) Lymph # (Auto) [place] # (Auto) Eos # (Auto) Baso # (Auto) Immature Gran # (Auto) Absolute Nucleated RBC Nucleated RBC % (auto) Toxic Granulation Dohle Bodies Polychromasia PT INR APTT PTT Ratio VBG pH VBG pCO2 VBG pO2 VBG HCO3 VBG O2 Saturation VBG Base Excess Sodium Potassium Chloride Carbon Dioxide Anion Gap BUN Creatinine Est Cr Clr Drug Dosing eGFR BUN/Creatinine Ratio Glucose POC Glucose 127 H Estimat Average Glucose Hemoglobin A1c Lactate Calcium Magnesium Iron TIBC Transferrin Transferrin % Sat Total Bilirubin 0.6 Direct Bilirubin AST ALT Alkaline Phosphatase Lactate Dehydrogenase 189 Troponin I High Sens B-Natriuretic Peptide Total Protein 5.0 L Albumin 2.4 L Globulin Albumin/Globulin Ratio Triglycerides Cholesterol LDL Cholesterol, Calc VLDL Cholesterol, Calc HDL Cholesterol Cholesterol/HDL Ratio Procalcitonin TSH Urine Color Urine Appearance Urine pH Ur Specific [place] Urine Protein Urine Glucose (UA) Urine Ketones Urine Blood Urine Nitrite Urine Bilirubin Urine Urobilinogen Ur Leukocyte Esterase Urine WBC (Auto) Urine RBC (Auto) U Hyaline Cast (Auto) U Epithel Cells (Auto) Urine Bacteria (Auto) Fluid Neutrophils % 82 Fluid Lymphocytes % 9 Fluid [place]/Macro/[place] % 9 Fluid Comment Pleural Fluid Source Left Lung Pleural Color Yellow Pleural Appearance Hazy Pleural pH 7.27 L Pleural WBC (Auto) 717 Pleural RBC (Auto) 8000 Pleural Total Protein < 3.0 Pleural LDH 2548 Pleural Glucose 99 Pleural Amylase 15 Synovial Source Synovial Color Synovial Appearance Synovial WBC (Auto) Synovial RBC (Auto) Synovial Polynuclear % Synovial Mononuclear % Nasal Screen MRSA (PCR) Stool Occult Bld Scrn Random Vancomycin SARS-CoV-2 (PCR) Influenza Type A (PCR) Influenza Type B (PCR) RSV (RT-PCR) Blood Type Antibody Screen Crossmatch 04/24/24 04/24/24 04/24/24 03:24 06:26 11:18 WBC RBC Hgb Hct MCV MCH MCHC RDW Std Deviation RDW Coeff of Jono Plt Count MPV Immature Gran % (Auto) Neut % (Auto) Lymph % (Auto) [place] % (Auto) Eos % (Auto) Baso % (Auto) Neut # (Auto) Lymph # (Auto) [place] # (Auto) Eos # (Auto) Baso # (Auto) Immature Gran # (Auto) Absolute Nucleated RBC Nucleated RBC % (auto) Toxic Granulation Dohle Bodies Polychromasia PT INR APTT PTT Ratio VBG pH VBG pCO2 VBG pO2 VBG HCO3 VBG O2 Saturation VBG Base Excess Sodium Potassium Chloride Carbon Dioxide Anion Gap BUN Creatinine 1.29 Est Cr Clr Drug Dosing 51.1 eGFR 57.11 BUN/Creatinine Ratio Glucose POC Glucose 117 H 126 H Estimat Average Glucose Hemoglobin A1c Lactate Calcium Magnesium Iron TIBC Transferrin Transferrin % Sat Total Bilirubin Direct Bilirubin AST ALT Alkaline Phosphatase Lactate Dehydrogenase Troponin I High Sens B-Natriuretic Peptide 1076 H Total Protein Albumin Globulin Albumin/Globulin Ratio Triglycerides Cholesterol LDL Cholesterol, Calc VLDL Cholesterol, Calc HDL Cholesterol Cholesterol/HDL Ratio Procalcitonin TSH Urine Color Urine Appearance Urine pH Ur Specific [place] Urine Protein Urine Glucose (UA) Urine Ketones Urine Blood Urine Nitrite Urine Bilirubin Urine Urobilinogen Ur Leukocyte Esterase Urine WBC (Auto) Urine RBC (Auto) U Hyaline Cast (Auto) U Epithel Cells (Auto) Urine Bacteria (Auto) Fluid Neutrophils % Fluid Lymphocytes % Fluid [place]/Mac[place] % Fluid Comment Pleural Fluid Source Pleural Color Pleural Appearance Pleural pH Pleural WBC (Auto) Pleural RBC (Auto) Pleural Total Protein Pleural LDH Pleural Glucose Pleural Amylase Synovial Source Synovial Color Synovial Appearance Synovial WBC (Auto) Synovial RBC (Auto) Synovial Polynuclear % Synovial Mononuclear % Nasal Screen MRSA (PCR) Stool Occult Bld Scrn Random Vancomycin 14.1 SARS-CoV-2 (PCR) Influenza Type A (PCR) Influenza Type B (PCR) RSV (RT-PCR) Blood Type Antibody Screen Crossmatch Diagnostic Findings Microbiology 04/23/24 17:40 Pleural Fluid Gram Stain - Final 04/23/24 17:40 Pleural Fluid Aerobic and Anaerobic Culture - Preliminary No growth to date. 04/22/24 16:40 Knee,Left Gram Stain - Final 04/22/24 16:40 Knee,Left Aerobic and Anaerobic Culture - Preliminary Klebsiella pneumoniae 04/22/24 15:08 Blood Aerobic Blood Culture - Preliminary No growth in Aerobic bottle after 24 hours. 04/22/24 15:08 Blood Anaerobic Blood Culture - Preliminary No growth in Anaerobic bottle after 24 hours. 04/22/24 14:50 Blood Aerobic Blood Culture - Preliminary No growth in Aerobic bottle after 24 hours. 04/22/24 14:50 Blood Anaerobic Blood Culture - Preliminary No growth in Anaerobic bottle after 24 hours. Chest X-Ray 04/22/24 14:38 XR chest 1V portable CLINICAL HISTORY: Sepsis COMPARISON STUDY: 04/07/2024 FINDINGS: Stable cardiomegaly with mild pulmonary vascular congestion. There is small to moderate left pleural effusion, increased. There is increased consolidation at the left lung base. Stable diffuse pulmonary interstitial opacities otherwise. IMPRESSION: Increased pleural effusion and consolidation on the left. ACT 112: Negative or not required by law. Electronically signed by: Keith Burger M.D. 04/22/2024 3:38 PM Chest X-Ray 04/23/24 17:36 EXAM: Radiograph of the Chest 1 View INDICATION: Left thoracentesis TECHNIQUE: Frontal view of the chest. Image obtained at 5:40 PM COMPARISON: 04/07/2024 FINDINGS: Lungs and pleural spaces: Loculated left pleural effusion is slightly decreased. Stable coarse consolidation in the left midlung and worsening generalized interstitial and patchy airspace infiltrates throughout the right lung. No pneumothorax. Heart: Stable large cardiac shadow. Mediastinum: Normal contour. Bones/joints: No fracture, erosion or dislocation. Soft tissues: No abnormality noted. No radiopaque foreign body noted. Lymph nodes: Oval calcification projects over the left mainstem bronchus which could be artifactual or a node. Upper abdomen: No abnormality noted. IMPRESSION: 1. Slight decrease loculated left pleural effusion. No pneumothorax. 2. Worsening interstitial and airspace infiltrates may reflect developing alveolar edema and/or pneumonia. ACT 112: Negative or not required by law. Electronically signed by Roselyn Leal 04-23-2024 6:17 PM Medications Administered Home Medications Medication Instructions Recorded Confirmed Last Taken pantoprazole 40 mg tablet,delayed 40 mg PO BID 12/23/18 04/22/24 05/02/22 release (Protonix) CPAP Machine #1 ea 04/22/19 04/22/24 Unknown CPAP Supplies #1 ea 04/22/19 04/22/24 Unknown CPAP Machine #1 ea 08/10/19 04/22/24 Unknown albuterol sulfate 90 mcg/actuation 2 puffs inhalation Q6H PRN 08/10/19 04/22/24 Unknown aerosol inhaler (Ventolin HFA) shortness of breath or wheezing #8.5 grams citalopram 40 mg tablet (Celexa) 60 mg PO QAM 04/04/21 04/22/24 05/02/22 aspirin 325 mg tablet 325 mg PO DAILY 07/27/21 04/22/24 05/02/22 benzonatate 200 mg capsule 200 mg PO Q8H PRN cough 01/08/23 04/22/24 Unknown insulin degludec 100 unit/mL (3 34 unit subcut QAM diabetes 01/08/23 04/22/24 Unknown mL) subcutaneous pen (Tresiba FlexTouch U-100 insulin) linaclotide 290 mcg capsule 290 mcg PO DAILY 01/08/23 04/22/24 Unknown (Linzess) nitroglycerin 0.4 mg sublingual 0.4 mg sublingual Q5M PRN Chest 01/08/23 04/22/24 Unknown tablet (Nitrostat) Pain fluticasone furoate 50 1 inh inhalation DAILY 07/30/23 04/22/24 Unknown mcg-vilanterol 25 mcg/dose inhalation powder (Breo Ellipta) clopidogrel 75 mg tablet 75 mg PO DAILY 02/28/24 04/22/24 Unknown gabapentin 800 mg tablet 800 mg PO TID 02/28/24 04/22/24 Unknown ondansetron 8 mg disintegrating 8 mg PO Q8 PRN N/V 02/28/24 04/22/24 Unknown tablet oxycodone 5 mg tablet 5 mg PO .EVERY 4-6 HRS PRN Pain 02/28/24 04/22/24 Unknown magnesium oxide 400 mg PO DAILY #14 tabs 03/01/24 04/22/24 Unknown insulin NPH isoph U-100 human 100 15 unit (0.15 mL) subcut .COMPLEX 03/23/24 04/22/24 Unknown unit/mL (3 mL) subcutaneous pen #15 mL (Humulin N NPH U-100 Insulin KwikPen) insulin aspart 10 unit subcut AC 04/22/24 04/22/24 Unknown (niacinamide)(U-100) 100 unit/mL(3 mL) subcutaneous pen (Fiasp FlexTouch U-100 Insulin) rosuvastatin 40 mg tablet 40 mg PO DAILY 04/22/24 04/22/24 Unknown Active Medications Generic Name Dose Route Start Last Admin Trade Name Freq PRN Reason Stop Dose Admin Citalopram Hydrobromide 60 mg 04/23/24 09:00 04/24/24 08:27 Citalopram 20 Mg Tab PO 05/23/24 08:59 60 mg QAM MONI Administration Gabapentin 600 mg 04/22/24 21:00 04/24/24 14:05 Gabapentin 600 Mg Tab PO 05/22/24 20:59 Not Given TID MONI Cefepime HCl 2,000 mg in 20 mls @ 5 mls/min 04/23/24 04:00 04/24/24 03:18 Maxipime 2000mg IV 04/30/24 03:59 5 mls/min Q12H MONI Administration Protocol Linaclotide 290 mcg 04/23/24 09:00 04/24/24 08:26 Linaclotide 145 Mcg Capsule PO 05/23/24 08:59 290 mcg DAILY MONI Administration Magnesium Oxide 400 mg 04/23/24 09:00 04/24/24 08:26 Magnesium Oxide 400 Mg Tab PO 05/23/24 08:59 400 mg DAILY MONI Administration Miscellaneous 1 each 04/23/24 00:00 04/24/24 07:23 Order Awaiting Action Breo Ellipta 50_25 N/A 05/23/24 00:00 Not Given QS MONI Oxycodone HCl 5 mg 04/22/24 18:20 04/23/24 20:04 Oxycodone Hcl Ir 5 Mg Tab (Immediate Release) PO 05/06/24 18:19 5 mg Q6 PRN Administration Pain Pantoprazole Sodium 40 mg 04/22/24 21:00 04/24/24 08:26 Pantoprazole 40 Mg Tab PO 05/22/24 20:59 40 mg BID MONI Administration Rosuvastatin Calcium 40 mg 04/23/24 09:00 04/24/24 08:27 Rosuvastatin Calcium 20 Mg Tab PO 05/23/24 08:59 40 mg DAILY MONI Administration
[2024-04-24] MEDS ORDERED: PROPOFOL IV EMULSION 10 MG/ML 20 ML VIAL IV ONE (15:03)
[2024-04-24] MEDS ORDERED: LIDOCAINE 2% 2 ML VIAL/AMP(20MG/ML) INFIL ONE (15:03)
[2024-04-24] MEDS ORDERED: fentaNYL citrate PF 100 MCG/2 ML VIAL ONE (15:03)
[2024-04-24] MEDS ORDERED: ONDANSETRON INJ 2 MG/ML 2 ML VIAL ONE (15:03)
[2024-04-24] MEDS: FUROSEMIDE 40 MG/4 ML VIAL IV ONE (15:04)
[2024-04-24] MEDS: SODIUM CHLORIDE 0.9% 1,000 ML IV SCH (17:11)
[2024-04-24] MEDS ORDERED: ONDANSETRON INJ 2 MG/ML 2 ML VIAL IV PRN (17:14)
[2024-04-24] MEDS ORDERED: ATROPINE SULFATE 0.1 MG/ML 10ML SYR IV PRN (17:14)
[2024-04-24] MEDS ORDERED: ePHEDrine sulfate 50 MG/ML AMP IV PRN (17:14)
[2024-04-24] MEDS ORDERED: NALOXONE HCL 0.4 MG/1 ML VIAL/CARP IV PRN (17:14)
[2024-04-24] MEDS ORDERED: LABETALOL HCL IV 5 MG/ML 20ML IV PRN (17:14)
[2024-04-24] MEDS ORDERED: PROMETHAZINE HCL 6.25 MG in SODIUM CHLORIDE 0.9% 50 ML IV PRN (17:14)
[2024-04-24] MEDS ORDERED: FLUMAZENIL 0.1 MG/1 ML 10 ML VIAL IV PRN (17:14)
--- NOTE | 2024-04-24 17:14 | Anesthesiology Consultation ---
Date of Service April 24, 2024 Assessment & Plan Chart Review Chart Review: Acceptable Risk for Surgery and Patient NOT seen in Pre Admission Testing Consults Requested none ASA ASA4 Proposed Anesthesia Anesthesia Type: General Risk / Benefits Reviewed With: PT / POA / Parent / Guardian, Accepts Plan and Informed Consent Obtained History Surgery Operation Date: 04/24/24 08:00 Proposed Procedures p Left Knee Arthroscopic Debridement - Kvng Kumari MD Height/Weight Height: 5 ft 11 in Weight: 87.7 kg Allergies Allergy/AdvReac Type Severity Reaction Status Date / Time adhesive Allergy Mild Silk/plastic Verified 03/23/24 09:58 adhesive tape (redness, blistering) Sulfa (Sulfonamide AdvReac Intermediate nausea & Verified 03/23/24 09:58 Antibiotics) vomiting Medications Home Medications Medication Instructions Recorded Confirmed Last Taken pantoprazole 40 mg tablet,delayed 40 mg PO BID 12/23/18 04/22/24 05/02/22 release (Protonix) CPAP Machine #1 04/22/19 04/22/24 Unknown CPAP Supplies #1 04/22/19 04/22/24 Unknown CPAP Machine #1 08/10/19 04/22/24 Unknown albuterol sulfate 90 mcg/actuation 2 puffs inhalation Q6H PRN 08/10/19 04/22/24 Unknown aerosol inhaler (Ventolin HFA) shortness of breath or wheezing #8.5 grams citalopram 40 mg tablet (Celexa) 60 mg PO QAM 04/04/21 04/22/24 05/02/22 aspirin 325 mg tablet 325 mg PO DAILY 07/27/21 04/22/24 05/02/22 benzonatate 200 mg capsule 200 mg PO Q8H PRN cough 01/08/23 04/22/24 Unknown insulin degludec 100 unit/mL (3 34 unit subcut QAM diabetes 01/08/23 04/22/24 Unknown mL) subcutaneous pen (Tresiba FlexTouch U-100 insulin) linaclotide 290 mcg capsule 290 mcg PO DAILY 01/08/23 04/22/24 Unknown (Linzess) nitroglycerin 0.4 mg sublingual 0.4 mg sublingual Q5M PRN Chest 01/08/23 04/22/24 Unknown tablet (Nitrostat) Pain fluticasone furoate 50 1 inh inhalation DAILY 07/30/23 04/22/24 Unknown mcg-vilanterol 25 mcg/dose inhalation powder (Breo Ellipta) clopidogrel 75 mg tablet 75 mg PO DAILY 02/28/24 04/22/24 Unknown gabapentin 800 mg tablet 800 mg PO TID 02/28/24 04/22/24 Unknown ondansetron 8 mg disintegrating 8 mg PO Q8 PRN N/V 02/28/24 04/22/24 Unknown tablet oxycodone 5 mg tablet 5 mg PO .EVERY 4-6 HRS PRN Pain 02/28/24 04/22/24 Unknown magnesium oxide 400 mg PO DAILY #14 tabs 03/01/24 04/22/24 Unknown insulin NPH isoph U-100 human 100 15 unit (0.15 mL) subcut .COMPLEX 03/23/24 04/22/24 Unknown unit/mL (3 mL) subcutaneous pen #15 mL (Humulin N NPH U-100 Insulin KwikPen) insulin aspart 10 unit subcut AC 04/22/24 04/22/24 Unknown (niacinamide)(U-100) 100 unit/mL(3 mL) subcutaneous pen (Fiasp FlexTouch U-100 Insulin) rosuvastatin 40 mg tablet 40 mg PO DAILY 04/22/24 04/22/24 Unknown Active Medications Generic Name Dose Route Start Last Admin Trade Name Raviq PRN Reason Stop Dose Admin Citalopram Hydrobromide 60 mg 04/23/24 09:00 04/24/24 08:27 Citalopram 20 Mg Tab PO 05/23/24 08:59 60 mg QAM MONI Administration Gabapentin 600 mg 04/22/24 21:00 04/24/24 14:05 Gabapentin 600 Mg Tab PO 05/22/24 20:59 Not Given TID MONI Cefepime HCl 2,000 mg in 20 mls @ 5 mls/min 04/23/24 04:00 04/24/24 15:08 Maxipime 2000mg IV 04/30/24 03:59 5 mls/min Q12H MONI Administration Protocol Sodium Chloride 1,000 mls @ 15 mls/hr 04/24/24 17:15 04/24/24 17:11 Nss IV 04/25/24 17:14 15 mls/hr .Q24H MONI Administration Linaclotide 290 mcg 04/23/24 09:00 02/28/25 08:26 Linaclotide 145 Mcg Capsule PO 05/23/24 08:59 290 mcg DAILY MONI Administration Magnesium Oxide 400 mg 04/23/24 09:00 04/24/24 08:26 Magnesium Oxide 400 Mg Tab PO 05/23/24 08:59 400 mg DAILY MONI Administration Miscellaneous 1 each 04/23/24 00:00 04/24/24 15:17 Order Awaiting Action Breo Ellipta 50_25 N/A 05/23/24 00:00 Not Given QS MONI Oxycodone HCl 5 mg 04/22/24 18:20 04/24/24 15:04 Oxycodone Hcl Ir 5 Mg Tab (Immediate Release) PO 05/06/24 18:19 5 mg Q6 PRN Administration Pain Pantoprazole Sodium 40 mg 04/22/24 21:00 04/24/24 08:26 Pantoprazole 40 Mg Tab PO 05/22/24 20:59 40 mg BID MONI Administration Rosuvastatin Calcium 40 mg 04/23/24 09:00 04/24/24 08:27 Rosuvastatin Calcium 20 Mg Tab PO 05/23/24 08:59 40 mg DAILY MONI Administration NPO Date Last Intake of Fluids: 04/23/24 Time Last Intake of Fluids: 20:00 Date Last Intake of Solids: 04/23/24 Time Last Intake of Solids: 18:00 Past Medical History Medical History Paroxysmal A-fib Stage 3b chronic kidney disease Stroke Immediately after spinal fusion 04/2019---went into kidney failure at the same time > only deficit is sometimes he "dribbles out of the left side of his mouth" CAD (coronary artery disease) angioplasty/KARRIE to pRCA (2014) Synergy stent (11/03/2020) after failed stress test Acute and chronic respiratory failure with hypercapnia Hyperkalemia Urinary retention Hypoxia Somnolence Arthritis Urinary problem urinary hesitancy Spinal stenosis Diabetes IDDM Sleep apnea awaiting CPAP Hypertension Carotid arterial disease "no ICA stenosis.. severe left ECA stenosis" per cardiology office visit note 03/2019 > follows with Dr. Reyes in [place] Interstitial lung disease Exercise / Class Metabolic Activity III < 4 Walking/Shop/Light housework Past Family History Family History Mother Diabetes Heart disease Cancer Lung cancer Father Cancer Oral cancer Other No family history of adverse response to anesthesia Past Surgical History Surgical History History of elbow surgery right History of melanoma excision History of lumbar spinal fusion L5-S1 decompression/fusion (09/17/19): Grade view 2, Glidescope#3, ETT 8.0 at [facility] Status post lumbar surgery History of arthroscopy of right shoulder History of colonoscopy History of tonsillectomy History of hernia surgery X2 History of thumb surgery R/L History of repair of left rotator cuff History of cardiac cath stent x1 (2014) Synergy stent x1 (11/03/2020) Past Anesthesia History No Hx of Anesthesia Complications and No Family Hx of Anesthesia Complications History of PONV No Hx of PONV and No Hx of Motion Sickness Social History Smoking Status: Current every day smoker tobacco type: cigarettes Smoking cigarettes per day: A pack Do You Dip or Chew Tobacco: No Hx Alcohol Use: No Alcohol type: beer and hard liquor alcohol intake frequency: holidays/special occasions only Hx Substance Use: No substance use type: does not use Physical Exam Vital Signs Last Vital Signs Temp 36.4 C L 04/24/24 16:54 Pulse 82 04/24/24 16:54 Resp 20 04/24/24 16:54 BP 161/65 H 04/24/24 16:54 Pulse Ox 95 04/24/24 16:54 O2 Del Method Oxymask 04/24/24 16:54 O2 Flow Rate 2 04/24/24 16:54 Constitutional + obese; no acute distress ENMT Mouth: + dentition abnormality and + poor dentition Thyromental Distance: > or= 3.5 Finger Breadths Mallampati Class: II Neck normal visual inspection; + trachea not midline and neck extension not limited Respiratory normal respiratory effort Auscultation: + diminished lung sounds and + crackles Cardiovascular Rate/Rhythm: regular rate and regular rhythm Heart Sounds: no murmur Vessels: no carotid bruit Musculoskeletal Spine: normal cervical ROM and no pain with cervical ROM Extremities: full ROM of extremities Neurologic moves all extremities Motor/Sensory: no sensory deficit Psychiatric Orientation: alert and oriented x 3 Testing Laboratory Results 04/23/24 06:27 04/24/24 06:26 PT 11.0 Seconds (9.0-12.0) 04/22/24 14:50 INR 1.0 (0.9-1.1) 04/22/24 14:50 APTT 23 Seconds (21-31) 04/22/24 14:50 Hemoglobin A1c 7.3 % (4.5-5.6) H 04/23/24 06:27 Urine Color Yellow 04/23/24 02:03 Urine Appearance Clear (Clear) 04/23/24 02:03 Urine pH 5.5 (4.5-7.5) 04/23/24 02:03 Ur Specific [place] 1.015 (1.000-1.030) 04/23/24 02:03 Urine Protein 2+ (Negative) H 04/23/24 02:03 Urine Glucose (UA) Trace (Negative) H 04/23/24 02:03 Urine Ketones Negative (Negative) 04/23/24 02:03 Urine Nitrite Negative (Negative) 04/23/24 02:03 Ur Leukocyte Esterase Negative (Negative) 04/23/24 02:03 Urine WBC (Auto) 0-5 /hpf (0-5) 04/23/24 02:03 Urine RBC (Auto) 0-2 /hpf (0-2) 04/23/24 02:03 U Hyaline Cast (Auto) 0-2 /lpf (0-2) 04/23/24 02:03 U Epithel Cells (Auto) 0-2 /hpf (0-2) 04/23/24 02:03 Urine Bacteria (Auto) None Seen (None Seen) 04/23/24 02:03 Blood Type AB Positive 04/22/24 17:01 Antibody Screen NEGATIVE 04/22/24 17:01 04/22/24 15:08 Aerobic Blood Culture - Preliminary Blood No growth in Aerobic bottle after 48 hours. Anaerobic Blood Culture - Preliminary No growth in Anaerobic bottle after 48 hours. 04/22/24 14:50 Aerobic Blood Culture - Preliminary Blood No growth in Aerobic bottle after 48 hours. Anaerobic Blood Culture - Preliminary No growth in Anaerobic bottle after 48 hours. 04/23/24 17:40 Gram Stain - Final Pleural Fluid Aerobic and Anaerobic Culture - Preliminary No growth to date. 04/22/24 16:40 Gram Stain - Final Knee,Left Aerobic and Anaerobic Culture - Preliminary Klebsiella pneumoniae 04/24/24 04/24/24 16:00 11:18 POC Glucose 124 H 126 H Electrocardiogram Date: 04/22/24 Findings: + NSR @ (@ 92;prolonged QT;T wave abnl) Chest X-Ray Date: 04/23/24 Findings: + infiltrate (B/L infiltrates;) and + pleural effusion Echocardiogram Date: 04/23/24 EF: 60% LV Function: normal RWMA: + none Other Findings: + diastolic dysfunction (Grade 2) Valvular Disease: + no significant valvular disease and + MR (mild)
[2024-04-24] MEDS ORDERED: ePHEDrine sulfate 50 MG/ML AMP ONE (17:39)
[2024-04-24] MEDS ORDERED: PHENYLEPHRINE 100MCG/ML 5ML SYR ONE ×2 (17:39→18:16)
[2024-04-24] MEDS: BUPIVACAINE/EPINEPHRINE 0.5% MPF 1:200,000 30 ML VIAL ONE (18:28)
[2024-04-24] MEDS: fentaNYL citrate PF 100 MCG/2 ML VIAL IV PRN (18:49)
--- NOTE | 2024-04-24 19:00 | Operative Report ---
PG Post Operative Report Pre & Post Diagnosis Operation Date: 04/24/24 08:00 Pre-Op Diagnosis: (1) Septic joint of left knee joint: (2) Pseudogout of left knee: Post-Op Diagnosis: (1) Septic joint of left knee joint: (2) Pseudogout of left knee: I identified the patient and participated in the time-out.: Yes Procedure Operation Date: 04/24/24 08:00 Actual Procedures p Left Knee Arthroscopic Debridement and synovectomy (Left) - Kvng Kumari MD Surgeon Kvng Kumari MD Sales Support Engineer David Rivas PA-C Estimated Blood Loss 25 Findings See Below EUA demonstrated full range of motion. Moderate effusion. Arthroscopy revealed extensive synovitis and expected inflamed synovium and seropurulent joint fluid. 10 L of arthroscopic gavage was completed with extensive debridement through the suprapatella pouch, all 3 compartments, intracondylar notch, and the medial and lateral gutters. Specimens Tissue specimen for culture left knee synovium Drains 1. MILES left knee intra-articular Anesthesia Type General Complications none Disposition Accompanied Patient To Recovery: No Disposition: Recovery Room Indications 78-year-old male admitted with progressive knee pain and effusion with an aspirate that revealed Klebsiella species. He was initiated on antibiotics and optimize the medicine and eventually cleared by anesthesia to proceed with arthroscopic irrigation and debridement to eradicate the infection. I reviewed the risk, benefits and alternatives in detail. The patient and his are agreed proceed with surgery to treat the infection. Informed consent was obtained today in the hospital room. Description of Procedure On the day of surgery, the patient was greeted in the preoperative holding area. The informed consent was reviewed and confirmed. The surgical site was identified by the patient and signed by myself. The patient was turned over to the anesthesia team. The patient was taken to the operating room and placed upon the OR table. Anesthesia was induced. The position was supine for knee arthroscopy with a lateral post. All bony prominences were well-padded and protected. A nonsterile tourniquet was placed high on the thigh with barrier drape. Brief timeout was called to anesthetize the knee. Total of 20 cc 0.5% Marcaine were used to anesthetize the medial lateral portals as well as suprapatellar portal. The operative extremity was prepped and draped in usual sterile fashion for knee arthroscopy. Surgical timeout was called by the circulating nurse, and verified by all present. Antibiotics had been infused, and the equipment was available and functional. Using superficial landmarks, the lateral portal was established using a #11 blade. The trocar was used to enter the joint. The camera was then introduced. The medial portal was established using arthroscopic visualization and spinal needle for localization. The capsulotomy performed using an 11 blade under arthroscopic visualization. A probe was introduced, and thorough diagnostic arthroscopy was carried out revealing the findings listed above. The motorized shaver was introduced and used to perform a complete synovectomy, starting the suprapatella pouch and carrying through the medial and lateral gutters and into the anterior compartment. All areas of synovitis were debrided. The intracondylar notch was also debrided. A synovium specimen was obtained using the arthroscopic grasper from the suprapatellar pouch. Attention was directed to the medial compartment. Extensive chondrosis and meniscal degeneration. Motorized shaver was used to remove all synovitis and meniscal fraying. The lateral compartment was entered in the [id number] position. Similarly, extensive chondrosis some somewhat preserved meniscus. Thoroughly irrigated and debrided of all inflamed synovium about the capsule. The anterior compartment was addressed. Extensive chondrosis was evident and there was some synovium remaining about the patella which is debrided back to stable margins. The diagnostic arthroscopy was repeated to ensure no missed pathology nor loose debris. The MILES drain was entered through the lateral portal and puncturing through the lateral suprapatella portal region. It was connected to a suction drain which was sealed well. The knee was then thoroughly irrigated with arthroscopic fluid and drained through the arthroscopic cannula before removal of all instruments. The wounds were then closed with interrupted 3-0 Monocryl suture, backed up by Steri-Strips. Drain was sewn in with a Monocryl as well. The wounds were dressed with sterile Xeroform, sterile gauze, ABD, and contained by web roll followed by an Gentry wrap. The patient tolerated the procedure well, was extubated in the operating room without complication, and transferred to the recovery area in stable condition. Disposition: The patient will be weightbearing and range of motion as tolerated. Can be evaluated by PT and OT for mobilization. He will remain an inpatient until further improvement in his medical status and a final antibiotic plan is established. Drain will be monitored and pulled when less than 30 cc per shift x 2 shift. Routine postoperative pain medication and early ambulation for DVT prophylaxis were prescribed. In addition, Lashaun recommended daily Aspirin 325mg to reduce the risk of venous thromboembolism. Follow-up is scheduled in 10 to 14 days for postoperative examination. Physician security assistant attestation: David Rivas PA-C was present and scrubbed for the duration of the case. Skilled assistance was essential to prepping/draping, patient positioning, retraction, and assistance with wound closure. I attest to the content of the Intraoperative Record and any orders documented therein. Any exceptions are noted below.
[2024-04-24] MEDS ORDERED: ALBUTEROL HFA 8 GM INHALER INH PRN (19:35)
[2024-04-24] MEDS ORDERED: NITROGLYCERIN SL 0.4 MG/TAB TAB SL PRN (19:35)
[2024-04-24] MEDS ORDERED: NON-FORMULARY MEDICATION (Cpap Machine misc) SCH ×2 (19:35)
[2024-04-24] MEDS ORDERED: NON-FORMULARY MEDICATION (Insulin Nph Isoph U-100 Human [Humulin N Nph Insulin Kwikpen] 10 SQ SCH (19:35)
[2024-04-24] MEDS ORDERED: NON-FORMULARY MEDICATION (Cpap Supplies misc) SCH (19:35)
[2024-04-24] MEDS ORDERED: BENZONATATE 100 MG CAPSULE PO PRN (19:35)
[2024-04-24] MEDS ORDERED: ONDANSETRON 4 MG OD TAB PO PRN (19:46)
--- NOTE | 2024-04-24 19:49 | Anesthesiology Progress Note ---
Date of Service April 24, 2024 Anesthesia Post Procedure Vital Signs Vital Signs: Temp Pulse Pulse Pulse Resp BP Pulse Ox 04/24/24 19:35 36.5 C 91 H 16 137/83 90 04/24/24 19:10 36.1 C L 04/24/24 19:00 88 18 145/71 H 97 04/24/24 18:50 86 19 149/71 H 95 04/24/24 18:41 36.0 C L 86 19 139/88 95 04/24/24 16:54 36.4 C L 82 20 161/65 H 95 04/24/24 16:02 37.1 C 83 18 162/75 H 94 04/24/24 14:07 83 04/24/24 11:26 146/75 H 04/24/24 11:20 36.8 C 83 20 92 04/24/24 08:19 36.4 C L 89 18 171/67 H 93 04/24/24 08:15 04/24/24 07:29 87 04/24/24 03:13 36.7 C 89 22 146/75 H 95 04/23/24 22:46 36.8 C 78 20 116/79 95 04/23/24 21:41 86 04/23/24 20:00 O2 Del Method O2 Flow Rate 04/24/24 19:35 Nasal Cannula 2 04/24/24 19:10 04/24/24 19:00 Oxymask 2 04/24/24 18:50 Oxymask 2 04/24/24 18:41 Oxymask 2 04/24/24 16:54 Oxymask 2 04/24/24 16:02 Oxymask 3 04/24/24 14:07 04/24/24 11:26 04/24/24 11:20 Oxymask 3 04/24/24 08:19 Oxymask 3 04/24/24 08:15 Oxymask 2 04/24/24 07:29 04/24/24 03:13 Oxymask 2 04/23/24 22:46 Oxymask 2 04/23/24 21:41 04/23/24 20:00 Oxymask 3 Pain Intensity Left Knee: Pain Intensity: 10 Transfer of Care Handoff Completed per policy Notes Mental Status: alert / awake / arousable and participated in evaluation Patient Amnestic to Procedure: Yes Nausea / Vomiting: adequately controlled Pain: adequately controlled Airway Patency, RR, SpO2: stable & adequate BP & HR: stable & adequate Hydration State: stable & adequate Anesthetic Complications: no major complications apparent
[2024-04-24] MEDS: FORMOTEROL 20 MCG/2 ML VIAL NEB SCH (20:32)
[2024-04-24] MEDS: BUDESONIDE 0.25 MG/2 ML VIAL (PULMICORT) NEB SCH (20:32)
[2024-04-24] MEDS: PANTOprazole 40 MG TAB PO SCH (21:02)
[2024-04-25 06:57] LABS: Hematocrit (blood only) 29.4 % (42.0-52.0); Hemoglobin 9.6 g/dl (14.0-18.0); Mean Corpuscular Hemoglobin 31.7 pg (25.0-34.0); Mean Corpuscular Hgb Conc 32.7 g/dL (32.0-36.0); Mean Platelet Volume 9.9 fL (9.4-12.4); Nucleated RBC # (auto) 0.02 K/uL (0.00-0.12); Nucleated RBC % (auto) 0.3 %; Platelet Count 143 K/uL (130-400); RDW Coefficient of Variation 17.2 % (11.5-14.5); RDW Standard Deviation 60.1 fL (36.4-46.3); Red Blood Count 3.03 M/uL (4.70-6.10); White Blood Count 6.31 K/ul (4.8-10.8)
[2024-04-25 07:24] LABS: BUN Creatinine Ratio 18.9 (10-20); Calcium 8.1 mg/dl (8.6-10.3); Creatinine Clr Calc Pharmacy 44.5 ml/min; Potassium 4.4 mmol/L (3.5-5.1)
[2024-04-25] MEDS: INSULIN ASPART PER UNIT CHARGE SQ SCH (08:04)
[2024-04-25] MEDS: LANTUS PER UNIT CHARGE SQ SCH (08:05)
[2024-04-25] MEDS: CLOPIDOGREL BISULFATE 75 MG TAB PO SCH (08:12)
[2024-04-25] MEDS: ASPIRIN 325 MG ECTAB PO SCH (08:12)
[2024-04-25] MEDS: FUROSEMIDE 40 MG/4 ML VIAL IV SCH (08:14)
--- NOTE | 2024-04-25 08:52 | Pulmonology Progress Note ---
Date of Service April 25, 2024 Assessment & Plan (1) Loculated pleural effusion: (2) Chronic obstructive pulmonary disease: (3) Acute respiratory failure with hypoxia: (4) Metastatic lung cancer (metastasis from lung to other site): Plan PFT 10/07/2020: Moderate obstructive lung dysfunction, moderate restriction, severe decrease in DLCO FVC 2.90 L 63%, FEV1 1.86 L 54%, FEV1/FVC 64%, TLC 56%, DLCO 70% CT chest 04/08/2024 personally reviewed: Centrilobular emphysema appreciated bilaterally Increase in talar lobular and interstitial marking bilaterally especially in the right upper lobe Small left-sided pleural effusion Calcified mediastinal lymph nodes 2D echo 04/23/2024: EF 60-65%, mild MR, normal RVSP, grade 2 diastolic dysfunction -- Left-sided pleural effusion, exudative Seems to be loculated based on the chest x-ray Procalcitonin 0.16, nasal MRSA negative BNP 1076 S/p thoracentesis 04/23/2024, 750 mL of cloudy serosanguineous fluid removed, e xudative as per lights criteria, neutrophilic Pleural fluid: LDH 2548, protein <3, pH 7.27 Serum: LDH 189, protein 5.2 --COPD with emphysema, current smoker On Breo 50 at home > [id number] smoking history currently smoking a pack a day --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 Cytology is still pending. Will follow it up. Patient creatinine did bump from yesterday. Hold Lasix today Will order a thoracentesis to be done on Saturday by IR. Incentive spirometry will be beneficial Recommend CPAP of 12 cm H2O nightly Case was discussed with RN at bedside as well as hospitalist No further recommendation from pulmonary perspective, will sign off Please call directly with any questions Please note the above document was generated using voice recognition software. It may contain grammatical, syntax or spelling errors.Any formal questions or concerns about the content, text or information contained within the body of this dictation should be directly addressed to the provider for clarification. Admission and Anticipated Discharge Date Admission Date: April 22, 2024 Subjective Patient seen and examined. No acute distress, no adverse events overnight He had the surgery done yesterday on his left knee He was saturating 93-94% on 3 L nasal cannula. Did complain of discomfort at the chest tube. No headache, no blurry vision Has been afebrile Review of Systems 2 Review of Systems: All systems reviewed & are unremarkable except as noted in Subjective Physical Exam 2 Physical Exam: Constitutional: No acute distress HEENT: EOMI, PERRLA, forehead midline scar Respiratory system: Decreased air entry on the left side, no wheeze, no rhonchi, positive crackles left lower lobe CVS: S1-S2 positive, no murmurs or gallops Abdomen: Soft, nontender, nondistended, positive bowel sounds x4 Extremities: +2 pulses bilaterally radialis/ dorsalis pedis, no cyanosis, +2 pitting edema left lower extremity Neuro: Awake alert oriented x3 Psych: Normal mood and affect G/U: No Gould Skin: no rashes, warm and dry Lymphatic: no cervical or axillary lymphadenopathy Results & Data Results & Data Vital Signs (Past 12 Hours) Vital Signs Temp Pulse Pulse Resp BP BP Pulse Ox 04/25/24 07:20 92 H 18 91 04/25/24 03:20 36.9 C 91 H 22 136/70 90 04/24/24 23:47 36.3 C L 88 16 154/62 H 92 04/24/24 22:04 93 H O2 Del Method O2 Flow Rate 04/25/24 07:20 Oxymask 2 04/25/24 03:20 Oxymask 3 04/24/24 23:47 Oxymask 3 04/24/24 22:04 Laboratory Results 04/25/24 06:01 04/25/24 06:01 PG Care Time/CCT Total # of Minutes Spent Total Time Spent with Patient: Total time spent is greater than 50% in coordination of care (as documented) at patient's floor/unit and/or counseling patient: Coding Level of Care Code 82668 SUB INP/OBS CARE 2/35MIN Diagnoses Loculated pleural effusion J90 Chronic obstructive pulmonary disease J44.9 Acute respiratory failure with hypoxia J96.01 Metastatic lung cancer (metastasis from lung to other site) C34.90
--- NOTE | 2024-04-25 08:55 | Orthopedic Progress Note ---
Date of Service April 25, 2024 Assessment & Plan (1) Septic joint of left knee joint: (2) Pseudogout of left knee: (3) Effusion, left knee: (4) Osteoarthritis of left knee: (5) Status post arthroscopic surgery of left knee: Plan 78-year-old gentleman POD# 1 s/p left knee arthroscopic irrigation and debridement. Admits to pain, but with the underlying degenerative changes and pseudogout, this is expected. He is neurologically intact. Plan: 1. DVT prophylaxis w/ TEDs, SCDs, ASA 325 mg daily, as well as Plavix 75 mg daily. 2. PT/OT as tolerated. WBAT on the L LE. ROM as tolerated. 3. Continue current pain regimen. 4. Dressing change not prior to POD#2, which is the earliest the drain will be removed by orthopedics. 5. Disposition - pending 6. F/u timeframe with Dr. Kumari's team - pending. Subjective Patient is POD# 1 s/p left knee arthroscopic irrigation and debridement for [place] knee infection by Dr. Kumari on 04/24/2024. Patient says his pain is quite significant this morning, but he does understand the underlying degenerative change and pseudogout, as well as the extent of work that was done during the surgery. Denies CP, N/V, L LE paresthesia. He understands that we are leaving the drain in until at least tomorrow. Review of Systems All systems reviewed & are unremarkable except as noted in HPI & below. Physical Exam GENERAL: AA&Ox3, NAD. Pleasant, affect is calm. Lying in bed and does appear in some mild pain. RESPIRATORY: Normal respiratory effort with no signs of distress. CHEST/AXILLA: Chest movement symmetrical. No deformities noted. CARDIOVASCULAR: No edema noted. SKIN: [place], warm and dry. MS/EXTREMITY: Knee dressing & FARHANA wrap c/d/i. + ankle dorsi/plantarflexion. NVI distally. Calf soft/NT. PT/DP pulses intact, 2+. Pitting edema is noted to left lower extremity. Results & Data Results & Data Laboratory Results . Laboratory Results - last 24 hr 04/24/24 04/24/24 04/24/24 11:18 16:00 18:44 WBC RBC Hgb Hct MCV MCH MCHC RDW Std Deviation RDW Coeff of Jono Plt Count MPV Absolute Nucleated RBC Nucleated RBC % (auto) Sodium Potassium Chloride Carbon Dioxide Anion Gap BUN Creatinine Est Cr Clr Drug Dosing eGFR BUN/Creatinine Ratio Glucose POC Glucose 126 H 124 H 119 H Calcium 04/24/24 04/25/24 04/25/24 20:40 06:01 07:51 WBC 6.31 RBC 3.03 L Hgb 9.6 L Hct 29.4 L MCV 97.0 MCH 31.7 MCHC 32.7 RDW Std Deviation 60.1 H RDW Coeff of Jono 17.2 H Plt Count 143 MPV 9.9 Absolute Nucleated RBC 0.02 Nucleated RBC % (auto) 0.3 Sodium 137 Potassium 4.4 Chloride 100 Carbon Dioxide 28 Anion Gap 9 BUN 28 H Creatinine 1.48 H Est Cr Clr Drug Dosing 44.5 eGFR 48.43 BUN/Creatinine Ratio 18.9 Glucose 158 H POC Glucose 129 H 173 H Calcium 8.1 L Diagnostic Findings . PG Care Time/CCT Total # of Minutes Spent Total Time Spent with Patient: Total time spent is greater than 50% in coordination of care (as documented) at patient's floor/unit and/or counseling patient: Coding Level of Care Code 05611 Post Operative Follow-Up Diagnoses Septic joint of left knee joint M00.9 Pseudogout of left knee M11.262 Effusion, left knee M25.462 Primary osteoarthritis of left knee M17.12 Osteoarthritis type: primary Status post arthroscopic surgery of left knee Z98.890 (4) Osteoarthritis of left knee Osteoarthritis type: primary Qualified Code(s): M17.12 - Unilateral primary osteoarthritis, left knee
--- NOTE | 2024-04-25 09:18 | XRay Report ---
XR chest 1V portable CLINICAL HISTORY: f/u COMPARISON STUDY: Chest radiograph April 23, 2024. Chest CT April 08, 2024. FINDINGS: There is no pneumothorax. A moderate left pleural effusion has increased in size since prio r exam. Left mid and lower lung airspace opacity persists. Interstitial thickening and mild alveolar opacities within the right lung persist. Cardiomediastinal silhouette is stable. Several left-sided r ib fractures are again noted. IMPRESSION: 1. Increase in size of a moderate left pleural effusion, possibly loculated. No pneumothorax. 2. Persistent left mid and lower lung airspace opacity which may be treatment related. However, pneum onia could appear similar. 3. Interstitial thickening and mild airspace opacities within the right lung which are likely infecti ous. ACT 112: Negative or not required by law. Electronically signed by: Aubrey Carballo M.D. 04/25/2024 9:16 AM
[2024-04-25] MEDS: MoRPHine SULFATE 2 MG/ML CARP IV STA ×2 (10:31→17:44)
--- NOTE | 2024-04-25 11:01 | Hospitalist Progress Note ---
Date of Service April 25, 2024 Assessment & Plan (1) Acute hypoxemic respiratory failure: Plan: Assessment: 1. Acute hypoxemic respiratory failure. Secondary to COPD, pleural effusion and PNA some improvement following Thoracentesis continue supplemental oxygen wean as toletrated 2. Left lung pneumonia with moderate-sized parapneumonic effusion. Chest x ray shows worsening pleural effusion and consolidation Patient was treated for PNA a couple of weeks ago Now s/p thoracentesis with removal of about 750cc of serosanguineous fluid, fluid exudative by Lights criteria Continue IV cefepime. 3. Left knee effusion with possible septic joint. Had athrocentesis and fluid shows evidence of pseudogout, culture also growing klebsiella Orthopedics consulted. he is now s/p arthrocentesis and debridement and washout with synovectomy 04/24 Continue IV cefepime Appreciate Ortho and ID 4. Acute on chronic anemia. Hb stable following Blood transfusion 5. History of paroxysmal atrial fibrillation during his last admission. Was commenced on amiodarone at that time. Not on anticoagulation due to GI bleed 5b HFwpEF BNP >1000 ECHO shows EF 60-65%, with diastolic dysfunction Still fluid overloaded, however, Cr bumped after restarting Lasix will hold lasix today monitor I/O, daily weights 5c JAVED on CKD Worsening renal function following lasix will hold lasix today 6. Diabetes mellitus type 2. Insulin requiring. Insulins will be held off on on this time given the significant hypoglycemia. Will check blood glucoses every 4 hours. On-call provider will be notified if less than 80 or greater than 180. 7. Hypoglycemia. Resolved 8. Lung cancer with renal cell carcinoma. Under active treatment per the patient family. 9. COPD with exacerbation secondary to pneumonia. Continue duoenbs 10. Sleep apnea. Patient does not use CPAP currently at home. Although he does have a history of this. Per Pulm, continue Cpap 11. History of depression. Continue home medication. 12. History of GERD. Will do Protonix twice daily. 13. History of dyslipidemia. Continue medication. 14. Mildly elevated troponins probably from demand ischemia due to hypoxemic respiratory failure. 15. History of carotid artery disease follows with vascular surgery in [place]. 15. Hypomagnesemia. Replaced. Will be rechecked. Plan: continue hospitalization (2) JAY on CPAP: (3) (HFpEF) heart failure with preserved ejection fraction: (4) Acute kidney injury superimposed on CKD: Admission and Anticipated Discharge Date Admission Date: April 22, 2024 Subjective patient seen and examined, still complains of a lot of pain on the knee Review of Systems Review of Systems: All systems reviewed are negative, apart from the ones contained in the history. Physical Exam Physical Exam: The patient is awake, alert and oriented 3, well developed and well nourished, normocephalic and atraumatic, lying in bed and in no acute distress. HEENT--PERRL, EOMI, mucous membranes and oropharynx mildly dry Neck--supple. No JVD. No bruits. Thyroid normal, trachea midline, no adenopathy. Heart--normal S1 and S2. No murmurs, rubs or gallops. Lungs--reduced air entry on auscultation Abdomen--normal bowel sounds and soft. Extremities--no cyanosis or clubbing. No edema. Dermatologic--normal skin turgor, normal color, no abnormal lymph nodes, no rash. Neurologic--cranial nerves II through XII grossly intact. Rheumatologic--reduced range of motion left leg Psychiatric--normal affect. Results & Data Results & Data Vital Signs (Past 12 Hours) Vital Signs Temp Pulse Pulse Resp BP BP Pulse Ox 04/25/24 08:49 97.3 F L 89 20 144/66 H 94 04/25/24 08:00 89 04/25/24 07:20 92 H 18 91 04/25/24 03:20 98.4 F 91 H 22 136/70 90 04/24/24 23:47 97.3 F L 88 16 154/62 H 92 O2 Del Method O2 Flow Rate 04/25/24 08:49 Room Air 04/25/24 08:00 04/25/24 07:20 Oxymask 2 04/25/24 03:20 Oxymask 3 04/24/24 23:47 Oxymask 3 PG Care Time/CCT Total # of Minutes Spent Total Time Spent with Patient: Total time spent is greater than 50% in coordination of care (as documented) at patient's floor/unit and/or counseling patient: Coding Level of Care Code 55495 SUB INP/OBS CARE 2/35MIN Diagnoses Acute hypoxemic respiratory failure J96.01 JAY on CPAP G47.33; Z99.89 (HFpEF) heart failure with preserved ejection fraction I50.30 Acute kidney injury superimposed on CKD N17.9; N18.9 Time Spent (min) 35
[2024-04-25] MEDS: MAGNESIUM SULFATE / D5W 1 GM/100 ML BAG IV SCH (15:58)
[2024-04-25] MEDS: SODIUM CHLORIDE 0.9% 500 ML IV ONE ×2 (19:54→20:33)
[2024-04-25] MEDS ORDERED: NALOXONE HCL 0.4 MG/1 ML VIAL/CARP IV PRN (22:01)
--- NOTE | 2024-04-25 23:25 | XRay Report ---
Exam(s): XR CXR 1 VIEW EXAM: XR Chest, 1 View CLINICAL HISTORY: SOB. TECHNIQUE: Frontal view of the chest. COMPARISON: 04-25-2024. FINDINGS: Heart is mildly enlarged. Interval decrease in lateral and basilar left pleural fluid. No pneumothorax. Multiple left-sided rib fractures are redemonstrated. Focal atelectasis versus infiltrate at the left lung base, unchanged. Diffuse interstitial prominence consistent with pulmonary congestion. Remainder of study is unchanged. IMPRESSION: Slight decrease in left pleural fluid. Otherwise no change. Electronically signed by: Caleb Banks M.D. 04/25/24 23:24 PM
[2024-04-26] MEDS ORDERED: VANCOMYCIN CONSULT ACTIVE PRN (04:50)
[2024-04-26 05:05] LABS: Hematocrit (blood only) 28.7 % (42.0-52.0); Hemoglobin 9.3 g/dl (14.0-18.0); Mean Corpuscular Hemoglobin 32.3 pg (25.0-34.0); Mean Corpuscular Hgb Conc 32.4 g/dL (32.0-36.0); Mean Corpuscular Volume 99.7 fL (80.0-100.0); Mean Platelet Volume 10.2 fL (9.4-12.4); Nucleated RBC # (auto) 0.09 K/uL (0.00-0.12); Nucleated RBC % (auto) 0.9 %; Platelet Count 133 K/uL (130-400); RDW Standard Deviation 61.4 fL (36.4-46.3); Red Blood Count 2.88 M/uL (4.70-6.10); White Blood Count 9.92 K/ul (4.8-10.8)
[2024-04-26] MEDS: VANCOMYCIN HCL 1,750 MG in SODIUM CHLORIDE 0.9% 500 ML IV ONE (05:07)
[2024-04-26 05:24] LABS: Calcium 8.6 mg/dl (8.6-10.3); Potassium 4.1 mmol/L (3.5-5.1)
[2024-04-26 05:25] LABS: iSTAT Arterial Blood Gas HCO3 29 meg/L (19-24); iSTAT Arterial Blood Gas pCO2 49 mmHg (35-46); iSTAT Arterial Blood Gas pH 7.37 (7.35-7.45); iSTAT Arterial Blood Gas pO2 33 mmHg (80-95); iSTAT Carbon Dioxide 30 mmol/L (24-31); iSTAT Hematocrit 26 % (42-52); iSTAT Hemoglobin 8.8 g/dl (14.0-18.0); iSTAT Potassium 3.9 mmol/L (3.3-5.0); iSTAT Sodium 134 mmol/L (135-144)
[2024-04-26 05:30] LABS: BUN Creatinine Ratio 15.9 (10-20); Creatinine Clr Calc Pharmacy 28.3 ml/min
--- NOTE | 2024-04-26 05:32 | Communication Note ---
"Date of Service: April 26, 2024 Pt with low saturations throughout the night. BP soft - given 500mL NSS bolus. CPAP initiated with good response on 4L early in the night. Around 5am pt began to desat sustained in the 60s-70s on 15L CPAP. Code purple activated. Put on bipap temporarily. Ultimately on CPAP at 40% FiO2. ABG 7.37|49|33. Given 60mg Solumedrol. Will start on 40mg q8h. Scheduled duonebs q6h."
--- NOTE | 2024-04-26 05:51 | XRay Report ---
EXAM: XR chest 1V portable CLINICAL HISTORY: Increased oxygen demand. TECHNIQUE: An X-ray image of the chest is obtained in AP projection. COMPARISON: Follow up to 04/23/2024 CR. FINDINGS: Lungs and pleural spaces: The loculated left pleural effusion is nearly unchanged. Stable coarse consolidation in the left mid / lower lung Midly improved interstitial and patchy airspace infiltrates throughout the right lung. No pneumothorax. Heart: Large, Stable large cardiac shadow. Mediastinum: Normal contour. Bones/joints: No fracture, erosion, or dislocation. Soft tissues: No abnormality noted. No radiopaque foreign body was noted. Lymph nodes: No sizable lymphadenopathy Upper abdomen: No abnormality noted. IMPRESSION: 1. The loculated left pleural effusion is nearly unchanged. 2. Stable coarse consolidation in the left mid / lower lung 3. Midly improved interstitial and patchy airspace infiltrates throughout the right lung. Electronically signed by Keiko Feng 04-26-2024 05:50 AM
[2024-04-26] MEDS: ALBUT/IPRATROP 3MG/0.5MG NEB 3 ML VIAL NEB STA (06:03)
[2024-04-26] MEDS: methylPREDNISolone 125 MG/2 ML VIAL IV STA (06:12)
[2024-04-26] MEDS: ALBUT/IPRATROP 3MG/0.5MG NEB 3 ML VIAL NEB SCH (06:13)
--- NOTE | 2024-04-26 08:48 | Pulmonology Progress Note ---
Date of Service April 26, 2024 Assessment & Plan (1) Loculated pleural effusion: (2) Chronic obstructive pulmonary disease: (3) Acute respiratory failure with hypoxia: (4) Metastatic lung cancer (metastasis from lung to other site): Plan PFT 10/07/2020: Moderate obstructive lung dysfunction, moderate restriction, severe decrease in DLCO FVC 2.90 L 63%, FEV1 1.86 L 54%, FEV1/FVC 64%, TLC 56%, DLCO 70% CT chest 04/08/2024 personally reviewed: Centrilobular emphysema appreciated bilaterally Increase in talar lobular and interstitial marking bilaterally especially in the right upper lobe Small left-sided pleural effusion Calcified mediastinal lymph nodes 2D echo 04/23/2024: EF 60-65%, mild MR, normal RVSP, grade 2 diastolic dysfunction -- Left-sided pleural effusion, exudative Seems to be loculated based on the chest x-ray Procalcitonin 0.16, nasal MRSA negative BNP 1076 S/p thoracentesis 04/23/2024, 750 mL of cloudy serosanguineous fluid removed, e xudative as per lights criteria, neutrophilic Pleural fluid: LDH 2548, protein <3, pH 7.27 Serum: LDH 189, protein 5.2 --COPD with emphysema, current smoker On Breo 50 at home > 19-ctsd-vizp smoking history currently smoking a pack a day --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 Cytology is still pending. Will follow it up. Bedside ultrasound does show small layering of pleural effusion on the left. For thoracentesis by IR of the left side tomorrow Incentive spirometry will be beneficial Continue with CPAP of 12 cm H2O nightly Case was discussed with primary team Please note the above document was generated using voice recognition software. It may contain grammatical, syntax or spelling errors.Any formal questions or concerns about the content, text or information contained within the body of this dictation should be directly addressed to the provider for clarification. Admission and Anticipated Discharge Date Admission Date: April 22, 2024 Subjective Patient seen and examined at bedside. No acute distress Overnight patient was found to be hypoxic. He was put on CPAP following which she found improvement in the way he felt when it comes to his breathing He was on CPAP of 12 at the time of examination, saturation was 100%. He was not in any distress He denied any chest pain No headache, no nausea, no vomiting Review of Systems 2 Review of Systems: All systems reviewed & are unremarkable except as noted in Subjective Physical Exam 2 Physical Exam: Constitutional: No acute distress HEENT: EOMI, PERRLA, forehead midline scar Respiratory system: Decreased air entry on the left side, no wheeze, no rhonchi, positive crackles left lower lobe CVS: S1-S2 positive, no murmurs or gallops Abdomen: Soft, nontender, nondistended, positive bowel sounds x4 Extremities: +2 pulses bilaterally radialis/ dorsalis pedis, no cyanosis, +2 pitting edema left lower extremity Neuro: Awake alert oriented x3 Psych: Normal mood and affect G/U: No [place] Skin: no rashes, warm and dry Lymphatic: no cervical or axillary lymphadenopathy Results & Data Results & Data Vital Signs (Past 12 Hours) Vital Signs Temp Pulse Pulse Resp BP BP Pulse Ox 04/26/24 07:32 36.5 C 83 20 92/51 L 97 04/26/24 06:03 90 19 92 04/26/24 05:28 83 22 91 04/26/24 02:56 36.3 C L 92 H 20 95/50 L 92 04/26/24 02:31 87 25 H 91 04/25/24 23:18 36.7 C 83 18 118/56 L 85 L 04/25/24 21:47 81 O2 Del Method O2 Flow Rate FiO2 04/26/24 07:32 Oxymask 8 04/26/24 06:03 CPAP 40 04/26/24 05:28 40 04/26/24 02:56 CPAP 04/26/24 02:31 4 04/25/24 23:18 BiPAP 04/25/24 21:47 Laboratory Results 04/26/24 04:47 04/26/24 04:47 PG Care Time/CCT Total # of Minutes Spent Total Time Spent with Patient: Total time spent is greater than 50% in coordination of care (as documented) at patient's floor/unit and/or counseling patient: Coding Level of Care Code 33100 SUB INP/OBS CARE 2/35MIN Diagnoses Loculated pleural effusion J90 Chronic obstructive pulmonary disease J44.9 Acute respiratory failure with hypoxia J96.01 Metastatic lung cancer (metastasis from lung to other site) C34.90
--- NOTE | 2024-04-26 09:50 | Orthopedic Progress Note ---
Date of Service April 26, 2024 Assessment & Plan (1) Septic joint of left knee joint: (2) Pseudogout of left knee: (3) Effusion, left knee: (4) Osteoarthritis of left knee: (5) Status post arthroscopic surgery of left knee: Plan 78-year-old gentleman POD#2 s/p left knee arthroscopic irrigation and debridement. Pain improved. Patient able to ambulate on the knee. Drain was removed and new dressing placed. Plan: 1. DVT prophylaxis w/ TEDs, SCDs, ASA 325 mg daily, as well as Plavix 75 mg daily. 2. PT/OT as tolerated. WBAT on the L LE. ROM as tolerated. 3. Continue current pain regimen. 4. Dressing changes/reinforcement as needed. 5. Disposition - pending 6. F/u timeframe with Dr. Kumari's team - pending. Subjective Patient is POD#2 s/p left knee arthroscopic irrigation and debridement for [place] knee infection by Dr. Kumari on 04/24/2024. Pain is improved this morning. He says that he was able to walk on the knee some. Denies CP, N/V, L LE paresthesia. Review of Systems All systems reviewed & are unremarkable except as noted in HPI & below. Physical Exam GENERAL: AA&Ox3, NAD. Pleasant, affect is calm. Lying in bed, appears comfortable. RESPIRATORY: Normal respiratory effort with no signs of distress. CHEST/AXILLA: Chest movement symmetrical. No deformities noted. CARDIOVASCULAR: No edema noted. SKIN: [place], warm and dry. MS/EXTREMITY: Portal sites without dressing, but Steri-Strips intact. Drain site with new dressing and drain intact. + ankle dorsi/plantarflexion. NVI distally. Calf soft/NT. PT/DP pulses intact, 2+. Pitting edema is noted to left lower extremity; improved. Results & Data Results & Data Laboratory Results . Laboratory Results - last 24 hr 04/25/24 04/25/24 04/25/24 06:01 14:42 16:32 WBC RBC Hgb POC Hgb Hct POC Hct MCV MCH MCHC RDW Std Deviation RDW Coeff of Jono Plt Count MPV Absolute Nucleated RBC Nucleated RBC % (auto) POC pH POC pCO2 POC pO2 POC HCO3 POC Total CO2 POC Base Excess POC ABG O2 Sat POC Sodium Sodium POC Potassium Potassium Chloride Carbon Dioxide Anion Gap BUN Creatinine Est Cr Clr Drug Dosing eGFR BUN/Creatinine Ratio Glucose POC Glucose 217 H Calcium Magnesium Cancelled 1.5 L Nasal Screen MRSA (PCR) 04/25/24 04/25/24 04/25/24 19:21 20:43 20:45 WBC RBC Hgb POC Hgb Hct POC Hct MCV MCH MCHC RDW Std Deviation RDW Coeff of Jono Plt Count MPV Absolute Nucleated RBC Nucleated RBC % (auto) POC pH POC pCO2 POC pO2 POC HCO3 POC Total CO2 POC Base Excess POC ABG O2 Sat POC Sodium Sodium POC Potassium Potassium Chloride Carbon Dioxide Anion Gap BUN Creatinine Est Cr Clr Drug Dosing eGFR BUN/Creatinine Ratio Glucose POC Glucose 75 55 L* 56 L* Calcium Magnesium Nasal Screen MRSA (PCR) 04/26/24 04/26/24 04/26/24 04:47 05:00 05:07 WBC 9.92 RBC 2.88 L Hgb 9.3 L POC Hgb 8.8 L Hct 28.7 L POC Hct 26 L MCV 99.7 MCH 32.3 MCHC 32.4 RDW Std Deviation 61.4 H RDW Coeff of Jono 17.0 H Plt Count 133 MPV 10.2 Absolute Nucleated RBC 0.09 Nucleated RBC % (auto) 0.9 POC pH 7.37 POC pCO2 49 H POC pO2 33 L POC HCO3 29 H POC Total CO2 30 POC Base Excess 3.0 H POC ABG O2 Sat 61.0 L POC Sodium 134 L Sodium 135 L POC Potassium 3.9 Potassium 4.1 Chloride 98 Carbon Dioxide 25 Anion Gap 12 H BUN 37 H Creatinine 2.33 H D Est Cr Clr Drug Dosing 28.3 eGFR 28.09 BUN/Creatinine Ratio 15.9 Glucose 179 H POC Glucose Calcium 8.6 Magnesium Nasal Screen MRSA (PCR) Negative 04/26/24 04/26/24 04/26/24 07:29 09:39 11:30 WBC RBC Hgb POC Hgb 7.8 L Hct POC Hct 23 L MCV MCH MCHC RDW Std Deviation RDW Coeff of Jono Plt Count MPV Absolute Nucleated RBC Nucleated RBC % (auto) POC pH 7.43 POC pCO2 39 POC pO2 66 L POC HCO3 26 H POC Total CO2 27 POC Base Excess 2.0 H POC ABG O2 Sat 93.0 POC Sodium 133 L Sodium POC Potassium 3.7 Potassium Chloride Carbon Dioxide Anion Gap BUN Creatinine Est Cr Clr Drug Dosing eGFR BUN/Creatinine Ratio Glucose POC Glucose 193 H 107 H Calcium Magnesium Nasal Screen MRSA (PCR) Diagnostic Findings . PG Care Time/CCT Total # of Minutes Spent Total Time Spent with Patient: Total time spent is greater than 50% in coordination of care (as documented) at patient's floor/unit and/or counseling patient: Coding Level of Care Code 05440 Post Operative Follow-Up Diagnoses Septic joint of left knee joint M00.9 Pseudogout of left knee M11.262 Effusion, left knee M25.462 Primary osteoarthritis of left knee M17.12 Osteoarthritis type: primary Status post arthroscopic surgery of left knee Z98.890 (4) Osteoarthritis of left knee Osteoarthritis type: primary Qualified Code(s): M17.12 - Unilateral primary osteoarthritis, left knee
[2024-04-26 09:52] LABS: iSTAT Arterial Blood Gas HCO3 26 meg/L (19-24); iSTAT Arterial Blood Gas pCO2 39 mmHg (35-46); iSTAT Arterial Blood Gas pH 7.43 (7.35-7.45); iSTAT Arterial Blood Gas pO2 66 mmHg (80-95); iSTAT Carbon Dioxide 27 mmol/L (24-31); iSTAT Hematocrit 23 % (42-52); iSTAT Hemoglobin 7.8 g/dl (14.0-18.0); iSTAT Potassium 3.7 mmol/L (3.3-5.0); iSTAT Sodium 133 mmol/L (135-144)
--- NOTE | 2024-04-26 10:27 | Hospitalist Progress Note ---
Date of Service April 26, 2024 Assessment & Plan (1) Acute hypoxemic respiratory failure: Plan: Assessment: 1. Acute hypoxemic respiratory failure. Secondary to COPD, pleural effusion and PNA some improvement following Thoracentesis continue supplemental oxygen wean as toletrated Appears more comfortable today 2. Left lung pneumonia with moderate-sized parapneumonic effusion. Now s/p thoracentesis with removal of about 750cc of serosanguineous fluid, fluid exudative by Lights criteria However, repeat Chest x ray shows reaccumulation of pleural effusion Plan is for repeat thoracentesis on Saturday Continue IV cefepime. 3. Left knee effusion with possible septic joint. Had arthrocentesis and fluid shows evidence of pseudogout, culture also growing klebsiella Orthopedics consulted. he is now s/p arthrocentesis and debridement and washout with synovectomy 04/24 Continue IV cefepime weight bearing as tolerated Appreciate Ortho and ID 4. Acute on chronic anemia. Hb stable following Blood transfusion 5. History of paroxysmal atrial fibrillation during his last admission. Was commenced on amiodarone at that time. Not on anticoagulation due to GI bleed 5b HFwpEF BNP >1000 ECHO shows EF 60-65%, with diastolic dysfunction Still fluid overloaded, however, Cr bumped after restarting Lasix will hold lasix today monitor I/O, daily weights 5c JAVED on CKD Worsening renal function following lasix will hold lasix today 6. Diabetes mellitus type 2. 7. Hypoglycemia. Resolved 8. Lung cancer with renal cell carcinoma. Under active treatment per the patient family. 9. COPD with exacerbation secondary to pneumonia. Continue duoenbs 10. Sleep apnea. Patient does not use CPAP currently at home. Although he does have a history of this. Per Pulm, continue Cpap 11. History of depression. Continue home medication. 12. History of GERD. Will do Protonix twice daily. 13. History of dyslipidemia. Continue medication. 14. Mildly elevated troponins probably from demand ischemia due to hypoxemic respiratory failure. 15. History of carotid artery disease follows with vascular surgery in [place]. 15. Hypomagnesemia. Replaced. Will be rechecked. Plan: continue hospitalization, PT/OT eval pending. may benefit from SNF (2) JAY on CPAP: (3) (HFpEF) heart failure with preserved ejection fraction: (4) Acute kidney injury superimposed on CKD: Admission and Anticipated Discharge Date Admission Date: April 22, 2024 Subjective patient seen and examined this morning, appears comfortable, saturating well on 3 l oxygen Review of Systems Review of Systems: All systems reviewed are negative, apart from the ones contained in the history. Physical Exam Physical Exam: The patient is awake, alert and oriented 3, well developed and well nourished, normocephalic and atraumatic, lying in bed and in no acute distress. HEENT--PERRL, EOMI, mucous membranes and oropharynx mildly dry Neck--supple. No JVD. No bruits. Thyroid normal, trachea midline, no adenopathy. Heart--normal S1 and S2. No murmurs, rubs or gallops. Lungs--reduced air entry on auscultation Abdomen--normal bowel sounds and soft. Extremities--no cyanosis or clubbing. No edema. Dermatologic--normal skin turgor, normal color, no abnormal lymph nodes, no rash. Neurologic--cranial nerves II through XII grossly intact. Rheumatologic--reduced range of motion left leg Psychiatric--normal affect. Results & Data Results & Data Vital Signs (Past 12 Hours) Vital Signs Temp Pulse Pulse Resp BP BP Pulse Ox 04/26/24 08:11 04/26/24 07:32 97.7 F 83 20 92/51 L 97 04/26/24 06:03 90 19 92 04/26/24 05:28 83 22 91 04/26/24 02:56 97.3 F L 92 H 20 95/50 L 92 04/26/24 02:31 87 25 H 91 04/25/24 23:18 98.1 F 83 18 118/56 L 85 L O2 Del Method O2 Flow Rate FiO2 04/26/24 08:11 High Flow Nasal Cannula 8 04/26/24 07:32 Oxymask 8 04/26/24 06:03 CPAP 40 04/26/24 05:28 40 04/26/24 02:56 CPAP 04/26/24 02:31 4 04/25/24 23:18 BiPAP PG Care Time/CCT Total # of Minutes Spent Total Time Spent with Patient: Total time spent is greater than 50% in coordination of care (as documented) at patient's floor/unit and/or counseling patient: Coding Level of Care Code 23110 SUB INP/OBS CARE 2/35MIN Diagnoses Acute hypoxemic respiratory failure J96.01 JAY on CPAP G47.33; Z99.89 (HFpEF) heart failure with preserved ejection fraction I50.30 Acute kidney injury superimposed on CKD N17.9; N18.9 Time Spent (min) 35
--- NOTE | 2024-04-26 12:17 | Procedure Note ---
Procedure Note Date of Service April 26, 2024 Bedside Ultrasound: Lung: Right:-Minimal right-sided pleural effusion Left:-Small layering of pleural effusion with dependent atelectasis Please note the above document was generated using voice recognition software. It may contain grammatical, syntax or spelling errors.Any formal questions or concerns about the content, text or information contained within the body of this dictation should be directly addressed to the provider for clarification. [facility] [place] Procedure Codes (Charges) Pulmonary/Thoracic Procedure 1: Pulmonary and Thoracic: 66075 US, Chest, real time with imaging documentation Coding CPT Codes Pulmonary/Thoracic - Pulmonary and Thoracic: 85139 US, Chest, real time with imaging documentation ([id number]) Additional Codes Date of Service (PG.SURGERY)
[2024-04-26] MEDS: CEFEPIME 1000MG 1,000 MG/10 ML SYR IV SCH (15:20)
[2024-04-27 07:39] LABS: Hematocrit (blood only) 26.2 % (42.0-52.0); Hemoglobin 8.3 g/dl (14.0-18.0); Mean Corpuscular Hemoglobin 31.9 pg (25.0-34.0); Mean Corpuscular Hgb Conc 31.7 g/dL (32.0-36.0); Mean Corpuscular Volume 100.8 fL (80.0-100.0); Mean Platelet Volume 10.5 fL (9.4-12.4); Nucleated RBC # (auto) 0.04 K/uL (0.00-0.12); Nucleated RBC % (auto) 0.4 %; Platelet Count 148 K/uL (130-400); RDW Coefficient of Variation 16.9 % (11.5-14.5); White Blood Count 8.97 K/ul (4.8-10.8)
[2024-04-27 07:43] LABS: Partial Thromboplastin Ratio 1.1; Partial Thromboplastin Time 29 Seconds (21-31); Prothrombin Time 11.2 Seconds (9.0-12.0)
[2024-04-27 07:56] LABS: BUN Creatinine Ratio 17.2 (10-20); Calcium 8.7 mg/dl (8.6-10.3); Creatinine Clr Calc Pharmacy 24.7 ml/min; Potassium 3.9 mmol/L (3.5-5.1)
--- NOTE | 2024-04-27 07:57 | Orthopedic Progress Note ---
Date of Service April 27, 2024 Assessment & Plan (1) Status post arthroscopic surgery of left knee: Dressing changed today. Reinforce as needed Continue PT/OT wbat and range of motion as tolerated. aspirin for dvt prophylaxis, also on plavix. Final cultures still pending, show no growth. Continue abx per ID r ecommendations. Currently on IV cefepime. Subjective . 78 year old patient POD 2 from left knee I and D with Dr Kumari. Sleeping this morning, and has been lethargic per nursing staff. CPAP on. He does open his eyes and answer questions. Says his knee pain is about the same as preop. Review of Systems All systems reviewed & are unremarkable except as noted in HPI & below. Physical Exam . Sleeping but able to awaken him. CPAP in place. Left knee: dressing intact. I did change the dressing. Minimal knee effusion. No erythema. No active drainage. Has pain with passive knee motion. Results & Data Results & Data Laboratory Results . Diagnostic Findings . PG Care Time/CCT Total # of Minutes Spent Total Time Spent with Patient: Total time spent is greater than 50% in coordination of care (as documented) at patient's floor/unit and/or counseling patient: Coding Level of Care Code 59397 Post Operative Follow-Up Diagnoses Status post arthroscopic surgery of left knee Z98.890
[2024-04-27] MEDS ORDERED: GLUCOSE 40% GEL 15 GM TUBE PO PRN (08:50)
[2024-04-27] MEDS ORDERED: GLUCOSE 10 TAB/TUBE PO PRN (08:50)
[2024-04-27] MEDS ORDERED: GLUCAGON FOR INJ 1 MG VIAL SQ PRN (08:50)
[2024-04-27] MEDS ORDERED: INSULIN HUMAN NPH SC SCH ×2 (09:00)
--- NOTE | 2024-04-27 09:48 | Infectious Disease Progress Nt ---
Date of Service April 27, 2024 Assessment & Plan (1) Acute respiratory failure with hypoxia: (2) Loculated pleural effusion: (3) Septic joint of left knee joint: (4) Pseudogout of left knee: Plan 78-year-old man with past medical history of metastatic adenocarcinoma of the kaiden ng (sp cycle 1 pembrolizumab on 01/22/24 /cycle 3 held and s/p cycle 1 carboplatin/paclitaxel 01/29/24 and cycle 3 03/26/24), COPD, DM 2, hypertension, admitted on 04/22 with L knee septic arthritis. Also found to have L parapneumonic vs loculated pleural effusion. He was recently admitted 03/31/24 - 04/11/24 for acute hypoxic respiratory failure thought to be 2/2 possible multifocal pneumonia, pancytopenia and diffuse bone and joint pain. He was treated with Zosyn inpatient and discharged on Augmentin. He also was noted to have a left knee effusion but declined aspiration and was treated with pain medication. He was discharged to inpatient rehab. He had progressive left knee pain/swelling and was seen by orthopedic surgery outpatient. He underwent an arthrocentesis on 04/21/24 which showed 17 ,584 WBC with 92% neutrophils and grew rare Klebsiella pneumoniae and rare possible calcium pyrophosphate dihydrate crystals c/f pseudogout. On admission, he is afebrile, hypoxic and required 6 L nasal cannula. Labs: WBC 4.21, hemoglobin 6.8, creatinine 1.49, procalcitonin 0.16. UA negative for pyuria. MRSA nasal screen negative. Repeat arthrocentesis shows 37, 125 WBC with 94% neutrophils, growing rare Klebsiella pneumoniae. Chest x-ray showed increased left pleural effusion and consolidation. Underwent thoracentesis 04/23, which showed exudative fluid with culture NGTD, cytology negative for malignant cells. Ortho initially recommended antibiotic therapy and serial aspiration, however they feel that he will benefit from an arthroscopic irrigation and debridement once medically optimized. Underwent left knee arthroscopic debridement and synovectomy on 04/24/24. Microbiology: 04/21 Left knee synovial fluid culture: rare Klebsiella pneumoniae (pansensitive) 04/22 Blood cultures NGTD 04/22 Left knee synovial fluid culture: rare Klebsiella pneumoniae (pansensitive) 04/23 MRSA nares: neg 04/23 L pleural fluid cx: NGTD. GS neg 04/24 L knee synovium cx: NGTD Antibiotics: Cefepime 04/22ongoing Vancomycin , 04/25 Problems: #Left pauma knee septic arthritis with Klebsiella pneumoniae #Left Parapneumonic versus loculated pleural effusion #Acute hypoxic respiratory failure #Metastatic lung adenocarcinoma on immunotherapy and chemotherapy -Status post pembrolizumab times 1, carboplatin/paclitaxel times cycle 1 and 3 Discussion: 04/23 pleural fluid culture NGTD, cytology negative for malignant cells. Agree with pending arthroscopic debridement for pauma left knee joint septic arthritis. He underwent thoracentesis today, 04/24. Fluid is exudative per lights criteria. Pleural culture and cytology is pending. Although Klebsiella pneumoniae from synovial fluid is pansensitive, would continue broad gram-negative coverage pending pleural fluid cultures. MRSA nares is negative so this makes a MRSA pulmonary infection less likely. Vancomycin discontinued 04/23/24 Recommendations: - Pleural fluid culture NGTD. Stopped cefepime. Started ceftriaxone 2 g IV q24h. Anticipate likely 4 week course of antibiotics; could consider switching to PO fluoroquinolone to complete the course - Per pulm note, pt undergoing thoracentesis with IR today. Please send for gram stain/culture, cell counts, protein, LDH Will continue to follow Admission and Anticipated Discharge Date Admission Date: April 22, 2024 Subjective This patient recommendation is based on a telemedicine consult request which was completed asynchronously through chart review and information provided by the primary physician. The patient was not seen or examined today. The evaluation is consultative in nature and all patient care and treatment decisions can either be accepted or rejected by the patient's primary hospital-based treating rickyy sician using their own independent medical judgment for their patient. Time Spent Reviewing Chart: 31+ minutes Afebrile without leukocytosis Results & Data Vital Signs (Past 12 Hours) Vital Signs Temp Pulse Pulse Resp BP BP Pulse Ox 04/27/24 08:00 36.4 C L 63 18 114/60 111/62 97 04/27/24 06:33 78 23 100 04/27/24 06:33 78 23 100 04/27/24 03:07 79 21 100 04/27/24 03:03 36.2 C L 80 16 105/51 L 97 04/27/24 00:37 76 20 98 04/26/24 22:25 36.3 C L 74 22 129/70 97 04/26/24 21:46 73 O2 Del Method FiO2 04/27/24 08:00 BiPAP 04/27/24 06:33 CPAP 04/27/24 06:33 35 04/27/24 03:07 35 04/27/24 03:03 BiPAP 04/27/24 00:37 BiPAP 35 04/26/24 22:25 BiPAP 04/26/24 21:46 Laboratory Results Short CBC 04/27/24 Range/Units 06:22 WBC 8.97 (4.8-10.8) K/ul Hgb 8.3 L (14.0-18.0) g/dl Hct 26.2 L (42.0-52.0) % Plt Count 148 (130-400) K/uL BMP 04/27/24 06:22 Sodium 140 Potassium 3.9 Chloride 103 Carbon Dioxide 31 BUN 46 H Creatinine 2.67 H D Glucose 233 H Calcium 8.7 Diagnostic Findings Chest X-Ray 04/25/24 08:51 XR chest 1V portable CLINICAL HISTORY: f/u COMPARISON STUDY: Chest radiograph April 23, 2024. Chest CT April 08, 2024. FINDINGS: There is no pneumothorax. A moderate left pleural effusion has increased in size since prior exam. Left mid and lower lung airspace opacity persists. Interstitial thickening and mild alveolar opacities within the right lung persist. Cardiomediastinal silhouette is stable. Several left-sided rib fractures are again noted. IMPRESSION: 1. Increase in size of a moderate left pleural effusion, possibly loculated. No pneumothorax. 2. Persistent left mid and lower lung airspace opacity which may be treatment related. However, pneumonia could appear similar. 3. Interstitial thickening and mild airspace opacities within the right lung which are likely infectious. ACT 112: Negative or not required by law. Electronically signed by: Aubrey Carballo M.D. 04/25/2024 9:16 AM Chest X-Ray 04/25/24 20:00 Exam(s): XR CXR 1 VIEW EXAM: XR Chest, 1 View CLINICAL HISTORY: SOB. TECHNIQUE: Frontal view of the chest. COMPARISON: 04-25-2024. FINDINGS: Heart is mildly enlarged. Interval decrease in lateral and basilar left pleural fluid. No pneumothorax. Multiple left-sided rib fractures are redemonstrated. Focal atelectasis versus infiltrate at the left lung base, unchanged. Diffuse interstitial prominence consistent with pulmonary congestion. Remainder of study is unchanged. IMPRESSION: Slight decrease in left pleural fluid. Otherwise no change. Electronically signed by: Caleb Banks M.D. 04/25/24 23:24 PM Chest X-Ray 04/26/24 04:50 EXAM: XR chest 1V portable CLINICAL HISTORY: Increased oxygen demand. TECHNIQUE: An X-ray image of the chest is obtained in AP projection. COMPARISON: Follow up to 04/23/2024 CR. FINDINGS: Lungs and pleural spaces: The loculated left pleural effusion is nearly unchanged. Stable coarse consolidation in the left mid / lower lung Midly improved interstitial and patchy airspace infiltrates throughout the right lung. No pneumothorax. Heart: Large, Stable large cardiac shadow. Mediastinum: Normal contour. Bones/joints: No fracture, erosion, or dislocation. Soft tissues: No abnormality noted. No radiopaque foreign body was noted. Lymph nodes: No sizable lymphadenopathy Upper abdomen: No abnormality noted. IMPRESSION: 1. The loculated left pleural effusion is nearly unchanged. 2. Stable coarse consolidation in the left mid / lower lung 3. Midly improved interstitial and patchy airspace infiltrates throughout the right lung. Electronically signed by Keiko Feng 04-26-2024 05:50 AM Medications Administered Current Inpatient Medications Acetaminophen (Acetaminophen 325 Mg Tab) 650 mg PO Q4H PRN PRN Reason: Pain or Fever Stop: 05/22/24 16:49 Albuterol (Albuterol 0.083% Nebu Soln 3 Ml Vial) 2.5 mg NEB Q6H PRN; Protocol PRN Reason: Shortness Of Breath Or Wheezing Stop: 05/22/24 16:55 Albuterol (Albut/Ipratrop 3mg/0.5mg Neb 3 Ml Vial) 3 ml NEB QIDR PRN; Protocol PRN Reason: Wheezing Stop: 05/22/24 18:59 Albuterol (Albuterol Hfa 8 Gm Inhaler) 2 puffs INH Q6H PRN PRN Reason: shortness of breath or wheezing Stop: 05/24/24 19:34 Albuterol (Albut/Ipratrop 3mg/0.5mg Neb 3 Ml Vial) 3 ml NEB Q6R MONI; Protocol Stop: 05/26/24 06:59 Last Admin: 04/27/24 06:33 Dose: Not Given Aspirin (Aspirin 325 Mg Ectab) 325 mg PO DAILY MONI Stop: 05/25/24 08:59 Last Admin: 04/26/24 08:06 Dose: 325 mg Benzonatate (Benzonatate 100 Mg Capsule) 200 mg PO Q8H PRN PRN Reason: cough Stop: 05/24/24 19:34 Budesonide (Budesonide 0.25 Mg/2 Ml Vial (Pulmicort)) 0.25 mg NEB BIDR [facility] Stop: 05/24/24 18:59 Last Admin: 04/27/24 06:32 Dose: 0.25 mg Citalopram Hydrobromide (Citalopram 20 Mg Tab) 60 mg PO QAM MONI Stop: 05/23/24 08:59 Last Admin: 04/26/24 08:05 Dose: 60 mg Clopidogrel Bisulfate (Clopidogrel Bisulfate 75 Mg Tab) 75 mg PO DAILY MONI Stop: 05/25/24 08:59 Last Admin: 04/26/24 08:06 Dose: 75 mg Dextrose (Dextrose 50% 50 Ml Syringe) 25 - 50 ml IV UD PRN; Protocol PRN Reason: Hypoglycemia Protocol Stop: 05/27/24 08:49 Formoterol Fumarate (Formoterol 20 Mcg/2 Ml Vial) 20 mcg NEB BIDR [facility] Stop: 05/24/24 18:59 Last Admin: 04/27/24 06:32 Dose: 20 mcg Gabapentin (Gabapentin 600 Mg Tab) 600 mg PO TID MONI Stop: 05/22/24 20:59 Last Admin: 04/26/24 19:51 Dose: 600 mg Glucagon (Glucagon For Inj 1 Mg Vial) 1 mg SQ UD PRN; Protocol PRN Reason: Hypoglycemia Protocol Stop: 05/27/24 08:49 Glucose (Glucose 40% Gel 15 Gm Tube) 15 - 30 gm PO UD PRN; Protocol PRN Reason: Hypoglycemia Protocol Stop: 05/27/24 08:49 Glucose (Glucose 10 Tab/Tube) 4 - 8 tab PO UD PRN; Protocol PRN Reason: Hypoglycemia Protocol Stop: 05/27/24 08:49 Cefepime HCl (Maxipime 2000mg) 1,000 mg in 10 mls @ 5 mls/min IV Q12H MONI Stop: 04/30/24 03:59 Last Admin: 04/27/24 03:40 Dose: 5 mls/min Insulin Aspart (Insulin Aspart Per Unit Charge) 0 units SC ACHS [facility] Stop: 05/27/24 11:29 Insulin Human NPH (Insulin Human Nph) 20 units SC BIDM [facility] Stop: 05/27/24 16:59 Linaclotide (Linaclotide 145 Mcg Capsule) 290 mcg PO DAILY [facility] Stop: 05/23/24 08:59 Last Admin: 04/26/24 08:05 Dose: 290 mcg Magnesium Oxide (Magnesium Oxide 400 Mg Tab) 400 mg PO DAILY [facility] Stop: 05/23/24 08:59 Last Admin: 04/26/24 08:05 Dose: 400 mg Miscellaneous (Order Awaiting Action Darrell Cordero 50_25) 1 each N/A QS [facility] Stop: 05/23/24 00:00 Last Admin: 04/27/24 08:03 Dose: Not Given Miscellaneous (Carbohydrates For Hypoglycemia ) 15 - 30 gm PO UD PRN PRN Reason: Hypoglycemia Protocol Stop: 05/27/24 08:49 Naloxone HCl (Naloxone Hcl 0.4 Mg/1 Ml Vial/Carp) 0.1 mg IV Q5M PRN PRN Reason: Oversedation/Resp Depression Stop: 05/25/24 22:00 Nitroglycerin (Nitroglycerin Sl 0.4 Mg/Tab Tab) 0.4 mg SL Q5M PRN PRN Reason: Chest Pain Stop: 05/24/24 19:34 Ondansetron HCl (Ondansetron Inj 2 Mg/Ml 2 Ml Vial) 4 mg IV Q6H PRN PRN Reason: Nausea Stop: 05/22/24 16:49 Ondansetron HCl (Ondansetron 4 Mg Od Tab) 8 mg PO Q8 PRN PRN Reason: Nausea And Vomiting Stop: 05/24/24 19:45 Oxycodone HCl (Oxycodone Hcl Ir 5 Mg Tab (Immediate Release)) 5 mg PO Q6 PRN PRN Reason: Pain Stop: 05/06/24 18:19 Last Admin: 04/25/24 13:40 Dose: 5 mg Pantoprazole Sodium (Pantoprazole 40 Mg Tab) 40 mg PO BID [facility] Stop: 05/24/24 20:59 Last Admin: 04/26/24 19:51 Dose: 40 mg Rosuvastatin Calcium (Rosuvastatin Calcium 20 Mg Tab) 40 mg PO DAILY [facility] Stop: 05/23/24 08:59 Last Admin: 04/26/24 08:05 Dose: 40 mg
[2024-04-27] MEDS: cefTRIAXone SODIUM 2,000 MG/50 ML BAG IV SCH (10:35)
[2024-04-27] MEDS ORDERED: ALBUT/IPRATROP 3MG/0.5MG NEB 3 ML VIAL NEB PRN (11:01)
--- NOTE | 2024-04-27 12:14 | Hospitalist Progress Note ---
Date of Service April 27, 2024 Assessment & Plan (1) Acute hypoxemic respiratory failure: Plan: Multifactorial due to COPD and underlying lung malignancy with malignant pleural effusion. Supplemental oxygen per nasal cannula to maintain saturation greater than 90%. Wean off as tolerated (2) Septic joint of left knee joint: Plan: Appreciate orthopedic consultation and recommendations. He underwent arthroscopy and washout several days ago. Postoperative day #3. Klebsiella isolated. He is now on intravenous cefepime, day 2 (3) Malignant pleural effusion: Plan: He underwent left thoracentesis earlier this admission with aspiration of 750 cc of fluid. Cytology was negative but this undoubtedly is a malignant pleural effusion (4) Acute kidney injury superimposed on CKD: Plan: Baseline chronic kidney disease stage III. Creatinine has trended upward to 2.6. Will monitor intake and output. Serial labs. He may need IV fluids. (5) (HFpEF) heart failure with preserved ejection fraction: Plan: Stable. Monitor intake and output. Continue current medical management (6) Stage IV squamous cell carcinoma of lung: Plan: With associated malignant pleural effusion. Left thoracentesis completed earlier this admission. Appreciate pulmonary medicine consultation recommendations (7) Type 2 diabetes mellitus: Plan: Lantus switched to NPH 20 units twice daily. Sliding scale coverage ordered. ADA diet. (8) Anemia: Plan: Acute on chronic. He received a blood transfusion this admission. No overt bleeding at this time. Serial labs Plan It appears he will need SNF placement at discharge. OT and PT services have been requested. Admission and Anticipated Discharge Date Admission Date: April 22, 2024 Subjective He is easily awakened from sleep. He is bedfast and appears very weak. It appears he will need SNF placement. Current CODE STATUS is full code. I discussed this with him and he is considering DNR status knowing that DNR does not mean do not treat. Left knee culture earlier this admission is growing Klebsiella. He remains on intravenous cefepime for now. Lantus has been switched to NPH insulin. Creatinine has increased to 2.6. Will follow. If this worsens, he will need IV fluids. Left thoracentesis was completed earlier this admission. Pathology is negative for malignancy but undoubtedly this is a malignant pleural effusion related to his underlying lung cancer. Review of Systems 2 Review of Systems: Constitutionalno fever or chills ENTno blurred vision, no double vision, no epistaxis, no sore throat Respiratoryno cough, no wheezing, no shortness of breath Cardiacno palpitations, no chest pain, no syncope Mariann nausea, vomiting, diarrhea, melena, hematochezia GUno urinary retention, no urinary incontinence, no dysuria, no hematuria Musculoskeletalno joint pain, no muscle tenderness Skinno bruising, no rashes, no pruritus Neurogeneralized weakness. No focal deficits Psychdepressed affect Physical Exam 2 Physical Exam: General-alert and oriented x3, no fever, no chills HEENT-head atraumatic and normocephalic, pupils equal and reactive to light, extraocular muscles intact Neck-no lymphadenopathy or thyromegaly, trachea midline Chest-scattered bilateral rhonchi. No wheezing. Cardiac -regular rate and rhythm, normal S1 and S2 Abdomen-normal bowel sounds, no hepatosplenomegaly Extremities-no cyanosis, clubbing, or edema Neuro-cranial nerves II through XII intact, motor and sensory function within normal limits, strength symmetrical with generalized weakness, no focal deficits Psych-depressed affect Results & Data Results & Data Vital Signs (Past 12 Hours) Vital Signs Temp Pulse Pulse Resp BP BP Pulse Ox 04/27/24 08:00 04/27/24 08:00 36.4 C L 63 18 114/60 111/62 97 04/27/24 06:33 78 23 100 04/27/24 06:33 78 23 100 04/27/24 03:07 79 21 100 04/27/24 03:03 36.2 C L 80 16 105/51 L 97 04/27/24 00:37 76 20 98 O2 Del Method FiO2 04/27/24 08:00 CPAP 04/27/24 08:00 BiPAP 04/27/24 06:33 CPAP 04/27/24 06:33 35 04/27/24 03:07 35 04/27/24 03:03 BiPAP 04/27/24 00:37 BiPAP 35 Laboratory Results 04/27/24 06:22 04/27/24 06:22 PG Care Time/CCT Total # of Minutes Spent Total Time Spent with Patient: Total time spent is greater than 50% in coordination of care (as documented) at patient's floor/unit and/or counseling patient: Coding Level of Care Code 00410 SUB INP/OBS CARE 3/50MIN Diagnoses Acute hypoxemic respiratory failure J96.01 Septic joint of left knee joint M00.9 Malignant pleural effusion J91.0 Acute kidney injury superimposed on CKD N17.9; N18.9 (HFpEF) heart failure with preserved ejection fraction I50.30 Stage IV squamous cell carcinoma of lung C34.90 Type 2 diabetes mellitus E11.9 Anemia D64.9
--- NOTE | 2024-04-27 12:19 | XRay Report ---
XR chest 1V not portable CLINICAL HISTORY: s/p left thora COMPARISON STUDY: 04/26/2024 FINDINGS: Stable mild cardiomegaly without pulmonary vascular congestion. Stable diffuse pulmonary in terstitial opacities. There is a possible very small left lateral basilar pneumothorax, likely ex vac uo. There is residual left-sided pleural thickening or trace pleural fluid. IMPRESSION: Possible very small left basilar pneumothorax, likely ex vacuo due to failure of the abn ormal left lung base to reexpand after removal of pleural fluid. ACT 112: Negative or not required by law. Electronically signed by: Keith Burger M.D. 04/27/2024 12:18 PM
[2024-04-27 13:08] LABS: Glucose Pleural Fluid 168 mg/dl; LDH Pleural Fluid 1316 U/L; Total Protein Pleural Fluid < 3.0 gm/dl
[2024-04-27] MEDS: INSULIN ASPART PER UNIT CHARGE SC SCH (13:21)
--- NOTE | 2024-04-27 13:25 | Pulmonology Progress Note ---
Date of Service April 27, 2024 Assessment & Plan (1) Loculated pleural effusion: (2) Chronic obstructive pulmonary disease: (3) Acute respiratory failure with hypoxia: (4) Metastatic lung cancer (metastasis from lung to other site): Plan Impression: 78-year-old male with history of lung cancer recently having received pembrolizumab admitted with septic arthritis as well as pleural effusion and hypoxemic respiratory failure. Recommendation: 1. CT of the chest from 04/08/2024 was reviewed. It demonstrates patchy parenchymal abnormalities with small pleural effusions. Cannot rule out immune checkpoint inhibitor toxicity. Other differentials would include fluid overload and diuresis may be warranted however the exudative effusion would be somewhat unusual. If this were to be ICI toxicity, high-dose steroids could be considered. Would recommend repeating his CT scan 2. Bilateral pleural effusions: Patient underwent repeat thoracentesis on the right today. Await pleural fluid characteristics. Defer antibiotics to infectious disease at this time 3. Recurrent metastatic non-small cell lung cancer. Would recommend palliative care consultation to discuss goals of therapy. This is not a curable disease. Unclear if the patient is a candidate to receive pembrolizumab in the future 4. Hypoxemic respiratory failure: Continue to wean oxygen as tolerated. Out of bed to chair as tolerated. Continue incentive spirometry. 5. Sleep apnea: The patient has not demonstrated significant hypercarbia during this admission. pH has been normal. Can continue CPAP at night but this is not required to normalize his ventilatory status. Will continue to follow with you. Feel free to contact us with questions or concerns Admission and Anticipated Discharge Date Admission Date: April 22, 2024 Subjective Patient seen and examined. EMR reviewed. Discussed with off going traction power engineer. The patient is somewhat sleepy this morning but does arouse to verbal and tactile stimulus. He denies any respiratory issues currently. He is currently on a 2 L oxy mask. He underwent thoracentesis earlier today. Review of Systems Review of Systems: Unobtainable due to reduced consciousness Physical Exam Constitutional: + lethargic; no acute distress Neck: trachea midline, no thyromegaly Respiratory: normal respiratory effort, lungs clear to auscultation Cardiovascular: RRR, no murmur, no edema Gastrointestinal (Abdomen): normal bowel sounds, soft, nontender, no hepatosplenomegaly Musculoskeletal: Extremities: extremities normal to inspection Skin: no rashes, warm and dry Neurologic: Somnolent Lymphatic: no cervical lymphadenopathy Results & Data Results & Data Vital Signs (Past 12 Hours) Vital Signs Temp Pulse Pulse Pulse Resp BP BP 04/27/24 12:28 36.5 C 76 18 116/57 L 04/27/24 08:00 04/27/24 08:00 36.4 C L 63 18 114/60 111/62 04/27/24 06:33 78 23 04/27/24 06:33 78 23 04/27/24 03:07 79 21 04/27/24 03:03 36.2 C L 80 16 105/51 L Pulse Ox O2 Del Method O2 Flow Rate FiO2 04/27/24 12:28 98 Oxymask 2 04/27/24 08:00 CPAP 04/27/24 08:00 97 BiPAP 04/27/24 06:33 100 CPAP 04/27/24 06:33 100 35 04/27/24 03:07 100 35 04/27/24 03:03 97 BiPAP Critical Care Results & Data Vital Signs (Past 12 Hours) Vital Signs Temp Pulse Pulse Pulse Resp BP BP 04/27/24 12:28 36.5 C 76 18 116/57 L 04/27/24 08:00 04/27/24 08:00 36.4 C L 63 18 114/60 111/62 04/27/24 06:33 78 23 04/27/24 06:33 78 23 04/27/24 03:07 79 21 04/27/24 03:03 36.2 C L 80 16 105/51 L Pulse Ox O2 Del Method O2 Flow Rate FiO2 04/27/24 12:28 98 Oxymask 2 04/27/24 08:00 CPAP 04/27/24 08:00 97 BiPAP 04/27/24 06:33 100 CPAP 04/27/24 06:33 100 35 04/27/24 03:07 100 35 04/27/24 03:03 97 BiPAP Lab & Micro Results (Past 24 Hours) RBC 2.60 M/uL (4.70-6.10) L 04/27/24 WBC 8.97 K/ul (4.8-10.8) 04/27/24 Hgb 8.3 g/dl (14.0-18.0) L 04/27/24 Hct 26.2 % (42.0-52.0) L 04/27/24 MCV 100.8 fL (80.0-100.0) H 04/27/24 MCH 31.9 pg (25.0-34.0) 04/27/24 MCHC 31.7 g/dL (32.0-36.0) L 04/27/24 RDW Standard Deviation 61.0 fL (36.4-46.3) H 04/27/24 RDW Coefficient of Variation 16.9 % (11.5-14.5) H 04/27/24 Plt Count 148 K/uL (130-400) 04/27/24 MPV 10.5 fL (9.4-12.4) 04/27/24 Nucleated Red Blood Cells % (auto) 0.4 % 04/27 Nucleated RBC Absolute Count (auto) 0.04 K/uL (0.00-0.12) 0 04/27/24 Na 140 mmol/L (136-145) 04/27/24 K 3.9 mmol/L (3.5-5.1) 04/27/24 Cl 103 mmol/L (98-107) 04/27/24 CO2 31 mmol/L (21-32) 04/27/24 Anion Gap 6 (3-11) 04/27/24 BUN 46 mg/dl (6-23) H 04/27/24 Creatinine 2.67 mg/dl (0.6-1.4) H 04/27/24 BUN/Creatinine Ratio 17.2 (10-20) 04/27/24 Glu 233 mg/dl (70-99(Fasting)) H 04/27/24 Ca 8.7 mg/dl (8.6-10.3) 04/27/24 Calcium Level 8.7 mg/dl (8.6-10.3) 04/27/24 06:22 Prothromb Time International Ratio 1.0 (0.9-1.1) 04/27/24 06:2 2 Microbiology 04/23/24 Unknown Gram Stain - Final Knee Aerobic and Anaerobic Culture - Preliminary No growth to date. 04/23/24 17:40 Gram Stain - Final Pleural Fluid Aerobic and Anaerobic Culture - Preliminary No growth to date. 04/22/24 16:40 Gram Stain - Final Knee,Left Aerobic and Anaerobic Culture - Final Klebsiella pneumoniae Diagnostic Findings (Past 24 Hours) Chest X-Ray 04/27/24 11:36 XR chest 1V not portable CLINICAL HISTORY: s/p left thora COMPARISON STUDY: 04/26/2024 FINDINGS: Stable mild cardiomegaly without pulmonary vascular congestion. Stable diffuse pulmonary interstitial opacities. There is a possible very small left lateral basilar pneumothorax, likely ex vacuo. There is residual left-sided pleural thickening or trace pleural fluid. IMPRESSION: Possible very small left basilar pneumothorax, likely ex vacuo due to failure of the abnormal left lung base to reexpand after removal of pleural fluid. ACT 112: Negative or not required by law. Electronically signed by: Keith Burger M.D. 04/27/2024 12:18 PM I & O Totals 24 Hours 04/26/24 04/27/24 04/28/24 06:59 06:59 06:59 Intake Total 997.5 / 997.5 775 / 775 50 / 50 Output Total 950 / 950 600 / 600 Balance 47.5 / 47.5 175 / 175 50 / 50 Cumulative 04/22/24 14:12 thru 04/27/24 11:10 Intake Total 5842.5 Output Total 7558 Balance -1715.5 RT Ventilator Mngmt (Last Documented) Ventilator Ordered Settings Respiratory Rate 18 04/27/24 12:28 Fraction of Inspired Oxygen 35 04/27/24 06:33 Ventilator - PT Measurements Respiratory Rate 18 PG Care Time/CCT Total # of Minutes Spent Total Time Spent with Patient: Total time spent is greater than 50% in coordination of care (as documented) at patient's floor/unit and/or counseling patient: Coding Level of Care Code 67220 SUB INP/OBS CARE 2/35MIN Diagnoses Loculated pleural effusion J90 Chronic obstructive pulmonary disease J44.9 Acute respiratory failure with hypoxia J96.01 Metastatic lung cancer (metastasis from lung to other site) C34.90
[2024-04-27 14:09] LABS: Appearance Pleural Fluid Cloudy; Color Pleural Fluid Amber; Neutrophils, Fluid 100 %; RBC Pleural Fluid Auto 16000 /uL; Source Pleural Fluid Left Lung; WBC Pleural Fluid Auto 5461 /uL
--- NOTE | 2024-04-27 14:29 | CT Scan Report ---
CT chest diagnostic wo con CT DOSE: 713.02 mGy.cm CLINICAL HISTORY: 78 years-old Male with Possible pembrolizumab toxicity. Acute shortness of breath TECHNIQUE: Multiaxial CT images of the chest were performed without contrast. A dose lowering techni que was utilized adhering to the principles of ALARA. COMPARISON: Chest radiograph of same day, chest CT 04/08/2024, Chest radiograph 04/07/2024, chest CT to April 03, 2024, Chest CT February 29, 2024. CT of the abdomen and pelvis March 31, 2024. Chest rad iograph April 02, 2024. FINDINGS: The heart is mildly enlarged. There is moderate coronary artery and aortic valvular calcifi cation. There is no pericardial effusion. Calcified mediastinal and right hilar lymph nodes appear ge nerally unchanged. As previously described, the prominent mediastinal lymph nodes are similar to CT o f February 29, 2024. A prevascular lymph node on image 98 and measures 1.2 x 0.8 cm. Moderate size left pleural effusion has mildly increased in size. Left-sided pleural thickening is un changed. No right pleural effusion. There is no pneumothorax. Band-like left upper lobe opacity and s ubpleural left lower lobe opacity are similar to CT of February 29, 2024. Central airways are patent. I nterlobular septal thickening has progressed from the 04/08/2024 exam. Moderate pulmonary emphysema wi th bronchial wall thickening. There is progressive worsening of the patchy bilateral ground glass den sities with mild patchy and scattered consolidative and reticulonodular opacities. Multiple subacute to chronic left-sided rib fractures are again noted. There are no acute fractures w ithin the thorax. Small hiatal hernia with distal esophageal wall thickening. No acute upper abdomina l abnormality. Bilateral renal vascular calcifications. IMPRESSION: 1. Cardiomegaly with interstitial pulmonary edema and increased size of the left pleural effusion. 2. Chronic pleural thickening of the left hemithorax. 3. Emphysema with progressive patchy bilateral pulmonary opacities suggestive of a superimposed infec tious or inflammatory pneumonitis. 4. Bandlike left upper lobe opacity redemonstrated suggestive of posttreatment related changes. 5. Unchanged mediastinal and hilar lymphadenopathy. ACT 112: Negative or not required by law. Electronically signed by: Dinh Healy M.D. 04/27/2024 2:28 PM
--- NOTE | 2024-04-27 14:34 | Ultrasound Report ---
ULTRASOUND-GUIDED LEFT THORACENTESIS CLINICAL HISTORY: Small loculated left pleural effusion PROCEDURE: Procedure and risks were explained. Informed consent was obtained from his . A final t imeout was completed. The left posterior thorax was prepped and draped in sterile fashion. 1% lidocai ne was utilized for skin anesthesia. Utilizing ultrasound guidance, a 5 Spanish safety centesis catheter was advanced into the small locula chris left pleural effusion. Ultrasound images were obtained. A total of 150 mL of cloudy bertram-colored pleural fluid was removed and sent to the lab. The catheter was removed and Band-Aid applied. The pa tient tolerated the procedure well. A chest x-ray will be obtained post procedure. Vital signs will b e monitored on the floor. IMPRESSION: Ultrasound-guided left thoracentesis as above. Performed, dictated, and signed by Nico Alston PA-C; to be co-signed by Dr. Keith Burger. Electronically signed by: Keith Burger M.D. 04/27/2024 4:08 PM
[2024-04-27] MEDS: INSULIN HUMAN NPH SC SCH (16:48)
[2024-04-28 06:03] LABS: Hematocrit (blood only) 26.7 % (42.0-52.0); Hemoglobin 8.5 g/dl (14.0-18.0); Mean Corpuscular Hemoglobin 32.1 pg (25.0-34.0); Mean Corpuscular Hgb Conc 31.8 g/dL (32.0-36.0); Mean Corpuscular Volume 100.8 fL (80.0-100.0); Nucleated RBC # (auto) 0.05 K/uL (0.00-0.12); Nucleated RBC % (auto) 0.5 %; Platelet Count 159 K/uL (130-400); RDW Standard Deviation 60.6 fL (36.4-46.3); Red Blood Count 2.65 M/uL (4.70-6.10); White Blood Count 9.47 K/ul (4.8-10.8)
[2024-04-28 06:15] LABS: BUN Creatinine Ratio 17.1 (10-20); Calcium 8.6 mg/dl (8.6-10.3); Creatinine Clr Calc Pharmacy 30.4 ml/min; Potassium 3.6 mmol/L (3.5-5.1)
[2024-04-28 06:46] LABS: Basophils # (auto) 0.03 K/uL (0.00-0.20); Basophils % (auto) 0.3 %; Eosinophils # (auto) 0.09 K/uL (0.00-0.50); Immature Granulocytes # (auto) 0.28 K/uL (0.01-0.20); Lymphocytes # (auto) 1.07 K/uL (1.20-3.40); Lymphocytes % (auto) 11.3 %; Monocytes # (auto) 0.92 K/uL (0.11-0.59); Monocytes % (auto) 9.7 %; Neutrophils # (auto) 7.08 K/uL (1.40-6.50); Neutrophils % (auto) 74.7 %
--- NOTE | 2024-04-28 07:52 | XRay Report ---
EXAM: XR chest 1V portable CLINICAL HISTORY: copd, lung ca, malig eff, left thoracentesis X2 TECHNIQUE: X-ray images of the chest were obtained in posteroanterior (PA) and lateral projections. COMPARISON: compared to previous study 04/26/2024 FINDINGS: Pulmonary Parenchyma: Regressive course regarding the previously noted left sided pleural effusion (being mild in the current study). No right sided pleural effusion. Still noted diffuse coarse texture of both lung casey with newly devloped multiple bilateral opacities. Left middle zone thick atelectatic band is seen. Heart and Mediastinum: Heart size and shape are normal. No mediastinal widening or masses. No hilar or mediastinal lymphadenopathy. Prominent aortic arch. Soft Tissues: Soft tissues overlying the chest wall are unremarkable. IMPRESSION: 1. Regressive course regarding the previously noted left sided pleural effusion (being mild in the current study). 2. Still noted diffuse coarse texture of both lung casey with newly devloped multiple bilateral opacities. 3. Left middle zone thick atelectatic band. 4. Prominent aortic arch. Electronically signed by Keiko Feng 04-28-2024 07:52 AM
--- NOTE | 2024-04-28 10:54 | Pulmonology Progress Note ---
Date of Service April 28, 2024 Assessment & Plan (1) Loculated pleural effusion: (2) Chronic obstructive pulmonary disease: (3) Acute respiratory failure with hypoxia: (4) Metastatic lung cancer (metastasis from lung to other site): Plan Impression: 78-year-old male with history of lung cancer recently having received pembrolizumab admitted with septic arthritis as well as pleural effusion and hypoxemic respiratory failure. Recommendation: 1. Diffuse pulmonary infiltrates. Agree with hematology oncology's assessment earlier in the month that this may represent immune checkpoint inhibitor toxicity. He is doing okay currently so would hold off on additional steroids. He should not receive additional immunotherapy at this point in time. His performance status is poor enough that I do not think he can receive additional chemotherapy. This should be taken into consideration when determining his CODE STATUS and goals of therapy. 2. Bilateral pleural effusions: Patient underwent repeat thoracentesis on the right today. Exudative but improving. Still neutrophilic. Cultures negative and cytology negative. May have some component of fluid overload and diuretics may be appropriate if kidney function can tolerate 3. Recurrent metastatic non-small cell lung cancer. Has been seen by palliative care in the past. Potentially reengaging might be appropriate. 4. Hypoxemic respiratory failure: Continue to wean oxygen as tolerated. Out of bed to chair as tolerated. Continue incentive spirometry. 5. Sleep apnea: The patient has not demonstrated significant hypercarbia during this admission. pH has been normal. Can continue CPAP at night but this is not required to normalize his ventilatory status. Will continue to follow with you. Feel free to contact us with questions or concerns Admission and Anticipated Discharge Date Admission Date: April 22, 2024 Subjective Patient seen and examined. He states his breathing is better. He has no respiratory concerns today. No chest pain or palpitations. No cough or sputum production. Review of Systems 2 Review of Systems: All systems reviewed & are unremarkable except as noted in Subjective Physical Exam 2 Constitutional: no acute distress Neck: trachea midline, no thyromegaly Respiratory: normal respiratory effort, lungs clear to auscultation Cardiovascular: RRR, no murmur, no edema Gastrointestinal (Abdomen): normal bowel sounds, soft, nontender, no hepatosplenomegaly Musculoskeletal: Extremities: extremities normal to inspection Skin: no rashes, warm and dry Lymphatic: no cervical lymphadenopathy Results & Data Results & Data Vital Signs (Past 12 Hours) Vital Signs Temp Pulse Pulse Resp BP BP Pulse Ox 04/28/24 08:00 36.5 C 77 18 139/77 98 04/28/24 07:48 04/28/24 07:34 78 17 98 04/28/24 07:34 78 17 97 04/28/24 02:43 36.3 C L 80 16 146/73 H 97 04/28/24 02:13 78 23 96 04/28/24 00:58 04/27/24 23:46 94 H 04/27/24 23:09 36.6 C 88 18 141/54 H 92 04/27/24 23:01 85 19 92 O2 Del Method O2 Flow Rate FiO2 04/28/24 08:00 Nasal Cannula 2 04/28/24 07:48 CPAP 04/28/24 07:34 CPAP 35 04/28/24 07:34 35 04/28/24 02:43 BiPAP 04/28/24 02:13 35 04/28/24 00:58 Nasal Cannula, Oxymask, CPAP 3 04/27/24 23:46 04/27/24 23:09 BiPAP 04/27/24 23:01 35 Laboratory Results 04/28/24 05:43 04/28/24 05:43 Cytology from repeat fluid demonstrated numerous neutrophils but no evidence of malignancy Diagnostic Findings Chest x-ray from today was independently reviewed. There are patchy bilateral parenchymal densities which may be slightly worse on the right. The left sided parenchymal densities appear stable. No significant reaccumulation of pleural fluid CT chest diagnostic wo con 05/24/2024: Independently reviewed CT DOSE: 713.02 mGy.cm CLINICAL HISTORY: 78 years-old Male with Possible pembrolizumab toxicity. Acute shortness of breath TECHNIQUE: Multiaxial CT images of the chest were performed without contrast. A dose lowering technique was utilized adhering to the principles of ALARA. COMPARISON: Chest radiograph of same day, chest CT 04/08/2024, Chest radiograph 04/07/2024, chest CT to April 03, 2024, Chest CT February 29, 2024. CT of the abdomen and pelvis March 31, 2024. Chest radiograph April 02, 2024. FINDINGS: The heart is mildly enlarged. There is moderate coronary artery and aortic valvular calcification. There is no pericardial effusion. Calcified mediastinal and right hilar lymph nodes appear generally unchanged. As previously described, the prominent mediastinal lymph nodes are similar to CT of February 29, 2024. A prevascular lymph node on image 98 and measures 1.2 x 0.8 cm. Moderate size left pleural effusion has mildly increased in size. Left-sided pleural thickening is unchanged. No right pleural effusion. There is no pneumothorax. Band-like left upper lobe opacity and subpleural left lower lobe opacity are similar to CT of February 29, 2024. Central airways are patent. Interlobular septal thickening has progressed from the 04/08/2024 exam. Moderate pulmonary emphysema with bronchial wall thickening. There is progressive worsening of the patchy bilateral ground glass densities with mild patchy and scattered consolidative and reticulonodular opacities. Multiple subacute to chronic left-sided rib fractures are again noted. There are no acute fractures within the thorax. Small hiatal hernia with distal esophageal wall thickening. No acute upper abdominal abnormality. Bilateral renal vascular calcifications. IMPRESSION: 1. Cardiomegaly with interstitial pulmonary edema and increased size of the left pleural effusion. 2. Chronic pleural thickening of the left hemithorax. 3. Emphysema with progressive patchy bilateral pulmonary opacities suggestive of a superimposed infectious or inflammatory pneumonitis. 4. Bandlike left upper lobe opacity redemonstrated suggestive of posttreatment related changes. 5. Unchanged mediastinal and hilar lymphadenopathy. PG Care Time/CCT Total # of Minutes Spent Total Time Spent with Patient: Total time spent is greater than 50% in coordination of care (as documented) at patient's floor/unit and/or counseling patient: Coding Level of Care Code 50331 SUB INP/OBS CARE 2/35MIN Diagnoses Loculated pleural effusion J90 Chronic obstructive pulmonary disease J44.9 Acute respiratory failure with hypoxia J96.01 Metastatic lung cancer (metastasis from lung to other site) C34.90
--- NOTE | 2024-04-28 12:54 | Hospitalist Progress Note ---
Date of Service April 28, 2024 Assessment & Plan (1) Acute hypoxemic respiratory failure: Plan: Multifactorial due to COPD and underlying lung malignancy with malignant pleural effusion. Supplemental oxygen per nasal cannula to maintain saturation greater than 90%. Wean off as tolerated (2) Septic joint of left knee joint: Plan: Appreciate orthopedic consultation and recommendations. He underwent arthroscopy and washout several days ago. Postoperative day #4. Klebsiella isolated. Infectious disease consultation appreciated. Cefepime has been switched to intravenous Rocephin. Eventually he will be switched to oral ciprofloxacin going forward. (3) Malignant pleural effusion: Plan: He has now undergone left thoracentesis x 2 this admission. Cytology was negative but this undoubtedly is a malignant pleural effusion from known underlying lung cancer (4) Acute kidney injury superimposed on CKD: Plan: Baseline chronic kidney disease stage III. Creatinine trended upward to 2.6 but is now improving and down to 2.1.. Will monitor intake and output. Serial labs. (5) (HFpEF) heart failure with preserved ejection fraction: Plan: Stable. Monitor intake and output. Continue current medical management (6) Stage IV squamous cell carcinoma of lung: Plan: With associated malignant pleural effusion. Left thoracentesis completed twice this admission. Appreciate pulmonary medicine consultation recommendations (7) Type 2 diabetes mellitus: Plan: Lantus has been switched to NPH 20 units twice daily. Glucose is 130 this morning, April 28. Sliding scale coverage ordered. ADA diet. (8) Anemia: Plan: Acute on chronic. He received a blood transfusion this admission. No overt bleeding at this time. Serial labs Plan It appears he will need SNF placement at discharge. He is now agreeable to go to a facility at discharge. He is also agreeable to meet with palliative care. Admission and Anticipated Discharge Date Admission Date: April 22, 2024 Subjective He appears to be more alert and oriented today, April 28. He did not recognize me from yesterday and I reintroduced myself. We discussed his CODE STATUS again and he is considering switching to DNR status. We also discussed consulting palliative care. He has known underlying lung cancer with malignant effusion. He is now agreeable to considering SNF placement. Glucose is acceptable after switch from Lantus to NPH insulin. Creatinine gerard to 2.6 but is now down to 2.1. Chest x-ray done today, is negative for pneumothorax after the repeat left thoracentesis was done yesterday, April 27. He is postoperative day #4 after washout of the septic left knee joint that grew Klebsiella. Review of Systems 2 Review of Systems: Constitutionalno fever or chills ENTno blurred vision, no double vision, no epistaxis, no sore throat Respiratoryno cough, no wheezing. Shortness of breath with exertion Cardiacno palpitations, no chest pain, no syncope Mariann nausea, vomiting, diarrhea, melena, hematochezia GUno urinary retention, no urinary incontinence, no dysuria, no hematuria Musculoskeletalno joint pain, no muscle tenderness Skinno bruising, no rashes, no pruritus Neurogeneralized weakness. No focal deficits Psychdepressed affect Physical Exam 2 Physical Exam: General-alert and oriented x3, no fever, no chills HEENT-head atraumatic and normocephalic, pupils equal and reactive to light, extraocular muscles intact Neck-no lymphadenopathy or thyromegaly, trachea midline Chest-scattered bilateral rhonchi. No wheezing. Cardiac -regular rate and rhythm, normal S1 and S2 Abdomen-normal bowel sounds, no hepatosplenomegaly Extremities-no cyanosis, clubbing, or edema Neuro-cranial nerves II through XII intact, motor and sensory function within normal limits, strength symmetrical with generalized weakness, no focal deficits Psych-depressed affect Results & Data Results & Data Vital Signs (Past 12 Hours) Vital Signs Temp Pulse Pulse Resp BP Pulse Ox O2 Del Method 04/28/24 08:00 36.6 C 89 18 145/69 H 97 Nasal Cannula 04/28/24 08:00 78 04/28/24 08:00 36.5 C 77 18 139/77 98 Nasal Cannula 04/28/24 07:48 CPAP 04/28/24 07:34 78 17 98 CPAP 04/28/24 07:34 78 17 97 04/28/24 02:43 36.3 C L 80 16 146/73 H 97 BiPAP 04/28/24 02:13 78 23 96 04/28/24 00:58 Nasal Cannula, Oxymask, CPAP O2 Flow Rate FiO2 04/28/24 08:00 2 04/28/24 08:00 04/28/24 08:00 2 04/28/24 07:48 04/28/24 07:34 35 04/28/24 07:34 35 04/28/24 02:43 04/28/24 02:13 35 04/28/24 00:58 3 Laboratory Results 04/28/24 05:43 04/28/24 05:43 PG Care Time/CCT Total # of Minutes Spent Total Time Spent with Patient: Total time spent is greater than 50% in coordination of care (as documented) at patient's floor/unit and/or counseling patient: Coding Level of Care Code 83865 SUB INP/OBS CARE 3/50MIN Diagnoses Acute hypoxemic respiratory failure J96.01 Septic joint of left knee joint M00.9 Malignant pleural effusion J91.0 Acute kidney injury superimposed on CKD N17.9; N18.9 (HFpEF) heart failure with preserved ejection fraction I50.30 Stage IV squamous cell carcinoma of lung C34.90 Type 2 diabetes mellitus E11.9 Anemia D64.9
--- NOTE | 2024-04-28 14:11 | Palliative Care Consultation ---
Date of Consultation April 28, 2024 Assessment & Plan (1) Altered mental status: CAM-ICU positive for delirium (2) Anxiety associated with cancer diagnosis: (3) Dyspnea and respiratory abnormalities: Improved with thoracentesis, remains on 2 L nasal cannula (4) Discussion about advance care planning held with family member: Face to face ACP x 60min split between bedside face to face with pt x 20min then telephonic ACP x 40min I met with Jeffrey Alvarez and spoke with his , Geno, by phone. jeffrey is confused/+AMS, could not really give me much HPI. He was unable to use his cell to call his etc. When I spoke with Geno, she advised she believes he is sundowning or has spent too much time in the hospital (?delirium) and then states the following: "(1) does he really have lung cancer/I want him to get a PET scan and confirm it is lung cancer; (2) I want him home today if I can, I have a private caregiver already in place; (3) Jeffrey wants to be full code and have everything done but if he's dying he only wants to be home and not on machines." I spent a fair amount of time discussing these issues with her. We spoke about code status and CPR survival data. For now, she wants to see if his "delirium or sundowning" gets better once he is home and she will rediscuss with him. I reviewed home health vs home hospice. She has worked for hospice in the past and for now declines hospice but is agreeable to home health referral with PT if possible. She needs a wheelchair and oxygen set up for him before he comes home and she prefers to use [facility]. She was very aware of chemo not being a safe option and agreed with this; she also expressed understanding that pembro related pneumonitis means no ICI for now and will plan to follow up in oncology clinic in a few weeks with Dr Choudhury and myself for ongoing GOC/symptom mgt. (5) Loculated pleural effusion: (6) Palliative care by specialist: (7) Metastatic lung cancer (metastasis from lung to other site): (8) Stage IV squamous cell carcinoma of lung: (9) (HFpEF) heart failure with preserved ejection fraction: Plan As above Thank you for allowing us to participate in the ongoing care of this patient. Please page with any additional concerns. Emily Ashley DNP Director, Palliative Medicine History of Present Illness Attending Physician: Jose Antonio Clemente MD History of Present Illness Robson Alvarez (Marc) was readmitted 04/22/24 following [facility] admission 03/31 to 04/11/24 with dc to [facility]. he presented to ED with c/o left knee swelling and pain, +joint effusion, +septic knee Also found to have a Left lung pneumonia with moderate-sized parapneumonic effusion with resp failure; likely ICI toxicity Microbiology of Knee effusion: Left knee synovial fluid culture 04/21/2024 rare Klebsiella pneumoniae (pansensitive) Blood culture 04/22/2024 NGTD Left knee synovial fluid culture 04/22 rare Klebsiella pneumoniae (prelim) MRSA nasal screen 04/23/2024 negative Antibiotics Cefepime 04/22 now switched to ceftriaxone 04/27/24 Vancomycin d/c 04/23 arthroscopic debridement for [place] left knee joint septic arthritis on 04/[address] Kumari S/P thoracentesis x2, cytology unremarkable for malignant cells but overall felt to be malignant effusions, +exudative Jeffrey is seen at bedside, no family present. He is unable to provide a significant HPI. He is confused and fumbling with attempts to try and utilize his phone, the remote, or even answer simple questions. Allergies Allergy/AdvReac Type Severity Reaction Status Date / Time adhesive Allergy Mild Silk/plastic Verified 03/23/24 09:58 adhesive tape (redness, blistering) Sulfa (Sulfonamide AdvReac Intermediate nausea & Verified 03/23/24 09:58 Antibiotics) vomiting Home Medications Medication Instructions Recorded Confirmed Type pantoprazole 40 mg tablet,delayed 40 mg PO BID 12/23/18 04/22/24 History release (Protonix) CPAP Machine #1 ea 04/22/19 04/22/24 Rx CPAP Supplies #1 ea 04/22/19 04/22/24 Rx CPAP Machine #1 ea 08/10/19 04/22/24 Rx albuterol sulfate 90 mcg/actuation 2 puffs inhalation Q6H PRN 08/10/19 04/22/24 Rx aerosol inhaler (Ventolin HFA) shortness of breath or wheezing #8.5 grams citalopram 40 mg tablet (Celexa) 60 mg PO QAM 04/04/21 04/22/24 History aspirin 325 mg tablet 325 mg PO DAILY 07/27/21 04/22/24 History benzonatate 200 mg capsule 200 mg PO Q8H PRN cough 01/08/23 04/22/24 History insulin degludec 100 unit/mL (3 34 unit subcut QAM diabetes 01/08/23 04/22/24 History mL) subcutaneous pen (Tresiba FlexTouch U-100 insulin) linaclotide 290 mcg capsule 290 mcg PO DAILY 01/08/23 04/22/24 History (Linzess) nitroglycerin 0.4 mg sublingual 0.4 mg sublingual Q5M PRN Chest 01/08/23 History tablet (Nitrostat) Pain fluticasone furoate 50 1 inh inhalation DAILY 07/30/23 04/22/24 History mcg-vilanterol 25 mcg/dose inhalation powder (Breo Ellipta) clopidogrel 75 mg tablet 75 mg PO DAILY 02/28/24 04/22/24 History gabapentin 800 mg tablet 800 mg PO TID 02/28/24 04/22/24 History ondansetron 8 mg disintegrating 8 mg PO Q8 PRN N/V 02/28/24 04/22/24 History tablet oxycodone 5 mg tablet 5 mg PO .EVERY 4-6 HRS PRN Pain 02/28/24 04/22/24 History magnesium oxide 400 mg PO DAILY #14 tabs 03/01/24 04/22/24 Rx insulin NPH isoph U-100 human 100 15 unit (0.15 mL) subcut .COMPLEX 03/23/24 04/22/24 Rx unit/mL (3 mL) subcutaneous pen #15 mL (Humulin N NPH U-100 Insulin KwikPen) insulin aspart 10 unit subcut AC 04/22/24 04/22/24 History (niacinamide)(U-100) 100 unit/mL(3 mL) subcutaneous pen (Fiasp FlexTouch U-100 Insulin) rosuvastatin 40 mg tablet 40 mg PO DAILY 04/22/24 04/22/24 History Patient History Medical History Paroxysmal A-fib Stage 3b chronic kidney disease Stroke Immediately after spinal fusion 04/2019---went into kidney failure at the same time > only deficit is sometimes he "dribbles out of the left side of his mouth" CAD (coronary artery disease) angioplasty/KARRIE to pRCA (2014) Synergy stent (11/03/2020) after failed stress test Acute and chronic respiratory failure with hypercapnia Hyperkalemia Urinary retention Hypoxia Somnolence Arthritis Urinary problem urinary hesitancy Spinal stenosis Diabetes IDDM Sleep apnea awaiting CPAP Hypertension Carotid arterial disease "no ICA stenosis.. severe left ECA stenosis" per cardiology office visit note 03/2019 > follows with Dr. Reyes in [place] Interstitial lung disease Surgical History History of elbow surgery right History of melanoma excision History of lumbar spinal fusion L5-S1 decompression/fusion (09/17/19): Grade view 2, Glidescope#3, ETT 8.0 at [facility] Status post lumbar surgery History of arthroscopy of right shoulder History of colonoscopy History of tonsillectomy History of hernia surgery X2 History of thumb surgery R/L History of repair of left rotator cuff History of cardiac cath stent x1 (2014) Synergy stent x1 (11/03/2020) Family History Mother Diabetes Heart disease Cancer Lung cancer Father Cancer Oral cancer Other No family history of adverse response to anesthesia Social History Smoking Status: Current every day smoker Tobacco Type: Cigarettes Cigarettes Per Day: A pack; Second Hand Exposure: No; Do You Dip or Chew Tobacco: No; Hx Alcohol Use: No Hx Substance Use: No Preferred Language: Estonian Communication Ability: Effective Visual Impairment: No Limitations Hearing Ability: Normal Change Control Analyst Required: No Beliefs That Will Affect Care: None Current Living Situation: Spouse Current Living Situation Comment: Home current occupational status: retired Feels Safe at Home: Yes Childhood Exposure to Second-Hand Smoke: Yes Diet Comment: food choices with less carbs, uses sugar substitute Assistive Devices: Glasses and Walker Review of Systems Review of Systems: Unobtainable due to cognitive status Physical Exam Physical Exam: Chronically ill-appearing, lying in bed, no overt distress Mild bitemporal wasting. PERRLA, EOMI's Neck supple, trachea midline, no thyromegaly, no stridor Respiratory effort is normal at rest, no conversational dyspnea noted, lungs are diminished but otherwise clear. S1-S2, no gross murmur noted, no gross JVD Abdomen distended, bowel sounds present, nontender to palpation Extremities with trace edema bilateral lower extremities, mild overall weakness, moving all extremities Skin is pale, warm, dry, no overt rashes, few scattered ecchymoses Neuro: Patient is awake, will answer to his name. CAM-ICU screening as follows: Acute onset or fluctuating mental status:"Has the patient's mental status changed significantly in the last 24 hours?" yes Inattention:"Can you squeeze my hand when I say the letter 'A' if you hear it in the following series of letters: '[id number]'?" Negative - no squeezes Disorganized thinking:"Will a stone float on water?" Patient reply yes: Altered level of consciousness: no, he is awake Results & Data Vital Signs (Past 12 Hours) Vital Signs Temp Pulse Pulse Resp BP Pulse Ox O2 Del Method 04/28/24 08:00 36.6 C 89 18 145/69 H 97 Nasal Cannula 04/28/24 08:00 78 04/28/24 08:00 36.5 C 77 18 139/77 98 Nasal Cannula 04/28/24 07:48 CPAP 04/28/24 07:34 78 17 98 CPAP 04/28/24 07:34 78 17 97 04/28/24 02:43 36.3 C L 80 16 146/73 H 97 BiPAP 04/28/24 02:13 78 23 96 O2 Flow Rate FiO2 04/28/24 08:00 2 04/28/24 08:00 04/28/24 08:00 2 04/28/24 07:48 04/28/24 07:34 35 04/28/24 07:34 35 04/28/24 02:43 04/28/24 02:13 35 Laboratory Results 04/28/24 04/28/24 04/28/24 Range/Units 11:09 07:44 05:43 WBC 9.47 (4.8-10.8) K/ul RBC 2.65 L (4.70-6.10) M/uL Hgb 8.5 L (14.0-18.0) g/dl POC Hgb (14.0-18.0) g/dl Hct 26.7 L (42.0-52.0) % POC Hct (42-52) % MCV 100.8 H (80.0-100.0) fL MCH 32.1 (25.0-34.0) pg MCHC 31.8 L (32.0-36.0) g/dL RDW Std Deviation 60.6 H (36.4-46.3) fL RDW Coeff of Jono 17.0 H (11.5-14.5) % Plt Count 159 (130-400) K/uL MPV 10.0 (9.4-12.4) fL Immature Gran % (Auto) 3.0 % Neut % (Auto) 74.7 % Lymph % (Auto) 11.3 % [place] % (Auto) 9.7 % Eos % (Auto) 1.0 % Baso % (Auto) 0.3 % Neut # (Auto) 7.08 H (1.40-6.50) K/uL Lymph # (Auto) 1.07 L (1.20-3.40) K/uL [place] # (Auto) 0.92 H (0.11-0.59) K/uL Eos # (Auto) 0.09 (0.00-0.50) K/uL Baso # (Auto) 0.03 (0.00-0.20) K/uL Immature Gran # (Auto) 0.28 H (0.01-0.20) K/uL Absolute Nucleated RBC 0.05 (0.00-0.12) K/uL Nucleated RBC % (auto) 0.5 % Toxic Granulation Dohle Bodies Polychromasia PT (9.0-12.0) Seconds INR (0.9-1.1) APTT (21-31) Seconds PTT Ratio POC pH (7.35-7.45) POC pCO2 (35-46) mmHg POC pO2 (80-95) mmHg POC HCO3 (19-24) fidel/L POC Total CO2 (24-31) mmol/L POC Base Excess (-9-1.8) fidel/L POC ABG O2 Sat (90-95) % VBG pH (7.36-7.41) VBG pCO2 (38-50) mmHg VBG pO2 mmHg VBG HCO3 mmol/L VBG O2 Saturation % VBG Base Excess mEq/L POC Sodium (135-144) mmol/L Sodium 142 (136-145) mmol/L POC Potassium (3.3-5.0) mmol/L Potassium 3.6 (3.5-5.1) mmol/L Chloride 105 (98-107) mmol/L Carbon Dioxide 31 (21-32) mmol/L Anion Gap 6 (3-11) BUN 37 H (6-23) mg/dl Creatinine 2.17 H D (0.6-1.4) mg/dl Est Cr Clr Drug Dosing 30.4 ml/min eGFR 30.60 BUN/Creatinine Ratio 17.1 (10-20) Glucose 130 H (70-99(Fasting)) mg/dl POC Glucose 193 H 170 H (70-99) mg/dl Estimat Average Glucose mg/dl Hemoglobin A1c (4.5-5.6) % Lactate (0.4-2.0) mmol/L Calcium 8.6 (8.6-10.3) mg/dl Magnesium (1.7-2.4) mg/dl Iron (35-175) mcg/dl TIBC (250-450) mcg/dl Transferrin (200-360) mg/dl Transferrin % Sat (20-50) % Total Bilirubin (0.2-1.0) mg/dl Direct Bilirubin (0-0.2) mg/dl AST (13-39) U/L ALT (7-52) U/L Alkaline Phosphatase (34-104) U/L Lactate Dehydrogenase (86-244) U/L Troponin I High Sens (0-20) pg/ml B-Natriuretic Peptide (0-100) pg/ml Total Protein (6.0-8.3) gm/dl Albumin (3.4-5.0) gm/dl Globulin (2.5-4.0) gm/dl Albumin/Globulin Ratio (0.9-2) Triglycerides (0-150) mg/dl Cholesterol (0-200) mg/dl LDL Cholesterol, Calc mg/dl VLDL Cholesterol, Calc (0-30) mg/dl HDL Cholesterol mg/dl Cholesterol/HDL Ratio (0-5) Procalcitonin (0-0.5) ng/ml TSH (0.300-4.500) uIu/ml Urine Color Urine Appearance (Clear) Urine pH (4.5-7.5) Ur Specific [place] (1.000-1.030) Urine Protein (Negative) Urine Glucose (UA) (Negative) Urine Ketones (Negative) Urine Blood (Negative) Urine Nitrite (Negative) Urine Bilirubin (Negative) Urine Urobilinogen (Negative) Ur Leukocyte Esterase (Negative) Urine WBC (Auto) (0-5) /hpf Urine RBC (Auto) (0-2) /hpf U Hyaline Cast (Auto) (0-2) /lpf U Epithel Cells (Auto) (0-2) /hpf Urine Bacteria (Auto) (None Seen) Fluid Neutrophils % % Fluid Lymphocytes % % Fluid Meso/Macro/[place] % % Fluid Comment Pleural Fluid Source Pleural Color Pleural Appearance Pleural pH (7.3-7.4) Pleural WBC (Auto) /uL Pleural RBC (Auto) /uL Pleural Total Protein gm/dl Pleural LDH U/L Pleural Glucose mg/dl Pleural Amylase U/L Synovial Source Synovial Color Synovial Appearance Synovial WBC (Auto) (0-200) /ul Synovial RBC (Auto) /uL Synovial Polynuclear % % Synovial Mononuclear % % Nasal Screen MRSA (PCR) (Negative) Stool Occult Bld Scrn (Negative) Random Vancomycin (10-20) mcg/ml SARS-CoV-2 (PCR) (Negative) Influenza Type A (PCR) (Neg) Influenza Type B (PCR) (Neg) RSV (RT-PCR) (Neg) Blood Type Antibody Screen Crossmatch 04/27/24 04/27/24 04/27/24 Range/Units Unknown 20:42 16:36 WBC (4.8-10.8) K/ul RBC (4.70-6.10) M/uL Hgb (14.0-18.0) g/dl POC Hgb (14.0-18.0) g/dl Hct (42.0-52.0) % POC Hct (42-52) % MCV (80.0-100.0) fL MCH (25.0-34.0) pg MCHC (32.0-36.0) g/dL RDW Std Deviation (36.4-46.3) fL RDW Coeff of Jono (11.5-14.5) % Plt Count (130-400) K/uL MPV (9.4-12.4) fL Immature Gran % (Auto) % Neut % (Auto) % Lymph % (Auto) % [place] % (Auto) % Eos % (Auto) % Baso % (Auto) % Neut # (Auto) (1.40-6.50) K/uL Lymph # (Auto) (1.20-3.40) K/uL [place] # (Auto) (0.11-0.59) K/uL Eos # (Auto) (0.00-0.50) K/uL Baso # (Auto) (0.00-0.20) K/uL Immature Gran # (Auto) (0.01-0.20) K/uL Absolute Nucleated RBC (0.00-0.12) K/uL Nucleated RBC % (auto) % Toxic Granulation Dohle Bodies Polychromasia PT (9.0-12.0) Seconds INR (0.9-1.1) APTT (21-31) Seconds PTT Ratio POC pH (7.35-7.45) POC pCO2 (35-46) mmHg POC pO2 (80-95) mmHg POC HCO3 (19-24) fidel/L POC Total CO2 (24-31) mmol/L POC Base Excess (-9-1.8) fidel/L POC ABG O2 Sat (90-95) % VBG pH (7.36-7.41) VBG pCO2 (38-50) mmHg VBG pO2 mmHg VBG HCO3 mmol/L VBG O2 Saturation % VBG Base Excess mEq/L POC Sodium (135-144) mmol/L Sodium (136-145) mmol/L POC Potassium (3.3-5.0) mmol/L Potassium (3.5-5.1) mmol/L Chloride (98-107) mmol/L Carbon Dioxide (21-32) mmol/L Anion Gap (3-11) BUN (6-23) mg/dl Creatinine (0.6-1.4) mg/dl Est Cr Clr Drug Dosing ml/min eGFR BUN/Creatinine Ratio (10-20) Glucose (70-99(Fasting)) mg/dl POC Glucose 192 H 112 H (70-99) mg/dl Estimat Average Glucose mg/dl Hemoglobin A1c (4.5-5.6) % Lactate (0.4-2.0) mmol/L Calcium (8.6-10.3) mg/dl Magnesium (1.7-2.4) mg/dl Iron (35-175) mcg/dl TIBC (250-450) mcg/dl Transferrin (200-360) mg/dl Transferrin % Sat (20-50) % Total Bilirubin (0.2-1.0) mg/dl Direct Bilirubin (0-0.2) mg/dl AST (13-39) U/L ALT (7-52) U/L Alkaline Phosphatase (34-104) U/L Lactate Dehydrogenase (86-244) U/L Troponin I High Sens (0-20) pg/ml B-Natriuretic Peptide (0-100) pg/ml Total Protein (6.0-8.3) gm/dl Albumin (3.4-5.0) gm/dl Globulin (2.5-4.0) gm/dl Albumin/Globulin Ratio (0.9-2) Triglycerides (0-150) mg/dl Cholesterol (0-200) mg/dl LDL Cholesterol, Calc mg/dl VLDL Cholesterol, Calc (0-30) mg/dl HDL Cholesterol mg/dl Cholesterol/HDL Ratio (0-5) Procalcitonin (0-0.5) ng/ml TSH (0.300-4.500) uIu/ml Urine Color Urine Appearance (Clear) Urine pH (4.5-7.5) Ur Specific [place] (1.000-1.030) Urine Protein (Negative) Urine Glucose (UA) (Negative) Urine Ketones (Negative) Urine Blood (Negative) Urine Nitrite (Negative) Urine Bilirubin (Negative) Urine Urobilinogen (Negative) Ur Leukocyte Esterase (Negative) Urine WBC (Auto) (0-5) /hpf Urine RBC (Auto) (0-2) /hpf U Hyaline Cast (Auto) (0-2) /lpf U Epithel Cells (Auto) (0-2) /hpf Urine Bacteria (Auto) (None Seen) Fluid Neutrophils % 100 % Fluid Lymphocytes % % Fluid Meso/Macro/[place] % % Fluid Comment Pleural Fluid Source Left Lung Pleural Color [place] Pleural Appearance Cloudy Pleural pH (7.3-7.4) Pleural WBC (Auto) 5461 /uL Pleural RBC (Auto) 64198 /uL Pleural Total Protein < 3.0 gm/dl Pleural LDH 1316 U/L Pleural Glucose 168 mg/dl Pleural Amylase U/L Synovial Source Synovial Color Synovial Appearance Synovial WBC (Auto) (0-200) /ul Synovial RBC (Auto) /uL Synovial Polynuclear % % Synovial Mononuclear % % Nasal Screen MRSA (PCR) (Negative) Stool Occult Bld Scrn (Negative) Random Vancomycin (10-20) mcg/ml SARS-CoV-2 (PCR) (Negative) Influenza Type A (PCR) (Neg) Influenza Type B (PCR) (Neg) RSV (RT-PCR) (Neg) Blood Type Antibody Screen Crossmatch 04/27/24 04/27/24 04/27/24 Range/Units 12:50 12:06 07:33 WBC (4.8-10.8) K/ul RBC (4.70-6.10) M/uL Hgb (14.0-18.0) g/dl POC Hgb (14.0-18.0) g/dl Hct (42.0-52.0) % POC Hct (42-52) % MCV (80.0-100.0) fL MCH (25.0-34.0) pg MCHC (32.0-36.0) g/dL RDW Std Deviation (36.4-46.3) fL RDW Coeff of Jono (11.5-14.5) % Plt Count (130-400) K/uL MPV (9.4-12.4) fL Immature Gran % (Auto) % Neut % (Auto) % Lymph % (Auto) % [place] % (Auto) % Eos % (Auto) % Baso % (Auto) % Neut # (Auto) (1.40-6.50) K/uL Lymph # (Auto) (1.20-3.40) K/uL [place] # (Auto) (0.11-0.59) K/uL Eos # (Auto) (0.00-0.50) K/uL Baso # (Auto) (0.00-0.20) K/uL Immature Gran # (Auto) (0.01-0.20) K/uL Absolute Nucleated RBC (0.00-0.12) K/uL Nucleated RBC % (auto) % Toxic Granulation Dohle Bodies Polychromasia PT (9.0-12.0) Seconds INR (0.9-1.1) APTT (21-31) Seconds PTT Ratio POC pH (7.35-7.45) POC pCO2 (35-46) mmHg POC pO2 (80-95) mmHg POC HCO3 (19-24) fidel/L POC Total CO2 (24-31) mmol/L POC Base Excess (-9-1.8) fidel/L POC ABG O2 Sat (90-95) % VBG pH (7.36-7.41) VBG pCO2 (38-50) mmHg VBG pO2 mmHg VBG HCO3 mmol/L VBG O2 Saturation % VBG Base Excess mEq/L POC Sodium (135-144) mmol/L Sodium (136-145) mmol/L POC Potassium (3.3-5.0) mmol/L Potassium (3.5-5.1) mmol/L Chloride (98-107) mmol/L Carbon Dioxide (21-32) mmol/L Anion Gap (3-11) BUN (6-23) mg/dl Creatinine (0.6-1.4) mg/dl Est Cr Clr Drug Dosing ml/min eGFR BUN/Creatinine Ratio (10-20) Glucose (70-99(Fasting)) mg/dl POC Glucose 88 82 (70-99) mg/dl Estimat Average Glucose mg/dl Hemoglobin A1c (4.5-5.6) % Lactate (0.4-2.0) mmol/L Calcium (8.6-10.3) mg/dl Magnesium (1.7-2.4) mg/dl Iron (35-175) mcg/dl TIBC (250-450) mcg/dl Transferrin (200-360) mg/dl Transferrin % Sat (20-50) % Total Bilirubin (0.2-1.0) mg/dl Direct Bilirubin (0-0.2) mg/dl AST (13-39) U/L ALT (7-52) U/L Alkaline Phosphatase (34-104) U/L Lactate Dehydrogenase (86-244) U/L Troponin I High Sens (0-20) pg/ml B-Natriuretic Peptide (0-100) pg/ml Total Protein (6.0-8.3) gm/dl Albumin (3.4-5.0) gm/dl Globulin (2.5-4.0) gm/dl Albumin/Globulin Ratio (0.9-2) Triglycerides (0-150) mg/dl Cholesterol (0-200) mg/dl LDL Cholesterol, Calc mg/dl VLDL Cholesterol, Calc (0-30) mg/dl HDL Cholesterol mg/dl Cholesterol/HDL Ratio (0-5) Procalcitonin (0-0.5) ng/ml TSH (0.300-4.500) uIu/ml Urine Color Urine Appearance (Clear) Urine pH (4.5-7.5) Ur Specific [place] (1.000-1.030) Urine Protein (Negative) Urine Glucose (UA) (Negative) Urine Ketones (Negative) Urine Blood (Negative) Urine Nitrite (Negative) Urine Bilirubin (Negative) Urine Urobilinogen (Negative) Ur Leukocyte Esterase (Negative) Urine WBC (Auto) (0-5) /hpf Urine RBC (Auto) (0-2) /hpf U Hyaline Cast (Auto) (0-2) /lpf U Epithel Cells (Auto) (0-2) /hpf Urine Bacteria (Auto) (None Seen) Fluid Neutrophils % % Fluid Lymphocytes % % Fluid Meso/Macro/[place] % % Fluid Comment Pleural Fluid Source Pleural Color Pleural Appearance Pleural pH 7.21 L (7.3-7.4) Pleural WBC (Auto) /uL Pleural RBC (Auto) /uL Pleural Total Protein gm/dl Pleural LDH U/L Pleural Glucose mg/dl Pleural Amylase U/L Synovial Source Synovial Color Synovial Appearance Synovial WBC (Auto) (0-200) /ul Synovial RBC (Auto) /uL Synovial Polynuclear % % Synovial Mononuclear % % Nasal Screen MRSA (PCR) (Negative) Stool Occult Bld Scrn (Negative) Random Vancomycin (10-20) mcg/ml SARS-CoV-2 (PCR) (Negative) Influenza Type A (PCR) (Neg) Influenza Type B (PCR) (Neg) RSV (RT-PCR) (Neg) Blood Type Antibody Screen Crossmatch 04/27/24 04/26/24 04/26/24 Range/Units 06:22 20:25 16:31 WBC 8.97 (4.8-10.8) K/ul RBC 2.60 L (4.70-6.10) M/uL Hgb 8.3 L (14.0-18.0) g/dl POC Hgb (14.0-18.0) g/dl Hct 26.2 L (42.0-52.0) % POC Hct (42-52) % MCV 100.8 H (80.0-100.0) fL MCH 31.9 (25.0-34.0) pg MCHC 31.7 L (32.0-36.0) g/dL RDW Std Deviation 61.0 H (36.4-46.3) fL RDW Coeff of Jono 16.9 H (11.5-14.5) % Plt Count 148 (130-400) K/uL MPV 10.5 (9.4-12.4) fL Immature Gran % (Auto) % Neut % (Auto) % Lymph % (Auto) % [place] % (Auto) % Eos % (Auto) % Baso % (Auto) % Neut # (Auto) (1.40-6.50) K/uL Lymph # (Auto) (1.20-3.40) K/uL [place] # (Auto) (0.11-0.59) K/uL Eos # (Auto) (0.00-0.50) K/uL Baso # (Auto) (0.00-0.20) K/uL Immature Gran # (Auto) (0.01-0.20) K/uL Absolute Nucleated RBC 0.04 (0.00-0.12) K/uL Nucleated RBC % (auto) 0.4 % Toxic Granulation Dohle Bodies Polychromasia PT 11.2 (9.0-12.0) Seconds INR 1.0 (0.9-1.1) APTT 29 (21-31) Seconds PTT Ratio 1.1 POC pH (7.35-7.45) POC pCO2 (35-46) mmHg POC pO2 (80-95) mmHg POC HCO3 (19-24) fidel/L POC Total CO2 (24-31) mmol/L POC Base Excess (-9-1.8) fidel/L POC ABG O2 Sat (90-95) % VBG pH (7.36-7.41) VBG pCO2 (38-50) mmHg VBG pO2 mmHg VBG HCO3 mmol/L VBG O2 Saturation % VBG Base Excess mEq/L POC Sodium (135-144) mmol/L Sodium 140 (136-145) mmol/L POC Potassium (3.3-5.0) mmol/L Potassium 3.9 (3.5-5.1) mmol/L Chloride 103 (98-107) mmol/L Carbon Dioxide 31 (21-32) mmol/L Anion Gap 6 (3-11) BUN 46 H (6-23) mg/dl Creatinine 2.67 H D (0.6-1.4) mg/dl Est Cr Clr Drug Dosing 24.7 ml/min eGFR 23.86 BUN/Creatinine Ratio 17.2 (10-20) Glucose 233 H (70-99(Fasting)) mg/dl POC Glucose 228 H 206 H (70-99) mg/dl Estimat Average Glucose mg/dl Hemoglobin A1c (4.5-5.6) % Lactate (0.4-2.0) mmol/L Calcium 8.7 (8.6-10.3) mg/dl Magnesium (1.7-2.4) mg/dl Iron (35-175) mcg/dl TIBC (250-450) mcg/dl Transferrin (200-360) mg/dl Transferrin % Sat (20-50) % Total Bilirubin (0.2-1.0) mg/dl Direct Bilirubin (0-0.2) mg/dl AST (13-39) U/L ALT (7-52) U/L Alkaline Phosphatase (34-104) U/L Lactate Dehydrogenase (86-244) U/L Troponin I High Sens (0-20) pg/ml B-Natriuretic Peptide (0-100) pg/ml Total Protein (6.0-8.3) gm/dl Albumin (3.4-5.0) gm/dl Globulin (2.5-4.0) gm/dl Albumin/Globulin Ratio (0.9-2) Triglycerides (0-150) mg/dl Cholesterol (0-200) mg/dl LDL Cholesterol, Calc mg/dl VLDL Cholesterol, Calc (0-30) mg/dl HDL Cholesterol mg/dl Cholesterol/HDL Ratio (0-5) Procalcitonin (0-0.5) ng/ml TSH (0.300-4.500) uIu/ml Urine Color Urine Appearance (Clear) Urine pH (4.5-7.5) Ur Specific [place] (1.000-1.030) Urine Protein (Negative) Urine Glucose (UA) (Negative) Urine Ketones (Negative) Urine Blood (Negative) Urine Nitrite (Negative) Urine Bilirubin (Negative) Urine Urobilinogen (Negative) Ur Leukocyte Esterase (Negative) Urine WBC (Auto) (0-5) /hpf Urine RBC (Auto) (0-2) /hpf U Hyaline Cast (Auto) (0-2) /lpf U Epithel Cells (Auto) (0-2) /hpf Urine Bacteria (Auto) (None Seen) Fluid Neutrophils % % Fluid Lymphocytes % % Fluid [place] % % Fluid Comment Pleural Fluid Source Pleural Color Pleural Appearance Pleural pH (7.3-7.4) Pleural WBC (Auto) /uL Pleural RBC (Auto) /uL Pleural Total Protein gm/dl Pleural LDH U/L Pleural Glucose mg/dl Pleural Amylase U/L Synovial Source Synovial Color Synovial Appearance Synovial WBC (Auto) (0-200) /ul Synovial RBC (Auto) /uL Synovial Polynuclear % % Synovial Mononuclear % % Nasal Screen MRSA (PCR) (Negative) Stool Occult Bld Scrn (Negative) Random Vancomycin (10-20) mcg/ml SARS-CoV-2 (PCR) (Negative) Influenza Type A (PCR) (Neg) Influenza Type B (PCR) (Neg) RSV (RT-PCR) (Neg) Blood Type Antibody Screen Crossmatch 04/26/24 04/26/24 04/26/24 Range/Units 11:30 09:39 07:29 WBC (4.8-10.8) K/ul RBC (4.70-6.10) M/uL Hgb (14.0-18.0) g/dl POC Hgb 7.8 L (14.0-18.0) g/dl Hct (42.0-52.0) % POC Hct 23 L (42-52) % MCV (80.0-100.0) fL MCH (25.0-34.0) pg MCHC (32.0-36.0) g/dL RDW Std Deviation (36.4-46.3) fL RDW Coeff of Jono (11.5-14.5) % Plt Count (130-400) K/uL MPV (9.4-12.4) fL Immature Gran % (Auto) % Neut % (Auto) % Lymph % (Auto) % [place] % (Auto) % Eos % (Auto) % Baso % (Auto) % Neut # (Auto) (1.40-6.50) K/uL Lymph # (Auto) (1.20-3.40) K/uL [place] # (Auto) (0.11-0.59) K/uL Eos # (Auto) (0.00-0.50) K/uL Baso # (Auto) (0.00-0.20) K/uL Immature Gran # (Auto) (0.01-0.20) K/uL Absolute Nucleated RBC (0.00-0.12) K/uL Nucleated RBC % (auto) % Toxic Granulation Dohle Bodies Polychromasia PT (9.0-12.0) Seconds INR (0.9-1.1) APTT (21-31) Seconds PTT Ratio POC pH 7.43 (7.35-7.45) POC pCO2 39 (35-46) mmHg POC pO2 66 L (80-95) mmHg POC HCO3 26 H (19-24) fidel/L POC Total CO2 27 (24-31) mmol/L POC Base Excess 2.0 H (-9-1.8) fidel/L POC ABG O2 Sat 93.0 (90-95) % VBG pH (7.36-7.41) VBG pCO2 (38-50) mmHg VBG pO2 mmHg VBG HCO3 mmol/L VBG O2 Saturation % VBG Base Excess mEq/L POC Sodium 133 L (135-144) mmol/L Sodium (136-145) mmol/L POC Potassium 3.7 (3.3-5.0) mmol/L Potassium (3.5-5.1) mmol/L Chloride (98-107) mmol/L Carbon Dioxide (21-32) mmol/L Anion Gap (3-11) BUN (6-23) mg/dl Creatinine (0.6-1.4) mg/dl Est Cr Clr Drug Dosing ml/min eGFR BUN/Creatinine Ratio (10-20) Glucose (70-99(Fasting)) mg/dl POC Glucose 107 H 193 H (70-99) mg/dl Estimat Average Glucose mg/dl Hemoglobin A1c (4.5-5.6) % Lactate (0.4-2.0) mmol/L Calcium (8.6-10.3) mg/dl Magnesium (1.7-2.4) mg/dl Iron (35-175) mcg/dl TIBC (250-450) mcg/dl Transferrin (200-360) mg/dl Transferrin % Sat (20-50) % Total Bilirubin (0.2-1.0) mg/dl Direct Bilirubin (0-0.2) mg/dl AST (13-39) U/L ALT (7-52) U/L Alkaline Phosphatase (34-104) U/L Lactate Dehydrogenase (86-244) U/L Troponin I High Sens (0-20) pg/ml B-Natriuretic Peptide (0-100) pg/ml Total Protein (6.0-8.3) gm/dl Albumin (3.4-5.0) gm/dl Globulin (2.5-4.0) gm/dl Albumin/Globulin Ratio (0.9-2) Triglycerides (0-150) mg/dl Cholesterol (0-200) mg/dl LDL Cholesterol, Calc mg/dl VLDL Cholesterol, Calc (0-30) mg/dl HDL Cholesterol mg/dl Cholesterol/HDL Ratio (0-5) Procalcitonin (0-0.5) ng/ml TSH (0.300-4.500) uIu/ml Urine Color Urine Appearance (Clear) Urine pH (4.5-7.5) Ur Specific [place] (1.000-1.030) Urine Protein (Negative) Urine Glucose (UA) (Negative) Urine Ketones (Negative) Urine Blood (Negative) Urine Nitrite (Negative) Urine Bilirubin (Negative) Urine Urobilinogen (Negative) Ur Leukocyte Esterase (Negative) Urine WBC (Auto) (0-5) /hpf Urine RBC (Auto) (0-2) /hpf U Hyaline Cast (Auto) (0-2) /lpf U Epithel Cells (Auto) (0-2) /hpf Urine Bacteria (Auto) (None Seen) Fluid Neutrophils % % Fluid Lymphocytes % % Fluid Meso/Macro/[place] % % Fluid Comment Pleural Fluid Source Pleural Color Pleural Appearance Pleural pH (7.3-7.4) Pleural WBC (Auto) /uL Pleural RBC (Auto) /uL Pleural Total Protein gm/dl Pleural LDH U/L Pleural Glucose mg/dl Pleural Amylase U/L Synovial Source Synovial Color Synovial Appearance Synovial WBC (Auto) (0-200) /ul Synovial RBC (Auto) /uL Synovial Polynuclear % % Synovial Mononuclear % % Nasal Screen MRSA (PCR) (Negative) Stool Occult Bld Scrn (Negative) Random Vancomycin (10-20) mcg/ml SARS-CoV-2 (PCR) (Negative) Influenza Type A (PCR) (Neg) Influenza Type B (PCR) (Neg) RSV (RT-PCR) (Neg) Blood Type Antibody Screen Crossmatch 04/26/24 04/26/24 04/26/24 Range/Units 05:07 05:00 04:47 WBC 9.92 (4.8-10.8) K/ul RBC 2.88 L (4.70-6.10) M/uL Hgb 9.3 L (14.0-18.0) g/dl POC Hgb 8.8 L (14.0-18.0) g/dl Hct 28.7 L (42.0-52.0) % POC Hct 26 L (42-52) % MCV 99.7 (80.0-100.0) fL MCH 32.3 (25.0-34.0) pg MCHC 32.4 (32.0-36.0) g/dL RDW Std Deviation 61.4 H (36.4-46.3) fL RDW Coeff of Jono 17.0 H (11.5-14.5) % Plt Count 133 (130-400) K/uL MPV 10.2 (9.4-12.4) fL Immature Gran % (Auto) % Neut % (Auto) % Lymph % (Auto) % [place] % (Auto) % Eos % (Auto) % Baso % (Auto) % Neut # (Auto) (1.40-6.50) K/uL Lymph # (Auto) (1.20-3.40) K/uL [place] # (Auto) (0.11-0.59) K/uL Eos # (Auto) (0.00-0.50) K/uL Baso # (Auto) (0.00-0.20) K/uL Immature Gran # (Auto) (0.01-0.20) K/uL Absolute Nucleated RBC 0.09 (0.00-0.12) K/uL Nucleated RBC % (auto) 0.9 % Toxic Granulation Dohle Bodies Polychromasia PT (9.0-12.0) Seconds INR (0.9-1.1) APTT (21-31) Seconds PTT Ratio POC pH 7.37 (7.35-7.45) POC pCO2 49 H (35-46) mmHg POC pO2 33 L (80-95) mmHg POC HCO3 29 H (19-24) fidel/L POC Total CO2 30 (24-31) mmol/L POC Base Excess 3.0 H (-9-1.8) fidel/L POC ABG O2 Sat 61.0 L (90-95) % VBG pH (7.36-7.41) VBG pCO2 (38-50) mmHg VBG pO2 mmHg VBG HCO3 mmol/L VBG O2 Saturation % VBG Base Excess mEq/L POC Sodium 134 L (135-144) mmol/L Sodium 135 L (136-145) mmol/L POC Potassium 3.9 (3.3-5.0) mmol/L Potassium 4.1 (3.5-5.1) mmol/L Chloride 98 (98-107) mmol/L Carbon Dioxide 25 (21-32) mmol/L Anion Gap 12 H (3-11) BUN 37 H (6-23) mg/dl Creatinine 2.33 H D (0.6-1.4) mg/dl Est Cr Clr Drug Dosing 28.3 ml/min eGFR 28.09 BUN/Creatinine Ratio 15.9 (10-20) Glucose 179 H (70-99(Fasting)) mg/dl POC Glucose (70-99) mg/dl Estimat Average Glucose mg/dl Hemoglobin A1c (4.5-5.6) % Lactate (0.4-2.0) mmol/L Calcium 8.6 (8.6-10.3) mg/dl Magnesium (1.7-2.4) mg/dl Iron (35-175) mcg/dl TIBC (250-450) mcg/dl Transferrin (200-360) mg/dl Transferrin % Sat (20-50) % Total Bilirubin (0.2-1.0) mg/dl Direct Bilirubin (0-0.2) mg/dl AST (13-39) U/L ALT (7-52) U/L Alkaline Phosphatase (34-104) U/L Lactate Dehydrogenase (86-244) U/L Troponin I High Sens (0-20) pg/ml B-Natriuretic Peptide (0-100) pg/ml Total Protein (6.0-8.3) gm/dl Albumin (3.4-5.0) gm/dl Globulin (2.5-4.0) gm/dl Albumin/Globulin Ratio (0.9-2) Triglycerides (0-150) mg/dl Cholesterol (0-200) mg/dl LDL Cholesterol, Calc mg/dl VLDL Cholesterol, Calc (0-30) mg/dl HDL Cholesterol mg/dl Cholesterol/HDL Ratio (0-5) Procalcitonin (0-0.5) ng/ml TSH (0.300-4.500) uIu/ml Urine Color Urine Appearance (Clear) Urine pH (4.5-7.5) Ur Specific [place] (1.000-1.030) Urine Protein (Negative) Urine Glucose (UA) (Negative) Urine Ketones (Negative) Urine Blood (Negative) Urine Nitrite (Negative) Urine Bilirubin (Negative) Urine Urobilinogen (Negative) Ur Leukocyte Esterase (Negative) Urine WBC (Auto) (0-5) /hpf Urine RBC (Auto) (0-2) /hpf U Hyaline Cast (Auto) (0-2) /lpf U Epithel Cells (Auto) (0-2) /hpf Urine Bacteria (Auto) (None Seen) Fluid Neutrophils % % Fluid Lymphocytes % % Fluid Meso/Macro/[place] % % Fluid Comment Pleural Fluid Source Pleural Color Pleural Appearance Pleural pH (7.3-7.4) Pleural WBC (Auto) /uL Pleural RBC (Auto) /uL Pleural Total Protein gm/dl Pleural LDH U/L Pleural Glucose mg/dl Pleural Amylase U/L Synovial Source Synovial Color Synovial Appearance Synovial WBC (Auto) (0-200) /ul Synovial RBC (Auto) /uL Synovial Polynuclear % % Synovial Mononuclear % % Nasal Screen MRSA (PCR) Negative (Negative) Stool Occult Bld Scrn (Negative) Random Vancomycin (10-20) mcg/ml SARS-CoV-2 (PCR) (Negative) Influenza Type A (PCR) (Neg) Influenza Type B (PCR) (Neg) RSV (RT-PCR) (Neg) Blood Type Antibody Screen Crossmatch 04/25/24 04/25/24 04/25/24 Range/Units 20:45 20:43 19:21 WBC (4.8-10.8) K/ul RBC (4.70-6.10) M/uL Hgb (14.0-18.0) g/dl POC Hgb (14.0-18.0) g/dl Hct (42.0-52.0) % POC Hct (42-52) % MCV (80.0-100.0) fL MCH (25.0-34.0) pg MCHC (32.0-36.0) g/dL RDW Std Deviation (36.4-46.3) fL RDW Coeff of Jono (11.5-14.5) % Plt Count (130-400) K/uL MPV (9.4-12.4) fL Immature Gran % (Auto) % Neut % (Auto) % Lymph % (Auto) % [place] % (Auto) % Eos % (Auto) % Baso % (Auto) % Neut # (Auto) (1.40-6.50) K/uL Lymph # (Auto) (1.20-3.40) K/uL [place] # (Auto) (0.11-0.59) K/uL Eos # (Auto) (0.00-0.50) K/uL Baso # (Auto) (0.00-0.20) K/uL Immature Gran # (Auto) (0.01-0.20) K/uL Absolute Nucleated RBC (0.00-0.12) K/uL Nucleated RBC % (auto) % Toxic Granulation Dohle Bodies Polychromasia PT (9.0-12.0) Seconds INR (0.9-1.1) APTT (21-31) Seconds PTT Ratio POC pH (7.35-7.45) POC pCO2 (35-46) mmHg POC pO2 (80-95) mmHg POC HCO3 (19-24) fidel/L POC Total CO2 (24-31) mmol/L POC Base Excess (-9-1.8) fidel/L POC ABG O2 Sat (90-95) % VBG pH (7.36-7.41) VBG pCO2 (38-50) mmHg VBG pO2 mmHg VBG HCO3 mmol/L VBG O2 Saturation % VBG Base Excess mEq/L POC Sodium (135-144) mmol/L Sodium (136-145) mmol/L POC Potassium (3.3-5.0) mmol/L Potassium (3.5-5.1) mmol/L Chloride (98-107) mmol/L Carbon Dioxide (21-32) mmol/L Anion Gap (3-11) BUN (6-23) mg/dl Creatinine (0.6-1.4) mg/dl Est Cr Clr Drug Dosing ml/min eGFR BUN/Creatinine Ratio (10-20) Glucose (70-99(Fasting)) mg/dl POC Glucose 56 L* 55 L* 75 (70-99) mg/dl Estimat Average Glucose mg/dl Hemoglobin A1c (4.5-5.6) % Lactate (0.4-2.0) mmol/L Calcium (8.6-10.3) mg/dl Magnesium (1.7-2.4) mg/dl Iron (35-175) mcg/dl TIBC (250-450) mcg/dl Transferrin (200-360) mg/dl Transferrin % Sat (20-50) % Total Bilirubin (0.2-1.0) mg/dl Direct Bilirubin (0-0.2) mg/dl AST (13-39) U/L ALT (7-52) U/L Alkaline Phosphatase (34-104) U/L Lactate Dehydrogenase (86-244) U/L Troponin I High Sens (0-20) pg/ml B-Natriuretic Peptide (0-100) pg/ml Total Protein (6.0-8.3) gm/dl Albumin (3.4-5.0) gm/dl Globulin (2.5-4.0) gm/dl Albumin/Globulin Ratio (0.9-2) Triglycerides (0-150) mg/dl Cholesterol (0-200) mg/dl LDL Cholesterol, Calc mg/dl VLDL Cholesterol, Calc (0-30) mg/dl HDL Cholesterol mg/dl Cholesterol/HDL Ratio (0-5) Procalcitonin (0-0.5) ng/ml TSH (0.300-4.500) uIu/ml Urine Color Urine Appearance (Clear) Urine pH (4.5-7.5) Ur Specific [place] (1.000-1.030) Urine Protein (Negative) Urine Glucose (UA) (Negative) Urine Ketones (Negative) Urine Blood (Negative) Urine Nitrite (Negative) Urine Bilirubin (Negative) Urine Urobilinogen (Negative) Ur Leukocyte Esterase (Negative) Urine WBC (Auto) (0-5) /hpf Urine RBC (Auto) (0-2) /hpf U Hyaline Cast (Auto) (0-2) /lpf U Epithel Cells (Auto) (0-2) /hpf Urine Bacteria (Auto) (None Seen) Fluid Neutrophils % % Fluid Lymphocytes % % Fluid Meso/Macro/[place] % % Fluid Comment Pleural Fluid Source Pleural Color Pleural Appearance Pleural pH (7.3-7.4) Pleural WBC (Auto) /uL Pleural RBC (Auto) /uL Pleural Total Protein gm/dl Pleural LDH U/L Pleural Glucose mg/dl Pleural Amylase U/L Synovial Source Synovial Color Synovial Appearance Synovial WBC (Auto) (0-200) /ul Synovial RBC (Auto) /uL Synovial Polynuclear % % Synovial Mononuclear % % Nasal Screen MRSA (PCR) (Negative) Stool Occult Bld Scrn (Negative) Random Vancomycin (10-20) mcg/ml SARS-CoV-2 (PCR) (Negative) Influenza Type A (PCR) (Neg) Influenza Type B (PCR) (Neg) RSV (RT-PCR) (Neg) Blood Type Antibody Screen Crossmatch 04/25/24 04/25/24 04/25/24 Range/Units 16:32 14:42 11:32 WBC (4.8-10.8) K/ul RBC (4.70-6.10) M/uL Hgb (14.0-18.0) g/dl POC Hgb (14.0-18.0) g/dl Hct (42.0-52.0) % POC Hct (42-52) % MCV (80.0-100.0) fL MCH (25.0-34.0) pg MCHC (32.0-36.0) g/dL RDW Std Deviation (36.4-46.3) fL RDW Coeff of Jono (11.5-14.5) % Plt Count (130-400) K/uL MPV (9.4-12.4) fL Immature Gran % (Auto) % Neut % (Auto) % Lymph % (Auto) % [place] % (Auto) % Eos % (Auto) % Baso % (Auto) % Neut # (Auto) (1.40-6.50) K/uL Lymph # (Auto) (1.20-3.40) K/uL [place] # (Auto) (0.11-0.59) K/uL Eos # (Auto) (0.00-0.50) K/uL Baso # (Auto) (0.00-0.20) K/uL Immature Gran # (Auto) (0.01-0.20) K/uL Absolute Nucleated RBC (0.00-0.12) K/uL Nucleated RBC % (auto) % Toxic Granulation Dohle Bodies Polychromasia PT (9.0-12.0) Seconds INR (0.9-1.1) APTT (21-31) Seconds PTT Ratio POC pH (7.35-7.45) POC pCO2 (35-46) mmHg POC pO2 (80-95) mmHg POC HCO3 (19-24) fidel/L POC Total CO2 (24-31) mmol/L POC Base Excess (-9-1.8) fidel/L POC ABG O2 Sat (90-95) % VBG pH (7.36-7.41) VBG pCO2 (38-50) mmHg VBG pO2 mmHg VBG HCO3 mmol/L VBG O2 Saturation % VBG Base Excess mEq/L POC Sodium (135-144) mmol/L Sodium (136-145) mmol/L POC Potassium (3.3-5.0) mmol/L Potassium (3.5-5.1) mmol/L Chloride (98-107) mmol/L Carbon Dioxide (21-32) mmol/L Anion Gap (3-11) BUN (6-23) mg/dl Creatinine (0.6-1.4) mg/dl Est Cr Clr Drug Dosing ml/min eGFR BUN/Creatinine Ratio (10-20) Glucose (70-99(Fasting)) mg/dl POC Glucose 217 H 92 (70-99) mg/dl Estimat Average Glucose mg/dl Hemoglobin A1c (4.5-5.6) % Lactate (0.4-2.0) mmol/L Calcium (8.6-10.3) mg/dl Magnesium 1.5 L (1.7-2.4) mg/dl Iron (35-175) mcg/dl TIBC (250-450) mcg/dl Transferrin (200-360) mg/dl Transferrin % Sat (20-50) % Total Bilirubin (0.2-1.0) mg/dl Direct Bilirubin (0-0.2) mg/dl AST (13-39) U/L ALT (7-52) U/L Alkaline Phosphatase (34-104) U/L Lactate Dehydrogenase (86-244) U/L Troponin I High Sens (0-20) pg/ml B-Natriuretic Peptide (0-100) pg/ml Total Protein (6.0-8.3) gm/dl Albumin (3.4-5.0) gm/dl Globulin (2.5-4.0) gm/dl Albumin/Globulin Ratio (0.9-2) Triglycerides (0-150) mg/dl Cholesterol (0-200) mg/dl LDL Cholesterol, Calc mg/dl VLDL Cholesterol, Calc (0-30) mg/dl HDL Cholesterol mg/dl Cholesterol/HDL Ratio (0-5) Procalcitonin (0-0.5) ng/ml TSH (0.300-4.500) uIu/ml Urine Color Urine Appearance (Clear) Urine pH (4.5-7.5) Ur Specific [place] (1.000-1.030) Urine Protein (Negative) Urine Glucose (UA) (Negative) Urine Ketones (Negative) Urine Blood (Negative) Urine Nitrite (Negative) Urine Bilirubin (Negative) Urine Urobilinogen (Negative) Ur Leukocyte Esterase (Negative) Urine WBC (Auto) (0-5) /hpf Urine RBC (Auto) (0-2) /hpf U Hyaline Cast (Auto) (0-2) /lpf U Epithel Cells (Auto) (0-2) /hpf Urine Bacteria (Auto) (None Seen) Fluid Neutrophils % % Fluid Lymphocytes % % Fluid Meso/Macro/[place] % % Fluid Comment Pleural Fluid Source Pleural Color Pleural Appearance Pleural pH (7.3-7.4) Pleural WBC (Auto) /uL Pleural RBC (Auto) /uL Pleural Total Protein gm/dl Pleural LDH U/L Pleural Glucose mg/dl Pleural Amylase U/L Synovial Source Synovial Color Synovial Appearance Synovial WBC (Auto) (0-200) /ul Synovial RBC (Auto) /uL Synovial Polynuclear % % Synovial Mononuclear % % Nasal Screen MRSA (PCR) (Negative) Stool Occult Bld Scrn (Negative) Random Vancomycin (10-20) mcg/ml SARS-CoV-2 (PCR) (Negative) Influenza Type A (PCR) (Neg) Influenza Type B (PCR) (Neg) RSV (RT-PCR) (Neg) Blood Type Antibody Screen Crossmatch 03/01/25 03/01/25 02/28/25 Range/Units 07:51 06:01 20:40 WBC 6.31 (4.8-10.8) K/ul RBC 3.03 L (4.70-6.10) M/uL Hgb 9.6 L (14.0-18.0) g/dl POC Hgb (14.0-18.0) g/dl Hct 29.4 L (42.0-52.0) % POC Hct (42-52) % MCV 97.0 (80.0-100.0) fL MCH 31.7 (25.0-34.0) pg MCHC 32.7 (32.0-36.0) g/dL RDW Std Deviation 60.1 H (36.4-46.3) fL RDW Coeff of Jono 17.2 H (11.5-14.5) % Plt Count 143 (130-400) K/uL MPV 9.9 (9.4-12.4) fL Immature Gran % (Auto) % Neut % (Auto) % Lymph % (Auto) % [place] % (Auto) % Eos % (Auto) % Baso % (Auto) % Neut # (Auto) (1.40-6.50) K/uL Lymph # (Auto) (1.20-3.40) K/uL [place] # (Auto) (0.11-0.59) K/uL Eos # (Auto) (0.00-0.50) K/uL Baso # (Auto) (0.00-0.20) K/uL Immature Gran # (Auto) (0.01-0.20) K/uL Absolute Nucleated RBC 0.02 (0.00-0.12) K/uL Nucleated RBC % (auto) 0.3 % Toxic Granulation Dohle Bodies Polychromasia PT (9.0-12.0) Seconds INR (0.9-1.1) APTT (21-31) Seconds PTT Ratio POC pH (7.35-7.45) POC pCO2 (35-46) mmHg POC pO2 (80-95) mmHg POC HCO3 (19-24) fidel/L POC Total CO2 (24-31) mmol/L POC Base Excess (-9-1.8) fidel/L POC ABG O2 Sat (90-95) % VBG pH (7.36-7.41) VBG pCO2 (38-50) mmHg VBG pO2 mmHg VBG HCO3 mmol/L VBG O2 Saturation % VBG Base Excess mEq/L POC Sodium (135-144) mmol/L Sodium 137 (136-145) mmol/L POC Potassium (3.3-5.0) mmol/L Potassium 4.4 (3.5-5.1) mmol/L Chloride 100 (98-107) mmol/L Carbon Dioxide 28 (21-32) mmol/L Anion Gap 9 (3-11) BUN 28 H (6-23) mg/dl Creatinine 1.48 H (0.6-1.4) mg/dl Est Cr Clr Drug Dosing 44.5 ml/min eGFR 48.43 BUN/Creatinine Ratio 18.9 (10-20) Glucose 158 H (70-99(Fasting)) mg/dl POC Glucose 173 H 129 H (70-99) mg/dl Estimat Average Glucose mg/dl Hemoglobin A1c (4.5-5.6) % Lactate (0.4-2.0) mmol/L Calcium 8.1 L (8.6-10.3) mg/dl Magnesium Cancelled (1.7-2.4) mg/dl Iron (35-175) mcg/dl TIBC (250-450) mcg/dl Transferrin (200-360) mg/dl Transferrin % Sat (20-50) % Total Bilirubin (0.2-1.0) mg/dl Direct Bilirubin (0-0.2) mg/dl AST (13-39) U/L ALT (7-52) U/L Alkaline Phosphatase (34-104) U/L Lactate Dehydrogenase (86-244) U/L Troponin I High Sens (0-20) pg/ml B-Natriuretic Peptide (0-100) pg/ml Total Protein (6.0-8.3) gm/dl Albumin (3.4-5.0) gm/dl Globulin (2.5-4.0) gm/dl Albumin/Globulin Ratio (0.9-2) Triglycerides (0-150) mg/dl Cholesterol (0-200) mg/dl LDL Cholesterol, Calc mg/dl VLDL Cholesterol, Calc (0-30) mg/dl HDL Cholesterol mg/dl Cholesterol/HDL Ratio (0-5) Procalcitonin (0-0.5) ng/ml TSH (0.300-4.500) uIu/ml Urine Color Urine Appearance (Clear) Urine pH (4.5-7.5) Ur Specific [place] (1.000-1.030) Urine Protein (Negative) Urine Glucose (UA) (Negative) Urine Ketones (Negative) Urine Blood (Negative) Urine Nitrite (Negative) Urine Bilirubin (Negative) Urine Urobilinogen (Negative) Ur Leukocyte Esterase (Negative) Urine WBC (Auto) (0-5) /hpf Urine RBC (Auto) (0-2) /hpf U Hyaline Cast (Auto) (0-2) /lpf U Epithel Cells (Auto) (0-2) /hpf Urine Bacteria (Auto) (None Seen) Fluid Neutrophils % % Fluid Lymphocytes % % Fluid Meso/Macro/[place] % % Fluid Comment Pleural Fluid Source Pleural Color Pleural Appearance Pleural pH (7.3-7.4) Pleural WBC (Auto) /uL Pleural RBC (Auto) /uL Pleural Total Protein gm/dl Pleural LDH U/L Pleural Glucose mg/dl Pleural Amylase U/L Synovial Source Synovial Color Synovial Appearance Synovial WBC (Auto) (0-200) /ul Synovial RBC (Auto) /uL Synovial Polynuclear % % Synovial Mononuclear % % Nasal Screen MRSA (PCR) (Negative) Stool Occult Bld Scrn (Negative) Random Vancomycin (10-20) mcg/ml SARS-CoV-2 (PCR) (Negative) Influenza Type A (PCR) (Neg) Influenza Type B (PCR) (Neg) RSV (RT-PCR) (Neg) Blood Type Antibody Screen Crossmatch 04/24/24 04/24/24 04/24/24 Range/Units 18:44 16:00 11:18 WBC (4.8-10.8) K/ul RBC (4.70-6.10) M/uL Hgb (14.0-18.0) g/dl POC Hgb (14.0-18.0) g/dl Hct (42.0-52.0) % POC Hct (42-52) % MCV (80.0-100.0) fL MCH (25.0-34.0) pg MCHC (32.0-36.0) g/dL RDW Std Deviation (36.4-46.3) fL RDW Coeff of Jono (11.5-14.5) % Plt Count (130-400) K/uL MPV (9.4-12.4) fL Immature Gran % (Auto) % Neut % (Auto) % Lymph % (Auto) % [place] % (Auto) % Eos % (Auto) % Baso % (Auto) % Neut # (Auto) (1.40-6.50) K/uL Lymph # (Auto) (1.20-3.40) K/uL [place] # (Auto) (0.11-0.59) K/uL Eos # (Auto) (0.00-0.50) K/uL Baso # (Auto) (0.00-0.20) K/uL Immature Gran # (Auto) (0.01-0.20) K/uL Absolute Nucleated RBC (0.00-0.12) K/uL Nucleated RBC % (auto) % Toxic Granulation Dohle Bodies Polychromasia PT (9.0-12.0) Seconds INR (0.9-1.1) APTT (21-31) Seconds PTT Ratio POC pH (7.35-7.45) POC pCO2 (35-46) mmHg POC pO2 (80-95) mmHg POC HCO3 (19-24) fidel/L POC Total CO2 (24-31) mmol/L POC Base Excess (-9-1.8) fidel/L POC ABG O2 Sat (90-95) % VBG pH (7.36-7.41) VBG pCO2 (38-50) mmHg VBG pO2 mmHg VBG HCO3 mmol/L VBG O2 Saturation % VBG Base Excess mEq/L POC Sodium (135-144) mmol/L Sodium (136-145) mmol/L POC Potassium (3.3-5.0) mmol/L Potassium (3.5-5.1) mmol/L Chloride (98-107) mmol/L Carbon Dioxide (21-32) mmol/L Anion Gap (3-11) BUN (6-23) mg/dl Creatinine (0.6-1.4) mg/dl Est Cr Clr Drug Dosing ml/min eGFR BUN/Creatinine Ratio (10-20) Glucose (70-99(Fasting)) mg/dl POC Glucose 119 H 124 H 126 H (70-99) mg/dl Estimat Average Glucose mg/dl Hemoglobin A1c (4.5-5.6) % Lactate (0.4-2.0) mmol/L Calcium (8.6-10.3) mg/dl Magnesium (1.7-2.4) mg/dl Iron (35-175) mcg/dl TIBC (250-450) mcg/dl Transferrin (200-360) mg/dl Transferrin % Sat (20-50) % Total Bilirubin (0.2-1.0) mg/dl Direct Bilirubin (0-0.2) mg/dl AST (13-39) U/L ALT (7-52) U/L Alkaline Phosphatase (34-104) U/L Lactate Dehydrogenase (86-244) U/L Troponin I High Sens (0-20) pg/ml B-Natriuretic Peptide (0-100) pg/ml Total Protein (6.0-8.3) gm/dl Albumin (3.4-5.0) gm/dl Globulin (2.5-4.0) gm/dl Albumin/Globulin Ratio (0.9-2) Triglycerides (0-150) mg/dl Cholesterol (0-200) mg/dl LDL Cholesterol, Calc mg/dl VLDL Cholesterol, Calc (0-30) mg/dl HDL Cholesterol mg/dl Cholesterol/HDL Ratio (0-5) Procalcitonin (0-0.5) ng/ml TSH (0.300-4.500) uIu/ml Urine Color Urine Appearance (Clear) Urine pH (4.5-7.5) Ur Specific [place] (1.000-1.030) Urine Protein (Negative) Urine Glucose (UA) (Negative) Urine Ketones (Negative) Urine Blood (Negative) Urine Nitrite (Negative) Urine Bilirubin (Negative) Urine Urobilinogen (Negative) Ur Leukocyte Esterase (Negative) Urine WBC (Auto) (0-5) /hpf Urine RBC (Auto) (0-2) /hpf U Hyaline Cast (Auto) (0-2) /lpf U Epithel Cells (Auto) (0-2) /hpf Urine Bacteria (Auto) (None Seen) Fluid Neutrophils % % Fluid Lymphocytes % % Fluid Meso/Macro/[place] % % Fluid Comment Pleural Fluid Source Pleural Color Pleural Appearance Pleural pH (7.3-7.4) Pleural WBC (Auto) /uL Pleural RBC (Auto) /uL Pleural Total Protein gm/dl Pleural LDH U/L Pleural Glucose mg/dl Pleural Amylase U/L Synovial Source Synovial Color Synovial Appearance Synovial WBC (Auto) (0-200) /ul Synovial RBC (Auto) /uL Synovial Polynuclear % % Synovial Mononuclear % % Nasal Screen MRSA (PCR) (Negative) Stool Occult Bld Scrn (Negative) Random Vancomycin (10-20) mcg/ml SARS-CoV-2 (PCR) (Negative) Influenza Type A (PCR) (Neg) Influenza Type B (PCR) (Neg) RSV (RT-PCR) (Neg) Blood Type Antibody Screen Crossmatch 04/24/24 04/24/24 04/24/24 Range/Units 06:26 03:24 00:10 WBC (4.8-10.8) K/ul RBC (4.70-6.10) M/uL Hgb (14.0-18.0) g/dl POC Hgb (14.0-18.0) g/dl Hct (42.0-52.0) % POC Hct (42-52) % MCV (80.0-100.0) fL MCH (25.0-34.0) pg MCHC (32.0-36.0) g/dL RDW Std Deviation (36.4-46.3) fL RDW Coeff of Jono (11.5-14.5) % Plt Count (130-400) K/uL MPV (9.4-12.4) fL Immature Gran % (Auto) % Neut % (Auto) % Lymph % (Auto) % [place] % (Auto) % Eos % (Auto) % Baso % (Auto) % Neut # (Auto) (1.40-6.50) K/uL Lymph # (Auto) (1.20-3.40) K/uL [place] # (Auto) (0.11-0.59) K/uL Eos # (Auto) (0.00-0.50) K/uL Baso # (Auto) (0.00-0.20) K/uL Immature Gran # (Auto) (0.01-0.20) K/uL Absolute Nucleated RBC (0.00-0.12) K/uL Nucleated RBC % (auto) % Toxic Granulation Dohle Bodies Polychromasia PT (9.0-12.0) Seconds INR (0.9-1.1) APTT (21-31) Seconds PTT Ratio POC pH (7.35-7.45) POC pCO2 (35-46) mmHg POC pO2 (80-95) mmHg POC HCO3 (19-24) fidel/L POC Total CO2 (24-31) mmol/L POC Base Excess (-9-1.8) fidel/L POC ABG O2 Sat (90-95) % VBG pH (7.36-7.41) VBG pCO2 (38-50) mmHg VBG pO2 mmHg VBG HCO3 mmol/L VBG O2 Saturation % VBG Base Excess mEq/L POC Sodium (135-144) mmol/L Sodium (136-145) mmol/L POC Potassium (3.3-5.0) mmol/L Potassium (3.5-5.1) mmol/L Chloride (98-107) mmol/L Carbon Dioxide (21-32) mmol/L Anion Gap (3-11) BUN (6-23) mg/dl Creatinine 1.29 (0.6-1.4) mg/dl Est Cr Clr Drug Dosing 51.1 ml/min eGFR 57.11 BUN/Creatinine Ratio (10-20) Glucose (70-99(Fasting)) mg/dl POC Glucose 117 H 127 H (70-99) mg/dl Estimat Average Glucose mg/dl Hemoglobin A1c (4.5-5.6) % Lactate (0.4-2.0) mmol/L Calcium (8.6-10.3) mg/dl Magnesium (1.7-2.4) mg/dl Iron (35-175) mcg/dl TIBC (250-450) mcg/dl Transferrin (200-360) mg/dl Transferrin % Sat (20-50) % Total Bilirubin (0.2-1.0) mg/dl Direct Bilirubin (0-0.2) mg/dl AST (13-39) U/L ALT (7-52) U/L Alkaline Phosphatase (34-104) U/L Lactate Dehydrogenase (86-244) U/L Troponin I High Sens (0-20) pg/ml B-Natriuretic Peptide 1076 H (0-100) pg/ml Total Protein (6.0-8.3) gm/dl Albumin (3.4-5.0) gm/dl Globulin (2.5-4.0) gm/dl Albumin/Globulin Ratio (0.9-2) Triglycerides (0-150) mg/dl Cholesterol (0-200) mg/dl LDL Cholesterol, Calc mg/dl VLDL Cholesterol, Calc (0-30) mg/dl HDL Cholesterol mg/dl Cholesterol/HDL Ratio (0-5) Procalcitonin (0-0.5) ng/ml TSH (0.300-4.500) uIu/ml Urine Color Urine Appearance (Clear) Urine pH (4.5-7.5) Ur Specific [place] (1.000-1.030) Urine Protein (Negative) Urine Glucose (UA) (Negative) Urine Ketones (Negative) Urine Blood (Negative) Urine Nitrite (Negative) Urine Bilirubin (Negative) Urine Urobilinogen (Negative) Ur Leukocyte Esterase (Negative) Urine WBC (Auto) (0-5) /hpf Urine RBC (Auto) (0-2) /hpf U Hyaline Cast (Auto) (0-2) /lpf U Epithel Cells (Auto) (0-2) /hpf Urine Bacteria (Auto) (None Seen) Fluid Neutrophils % % Fluid Lymphocytes % % Fluid [place]/Macro/[place] % % Fluid Comment Pleural Fluid Source Pleural Color Pleural Appearance Pleural pH (7.3-7.4) Pleural WBC (Auto) /uL Pleural RBC (Auto) /uL Pleural Total Protein gm/dl Pleural LDH U/L Pleural Glucose mg/dl Pleural Amylase U/L Synovial Source Synovial Color Synovial Appearance Synovial WBC (Auto) (0-200) /ul Synovial RBC (Auto) /uL Synovial Polynuclear % % Synovial Mononuclear % % Nasal Screen MRSA (PCR) (Negative) Stool Occult Bld Scrn (Negative) Random Vancomycin 14.1 (10-20) mcg/ml SARS-CoV-2 (PCR) (Negative) Influenza Type A (PCR) (Neg) Influenza Type B (PCR) (Neg) RSV (RT-PCR) (Neg) Blood Type Antibody Screen Crossmatch 04/23/24 04/23/24 04/23/24 Range/Units 18:28 17:40 16:23 WBC (4.8-10.8) K/ul RBC (4.70-6.10) M/uL Hgb (14.0-18.0) g/dl POC Hgb (14.0-18.0) g/dl Hct (42.0-52.0) % POC Hct (42-52) % MCV (80.0-100.0) fL MCH (25.0-34.0) pg MCHC (32.0-36.0) g/dL RDW Std Deviation (36.4-46.3) fL RDW Coeff of Jono (11.5-14.5) % Plt Count (130-400) K/uL MPV (9.4-12.4) fL Immature Gran % (Auto) % Neut % (Auto) % Lymph % (Auto) % [place] % (Auto) % Eos % (Auto) % Baso % (Auto) % Neut # (Auto) (1.40-6.50) K/uL Lymph # (Auto) (1.20-3.40) K/uL [place] # (Auto) (0.11-0.59) K/uL Eos # (Auto) (0.00-0.50) K/uL Baso # (Auto) (0.00-0.20) K/uL Immature Gran # (Auto) (0.01-0.20) K/uL Absolute Nucleated RBC (0.00-0.12) K/uL Nucleated RBC % (auto) % Toxic Granulation Dohle Bodies Polychromasia PT (9.0-12.0) Seconds INR (0.9-1.1) APTT (21-31) Seconds PTT Ratio POC pH (7.35-7.45) POC pCO2 (35-46) mmHg POC pO2 (80-95) mmHg POC HCO3 (19-24) fidel/L POC Total CO2 (24-31) mmol/L POC Base Excess (-9-1.8) fidel/L POC ABG O2 Sat (90-95) % VBG pH (7.36-7.41) VBG pCO2 (38-50) mmHg VBG pO2 mmHg VBG HCO3 mmol/L VBG O2 Saturation % VBG Base Excess mEq/L POC Sodium (135-144) mmol/L Sodium (136-145) mmol/L POC Potassium (3.3-5.0) mmol/L Potassium (3.5-5.1) mmol/L Chloride (98-107) mmol/L Carbon Dioxide (21-32) mmol/L Anion Gap (3-11) BUN (6-23) mg/dl Creatinine (0.6-1.4) mg/dl Est Cr Clr Drug Dosing ml/min eGFR BUN/Creatinine Ratio (10-20) Glucose (70-99(Fasting)) mg/dl POC Glucose 171 H (70-99) mg/dl Estimat Average Glucose mg/dl Hemoglobin A1c (4.5-5.6) % Lactate (0.4-2.0) mmol/L Calcium (8.6-10.3) mg/dl Magnesium (1.7-2.4) mg/dl Iron (35-175) mcg/dl TIBC (250-450) mcg/dl Transferrin (200-360) mg/dl Transferrin % Sat (20-50) % Total Bilirubin 0.6 (0.2-1.0) mg/dl Direct Bilirubin (0-0.2) mg/dl AST (13-39) U/L ALT (7-52) U/L Alkaline Phosphatase (34-104) U/L Lactate Dehydrogenase 189 (86-244) U/L Troponin I High Sens (0-20) pg/ml B-Natriuretic Peptide (0-100) pg/ml Total Protein 5.0 L (6.0-8.3) gm/dl Albumin 2.4 L (3.4-5.0) gm/dl Globulin (2.5-4.0) gm/dl Albumin/Globulin Ratio (0.9-2) Triglycerides (0-150) mg/dl Cholesterol (0-200) mg/dl LDL Cholesterol, Calc mg/dl VLDL Cholesterol, Calc (0-30) mg/dl HDL Cholesterol mg/dl Cholesterol/HDL Ratio (0-5) Procalcitonin (0-0.5) ng/ml TSH (0.300-4.500) uIu/ml Urine Color Urine Appearance (Clear) Urine pH (4.5-7.5) Ur Specific [place] (1.000-1.030) Urine Protein (Negative) Urine Glucose (UA) (Negative) Urine Ketones (Negative) Urine Blood (Negative) Urine Nitrite (Negative) Urine Bilirubin (Negative) Urine Urobilinogen (Negative) Ur Leukocyte Esterase (Negative) Urine WBC (Auto) (0-5) /hpf Urine RBC (Auto) (0-2) /hpf U Hyaline Cast (Auto) (0-2) /lpf U Epithel Cells (Auto) (0-2) /hpf Urine Bacteria (Auto) (None Seen) Fluid Neutrophils % 82 % Fluid Lymphocytes % 9 % Fluid Meso/Macro/[place] % 9 % Fluid Comment Pleural Fluid Source Left Lung Pleural Color Yellow Pleural Appearance Hazy Pleural pH 7.27 L (7.3-7.4) Pleural WBC (Auto) 717 /uL Pleural RBC (Auto) 8000 /uL Pleural Total Protein < 3.0 gm/dl Pleural LDH 2548 U/L Pleural Glucose 99 mg/dl Pleural Amylase 15 U/L Synovial Source Synovial Color Synovial Appearance Synovial WBC (Auto) (0-200) /ul Synovial RBC (Auto) /uL Synovial Polynuclear % % Synovial Mononuclear % % Nasal Screen MRSA (PCR) (Negative) Stool Occult Bld Scrn (Negative) Random Vancomycin (10-20) mcg/ml SARS-CoV-2 (PCR) (Negative) Influenza Type A (PCR) (Neg) Influenza Type B (PCR) (Neg) RSV (RT-PCR) (Neg) Blood Type Antibody Screen Crossmatch 04/23/24 04/23/24 04/23/24 Range/Units 12:38 07:55 06:27 WBC 5.22 (4.8-10.8) K/ul RBC 2.83 L (4.70-6.10) M/uL Hgb 9.2 L (14.0-18.0) g/dl POC Hgb (14.0-18.0) g/dl Hct 27.6 L (42.0-52.0) % POC Hct (42-52) % MCV 97.5 (80.0-100.0) fL MCH 32.5 (25.0-34.0) pg MCHC 33.3 (32.0-36.0) g/dL RDW Std Deviation 65.5 H (36.4-46.3) fL RDW Coeff of Jono 19.2 H (11.5-14.5) % Plt Count 181 (130-400) K/uL MPV 9.9 (9.4-12.4) fL Immature Gran % (Auto) 0.4 % Neut % (Auto) 60.7 % Lymph % (Auto) 29.7 % [place] % (Auto) 8.4 % Eos % (Auto) 0.8 % Baso % (Auto) 0.0 % Neut # (Auto) 3.17 (1.40-6.50) K/uL Lymph # (Auto) 1.55 (1.20-3.40) K/uL [place] # (Auto) 0.44 (0.11-0.59) K/uL Eos # (Auto) 0.04 (0.00-0.50) K/uL Baso # (Auto) 0.00 (0.00-0.20) K/uL Immature Gran # (Auto) 0.02 (0.01-0.20) K/uL Absolute Nucleated RBC (0.00-0.12) K/uL Nucleated RBC % (auto) % Toxic Granulation Dohle Bodies Polychromasia PT (9.0-12.0) Seconds INR (0.9-1.1) APTT (21-31) Seconds PTT Ratio POC pH (7.35-7.45) POC pCO2 (35-46) mmHg POC pO2 (80-95) mmHg POC HCO3 (19-24) fidel/L POC Total CO2 (24-31) mmol/L POC Base Excess (-9-1.8) fidel/L POC ABG O2 Sat (90-95) % VBG pH (7.36-7.41) VBG pCO2 (38-50) mmHg VBG pO2 mmHg VBG HCO3 mmol/L VBG O2 Saturation % VBG Base Excess mEq/L POC Sodium (135-144) mmol/L Sodium 138 (136-145) mmol/L POC Potassium (3.3-5.0) mmol/L Potassium 4.5 (3.5-5.1) mmol/L Chloride 108 H (98-107) mmol/L Carbon Dioxide 27 (21-32) mmol/L Anion Gap 3 (3-11) BUN 28 H (6-23) mg/dl Creatinine 1.32 (0.6-1.4) mg/dl Est Cr Clr Drug Dosing 49.9 ml/min eGFR 55.55 BUN/Creatinine Ratio 21.2 H (10-20) Glucose 136 H (70-99(Fasting)) mg/dl POC Glucose 205 H 163 H (70-99) mg/dl Estimat Average Glucose 163 mg/dl Hemoglobin A1c 7.3 H (4.5-5.6) % Lactate (0.4-2.0) mmol/L Calcium 8.4 L (8.6-10.3) mg/dl Magnesium 1.8 (1.7-2.4) mg/dl Iron (35-175) mcg/dl TIBC (250-450) mcg/dl Transferrin (200-360) mg/dl Transferrin % Sat (20-50) % Total Bilirubin 0.6 (0.2-1.0) mg/dl Direct Bilirubin (0-0.2) mg/dl AST 14 (13-39) U/L ALT 15 (7-52) U/L Alkaline Phosphatase 58 (34-104) U/L Lactate Dehydrogenase (86-244) U/L Troponin I High Sens (0-20) pg/ml B-Natriuretic Peptide (0-100) pg/ml Total Protein 5.2 L (6.0-8.3) gm/dl Albumin 2.3 L (3.4-5.0) gm/dl Globulin 2.9 (2.5-4.0) gm/dl Albumin/Globulin Ratio 0.8 L (0.9-2) Triglycerides 69 (0-150) mg/dl Cholesterol 75 (0-200) mg/dl LDL Cholesterol, Calc 20 mg/dl VLDL Cholesterol, Calc 14 (0-30) mg/dl HDL Cholesterol 41 mg/dl Cholesterol/HDL Ratio 1.8 (0-5) Procalcitonin (0-0.5) ng/ml TSH 1.890 (0.300-4.500) uIu/ml Urine Color Urine Appearance (Clear) Urine pH (4.5-7.5) Ur Specific [place] (1.000-1.030) Urine Protein (Negative) Urine Glucose (UA) (Negative) Urine Ketones (Negative) Urine Blood (Negative) Urine Nitrite (Negative) Urine Bilirubin (Negative) Urine Urobilinogen (Negative) Ur Leukocyte Esterase (Negative) Urine WBC (Auto) (0-5) /hpf Urine RBC (Auto) (0-2) /hpf U Hyaline Cast (Auto) (0-2) /lpf U Epithel Cells (Auto) (0-2) /hpf Urine Bacteria (Auto) (None Seen) Fluid Neutrophils % % Fluid Lymphocytes % % Fluid Meso/Macro/[place] % % Fluid Comment Pleural Fluid Source Pleural Color Pleural Appearance Pleural pH (7.3-7.4) Pleural WBC (Auto) /uL Pleural RBC (Auto) /uL Pleural Total Protein gm/dl Pleural LDH U/L Pleural Glucose mg/dl Pleural Amylase U/L Synovial Source Synovial Color Synovial Appearance Synovial WBC (Auto) (0-200) /ul Synovial RBC (Auto) /uL Synovial Polynuclear % % Synovial Mononuclear % % Nasal Screen MRSA (PCR) (Negative) Stool Occult Bld Scrn (Negative) Random Vancomycin (10-20) mcg/ml SARS-CoV-2 (PCR) (Negative) Influenza Type A (PCR) (Neg) Influenza Type B (PCR) (Neg) RSV (RT-PCR) (Neg) Blood Type Antibody Screen Crossmatch 04/23/24 04/23/24 04/22/24 Range/Units 05:25 02:03 23:41 WBC (4.8-10.8) K/ul RBC (4.70-6.10) M/uL Hgb (14.0-18.0) g/dl POC Hgb (14.0-18.0) g/dl Hct (42.0-52.0) % POC Hct (42-52) % MCV (80.0-100.0) fL MCH (25.0-34.0) pg MCHC (32.0-36.0) g/dL RDW Std Deviation (36.4-46.3) fL RDW Coeff of Jono (11.5-14.5) % Plt Count (130-400) K/uL MPV (9.4-12.4) fL Immature Gran % (Auto) % Neut % (Auto) % Lymph % (Auto) % [place] % (Auto) % Eos % (Auto) % Baso % (Auto) % Neut # (Auto) (1.40-6.50) K/uL Lymph # (Auto) (1.20-3.40) K/uL [place] # (Auto) (0.11-0.59) K/uL Eos # (Auto) (0.00-0.50) K/uL Baso # (Auto) (0.00-0.20) K/uL Immature Gran # (Auto) (0.01-0.20) K/uL Absolute Nucleated RBC (0.00-0.12) K/uL Nucleated RBC % (auto) % Toxic Granulation Dohle Bodies Polychromasia PT (9.0-12.0) Seconds INR (0.9-1.1) APTT (21-31) Seconds PTT Ratio POC pH (7.35-7.45) POC pCO2 (35-46) mmHg POC pO2 (80-95) mmHg POC HCO3 (19-24) fidel/L POC Total CO2 (24-31) mmol/L POC Base Excess (-9-1.8) fidel/L POC ABG O2 Sat (90-95) % VBG pH (7.36-7.41) VBG pCO2 (38-50) mmHg VBG pO2 mmHg VBG HCO3 mmol/L VBG O2 Saturation % VBG Base Excess mEq/L POC Sodium (135-144) mmol/L Sodium (136-145) mmol/L POC Potassium (3.3-5.0) mmol/L Potassium (3.5-5.1) mmol/L Chloride (98-107) mmol/L Carbon Dioxide (21-32) mmol/L Anion Gap (3-11) BUN (6-23) mg/dl Creatinine (0.6-1.4) mg/dl Est Cr Clr Drug Dosing ml/min eGFR BUN/Creatinine Ratio (10-20) Glucose (70-99(Fasting)) mg/dl POC Glucose 70 235 H (70-99) mg/dl Estimat Average Glucose mg/dl Hemoglobin A1c (4.5-5.6) % Lactate (0.4-2.0) mmol/L Calcium (8.6-10.3) mg/dl Magnesium (1.7-2.4) mg/dl Iron (35-175) mcg/dl TIBC (250-450) mcg/dl Transferrin (200-360) mg/dl Transferrin % Sat (20-50) % Total Bilirubin (0.2-1.0) mg/dl Direct Bilirubin (0-0.2) mg/dl AST (13-39) U/L ALT (7-52) U/L Alkaline Phosphatase (34-104) U/L Lactate Dehydrogenase (86-244) U/L Troponin I High Sens (0-20) pg/ml B-Natriuretic Peptide (0-100) pg/ml Total Protein (6.0-8.3) gm/dl Albumin (3.4-5.0) gm/dl Globulin (2.5-4.0) gm/dl Albumin/Globulin Ratio (0.9-2) Triglycerides (0-150) mg/dl Cholesterol (0-200) mg/dl LDL Cholesterol, Calc mg/dl VLDL Cholesterol, Calc (0-30) mg/dl HDL Cholesterol mg/dl Cholesterol/HDL Ratio (0-5) Procalcitonin (0-0.5) ng/ml TSH (0.300-4.500) uIu/ml Urine Color Yellow Urine Appearance Clear (Clear) Urine pH 5.5 (4.5-7.5) Ur Specific [place] 1.015 (1.000-1.030) Urine Protein 2+ H (Negative) Urine Glucose (UA) Trace H (Negative) Urine Ketones Negative (Negative) Urine Blood Negative (Negative) Urine Nitrite Negative (Negative) Urine Bilirubin Negative (Negative) Urine Urobilinogen Negative (Negative) Ur Leukocyte Esterase Negative (Negative) Urine WBC (Auto) 0-5 (0-5) /hpf Urine RBC (Auto) 0-2 (0-2) /hpf U Hyaline Cast (Auto) 0-2 (0-2) /lpf U Epithel Cells (Auto) 0-2 (0-2) /hpf Urine Bacteria (Auto) None Seen (None Seen) Fluid Neutrophils % % Fluid Lymphocytes % % Fluid Meso/Macro/[place] % % Fluid Comment Pleural Fluid Source Pleural Color Pleural Appearance Pleural pH (7.3-7.4) Pleural WBC (Auto) /uL Pleural RBC (Auto) /uL Pleural Total Protein gm/dl Pleural LDH U/L Pleural Glucose mg/dl Pleural Amylase U/L Synovial Source Synovial Color Synovial Appearance Synovial WBC (Auto) (0-200) /ul Synovial RBC (Auto) /uL Synovial Polynuclear % % Synovial Mononuclear % % Nasal Screen MRSA (PCR) Negative (Negative) Stool Occult Bld Scrn Negative (Negative) Random Vancomycin (10-20) mcg/ml SARS-CoV-2 (PCR) (Negative) Influenza Type A (PCR) (Neg) Influenza Type B (PCR) (Neg) RSV (RT-PCR) (Neg) Blood Type Antibody Screen Crossmatch 04/22/24 04/22/24 04/22/24 Range/Units 23:12 20:31 18:13 WBC (4.8-10.8) K/ul RBC (4.70-6.10) M/uL Hgb (14.0-18.0) g/dl POC Hgb (14.0-18.0) g/dl Hct (42.0-52.0) % POC Hct (42-52) % MCV (80.0-100.0) fL MCH (25.0-34.0) pg MCHC (32.0-36.0) g/dL RDW Std Deviation (36.4-46.3) fL RDW Coeff of Jono (11.5-14.5) % Plt Count (130-400) K/uL MPV (9.4-12.4) fL Immature Gran % (Auto) % Neut % (Auto) % Lymph % (Auto) % [place] % (Auto) % Eos % (Auto) % Baso % (Auto) % Neut # (Auto) (1.40-6.50) K/uL Lymph # (Auto) (1.20-3.40) K/uL [place] # (Auto) (0.11-0.59) K/uL Eos # (Auto) (0.00-0.50) K/uL Baso # (Auto) (0.00-0.20) K/uL Immature Gran # (Auto) (0.01-0.20) K/uL Absolute Nucleated RBC (0.00-0.12) K/uL Nucleated RBC % (auto) % Toxic Granulation Dohle Bodies Polychromasia PT (9.0-12.0) Seconds INR (0.9-1.1) APTT (21-31) Seconds PTT Ratio POC pH (7.35-7.45) POC pCO2 (35-46) mmHg POC pO2 (80-95) mmHg POC HCO3 (19-24) fidel/L POC Total CO2 (24-31) mmol/L POC Base Excess (-9-1.8) fidel/L POC ABG O2 Sat (90-95) % VBG pH (7.36-7.41) VBG pCO2 (38-50) mmHg VBG pO2 mmHg VBG HCO3 mmol/L VBG O2 Saturation % VBG Base Excess mEq/L POC Sodium (135-144) mmol/L Sodium (136-145) mmol/L POC Potassium (3.3-5.0) mmol/L Potassium (3.5-5.1) mmol/L Chloride (98-107) mmol/L Carbon Dioxide (21-32) mmol/L Anion Gap (3-11) BUN (6-23) mg/dl Creatinine (0.6-1.4) mg/dl Est Cr Clr Drug Dosing ml/min eGFR BUN/Creatinine Ratio (10-20) Glucose (70-99(Fasting)) mg/dl POC Glucose 246 H 126 H (70-99) mg/dl Estimat Average Glucose mg/dl Hemoglobin A1c (4.5-5.6) % Lactate (0.4-2.0) mmol/L Calcium (8.6-10.3) mg/dl Magnesium (1.7-2.4) mg/dl Iron (35-175) mcg/dl TIBC (250-450) mcg/dl Transferrin (200-360) mg/dl Transferrin % Sat (20-50) % Total Bilirubin (0.2-1.0) mg/dl Direct Bilirubin (0-0.2) mg/dl AST (13-39) U/L ALT (7-52) U/L Alkaline Phosphatase (34-104) U/L Lactate Dehydrogenase (86-244) U/L Troponin I High Sens 37.8 H (0-20) pg/ml B-Natriuretic Peptide (0-100) pg/ml Total Protein (6.0-8.3) gm/dl Albumin (3.4-5.0) gm/dl Globulin (2.5-4.0) gm/dl Albumin/Globulin Ratio (0.9-2) Triglycerides (0-150) mg/dl Cholesterol (0-200) mg/dl LDL Cholesterol, Calc mg/dl VLDL Cholesterol, Calc (0-30) mg/dl HDL Cholesterol mg/dl Cholesterol/HDL Ratio (0-5) Procalcitonin (0-0.5) ng/ml TSH (0.300-4.500) uIu/ml Urine Color Urine Appearance (Clear) Urine pH (4.5-7.5) Ur Specific [place] (1.000-1.030) Urine Protein (Negative) Urine Glucose (UA) (Negative) Urine Ketones (Negative) Urine Blood (Negative) Urine Nitrite (Negative) Urine Bilirubin (Negative) Urine Urobilinogen (Negative) Ur Leukocyte Esterase (Negative) Urine WBC (Auto) (0-5) /hpf Urine RBC (Auto) (0-2) /hpf U Hyaline Cast (Auto) (0-2) /lpf U Epithel Cells (Auto) (0-2) /hpf Urine Bacteria (Auto) (None Seen) Fluid Neutrophils % % Fluid Lymphocytes % % Fluid [place]/Macro/[place] % % Fluid Comment Pleural Fluid Source Pleural Color Pleural Appearance Pleural pH (7.3-7.4) Pleural WBC (Auto) /uL Pleural RBC (Auto) /uL Pleural Total Protein gm/dl Pleural LDH U/L Pleural Glucose mg/dl Pleural Amylase U/L Synovial Source Synovial Color Synovial Appearance Synovial WBC (Auto) (0-200) /ul Synovial RBC (Auto) /uL Synovial Polynuclear % % Synovial Mononuclear % % Nasal Screen MRSA (PCR) (Negative) Stool Occult Bld Scrn (Negative) Random Vancomycin (10-20) mcg/ml SARS-CoV-2 (PCR) (Negative) Influenza Type A (PCR) (Neg) Influenza Type B (PCR) (Neg) RSV (RT-PCR) (Neg) Blood Type Antibody Screen Crossmatch 04/22/24 04/22/24 04/22/24 Range/Units 17:01 16:40 15:22 WBC (4.8-10.8) K/ul RBC (4.70-6.10) M/uL Hgb 6.8 L* (14.0-18.0) g/dl POC Hgb (14.0-18.0) g/dl Hct 21.4 L (42.0-52.0) % POC Hct (42-52) % MCV (80.0-100.0) fL MCH (25.0-34.0) pg MCHC (32.0-36.0) g/dL RDW Std Deviation (36.4-46.3) fL RDW Coeff of Jono (11.5-14.5) % Plt Count (130-400) K/uL MPV (9.4-12.4) fL Immature Gran % (Auto) % Neut % (Auto) % Lymph % (Auto) % [place] % (Auto) % Eos % (Auto) % Baso % (Auto) % Neut # (Auto) (1.40-6.50) K/uL Lymph # (Auto) (1.20-3.40) K/uL [place] # (Auto) (0.11-0.59) K/uL Eos # (Auto) (0.00-0.50) K/uL Baso # (Auto) (0.00-0.20) K/uL Immature Gran # (Auto) (0.01-0.20) K/uL Absolute Nucleated RBC (0.00-0.12) K/uL Nucleated RBC % (auto) % Toxic Granulation Dohle Bodies Polychromasia PT (9.0-12.0) Seconds INR (0.9-1.1) APTT (21-31) Seconds PTT Ratio POC pH (7.35-7.45) POC pCO2 (35-46) mmHg POC pO2 (80-95) mmHg POC HCO3 (19-24) fidel/L POC Total CO2 (24-31) mmol/L POC Base Excess (-9-1.8) fidel/L POC ABG O2 Sat (90-95) % VBG pH (7.36-7.41) VBG pCO2 (38-50) mmHg VBG pO2 mmHg VBG HCO3 mmol/L VBG O2 Saturation % VBG Base Excess mEq/L POC Sodium (135-144) mmol/L Sodium (136-145) mmol/L POC Potassium (3.3-5.0) mmol/L Potassium (3.5-5.1) mmol/L Chloride (98-107) mmol/L Carbon Dioxide (21-32) mmol/L Anion Gap (3-11) BUN (6-23) mg/dl Creatinine (0.6-1.4) mg/dl Est Cr Clr Drug Dosing ml/min eGFR BUN/Creatinine Ratio (10-20) Glucose (70-99(Fasting)) mg/dl POC Glucose (70-99) mg/dl Estimat Average Glucose mg/dl Hemoglobin A1c (4.5-5.6) % Lactate (0.4-2.0) mmol/L Calcium (8.6-10.3) mg/dl Magnesium (1.7-2.4) mg/dl Iron 31 L (35-175) mcg/dl TIBC 206 L (250-450) mcg/dl Transferrin 147 L (200-360) mg/dl Transferrin % Sat 15 L (20-50) % Total Bilirubin (0.2-1.0) mg/dl Direct Bilirubin (0-0.2) mg/dl AST (13-39) U/L ALT (7-52) U/L Alkaline Phosphatase (34-104) U/L Lactate Dehydrogenase (86-244) U/L Troponin I High Sens 41.6 H (0-20) pg/ml B-Natriuretic Peptide (0-100) pg/ml Total Protein (6.0-8.3) gm/dl Albumin (3.4-5.0) gm/dl Globulin (2.5-4.0) gm/dl Albumin/Globulin Ratio (0.9-2) Triglycerides (0-150) mg/dl Cholesterol (0-200) mg/dl LDL Cholesterol, Calc mg/dl VLDL Cholesterol, Calc (0-30) mg/dl HDL Cholesterol mg/dl Cholesterol/HDL Ratio (0-5) Procalcitonin (0-0.5) ng/ml TSH (0.300-4.500) uIu/ml Urine Color Urine Appearance (Clear) Urine pH (4.5-7.5) Ur Specific [place] (1.000-1.030) Urine Protein (Negative) Urine Glucose (UA) (Negative) Urine Ketones (Negative) Urine Blood (Negative) Urine Nitrite (Negative) Urine Bilirubin (Negative) Urine Urobilinogen (Negative) Ur Leukocyte Esterase (Negative) Urine WBC (Auto) (0-5) /hpf Urine RBC (Auto) (0-2) /hpf U Hyaline Cast (Auto) (0-2) /lpf U Epithel Cells (Auto) (0-2) /hpf Urine Bacteria (Auto) (None Seen) Fluid Neutrophils % % Fluid Lymphocytes % % Fluid Meso/Macro/[place] % % Fluid Comment Pleural Fluid Source Pleural Color Pleural Appearance Pleural pH (7.3-7.4) Pleural WBC (Auto) /uL Pleural RBC (Auto) /uL Pleural Total Protein gm/dl Pleural LDH U/L Pleural Glucose mg/dl Pleural Amylase U/L Synovial Source Left Knee Synovial Color [place] Synovial Appearance Cloudy Synovial WBC (Auto) 30274 H (0-200) /ul Synovial RBC (Auto) 82175 /uL Synovial Polynuclear % 94.2 % Synovial Mononuclear % 5.8 % Nasal Screen MRSA (PCR) (Negative) Stool Occult Bld Scrn (Negative) Random Vancomycin (10-20) mcg/ml SARS-CoV-2 (PCR) NEGATIVE (Negative) Influenza Type A (PCR) Negative (Neg) Influenza Type B (PCR) Negative (Neg) RSV (RT-PCR) Negative (Neg) Blood Type AB Positive Antibody Screen NEGATIVE Crossmatch See Detail 04/22/24 04/22/24 Range/Units 15:08 14:50 WBC 4.21 L (4.8-10.8) K/ul RBC 2.10 L (4.70-6.10) M/uL Hgb 7.1 L (14.0-18.0) g/dl POC Hgb (14.0-18.0) g/dl Hct 21.5 L (42.0-52.0) % POC Hct (42-52) % MCV 102.4 H (80.0-100.0) fL MCH 33.8 (25.0-34.0) pg MCHC 33.0 (32.0-36.0) g/dL RDW Std Deviation 64.1 H (36.4-46.3) fL RDW Coeff of Jono 17.8 H (11.5-14.5) % Plt Count 196 (130-400) K/uL MPV 10.0 (9.4-12.4) fL Immature Gran % (Auto) 0.2 % Neut % (Auto) 74.0 % Lymph % (Auto) 15.9 % [place] % (Auto) 9.7 % Eos % (Auto) 0.2 % Baso % (Auto) 0.0 % Neut # (Auto) 3.11 (1.40-6.50) K/uL Lymph # (Auto) 0.67 L (1.20-3.40) K/uL [place] # (Auto) 0.41 (0.11-0.59) K/uL Eos # (Auto) 0.01 (0.00-0.50) K/uL Baso # (Auto) 0.00 (0.00-0.20) K/uL Immature Gran # (Auto) 0.01 (0.01-0.20) K/uL Absolute Nucleated RBC 0.02 (0.00-0.12) K/uL Nucleated RBC % (auto) 0.5 % Toxic Granulation 1+ Dohle Bodies 1+ Polychromasia 1+ PT 11.0 (9.0-12.0) Seconds INR 1.0 (0.9-1.1) APTT 23 (21-31) Seconds PTT Ratio 0.9 POC pH (7.35-7.45) POC pCO2 (35-46) mmHg POC pO2 (80-95) mmHg POC HCO3 (19-24) fidel/L POC Total CO2 (24-31) mmol/L POC Base Excess (-9-1.8) fidel/L POC ABG O2 Sat (90-95) % VBG pH 7.43 H (7.36-7.41) VBG pCO2 40 (38-50) mmHg VBG pO2 38 mmHg VBG HCO3 27 mmol/L VBG O2 Saturation 68.0 % VBG Base Excess 2.0 mEq/L POC Sodium (135-144) mmol/L Sodium 141 (136-145) mmol/L POC Potassium (3.3-5.0) mmol/L Potassium 4.4 (3.5-5.1) mmol/L Chloride 108 H (98-107) mmol/L Carbon Dioxide 27 (21-32) mmol/L Anion Gap 6 (3-11) BUN 31 H (6-23) mg/dl Creatinine 1.49 H (0.6-1.4) mg/dl Est Cr Clr Drug Dosing 49.1 ml/min eGFR 48.04 BUN/Creatinine Ratio 20.8 H (10-20) Glucose 44 L* (70-99(Fasting)) mg/dl POC Glucose (70-99) mg/dl Estimat Average Glucose mg/dl Hemoglobin A1c (4.5-5.6) % Lactate 2.0 (0.4-2.0) mmol/L Calcium 8.2 L (8.6-10.3) mg/dl Magnesium 1.5 L (1.7-2.4) mg/dl Iron (35-175) mcg/dl TIBC (250-450) mcg/dl Transferrin (200-360) mg/dl Transferrin % Sat (20-50) % Total Bilirubin 0.3 (0.2-1.0) mg/dl Direct Bilirubin 0.1 (0-0.2) mg/dl AST 14 (13-39) U/L ALT 15 (7-52) U/L Alkaline Phosphatase 57 (34-104) U/L Lactate Dehydrogenase (86-244) U/L Troponin I High Sens 44.9 H (0-20) pg/ml B-Natriuretic Peptide (0-100) pg/ml Total Protein 5.2 L (6.0-8.3) gm/dl Albumin 2.3 L (3.4-5.0) gm/dl Globulin (2.5-4.0) gm/dl Albumin/Globulin Ratio (0.9-2) Triglycerides (0-150) mg/dl Cholesterol (0-200) mg/dl LDL Cholesterol, Calc mg/dl VLDL Cholesterol, Calc (0-30) mg/dl HDL Cholesterol mg/dl Cholesterol/HDL Ratio (0-5) Procalcitonin 0.16 (0-0.5) ng/ml TSH (0.300-4.500) uIu/ml Urine Color Urine Appearance (Clear) Urine pH (4.5-7.5) Ur Specific [place] (1.000-1.030) Urine Protein (Negative) Urine Glucose (UA) (Negative) Urine Ketones (Negative) Urine Blood (Negative) Urine Nitrite (Negative) Urine Bilirubin (Negative) Urine Urobilinogen (Negative) Ur Leukocyte Esterase (Negative) Urine WBC (Auto) (0-5) /hpf Urine RBC (Auto) (0-2) /hpf U Hyaline Cast (Auto) (0-2) /lpf U Epithel Cells (Auto) (0-2) /hpf Urine Bacteria (Auto) (None Seen) Fluid Neutrophils % % Fluid Lymphocytes % % Fluid [place] % % Fluid Comment Pleural Fluid Source Pleural Color Pleural Appearance Pleural pH (7.3-7.4) Pleural WBC (Auto) /uL Pleural RBC (Auto) /uL Pleural Total Protein gm/dl Pleural LDH U/L Pleural Glucose mg/dl Pleural Amylase U/L Synovial Source Synovial Color Synovial Appearance Synovial WBC (Auto) (0-200) /ul Synovial RBC (Auto) /uL Synovial Polynuclear % % Synovial Mononuclear % % Nasal Screen MRSA (PCR) (Negative) Stool Occult Bld Scrn (Negative) Random Vancomycin (10-20) mcg/ml SARS-CoV-2 (PCR) (Negative) Influenza Type A (PCR) (Neg) Influenza Type B (PCR) (Neg) RSV (RT-PCR) (Neg) Blood Type Antibody Screen Crossmatch Diagnostic Findings Chest X-Ray 04/22/24 14:38 XR chest 1V portable CLINICAL HISTORY: Sepsis COMPARISON STUDY: 04/07/2024 FINDINGS: Stable cardiomegaly with mild pulmonary vascular congestion. There is small to moderate left pleural effusion, increased. There is increased consolidation at the left lung base. Stable diffuse pulmonary interstitial opacities otherwise. IMPRESSION: Increased pleural effusion and consolidation on the left. ACT 112: Negative or not required by law. Electronically signed by: Keith Burger M.D. 04/22/2024 3:38 PM Chest X-Ray 04/23/24 17:36 EXAM: Radiograph of the Chest 1 View INDICATION: Left thoracentesis TECHNIQUE: Frontal view of the chest. Image obtained at 5:40 PM COMPARISON: 04/07/2024 FINDINGS: Lungs and pleural spaces: Loculated left pleural effusion is slightly decreased. Stable coarse consolidation in the left midlung and worsening generalized interstitial and patchy airspace infiltrates throughout the right lung. No pneumothorax. Heart: Stable large cardiac shadow. Mediastinum: Normal contour. Bones/joints: No fracture, erosion or dislocation. Soft tissues: No abnormality noted. No radiopaque foreign body noted. Lymph nodes: Oval calcification projects over the left mainstem bronchus which could be artifactual or a node. Upper abdomen: No abnormality noted. IMPRESSION: 1. Slight decrease loculated left pleural effusion. No pneumothorax. 2. Worsening interstitial and airspace infiltrates may reflect developing alveolar edema and/or pneumonia. ACT 112: Negative or not required by law. Electronically signed by Roselyn Leal 04-23-2024 6:17 PM Chest X-Ray 04/25/24 08:51 XR chest 1V portable CLINICAL HISTORY: f/u COMPARISON STUDY: Chest radiograph April 23, 2024. Chest CT April 08, 2024. FINDINGS: There is no pneumothorax. A moderate left pleural effusion has increased in size since prior exam. Left mid and lower lung airspace opacity persists. Interstitial thickening and mild alveolar opacities within the right lung persist. Cardiomediastinal silhouette is stable. Several left-sided rib fractures are again noted. IMPRESSION: 1. Increase in size of a moderate left pleural effusion, possibly loculated. No pneumothorax. 2. Persistent left mid and lower lung airspace opacity which may be treatment related. However, pneumonia could appear similar. 3. Interstitial thickening and mild airspace opacities within the right lung which are likely infectious. ACT 112: Negative or not required by law. Electronically signed by: Aubrey Carballo M.D. 04/25/2024 9:16 AM Chest X-Ray 04/25/24 20:00 Exam(s): XR CXR 1 VIEW EXAM: XR Chest, 1 View CLINICAL HISTORY: SOB. TECHNIQUE: Frontal view of the chest. COMPARISON: 04-25-2024. FINDINGS: Heart is mildly enlarged. Interval decrease in lateral and basilar left pleural fluid. No pneumothorax. Multiple left-sided rib fractures are redemonstrated. Focal atelectasis versus infiltrate at the left lung base, unchanged. Diffuse interstitial prominence consistent with pulmonary congestion. Remainder of study is unchanged. IMPRESSION: Slight decrease in left pleural fluid. Otherwise no change. Electronically signed by: Caleb Banks M.D. 04/25/24 23:24 PM Chest X-Ray 04/26/24 04:50 EXAM: XR chest 1V portable CLINICAL HISTORY: Increased oxygen demand. TECHNIQUE: An X-ray image of the chest is obtained in AP projection. COMPARISON: Follow up to 04/23/2024 CR. FINDINGS: Lungs and pleural spaces: The loculated left pleural effusion is nearly unchanged. Stable coarse consolidation in the left mid / lower lung Midly improved interstitial and patchy airspace infiltrates throughout the right lung. No pneumothorax. Heart: Large, Stable large cardiac shadow. Mediastinum: Normal contour. Bones/joints: No fracture, erosion, or dislocation. Soft tissues: No abnormality noted. No radiopaque foreign body was noted. Lymph nodes: No sizable lymphadenopathy Upper abdomen: No abnormality noted. IMPRESSION: 1. The loculated left pleural effusion is nearly unchanged. 2. Stable coarse consolidation in the left mid / lower lung 3. Midly improved interstitial and patchy airspace infiltrates throughout the right lung. Electronically signed by Keiko Feng 04-26-2024 05:50 AM Chest X-Ray 04/27/24 11:36 XR chest 1V not portable CLINICAL HISTORY: s/p left thora COMPARISON STUDY: 04/26/2024 FINDINGS: Stable mild cardiomegaly without pulmonary vascular congestion. Stable diffuse pulmonary interstitial opacities. There is a possible very small left lateral basilar pneumothorax, likely ex vacuo. There is residual left-sided pleural thickening or trace pleural fluid. IMPRESSION: Possible very small left basilar pneumothorax, likely ex vacuo due to failure of the abnormal left lung base to reexpand after removal of pleural fluid. ACT 112: Negative or not required by law. Electronically signed by: Keith Burger M.D. 04/27/2024 12:18 PM Thoracentesis/Paracentesis US 04/27/24 13:13 ULTRASOUND-GUIDED LEFT THORACENTESIS CLINICAL HISTORY: Small loculated left pleural effusion PROCEDURE: Procedure and risks were explained. Informed consent was obtained from his . A final timeout was completed. The left posterior thorax was prepped and draped in sterile fashion. 1% lidocaine was utilized for skin anesthesia. Utilizing ultrasound guidance, a 5 [place] safety centesis catheter was advanced into the small loculated left pleural effusion. Ultrasound images were obtained. A total of 150 mL of cloudy munira-colored pleural fluid was removed and sent to the lab. The catheter was removed and Band-Aid applied. The patient tolerated the procedure well. A chest x-ray will be obtained post procedure. Vital signs will be monitored on the floor. IMPRESSION: Ultrasound-guided left thoracentesis as above. Performed, dictated, and signed by Nico Alston PA-C; to be co-signed by Dr. Keith Burger. Electronically signed by: Keith Burger M.D. 04/27/2024 4:[address] 04/27/24 13:22 CT chest diagnostic wo con CT DOSE: 713.02 mGy.cm CLINICAL HISTORY: 78 years-old Male with Possible pembrolizumab toxicity. Acute shortness of breath TECHNIQUE: Multiaxial CT images of the chest were performed without contrast. A dose lowering technique was utilized adhering to the principles of ALARA. COMPARISON: Chest radiograph of same day, chest CT 04/08/2024, Chest radiograph 04/07/2024, chest CT to April 03, 2024, Chest CT February 29, 2024. CT of the abdomen and pelvis March 31, 2024. Chest radiograph April 02, 2024. FINDINGS: The heart is mildly enlarged. There is moderate coronary artery and aortic valvular calcification. There is no pericardial effusion. Calcified mediastinal and right hilar lymph nodes appear generally unchanged. As previously described, the prominent mediastinal lymph nodes are similar to CT of February 29, 2024. A prevascular lymph node on image 98 and measures 1.2 x 0.8 cm. Moderate size left pleural effusion has mildly increased in size. Left-sided pleural thickening is unchanged. No right pleural effusion. There is no pneumothorax. Band-like left upper lobe opacity and subpleural left lower lobe opacity are similar to CT of February 29, 2024. Central airways are patent. Interlobular septal thickening has progressed from the 04/08/2024 exam. Moderate pulmonary emphysema with bronchial wall thickening. There is progressive worsening of the patchy bilateral ground glass densities with mild patchy and scattered consolidative and reticulonodular opacities. Multiple subacute to chronic left-sided rib fractures are again noted. There are no acute fractures within the thorax. Small hiatal hernia with distal esophageal wall thickening. No acute upper abdominal abnormality. Bilateral renal vascular calcifications. IMPRESSION: 1. Cardiomegaly with interstitial pulmonary edema and increased size of the left pleural effusion. 2. Chronic pleural thickening of the left hemithorax. 3. Emphysema with progressive patchy bilateral pulmonary opacities suggestive of a superimposed infectious or inflammatory pneumonitis. 4. Bandlike left upper lobe opacity redemonstrated suggestive of posttreatment related changes. 5. Unchanged mediastinal and hilar lymphadenopathy. ACT 112: Negative or not required by law. Electronically signed by: Dinh Healy M.D. 04/27/2024 2:28 PM Chest X-Ray 04/28/24 07:00 EXAM: XR chest 1V portable CLINICAL HISTORY: copd, lung ca, malig eff, left thoracentesis X2 TECHNIQUE: X-ray images of the chest were obtained in posteroanterior (PA) and lateral projections. COMPARISON: compared to previous study 04/26/2024 FINDINGS: Pulmonary Parenchyma: Regressive course regarding the previously noted left sided pleural effusion (being mild in the current study). No right sided pleural effusion. Still noted diffuse coarse texture of both lung casey with newly devloped multiple bilateral opacities. Left middle zone thick atelectatic band is seen. Heart and Mediastinum: Heart size and shape are normal. No mediastinal widening or masses. No hilar or mediastinal lymphadenopathy. Prominent aortic arch. Soft Tissues: Soft tissues overlying the chest wall are unremarkable. IMPRESSION: 1. Regressive course regarding the previously noted left sided pleural effusion (being mild in the current study). 2. Still noted diffuse coarse texture of both lung casey with newly devloped multiple bilateral opacities. 3. Left middle zone thick atelectatic band. 4. Prominent aortic arch. Electronically signed by Keiko Feng 04-28-2024 07:52 AM PG Care Time/CCT Total # of Minutes Spent Total Time Spent with Patient: Total time spent is greater than 50% in coordination of care (as documented) at patient's floor/unit and/or counseling patient: I spent 115 minutes overall addressing this case: 15 min in medical data review/discussion with referring pr ovider(s) and/or preparation for the visit 25 min in direct interaction with the patient/exam 60 min in Advance Care Planning/Goals of Care discussions as detailed above in note (must be >16min) 5 min in subsequent review and synthesis of assessment and plan 10 min communicating with other providers regarding the patient's case: Advanced Care Planning [id number] Advanced Care Planning 30 Min [id number] Advanced Care Planning Additional 30 [place] [address] IN/OBS CONSULT LVL 4,60M (25 - SIGNIFICANT, SEPARATELY IDENTIFIABLE ) Patient Type New Medical Decision Making High Complexity Diagnoses Altered mental status R41.82 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; C80.1 Dyspnea and respiratory abnormalities R06.00; R06.89 Discussion about advance care planning held with family member Z71.0 Loculated pleural effusion J90 Palliative care by specialist Z51.5 Metastatic lung cancer (metastasis from lung to other site) C34.90 Stage IV squamous cell carcinoma of lung C34.90 (HFpEF) heart failure with preserved ejection fraction I50.30 Additional Codes Advanced Care Planning - 23104 Advanced Care Planning 30 Min: 77440 Advanced Care Planning 30 Min ([id number]) Advanced Care Planning - 70553 Advanced Care Planning Additional 30 Min: 08802 Advanced Care Planning Additional 30 Min ([id number])
--- NOTE | 2024-04-28 15:33 | Infectious Disease Progress Nt ---
Date of Service April 28, 2024 Assessment & Plan (1) Acute respiratory failure with hypoxia: (2) Loculated pleural effusion: (3) Septic joint of left knee joint: (4) Pseudogout of left knee: Plan 78-year-old man with past medical history of metastatic adenocarcinoma of the [place] ng (sp cycle 1 pembrolizumab on 01/22/24 /cycle 3 held and s/p cycle 1 carboplatin/paclitaxel 01/29/24 and cycle 3 03/26/24), COPD, DM 2, hypertension, admitted on 04/22 with L knee septic arthritis. Also found to have exudative L pleural effusion. He was recently admitted 03/31/24 - 04/11/24 for acute hypoxic respiratory failure thought to be 2/2 possible multifocal pneumonia, pancytopenia and diffuse bone and joint pain. He was treated with Zosyn inpatient and discharged on Augmentin. He also was noted to have a left knee effusion but declined aspiration and was treated with pain medication. He was discharged to inpatient rehab. He had progressive left knee pain/swelling and was seen by orthopedic surgery outpatient. He underwent an arthrocentesis on 04/21/24 which showed 17,584 WBC with 92% neutrophils and grew rare Klebsiella pneumoniae and rare possible calcium pyrophosphate dihydrate crystals c/f pseudogout. On admission, he is afebrile, hypoxic and required 6 L nasal cannula. Labs: WBC 4.21, hemoglobin 6.8, creatinine 1.49, procalcitonin 0.16. UA negative for pyuria. MRSA nasal screen negative. Repeat arthrocentesis shows 37, 125 WBC with 94% neutrophils, growing rare Klebsiella pneumoniae. Chest x-ray showed increased left pleural effusion and consolidation. Underwent thoracentesis 04/23, which showed exudative fluid with culture NG, cytology negative for malignant ce lls. Ortho initially recommended antibiotic therapy and serial aspiration, however they feel that he will benefit from an arthroscopic irrigation and debridement once medically optimized. Underwent left knee arthroscopic debridement and synovectomy on 04/24/24. Microbiology: 04/21 Left knee synovial fluid culture: rare Klebsiella pneumoniae (pansensitive) 04/22 Blood cultures NGTD 04/22 Left knee synovial fluid culture: rare Klebsiella pneumoniae (pansensitive) 04/23 MRSA nares: neg 04/23 L pleural fluid cx: NG. GS neg 04/24 L knee synovium cx: NGTD Antibiotics: Ceftriaxone 04/27 - present Cefepime Vancomycin , 04/25 Problems: #Left [place] knee septic arthritis with Klebsiella pneumoniae #Exudative L pleural effusion: malignant vs parapneumonic #Acute hypoxic respiratory failure #Metastatic lung adenocarcinoma on immunotherapy and chemotherapy -Status post pembrolizumab times 1, carboplatin/paclitaxel times cycle 1 and 3 Discussion: 04/23 pleural fluid culture NG, cytology negative for malignant cells. Underwent repeat thoracentesis 04/27, again exudative. L knee OR culture NGTD, but yield likely decreased as pt had received preceding antibiotics. Arthrocentesis cultures grew Kleb pneumo, for which pt is now on ceftriaxone. Recommendations: - Continue ceftriaxone 2 g IV q24h for L knee septic arthritis. On discharge, can transition to levofloxacin to complete a 4 week course from the OR through 05/21/24 (levo dosed per renal function--currently would be levofloxacin 750 mg PO q48h for CrCl 30-49) Will sign off. Can re-consult ID if pleural fluid cultures become positive. Admission and Anticipated Discharge Date Admission Date: April 22, 2024 Subjective This patient recommendation is based on a telemedicine consult request which was completed asynchronously through chart review and information provided by the primary physician. The patient was not seen or examined today. The evaluation is consultative in nature and all patient care and treatment decisions can either be accepted or rejected by the patient's primary hospital-based treating physician using their own independent medical judgment for their patient. Time Spent Reviewing Chart: 11 - 20 minutes Results & Data Vital Signs (Past 12 Hours) Vital Signs Temp Pulse Pulse Resp BP Pulse Ox O2 Del Method 04/28/24 14:04 88 04/28/24 08:00 36.6 C 89 18 145/69 H 97 Nasal Cannula 04/28/24 08:00 78 04/28/24 08:00 36.5 C 77 18 139/77 98 Nasal Cannula 04/28/24 07:48 CPAP 04/28/24 07:34 78 17 98 CPAP 04/28/24 07:34 78 17 97 O2 Flow Rate FiO2 04/28/24 14:04 04/28/24 08:00 2 04/28/24 08:00 04/28/24 08:00 2 04/28/24 07:48 04/28/24 07:34 35 04/28/24 07:34 35 Laboratory Results Short CBC 04/28/24 Range/Units 05:43 WBC 9.47 (4.8-10.8) K/ul Hgb 8.5 L (14.0-18.0) g/dl Hct 26.7 L (42.0-52.0) % Plt Count 159 (130-400) K/uL BMP 04/28/24 05:43 Sodium 142 Potassium 3.6 Chloride 105 Carbon Dioxide 31 BUN 37 H Creatinine 2.17 H D Glucose 130 H Calcium 8.6 Diagnostic Findings Chest X-Ray 04/28/24 07:00 EXAM: XR chest 1V portable CLINICAL HISTORY: copd, lung ca, malig eff, left thoracentesis X2 TECHNIQUE: X-ray images of the chest were obtained in posteroanterior (PA) and lateral projections. COMPARISON: compared to previous study 04/26/2024 FINDINGS: Pulmonary Parenchyma: Regressive course regarding the previously noted left sided pleural effusion (being mild in the current study). No right sided pleural effusion. Still noted diffuse coarse texture of both lung casey with newly devloped multiple bilateral opacities. Left middle zone thick atelectatic band is seen. Heart and Mediastinum: Heart size and shape are normal. No mediastinal widening or masses. No hilar or mediastinal lymphadenopathy. Prominent aortic arch. Soft Tissues: Soft tissues overlying the chest wall are unremarkable. IMPRESSION: 1. Regressive course regarding the previously noted left sided pleural effusion (being mild in the current study). 2. Still noted diffuse coarse texture of both lung casey with newly devloped multiple bilateral opacities. 3. Left middle zone thick atelectatic band. 4. Prominent aortic arch. Electronically signed by Keiko Feng 04-28-2024 07:52 AM Medications Administered Current Inpatient Medications Acetaminophen (Acetaminophen 325 Mg Tab) 650 mg PO Q4H PRN PRN Reason: Pain or Fever Stop: 05/22/24 16:49 Albuterol (Albuterol 0.083% Nebu Soln 3 Ml Vial) 2.5 mg NEB Q6H PRN; Protocol PRN Reason: Shortness Of Breath Or Wheezing Stop: 05/22/24 16:55 Albuterol (Albut/Ipratrop 3mg/0.5mg Neb 3 Ml Vial) 3 ml NEB QIDR PRN; Protocol PRN Reason: Wheezing Stop: 05/22/24 18:59 Albuterol (Albuterol Hfa 8 Gm Inhaler) 2 puffs INH Q6H PRN PRN Reason: shortness of breath or wheezing Stop: 05/24/24 19:34 Albuterol (Albut/Ipratrop 3mg/0.5mg Neb 3 Ml Vial) 3 ml NEB Q6R PRN; Protocol PRN Reason: Wheezing Stop: 05/26/24 06:59 Aspirin (Aspirin 325 Mg Ectab) 325 mg PO DAILY MONI Stop: 05/25/24 08:59 Last Admin: 04/28/24 09:11 Dose: 325 mg Benzonatate (Benzonatate 100 Mg Capsule) 200 mg PO Q8H PRN PRN Reason: cough Stop: 05/24/24 19:34 Budesonide (Budesonide 0.25 Mg/2 Ml Vial (Pulmicort)) 0.25 mg NEB BIDR MONI Stop: 05/24/24 18:59 Last Admin: 04/28/24 07:34 Dose: 0.25 mg Citalopram Hydrobromide (Citalopram 20 Mg Tab) 60 mg PO QAM MONI Stop: 05/23/24 08:59 Last Admin: 04/28/24 09:11 Dose: 60 mg Clopidogrel Bisulfate (Clopidogrel Bisulfate 75 Mg Tab) 75 mg PO DAILY MONI Stop: 05/25/24 08:59 Last Admin: 04/28/24 09:10 Dose: 75 mg Dextrose (Dextrose 50% 50 Ml Syringe) 25 - 50 ml IV UD PRN; Protocol PRN Reason: Hypoglycemia Protocol Stop: 05/27/24 08:49 Formoterol Fumarate (Formoterol 20 Mcg/2 Ml Vial) 20 mcg NEB BIDR MONI Stop: 05/24/24 18:59 Last Admin: 04/28/24 07:34 Dose: 20 mcg Gabapentin (Gabapentin 600 Mg Tab) 600 mg PO TID MONI Stop: 05/22/24 20:59 Last Admin: 04/28/24 13:09 Dose: 600 mg Glucagon (Glucagon For Inj 1 Mg Vial) 1 mg SQ UD PRN; Protocol PRN Reason: Hypoglycemia Protocol Stop: 05/27/24 08:49 Glucose (Glucose 40% Gel 15 Gm Tube) 15 - 30 gm PO UD PRN; Protocol PRN Reason: Hypoglycemia Protocol Stop: 05/27/24 08:49 Glucose (Glucose 10 Tab/Tube) 4 - 8 tab PO UD PRN; Protocol PRN Reason: Hypoglycemia Protocol Stop: 05/27/24 08:49 Ceftriaxone Sodium (Rocephin) 2,000 mg in 50 mls @ 100 mls/hr IV Q24H [facility] Stop: 06/08/24 10:59 Last Infusion: 04/28/24 10:42 Dose: Infused Insulin Aspart (Insulin Aspart Per Unit Charge) 0 units SC ACHS [facility] Stop: 05/27/24 11:29 Last Admin: 04/28/24 12:49 Dose: 3 units Insulin Human NPH (Insulin Human Nph) 20 units SC BIDM [facility] Stop: 05/27/24 16:59 Last Admin: 04/28/24 09:12 Dose: 20 units Linaclotide (Linaclotide 145 Mcg Capsule) 290 mcg PO DAILY [facility] Stop: 05/23/24 08:59 Last Admin: 04/28/24 09:12 Dose: 290 mcg Magnesium Oxide (Magnesium Oxide 400 Mg Tab) 400 mg PO DAILY [facility] Stop: 05/23/24 08:59 Last Admin: 04/28/24 09:11 Dose: 400 mg Miscellaneous (Order Awaiting Action Darrell Cordero 50_25) 1 each N/A QS [facility] Stop: 05/23/24 00:00 Last Admin: 04/28/24 15:01 Dose: Not Given Miscellaneous (Carbohydrates For Hypoglycemia ) 15 - 30 gm PO UD PRN PRN Reason: Hypoglycemia Protocol Stop: 05/27/24 08:49 Naloxone HCl (Naloxone Hcl 0.4 Mg/1 Ml Vial/Carp) 0.1 mg IV Q5M PRN PRN Reason: Oversedation/Resp Depression Stop: 05/25/24 22:00 Nitroglycerin (Nitroglycerin Sl 0.4 Mg/Tab Tab) 0.4 mg SL Q5M PRN PRN Reason: Chest Pain Stop: 05/24/24 19:34 Ondansetron HCl (Ondansetron Inj 2 Mg/Ml 2 Ml Vial) 4 mg IV Q6H PRN PRN Reason: Nausea Stop: 05/22/24 16:49 Ondansetron HCl (Ondansetron 4 Mg Od Tab) 8 mg PO Q8 PRN PRN Reason: Nausea And Vomiting Stop: 05/24/24 19:45 Oxycodone HCl (Oxycodone Hcl Ir 5 Mg Tab (Immediate Release)) 5 mg PO Q6 PRN PRN Reason: Pain Stop: 05/06/24 18:19 Last Admin: 04/25/24 13:40 Dose: 5 mg Pantoprazole Sodium (Pantoprazole 40 Mg Tab) 40 mg PO BID [facility] Stop: 05/24/24 20:59 Last Admin: 04/28/24 09:11 Dose: 40 mg Rosuvastatin Calcium (Rosuvastatin Calcium 20 Mg Tab) 40 mg PO DAILY [facility] Stop: 05/23/24 08:59 Last Admin: 04/28/24 09:10 Dose: 40 mg
[2024-04-28] MEDS: CARBOHYDRATES FOR HYPOGLYCEMIA PO PRN (20:34)
[2024-04-29 07:10] LABS: Hematocrit (blood only) 27.5 % (42.0-52.0); Hemoglobin 8.9 g/dl (14.0-18.0); Mean Corpuscular Hemoglobin 32.2 pg (25.0-34.0); Mean Corpuscular Hgb Conc 32.4 g/dL (32.0-36.0); Mean Corpuscular Volume 99.6 fL (80.0-100.0); Mean Platelet Volume 10.2 fL (9.4-12.4); Nucleated RBC # (auto) 0.04 K/uL (0.00-0.12); Nucleated RBC % (auto) 0.3 %; Platelet Count 178 K/uL (130-400); RDW Coefficient of Variation 17.1 % (11.5-14.5); RDW Standard Deviation 60.5 fL (36.4-46.3); Red Blood Count 2.76 M/uL (4.70-6.10); White Blood Count 12.61 K/ul (4.8-10.8)
[2024-04-29 07:25] LABS: BUN Creatinine Ratio 15.1 (10-20); Calcium 8.4 mg/dl (8.6-10.3); Creatinine Clr Calc Pharmacy 35.6 ml/min
[2024-04-29 07:33] LABS: Basophils # (auto) 0.03 K/uL (0.00-0.20); Basophils % (auto) 0.2 %; Eosinophils # (auto) 0.04 K/uL (0.00-0.50); Eosinophils % (auto) 0.3 %; Immature Granulocytes # (auto) 0.32 K/uL (0.01-0.20); Immature Granulocytes % (auto) 2.5 %; Lymphocytes # (auto) 1.54 K/uL (1.20-3.40); Lymphocytes % (auto) 12.2 %; Monocytes % (auto) 8.7 %; Neutrophils # (auto) 9.58 K/uL (1.40-6.50); Neutrophils % (auto) 76.1 %; Polychromasia 1+
[2024-04-29] MEDS: DEXTROSE 50% 50 ML SYRINGE IV PRN (07:56)
[2024-04-29 11:21] VITALS: RESP 19; TEMP 99.1; O2SAT 94
--- NOTE | 2024-04-29 11:32 | Discharge Summary ---
Discharge Summary Date of Service April 29, 2024 Principal Dx & Hospital Course #1 = Principal Diagnosis (1) Acute hypoxemic respiratory failure: Multifactorial due to COPD and underlying lung malignancy with malignant pleural effusion. Supplemental oxygen per nasal cannula to maintain saturation greater than 90%. He will need 4 L/min oxygen continuously at discharge. (2) Septic joint of left knee joint: Appreciate orthopedic consultation and recommendations. He underwent arthroscopy and washout several days ago. Postoperative day #5. Klebsiella isolated. Infectious disease consultation appreciated. Cefepime has been switched to intravenous Rocephin. He will be switched to oral ciprofloxacin going forward to complete a 1 month antibiotic course. (3) Malignant pleural effusion: He has now undergone left thoracentesis x 2 this admission. Cytology was negative but this undoubtedly is a malignant pleural effusion from known underlying lung cancer (4) Acute kidney injury superimposed on CKD: Baseline chronic kidney disease stage III. Creatinine trended upward to 2.6 but is now improving. Will monitor intake and output. Serial labs. (5) (HFpEF) heart failure with preserved ejection fraction: Stable. Monitor intake and output. Continue current medical management (6) Stage IV squamous cell carcinoma of lung: With associated malignant pleural effusion. Left thoracentesis completed twice this admission. Appreciate pulmonary medicine consultation recommendations (7) Type 2 diabetes mellitus: Lantus has been switched to NPH twice daily. He was hypoglycemic this morning, April 29, and morning insulin dose was held. He was given one half amp of intravenous D50. NPH dosage has been down titrated and will resume this evening. Sliding scale coverage. ADA diet. (8) Anemia: Acute on chronic. He received a blood transfusion this admission. No overt bleeding at this time. Serial labs (9) Ambulatory dysfunction: The patient requires a wheelchair as he is not able to ambulate any distance safely with a walker or cane Plan The patient and have refused SNF placement. He will be discharged home with home health services. Gould catheter will remain in place for now. Supplemental oxygen prescription has been provided. He will remain on Cipro 500 mg twice a day to complete a 1 month antibiotic course. Admission HPI Per Admitting Provider Pleasant 78-year-old male who presents with complex conglomeration of chief complaints including the above. Recently hospitalized with acute hypoxemic respiratory failure and multifocal pneumonia. Approximately 2 weeks ago. At that time he was treated with antibiotic therapy. He went into atrial fibrillation during that admission for which she was commenced on amiodarone. I do not see where he is fully anticoagulated but his med reconciliation is not completed yet he is on Plavix and aspirin chronically. He is also under the treatment for metastatic lung cancer with a history of renal carcinoma. Last chemotherapy was around March 23. Has been having some increased pain in his left knee and swelling. He had a arthrocentesis yesterday which is a lot of white cells and occasional Klebsiella. With his fever and altered mental status he was sent to the ER for further evaluation and treatment. He was found to be hypoxemic requiring up to 6 L oxygen nasal cannula. Viral respiratory panel was negative. Chest x-ray was pertinent for a large left lower middle lobe infiltrate with a parapneumonic effusion moderate in size. Patient was found to have a hemoglobin of 7.1 which is trending downward from his baseline over the last couple months. Is also found to have a mildly elevated troponin at 44.9. Magnesium low at 1.5. Blood glucose was found to be 44 by lab draw. Course in the ER blood cultures were obtained. He received 2 g of IV cefepime. An amp of D50. We are called admit the patient for further evaluation and treatment. Orthopedics was consulted. They repeated arthrocentesis at the bedside and sent for culture. We are ordering IV vancomycin and IV cefepime for the possible infected left knee joint as well as his possible hospital-acquired pneumonia. We have consulted pulmonology for consideration of thoracentesis. We have ordered stool for occult blood and iron studies. I will hold off on his Plavix and aspirin. Will going to transfuse 2 units packed red blood cells given his respiratory failure and elevated cardiac enzymes with a hemoglobin of 7.1. Last echocardiogram was approximately a year ago when he had a well-preserved left ventricular ejection fraction. Discharge Exam General-alert and oriented x3, no fever, no chills HEENT-head atraumatic and normocephalic, pupils equal and reactive to light, extraocular muscles intact Neck-no lymphadenopathy or thyromegaly, trachea midline Chest-scattered bilateral rhonchi. No wheezing. Cardiac -regular rate and rhythm, normal S1 and S2 Abdomen-normal bowel sounds, no hepatosplenomegaly Extremities-no cyanosis, clubbing, or edema Neuro-cranial nerves II through XII intact, motor and sensory function within normal limits, strength symmetrical with generalized weakness, no focal deficits Psych-depressed affect Discharge Plan Discharge Items Patient Disposition: Home - Home Health Services Reason For Visit: PNA, SEPTIC LEFT JOINT Discharge Diagnosis: Septic left knee joint, malignant left pleural effusion, acute hypoxic respiratory failure, ambulatory dysfunction Activity: As commented below Activity Comment: Ambulate only with assistance Non-emergency contact: Primary Care Provider, Surgeon and Oncologist Call non-emergency contact if: you have any medication questions and your symptoms worsen Follow-up/Referrals: Maria M Reese CRNP [Primary Care Provider] - Diet: Carb Consistent or DM2 Addtl Attending Provider Instructions: Lantus has been switched to NPH insulin. Prescriptions have been sent to [facility] in [place]. Continue oral ciprofloxacin antibiotic for 4 weeks. Use oxygen continuously at 4 L/min per nasal cannula. Gould catheter can be removed at a later date when he is ambulating better. Pending Studies at Discharge: No Stand-Alone Forms: My [employer], Smoking Cessation Medications and DC Order Prescriptions: New ciprofloxacin HCl 500 mg Tablet 500 mg PO BID Qty: 50 0RF Humulin N NPH Insulin KwikPen 100 unit/mL (3 mL) insulin pen 15 unit subcut BID Qty: 15 0RF Continued Breo Ellipta 50-25 mcg/dose blister with device 1 inh inhalation DAILY (DME) CPAP Machine Mis See Rx Instructions .ROUTE .MEDSUPPLY Qty: 1 0RF Rx Instructions: Auto CPAP 5-17 cmH2O; heated humidification; capable of collecting AHI and compliance data with modem; duration use 99 years (DME) CPAP Supplies Misc See Rx Instructions .ROUTE .MEDSUPPLY Qty: 1 0RF Rx Instructions: tubing, filters, all appropriate supplies; mask fit benzonatate 200 mg capsule 200 mg PO Q8H PRN (Reason: cough) Linzess 290 mcg capsule 290 mcg PO DAILY nitroglycerin [Nitrostat] 0.4 mg tablet, sublingual 0.4 mg sublingual Q5M PRN (Reason: Chest Pain) Rx Instructions: 1 tablet SL as needed for chest pain. DO NOT EXCEED 3 tablets in 15 minutes. Call 911 for any unrelieved chest pain. pantoprazole [Protonix] 40 mg tablet,delayed release (DR/EC) 40 mg PO BID citalopram [Celexa] 40 mg tablet 60 mg PO QAM Patient Comments: Take 1 and 1/2 tablets daily by mouth for a total of 40 MG. Rx Instructions: 1 AND 1/2 TABLET DOSE (DME) CPAP Machine Misc See Rx Instructions .ROUTE .MEDSUPPLY Qty: 1 0RF Rx Instructions: INCREASE CPPAP TO 12 CMS TO OPAL HOME albuterol sulfate [Ventolin HFA] 90 mcg/actuation HFA aerosol inhaler 2 puffs INH Q6H PRN (Reason: shortness of breath or wheezing) Qty: 8.5 5RF aspirin 325 mg Tablet 325 mg PO DAILY clopidogrel 75 mg tablet 75 mg PO DAILY ondansetron 8 mg tablet,disintegrating 8 mg PO Q8 PRN (Reason: N/V) oxycodone 5 mg tablet 5 mg PO .EVERY 4-6 HRS PRN (Reason: Pain) gabapentin 800 mg tablet 800 mg PO TID magnesium oxide 400 mg magnesium tablet 400 mg PO DAILY Qty: 14 0RF rosuvastatin 40 mg tablet 40 mg PO DAILY Fiasp FlexTouch U-100 Insulin 100 unit/mL (3 mL) insulin pen 10 unit SUBCUT AC Discontinued insulin degludec [Tresiba FlexTouch U-100] 100 unit/mL (3 mL) insulin pen 34 unit SUBCUT QAM Humulin N NPH Insulin KwikPen 100 unit/mL (3 mL) insulin pen 15 unit subcut .COMPLEX Qty: 15 3RF Rx Instructions: Inject 15 units first thing with steroid treatment. Discharge Orders: Discharge Order (Routine); Ordered 04/29/24 Ordered By: Jose Antonio Clemente Admission Data Admit Date/Time: 04/22/24 16:50 Attending Provider: Jose Antonio Clemente Admit Provider: Melvin Calderon Primary Care Provider: Maria M Reese Other Providers: Melvin Calderon; Kvng Kumari; Natasha Feliz; Dee Horner; Malou Barreto; Lamar Saavedra; Óscar Lyons; Vega Argueta; Caleb Wilkerson; Caleb Lee; Selin Barney; Phong Johnson; Homer Blackwood; Jonas Ramirez; Florence Barr; Moy Almanza; Viki Almanza; Anders Blackwell; Ness Nogueira; Tony Lennon; Cinthia Joiner; Sommer Lawton; Keith Pérez; Karly Merrill; Reanna Reilly; Maria Ellison; Hiral Bartlett A; Rj Bartlett V; Duran Escalona; Dee Bradford; Ishmael Meraz; Rosie Arellano; Rj Mueller; Moses Barr; Yuriy Peralta; Andreina Banuelos; Maday Hills; Rj Bae; Bud Lucio; Ludmila Fuentes; Asim Roldan; Merlyn Thorpe; Eden Ulrich; Hema Hamilton; Edwin Holder; Lanette Sprague; Caleb Herr; Rosalva Santiago; Valentín Villalba; Manjinder Taylor; Carlo Vela; Óscar Knight Jr; Jessica Diehl; Michelle Horton AFatmata; Tamara Robbins; Keith Trujillo; Ed Galeano; Nevaeh Koroma; Michelle Araiza AFatmata; Raghav Plata; Brandon Waller; John Odonnell; Luis Kaba; Angela Carrizales; Laila Major; Alayna Garvey; Maddison Tapia; Leonora Damico; Janae Spangler; Andres Hogan Jr; Maddison Nava; Karly Lopez; Derian Olvera; Mignon Cancino; Melita Muñoz; Michelle Ashley Hospital Stay Data Consultations 04/22/24 16:15 ED Decision to Admit Stat 04/22/24 16:50 Consult Orthopedic Surgery Routine 04/23/24 08:11 Consult Infectious Diseases Routine 04/23/24 10:25 Consult Anesthesiology Routine 04/23/24 11:58 Consult Pulmonology Routine 04/28/24 11:37 Consult Palliative Care Routine Procedures Performed Operation Date: 04/24/24 08:00 Actual Procedures p Left Knee Arthroscopic Debridement(Left) - Kvng Kumari MD Diagnostic Imagining Performed 04/23/24 14:49 US point of care ultrasound Urgent 04/26/24 08:43 US point of care ultrasound Urgent 04/27/24 13:13 IR thoracentesis wo tube US Routine 04/27/24 13:22 CT chest diagnostic wo con Routine Pending Results Patient Have Any Pending Studies at Discharge: No Discharge Instructions Given to Patient (Per Discharging Provider) Lantus has been switched to NPH insulin. Prescriptions have been sent to [facility] in [place]. Continue oral ciprofloxacin antibiotic for 4 weeks. Use oxygen continuously at 4 L/min per nasal cannula. Gould catheter can be removed at a later date when he is ambulating better. Total Time Total Time Spent Total Time Spent (In Minutes): 50 minutes Coding Level of Care Code 84416 INP/OBS DISCH >30 MIN Diagnoses Acute hypoxemic respiratory failure J96.01 Septic joint of left knee joint M00.9 Malignant pleural effusion J91.0 Acute kidney injury superimposed on CKD N17.9; N18.9 (HFpEF) heart failure with preserved ejection fraction I50.30 Stage IV squamous cell carcinoma of lung C34.90 Type 2 diabetes mellitus E11.9 Anemia D64.9 Ambulatory dysfunction R26.2
[2024-04-29 15:27] VITALS: BP 131/66; PULSE 78
[2024-04-29] MEDS: ACETAMINOPHEN 325 MG TAB PO PRN (16:01)
[2024-04-29] MEDS ORDERED: INSULIN HUMAN NPH SC SCH (17:00)
[2024-04-29] MEDS ORDERED: CIPROFLOXACIN 500 MG TAB PO SCH (21:00)
== END 2024-04-29 16:16 | disposition home health service (06) | DRG 485 ==
LOC: ED 14:37 → SUATTDRO 16:50 → 2S 16:50